=== PATIENT | female | born 1960 | race African-American/Black ===

== ENCOUNTER → 2017-12-20 11:59 | Outpatient (CLI) | payer OTHER, MEDICAID, SELFPAY ==
--- NOTE | 2017-12-20 | DI.MG.S_ITS ---
BILATERAL DIGITAL DIAGNOSTIC MAMMOGRAM 3D/2D: 12/20/2017 CLINICAL: Left breast mass. Family history of breast cancer. Comparison is made to exams dated: 11/29/2016 mammogram, 10/07/2015 mammogram - [facility], and 11/10/2010 mammogram - [facility]. The tissue of both breasts is predominantly fatty. There are stable prominent left axillary lymph nodes at the area of concern. No significant masses, calcifications, or other findings are seen in either breast. IMPRESSION: NEGATIVE There is no mammographic evidence of malignancy. The left axillary clinical area of concern may correspond to prominent lymph nodes. Recommend ultrasound. This exam was interpreted at Station ID: [id number]. NOTE: For mammograms, a report in lay terms will be sent to the patient. Approximately 15% of breast malignancies will not be visualized mammographically. In the management of a palpable breast mass, a negative mammogram must not discourage biopsy of a clinically suspicious lesion. Electronically Signed By: John Swann M.D. cj/:12/20/2017 14:43:51 copy to: Wilian Booth ACR BI-RADS Category 1: Negative [id number]
--- NOTE | 2017-12-20 | DI.US.S_ITS ---
ULTRASOUND OF LEFT BREAST: 12/20/2017 CLINICAL: Palpable left axilla lump. Comparison is made to exams dated: 12/20/2017 mammogram, 11/29/2016 mammogram, and 10/07/2015 mammogram - [facility]. Color flow ultrasound of the left breast was performed. Barajas scale images of the real-time examination were reviewed. There is a benign 4.7 cm lymph node in the left axillary tail. This correlates as palpated. IMPRESSION: BENIGN There is no sonographic evidence of malignancy. The 4.7 cm lymph node is benign. A 1 year screening mammogram is recommended. This exam was interpreted at Station ID: [id number]. Electronically Signed By: John hernandez/trent:12/20/2017 15:31:46 copy to: Wilian Booth letter sent: Normal Exam Ultrasound BI-RADS: 2 Benign
== END ==
PROVIDERS: Family Provider Family Medicine; PCP Family Medicine; Visit Provider Nurse Practitioner Family
DX: N63.20 Unspecified lump in the left breast, unspecified quadrant (principal); Z80.3 Family history of malignant neoplasm of breast
CPT/HCPCS: 76642; 77066; G0279

== ENCOUNTER → 2018-02-20 16:33 | Outpatient (CLI) | payer OTHER, MEDICAID, SELFPAY ==
[2018-02-20 17:04] LABS: Hemoglobin A1C% w Est Avg Glu 9.4 % (4.0-6.0)
== END ==
PROVIDERS: Family Provider Family Medicine; PCP Family Medicine; Visit Provider Family Medicine
DX: E11.9 Type 2 diabetes mellitus without complications (principal)
CPT/HCPCS: 36415; 83036

== ENCOUNTER → 2018-05-22 10:31 | Outpatient (CLI) | payer OTHER, MEDICAID, SELFPAY ==
[2018-05-22 12:31] LABS: Add Manual Diff / Slide Review NO; Basophils Percent Auto 0.5 % (0-2); Eosinophils Percent Auto 1.9 % (2-4); Hematocrit 38.3 % (36-46); Lymphocytes Percent Auto 25.4 % (25-40); Mean Corpuscular HGB Conc 31.3 % (30-36); Mean Corpuscular Hemoglobin 23.4 PG (26-34); Mean Corpuscular Volume 74.7 fL (80-100); Monocytes Percent Auto 5.5 % (3-14); Neutrophils Absolute Auto 7400 /uL (3000-5900); Neutrophils Percent Auto 66.7 % (50-75); Platelet Count 263 X10^3/uL (150-400); Red Blood Cell Count 5.12 X10^6/uL (4.0-5.2); Red Cell Distribution Width 16.6 % (11.6-14.8); White Blood Cell Count 11.2 X10^3/uL (4.5-11.0)
[2018-05-22 13:18] LABS: Alanine Aminotransferase 28 IU/L (9-52); Albumin 4.4 g/dL (3.5-5.0); Albumin Globulin Ratio 1.2 (1.0-2.8); Alkaline Phosphatase 112 U/L (38-126); Aspartate Aminotransferase 19 IU/L (14-36); BUN Creatinine Ratio 17.8 (6-22); Bilirubin Total 0.6 mg/dL (0.2-1.3); Blood Urea Nitrogen 16 mg/dL (7-17); Calcium 10.1 mg/dL (8.4-10.2); Carbon Dioxide 30 mmol/L (22-32); Chloride 101 mmol/L (98-107); Cholesterol 200 mg/dL (140-199); Estimated Glomerular Filt Rate > 60.0 mL/min (>60); Globulin 3.6 g/dL (1.7-4.1); Glucose 137 mg/dL (70-100); HDL Cholesterol 55 mg/dL (40-60); HEMOLYSIS < 15 (0-50); LDL Cholesterol Calculated 126 mg/dL (<100); Potassium 4.8 mmol/L (3.4-5.1); Sodium 144 mmol/L (137-145); Triglycerides 93 mg/dL (35-150)
[2018-05-22 16:07] LABS: TSH w/ Reflex to FT4 2.28 uIU/mL (0.47-4.68)
[2018-05-22 17:12] LABS: Hemoglobin A1C% w Est Avg Glu 9.6 % (4.0-6.0)
== END ==
PROVIDERS: PCP Family Medicine; Visit Provider Family Medicine
DX: E11.9 Type 2 diabetes mellitus without complications (principal); Z86.39 Personal history of other endocrine, nutritional and metabolic disease; E78.2 Mixed hyperlipidemia
CPT/HCPCS: 36415; 80053; 80061; 83036; 84443; 85025

== ENCOUNTER 2018-05-30 16:00 | Outpatient (RCR) | payer OTHER, MEDICAID, SELFPAY ==
--- NOTE | 2017-12-25 16:19 | PT.OIE ---
Current Diagnoses Unilateral primary osteoarthritis, left knee (12/24/17) Past Surgical History History of carpal tunnel repair Status post biopsy Status post biopsy Status post colonoscopy Status post hemorrhoidectomy Status post hysterectomy Provider Visit Care Team Role Provider Type Wilian Booth MD Family Provider Physician Primary Care Provider Specialty: Family Practice Address: [address] [place] [address], [id number] Email: [email or web address] Samantha Cruz PA-C Attending Provider Non-Staff Specialty: Medical Address: [address] [place] [address], [phone] Email: Physical Therapy Initial Evaluation PT-OP-A Visit Information Start: 12/24/17 17:35 Freq: Status: Active Protocol: Document 12/25/17 07:18 EA (Rec: 12/25/17 08:22 EA [id number]) Out-Patient Physical Therapy Visit Information Visit Information Visit Type Initial Evaluation Visit Start Time 16:00 Visit Stop Time 16:45 Total Visit Minutes 45 Visit Number 08/18 PT-OP-B Current Condition Start: 12/24/17 17:35 Freq: Status: Active Protocol: Document 12/25/17 07:18 EA (Rec: 12/25/17 08:22 EA [id number]) Current Condition History of Current Condition Onset Date 05/2017 Current Complaints Left localized knee pain History of Current Condition Pt reports fell down on May 2017a nd slammed anterio knee to concrete floor ; states swelling noted and applied ice and rest after the injury. Patient seen her doctor after a week or two and underwent x-ray with no result of fracture. Patient stated knee pain and swelling subsided and kept coming back with increased wlaking and stair climbing. On august 2017, patient [facility] and recommended knee use of knee brace and standard cane. Patient stated that she also received pain medication after that visit and that help her to managed pain. Patient reports had a vacation few weeks ago which she a lot of wlaking and feels knee agrravates again. Prior Treatments and Tests Pain medication and use of Knee prace. Treatment Goals Patient/Caregiver Goals Patient wants to eliminate pain and so she could walk normal. Prior Functional Status Baseline Function- ADL's Independent Baseline Function- Mobility Independent Current Functional Impairments (Reported) Functional Limitations- ADL's Indep Functional Limitations- Mobility/Gait Use of standard cane and knee brace with difficulty in stairs and long distance ambulation. Functional Limitations- Recreation/ Unable Hobbies PT-OP-C Subjective Start: 12/24/17 17:35 Freq: Status: Active Protocol: Document 12/25/17 07:18 EA (Rec: 12/25/17 08:22 EA [id number]) OP-PT Subjective Patient Comments Patient Comments Patient c/o localized left knee pain rated 5/10 with WB activities. Patient Reported Progress Same Patient Questionnaires Lower Extremity Functional Scale LEFS Impairment 60 to 79% Impaired (Score 17- 31) OP-PT Pain Assessment Pain Assessment Grid Paper Pain Assessment Grid Completed Yes Home Pain Medication Use Pain Medications Used Yes Pain Behaviors Pain Behaviors Guarding PT-OP-F Manual Assessment Start: 12/24/17 17:35 Freq: Status: Active Protocol: Document 12/25/17 07:18 EA (Rec: 12/25/17 08:22 EA [id number]) Manual Assessments Soft Tissue Assessment Soft Tissue Mobility Assessment Tight anterior thigh and calf muscles. Joint Mobility Assessment Joint Mobility Assessment unable to assess due to pain PT-OP-G Mobility & Gait Start: 12/24/17 17:35 Freq: Status: Active Protocol: Document 12/25/17 07:18 EA (Rec: 12/25/17 08:22 EA [id number]) OP Mobility Evaluation Bed Mobility Rolling indep Supine to and from Sit indep OP Gait Assessment Gait Gait Assistance Required: Independent Able to Maintain Weight Bearing Status Yes During Gait Assistive Devices Assistive Device Straight Cane Orthotic/Prosthetic Devices or Brace: Yes Gait Deviations General Gait Pattern Antalgic Factors Limiting Gait Function Factors Limiting Gait Function Decreased Strength Pain Stair Climbing Evaluation Evaluation Level of Assist On Stairs Independent Devices Stair Climbing Assistive Devices Straight Cane Technique/Endurance Stair Climbing Direction Ascend Stair Climbing Technique Step to Step Number of Steps Climbed 10 Query Text: Comments Stair Climbing Comments Requires rails due to weakness and pain to left knee PT-OP-J Posture/Palpation/Skin Start: 12/24/17 17:35 Freq: Status: Active Protocol: Document 12/25/17 08:22 EA (Rec: 12/25/17 08:56 EA [id number]) Posture Evaluation Position Standing Knee Posture (L) Genu Valgus (R) Genu Valgus Patellar Posture (L) Laterally Tilted (R) Laterally Tilted Ankle/Foot Posture (L) Pronated (R) Pronated Foot Arch (L) Low Arch (R) Low Arch Palpation Assessment Location One Palpation Location Quads, aand calf Palpation Findings Soft Tissue Tightness Muscle Guarding Tenderness PT-OP-K Range of Motion Start: 12/24/17 17:35 Freq: Status: Active Protocol: Document 12/25/17 08:22 EA (Rec: 12/25/17 08:56 EA [id number]) Knee Goniometric Range of Motion Knee Measured in Degrees Right Knee ROM WFL Yes Patient Position Supine Flexion Active (degrees) 125 Extension Passive (degrees) 0 Hyper-Extension Active 10 Left Knee ROM WFL Yes Patient Position Supine Flexion Active (degrees) 105 Extension Active (degrees) 0 Extension Passive (degrees) 0 Hyper-Extension Active 0 PT-OP-L Special Tests Start: 12/24/17 17:35 Freq: Status: Active Protocol: Document 12/25/17 08:22 EA (Rec: 12/25/17 08:56 EA [id number]) Special Tests Hip Special Tests Rosalba's Test Test Results both sides + Knee Special Tests Rosa Isela's Test Test Results + both sides Rosalba's Test Test Results positive Hughston Pica Test Test Results negative Varus- 0 Degrees Test Results negative Valgus- 25 Degrees Test Results negative Magdiel Test Test Results neg Patellar Grind Test Test Results positbe left side Freedom's Sign Test Results positive left knee Apley's Compression Test Results neg. on both sides PT-OP-M Strength Start: 12/24/17 17:35 Freq: Status: Active Protocol: Document 12/25/17 08:22 EA (Rec: 12/25/17 08:56 EA [id number]) Hip Strength Hip Manual Muscle Testing Right Flexion (L2) 5 Normal Extension (S1) 5 Normal Abduction 5 Normal Adduction 4 Good External Rotation 5 Normal Internal Rotation 4 Good Left Flexion (L2) 3+ Fair+ Extension (S1) 4 Good Abduction 5 Normal Adduction 4 Good External Rotation 5 Normal Internal Rotation 4 Good Knee Strength Knee Manual Muscle Testing Right Flexion (S2) 5 Normal Extension (L3) 5 Normal Left Flexion (S2) 5 Normal Extension (L3) 4 Good PT-OP-Q Treatments Start: 12/24/17 17:35 Freq: Status: Active Protocol: Document 12/25/17 08:22 EA (Rec: 12/25/17 08:56 EA [id number]) Self-Care/Home Management Treatment Education Patient Education Home Exercise Program Joint Protection Pain Management PT-OP-T Assessment and Plan Start: 12/24/17 17:35 Freq: Status: Active Protocol: Document 12/25/17 08:22 EA (Rec: 12/25/17 08:56 EA [id number]) Physical Therapy Assessment Rehab Potential Rehabilitation Potential Good Evaluation Complexity Number of Personal Factors/Comorbidities 3 or More Number of Body Systems Impaired 3 Clinical Presentation at Evaluation Evolving Impairments Impairments Activity Tolerance Gait Pain ROM Soft Tissue Mobility Strength Other Concerns Fall Risk no Age Related Concerns none Barriers to Rehabilitation Body weight and chronicity of the condition. Goals Five Impairment LEFS score of 26/80 Regulatory Intern Goal (LTG) LEFS score of 50/80 LTG Duration 4 wks Four Impairment Left quads and hip weakness Fpc Goal (LTG) Patient will exhibit one grade increase ms strength to left quads for improve stairs decsent and for functional weight bearing mobility. LTG Duration 4 wks Three Impairment Quads Mild tightness Regulatory Intern Goal (LTG) Patient will exhibit full excursion to left quds for effective gait. LTG Duration 4 wks Two Impairment Left knee HyperExt ROM Regulatory Intern Goal (LTG) Patient will exhibit 0-10 knee hyperextension for gait push off LTG Duration 3 wks One Impairment Pain scale of 5/10 with activity Fpc Goal (LTG) Patient with report 2/10 PS with activity LTG Duration 4 wks Assessment Summary Assessment Pleasant 57 y/o female patient w/ c/c of left knee pain and was diagnosed with left knee OA. Patient presented with gait difficulty due to pain and weakness to left knee. Test and assessment reveals tightness to both IT band and hip ext rotators, left quads and calves. Noted tender to touch to left anterior thigh with pain in hip extension. Patient also exhibits sensitive to Clarark's signs which indicative with PF OA. Weakness to left hip flexors and knee extensors is also evident. No indication of legamentous and meniscus dysfunction at the time of the test. In my professional opinion patient will benefit with skilled PT to address the aforementioned issues and reach established functional and treatment goals. Physical Therapy Plan Frequency and Duration Frequency of Treatment 2x/Week Plan of Care Start Date 12/24/17 Plan of Care End Date 02/18/18 Therapeutic Interventions Therapeutic Interventions Gait Training Home Exercise Program Joint Mobilizations Manual Therapy Self-Care/Home Management Soft Tissue Mobilization Taping Therapeutic Exercises Modalities Cold Pack/Ice Massage Electric Stimulation Hot Packs Ultrasound Next Visit Focus/Plan Next Visit Plan Begin Warm up and stretching to tight muscles. Patellar mobilization Please Sign and Return: I have reviewed this Plan of Care and certify that the skilled therapy services above are required to meet the patient???s needs. Physician Signature Date Printed Name and Credentials Clinical Instructor Signature Printed Name and Credentials
--- NOTE | 2018-01-07 16:47 | PT.OTN ---
Current Diagnoses Unilateral primary osteoarthritis, left knee (01/07/18) Physical Therapy Treatment Note PT-OP-A Visit Information Start: 12/24/17 17:35 Freq: Status: Active Protocol: Document 01/07/18 16:40 EA (Rec: 01/07/18 16:47 EA [id number]) Out-Patient Physical Therapy Visit Information Visit Information Visit Type Treatment Note Visit Start Time 16:00 Visit Stop Time 16:45 Total Visit Minutes 45 Visit Number 2/ PT-OP-B Current Condition Start: 12/24/17 17:35 Freq: Status: Active Protocol: Document 12/25/17 07:18 EA (Rec: 12/25/17 08:22 EA [id number]) Current Condition History of Current Condition Onset Date 05/2017 Current Complaints Left localized knee pain History of Current Condition Pt reports fell down on May 2017a nd slammed anterio knee to concrete floor ; states swelling noted and applied ice and rest after the injury. Patient seen her doctor after a week or two and underwent x-ray with no result of fracture. Patient stated knee pain and swelling subsided and kept coming back with increased wlaking and stair climbing. On august 2017, patient [facility] and recommended knee use of knee brace and standard cane. Patient stated that she also received pain medication after that visit and that help her to managed pain. Patient reports had a vacation few weeks ago which she a lot of wlaking and feels knee agrravates again. Prior Treatments and Tests Pain medication and use of Knee prace. Treatment Goals Patient/Caregiver Goals Patient wants to eliminate pain and so she could walk normal. Prior Functional Status Baseline Function- ADL's Independent Baseline Function- Mobility Independent Current Functional Impairments (Reported) Functional Limitations- ADL's Indep Functional Limitations- Mobility/Gait Use of standard cane and knee brace with difficulty in stairs and long distance ambulation. Functional Limitations- Recreation/ Unable Hobbies PT-OP-C Subjective Start: 12/24/17 17:35 Freq: Status: Active Protocol: Document 01/07/18 16:40 EA (Rec: 01/07/18 16:47 EA [id number]) OP-PT Subjective Patient Comments Patient Comments Pt reports left knee is a little better; states inner quads and hamstring is quite sore. PT-OP-F Manual Assessment Start: 12/24/17 17:35 Freq: Status: Active Protocol: Document 12/25/17 07:18 EA (Rec: 12/25/17 08:22 EA [id number]) Manual Assessments Soft Tissue Assessment Soft Tissue Mobility Assessment Tight anterior thigh and calf muscles. Joint Mobility Assessment Joint Mobility Assessment unable to assess due to pain PT-OP-G Mobility & Gait Start: 12/24/17 17:35 Freq: Status: Active Protocol: Document 12/25/17 07:18 EA (Rec: 12/25/17 08:22 EA [id number]) OP Mobility Evaluation Bed Mobility Rolling indep Supine to and from Sit indep OP Gait Assessment Gait Gait Assistance Required: Independent Able to Maintain Weight Bearing Status Yes During Gait Assistive Devices Assistive Device Straight Cane Orthotic/Prosthetic Devices or Brace: Yes Gait Deviations General Gait Pattern Antalgic Factors Limiting Gait Function Factors Limiting Gait Function Decreased Strength Pain Stair Climbing Evaluation Evaluation Level of Assist On Stairs Independent Devices Stair Climbing Assistive Devices Straight Cane Technique/Endurance Stair Climbing Direction Ascend Stair Climbing Technique Step to Step Number of Steps Climbed 10 Query Text: Comments Stair Climbing Comments Requires rails due to weakness and pain to left knee PT-OP-J Posture/Palpation/Skin Start: 12/24/17 17:35 Freq: Status: Active Protocol: Document 12/25/17 08:22 EA (Rec: 12/25/17 08:56 EA [id number]) Posture Evaluation Position Standing Knee Posture (L) Genu Valgus (R) Genu Valgus Patellar Posture (L) Laterally Tilted (R) Laterally Tilted Ankle/Foot Posture (L) Pronated (R) Pronated Foot Arch (L) Low Arch (R) Low Arch Palpation Assessment Location One Palpation Location Quads, aand calf Palpation Findings Soft Tissue Tightness Muscle Guarding Tenderness PT-OP-K Range of Motion Start: 12/24/17 17:35 Freq: Status: Active Protocol: Document 12/25/17 08:22 EA (Rec: 12/25/17 08:56 EA [id number]) Knee Goniometric Range of Motion Knee Measured in Degrees Right Knee ROM WFL Yes Patient Position Supine Flexion Active (degrees) 125 Extension Passive (degrees) 0 Hyper-Extension Active 10 Left Knee ROM WFL Yes Patient Position Supine Flexion Active (degrees) 105 Extension Active (degrees) 0 Extension Passive (degrees) 0 Hyper-Extension Active 0 PT-OP-L Special Tests Start: 12/24/17 17:35 Freq: Status: Active Protocol: Document 12/25/17 08:22 EA (Rec: 12/25/17 08:56 EA [id number]) Special Tests Hip Special Tests Rosalba's Test Test Results both sides + Knee Special Tests Rosa Isela's Test Test Results + both sides Rosalba's Test Test Results positive Hughston Pica Test Test Results negative Varus- 0 Degrees Test Results negative Valgus- 25 Degrees Test Results negative Magdiel Test Test Results neg Patellar Grind Test Test Results positbe left side Freedom's Sign Test Results positive left knee Apley's Compression Test Results neg. on both sides PT-OP-M Strength Start: 12/24/17 17:35 Freq: Status: Active Protocol: Document 12/25/17 08:22 EA (Rec: 12/25/17 08:56 EA [id number]) Hip Strength Hip Manual Muscle Testing Right Flexion (L2) 5 Normal Extension (S1) 5 Normal Abduction 5 Normal Adduction 4 Good External Rotation 5 Normal Internal Rotation 4 Good Left Flexion (L2) 3+ Fair+ Extension (S1) 4 Good Abduction 5 Normal Adduction 4 Good External Rotation 5 Normal Internal Rotation 4 Good Knee Strength Knee Manual Muscle Testing Right Flexion (S2) 5 Normal Extension (L3) 5 Normal Left Flexion (S2) 5 Normal Extension (L3) 4 Good PT-OP-Q Treatments Start: 12/24/17 17:35 Freq: Status: Active Protocol: Document 01/07/18 16:40 EA (Rec: 01/07/18 16:47 EA [id number]) Gym Equipment Shuttle Recovery Unilateral Squats Details pain free range Resistance 2 bands Reps/Time x 12 reps x 2 Therapeutic Exercises Supine Exercises 2 Supine Exercise Name Hamstring and hip rotators stretch Reps/Minutes x 15SH x 2 reps 1 Supine Exercise Name SAQ Side left Resistance 4# AW Reps/Minutes x 12 reps x 2 Prone Exercises 1 Prone Exercise Name Quads stretch Reps/Minutes x 15SH x 2 reps Manual Therapy Treatment Soft Tissue Mobilization 1 Body Location Distal quads, inner distal hamstring Mobilization Type Myofascial Release Sustained Pressure Intensity/Depth Moderate Body Position Sidelying/supine PT-OP-R Modalities Start: 12/24/17 17:35 Freq: Status: Active Protocol: Document 01/07/18 16:40 EA (Rec: 01/07/18 16:47 EA [id number]) Electric Stimulation Electric Stimulation Interferential Current (IFC) Body Location quads Duration (Minutes) 15 Combined With Heat/Cold Hot Pack PT-OP-T Assessment and Plan Start: 12/24/17 17:35 Freq: Status: Active Protocol: Document 01/07/18 16:40 EA (Rec: 01/07/18 16:47 EA [id number]) Physical Therapy Assessment Assessment Summary Assessment Tolerated treatment well Physical Therapy Plan Next Visit Focus/Plan Next Visit Plan Cont with current plan. Please Sign and Return: I have reviewed this Plan of Care and certify that the skilled therapy services above are required to meet the patient?s needs. Physician Signature Date Printed Name and Credentials Clinical Instructor Signature Printed Name and Credentials
--- NOTE | 2018-01-10 16:51 | PT.OTN ---
Current Diagnoses Unilateral primary osteoarthritis, left knee (01/10/18) Physical Therapy Treatment Note PT-OP-A Visit Information Start: 12/24/17 17:35 Freq: Status: Active Protocol: Document 01/10/18 16:36 EA (Rec: 01/10/18 16:44 EA [id number]) Out-Patient Physical Therapy Visit Information Visit Information Visit Type Treatment Note Visit Start Time 16:00 Visit Stop Time 16:45 Total Visit Minutes 53 Visit Number 3/ PT-OP-B Current Condition Start: 12/24/17 17:35 Freq: Status: Active Protocol: Document 12/25/17 07:18 EA (Rec: 12/25/17 08:22 EA [id number]) Current Condition History of Current Condition Onset Date 05/2017 Current Complaints Left localized knee pain History of Current Condition Pt reports fell down on May 2017a nd slammed anterio knee to concrete floor ; states swelling noted and applied ice and rest after the injury. Patient seen her doctor after a week or two and underwent x-ray with no result of fracture. Patient stated knee pain and swelling subsided and kept coming back with increased wlaking and stair climbing. On august 2017, patient went [facility] and recommended knee use of knee brace and standard cane. Patient stated that she also received pain medication after that visit and that help her to managed pain. Patient reports had a vacation few weeks ago which she a lot of wlaking and feels knee agrravates again. Prior Treatments and Tests Pain medication and use of Knee prace. Treatment Goals Patient/Caregiver Goals Patient wants to eliminate pain and so she could walk normal. Prior Functional Status Baseline Function- ADL's Independent Baseline Function- Mobility Independent Current Functional Impairments (Reported) Functional Limitations- ADL's Indep Functional Limitations- Mobility/Gait Use of standard cane and knee brace with difficulty in stairs and long distance ambulation. Functional Limitations- Recreation/ Unable Hobbies PT-OP-C Subjective Start: 12/24/17 17:35 Freq: Status: Active Protocol: Document 01/10/18 16:36 EA (Rec: 01/10/18 16:44 EA [id number]) OP-PT Subjective Patient Comments Patient Comments Patient received ambulating without knee brace and cane today; states knee feels much better but still hurts with increased weight bearing activities PT-OP-F Manual Assessment Start: 12/24/17 17:35 Freq: Status: Active Protocol: Document 12/25/17 07:18 EA (Rec: 12/25/17 08:22 EA [id number]) Manual Assessments Soft Tissue Assessment Soft Tissue Mobility Assessment Tight anterior thigh and calf muscles. Joint Mobility Assessment Joint Mobility Assessment unable to assess due to pain PT-OP-G Mobility & Gait Start: 12/24/17 17:35 Freq: Status: Active Protocol: Document 12/25/17 07:18 EA (Rec: 12/25/17 08:22 EA [id number]) OP Mobility Evaluation Bed Mobility Rolling indep Supine to and from Sit indep OP Gait Assessment Gait Gait Assistance Required: Independent Able to Maintain Weight Bearing Status Yes During Gait Assistive Devices Assistive Device Straight Cane Orthotic/Prosthetic Devices or Brace: Yes Gait Deviations General Gait Pattern Antalgic Factors Limiting Gait Function Factors Limiting Gait Function Decreased Strength Pain Stair Climbing Evaluation Evaluation Level of Assist On Stairs Independent Devices Stair Climbing Assistive Devices Straight Cane Technique/Endurance Stair Climbing Direction Ascend Stair Climbing Technique Step to Step Number of Steps Climbed 10 Query Text: Comments Stair Climbing Comments Requires rails due to weakness and pain to left knee PT-OP-J Posture/Palpation/Skin Start: 12/24/17 17:35 Freq: Status: Active Protocol: Document 12/25/17 08:22 EA (Rec: 12/25/17 08:56 EA [id number]) Posture Evaluation Position Standing Knee Posture (L) Genu Valgus (R) Genu Valgus Patellar Posture (L) Laterally Tilted (R) Laterally Tilted Ankle/Foot Posture (L) Pronated (R) Pronated Foot Arch (L) Low Arch (R) Low Arch Palpation Assessment Location One Palpation Location Quads, aand calf Palpation Findings Soft Tissue Tightness Muscle Guarding Tenderness PT-OP-K Range of Motion Start: 12/24/17 17:35 Freq: Status: Active Protocol: Document 12/25/17 08:22 EA (Rec: 12/25/17 08:56 EA [id number]) Knee Goniometric Range of Motion Knee Measured in Degrees Right Knee ROM WFL Yes Patient Position Supine Flexion Active (degrees) 125 Extension Passive (degrees) 0 Hyper-Extension Active 10 Left Knee ROM WFL Yes Patient Position Supine Flexion Active (degrees) 105 Extension Active (degrees) 0 Extension Passive (degrees) 0 Hyper-Extension Active 0 PT-OP-L Special Tests Start: 12/24/17 17:35 Freq: Status: Active Protocol: Document 12/25/17 08:22 EA (Rec: 12/25/17 08:56 EA [id number]) Special Tests Hip Special Tests Rosalba's Test Test Results both sides + Knee Special Tests Rosa Isela's Test Test Results + both sides Rosalba's Test Test Results positive Hughston Pica Test Test Results negative Varus- 0 Degrees Test Results negative Valgus- 25 Degrees Test Results negative Magdiel Test Test Results neg Patellar Grind Test Test Results positbe left side Freedom's Sign Test Results positive left knee Apley's Compression Test Results neg. on both sides PT-OP-M Strength Start: 12/24/17 17:35 Freq: Status: Active Protocol: Document 12/25/17 08:22 EA (Rec: 12/25/17 08:56 EA [id number]) Hip Strength Hip Manual Muscle Testing Right Flexion (L2) 5 Normal Extension (S1) 5 Normal Abduction 5 Normal Adduction 4 Good External Rotation 5 Normal Internal Rotation 4 Good Left Flexion (L2) 3+ Fair+ Extension (S1) 4 Good Abduction 5 Normal Adduction 4 Good External Rotation 5 Normal Internal Rotation 4 Good Knee Strength Knee Manual Muscle Testing Right Flexion (S2) 5 Normal Extension (L3) 5 Normal Left Flexion (S2) 5 Normal Extension (L3) 4 Good PT-OP-Q Treatments Start: 12/24/17 17:35 Freq: Status: Active Protocol: Document 01/10/18 16:36 EA (Rec: 01/10/18 16:44 EA [id number]) Cardio Equipment Recumbent Stepper (Sci-Fit) Duration (Minutes) 7 Resistance 2 Gym Equipment Cable Column (Body Solid) Leg Extension Resistance both LE Reps/Time x 12 reps x 2 Shuttle Recovery Bilateral Squats Details 0-90 deg Resistance 5 cords Reps/Time x 12reps x2 sets Unilateral Squats Details pain free range Resistance 2 bands Reps/Time x 12 reps x 2 Therapeutic Exercises Supine Exercises 2 Supine Exercise Name Hamstring and hip rotators stretch Reps/Minutes x 15SH x 2 reps 1 Supine Exercise Name SAQ Side left Resistance 4# AW Reps/Minutes x 12 reps x 2 Prone Exercises 1 Prone Exercise Name Quads stretch Reps/Minutes x 15SH x 2 reps Manual Therapy Treatment Soft Tissue Mobilization 1 Body Location Distal quads, inner distal hamstring Mobilization Type Myofascial Release Sustained Pressure Intensity/Depth Moderate Body Position Sidelying/supine Joint Mobilizations 1 Joint Left PF jnt Direction Medial Grade II Body Position Supine PT-OP-R Modalities Start: 12/24/17 17:35 Freq: Status: Active Protocol: Document 01/10/18 16:44 EA (Rec: 01/10/18 16:44 EA [id number]) Electric Stimulation Electric Stimulation Interferential Current (IFC) Body Location quads Duration (Minutes) 15 Combined With Heat/Cold Hot Pack PT-OP-T Assessment and Plan Start: 12/24/17 17:35 Freq: Status: Active Protocol: Document 01/10/18 16:36 EA (Rec: 01/10/18 16:44 EA [id number]) Physical Therapy Assessment Assessment Summary Assessment Tolerated treatment well. Physical Therapy Plan Next Visit Focus/Plan Next Visit Plan Progress as tolerated. Please Sign and Return: I have reviewed this Plan of Care and certify that the skilled therapy services above are required to meet the patient?s needs. Physician Signature Date Printed Name and Credentials Clinical Instructor Signature Printed Name and Credentials
--- NOTE | 2018-01-14 17:15 | PT.OTN ---
Current Diagnoses Unilateral primary osteoarthritis, left knee (01/14/18) Physical Therapy Treatment Note PT-OP-A Visit Information Start: 12/24/17 17:35 Freq: Status: Active Protocol: Document 01/14/18 17:08 EA (Rec: 01/14/18 17:13 EA [id number]) Out-Patient Physical Therapy Visit Information Visit Information Visit Type Treatment Note Visit Start Time 16:00 Visit Stop Time 16:45 Total Visit Minutes 40 Visit Number 4 PT-OP-B Current Condition Start: 12/24/17 17:35 Freq: Status: Active Protocol: Document 12/25/17 07:18 EA (Rec: 12/25/17 08:22 EA [id number]) Current Condition History of Current Condition Onset Date 05/2017 Current Complaints Left localized knee pain History of Current Condition Pt reports fell down on May 2017a nd slammed anterio knee to concrete floor ; states swelling noted and applied ice and rest after the injury. Patient seen her doctor after a week or two and underwent x-ray with no result of fracture. Patient stated knee pain and swelling subsided and kept coming back with increased wlaking and stair climbing. On august 2017, patient [facility] and recommended knee use of knee brace and standard cane. Patient stated that she also received pain medication after that visit and that help her to managed pain. Patient reports had a vacation few weeks ago which she a lot of wlaking and feels knee agrravates again. Prior Treatments and Tests Pain medication and use of Knee prace. Treatment Goals Patient/Caregiver Goals Patient wants to eliminate pain and so she could walk normal. Prior Functional Status Baseline Function- ADL's Independent Baseline Function- Mobility Independent Current Functional Impairments (Reported) Functional Limitations- ADL's Indep Functional Limitations- Mobility/Gait Use of standard cane and knee brace with difficulty in stairs and long distance ambulation. Functional Limitations- Recreation/ Unable Hobbies PT-OP-C Subjective Start: 12/24/17 17:35 Freq: Status: Active Protocol: Document 01/14/18 17:13 EA (Rec: 01/14/18 17:14 EA [id number]) OP-PT Subjective Patient Comments Patient Comments Patient reports she is lated due to heavy traffic encountered. Patient mentioned that she bought a soft ball to use for her HEP. Patient Reported Progress Improving PT-OP-F Manual Assessment Start: 12/24/17 17:35 Freq: Status: Active Protocol: Document 12/25/17 07:18 EA (Rec: 12/25/17 08:22 EA [id number]) Manual Assessments Soft Tissue Assessment Soft Tissue Mobility Assessment Tight anterior thigh and calf muscles. Joint Mobility Assessment Joint Mobility Assessment unable to assess due to pain PT-OP-G Mobility & Gait Start: 12/24/17 17:35 Freq: Status: Active Protocol: Document 12/25/17 07:18 EA (Rec: 12/25/17 08:22 EA [id number]) OP Mobility Evaluation Bed Mobility Rolling indep Supine to and from Sit indep OP Gait Assessment Gait Gait Assistance Required: Independent Able to Maintain Weight Bearing Status Yes During Gait Assistive Devices Assistive Device Straight Cane Orthotic/Prosthetic Devices or Brace: Yes Gait Deviations General Gait Pattern Antalgic Factors Limiting Gait Function Factors Limiting Gait Function Decreased Strength Pain Stair Climbing Evaluation Evaluation Level of Assist On Stairs Independent Devices Stair Climbing Assistive Devices Straight Cane Technique/Endurance Stair Climbing Direction Ascend Stair Climbing Technique Step to Step Number of Steps Climbed 10 Comments Stair Climbing Comments Requires rails due to weakness and pain to left knee PT-OP-J Posture/Palpation/Skin Start: 12/24/17 17:35 Freq: Status: Active Protocol: Document 12/25/17 08:22 EA (Rec: 12/25/17 08:56 EA [id number]) Posture Evaluation Position Standing Knee Posture (L) Genu Valgus (R) Genu Valgus Patellar Posture (L) Laterally Tilted (R) Laterally Tilted Ankle/Foot Posture (L) Pronated (R) Pronated Foot Arch (L) Low Arch (R) Low Arch Palpation Assessment Location One Palpation Location Quads, aand calf Palpation Findings Soft Tissue Tightness Muscle Guarding Tenderness PT-OP-K Range of Motion Start: 12/24/17 17:35 Freq: Status: Active Protocol: Document 12/25/17 08:22 EA (Rec: 12/25/17 08:56 EA [id number]) Knee Goniometric Range of Motion Knee Measured in Degrees Right Knee ROM WFL Yes Patient Position Supine Flexion Active (degrees) 125 Extension Passive (degrees) 0 Hyper-Extension Active 10 Left Knee ROM WFL Yes Patient Position Supine Flexion Active (degrees) 105 Extension Active (degrees) 0 Extension Passive (degrees) 0 Hyper-Extension Active 0 PT-OP-L Special Tests Start: 12/24/17 17:35 Freq: Status: Active Protocol: Document 12/25/17 08:22 EA (Rec: 12/25/17 08:56 EA [id number]) Special Tests Hip Special Tests Rosalba's Test Test Results both sides + Knee Special Tests Rosa Isela's Test Test Results + both sides Rosalba's Test Test Results positive Hughston Pica Test Test Results negative Varus- 0 Degrees Test Results negative Valgus- 25 Degrees Test Results negative Magdiel Test Test Results neg Patellar Grind Test Test Results positbe left side Freedom's Sign Test Results positive left knee Apley's Compression Test Results neg. on both sides PT-OP-M Strength Start: 12/24/17 17:35 Freq: Status: Active Protocol: Document 12/25/17 08:22 EA (Rec: 12/25/17 08:56 EA [id number]) Hip Strength Hip Manual Muscle Testing Right Flexion (L2) 5 Normal Extension (S1) 5 Normal Abduction 5 Normal Adduction 4 Good External Rotation 5 Normal Internal Rotation 4 Good Left Flexion (L2) 3+ Fair+ Extension (S1) 4 Good Abduction 5 Normal Adduction 4 Good External Rotation 5 Normal Internal Rotation 4 Good Knee Strength Knee Manual Muscle Testing Right Flexion (S2) 5 Normal Extension (L3) 5 Normal Left Flexion (S2) 5 Normal Extension (L3) 4 Good PT-OP-Q Treatments Start: 12/24/17 17:35 Freq: Status: Active Protocol: Document 01/14/18 17:08 EA (Rec: 01/14/18 17:13 EA [id number]) Gym Equipment Cable Column (Body Solid) Hip Adduction Resistance 3 plates Reps/Time 12 x 2 sets Leg Extension Resistance both LE Reps/Time x 12 reps x 2 Shuttle Recovery Bilateral Squats Details 0-90 deg Resistance 5 cords Reps/Time x 12reps x2 sets Unilateral Squats Details pain free range Resistance 3 bands Reps/Time x 12 reps x 2 Therapeutic Exercises Supine Exercises 2 Supine Exercise Name Hamstring and hip rotators stretch Reps/Minutes x 15SH x 2 reps Prone Exercises 1 Prone Exercise Name Quads stretch Reps/Minutes x 15SH x 2 reps Manual Therapy Treatment Soft Tissue Mobilization 1 Body Location Distal quads, inner distal hamstring Mobilization Type Myofascial Release Sustained Pressure Intensity/Depth Moderate Body Position Sidelying/supine Joint Mobilizations 1 Joint Left PF jnt Direction Medial Grade II Body Position Supine PT-OP-R Modalities Start: 12/24/17 17:35 Freq: Status: Active Protocol: Document 01/14/18 17:08 EA (Rec: 01/14/18 17:13 EA [id number]) Electric Stimulation Electric Stimulation Interferential Current (IFC) Body Location quads Duration (Minutes) 15 Combined With Heat/Cold Hot Pack PT-OP-T Assessment and Plan Start: 12/24/17 17:35 Freq: Status: Active Protocol: Document 01/14/18 17:08 EA (Rec: 01/14/18 17:13 EA [id number]) Physical Therapy Assessment Assessment Summary Assessment Patient tolerated treatment with no signs of discomfort during exercises. Patient is progressing well. Physical Therapy Plan Next Visit Focus/Plan Next Visit Plan Adavanced as tolerated Please Sign and Return: I have reviewed this Plan of Care and certify that the skilled therapy services above are required to meet the patient?s needs. Physician Signature Date Printed Name and Credentials Clinical Instructor Signature Printed Name and Credentials
--- NOTE | 2018-01-17 16:57 | PT.OTN ---
Current Diagnoses Unilateral primary osteoarthritis, left knee (01/17/18) Physical Therapy Treatment Note PT-OP-A Visit Information Start: 12/24/17 17:35 Freq: Status: Active Protocol: Document 01/17/18 16:49 EA (Rec: 01/17/18 16:56 EA [id number]) Out-Patient Physical Therapy Visit Information Visit Information Visit Type Treatment Note Visit Start Time 16:00 Visit Stop Time 16:53 Total Visit Minutes 53 Visit Number 5 PT-OP-B Current Condition Start: 12/24/17 17:35 Freq: Status: Active Protocol: Document 12/25/17 07:18 EA (Rec: 12/25/17 08:22 EA [id number]) Current Condition History of Current Condition Onset Date 05/2017 Current Complaints Left localized knee pain History of Current Condition Pt reports fell down on May 2017a nd slammed anterio knee to concrete floor ; states swelling noted and applied ice and rest after the injury. Patient seen her doctor after a week or two and underwent x-ray with no result of fracture. Patient stated knee pain and swelling subsided and kept coming back with increased wlaking and stair climbing. On august 2017, patient went [facility] and [facility] specialist and recommended knee use of knee brace and standard cane. Patient stated that she also received pain medication after that visit and that help her to managed pain. Patient reports had a vacation few weeks ago which she a lot of wlaking and feels knee agrravates again. Prior Treatments and Tests Pain medication and use of Knee prace. Treatment Goals Patient/Caregiver Goals Patient wants to eliminate pain and so she could walk normal. Prior Functional Status Baseline Function- ADL's Independent Baseline Function- Mobility Independent Current Functional Impairments (Reported) Functional Limitations- ADL's Indep Functional Limitations- Mobility/Gait Use of standard cane and knee brace with difficulty in stairs and long distance ambulation. Functional Limitations- Recreation/ Unable Hobbies PT-OP-C Subjective Start: 12/24/17 17:35 Freq: Status: Active Protocol: Document 01/17/18 16:49 EA (Rec: 01/17/18 16:56 EA [id number]) OP-PT Subjective Patient Comments Patient Comments Patient reports left knee is getting better; states inner thigh is quite sore. Patient Reported Progress Improving PT-OP-F Manual Assessment Start: 12/24/17 17:35 Freq: Status: Active Protocol: Document 12/25/17 07:18 EA (Rec: 12/25/17 08:22 EA [id number]) Manual Assessments Soft Tissue Assessment Soft Tissue Mobility Assessment Tight anterior thigh and calf muscles. Joint Mobility Assessment Joint Mobility Assessment unable to assess due to pain PT-OP-G Mobility & Gait Start: 12/24/17 17:35 Freq: Status: Active Protocol: Document 12/25/17 07:18 EA (Rec: 12/25/17 08:22 EA [id number]) OP Mobility Evaluation Bed Mobility Rolling indep Supine to and from Sit indep OP Gait Assessment Gait Gait Assistance Required: Independent Able to Maintain Weight Bearing Status Yes During Gait Assistive Devices Assistive Device Straight Cane Orthotic/Prosthetic Devices or Brace: Yes Gait Deviations General Gait Pattern Antalgic Factors Limiting Gait Function Factors Limiting Gait Function Decreased Strength Pain Stair Climbing Evaluation Evaluation Level of Assist On Stairs Independent Devices Stair Climbing Assistive Devices Straight Cane Technique/Endurance Stair Climbing Direction Ascend Stair Climbing Technique Step to Step Number of Steps Climbed 10 Comments Stair Climbing Comments Requires rails due to weakness and pain to left knee PT-OP-J Posture/Palpation/Skin Start: 12/24/17 17:35 Freq: Status: Active Protocol: Document 12/25/17 08:22 EA (Rec: 12/25/17 08:56 EA [id number]) Posture Evaluation Position Standing Knee Posture (L) Genu Valgus (R) Genu Valgus Patellar Posture (L) Laterally Tilted (R) Laterally Tilted Ankle/Foot Posture (L) Pronated (R) Pronated Foot Arch (L) Low Arch (R) Low Arch Palpation Assessment Location One Palpation Location Quads, aand calf Palpation Findings Soft Tissue Tightness Muscle Guarding Tenderness PT-OP-K Range of Motion Start: 12/24/17 17:35 Freq: Status: Active Protocol: Document 12/25/17 08:22 EA (Rec: 12/25/17 08:56 EA [id number]) Knee Goniometric Range of Motion Knee Measured in Degrees Right Knee ROM WFL Yes Patient Position Supine Flexion Active (degrees) 125 Extension Passive (degrees) 0 Hyper-Extension Active 10 Left Knee ROM WFL Yes Patient Position Supine Flexion Active (degrees) 105 Extension Active (degrees) 0 Extension Passive (degrees) 0 Hyper-Extension Active 0 PT-OP-L Special Tests Start: 12/24/17 17:35 Freq: Status: Active Protocol: Document 12/25/17 08:22 EA (Rec: 12/25/17 08:56 EA [id number]) Special Tests Hip Special Tests Rosalba's Test Test Results both sides + Knee Special Tests Rosa Isela's Test Test Results + both sides Rosalba's Test Test Results positive Hughston Pica Test Test Results negative Varus- 0 Degrees Test Results negative Valgus- 25 Degrees Test Results negative Magdiel Test Test Results neg Patellar Grind Test Test Results positbe left side Freedom's Sign Test Results positive left knee Apley's Compression Test Results neg. on both sides PT-OP-M Strength Start: 12/24/17 17:35 Freq: Status: Active Protocol: Document 12/25/17 08:22 EA (Rec: 12/25/17 08:56 EA [id number]) Hip Strength Hip Manual Muscle Testing Right Flexion (L2) 5 Normal Extension (S1) 5 Normal Abduction 5 Normal Adduction 4 Good External Rotation 5 Normal Internal Rotation 4 Good Left Flexion (L2) 3+ Fair+ Extension (S1) 4 Good Abduction 5 Normal Adduction 4 Good External Rotation 5 Normal Internal Rotation 4 Good Knee Strength Knee Manual Muscle Testing Right Flexion (S2) 5 Normal Extension (L3) 5 Normal Left Flexion (S2) 5 Normal Extension (L3) 4 Good PT-OP-Q Treatments Start: 12/24/17 17:35 Freq: Status: Active Protocol: Document 01/17/18 16:49 EA (Rec: 01/17/18 16:56 EA [id number]) Gym Equipment Cable Column (Body Solid) Hip Abduction Resistance 3-4 pltes Reps/Time x 12 reps x 2 sets Hip Adduction Resistance 3 plates Reps/Time 12 x 2 sets Leg Extension Resistance 3-4 Reps/Time x 12 reps x 2 Shuttle Recovery Bilateral Squats Details 0-90 deg Resistance 5 cords Reps/Time x 12reps x2 sets Unilateral Squats Details pain free range Resistance 3 bands Reps/Time x 12 reps x 2 Therapeutic Exercises Supine Exercises 2 Supine Exercise Name Hamstring and hip rotators stretch Reps/Minutes x 15SH x 2 reps Prone Exercises 1 Prone Exercise Name Quads stretch Reps/Minutes x 15SH x 2 reps Standing Exercises 1 Standing Exercise Name rails sit-stand exercises Reps/Minutes 10 reps x 2 sets Manual Therapy Treatment Soft Tissue Mobilization 1 Body Location Distal quads, inner distal hamstring Mobilization Type Myofascial Release Sustained Pressure Intensity/Depth Moderate Body Position Sidelying/supine Joint Mobilizations 1 Joint Left PF jnt Direction Medial Grade II Body Position Supine PT-OP-R Modalities Start: 12/24/17 17:35 Freq: Status: Active Protocol: Document 01/17/18 16:56 EA (Rec: 01/17/18 16:56 EA [id number]) Electric Stimulation Electric Stimulation Interferential Current (IFC) Body Location quads Duration (Minutes) 15 Combined With Heat/Cold Hot Pack PT-OP-T Assessment and Plan Start: 12/24/17 17:35 Freq: Status: Active Protocol: Document 01/17/18 16:49 EA (Rec: 01/17/18 16:56 EA [id number]) Physical Therapy Assessment Assessment Summary Assessment Noted improved strength and weight bearing exercises tolerance. Patient is progressing well. Cont. with current plan-progress as appropriate Physical Therapy Plan Next Visit Focus/Plan Next Note Type Treatment Note Next Visit Plan Advance as tolerated. Please Sign and Return: I have reviewed this Plan of Care and certify that the skilled therapy services above are required to meet the patient?s needs. Physician Signature Date Printed Name and Credentials Clinical Instructor Signature Printed Name and Credentials
--- NOTE | 2018-03-04 13:42 | PT.OTN ---
Current Diagnoses Unilateral primary osteoarthritis, left knee (02/28/18) Physical Therapy Treatment Note PT-OP-A Visit Information Start: 12/24/17 17:35 Freq: Status: Active Protocol: Document 02/28/18 16:37 EA (Rec: 02/28/18 16:50 EA [id number]) Out-Patient Physical Therapy Visit Information Visit Information Visit Type Treatment Note Visit Note re-eval performed to this date Visit Start Time 16:00 Visit Stop Time 16:40 Total Visit Minutes 40 Visit Number 01/16 PT-OP-B Current Condition Start: 12/24/17 17:35 Freq: Status: Active Protocol: Document 02/28/18 16:37 EA (Rec: 02/28/18 16:50 EA [id number]) Current Condition Treatment Goals Patient/Caregiver Goals Patient wants to eliminate knee pain Current Functional Impairments (Reported) Functional Limitations- ADL's Indep with min difficulty PT-OP-C Subjective Start: 12/24/17 17:35 Freq: Status: Active Protocol: Document 02/28/18 16:37 EA (Rec: 02/28/18 16:50 EA [id number]) OP-PT Subjective Patient Comments Patient Comments Patient reports her doctor is happy with the progress of her left knee; states doctor approved more session. Patient Reported Progress Improving PT-OP-F Manual Assessment Start: 12/24/17 17:35 Freq: Status: Active Protocol: Document 12/25/17 07:18 EA (Rec: 12/25/17 08:22 EA [id number]) Manual Assessments Soft Tissue Assessment Soft Tissue Mobility Assessment Tight anterior thigh and calf muscles. Joint Mobility Assessment Joint Mobility Assessment unable to assess due to pain PT-OP-G Mobility & Gait Start: 12/24/17 17:35 Freq: Status: Active Protocol: Document 02/28/18 16:37 EA (Rec: 02/28/18 16:50 EA [id number]) OP Gait Assessment Gait Gait Assistance Required: Independent Assistive Devices Assistive Device None Gait Deviations General Gait Pattern Antalgic Comments Gait Comments Minimal antalgic gait which much improved compare with initikal eval. PT-OP-J Posture/Palpation/Skin Start: 12/24/17 17:35 Freq: Status: Active Protocol: Document 12/25/17 08:22 EA (Rec: 12/25/17 08:56 EA [id number]) Posture Evaluation Position Standing Knee Posture (L) Genu Valgus (R) Genu Valgus Patellar Posture (L) Laterally Tilted (R) Laterally Tilted Ankle/Foot Posture (L) Pronated (R) Pronated Foot Arch (L) Low Arch (R) Low Arch Palpation Assessment Location One Palpation Location Quads, aand calf Palpation Findings Soft Tissue Tightness Muscle Guarding Tenderness PT-OP-K Range of Motion Start: 12/24/17 17:35 Freq: Status: Active Protocol: Document 02/28/18 16:37 EA (Rec: 02/28/18 16:50 EA [id number]) Knee Goniometric Range of Motion Knee Measured in Degrees Right Flexion Active (degrees) 125 Extension Active (degrees) 0 Left Flexion Active (degrees) 120 Extension Active (degrees) 0 Knee ROM Limitations Knee ROM Limitations Soft Tissue Tightness PT-OP-L Special Tests Start: 12/24/17 17:35 Freq: Status: Active Protocol: Document 12/25/17 08:22 EA (Rec: 12/25/17 08:56 EA [id number]) Special Tests Hip Special Tests Rosalba's Test Test Results both sides + Knee Special Tests Rosa Isela's Test Test Results + both sides Rosalba's Test Test Results positive Hughston Pica Test Test Results negative Varus- 0 Degrees Test Results negative Valgus- 25 Degrees Test Results negative Magdiel Test Test Results neg Patellar Grind Test Test Results positbe left side Freedom's Sign Test Results positive left knee Apley's Compression Test Results neg. on both sides PT-OP-M Strength Start: 12/24/17 17:35 Freq: Status: Active Protocol: Document 02/28/18 16:37 EA (Rec: 02/28/18 16:50 EA [id number]) Hip Strength Hip Manual Muscle Testing Right Flexion (L2) 5 Normal Extension (S1) 5 Normal Abduction 5 Normal Adduction 4+ Good+ External Rotation 5 Normal Internal Rotation 4+ Good+ Left Flexion (L2) 4 Good Extension (S1) 5 Normal Abduction 4+ Good+ Adduction 4+ Good+ External Rotation 4+ Good+ Internal Rotation 5 Normal Knee Strength Knee Manual Muscle Testing Right Flexion (S2) 5 Normal Extension (L3) 5 Normal Left Flexion (S2) 5 Normal Extension (L3) 4+ Good+ PT-OP-Q Treatments Start: 12/24/17 17:35 Freq: Status: Active Protocol: Document 02/28/18 16:40 EA (Rec: 03/04/18 13:41 EA [id number]) Manual Therapy Treatment Soft Tissue Mobilization 1 Body Location Distal quads, inner distal hamstring Mobilization Type Myofascial Release Sustained Pressure Intensity/Depth Moderate Body Position Sidelying/supine Joint Mobilizations 1 Joint Left PF jnt Direction Medial Grade II Body Position Supine PT-OP-R Modalities Start: 12/24/17 17:35 Freq: Status: Active Protocol: Document 02/28/18 16:40 EA (Rec: 03/04/18 13:41 EA [id number]) Electric Stimulation Electric Stimulation Interferential Current (IFC) Body Location quads Duration (Minutes) 15 Combined With Heat/Cold Hot Pack PT-OP-T Assessment and Plan Start: 12/24/17 17:35 Freq: Status: Active Protocol: Document 02/28/18 16:37 EA (Rec: 02/28/18 16:50 EA [id number]) Physical Therapy Assessment Goals Five Impairment LEFS score of 26/80 Assisted Goal (LTG) LEFS score of 50/80 LTG Duration 4 wks Four Impairment Left quads and hip weakness Assisted Goal (LTG) Patient will exhibit one grade increase ms strength to left quads for improve stairs descent and for functional weight bearing mobility. LTG Duration 4 wks Three Impairment Quads Mild tightness Grey Inspector Goal (LTG) Patient will exhibit full excursion to left quds for effective gait. LTG Duration 4 wks Two Impairment Left knee HyperExt ROM Assisted Goal (LTG) Patient will exhibit 0-10 knee hyperextension for gait push off LTG Duration 3 wks One Impairment Pain scale of 5/10 with activity Assisted Goal (LTG) Patient with report 2/10 PS with activity LTG Duration 4 wks Assessment Summary Assessment Patient is progressing well as to functional mobility. Advance as tolerated. Physical Therapy Plan Frequency and Duration Frequency of Treatment 2x/Week Plan of Care Start Date 02/28/18 Plan of Care End Date 04/25/18 Therapeutic Interventions Therapeutic Interventions Home Exercise Program Joint Mobilizations Manual Therapy Self-Care/Home Management Soft Tissue Mobilization Therapeutic Exercises Modalities Cold Pack/Ice Massage Electric Stimulation Hot Packs Ultrasound Next Visit Focus/Plan Next Note Type Treatment Note Next Visit Plan Provide HEP.
--- NOTE | 2018-03-04 13:42 | PT.OPPOC ---
Current Diagnoses Unilateral primary osteoarthritis, left knee (02/28/18) Provider Visit Care Team Role Provider Type Wilian Booth MD Family Provider Physician Primary Care Provider Specialty: Family Practice Address: [address] [place] [address], [id number] Email: [email or web address] Samantha Cruz PA-C Attending Provider Non-Staff Specialty: Medical Address: [address] [place] [address], [phone] Email: Plan Of Care PT-OP-T Assessment and Plan Start: 12/24/17 17:35 Freq: Status: Active Protocol: Document 02/28/18 16:37 EA (Rec: 02/28/18 16:50 EA [id number]) Physical Therapy Assessment Goals Five Impairment LEFS score of 26/80 Chaperon Goal (LTG) LEFS score of 50/80 LTG Duration 4 wks Four Impairment Left quads and hip weakness Chaperon Goal (LTG) Patient will exhibit one grade increase ms strength to left quads for improve stairs decsent and for functional weight bearing mobility. LTG Duration 4 wks Three Impairment Quads Mild tightness Chaperon Goal (LTG) Patient will exhibit full excursion to left quds for effective gait. LTG Duration 4 wks Two Impairment Left knee HyperExt ROM Chaperon Goal (LTG) Patient will exhibit 0-10 knee hyperextension for gait push off LTG Duration 3 wks One Impairment Pain scale of 5/10 with activity Chaperon Goal (LTG) Patient with report 2/10 PS with activity LTG Duration 4 wks Assessment Summary Assessment Patient is progressing well as to functional mobility. Advance as tolerated. Physical Therapy Plan Frequency and Duration Frequency of Treatment 2x/Week Plan of Care Start Date 02/28/18 Plan of Care End Date 04/25/18 Therapeutic Interventions Therapeutic Interventions Home Exercise Program Joint Mobilizations Manual Therapy Self-Care/Home Management Soft Tissue Mobilization Therapeutic Exercises Modalities Cold Pack/Ice Massage Electric Stimulation Hot Packs Ultrasound Next Visit Focus/Plan Next Note Type Treatment Note Next Visit Plan Provide HEP. Plan of Care Dates Plan of Care Start Date 02/28/18 Plan of Care End Date 04/25/18 Please Sign and Return: I have reviewed this Plan of Care and certify that the skilled therapy services above are required to meet the patient?s needs. Physician Signature Date Printed Name and Credentials Clinical Instructor Signature Printed Name and Credentials
--- NOTE | 2018-03-04 14:27 | PT.OPPN ---
Current Diagnoses Unilateral primary osteoarthritis, left knee (02/28/18) Physical Therapy Progress Note PT-OP-A Visit Information Start: 12/24/17 17:35 Freq: Status: Active Protocol: Document 02/28/18 16:37 EA (Rec: 02/28/18 16:50 EA [id number]) Out-Patient Physical Therapy Visit Information Visit Information Visit Type Treatment Note Visit Note re-eval performed to this date Visit Start Time 16:00 Visit Stop Time 16:40 Total Visit Minutes 40 Visit Number 01/16 PT-OP-B Current Condition Start: 12/24/17 17:35 Freq: Status: Active Protocol: Document 02/28/18 16:37 EA (Rec: 02/28/18 16:50 EA [id number]) Current Condition Treatment Goals Patient/Caregiver Goals Patient wants to eliminate knee pain Current Functional Impairments (Reported) Functional Limitations- ADL's Indep with min difficulty PT-OP-C Subjective Start: 12/24/17 17:35 Freq: Status: Active Protocol: Document 02/28/18 16:37 EA (Rec: 02/28/18 16:50 EA [id number]) OP-PT Subjective Patient Comments Patient Comments Patient reports her doctor is happy with the progress of her left knee; states doctor approved more session. Patient Reported Progress Improving PT-OP-F Manual Assessment Start: 12/24/17 17:35 Freq: Status: Active Protocol: Document 12/25/17 07:18 EA (Rec: 12/25/17 08:22 EA [id number]) Manual Assessments Soft Tissue Assessment Soft Tissue Mobility Assessment Tight anterior thigh and calf muscles. Joint Mobility Assessment Joint Mobility Assessment unable to assess due to pain PT-OP-G Mobility & Gait Start: 12/24/17 17:35 Freq: Status: Active Protocol: Document 02/28/18 16:37 EA (Rec: 02/28/18 16:50 EA [id number]) OP Gait Assessment Gait Gait Assistance Required: Independent Assistive Devices Assistive Device None Gait Deviations General Gait Pattern Antalgic Comments Gait Comments Minimal antalgic gait which much improved compare with initikal eval. PT-OP-J Posture/Palpation/Skin Start: 12/24/17 17:35 Freq: Status: Active Protocol: Document 12/25/17 08:22 EA (Rec: 12/25/17 08:56 EA [id number]) Posture Evaluation Position Standing Knee Posture (L) Genu Valgus (R) Genu Valgus Patellar Posture (L) Laterally Tilted (R) Laterally Tilted Ankle/Foot Posture (L) Pronated (R) Pronated Foot Arch (L) Low Arch (R) Low Arch Palpation Assessment Location One Palpation Location Quads, aand calf Palpation Findings Soft Tissue Tightness Muscle Guarding Tenderness PT-OP-K Range of Motion Start: 12/24/17 17:35 Freq: Status: Active Protocol: Document 02/28/18 16:37 EA (Rec: 02/28/18 16:50 EA [id number]) Knee Goniometric Range of Motion Knee Measured in Degrees Right Flexion Active (degrees) 125 Extension Active (degrees) 0 Left Flexion Active (degrees) 120 Extension Active (degrees) 0 Knee ROM Limitations Knee ROM Limitations Soft Tissue Tightness PT-OP-L Special Tests Start: 12/24/17 17:35 Freq: Status: Active Protocol: Document 12/25/17 08:22 EA (Rec: 12/25/17 08:56 EA [id number]) Special Tests Hip Special Tests Rosalba's Test Test Results both sides + Knee Special Tests Rosa Isela's Test Test Results + both sides Rosalba's Test Test Results positive Hughston Pica Test Test Results negative Varus- 0 Degrees Test Results negative Valgus- 25 Degrees Test Results negative Magdiel Test Test Results neg Patellar Grind Test Test Results positbe left side Freedom's Sign Test Results positive left knee Apley's Compression Test Results neg. on both sides PT-OP-M Strength Start: 12/24/17 17:35 Freq: Status: Active Protocol: Document 02/28/18 16:37 EA (Rec: 02/28/18 16:50 EA [id number]) Hip Strength Hip Manual Muscle Testing Right Flexion (L2) 5 Normal Extension (S1) 5 Normal Abduction 5 Normal Adduction 4+ Good+ External Rotation 5 Normal Internal Rotation 4+ Good+ Left Flexion (L2) 4 Good Extension (S1) 5 Normal Abduction 4+ Good+ Adduction 4+ Good+ External Rotation 4+ Good+ Internal Rotation 5 Normal Knee Strength Knee Manual Muscle Testing Right Flexion (S2) 5 Normal Extension (L3) 5 Normal Left Flexion (S2) 5 Normal Extension (L3) 4+ Good+ PT-OP-T Assessment and Plan Start: 12/24/17 17:35 Freq: Status: Active Protocol: Document 02/28/18 16:37 EA (Rec: 02/28/18 16:50 EA [id number]) Physical Therapy Assessment Goals Five Impairment LEFS score of 26/80 Residential Goal (LTG) LEFS score of 50/80 LTG Duration 4 wks Four Impairment Left quads and hip weakness Sizer Hand Goal (LTG) Patient will exhibit one grade increase ms strength to left quads for improve stairs decsent and for functional weight bearing mobility. LTG Duration 4 wks Three Impairment Quads Mild tightness Residential Goal (LTG) Patient will exhibit full excursion to left quds for effective gait. LTG Duration 4 wks Two Impairment Left knee HyperExt ROM Residential Goal (LTG) Patient will exhibit 0-10 knee hyperextension for gait push off LTG Duration 3 wks One Impairment Pain scale of 5/10 with activity Sizer Hand Goal (LTG) Patient with report 2/10 PS with activity LTG Duration 4 wks Assessment Summary Assessment Patient is progressing well as to functional mobility. Advance as tolerated. Physical Therapy Plan Frequency and Duration Frequency of Treatment 2x/Week Plan of Care Start Date 02/28/18 Plan of Care End Date 04/25/18 Therapeutic Interventions Therapeutic Interventions Home Exercise Program Joint Mobilizations Manual Therapy Self-Care/Home Management Soft Tissue Mobilization Therapeutic Exercises Modalities Cold Pack/Ice Massage Electric Stimulation Hot Packs Ultrasound Next Visit Focus/Plan Next Note Type Treatment Note Next Visit Plan Provide HEP.
--- NOTE | 2018-03-04 16:59 | PT.OTN ---
Current Diagnoses Unilateral primary osteoarthritis, left knee (03/04/18) Physical Therapy Treatment Note PT-OP-A Visit Information Start: 12/24/17 17:35 Freq: Status: Active Protocol: Document 03/04/18 16:51 EA (Rec: 03/04/18 16:58 EA [id number]) Out-Patient Physical Therapy Visit Information Visit Information Visit Type Treatment Note Visit Start Time 16:00 Visit Stop Time 16:53 Total Visit Minutes 53 Visit Number 01/17 PT-OP-B Current Condition Start: 12/24/17 17:35 Freq: Status: Active Protocol: Document 02/28/18 16:37 EA (Rec: 02/28/18 16:50 EA [id number]) Current Condition Treatment Goals Patient/Caregiver Goals Patient wants to eliminate knee pain Current Functional Impairments (Reported) Functional Limitations- ADL's Indep with min difficulty PT-OP-C Subjective Start: 12/24/17 17:35 Freq: Status: Active Protocol: Document 03/04/18 16:51 EA (Rec: 03/04/18 16:58 EA [id number]) OP-PT Subjective Patient Comments Patient Comments Patient reports that she is now able to perform fitness exercise and has been regular with swimming. Patient Reported Progress Improving PT-OP-F Manual Assessment Start: 12/24/17 17:35 Freq: Status: Active Protocol: Document 12/25/17 07:18 EA (Rec: 12/25/17 08:22 EA [id number]) Manual Assessments Soft Tissue Assessment Soft Tissue Mobility Assessment Tight anterior thigh and calf muscles. Joint Mobility Assessment Joint Mobility Assessment unable to assess due to pain PT-OP-G Mobility & Gait Start: 12/24/17 17:35 Freq: Status: Active Protocol: Document 02/28/18 16:37 EA (Rec: 02/28/18 16:50 EA [id number]) OP Gait Assessment Gait Gait Assistance Required: Independent Assistive Devices Assistive Device None Gait Deviations General Gait Pattern Antalgic Comments Gait Comments Minimal antalgic gait which much improved compare with initinilam garcia. PT-OP-J Posture/Palpation/Skin Start: 12/24/17 17:35 Freq: Status: Active Protocol: Document 12/25/17 08:22 EA (Rec: 12/25/17 08:56 EA [id number]) Posture Evaluation Position Standing Knee Posture (L) Genu Valgus (R) Genu Valgus Patellar Posture (L) Laterally Tilted (R) Laterally Tilted Ankle/Foot Posture (L) Pronated (R) Pronated Foot Arch (L) Low Arch (R) Low Arch Palpation Assessment Location One Palpation Location Quads, aand calf Palpation Findings Soft Tissue Tightness Muscle Guarding Tenderness PT-OP-K Range of Motion Start: 12/24/17 17:35 Freq: Status: Active Protocol: Document 02/28/18 16:37 EA (Rec: 02/28/18 16:50 EA [id number]) Knee Goniometric Range of Motion Knee Measured in Degrees Right Flexion Active (degrees) 125 Extension Active (degrees) 0 Left Flexion Active (degrees) 120 Extension Active (degrees) 0 Knee ROM Limitations Knee ROM Limitations Soft Tissue Tightness PT-OP-L Special Tests Start: 12/24/17 17:35 Freq: Status: Active Protocol: Document 12/25/17 08:22 EA (Rec: 12/25/17 08:56 EA [id number]) Special Tests Hip Special Tests Rosalba's Test Test Results both sides + Knee Special Tests Rosa Isela's Test Test Results + both sides Rosalba's Test Test Results positive Hughston Pica Test Test Results negative Varus- 0 Degrees Test Results negative Valgus- 25 Degrees Test Results negative Magdiel Test Test Results neg Patellar Grind Test Test Results positbe left side Freedom's Sign Test Results positive left knee Apley's Compression Test Results neg. on both sides PT-OP-M Strength Start: 12/24/17 17:35 Freq: Status: Active Protocol: Document 02/28/18 16:37 EA (Rec: 02/28/18 16:50 EA [id number]) Hip Strength Hip Manual Muscle Testing Right Flexion (L2) 5 Normal Extension (S1) 5 Normal Abduction 5 Normal Adduction 4+ Good+ External Rotation 5 Normal Internal Rotation 4+ Good+ Left Flexion (L2) 4 Good Extension (S1) 5 Normal Abduction 4+ Good+ Adduction 4+ Good+ External Rotation 4+ Good+ Internal Rotation 5 Normal Knee Strength Knee Manual Muscle Testing Right Flexion (S2) 5 Normal Extension (L3) 5 Normal Left Flexion (S2) 5 Normal Extension (L3) 4+ Good+ PT-OP-Q Treatments Start: 12/24/17 17:35 Freq: Status: Active Protocol: Document 03/04/18 16:51 EA (Rec: 03/04/18 16:58 EA [id number]) Cardio Equipment Recumbent Stepper (Sci-Fit) Duration (Minutes) 7 Resistance 2 Gym Equipment Cable Column (Body Solid) Hip Abduction Resistance 3-4 pltes Reps/Time x 12 reps x 2 sets Hip Adduction Resistance 3 plates Reps/Time 12 x 2 sets Leg Extension Resistance 3-4 Reps/Time x 12 reps x 2 Shuttle Recovery Bilateral Squats Details 0-90 deg Resistance 5 cords Reps/Time x 12reps x2 sets Unilateral Squats Details pain free range Resistance 3 bands Reps/Time x 12 reps x 2 Therapeutic Exercises Supine Exercises 2 Supine Exercise Name Hamstring and hip rotators stretch Reps/Minutes x 15SH x 2 reps Prone Exercises 1 Prone Exercise Name Quads stretch Reps/Minutes x 15SH x 2 reps Manual Therapy Treatment Soft Tissue Mobilization 1 Body Location Distal quads, inner distal hamstring Mobilization Type Myofascial Release Sustained Pressure Intensity/Depth Moderate Body Position Sidelying/supine PT-OP-R Modalities Start: 12/24/17 17:35 Freq: Status: Active Protocol: Document 03/04/18 16:51 EA (Rec: 03/04/18 16:58 EA [id number]) Electric Stimulation Electric Stimulation Interferential Current (IFC) Body Location quads Duration (Minutes) 15 Combined With Heat/Cold Hot Pack PT-OP-T Assessment and Plan Start: 12/24/17 17:35 Freq: Status: Active Protocol: Document 03/04/18 16:51 EA (Rec: 03/04/18 16:58 EA [id number]) Physical Therapy Assessment Assessment Summary Assessment Tolerated treatment well. Noted decreased tenderness over the qudas areas. Physical Therapy Plan Next Visit Focus/Plan Next Note Type Treatment Note Next Visit Plan Advance as tolerated
--- NOTE | 2018-03-27 16:50 | PT.OTN ---
Current Diagnoses Unilateral primary osteoarthritis, left knee (03/27/18) Physical Therapy Treatment Note PT-OP-A Visit Information Start: 12/24/17 17:35 Freq: Status: Active Protocol: Document 03/27/18 15:56 EA (Rec: 03/27/18 15:57 EA [id number]) Out-Patient Physical Therapy Visit Information Visit Information Visit Type Treatment Note Visit Start Time 15:15 Visit Stop Time 16:00 Total Visit Minutes 53 Visit Number 02/16 PT-OP-B Current Condition Start: 12/24/17 17:35 Freq: Status: Active Protocol: Document 02/28/18 16:37 EA (Rec: 02/28/18 16:50 EA [id number]) Current Condition Treatment Goals Patient/Caregiver Goals Patient wants to eliminate knee pain Current Functional Impairments (Reported) Functional Limitations- ADL's Indep with min difficulty PT-OP-C Subjective Start: 12/24/17 17:35 Freq: Status: Active Protocol: Document 03/27/18 15:21 EA (Rec: 03/27/18 15:56 EA [id number]) OP-PT Subjective Patient Comments Patient Comments Pt reports she has been on feet for a week and both feet is hurting; states left knee is bothering her as well. Patient Reported Progress Improving PT-OP-F Manual Assessment Start: 12/24/17 17:35 Freq: Status: Active Protocol: Document 12/25/17 07:18 EA (Rec: 12/25/17 08:22 EA [id number]) Manual Assessments Soft Tissue Assessment Soft Tissue Mobility Assessment Tight anterior thigh and calf muscles. Joint Mobility Assessment Joint Mobility Assessment unable to assess due to pain PT-OP-G Mobility & Gait Start: 12/24/17 17:35 Freq: Status: Active Protocol: Document 02/28/18 16:37 EA (Rec: 02/28/18 16:50 EA [id number]) OP Gait Assessment Gait Gait Assistance Required: Independent Assistive Devices Assistive Device None Gait Deviations General Gait Pattern Antalgic Comments Gait Comments Minimal antalgic gait which much improved compare with initinilam garcia. PT-OP-J Posture/Palpation/Skin Start: 12/24/17 17:35 Freq: Status: Active Protocol: Document 12/25/17 08:22 EA (Rec: 12/25/17 08:56 EA [id number]) Posture Evaluation Position Standing Knee Posture (L) Genu Valgus (R) Genu Valgus Patellar Posture (L) Laterally Tilted (R) Laterally Tilted Ankle/Foot Posture (L) Pronated (R) Pronated Foot Arch (L) Low Arch (R) Low Arch Palpation Assessment Location One Palpation Location Quads, aand calf Palpation Findings Soft Tissue Tightness Muscle Guarding Tenderness PT-OP-K Range of Motion Start: 12/24/17 17:35 Freq: Status: Active Protocol: Document 02/28/18 16:37 EA (Rec: 02/28/18 16:50 EA [id number]) Knee Goniometric Range of Motion Knee Measured in Degrees Right Flexion Active (degrees) 125 Extension Active (degrees) 0 Left Flexion Active (degrees) 120 Extension Active (degrees) 0 Knee ROM Limitations Knee ROM Limitations Soft Tissue Tightness PT-OP-L Special Tests Start: 12/24/17 17:35 Freq: Status: Active Protocol: Document 12/25/17 08:22 EA (Rec: 12/25/17 08:56 EA [id number]) Special Tests Hip Special Tests Rosalba's Test Test Results both sides + Knee Special Tests Rosa Isela's Test Test Results + both sides Rosalba's Test Test Results positive Hughston Pica Test Test Results negative Varus- 0 Degrees Test Results negative Valgus- 25 Degrees Test Results negative Magdiel Test Test Results neg Patellar Grind Test Test Results positbe left side Freedom's Sign Test Results positive left knee Apley's Compression Test Results neg. on both sides PT-OP-M Strength Start: 12/24/17 17:35 Freq: Status: Active Protocol: Document 02/28/18 16:37 EA (Rec: 02/28/18 16:50 EA [id number]) Hip Strength Hip Manual Muscle Testing Right Flexion (L2) 5 Normal Extension (S1) 5 Normal Abduction 5 Normal Adduction 4+ Good+ External Rotation 5 Normal Internal Rotation 4+ Good+ Left Flexion (L2) 4 Good Extension (S1) 5 Normal Abduction 4+ Good+ Adduction 4+ Good+ External Rotation 4+ Good+ Internal Rotation 5 Normal Knee Strength Knee Manual Muscle Testing Right Flexion (S2) 5 Normal Extension (L3) 5 Normal Left Flexion (S2) 5 Normal Extension (L3) 4+ Good+ PT-OP-Q Treatments Start: 12/24/17 17:35 Freq: Status: Active Protocol: Document 03/27/18 15:21 EA (Rec: 03/27/18 15:56 EA [id number]) Cardio Equipment Recumbent Stepper (Sci-Fit) Duration (Minutes) 8 Resistance 2.5 Gym Equipment Cable Column (Body Solid) Hip Abduction Resistance 3-4 pltes Reps/Time x 12 reps x 2 sets Hip Adduction Resistance 3 plates Reps/Time 12 x 2 sets Leg Extension Resistance 3-4 Reps/Time x 12 reps x 2 Shuttle Recovery Bilateral Squats Details 0-90 deg Resistance 5 cords Reps/Time x 12reps x2 sets Unilateral Squats Details pain free range Resistance 3 bands Reps/Time x 12 reps x 2 Therapeutic Exercises Supine Exercises 2 Supine Exercise Name Hamstring and hip rotators stretch Reps/Minutes x 15SH x 2 reps Prone Exercises 1 Prone Exercise Name Quads stretch Reps/Minutes x 15SH x 2 reps Standing Exercises 1 Standing Exercise Name rails sit-stand exercises Reps/Minutes 10 reps x 2 sets Manual Therapy Treatment Soft Tissue Mobilization 1 Body Location Distal quads, inner distal hamstring Mobilization Type Myofascial Release Sustained Pressure Intensity/Depth Moderate Body Position Sidelying/supine Joint Mobilizations 1 Joint Left PF jnt Direction Medial Grade II Body Position Supine PT-OP-R Modalities Start: 12/24/17 17:35 Freq: Status: Active Protocol: Document 03/27/18 15:21 EA (Rec: 03/27/18 15:56 EA [id number]) Electric Stimulation Electric Stimulation Interferential Current (IFC) Body Location quads Duration (Minutes) 15 Combined With Heat/Cold Hot Pack PT-OP-T Assessment and Plan Start: 12/24/17 17:35 Freq: Status: Active Protocol: Document 03/27/18 15:21 EA (Rec: 03/27/18 15:56 EA [id number]) Physical Therapy Assessment Assessment Summary Assessment Patient tolerated treatment well with no signs of difficulty. Patient is progressing well.
--- NOTE | 2018-04-03 16:52 | PT.OTN ---
Current Diagnoses Unilateral primary osteoarthritis, left knee (04/03/18) Physical Therapy Treatment Note PT-OP-A Visit Information Start: 12/24/17 17:35 Freq: Status: Active Protocol: Document 04/03/18 16:47 EA (Rec: 04/03/18 16:51 EA [id number]) Out-Patient Physical Therapy Visit Information Visit Information Visit Type Treatment Note Visit Start Time 15:15 Visit Stop Time 16:00 Total Visit Minutes 53 Visit Number 02/16 PT-OP-B Current Condition Start: 12/24/17 17:35 Freq: Status: Active Protocol: Document 02/28/18 16:37 EA (Rec: 02/28/18 16:50 EA [id number]) Current Condition Treatment Goals Patient/Caregiver Goals Patient wants to eliminate knee pain Current Functional Impairments (Reported) Functional Limitations- ADL's Indep with min difficulty PT-OP-C Subjective Start: 12/24/17 17:35 Freq: Status: Active Protocol: Document 04/03/18 16:47 EA (Rec: 04/03/18 16:51 EA [id number]) OP-PT Subjective Patient Comments Patient Comments Pt reports left knee is improving; states she has been doing fitness exercises with a weight loss goal. PT-OP-F Manual Assessment Start: 12/24/17 17:35 Freq: Status: Active Protocol: Document 12/25/17 07:18 EA (Rec: 12/25/17 08:22 EA [id number]) Manual Assessments Soft Tissue Assessment Soft Tissue Mobility Assessment Tight anterior thigh and calf muscles. Joint Mobility Assessment Joint Mobility Assessment unable to assess due to pain PT-OP-G Mobility & Gait Start: 12/24/17 17:35 Freq: Status: Active Protocol: Document 02/28/18 16:37 EA (Rec: 02/28/18 16:50 EA [id number]) OP Gait Assessment Gait Gait Assistance Required: Independent Assistive Devices Assistive Device None Gait Deviations General Gait Pattern Antalgic Comments Gait Comments Minimal antalgic gait which much improved compare with initinilam garcia. PT-OP-J Posture/Palpation/Skin Start: 12/24/17 17:35 Freq: Status: Active Protocol: Document 12/25/17 08:22 EA (Rec: 12/25/17 08:56 EA [id number]) Posture Evaluation Position Standing Knee Posture (L) Genu Valgus (R) Genu Valgus Patellar Posture (L) Laterally Tilted (R) Laterally Tilted Ankle/Foot Posture (L) Pronated (R) Pronated Foot Arch (L) Low Arch (R) Low Arch Palpation Assessment Location One Palpation Location Quads, aand calf Palpation Findings Soft Tissue Tightness Muscle Guarding Tenderness PT-OP-K Range of Motion Start: 12/24/17 17:35 Freq: Status: Active Protocol: Document 02/28/18 16:37 EA (Rec: 02/28/18 16:50 EA [id number]) Knee Goniometric Range of Motion Knee Measured in Degrees Right Flexion Active (degrees) 125 Extension Active (degrees) 0 Left Flexion Active (degrees) 120 Extension Active (degrees) 0 Knee ROM Limitations Knee ROM Limitations Soft Tissue Tightness PT-OP-L Special Tests Start: 12/24/17 17:35 Freq: Status: Active Protocol: Document 12/25/17 08:22 EA (Rec: 12/25/17 08:56 EA [id number]) Special Tests Hip Special Tests Rosalba's Test Test Results both sides + Knee Special Tests Rosa Isela's Test Test Results + both sides Rosalba's Test Test Results positive Hughston Pica Test Test Results negative Varus- 0 Degrees Test Results negative Valgus- 25 Degrees Test Results negative Magdiel Test Test Results neg Patellar Grind Test Test Results positbe left side Freedom's Sign Test Results positive left knee Apley's Compression Test Results neg. on both sides PT-OP-M Strength Start: 12/24/17 17:35 Freq: Status: Active Protocol: Document 02/28/18 16:37 EA (Rec: 02/28/18 16:50 EA [id number]) Hip Strength Hip Manual Muscle Testing Right Flexion (L2) 5 Normal Extension (S1) 5 Normal Abduction 5 Normal Adduction 4+ Good+ External Rotation 5 Normal Internal Rotation 4+ Good+ Left Flexion (L2) 4 Good Extension (S1) 5 Normal Abduction 4+ Good+ Adduction 4+ Good+ External Rotation 4+ Good+ Internal Rotation 5 Normal Knee Strength Knee Manual Muscle Testing Right Flexion (S2) 5 Normal Extension (L3) 5 Normal Left Flexion (S2) 5 Normal Extension (L3) 4+ Good+ PT-OP-Q Treatments Start: 12/24/17 17:35 Freq: Status: Active Protocol: Document 04/03/18 16:47 EA (Rec: 04/03/18 16:51 EA [id number]) Cardio Equipment Recumbent Stepper (Sci-Fit) Duration (Minutes) 7 Resistance 2.5 Gym Equipment Cable Column (Body Solid) Hip Abduction Resistance 3-5 pltes Reps/Time x 12 reps x 3 sets Hip Adduction Resistance 3 plates Reps/Time 12 x 2 sets Leg Extension Resistance 3-4 Reps/Time x 12 reps x 3 Shuttle Recovery Bilateral Squats Details 0-90 deg Resistance 5 cords Reps/Time x 12reps x2 sets Unilateral Squats Details pain free range Resistance 3 bands Reps/Time x 12 reps x 2 Therapeutic Exercises Supine Exercises 2 Supine Exercise Name Hamstring and hip rotators stretch Reps/Minutes x 15SH x 2 reps 1 Supine Exercise Name IT band stretch Reps/Minutes x 15SH x 2 reps Prone Exercises 1 Prone Exercise Name Quads stretch Reps/Minutes x 15SH x 2 reps Manual Therapy Treatment Soft Tissue Mobilization 1 Body Location Distal quads, inner distal hamstring Mobilization Type Myofascial Release Sustained Pressure Intensity/Depth Moderate Body Position Sidelying/supine Joint Mobilizations 1 Joint Left PF jnt Direction Medial Grade II Body Position Supine PT-OP-R Modalities Start: 12/24/17 17:35 Freq: Status: Active Protocol: Document 04/03/18 16:51 EA (Rec: 04/03/18 16:52 EA [id number]) Electric Stimulation Electric Stimulation Interferential Current (IFC) Body Location quads Duration (Minutes) 15 Combined With Heat/Cold Hot Pack PT-OP-T Assessment and Plan Start: 12/24/17 17:35 Freq: Status: Active Protocol: Document 04/03/18 16:47 EA (Rec: 04/03/18 16:51 EA [id number]) Physical Therapy Assessment Assessment Summary Assessment Patient had less pain after treatment. Cont with current plan. Physical Therapy Plan Next Visit Focus/Plan Next Note Type Treatment Note Next Visit Plan add functional standing exercises
--- NOTE | 2018-04-10 16:53 | PT.OTN ---
Current Diagnoses Unilateral primary osteoarthritis, left knee (04/10/18) Physical Therapy Treatment Note PT-OP-A Visit Information Start: 12/24/17 17:35 Freq: Status: Active Protocol: Document 04/10/18 15:31 EA (Rec: 04/10/18 15:55 EA [id number]) Out-Patient Physical Therapy Visit Information Visit Information Visit Start Time 15:30 Visit Stop Time 16:15 Total Visit Minutes 45 Visit Number 10 PT-OP-B Current Condition Start: 12/24/17 17:35 Freq: Status: Active Protocol: Document 02/28/18 16:37 EA (Rec: 02/28/18 16:50 EA [id number]) Current Condition Treatment Goals Patient/Caregiver Goals Patient wants to eliminate knee pain Current Functional Impairments (Reported) Functional Limitations- ADL's Indep with min difficulty PT-OP-C Subjective Start: 12/24/17 17:35 Freq: Status: Active Protocol: Document 04/10/18 15:31 EA (Rec: 04/10/18 15:55 EA [id number]) OP-PT Subjective Patient Comments Patient Comments Pt reports knee is feeling much better as she believed it is due to Pilates execises at home. PT-OP-F Manual Assessment Start: 12/24/17 17:35 Freq: Status: Active Protocol: Document 12/25/17 07:18 EA (Rec: 12/25/17 08:22 EA [id number]) Manual Assessments Soft Tissue Assessment Soft Tissue Mobility Assessment Tight anterior thigh and calf muscles. Joint Mobility Assessment Joint Mobility Assessment unable to assess due to pain PT-OP-G Mobility & Gait Start: 12/24/17 17:35 Freq: Status: Active Protocol: Document 02/28/18 16:37 EA (Rec: 02/28/18 16:50 EA [id number]) OP Gait Assessment Gait Gait Assistance Required: Independent Assistive Devices Assistive Device None Gait Deviations General Gait Pattern Antalgic Comments Gait Comments Minimal antalgic gait which much improved compare with initikal carmelaal. PT-OP-J Posture/Palpation/Skin Start: 12/24/17 17:35 Freq: Status: Active Protocol: Document 12/25/17 08:22 EA (Rec: 12/25/17 08:56 EA [id number]) Posture Evaluation Position Standing Knee Posture (L) Genu Valgus (R) Genu Valgus Patellar Posture (L) Laterally Tilted (R) Laterally Tilted Ankle/Foot Posture (L) Pronated (R) Pronated Foot Arch (L) Low Arch (R) Low Arch Palpation Assessment Location One Palpation Location Quads, aand calf Palpation Findings Soft Tissue Tightness Muscle Guarding Tenderness PT-OP-K Range of Motion Start: 12/24/17 17:35 Freq: Status: Active Protocol: Document 02/28/18 16:37 EA (Rec: 02/28/18 16:50 EA [id number]) Knee Goniometric Range of Motion Knee Measured in Degrees Right Flexion Active (degrees) 125 Extension Active (degrees) 0 Left Flexion Active (degrees) 120 Extension Active (degrees) 0 Knee ROM Limitations Knee ROM Limitations Soft Tissue Tightness PT-OP-L Special Tests Start: 12/24/17 17:35 Freq: Status: Active Protocol: Document 12/25/17 08:22 EA (Rec: 12/25/17 08:56 EA [id number]) Special Tests Hip Special Tests Rosalba's Test Test Results both sides + Knee Special Tests Rosa Isela's Test Test Results + both sides Rosalba's Test Test Results positive Hughston Pica Test Test Results negative Varus- 0 Degrees Test Results negative Valgus- 25 Degrees Test Results negative Magdiel Test Test Results neg Patellar Grind Test Test Results positbe left side Freedom's Sign Test Results positive left knee Apley's Compression Test Results neg. on both sides PT-OP-M Strength Start: 12/24/17 17:35 Freq: Status: Active Protocol: Document 02/28/18 16:37 EA (Rec: 02/28/18 16:50 EA [id number]) Hip Strength Hip Manual Muscle Testing Right Flexion (L2) 5 Normal Extension (S1) 5 Normal Abduction 5 Normal Adduction 4+ Good+ External Rotation 5 Normal Internal Rotation 4+ Good+ Left Flexion (L2) 4 Good Extension (S1) 5 Normal Abduction 4+ Good+ Adduction 4+ Good+ External Rotation 4+ Good+ Internal Rotation 5 Normal Knee Strength Knee Manual Muscle Testing Right Flexion (S2) 5 Normal Extension (L3) 5 Normal Left Flexion (S2) 5 Normal Extension (L3) 4+ Good+ PT-OP-Q Treatments Start: 12/24/17 17:35 Freq: Status: Active Protocol: Document 04/10/18 15:31 EA (Rec: 04/10/18 15:55 EA [id number]) Cardio Equipment Recumbent Stepper (Sci-Fit) Duration (Minutes) 7 Resistance 2.5 Gym Equipment Cable Column (Body Solid) Hip Adduction Resistance 3 plates Reps/Time 12 x 2 sets Leg Extension Resistance 3-4 Reps/Time x 12 reps x 3 Therapeutic Exercises Supine Exercises 2 Supine Exercise Name Hamstring and hip rotators stretch Reps/Minutes x 15SH x 2 reps 1 Supine Exercise Name IT band stretch Reps/Minutes x 15SH x 2 reps Prone Exercises 1 Prone Exercise Name Quads stretch Reps/Minutes x 15SH x 2 reps Manual Therapy Treatment Soft Tissue Mobilization 1 Body Location Distal quads, inner distal hamstring Mobilization Type Myofascial Release Sustained Pressure Intensity/Depth Moderate Body Position Sidelying/supine Joint Mobilizations 1 Joint Left PF jnt Direction Medial Grade II Body Position Supine PT-OP-R Modalities Start: 12/24/17 17:35 Freq: Status: Active Protocol: Document 04/10/18 15:31 EA (Rec: 04/10/18 15:55 EA [id number]) Electric Stimulation Electric Stimulation Interferential Current (IFC) Body Location quads Duration (Minutes) 15 Combined With Heat/Cold Hot Pack PT-OP-T Assessment and Plan Start: 12/24/17 17:35 Freq: Status: Active Protocol: Document 04/10/18 15:31 EA (Rec: 04/10/18 15:55 EA [id number]) Physical Therapy Assessment Assessment Summary Assessment Patient progressing well. Advance as tolerated. Physical Therapy Plan Next Visit Focus/Plan Next Note Type Treatment Note Next Visit Plan add functional standing exercises
--- NOTE | 2018-04-17 16:02 | PT.OTN ---
Current Diagnoses Unilateral primary osteoarthritis, left knee (04/17/18) Physical Therapy Treatment Note PT-OP-A Visit Information Start: 12/24/17 17:35 Freq: Status: Active Protocol: Document 04/17/18 15:26 EA (Rec: 04/17/18 16:01 EA [id number]) Out-Patient Physical Therapy Visit Information Visit Information Visit Start Time 15:15 Visit Stop Time 16:00 Total Visit Minutes 45 Visit Number 06/19 PT-OP-B Current Condition Start: 12/24/17 17:35 Freq: Status: Active Protocol: Document 02/28/18 16:37 EA (Rec: 02/28/18 16:50 EA [id number]) Current Condition Treatment Goals Patient/Caregiver Goals Patient wants to eliminate knee pain Current Functional Impairments (Reported) Functional Limitations- ADL's Indep with min difficulty PT-OP-C Subjective Start: 12/24/17 17:35 Freq: Status: Active Protocol: Document 04/17/18 16:01 EA (Rec: 04/17/18 16:01 EA [id number]) OP-PT Subjective Patient Comments Patient Comments Patient reports left knee is getting better; states she has been wlaking alot in the past few days. Patient Reported Progress Improving PT-OP-F Manual Assessment Start: 12/24/17 17:35 Freq: Status: Active Protocol: Document 12/25/17 07:18 EA (Rec: 12/25/17 08:22 EA [id number]) Manual Assessments Soft Tissue Assessment Soft Tissue Mobility Assessment Tight anterior thigh and calf muscles. Joint Mobility Assessment Joint Mobility Assessment unable to assess due to pain PT-OP-G Mobility & Gait Start: 12/24/17 17:35 Freq: Status: Active Protocol: Document 02/28/18 16:37 EA (Rec: 02/28/18 16:50 EA [id number]) OP Gait Assessment Gait Gait Assistance Required: Independent Assistive Devices Assistive Device None Gait Deviations General Gait Pattern Antalgic Comments Gait Comments Minimal antalgic gait which much improved compare with initinilam caseyal. PT-OP-J Posture/Palpation/Skin Start: 12/24/17 17:35 Freq: Status: Active Protocol: Document 12/25/17 08:22 EA (Rec: 12/25/17 08:56 EA [id number]) Posture Evaluation Position Standing Knee Posture (L) Genu Valgus (R) Genu Valgus Patellar Posture (L) Laterally Tilted (R) Laterally Tilted Ankle/Foot Posture (L) Pronated (R) Pronated Foot Arch (L) Low Arch (R) Low Arch Palpation Assessment Location One Palpation Location Quads, aand calf Palpation Findings Soft Tissue Tightness Muscle Guarding Tenderness PT-OP-K Range of Motion Start: 12/24/17 17:35 Freq: Status: Active Protocol: Document 02/28/18 16:37 EA (Rec: 02/28/18 16:50 EA [id number]) Knee Goniometric Range of Motion Knee Measured in Degrees Right Flexion Active (degrees) 125 Extension Active (degrees) 0 Left Flexion Active (degrees) 120 Extension Active (degrees) 0 Knee ROM Limitations Knee ROM Limitations Soft Tissue Tightness PT-OP-L Special Tests Start: 12/24/17 17:35 Freq: Status: Active Protocol: Document 12/25/17 08:22 EA (Rec: 12/25/17 08:56 EA [id number]) Special Tests Hip Special Tests Rosalba's Test Test Results both sides + Knee Special Tests Rosa Isela's Test Test Results + both sides Rosalba's Test Test Results positive Hughston Pica Test Test Results negative Varus- 0 Degrees Test Results negative Valgus- 25 Degrees Test Results negative Magdiel Test Test Results neg Patellar Grind Test Test Results positbe left side Freedom's Sign Test Results positive left knee Apley's Compression Test Results neg. on both sides PT-OP-M Strength Start: 12/24/17 17:35 Freq: Status: Active Protocol: Document 02/28/18 16:37 EA (Rec: 02/28/18 16:50 EA [id number]) Hip Strength Hip Manual Muscle Testing Right Flexion (L2) 5 Normal Extension (S1) 5 Normal Abduction 5 Normal Adduction 4+ Good+ External Rotation 5 Normal Internal Rotation 4+ Good+ Left Flexion (L2) 4 Good Extension (S1) 5 Normal Abduction 4+ Good+ Adduction 4+ Good+ External Rotation 4+ Good+ Internal Rotation 5 Normal Knee Strength Knee Manual Muscle Testing Right Flexion (S2) 5 Normal Extension (L3) 5 Normal Left Flexion (S2) 5 Normal Extension (L3) 4+ Good+ PT-OP-Q Treatments Start: 12/24/17 17:35 Freq: Status: Active Protocol: Document 04/17/18 15:26 EA (Rec: 04/17/18 16:01 EA [id number]) Cardio Equipment Recumbent Stepper (Sci-Fit) Duration (Minutes) 7 Resistance 3.0 Gym Equipment Cable Column (Body Solid) Hip Abduction Resistance 3-5 pltes Reps/Time x 12 reps x 3 sets Hip Adduction Resistance 3 plates Reps/Time 12 x 2 sets Leg Extension Resistance 3-4 Reps/Time x 12 reps x 3 Shuttle Recovery Bilateral Squats Details 0-90 deg Resistance 6 cords Reps/Time x 12reps x2 sets Unilateral Squats Details pain free range Resistance 4 bands Reps/Time x 12 reps x 2 Therapeutic Exercises Supine Exercises 2 Supine Exercise Name Hamstring and hip rotators stretch Reps/Minutes x 15SH x 2 reps 1 Supine Exercise Name IT band stretch Reps/Minutes x 15SH x 2 reps Prone Exercises 1 Prone Exercise Name Quads stretch Reps/Minutes x 15SH x 2 reps Standing Exercises 2 Standing Exercise Name // Bars steady lunges Reps/Minutes x 6 reps x 2 sets each Comments Partial 1 Standing Exercise Name 6 steps lunges Reps/Minutes x 10 reps x 2 sets PT-OP-R Modalities Start: 12/24/17 17:35 Freq: Status: Active Protocol: Document 04/17/18 15:26 EA (Rec: 04/17/18 16:01 EA [id number]) Electric Stimulation Electric Stimulation Interferential Current (IFC) Body Location quads Duration (Minutes) 15 Combined With Heat/Cold Hot Pack PT-OP-T Assessment and Plan Start: 12/24/17 17:35 Freq: Status: Active Protocol: Document 04/17/18 15:26 EA (Rec: 04/17/18 16:01 EA [id number]) Physical Therapy Assessment Assessment Summary Assessment Pt tolerated treatment with no signs of discomfort. Physical Therapy Plan Next Visit Focus/Plan Next Note Type Treatment Note Next Visit Plan add functional standing exercises
--- NOTE | 2018-04-22 16:45 | PT.OTN ---
Current Diagnoses Unilateral primary osteoarthritis, left knee (04/22/18) Physical Therapy Treatment Note PT-OP-A Visit Information Start: 12/24/17 17:35 Freq: Status: Active Protocol: Document 04/22/18 15:23 EA (Rec: 04/22/18 16:01 EA [id number]) Out-Patient Physical Therapy Visit Information Visit Information Visit Type Treatment Note Visit Start Time 15:15 Visit Stop Time 16:00 Total Visit Minutes 40 Visit Number 07/19 PT-OP-B Current Condition Start: 12/24/17 17:35 Freq: Status: Active Protocol: Document 02/28/18 16:37 EA (Rec: 02/28/18 16:50 EA [id number]) Current Condition Treatment Goals Patient/Caregiver Goals Patient wants to eliminate knee pain Current Functional Impairments (Reported) Functional Limitations- ADL's Indep with min difficulty PT-OP-C Subjective Start: 12/24/17 17:35 Freq: Status: Active Protocol: Document 04/22/18 15:23 EA (Rec: 04/22/18 16:01 EA [id number]) OP-PT Subjective Patient Comments Patient Comments Pt report left knee is doing much better; states she is concern most with both ankle swelling. Patient Reported Progress Improving PT-OP-F Manual Assessment Start: 12/24/17 17:35 Freq: Status: Active Protocol: Document 12/25/17 07:18 EA (Rec: 12/25/17 08:22 EA [id number]) Manual Assessments Soft Tissue Assessment Soft Tissue Mobility Assessment Tight anterior thigh and calf muscles. Joint Mobility Assessment Joint Mobility Assessment unable to assess due to pain PT-OP-G Mobility & Gait Start: 12/24/17 17:35 Freq: Status: Active Protocol: Document 02/28/18 16:37 EA (Rec: 02/28/18 16:50 EA [id number]) OP Gait Assessment Gait Gait Assistance Required: Independent Assistive Devices Assistive Device None Gait Deviations General Gait Pattern Antalgic Comments Gait Comments Minimal antalgic gait which much improved compare with initiheshaml carmelaal. PT-OP-J Posture/Palpation/Skin Start: 12/24/17 17:35 Freq: Status: Active Protocol: Document 12/25/17 08:22 EA (Rec: 12/25/17 08:56 EA [id number]) Posture Evaluation Position Standing Knee Posture (L) Genu Valgus (R) Genu Valgus Patellar Posture (L) Laterally Tilted (R) Laterally Tilted Ankle/Foot Posture (L) Pronated (R) Pronated Foot Arch (L) Low Arch (R) Low Arch Palpation Assessment Location One Palpation Location Quads, aand calf Palpation Findings Soft Tissue Tightness Muscle Guarding Tenderness PT-OP-K Range of Motion Start: 12/24/17 17:35 Freq: Status: Active Protocol: Document 02/28/18 16:37 EA (Rec: 02/28/18 16:50 EA [id number]) Knee Goniometric Range of Motion Knee Measured in Degrees Right Flexion Active (degrees) 125 Extension Active (degrees) 0 Left Flexion Active (degrees) 120 Extension Active (degrees) 0 Knee ROM Limitations Knee ROM Limitations Soft Tissue Tightness PT-OP-L Special Tests Start: 12/24/17 17:35 Freq: Status: Active Protocol: Document 12/25/17 08:22 EA (Rec: 12/25/17 08:56 EA [id number]) Special Tests Hip Special Tests Rosalba's Test Test Results both sides + Knee Special Tests Rosa Isela's Test Test Results + both sides Rosalba's Test Test Results positive Hughston Pica Test Test Results negative Varus- 0 Degrees Test Results negative Valgus- 25 Degrees Test Results negative Magdiel Test Test Results neg Patellar Grind Test Test Results positbe left side Freedom's Sign Test Results positive left knee Apley's Compression Test Results neg. on both sides PT-OP-M Strength Start: 12/24/17 17:35 Freq: Status: Active Protocol: Document 02/28/18 16:37 EA (Rec: 02/28/18 16:50 EA [id number]) Hip Strength Hip Manual Muscle Testing Right Flexion (L2) 5 Normal Extension (S1) 5 Normal Abduction 5 Normal Adduction 4+ Good+ External Rotation 5 Normal Internal Rotation 4+ Good+ Left Flexion (L2) 4 Good Extension (S1) 5 Normal Abduction 4+ Good+ Adduction 4+ Good+ External Rotation 4+ Good+ Internal Rotation 5 Normal Knee Strength Knee Manual Muscle Testing Right Flexion (S2) 5 Normal Extension (L3) 5 Normal Left Flexion (S2) 5 Normal Extension (L3) 4+ Good+ PT-OP-Q Treatments Start: 12/24/17 17:35 Freq: Status: Active Protocol: Document 04/22/18 15:23 EA (Rec: 04/22/18 16:01 EA [id number]) Cardio Equipment Recumbent Stepper (Sci-Fit) Duration (Minutes) 7 Resistance 3.0 Gym Equipment Cable Column (Body Solid) Hip Abduction Resistance 3-5 pltes Reps/Time x 12 reps x 3 sets Hip Adduction Resistance 3 plates Reps/Time 12 x 2 sets Leg Extension Resistance 3-4 Reps/Time x 12 reps x 3 Shuttle Recovery Bilateral Squats Details 0-90 deg Resistance 6 cords Reps/Time x 12reps x2 sets Unilateral Squats Details pain free range Resistance 4 bands Reps/Time x 12 reps x 2 Therapeutic Exercises Supine Exercises 2 Supine Exercise Name Hamstring and hip rotators stretch Reps/Minutes x 15SH x 2 reps 1 Supine Exercise Name IT band stretch Reps/Minutes x 15SH x 2 reps Prone Exercises 1 Prone Exercise Name Quads stretch Reps/Minutes x 15SH x 2 reps Standing Exercises 2 Standing Exercise Name // Bars steady lunges Reps/Minutes x 6 reps x 2 sets each Comments Partial 1 Standing Exercise Name 6 steps lunges Reps/Minutes x 10 reps x 2 sets Other Exercises 1 Other Exercise Name Wall squat Reps/Minutes x 10 reps x 2 sets Manual Therapy Treatment Joint Mobilizations 1 Joint Left PF jnt Direction Medial Grade II Body Position Supine PT-OP-R Modalities Start: 12/24/17 17:35 Freq: Status: Active Protocol: Document 04/22/18 16:01 EA (Rec: 04/22/18 16:01 EA [id number]) Electric Stimulation Electric Stimulation Interferential Current (IFC) Body Location quads Duration (Minutes) 15 Combined With Heat/Cold Hot Pack PT-OP-T Assessment and Plan Start: 12/24/17 17:35 Freq: Status: Active Protocol: Document 04/22/18 15:23 EA (Rec: 04/22/18 16:01 EA [id number]) Physical Therapy Assessment Assessment Summary Assessment Patient has improved strength and has less discomfort during exercises. Physical Therapy Plan Next Visit Focus/Plan Next Note Type Treatment Note Next Visit Plan add functional standing exercises
--- NOTE | 2018-04-24 16:27 | PT.OTRE ---
Current Diagnoses Unilateral primary osteoarthritis, left knee (04/24/18) Past Medical History (Last Reviewed 03/13/18 @ 12:14 by Sophie Forte LPN) Abnormal chest xray (Chronic ~2002) Acne (Chronic ~2004) Anemia (Chronic) Ankle pain (Chronic ~2012) Asthma (Chronic ~1997) Carpal tunnel syndrome (Chronic ~1996) Diabetes mellitus (Chronic) Eczema (Chronic ~1997) Edema (Chronic) Foot pain (Chronic ~2012) Fractures (Chronic ~1987) Gastric ulcer (Chronic) Headache (Chronic) Leg injury (Chronic ~2014) Sarcoidosis (Chronic ~2004) Shoulder pain (Chronic ~2001) Uterine cancer (Chronic) Vision disorder (Chronic) Surgical History (Last Reviewed 03/13/18 @ 12:14 by Sophie Frote LPN) Anesthesia (Resolved) History of carpal tunnel repair Status post biopsy Status post biopsy Status post colonoscopy Status post hemorrhoidectomy Status post hysterectomy Provider Visit Care Team Role Provider Type Wilian Booth MD Family Provider Physician Primary Care Provider Specialty: Family Practice Address: [address] [place] [address], [id number] Email: [email or web address] PA-C Attending Provider Non-Staff Specialty: Medical Address: [address] [place] [address], [phone] Email: Physical Therapy Re-Evaluation PT-OP-A Visit Information Start: 12/24/17 17:35 Freq: Status: Active Protocol: Document 04/24/18 15:24 EA (Rec: 04/24/18 16:00 EA [id number]) Out-Patient Physical Therapy Visit Information Visit Information Visit Type Treatment Note Visit Start Time 15:15 Visit Stop Time 16:00 Total Visit Minutes 40 Visit Number 13 PT-OP-B Current Condition Start: 12/24/17 17:35 Freq: Status: Active Protocol: Document 04/24/18 15:24 EA (Rec: 04/24/18 16:00 EA [id number]) Current Condition History of Current Condition Onset Date 05/2017 Current Complaints Left localized knee pain History of Current Condition Pt reports fell down on May 2017a nd slammed anterio knee to concrete floor ; states swelling noted and applied ice and rest after the injury. Patient seen her doctor after a week or two and underwent x-ray with no result of fracture. Patient stated knee pain and swelling subsided and kept coming back with increased wlaking and stair climbing. On august 2017, patient went to [facility] and seen specialist and recommended knee use of knee brace and standard cane. Patient stated that she also received pain medication after that visit and that help her to managed pain. Patient reports had a vacation few weeks ago which she a lot of wlaking and feels knee agrravates again. Prior Treatments and Tests Pain medication and use of Knee prace. Treatment Goals Patient/Caregiver Goals Patient wants to eliminate knee pain Prior Functional Status Baseline Function- ADL's Independent Baseline Function- Mobility Independent Current Functional Impairments (Reported) Functional Limitations- ADL's Indep with min difficulty PT-OP-C Subjective Start: 12/24/17 17:35 Freq: Status: Active Protocol: Document 04/24/18 15:24 EA (Rec: 04/24/18 16:00 EA [id number]) OP-PT Subjective Patient Comments Patient Comments Pt reports left knee is much better at this time; states right knee is bothering her in the past few days that she believes from doing plank exercises. Patient Reported Progress Improving Patient Questionnaires Lower Extremity Functional Scale LEFS Impairment 20 to 39% Impaired (Score 48- 62) OP-PT Pain Assessment Pain Assessment Grid Paper Pain Assessment Grid Completed Yes Home Pain Medication Use Pain Medications Used Yes Pain Behaviors Pain Behaviors Guarding Holding Area PT-OP-F Manual Assessment Start: 12/24/17 17:35 Freq: Status: Active Protocol: Document 04/24/18 15:24 EA (Rec: 04/24/18 16:00 EA [id number]) Manual Assessments Soft Tissue Assessment Soft Tissue Mobility Assessment Tight anterior thigh and calf muscles. Joint Mobility Assessment Joint Mobility Assessment Normal joint PT-OP-G Mobility & Gait Start: 12/24/17 17:35 Freq: Status: Active Protocol: Document 04/24/18 15:24 EA (Rec: 04/24/18 16:00 EA [id number]) OP Mobility Evaluation Bed Mobility Rolling indep Supine to and from Sit indep OP Gait Assessment Gait Able to Maintain Weight Bearing Status Yes During Gait Assistive Devices Assistive Device None Orthotic/Prosthetic Devices or Brace: No Gait Deviations General Gait Pattern Antalgic Factors Limiting Gait Function Factors Limiting Gait Function Decreased Strength Pain Comments Gait Comments slight antalgic gait due right knee pain. Stair Climbing Evaluation Evaluation Level of Assist On Stairs Independent Devices Stair Climbing Assistive Devices None Technique/Endurance Stair Climbing Direction Ascend and Descend Stair Climbing Technique Step Over Step Number of Steps Climbed 10 Comments Stair Climbing Comments Minimal difficulty at stair descent. PT-OP-J Posture/Palpation/Skin Start: 12/24/17 17:35 Freq: Status: Active Protocol: Document 04/24/18 15:24 EA (Rec: 04/24/18 16:00 EA [id number]) Posture Evaluation Position Standing Knee Posture (L) Genu Valgus (R) Genu Valgus Patellar Posture (L) Laterally Tilted (R) Laterally Tilted Ankle/Foot Posture (L) Pronated (R) Pronated Foot Arch (L) Low Arch (R) Low Arch Palpation Assessment Location One Palpation Location Quads, aand calf Palpation Findings Soft Tissue Tightness Tenderness Palpation Details Grade one tender along left quads and IT band PT-OP-K Range of Motion Start: 12/24/17 17:35 Freq: Status: Active Protocol: Document 04/24/18 15:24 EA (Rec: 04/24/18 16:00 EA [id number]) Knee Goniometric Range of Motion Knee Measured in Degrees Right Flexion Active (degrees) 125 Extension Active (degrees) 0 Left Flexion Active (degrees) 125 Extension Active (degrees) 0 PT-OP-L Special Tests Start: 12/24/17 17:35 Freq: Status: Active Protocol: Document 04/24/18 15:24 EA (Rec: 04/24/18 16:00 EA [id number]) Special Tests Hip Special Tests Rosalba's Test Test Results both sides + Knee Special Tests Rosa Isela's Test Test Results + both sides Rosalba's Test Test Results positive Hughston Pica Test Test Results negative Varus- 0 Degrees Test Results negative Valgus- 25 Degrees Test Results negative Magdiel Test Test Results neg Patellar Grind Test Test Results positbe left side Freedom's Sign Test Results positive left knee Apley's Compression Test Results neg. on both sides PT-OP-M Strength Start: 12/24/17 17:35 Freq: Status: Active Protocol: Document 04/24/18 15:24 EA (Rec: 04/24/18 16:00 EA [id number]) Hip Strength Hip Manual Muscle Testing Right Flexion (L2) 5 Normal Extension (S1) 5 Normal Abduction 5 Normal Adduction 4+ Good+ External Rotation 5 Normal Internal Rotation 4+ Good+ Left Flexion (L2) 4 Good Extension (S1) 5 Normal Abduction 4+ Good+ Adduction 4+ Good+ External Rotation 4+ Good+ Internal Rotation 5 Normal Knee Strength Knee Manual Muscle Testing Right Flexion (S2) 5 Normal Reason Not Measured Pain Comments Pain to right quads Left Flexion (S2) 5 Normal Extension (L3) 4+ Good+ PT-OP-Q Treatments Start: 12/24/17 17:35 Freq: Status: Active Protocol: Document 04/24/18 15:24 EA (Rec: 04/24/18 16:00 EA [id number]) Cardio Equipment Recumbent Stepper (Sci-Fit) Duration (Minutes) 7 Resistance 3.0 Gym Equipment Cable Column (Body Solid) Hip Abduction Resistance 3-5 pltes Reps/Time x 12 reps x 3 sets Hip Adduction Resistance 3 plates Reps/Time 12 x 2 sets Leg Extension Resistance 3-4 Reps/Time x 12 reps x 3 Shuttle Recovery Bilateral Squats Details 0-90 deg Resistance 6 cords Reps/Time x 12reps x2 sets Unilateral Squats Details pain free range. Left Resistance 4 bands Shuttle Recovery Platform Stable Reps/Time x 12 reps x 2 Therapeutic Exercises Supine Exercises 2 Supine Exercise Name Hamstring and hip rotators stretch Side bilateral Reps/Minutes x 15SH x 2 reps 1 Supine Exercise Name IT band stretch Side right Reps/Minutes x 15SH x 2 reps Prone Exercises 1 Prone Exercise Name Quads stretch Side bilateral Reps/Minutes x 15SH x 2 reps Standing Exercises 2 Standing Exercise Name // Bars steady lunges Side left Reps/Minutes x 6 reps x 2 sets each Comments Partial: right unable to tolerated due to distal quads pain 1 Standing Exercise Name 6 steps lunges Side left Reps/Minutes x 10 reps x 2 sets Other Exercises 1 Other Exercise Name Wall squat Reps/Minutes x 10 reps x 2 sets Manual Therapy Treatment Soft Tissue Mobilization 1 Body Location Distal quads, inner distal hamstring Mobilization Type Myofascial Release Sustained Pressure Intensity/Depth Moderate Body Position Sidelying/supine Joint Mobilizations 1 Joint Left PF jnt Direction Medial Grade II Body Position Supine PT-OP-R Modalities Start: 12/24/17 17:35 Freq: Status: Active Protocol: Document 04/24/18 15:24 EA (Rec: 04/24/18 16:00 EA [id number]) Electric Stimulation Electric Stimulation Interferential Current (IFC) Body Location quads Duration (Minutes) 15 Combined With Heat/Cold Hot Pack Ultrasound Therapy Treatment Right Distal Knee Treatment Duration (minutes) 5 Coupling Medium Ultrasound Gel Frequency Setting (mHz) 1 Mode Setting Continuous Intensity Setting (w/cm2) 1.0 PT-OP-T Assessment and Plan Start: 12/24/17 17:35 Freq: Status: Active Protocol: Document 04/24/18 15:24 EA (Rec: 04/24/18 16:00 EA [id number]) Physical Therapy Assessment Rehab Potential Rehabilitation Potential Good Evaluation Complexity Number of Personal Factors/Comorbidities 3 or More Number of Body Systems Impaired 3 Clinical Presentation at Evaluation Stable Impairments Impairments Activity Tolerance Pain ROM Soft Tissue Mobility Other Concerns Fall Risk no Age Related Concerns none Barriers to Rehabilitation Body weight and chronicity of the condition. Goals Five Impairment LEFS score of 26/80 Radar Signal Processing Engineer Goal (LTG) LEFS score of 60/80 LTG Duration 4 wks Four Impairment Left quads and hip weakness Mcfp Goal (LTG) Patient will exhibit 1/2 grade increase ms strength to left quads for improve stairs decsent and for functional weight bearing mobility. LTG Duration 4 wks improving Three Impairment Quads Mild tightness Radar Signal Processing Engineer Goal (LTG) Patient will exhibit full excursion to left quads for effective gait. LTG Duration 4 wks Improving Two Impairment Left knee HyperExt ROM Mcfp Goal (LTG) Patient will exhibit 0-10 knee hyperextension for gait push off LTG Duration Goal reached One Impairment Pain scale of 2/10 with activity Radar Signal Processing Engineer Goal (LTG) Patient with report 0/10 PS with activity LTG Duration 4 wks Progress Towards Goals Progress Towards Goals Progressing Toward Goals Assessment Summary Assessment Noted patient has improved functional strength and has less discomfort during exercises except with right lunges due to pain R distal quads. Patient will continue to progress and benefit with skilled PT to address left knee issue. Physical Therapy Plan Frequency and Duration Frequency of Treatment 1x/Week Plan of Care Start Date 04/24/18 Plan of Care End Date 06/12/18 Therapeutic Interventions Therapeutic Interventions Home Exercise Program Joint Mobilizations Manual Therapy Self-Care/Home Management Soft Tissue Mobilization Therapeutic Exercises Modalities Cold Pack/Ice Massage Electric Stimulation Hot Packs Ultrasound Other Referrals/Consults Referrals/Consults Recommended Right knee consult due to pain . Next Visit Focus/Plan Next Note Type Treatment Note Next Visit Plan add functional standing exercises
--- NOTE | 2018-04-24 16:27 | PT.OPPOC ---
Current Diagnoses Unilateral primary osteoarthritis, left knee (04/24/18) Provider Visit Care Team Role Provider Type Wilian Booth MD Family Provider Physician Primary Care Provider Specialty: Family Practice Address: [address] [place] [address], [id number] Email: [email or web address] Samantha Cruz PA-C Attending Provider Non-Staff Specialty: Medical Address: [address] [place] [address], [phone] Email: Plan Of Care PT-OP-T Assessment and Plan Start: 12/24/17 17:35 Freq: Status: Active Protocol: Document 04/24/18 15:24 EA (Rec: 04/24/18 16:00 EA [id number]) Physical Therapy Assessment Rehab Potential Rehabilitation Potential Good Evaluation Complexity Number of Personal Factors/Comorbidities 3 or More Number of Body Systems Impaired 3 Clinical Presentation at Evaluation Stable Impairments Impairments Activity Tolerance Pain ROM Soft Tissue Mobility Other Concerns Fall Risk no Age Related Concerns none Barriers to Rehabilitation Body weight and chronicity of the condition. Goals Five Impairment LEFS score of 26/80 Physical Therapy Manager Goal (LTG) LEFS score of 60/80 LTG Duration 4 wks Four Impairment Left quads and hip weakness Physical Therapy Manager Goal (LTG) Patient will exhibit 1/2 grade increase ms strength to left quads for improve stairs decsent and for functional weight bearing mobility. LTG Duration 4 wks improving Three Impairment Quads Mild tightness Physical Therapy Manager Goal (LTG) Patient will exhibit full excursion to left quads for effective gait. LTG Duration 4 wks Improving Two Impairment Left knee HyperExt ROM Physical Therapy Manager Goal (LTG) Patient will exhibit 0-10 knee hyperextension for gait push off LTG Duration Goal reached One Impairment Pain scale of 2/10 with activity Physical Therapy Manager Goal (LTG) Patient with report 0/10 PS with activity LTG Duration 4 wks Progress Towards Goals Progress Towards Goals Progressing Toward Goals Assessment Summary Assessment Noted patient has improved functional strength and has less discomfort during exercises except with right lunges due to pain R distal quads. Patient will continue to progress and benefit with skilled PT to address left knee issue. Physical Therapy Plan Frequency and Duration Frequency of Treatment 1x/Week Plan of Care Start Date 04/24/18 Plan of Care End Date 06/12/18 Therapeutic Interventions Therapeutic Interventions Home Exercise Program Joint Mobilizations Manual Therapy Self-Care/Home Management Soft Tissue Mobilization Therapeutic Exercises Modalities Cold Pack/Ice Massage Electric Stimulation Hot Packs Ultrasound Other Referrals/Consults Referrals/Consults Recommended Right knee consult due to pain . Next Visit Focus/Plan Next Note Type Treatment Note Next Visit Plan add functional standing exercises Plan of Care Dates Plan of Care Start Date 04/24/18 Plan of Care End Date 06/12/18 Please Sign and Return: I have reviewed this Plan of Care and certify that the skilled therapy services above are required to meet the patient?s needs. Physician Signature Date Printed Name and Credentials Clinical Instructor Signature Printed Name and Credentials
--- NOTE | 2018-05-01 16:28 | PT.OTN ---
Current Diagnoses Unilateral primary osteoarthritis, left knee (05/01/18) Pain in right knee (05/01/18) Physical Therapy Treatment Note PT-OP-A Visit Information Start: 12/24/17 17:35 Freq: Status: Active Protocol: Document 05/01/18 15:21 EA (Rec: 05/01/18 15:55 EA [id number]) Out-Patient Physical Therapy Visit Information Visit Information Visit Type Treatment Note Visit Start Time 15:15 Visit Stop Time 16:00 Total Visit Minutes 45 Visit Number 15 PT-OP-B Current Condition Start: 12/24/17 17:35 Freq: Status: Active Protocol: Document 04/24/18 15:24 EA (Rec: 04/24/18 16:00 EA [id number]) Current Condition History of Current Condition Onset Date 05/2017 Current Complaints Left localized knee pain History of Current Condition Pt reports fell down on May 2017a nd slammed anterio knee to concrete floor ; states swelling noted and applied ice and rest after the injury. Patient seen her doctor after a week or two and underwent x-ray with no result of fracture. Patient stated knee pain and swelling subsided and kept coming back with increased wlaking and stair climbing. On august 2017, patient [facility] and recommended knee use of knee brace and standard cane. Patient stated that she also received pain medication after that visit and that help her to managed pain. Patient reports had a vacation few weeks ago which she a lot of wlaking and feels knee agrravates again. Prior Treatments and Tests Pain medication and use of Knee prace. Treatment Goals Patient/Caregiver Goals Patient wants to eliminate knee pain Prior Functional Status Baseline Function- ADL's Independent Baseline Function- Mobility Independent Current Functional Impairments (Reported) Functional Limitations- ADL's Indep with min difficulty PT-OP-C Subjective Start: 12/24/17 17:35 Freq: Status: Active Protocol: Document 05/01/18 15:21 EA (Rec: 05/01/18 15:55 EA [id number]) OP-PT Subjective Patient Comments Patient Comments Pt reports both knees are getting improve at this time, however would like to get easy on exercises as her fibromyalgia is acting up. PT-OP-F Manual Assessment Start: 12/24/17 17:35 Freq: Status: Active Protocol: Document 04/24/18 15:24 EA (Rec: 04/24/18 16:00 EA [id number]) Manual Assessments Soft Tissue Assessment Soft Tissue Mobility Assessment Tight anterior thigh and calf muscles. Joint Mobility Assessment Joint Mobility Assessment Normal joint PT-OP-G Mobility & Gait Start: 12/24/17 17:35 Freq: Status: Active Protocol: Document 04/24/18 15:24 EA (Rec: 04/24/18 16:00 EA [id number]) OP Mobility Evaluation Bed Mobility Rolling indep Supine to and from Sit indep OP Gait Assessment Gait Able to Maintain Weight Bearing Status Yes During Gait Assistive Devices Assistive Device None Orthotic/Prosthetic Devices or Brace: No Gait Deviations General Gait Pattern Antalgic Factors Limiting Gait Function Factors Limiting Gait Function Decreased Strength Pain Comments Gait Comments slight antalgic gait due right knee pain. Stair Climbing Evaluation Evaluation Level of Assist On Stairs Independent Devices Stair Climbing Assistive Devices None Technique/Endurance Stair Climbing Direction Ascend and Descend Stair Climbing Technique Step Over Step Number of Steps Climbed 10 Comments Stair Climbing Comments Minimal difficulty at stair descent. PT-OP-J Posture/Palpation/Skin Start: 12/24/17 17:35 Freq: Status: Active Protocol: Document 04/24/18 15:24 EA (Rec: 04/24/18 16:00 EA [id number]) Posture Evaluation Position Standing Knee Posture (L) Genu Valgus (R) Genu Valgus Patellar Posture (L) Laterally Tilted (R) Laterally Tilted Ankle/Foot Posture (L) Pronated (R) Pronated Foot Arch (L) Low Arch (R) Low Arch Palpation Assessment Location One Palpation Location Quads, aand calf Palpation Findings Soft Tissue Tightness Tenderness Palpation Details Grade one tender along left quads and IT band PT-OP-K Range of Motion Start: 12/24/17 17:35 Freq: Status: Active Protocol: Document 04/24/18 15:24 EA (Rec: 04/24/18 16:00 EA [id number]) Knee Goniometric Range of Motion Knee Measured in Degrees Right Flexion Active (degrees) 125 Extension Active (degrees) 0 Left Flexion Active (degrees) 125 Extension Active (degrees) 0 PT-OP-L Special Tests Start: 12/24/17 17:35 Freq: Status: Active Protocol: Document 04/24/18 15:24 EA (Rec: 04/24/18 16:00 EA [id number]) Special Tests Hip Special Tests Rosalba's Test Test Results both sides + Knee Special Tests Rosa Isela's Test Test Results + both sides Rosalba's Test Test Results positive Hughston Pica Test Test Results negative Varus- 0 Degrees Test Results negative Valgus- 25 Degrees Test Results negative Magdiel Test Test Results neg Patellar Grind Test Test Results positbe left side Freedom's Sign Test Results positive left knee Apley's Compression Test Results neg. on both sides PT-OP-M Strength Start: 12/24/17 17:35 Freq: Status: Active Protocol: Document 04/24/18 15:24 EA (Rec: 04/24/18 16:00 EA [id number]) Hip Strength Hip Manual Muscle Testing Right Flexion (L2) 5 Normal Extension (S1) 5 Normal Abduction 5 Normal Adduction 4+ Good+ External Rotation 5 Normal Internal Rotation 4+ Good+ Left Flexion (L2) 4 Good Extension (S1) 5 Normal Abduction 4+ Good+ Adduction 4+ Good+ External Rotation 4+ Good+ Internal Rotation 5 Normal Knee Strength Knee Manual Muscle Testing Right Flexion (S2) 5 Normal Reason Not Measured Pain Comments Pain to right quads Left Flexion (S2) 5 Normal Extension (L3) 4+ Good+ PT-OP-Q Treatments Start: 12/24/17 17:35 Freq: Status: Active Protocol: Document 05/01/18 15:21 EA (Rec: 05/01/18 15:55 EA [id number]) Therapeutic Exercises Supine Exercises 2 Supine Exercise Name Hamstring and hip rotators stretch Side bilateral Reps/Minutes x 15SH x 2 reps 1 Supine Exercise Name IT band stretch Side right Reps/Minutes x 15SH x 2 reps Prone Exercises 1 Prone Exercise Name Quads stretch Side bilateral Reps/Minutes x 15SH x 2 reps Manual Therapy Treatment Soft Tissue Mobilization 1 Body Location Quads, ITband Mobilization Type Myofascial Release Sustained Pressure Intensity/Depth Moderate Body Position Sidelying/supine Comments rolling pin to IT band PT-OP-R Modalities Start: 12/24/17 17:35 Freq: Status: Active Protocol: Document 05/01/18 15:56 EA (Rec: 05/01/18 15:56 EA [id number]) Electric Stimulation Electric Stimulation Interferential Current (IFC) Body Location quads Duration (Minutes) 15 Combined With Heat/Cold Hot Pack PT-OP-T Assessment and Plan Start: 12/24/17 17:35 Freq: Status: Active Protocol: Document 05/01/18 15:21 EA (Rec: 05/01/18 15:55 EA [id number]) Physical Therapy Assessment Assessment Summary Assessment Pt tolerated treatment with mild discomfort during manual therapy to ITB. Physical Therapy Plan Next Visit Focus/Plan Next Note Type Treatment Note Next Visit Plan add standing functional exercises as able.
--- NOTE | 2018-05-13 17:18 | PT.OTN ---
Current Diagnoses Unilateral primary osteoarthritis, left knee (05/13/18) Pain in right knee (05/13/18) Physical Therapy Treatment Note PT-OP-A Visit Information Start: 12/24/17 17:35 Freq: Status: Active Protocol: Document 05/13/18 16:44 EA (Rec: 05/13/18 16:48 EA [id number]) Out-Patient Physical Therapy Visit Information Visit Information Visit Type Treatment Note Visit Start Time 15:15 Visit Stop Time 16:00 Total Visit Minutes 45 Visit Number 16 PT-OP-B Current Condition Start: 12/24/17 17:35 Freq: Status: Active Protocol: Document 04/24/18 15:24 EA (Rec: 04/24/18 16:00 EA [id number]) Current Condition History of Current Condition Onset Date 05/2017 Current Complaints Left localized knee pain History of Current Condition Pt reports fell down on May 2017a nd slammed anterio knee to concrete floor ; states swelling noted and applied ice and rest after the injury. Patient seen her doctor after a week or two and underwent x-ray with no result of fracture. Patient stated knee pain and swelling subsided and kept coming back with increased wlaking and stair climbing. On august 2017, patient went [facility] and [facility] specialist and recommended knee use of knee brace and standard cane. Patient stated that she also received pain medication after that visit and that help her to managed pain. Patient reports had a vacation few weeks ago which she a lot of wlaking and feels knee agrravates again. Prior Treatments and Tests Pain medication and use of Knee prace. Treatment Goals Patient/Caregiver Goals Patient wants to eliminate knee pain Prior Functional Status Baseline Function- ADL's Independent Baseline Function- Mobility Independent Current Functional Impairments (Reported) Functional Limitations- ADL's Indep with min difficulty PT-OP-C Subjective Start: 12/24/17 17:35 Freq: Status: Active Protocol: Document 05/13/18 16:44 EA (Rec: 05/13/18 16:48 EA [id number]) OP-PT Subjective Patient Comments Patient Comments Pt reports both knees are much improve at this time; states right elbow is bothering her in the past few weeks. Patient Reported Progress Improving PT-OP-F Manual Assessment Start: 12/24/17 17:35 Freq: Status: Active Protocol: Document 04/24/18 15:24 EA (Rec: 04/24/18 16:00 EA [id number]) Manual Assessments Soft Tissue Assessment Soft Tissue Mobility Assessment Tight anterior thigh and calf muscles. Joint Mobility Assessment Joint Mobility Assessment Normal joint PT-OP-G Mobility & Gait Start: 12/24/17 17:35 Freq: Status: Active Protocol: Document 04/24/18 15:24 EA (Rec: 04/24/18 16:00 EA [id number]) OP Mobility Evaluation Bed Mobility Rolling indep Supine to and from Sit indep OP Gait Assessment Gait Able to Maintain Weight Bearing Status Yes During Gait Assistive Devices Assistive Device None Orthotic/Prosthetic Devices or Brace: No Gait Deviations General Gait Pattern Antalgic Factors Limiting Gait Function Factors Limiting Gait Function Decreased Strength Pain Comments Gait Comments slight antalgic gait due right knee pain. Stair Climbing Evaluation Evaluation Level of Assist On Stairs Independent Devices Stair Climbing Assistive Devices None Technique/Endurance Stair Climbing Direction Ascend and Descend Stair Climbing Technique Step Over Step Number of Steps Climbed 10 Comments Stair Climbing Comments Minimal difficulty at stair descent. PT-OP-J Posture/Palpation/Skin Start: 12/24/17 17:35 Freq: Status: Active Protocol: Document 04/24/18 15:24 EA (Rec: 04/24/18 16:00 EA [id number]) Posture Evaluation Position Standing Knee Posture (L) Genu Valgus (R) Genu Valgus Patellar Posture (L) Laterally Tilted (R) Laterally Tilted Ankle/Foot Posture (L) Pronated (R) Pronated Foot Arch (L) Low Arch (R) Low Arch Palpation Assessment Location One Palpation Location Quads, aand calf Palpation Findings Soft Tissue Tightness Tenderness Palpation Details Grade one tender along left quads and IT band PT-OP-K Range of Motion Start: 12/24/17 17:35 Freq: Status: Active Protocol: Document 04/24/18 15:24 EA (Rec: 04/24/18 16:00 EA [id number]) Knee Goniometric Range of Motion Knee Measured in Degrees Right Flexion Active (degrees) 125 Extension Active (degrees) 0 Left Flexion Active (degrees) 125 Extension Active (degrees) 0 PT-OP-L Special Tests Start: 12/24/17 17:35 Freq: Status: Active Protocol: Document 04/24/18 15:24 EA (Rec: 04/24/18 16:00 EA [id number]) Special Tests Hip Special Tests Rosalba's Test Test Results both sides + Knee Special Tests Rosa Isela's Test Test Results + both sides Rosalba's Test Test Results positive Hughston Pica Test Test Results negative Varus- 0 Degrees Test Results negative Valgus- 25 Degrees Test Results negative Magdiel Test Test Results neg Patellar Grind Test Test Results positbe left side Freedom's Sign Test Results positive left knee Apley's Compression Test Results neg. on both sides PT-OP-M Strength Start: 12/24/17 17:35 Freq: Status: Active Protocol: Document 04/24/18 15:24 EA (Rec: 04/24/18 16:00 EA [id number]) Hip Strength Hip Manual Muscle Testing Right Flexion (L2) 5 Normal Extension (S1) 5 Normal Abduction 5 Normal Adduction 4+ Good+ External Rotation 5 Normal Internal Rotation 4+ Good+ Left Flexion (L2) 4 Good Extension (S1) 5 Normal Abduction 4+ Good+ Adduction 4+ Good+ External Rotation 4+ Good+ Internal Rotation 5 Normal Knee Strength Knee Manual Muscle Testing Right Flexion (S2) 5 Normal Reason Not Measured Pain Comments Pain to right quads Left Flexion (S2) 5 Normal Extension (L3) 4+ Good+ PT-OP-Q Treatments Start: 12/24/17 17:35 Freq: Status: Active Protocol: Document 05/13/18 16:44 EA (Rec: 05/13/18 16:48 EA [id number]) Cardio Equipment Recumbent Stepper (Sci-Fit) Duration (Minutes) 7 Resistance 3.0 Gym Equipment Cable Column (Body Solid) Leg Extension Resistance 3-5 Reps/Time x 12 reps x 3 Shuttle Recovery Bilateral Squats Details 0-90 deg Resistance 6 cords Reps/Time x 12reps x2 sets Unilateral Squats Details pain free range. Left Resistance 4 bands Shuttle Recovery Platform Stable Reps/Time x 12 reps x 2 Therapeutic Exercises Supine Exercises 2 Supine Exercise Name Hamstring and hip rotators stretch Side bilateral Reps/Minutes x 15SH x 2 reps 1 Supine Exercise Name IT band stretch Side right Reps/Minutes x 15SH x 2 reps Prone Exercises 1 Prone Exercise Name Quads stretch Side bilateral Reps/Minutes x 15SH x 2 reps Standing Exercises 2 Standing Exercise Name // Bars steady lunges Side left Reps/Minutes x 6 reps x 2 sets each Comments Partial: right unable to tolerated due to distal quads pain 1 Standing Exercise Name 6 steps lunges Side left Reps/Minutes x 10 reps x 2 sets Other Exercises 1 Other Exercise Name side step squat Reps/Minutes x 10 reps x 2 sets PT-OP-R Modalities Start: 12/24/17 17:35 Freq: Status: Active Protocol: Document 05/13/18 16:44 EA (Rec: 05/13/18 16:48 EA [id number]) Electric Stimulation Electric Stimulation Interferential Current (IFC) Body Location quads Duration (Minutes) 15 Combined With Heat/Cold Hot Pack PT-OP-T Assessment and Plan Start: 12/24/17 17:35 Freq: Status: Active Protocol: Document 05/13/18 16:44 EA (Rec: 05/13/18 16:48 EA [id number]) Physical Therapy Assessment Assessment Summary Assessment Patient had improved mobility with no signs of discomfort. Patient continue to progress. Advance as tolerated Physical Therapy Plan Next Visit Focus/Plan Next Note Type Treatment Note Next Visit Plan add standing functional exercises as able.
--- NOTE | 2018-05-16 17:23 | PT.OTN ---
Current Diagnoses Unilateral primary osteoarthritis, left knee (05/16/18) Pain in right knee (05/16/18) Physical Therapy Treatment Note PT-OP-A Visit Information Start: 12/24/17 17:35 Freq: Status: Active Protocol: Document 05/16/18 16:10 EA (Rec: 05/16/18 16:51 EA [id number]) Out-Patient Physical Therapy Visit Information Visit Information Visit Type Treatment Note Visit Start Time 15:15 Visit Stop Time 16:00 Total Visit Minutes 40 Visit Number 17 PT-OP-B Current Condition Start: 12/24/17 17:35 Freq: Status: Active Protocol: Document 04/24/18 15:24 EA (Rec: 04/24/18 16:00 EA [id number]) Current Condition History of Current Condition Onset Date 05/2017 Current Complaints Left localized knee pain History of Current Condition Pt reports fell down on May 2017a nd slammed anterio knee to concrete floor ; states swelling noted and applied ice and rest after the injury. Patient seen her doctor after a week or two and underwent x-ray with no result of fracture. Patient stated knee pain and swelling subsided and kept coming back with increased wlaking and stair climbing. On august 2017, patient went [facility] and [facility] specialist and recommended knee use of knee brace and standard cane. Patient stated that she also received pain medication after that visit and that help her to managed pain. Patient reports had a vacation few weeks ago which she a lot of wlaking and feels knee agrravates again. Prior Treatments and Tests Pain medication and use of Knee prace. Treatment Goals Patient/Caregiver Goals Patient wants to eliminate knee pain Prior Functional Status Baseline Function- ADL's Independent Baseline Function- Mobility Independent Current Functional Impairments (Reported) Functional Limitations- ADL's Indep with min difficulty PT-OP-C Subjective Start: 12/24/17 17:35 Freq: Status: Active Protocol: Document 05/16/18 16:10 EA (Rec: 05/16/18 16:51 EA [id number]) OP-PT Subjective Patient Comments Patient Comments Pt reports feeling much better at this time; states knees pain is now much less and rated 1/10. Patient Reported Progress Improving PT-OP-F Manual Assessment Start: 12/24/17 17:35 Freq: Status: Active Protocol: Document 04/24/18 15:24 EA (Rec: 04/24/18 16:00 EA [id number]) Manual Assessments Soft Tissue Assessment Soft Tissue Mobility Assessment Tight anterior thigh and calf muscles. Joint Mobility Assessment Joint Mobility Assessment Normal joint PT-OP-G Mobility & Gait Start: 12/24/17 17:35 Freq: Status: Active Protocol: Document 04/24/18 15:24 EA (Rec: 04/24/18 16:00 EA [id number]) OP Mobility Evaluation Bed Mobility Rolling indep Supine to and from Sit indep OP Gait Assessment Gait Able to Maintain Weight Bearing Status Yes During Gait Assistive Devices Assistive Device None Orthotic/Prosthetic Devices or Brace: No Gait Deviations General Gait Pattern Antalgic Factors Limiting Gait Function Factors Limiting Gait Function Decreased Strength Pain Comments Gait Comments slight antalgic gait due right knee pain. Stair Climbing Evaluation Evaluation Level of Assist On Stairs Independent Devices Stair Climbing Assistive Devices None Technique/Endurance Stair Climbing Direction Ascend and Descend Stair Climbing Technique Step Over Step Number of Steps Climbed 10 Comments Stair Climbing Comments Minimal difficulty at stair descent. PT-OP-J Posture/Palpation/Skin Start: 12/24/17 17:35 Freq: Status: Active Protocol: Document 04/24/18 15:24 EA (Rec: 04/24/18 16:00 EA [id number]) Posture Evaluation Position Standing Knee Posture (L) Genu Valgus (R) Genu Valgus Patellar Posture (L) Laterally Tilted (R) Laterally Tilted Ankle/Foot Posture (L) Pronated (R) Pronated Foot Arch (L) Low Arch (R) Low Arch Palpation Assessment Location One Palpation Location Quads, aand calf Palpation Findings Soft Tissue Tightness Tenderness Palpation Details Grade one tender along left quads and IT band PT-OP-K Range of Motion Start: 12/24/17 17:35 Freq: Status: Active Protocol: Document 04/24/18 15:24 EA (Rec: 04/24/18 16:00 EA [id number]) Knee Goniometric Range of Motion Knee Measured in Degrees Right Flexion Active (degrees) 125 Extension Active (degrees) 0 Left Flexion Active (degrees) 125 Extension Active (degrees) 0 PT-OP-L Special Tests Start: 12/24/17 17:35 Freq: Status: Active Protocol: Document 04/24/18 15:24 EA (Rec: 04/24/18 16:00 EA [id number]) Special Tests Hip Special Tests Rosalba's Test Test Results both sides + Knee Special Tests Rosa Isela's Test Test Results + both sides Rosalba's Test Test Results positive Hughston Pica Test Test Results negative Varus- 0 Degrees Test Results negative Valgus- 25 Degrees Test Results negative Magdiel Test Test Results neg Patellar Grind Test Test Results positbe left side Freedom's Sign Test Results positive left knee Apley's Compression Test Results neg. on both sides PT-OP-M Strength Start: 12/24/17 17:35 Freq: Status: Active Protocol: Document 04/24/18 15:24 EA (Rec: 04/24/18 16:00 EA [id number]) Hip Strength Hip Manual Muscle Testing Right Flexion (L2) 5 Normal Extension (S1) 5 Normal Abduction 5 Normal Adduction 4+ Good+ External Rotation 5 Normal Internal Rotation 4+ Good+ Left Flexion (L2) 4 Good Extension (S1) 5 Normal Abduction 4+ Good+ Adduction 4+ Good+ External Rotation 4+ Good+ Internal Rotation 5 Normal Knee Strength Knee Manual Muscle Testing Right Flexion (S2) 5 Normal Reason Not Measured Pain Comments Pain to right quads Left Flexion (S2) 5 Normal Extension (L3) 4+ Good+ PT-OP-Q Treatments Start: 12/24/17 17:35 Freq: Status: Active Protocol: Document 05/16/18 16:10 EA (Rec: 05/16/18 16:51 EA [id number]) Gym Equipment Cable Column (Body Solid) Leg Extension Resistance 3-5 Reps/Time x 12 reps x 3 Shuttle Recovery Bilateral Squats Details 0-90 deg Resistance 6 cords Reps/Time x 12reps x2 sets Unilateral Squats Details pain free range. Left Resistance 4 bands Shuttle Recovery Platform Stable Reps/Time x 12 reps x 2 Therapeutic Exercises Supine Exercises 2 Supine Exercise Name Hamstring and hip rotators stretch Side bilateral Reps/Minutes x 15SH x 2 reps 1 Supine Exercise Name IT band stretch Side right Reps/Minutes x 15SH x 2 reps Prone Exercises 1 Prone Exercise Name Quads stretch Side bilateral Reps/Minutes x 15SH x 2 reps Standing Exercises 1 Standing Exercise Name 6 steps lunges Side bilateral Reps/Minutes x 10 reps x 2 sets Other Exercises 1 Other Exercise Name side step squat Reps/Minutes x 10 reps x 2 sets PT-OP-R Modalities Start: 12/24/17 17:35 Freq: Status: Active Protocol: Document 05/16/18 16:10 EA (Rec: 05/16/18 16:51 EA [id number]) Hot Pack/Cold Pack Treatment Hot Pack Location both knees Patient Position Hooklying Treatment Duration (minutes) 15 Patient Tolerance Good PT-OP-T Assessment and Plan Start: 12/24/17 17:35 Freq: Status: Active Protocol: Document 05/16/18 16:10 EA (Rec: 05/16/18 16:51 EA [id number]) Physical Therapy Assessment Assessment Summary Assessment No discomfort noted. Patient is progressing well. discussed possible discharge next session. Physical Therapy Plan Next Visit Focus/Plan Next Note Type Treatment Note Next Visit Plan HEP: review and provide copy.
--- NOTE | 2018-05-23 17:44 | PT.OTN ---
Current Diagnoses Unilateral primary osteoarthritis, left knee (05/23/18) Pain in right knee (05/23/18) Physical Therapy Treatment Note PT-OP-A Visit Information Start: 12/24/17 17:35 Freq: Status: Active Protocol: Document 05/23/18 16:04 EA (Rec: 05/23/18 16:39 EA [id number]) Out-Patient Physical Therapy Visit Information Visit Information Visit Type Treatment Note Visit Start Time 15:15 Visit Stop Time 16:00 Total Visit Minutes 40 Visit Number 18 PT-OP-B Current Condition Start: 12/24/17 17:35 Freq: Status: Active Protocol: Document 04/24/18 15:24 EA (Rec: 04/24/18 16:00 EA [id number]) Current Condition History of Current Condition Onset Date 05/2017 Current Complaints Left localized knee pain History of Current Condition Pt reports fell down on May 2017a nd slammed anterio knee to concrete floor ; states swelling noted and applied ice and rest after the injury. Patient seen her doctor after a week or two and underwent x-ray with no result of fracture. Patient stated knee pain and swelling subsided and kept coming back with increased wlaking and stair climbing. On august 2017, patient [facility] and recommended knee use of knee brace and standard cane. Patient stated that she also received pain medication after that visit and that help her to managed pain. Patient reports had a vacation few weeks ago which she a lot of wlaking and feels knee agrravates again. Prior Treatments and Tests Pain medication and use of Knee prace. Treatment Goals Patient/Caregiver Goals Patient wants to eliminate knee pain Prior Functional Status Baseline Function- ADL's Independent Baseline Function- Mobility Independent Current Functional Impairments (Reported) Functional Limitations- ADL's Indep with min difficulty PT-OP-C Subjective Start: 12/24/17 17:35 Freq: Status: Active Protocol: Document 05/23/18 16:04 EA (Rec: 05/23/18 16:39 EA [id number]) OP-PT Subjective Patient Comments Patient Comments Pt reports that she has been walking a lot lately; states knee pain occurs mostly. PT-OP-F Manual Assessment Start: 12/24/17 17:35 Freq: Status: Active Protocol: Document 04/24/18 15:24 EA (Rec: 04/24/18 16:00 EA [id number]) Manual Assessments Soft Tissue Assessment Soft Tissue Mobility Assessment Tight anterior thigh and calf muscles. Joint Mobility Assessment Joint Mobility Assessment Normal joint PT-OP-G Mobility & Gait Start: 12/24/17 17:35 Freq: Status: Active Protocol: Document 04/24/18 15:24 EA (Rec: 04/24/18 16:00 EA [id number]) OP Mobility Evaluation Bed Mobility Rolling indep Supine to and from Sit indep OP Gait Assessment Gait Able to Maintain Weight Bearing Status Yes During Gait Assistive Devices Assistive Device None Orthotic/Prosthetic Devices or Brace: No Gait Deviations General Gait Pattern Antalgic Factors Limiting Gait Function Factors Limiting Gait Function Decreased Strength Pain Comments Gait Comments slight antalgic gait due right knee pain. Stair Climbing Evaluation Evaluation Level of Assist On Stairs Independent Devices Stair Climbing Assistive Devices None Technique/Endurance Stair Climbing Direction Ascend and Descend Stair Climbing Technique Step Over Step Number of Steps Climbed 10 Comments Stair Climbing Comments Minimal difficulty at stair descent. PT-OP-J Posture/Palpation/Skin Start: 12/24/17 17:35 Freq: Status: Active Protocol: Document 04/24/18 15:24 EA (Rec: 04/24/18 16:00 EA [id number]) Posture Evaluation Position Standing Knee Posture (L) Genu Valgus (R) Genu Valgus Patellar Posture (L) Laterally Tilted (R) Laterally Tilted Ankle/Foot Posture (L) Pronated (R) Pronated Foot Arch (L) Low Arch (R) Low Arch Palpation Assessment Location One Palpation Location Quads, aand calf Palpation Findings Soft Tissue Tightness Tenderness Palpation Details Grade one tender along left quads and IT band PT-OP-K Range of Motion Start: 12/24/17 17:35 Freq: Status: Active Protocol: Document 04/24/18 15:24 EA (Rec: 04/24/18 16:00 EA [id number]) Knee Goniometric Range of Motion Knee Measured in Degrees Right Flexion Active (degrees) 125 Extension Active (degrees) 0 Left Flexion Active (degrees) 125 Extension Active (degrees) 0 PT-OP-L Special Tests Start: 12/24/17 17:35 Freq: Status: Active Protocol: Document 04/24/18 15:24 EA (Rec: 04/24/18 16:00 EA [id number]) Special Tests Hip Special Tests Rosalba's Test Test Results both sides + Knee Special Tests Rosa Isela's Test Test Results + both sides Rosalba's Test Test Results positive Hughston Pica Test Test Results negative Varus- 0 Degrees Test Results negative Valgus- 25 Degrees Test Results negative Magdiel Test Test Results neg Patellar Grind Test Test Results positbe left side Freedom's Sign Test Results positive left knee Apley's Compression Test Results neg. on both sides PT-OP-M Strength Start: 12/24/17 17:35 Freq: Status: Active Protocol: Document 04/24/18 15:24 EA (Rec: 04/24/18 16:00 EA [id number]) Hip Strength Hip Manual Muscle Testing Right Flexion (L2) 5 Normal Extension (S1) 5 Normal Abduction 5 Normal Adduction 4+ Good+ External Rotation 5 Normal Internal Rotation 4+ Good+ Left Flexion (L2) 4 Good Extension (S1) 5 Normal Abduction 4+ Good+ Adduction 4+ Good+ External Rotation 4+ Good+ Internal Rotation 5 Normal Knee Strength Knee Manual Muscle Testing Right Flexion (S2) 5 Normal Reason Not Measured Pain Comments Pain to right quads Left Flexion (S2) 5 Normal Extension (L3) 4+ Good+ PT-OP-Q Treatments Start: 12/24/17 17:35 Freq: Status: Active Protocol: Document 05/23/18 16:04 EA (Rec: 05/23/18 16:39 EA [id number]) Cardio Equipment Recumbent Stepper (Sci-Fit) Duration (Minutes) 7 Resistance 3.0 Gym Equipment Shuttle Recovery Bilateral Squats Details 0-90 deg Resistance 6 cords Reps/Time x 12reps x2 sets Unilateral Squats Details pain free range. Left Resistance 4 bands Shuttle Recovery Platform Stable Reps/Time x 12 reps x 2 Therapeutic Exercises Supine Exercises 2 Supine Exercise Name Hamstring and hip rotators stretch Side bilateral Reps/Minutes x 15SH x 2 reps 1 Supine Exercise Name IT band stretch Side right Reps/Minutes x 15SH x 2 reps Prone Exercises 1 Prone Exercise Name Quads stretch Side bilateral Reps/Minutes x 15SH x 2 reps Standing Exercises 1 Standing Exercise Name 6 steps lunges Side bilateral Reps/Minutes x 10 reps x 2 sets Other Exercises 1 Other Exercise Name side step squat Resistance YTB Reps/Minutes x 2 10 ft lines PT-OP-R Modalities Start: 12/24/17 17:35 Freq: Status: Active Protocol: Document 05/23/18 16:04 EA (Rec: 05/23/18 16:39 EA [id number]) Hot Pack/Cold Pack Treatment Hot Pack Location both knees Patient Position Hooklying Treatment Duration (minutes) 15 Patient Tolerance Good PT-OP-T Assessment and Plan Start: 12/24/17 17:35 Freq: Status: Active Protocol: Document 05/23/18 16:04 EA (Rec: 05/23/18 16:39 EA [id number]) Physical Therapy Assessment Assessment Summary Assessment No discomfort noted during functional exercises except with leg extension. Patient recommends to see her physician if any other hip or foot pain exist that is beyond from original pain.
--- NOTE | 2018-05-30 17:30 | PT.OTN ---
Current Diagnoses Unilateral primary osteoarthritis, left knee (05/30/18) Pain in right knee (05/30/18) Physical Therapy Treatment Note PT-OP-A Visit Information Start: 12/24/17 17:35 Freq: Status: Active Protocol: Document 05/30/18 16:40 EA (Rec: 05/30/18 16:48 EA [id number]) Out-Patient Physical Therapy Visit Information Visit Information Visit Type Treatment Note Visit Start Time 15:15 Visit Stop Time 16:00 Total Visit Minutes 40 Visit Number 18 PT-OP-B Current Condition Start: 12/24/17 17:35 Freq: Status: Active Protocol: Document 04/24/18 15:24 EA (Rec: 04/24/18 16:00 EA [id number]) Current Condition History of Current Condition Onset Date 05/2017 Current Complaints Left localized knee pain History of Current Condition Pt reports fell down on May 2017a nd slammed anterio knee to concrete floor ; states swelling noted and applied ice and rest after the injury. Patient seen her doctor after a week or two and underwent x-ray with no result of fracture. Patient stated knee pain and swelling subsided and kept coming back with increased wlaking and stair climbing. On august 2017, patient went [facility] and seen specialist and recommended knee use of knee brace and standard cane. Patient stated that she also received pain medication after that visit and that help her to managed pain. Patient reports had a vacation few weeks ago which she a lot of wlaking and feels knee agrravates again. Prior Treatments and Tests Pain medication and use of Knee prace. Treatment Goals Patient/Caregiver Goals Patient wants to eliminate knee pain Prior Functional Status Baseline Function- ADL's Independent Baseline Function- Mobility Independent Current Functional Impairments (Reported) Functional Limitations- ADL's Indep with min difficulty PT-OP-C Subjective Start: 12/24/17 17:35 Freq: Status: Active Protocol: Document 05/30/18 16:40 EA (Rec: 05/30/18 16:48 EA [id number]) OP-PT Subjective Patient Comments Patient Comments Pt reports had physician consults yesterday and recommends to see culinary intern at [facility]; patient reports she would like to discharge after this visit as she feels full recovery won't happen due to possible RA diagnosis. Pt states both knees still hurts but not as much a month ago; states she will comply to all HEP. Patient Reported Progress Improving PT-OP-F Manual Assessment Start: 12/24/17 17:35 Freq: Status: Active Protocol: Document 04/24/18 15:24 EA (Rec: 04/24/18 16:00 EA [id number]) Manual Assessments Soft Tissue Assessment Soft Tissue Mobility Assessment Tight anterior thigh and calf muscles. Joint Mobility Assessment Joint Mobility Assessment Normal joint PT-OP-G Mobility & Gait Start: 12/24/17 17:35 Freq: Status: Active Protocol: Document 04/24/18 15:24 EA (Rec: 04/24/18 16:00 EA [id number]) OP Mobility Evaluation Bed Mobility Rolling indep Supine to and from Sit indep OP Gait Assessment Gait Able to Maintain Weight Bearing Status Yes During Gait Assistive Devices Assistive Device None Orthotic/Prosthetic Devices or Brace: No Gait Deviations General Gait Pattern Antalgic Factors Limiting Gait Function Factors Limiting Gait Function Decreased Strength Pain Comments Gait Comments slight antalgic gait due right knee pain. Stair Climbing Evaluation Evaluation Level of Assist On Stairs Independent Devices Stair Climbing Assistive Devices None Technique/Endurance Stair Climbing Direction Ascend and Descend Stair Climbing Technique Step Over Step Number of Steps Climbed 10 Comments Stair Climbing Comments Minimal difficulty at stair descent. PT-OP-J Posture/Palpation/Skin Start: 12/24/17 17:35 Freq: Status: Active Protocol: Document 04/24/18 15:24 EA (Rec: 04/24/18 16:00 EA [id number]) Posture Evaluation Position Standing Knee Posture (L) Genu Valgus (R) Genu Valgus Patellar Posture (L) Laterally Tilted (R) Laterally Tilted Ankle/Foot Posture (L) Pronated (R) Pronated Foot Arch (L) Low Arch (R) Low Arch Palpation Assessment Location One Palpation Location Quads, aand calf Palpation Findings Soft Tissue Tightness Tenderness Palpation Details Grade one tender along left quads and IT band PT-OP-K Range of Motion Start: 12/24/17 17:35 Freq: Status: Active Protocol: Document 04/24/18 15:24 EA (Rec: 04/24/18 16:00 EA [id number]) Knee Goniometric Range of Motion Knee Measured in Degrees Right Flexion Active (degrees) 125 Extension Active (degrees) 0 Left Flexion Active (degrees) 125 Extension Active (degrees) 0 PT-OP-L Special Tests Start: 12/24/17 17:35 Freq: Status: Active Protocol: Document 04/24/18 15:24 EA (Rec: 04/24/18 16:00 EA [id number]) Special Tests Hip Special Tests Rosalba's Test Test Results both sides + Knee Special Tests Rosa Isela's Test Test Results + both sides Rosalba's Test Test Results positive Hughston Pica Test Test Results negative Varus- 0 Degrees Test Results negative Valgus- 25 Degrees Test Results negative Magdiel Test Test Results neg Patellar Grind Test Test Results positbe left side Freedom's Sign Test Results positive left knee Apley's Compression Test Results neg. on both sides PT-OP-M Strength Start: 12/24/17 17:35 Freq: Status: Active Protocol: Document 04/24/18 15:24 EA (Rec: 04/24/18 16:00 EA [id number]) Hip Strength Hip Manual Muscle Testing Right Flexion (L2) 5 Normal Extension (S1) 5 Normal Abduction 5 Normal Adduction 4+ Good+ External Rotation 5 Normal Internal Rotation 4+ Good+ Left Flexion (L2) 4 Good Extension (S1) 5 Normal Abduction 4+ Good+ Adduction 4+ Good+ External Rotation 4+ Good+ Internal Rotation 5 Normal Knee Strength Knee Manual Muscle Testing Right Flexion (S2) 5 Normal Reason Not Measured Pain Comments Pain to right quads Left Flexion (S2) 5 Normal Extension (L3) 4+ Good+ PT-OP-Q Treatments Start: 12/24/17 17:35 Freq: Status: Active Protocol: Document 05/30/18 16:40 EA (Rec: 05/30/18 16:48 EA [id number]) Cardio Equipment Recumbent Stepper (Sci-Fit) Duration (Minutes) 7 Resistance 3.0 Gym Equipment Cable Column (Body Solid) Leg Extension Resistance 3-5 Reps/Time x 12 reps x 3 Shuttle Recovery Bilateral Squats Details 0-90 deg Resistance 6 cords Reps/Time x 12reps x2 sets Unilateral Squats Details pain free range. Left Resistance 5 bands Shuttle Recovery Platform Stable Reps/Time x 12 reps x 2 Therapeutic Exercises Supine Exercises 2 Supine Exercise Name Hamstring and hip rotators stretch Side bilateral Reps/Minutes x 15SH x 2 reps Comments HEP component 1 Supine Exercise Name IT band stretch Side right Reps/Minutes x 15SH x 2 reps Comments HEP component Prone Exercises 1 Prone Exercise Name Quads stretch Side bilateral Reps/Minutes x 15SH x 2 reps Comments home component Standing Exercises 1 Standing Exercise Name 6 steps lunges Side bilateral Reps/Minutes x 10 reps x 2 sets Other Exercises 1 Other Exercise Name side step squat Resistance YTB Reps/Minutes x 2 10 ft lines PT-OP-R Modalities Start: 12/24/17 17:35 Freq: Status: Active Protocol: Document 05/30/18 16:40 EA (Rec: 05/30/18 16:48 EA [id number]) Electric Stimulation Electric Stimulation Interferential Current (IFC) Body Location quads Duration (Minutes) 15 Combined With Heat/Cold Hot Pack PT-OP-T Assessment and Plan Start: 12/24/17 17:35 Freq: Status: Active Protocol: Document 05/30/18 16:40 EA (Rec: 05/30/18 16:48 EA [id number]) Physical Therapy Assessment Assessment Summary Assessment Pt tolerated therapeutic exercises with no discomfort noted. Patient executed exercises with good form. Patient is good to discharge to PT at this time. Physical Therapy Plan Discharge Physical Therapy Discharge Reasons Patient Request Discharge Comments Plateau progress. Other medical issues.
--- NOTE | 2018-05-30 17:40 | PT.OPDS ---
Current Diagnoses Unilateral primary osteoarthritis, left knee (05/30/18) Pain in right knee (05/30/18) Provider Visit Care Team Role Provider Type Wilian Booth MD Family Provider Physician Primary Care Provider Specialty: Family Practice Address: [address] [place] [address], [id number] Email: [email or web address] Samantha Cruz PA-C Attending Provider Non-Staff Specialty: Medical Address: [address] [place] [address], [phone] Email: Visit Number Visit Number 18 Discharge Summary PT-OP-B Current Condition Start: 12/24/17 17:35 Freq: Status: Active Protocol: Document 04/24/18 15:24 EA (Rec: 04/24/18 16:00 EA [id number]) Current Condition History of Current Condition Onset Date 05/2017 Current Complaints Left localized knee pain History of Current Condition Pt reports fell down on May 2017a nd slammed anterio knee to concrete floor ; states swelling noted and applied ice and rest after the injury. Patient seen her doctor after a week or two and underwent x-ray with no result of fracture. Patient stated knee pain and swelling subsided and kept coming back with increased wlaking and stair climbing. On august 2017, patient [facility] and [facility] specialist and recommended knee use of knee brace and standard cane. Patient stated that she also received pain medication after that visit and that help her to managed pain. Patient reports had a vacation few weeks ago which she a lot of wlaking and feels knee agrravates again. Prior Treatments and Tests Pain medication and use of Knee prace. 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 Pt states both knees still hurts but not as much a month ago; states she will comply to all HEP. Patient Reported Progress Improving PT-OP-F Manual Assessment Start: 12/24/17 17:35 Freq: Status: Active Protocol: Document 04/24/18 15:24 EA (Rec: 04/24/18 16:00 EA [id number]) Manual Assessments Soft Tissue Assessment Soft Tissue Mobility Assessment Tight anterior thigh and calf muscles. Joint Mobility Assessment Joint Mobility Assessment Normal joint PT-OP-G Mobility & Gait Start: 12/24/17 17:35 Freq: Status: Active Protocol: Document 04/24/18 15:24 EA (Rec: 04/24/18 16:00 EA [id number]) OP Mobility Evaluation Bed Mobility Rolling indep Supine to and from Sit indep OP Gait Assessment Gait Able to Maintain Weight Bearing Status Yes During Gait Assistive Devices Assistive Device None Orthotic/Prosthetic Devices or Brace: No Gait Deviations General Gait Pattern Antalgic Factors Limiting Gait Function Factors Limiting Gait Function Decreased Strength Pain Comments Gait Comments slight antalgic gait due right knee pain. Stair Climbing Evaluation Evaluation Level of Assist On Stairs Independent Devices Stair Climbing Assistive Devices None Technique/Endurance Stair Climbing Direction Ascend and Descend Stair Climbing Technique Step Over Step Number of Steps Climbed 10 Comments Stair Climbing Comments Minimal difficulty at stair descent. PT-OP-J Posture/Palpation/Skin Start: 12/24/17 17:35 Freq: Status: Active Protocol: Document 04/24/18 15:24 EA (Rec: 04/24/18 16:00 EA [id number]) Posture Evaluation Position Standing Knee Posture (L) Genu Valgus (R) Genu Valgus Patellar Posture (L) Laterally Tilted (R) Laterally Tilted Ankle/Foot Posture (L) Pronated (R) Pronated Foot Arch (L) Low Arch (R) Low Arch Palpation Assessment Location One Palpation Location Quads, aand calf Palpation Findings Soft Tissue Tightness Tenderness Palpation Details Grade one tender along left quads and IT band PT-OP-K Range of Motion Start: 12/24/17 17:35 Freq: Status: Active Protocol: Document 04/24/18 15:24 EA (Rec: 04/24/18 16:00 EA [id number]) Knee Goniometric Range of Motion Knee Measured in Degrees Right Flexion Active (degrees) 125 Extension Active (degrees) 0 Left Flexion Active (degrees) 125 Extension Active (degrees) 0 PT-OP-L Special Tests Start: 12/24/17 17:35 Freq: Status: Active Protocol: Document 04/24/18 15:24 EA (Rec: 04/24/18 16:00 EA [id number]) Special Tests Hip Special Tests Rosalba's Test Test Results both sides + Knee Special Tests Rosa Isela's Test Test Results + both sides Rosalba's Test Test Results positive Hughston Pica Test Test Results negative Varus- 0 Degrees Test Results negative Valgus- 25 Degrees Test Results negative Magdiel Test Test Results neg Patellar Grind Test Test Results positbe left side Freedom's Sign Test Results positive left knee Apley's Compression Test Results neg. on both sides PT-OP-M Strength Start: 12/24/17 17:35 Freq: Status: Active Protocol: Document 04/24/18 15:24 EA (Rec: 04/24/18 16:00 EA [id number]) Hip Strength Hip Manual Muscle Testing Right Flexion (L2) 5 Normal Extension (S1) 5 Normal Abduction 5 Normal Adduction 4+ Good+ External Rotation 5 Normal Internal Rotation 4+ Good+ Left Flexion (L2) 4 Good Extension (S1) 5 Normal Abduction 4+ Good+ Adduction 4+ Good+ External Rotation 4+ Good+ Internal Rotation 5 Normal Knee Strength Knee Manual Muscle Testing Right Flexion (S2) 5 Normal Reason Not Measured Pain Comments Pain to right quads Left Flexion (S2) 5 Normal Extension (L3) 4+ Good+ PT-OP-T Assessment and Plan Start: 12/24/17 17:35 Freq: Status: Active Protocol: Document 05/30/18 16:40 EA (Rec: 05/30/18 16:48 EA [id number]) Physical Therapy Assessment Assessment Summary Assessment Pt tolerated therapeutic exercises with no discomfort noted. Patient executed exercises with good form. Patient is good to discharge to PT at this time. Physical Therapy Plan Discharge Physical Therapy Discharge Reasons Patient Request Discharge Comments Plateau progress. Other medical issues.
== END 2018-07-02 11:40 ==
LOC: PHYS 16:00
PROVIDERS: Family Provider Family Medicine; PCP Family Medicine; Visit Provider Physician Assistant
DX: M17.12 Unilateral primary osteoarthritis, left knee (principal); M25.561 Pain in right knee
CPT/HCPCS: 97010; 97014; 97032; 97110; 97140; 97162; 97535; G0283

== ENCOUNTER 2018-07-23 12:30 | Outpatient (RCR) | payer OTHER, MEDICAID, SELFPAY | END 2018-07-25 10:05 | LOC: SP 12:30 | PROVIDERS: Family Provider Family Medicine; PCP Family Medicine; Visit Provider Otolaryngology | DX: R05 Cough (principal); J39.2 Other diseases of pharynx; R07.0 Pain in throat | CPT/HCPCS: 92507; 92520; 92524; 92526 ==

== ENCOUNTER 2018-08-04 14:08 | Emergency (ER) | payer BC, OTHER, MEDICAID, SELFPAY ==
[2018-08-04 14:16] VITALS: BP 120/71; PULSE 87; RESP 20; TEMP 37; O2SAT 86
--- NOTE | 2018-08-04 17:19 | ED.NEUROSD ---
HPI - Neuro Symptoms/Deficit <HEMA Dexter - Last Filed: 08/04/18 22:12> General Chief Complaint: Neuro Symptoms/Deficit Stated Complaint: NUMBNESS IN BREASTS AND ARM Time Seen by Provider: 08/04/18 17:16 Source: patient Mode of arrival: ambulatory Limitations: no limitations History of Present Illness HPI Narrative: 58-year-old female with history of diabetes and is a nonsmoker here with brought complaints of numbness and tingling to bilateral extremities shoulders and with some numbness and tingling with pain down her right flank area over the past few weeks. She states she has been seen for this by her primary care provider however has not resolved. She denies any urinary symptoms. She denies any shortness of breath. She denies any stressors relievers of her discomfort. She is able to move her extremities with no complications. She is ambulatory into the emergency room. She denies any trauma. She states she was concerned. Patient states that she was treated with a muscle relaxer for her symptoms by her primary care provider. Although she states she has not been using them much. On Anticoagulants: No Related Data Home Medications Medication Instructions Recorded Confirmed [KYANI] #0 02/21/17 07/23/18 omega 2-klv-nlp-fish oil [Fish Oil] 1,000 mg PO #0 03/05/17 07/23/18 [chlorhexadine gluc.] #0 06/21/17 07/23/18 [zinc] #0 06/21/17 07/23/18 methotrexate sodium 2.5 mg tablet 2.5 mg PO DAILY 07/23/18 07/23/18 Previous Rx's Medication Instructions Recorded polyethylene glycol 3350 [Miralax] 17 gm PO QDAY #14 gm 06/24/17 sodium phosphates [Fleet Enema] 1 ea MO QDAYP PRN #1 enema 06/27/17 Lancets units BID #100 09/07/17 gabapentin 300 mg PO BID #180 cap 10/02/17 folic acid 1 mg PO QDAY #90 tab 10/03/17 insulin human U-100 NPH-regulr 30 unit SUBCUT BID #3 vial 02/26/18 70-30 mix 100 unit/mL subcutaneous susp metformin 1,000 mg tablet 1,000 mg PO BID #180 tab 02/26/18 furosemide 40 mg tablet 40 mg PO DAILY #30 tab 03/13/18 cyclobenzaprine 10 mg tablet 10 mg PO TID #30 tab 05/01/18 blood sugar diagnostic strips #200 each 05/06/18 Syringes: Ultra Fine Insulin #1 ea 05/20/18 Syringe w/Needle insulin syringes (disposable) 1 mL #100 each 06/04/18 lisinopril 20 1 tab PO QDAY #90 tab 07/22/18 mg-hydrochlorothiazide 12.5 mg tablet Allergies Allergy/AdvReac Type Severity Reaction Status Date / Time hazelnut [HAZELNUT] Allergy Intermediate HIVES Verified 07/23/18 11:01 fluconazole [FLUCONAZOLE] Allergy Mild skin Verified 07/23/18 11:01 reaction hydrocodone [HYDROCODONE] Allergy Mild nausea Verified 07/23/18 11:01 Insulins [INSULINS] Allergy Mild abdominal Verified 07/23/18 11:01 yeast infection latex [LATEX] Allergy Mild unknown Verified 07/23/18 11:01 morphine [MORPHINE] Allergy Mild too Verified 07/23/18 11:01 tired, knocks me out naproxen [NAPROXEN] Allergy Mild altered Verified 07/23/18 11:01 white blood cell count nitroglycerin [NITROGLYCERIN] Allergy Mild unknown Verified 07/23/18 11:01 Penicillins [PENICILLINS] Allergy Mild hives Verified 07/23/18 11:01 prednisone [PREDNISONE] Allergy Mild swelling Verified 07/23/18 11:01 sulfamethoxazole Allergy Mild internal Verified 07/23/18 11:01 [From BACTRIM] hives trimethoprim [From BACTRIM] Allergy Mild internal Verified 07/23/18 11:01 hives iodine [IODINE] Allergy Unknown Verified 07/23/18 11:01 cashews Allergy Mild throat Uncoded 07/23/18 11:01 tightened, severe reflux Review of Systems <HEMA Dexter - Last Filed: 08/04/18 22:12> Constitutional Denies chills, Denies fever(s), Denies lethargy and Denies weakness Eyes Denies change in vision, Denies eye discharge, Denies irritation and Denies loss of vision ENT Ears, Nose, Mouth, and Throat: Denies change in voice, Denies neck pain and Denies sore throat Cardiovascular Denies chest pain, Denies irregular heart rhythm, Denies lightheadedness, Denies palpitations, Denies dyspnea, Denies dyspnea on exertion and Denies orthopnea Comments: Numbness tingling to the neck chest upper extremities with some numbness and tingling down the right side of her abdomen with some abdominal discomfort Respiratory Denies cough, Denies dyspnea, Denies dyspnea on exertion and Denies wheezing Gastrointestinal Comments: Right flank and abdominal discomfort Genitourinary Denies hematuria, Denies flank pain, Denies urinary incontinence and Denies urinary urgency Musculoskeletal Denies neck pain Integumentary/Breasts Denies pruritus, Denies erythema, Denies rash and Denies wounds Neurologic Denies confusion, Denies loss of vision and Denies weakness Psychiatric Denies anxiety, Denies confusion, Denies depression, Denies homicidal ideation and Denies suicidal ideation Endocrine Denies palpitations Hematologic/Lymphatic Denies easy bruising Allergic/Immunologic Denies wheezing Exam <HEMA Dexter - Last Filed: 08/04/18 22:12> Initial Vital Signs Initial Vital Signs: Vital Signs Temperature 98.6 F 08/04/18 14:16 Pulse Rate 87 08/04/18 14:16 Respiratory Rate 20 08/04/18 14:16 Blood Pressure 120/71 08/04/18 14:16 Pulse Oximetry 86 L 08/04/18 14:16 Const General: cooperative and well developed Nutritional Appearance: well nourished Orientation: alert, awake, oriented x3 and not confused [facility] Mouth: oral mucosae normal and moist mucous membranes Eyes General: appearance normal, both eyes and all related structures Conjunctivae: conjunctivae normal Sclera: sclerae normal Pupils: PERRL EOM: EOM intact bilaterally Neck Neck: normal visual inspection, trachea midline, No lymphadenopathy, No midline deformity and No JVD Lymphatic: No lymphedema Chest Chest: normal inspection of the chest Resp Effort & Inspection: normal respiratory effort, able to speak in complete sentences, no respiratory distress and no use of accessory muscles Auscultation: clear to auscultation bilaterally, no rales, no rhonchi and no wheezes Cardio Rate: regular rate Rhythm: regular rhythm Heart Sounds: no click, no gallops, no murmurs and no rubs Pulses: normal peripheral pulses GI Inspection: non-distended Palpation: soft, no hepatosplenomegaly, No guarding, No pulsatile mass and tender (Generalized tenderness) Auscultation: normal bowel sounds Other: Right flank pain Skin General: no rashes or lesions noted, No jaundice and No petechiae Neuro General: alert, oriented x3, gait normal and no focal motor deficits Speech: speech normal Extrem Other: Bilateral upper extremities with full range of motion. Distal sensation is intact bilaterally. Distal pulses are intact. <Yoni Dockery DO - Last Filed: 08/07/18 08:37> Initial Vital Signs Initial Vital Signs: Vital Signs Temperature 98.6 F 08/04/18 14:16 Pulse Rate 87 08/04/18 14:16 Respiratory Rate 20 08/04/18 14:16 Blood Pressure 120/71 08/04/18 14:16 Pulse Oximetry 86 L 08/04/18 14:16 Course <HEMA Dexter - Last Filed: 08/04/18 22:12> Orders Ordered: Discontinued Medications Diphenhydramine HCl (Benadryl) 50 mg IV NOW ONE Stop: 08/04/18 17:53 Last Admin: 08/04/18 18:23 Dose: 50 mg Sodium Chloride (Normal Saline 0.9%) 1,000 mls @ 150 mls/hr IV CONT ADRIANO Last Admin: 08/04/18 18:23 Dose: 150 mls/hr Ondansetron HCl (Zofran) 4 mg IV NOW ONE Stop: 08/04/18 17:53 Last Admin: 08/04/18 18:23 Dose: 4 mg Vital Signs - 8 hr 08/04/18 14:16 08/04/18 18:07 08/04/18 21:23 Temperature 98.6 F Pulse Rate 87 78 76 Respiratory Rate 20 18 18 Blood Pressure 120/71 105/61 Blood Pressure [Left Arm] 113/74 Pulse Oximetry 86 L 98 96 <Yoni Dockery DO - Last Filed: 08/07/18 08:37> Orders Ordered: Discontinued Medications Diphenhydramine HCl (Benadryl) 50 mg IV NOW ONE Stop: 08/04/18 17:53 Last Admin: 08/04/18 18:23 Dose: 50 mg Sodium Chloride (Normal Saline 0.9%) 1,000 mls @ 150 mls/hr IV CONT ADRIANO Last Admin: 08/04/18 18:23 Dose: 150 mls/hr Ondansetron HCl (Zofran) 4 mg IV NOW ONE Stop: 08/04/18 17:53 Last Admin: 08/04/18 18:23 Dose: 4 mg Vital Signs - 8 hr 08/04/18 14:16 08/04/18 18:07 08/04/18 21:23 Temperature 98.6 F Pulse Rate 87 78 76 Respiratory Rate 20 18 18 Blood Pressure 120/71 105/61 Blood Pressure [Left Arm] 113/74 Pulse Oximetry 86 L 98 96 MDM - Neuro Symptoms/Deficit <HEMA Dexter - Last Filed: 08/04/18 22:12> Lab Data Result diagrams: 08/04/18 18:00 08/04/18 18:00 Lab Results 08/04/18 08/04/18 Range/Units 18:00 18:00 WBC 12.6 H (4.5-11.0) X10^3/uL RBC 4.97 (4.0-5.2) X10^6/uL Hgb 11.9 L (12.0-16.0) g/dL Hct 37.9 (36-46) % MCV 76.4 L (80-100) fL MCH 24.0 L (26-34) PG MCHC 31.5 (30-36) % RDW 15.9 H (11.6-14.8) % Plt Count 271 (150-400) X10^3/uL Neut % (Auto) 64.1 (50-75) % Lymph % (Auto) 28.8 (25-40) % [place] % (Auto) 4.3 (3-14) % Eos % (Auto) 2.1 (2-4) % Baso % (Auto) 0.7 (0-2) % Neut # (Auto) 8100 H (5347-1415) /uL Sodium 138 (137-145) mmol/L Potassium 4.1 (3.4-5.1) mmol/L Chloride 99 (98-107) mmol/L Carbon Dioxide 32 (22-32) mmol/L BUN 12 (7-17) mg/dL Creatinine 0.80 (0.52-1.04) mg/dL Estimated GFR > 60.0 (>60) mL/min BUN/Creatinine Ratio 15.0 (6-22) Glucose 287 H (70-100) mg/dL Calcium 9.3 (8.4-10.2) mg/dL Total Bilirubin 0.3 (0.2-1.3) mg/dL AST 17 (14-36) IU/L ALT 16 (9-52) IU/L Alkaline Phosphatase 122 (38-126) U/L Total Creatine Kinase 61 (30-135) U/L CK-MB (CK-2) TNP CK-MB (CK-2) Rel Index TNP Troponin I < 0.012 (0.01-0.034) ng/mL Total Protein 8.0 (6.3-8.2) g/dL Albumin 4.1 (3.5-5.0) g/dL Globulin 3.9 (1.7-4.1) g/dL Albumin/Globulin Ratio 1.1 (1.0-2.8) Lipase 101 (23-300) U/L Urine Dip Bedside Urine Glucose 1000 mg/dl Bedside Urine Bilirubin - Negative Bedside Urine Ketone - Negative Urine Specific [place] 1.020 Bedside Urine Occult Blood - Negative Bedside Urine pH 6.0 Bedside Urine Protein - Negative Bedside Urine Urobilinogen - Negative Bedside Urine Nitrite - Negative Bedside Urine Leukocytes - Negative Esterase Imaging Data CT scan - abdomen: Radiologist's impression: [place] [address] CT Scan Report Signed Patient: Daniel Krishnamurthy MR#: [id number] : 1960 Acct:[id number] Age/Sex: 58 / F Date of Service: 08/04/18 Loc: ED Accession Number: [id number] Procedure: CT abdomen pelvis w con Ordering Provider: Jimenez Ayoub PROCEDURE: CT ABDOMEN PELVIS W CON INDICATIONS: Pain to bilateral flanks and generalized abdominal pain TECHNIQUE: After the administration of intravenous contrast, 5 mm thick sections acquired from the diaphragm to the symphysis. 5 mm coronal and sagittal reformats were acquired. For radiation dose reduction, the following was used: automated exposure control, adjustment of mA and/or kV according to patient size. COMPARISON: [facility], CT, PE STUDY (CTA CHEST), 08/19/2017, 15:16. [facility], CT, ABDOMEN/PELVIS WITHOUT CONTRAS, 01/24/2017, 11:06. [facility], CT, CT CHEST WO CON, 12/08/2015, 13:51. [facility], CT, HEAD WITHOUT CONTRAST, 11/19/2015, 0:32. FINDINGS: Image quality: Excellent. ABDOMEN: Lung bases: Small scattered peripheral pulmonary opacities at the lung bases are noted. Heart size is normal. Solid organs: Liver is normal in size and enhancement. Gallbladder is unremarkable. Biliary system is non dilated. Pancreas enhances normally. Spleen is normal in size and enhancement. No adrenal nodules. Kidneys demonstrate normal size and enhancement, without hydronephrosis. Peritoneum and bowel: Bowel loops demonstrate normal wall thickness and caliber. No free fluid or air. Appendix is not clearly identified on this exam, but are no right lower quadrant inflammatory findings to suggest acute appendicitis. Nodes and vessels: No retroperitoneal or mesenteric adenopathy by size criteria. Aorta and inferior vena cava are normal in size. Mild calcified plaque of the abdominal aorta and branch vessels. PELVIS: Genitourinary: Bladder wall thickness is normal. Bones: Mild multilevel degenerative changes of the spine. IMPRESSION: #1. Colonic diverticulosis without evidence of acute diverticulitis. #2. Small bibasilar peripheral pulmonary opacities are nonspecific and may represent atelectasis, scarring, or developing pulmonary infection/pneumonia. Dictated by: Guillermo Krause M.D. on 08/04/2018 at 19:33 Approved by: Guillermo Krause M.D. on 08/04/2018 at 19:41 Chest x-ray: Radiologist's impression: [place] [address] XRay Report Signed Patient: Daniel Krishnamurthy MR#: [id number] : 1960 Acct:[id number] Age/Sex: 58 / F Date of Service: 08/04/18 Loc: ED Accession Number: [id number] Procedure: XR chest 1V Ordering Provider: Jimenez Ayoub PROCEDURE: XR CHEST 1V INDICATIONS: Pain to anterior chest with numbness to breast and upper ext TECHNIQUE: One view of the chest was acquired. COMPARISON: [facility], CHEST 1 VIEW, 08/19/2017, 13:47. [facility], CHEST 1 VIEW, 07/23/2017, 20:02. [facility], CHEST 2 VIEW, 12/12/2016, 16:25. [facility], CHEST 1 VIEW, 11/19/2015, 0:14. FINDINGS: Surgical changes and devices: None. Lungs and pleura: No pleural effusions or pneumothorax. Bilateral perihilar reticular opacities are noted. Mediastinum: Mediastinal contours appear normal. Heart size is normal. Bones and chest wall: Multilevel degenerative changes of the thoracic spine are present. IMPRESSION: Bilateral perihilar opacities may represent findings of mild pulmonary edema versus perihilar atelectasis, with infection thought less likely. Dictated by: Guillermo Krause M.D. on 08/04/2018 at 20:48 Approved by: Guillermo Krause M.D. on 08/04/2018 at 20:51 ECG Data Interpretation: EKG shows normal sinus rhythm with no ST elevation or depression. No ectopy. Ventricular rate of 71. Pr interval 157. QRS duration while 6. QTC of 405. X-ray consistent with prior EKG MDM Narrative Medical decision making narrative: CBC shows elevated white count of 12.6. Which is consistent with her prior lab values. CBC otherwise unremarkable. Chem panel shows elevated glucose at 287 otherwise is unremarkable. Cardiac enzymes were obtained were negative. Lipase was normal. EKG shows sinus rhythm with no ST elevation or depression. No ectopy. Chest x-ray shows findings consistent with perihilar atelectasis otherwise is negative. CT of the abdomen was obtained was negative for any acute findings. No emergent findings of her symptoms are found. Suggest that her symptoms are secondary to fibromyalgia discomfort. Will have follow-up with primary care provider later this week for re-evaluation. If any worsening symptoms return emergency room. Use currently prescribed pain management regimen as needed for any discomfort. <Yoni Dockery DO - Last Filed: 08/07/18 08:37> Lab Data Lab Results 08/04/18 08/04/18 Range/Units 18:00 18:00 WBC 12.6 H (4.5-11.0) X10^3/uL RBC 4.97 (4.0-5.2) X10^6/uL Hgb 11.9 L (12.0-16.0) g/dL Hct 37.9 (36-46) % MCV 76.4 L (80-100) fL MCH 24.0 L (26-34) PG MCHC 31.5 (30-36) % RDW 15.9 H (11.6-14.8) % Plt Count 271 (150-400) X10^3/uL Neut % (Auto) 64.1 (50-75) % Lymph % (Auto) 28.8 (25-40) % [place] % (Auto) 4.3 (3-14) % Eos % (Auto) 2.1 (2-4) % Baso % (Auto) 0.7 (0-2) % Neut # (Auto) 8100 H (2010-6973) /uL Sodium 138 (137-145) mmol/L Potassium 4.1 (3.4-5.1) mmol/L Chloride 99 (98-107) mmol/L Carbon Dioxide 32 (22-32) mmol/L BUN 12 (7-17) mg/dL Creatinine 0.80 (0.52-1.04) mg/dL Estimated GFR > 60.0 (>60) mL/min BUN/Creatinine Ratio 15.0 (6-22) Glucose 287 H (70-100) mg/dL Calcium 9.3 (8.4-10.2) mg/dL Total Bilirubin 0.3 (0.2-1.3) mg/dL AST 17 (14-36) IU/L ALT 16 (9-52) IU/L Alkaline Phosphatase 122 (38-126) U/L Total Creatine Kinase 61 (30-135) U/L CK-MB (CK-2) TNP CK-MB (CK-2) Rel Index TNP Troponin I < 0.012 (0.01-0.034) ng/mL Total Protein 8.0 (6.3-8.2) g/dL Albumin 4.1 (3.5-5.0) g/dL Globulin 3.9 (1.7-4.1) g/dL Albumin/Globulin Ratio 1.1 (1.0-2.8) Lipase 101 (23-300) U/L Urine Dip Bedside Urine Glucose 1000 mg/dl Bedside Urine Bilirubin - Negative Bedside Urine Ketone - Negative Urine Specific [place] 1.020 Bedside Urine Occult Blood - Negative Bedside Urine pH 6.0 Bedside Urine Protein - Negative Bedside Urine Urobilinogen - Negative Bedside Urine Nitrite - Negative Bedside Urine Leukocytes - Negative Esterase Discharge Plan Departure Patient Disposition: Home Clinical Impression: Fibromyalgia, Numbness and tingling of both upper extremities Discharge Date/Time: 08/04/18 21:23 Interventions: ED Discharge Assessment Last Done: 08/04/18 21:23 Instructions: DI for Numbness/tingling Activity Restrictions/Additional Instructions: Laboratory results and imaging today were unremarkable. No emergent cause of her symptoms are seen today. Suspect there might be a fibromyalgia component to her discomfort follow up with her primary care provider this week for re-evaluation. Use currently prescribed pain management regimen as directed. For any worsening symptoms return to the emergency room. Prescriptions: No Action [KYANI] Qty: 0 RF: 0 omega 1-wzi-aim-fish oil [Fish Oil] 1,000 MG capsule 1,000 mg PO Qty: 0 RF: 0 [zinc] Qty: 0 RF: 0 [chlorhexadine gluc.] Qty: 0 RF: 0 polyethylene glycol 3350 [Miralax] 17 GM powder in packet 17 gm PO QDAY Qty: 14 RF: 0 sodium phosphates [Fleet Enema] 133 ML enema 1 ea MO QDAYP PRNQty: 1 RF: 0 Lancets BID Qty: 100 RF: 0 gabapentin 100 MG capsule 300 mg PO BID Qty: 180 RF: 0 folic acid 1 MG tablet 1 mg PO QDAY Qty: 90 RF: 1 insulin NPH and regular human [Humulin 70/30 U-100 Insulin] 100 unit/mL (70-30) suspension 30 unit SUBCUT BID Qty: 3 RF: 3 metformin 1,000 mg tablet 1,000 mg PO BID Qty: 180 RF: 1 blood sugar diagnostic [OneTouch Ultra Blue Test Strip] strip .ROUTE .MEDSUPPLY Qty: 200 RF: 3 Syringes: Ultra Fine Insulin Syringe w/Needle .Route .MEDSUPPLY Qty: 1 RF: 5 insulin syringes (disposable) 1 mL syringe .ROUTE .MEDSUPPLY Qty: 100 RF: 11 lisinopril-hydrochlorothiazide 20-12.5 mg tablet 1 tab PO QDAY Qty: 90 RF: 3 furosemide [Lasix] 40 mg tablet 40 mg PO DAILY Qty: 30 RF: 3 cyclobenzaprine 10 mg tablet 10 mg PO TID Qty: 30 RF: 0 methotrexate sodium 2.5 mg tablet 2.5 mg PO DAILY RF: 0 Referrals: Wilian Booth MD [Primary Care Provider] - <Yoni Dockery DO - Last Filed: 08/07/18 08:37> Cosign ED Attending Nell Attestation: I was available for consultation during this patient's emergency department encounter
--- NOTE | 2018-08-04 17:40 | DI.RAD.S_ITS ---
PROCEDURE: XR CHEST 1V INDICATIONS: Pain to anterior chest with numbness to breast and upper ext TECHNIQUE: One view of the chest was acquired. COMPARISON: [facility], CHEST 1 VIEW, 08/19/2017, 13:47. [facility], CHEST 1 VIEW, 07/23/2017, 20:02. [facility], CHEST 2 VIEW, 12/12/2016, 16:25. [facility], CHEST 1 VIEW, 11/19/2015, 0:14. FINDINGS: Surgical changes and devices: None. Lungs and pleura: No pleural effusions or pneumothorax. Bilateral perihilar reticular opacities are noted. Mediastinum: Mediastinal contours appear normal. Heart size is normal. Bones and chest wall: Multilevel degenerative changes of the thoracic spine are present. IMPRESSION: Bilateral perihilar opacities may represent findings of mild pulmonary edema versus perihilar atelectasis, with infection thought less likely. Dictated by: Guillermo Krause M.D. on 08/04/2018 at 20:48 Approved by: Guillermo Krause M.D. on 08/04/2018 at 20:51
--- NOTE | 2018-08-04 17:41 | DI.CT.S_ITS ---
PROCEDURE: CT ABDOMEN PELVIS W CON INDICATIONS: Pain to bilateral flanks and generalized abdominal pain TECHNIQUE: After the administration of intravenous contrast, 5 mm thick sections acquired from the diaphragm to the symphysis. 5 mm coronal and sagittal reformats were acquired. For radiation dose reduction, the following was used: automated exposure control, adjustment of mA and/or kV according to patient size. COMPARISON: [facility], CT, PE STUDY (CTA CHEST), 08/19/2017, 15:16. [facility], CT, ABDOMEN/PELVIS WITHOUT CONTRAS, 01/24/2017, 11:06. , CT, CT CHEST WO CON, 12/08/2015, 13:51. [facility], CT, HEAD WITHOUT CONTRAST, 11/19/2015, 0:32. FINDINGS: Image quality: Excellent. ABDOMEN: Lung bases: Small scattered peripheral pulmonary opacities at the lung bases are noted. Heart size is normal. Solid organs: Liver is normal in size and enhancement. Gallbladder is unremarkable. Biliary system is non dilated. Pancreas enhances normally. Spleen is normal in size and enhancement. No adrenal nodules. Kidneys demonstrate normal size and enhancement, without hydronephrosis. Peritoneum and bowel: Bowel loops demonstrate normal wall thickness and caliber. No free fluid or air. Appendix is not clearly identified on this exam, but are no right lower quadrant inflammatory findings to suggest acute appendicitis. Nodes and vessels: No retroperitoneal or mesenteric adenopathy by size criteria. Aorta and inferior vena cava are normal in size. Mild calcified plaque of the abdominal aorta and branch vessels. PELVIS: Genitourinary: Bladder wall thickness is normal. Bones: Mild multilevel degenerative changes of the spine. IMPRESSION: #1. Colonic diverticulosis without evidence of acute diverticulitis. #2. Small bibasilar peripheral pulmonary opacities are nonspecific and may represent atelectasis, scarring, or developing pulmonary infection/pneumonia. Dictated by: Guillermo Krause M.D. on 08/04/2018 at 19:33 Approved by: Guillermo Krause M.D. on 08/04/2018 at 19:41
[2018-08-04 18:06] LABS: Add Manual Diff / Slide Review NO; Basophils Percent Auto 0.7 % (0-2); Eosinophils Percent Auto 2.1 % (2-4); Hematocrit 37.9 % (36-46); Hemoglobin 11.9 g/dL (12.0-16.0); Lymphocytes Percent Auto 28.8 % (25-40); Mean Corpuscular HGB Conc 31.5 % (30-36); Mean Corpuscular Volume 76.4 fL (80-100); Monocytes Percent Auto 4.3 % (3-14); Neutrophils Absolute Auto 8100 /uL (1500-7000); Neutrophils Percent Auto 64.1 % (50-75); Platelet Count 271 X10^3/uL (150-400); Red Blood Cell Count 4.97 X10^6/uL (4.0-5.2); Red Cell Distribution Width 15.9 % (11.6-14.8); White Blood Cell Count 12.6 X10^3/uL (4.5-11.0)
[2018-08-04 18:07] VITALS: BP 113/74; PULSE 78; RESP 18; O2SAT 98
[2018-08-04 18:20] LABS: Alanine Aminotransferase 16 IU/L (9-52); Albumin 4.1 g/dL (3.5-5.0); Albumin Globulin Ratio 1.1 (1.0-2.8); Alkaline Phosphatase 122 U/L (38-126); Aspartate Aminotransferase 17 IU/L (14-36); Bilirubin Total 0.3 mg/dL (0.2-1.3); Blood Urea Nitrogen 12 mg/dL (7-17); Calcium 9.3 mg/dL (8.4-10.2); Carbon Dioxide 32 mmol/L (22-32); Chloride 99 mmol/L (98-107); Creatine Kinase 61 U/L (30-135); Estimated Glomerular Filt Rate > 60.0 mL/min (>60); Globulin 3.9 g/dL (1.7-4.1); Glucose 287 mg/dL (70-100); HEMOLYSIS < 15 (0-50); Lipase 101 U/L (23-300); Potassium 4.1 mmol/L (3.4-5.1); Sodium 138 mmol/L (137-145)
[2018-08-04] MEDS: diphenhydrAMINE 50 MG/ML VIAL IV (18:23)
[2018-08-04] MEDS: ONDANSETRON 4 MG/2 ML INJ IV (18:23)
[2018-08-04] MEDS: SODIUM CHLORIDE 0.9% 1,000 ML 150 ML IV (18:23)
[2018-08-04 18:32] LABS: Troponin I < 0.012 ng/mL (0.01-0.034)
--- NOTE | 2018-08-04 20:01 | ED_ITS ---
HPI - Neuro Symptoms/Deficit <HEMA Dexter - Last Filed: 08/04/18 22:12> General Chief Complaint: Neuro Symptoms/Deficit Stated Complaint: NUMBNESS IN BREASTS AND ARM Time Seen by Provider: 08/04/18 17:16 Source: patient Mode of arrival: ambulatory Limitations: no limitations History of Present Illness HPI Narrative: 58-year-old female with history of diabetes and is a nonsmoker here with brought complaints of numbness and tingling to bilateral extremities shoulders and with some numbness and tingling with pain down her right flank area over the past few weeks. She states she has been seen for this by her primary care provider however has not resolved. She denies any urinary symptoms. She denies any shortness of breath. She denies any stressors relievers of her discomfort. She is able to move her extremities with no complications. She is ambulatory into the emergency room. She denies any trauma. She states she was concerned. Patient states that she was treated with a muscle relaxer for her symptoms by her primary care provider. Although she states she has not been using them much. On Anticoagulants: No Related Data Home Medications Medication Instructions Recorded Confirmed [KYANI] #0 02/21/17 07/23/18 omega 0-fdl-mfw-fish oil [Fish Oil] 1,000 mg PO #0 03/05/17 07/23/18 [chlorhexadine gluc.] #0 06/21/17 07/23/18 [zinc] #0 06/21/17 07/23/18 methotrexate sodium 2.5 mg tablet 2.5 mg PO DAILY 07/23/18 07/23/18 Previous Rx's Medication Instructions Recorded polyethylene glycol 3350 [Miralax] 17 gm PO QDAY #14 gm 06/24/17 sodium phosphates [Fleet Enema] 1 ea PA QDAYP PRN #1 enema 06/27/17 Lancets units BID #100 09/07/17 gabapentin 300 mg PO BID #180 cap 10/02/17 folic acid 1 mg PO QDAY #90 tab 10/03/17 insulin human U-100 NPH-regulr 30 unit SUBCUT BID #3 vial 02/26/18 70-30 mix 100 unit/mL subcutaneous susp metformin 1,000 mg tablet 1,000 mg PO BID #180 tab 02/26/18 furosemide 40 mg tablet 40 mg PO DAILY #30 tab 03/13/18 cyclobenzaprine 10 mg tablet 10 mg PO TID #30 tab 05/01/18 blood sugar diagnostic strips #200 each 05/06/18 Syringes: Ultra Fine Insulin #1 ea 05/20/18 Syringe w/Needle insulin syringes (disposable) 1 mL #100 each 06/04/18 lisinopril 20 1 tab PO QDAY #90 tab 07/22/18 mg-hydrochlorothiazide 12.5 mg tablet Allergies Allergy/AdvReac Type Severity Reaction Status Date / Time hazelnut [HAZELNUT] Allergy Intermediate HIVES Verified 07/23/18 11:01 fluconazole [FLUCONAZOLE] Allergy Mild skin Verified 07/23/18 11:01 reaction hydrocodone [HYDROCODONE] Allergy Mild nausea Verified 07/23/18 11:01 Insulins [INSULINS] Allergy Mild abdominal Verified 07/23/18 11:01 yeast infection latex [LATEX] Allergy Mild unknown Verified 07/23/18 11:01 morphine [MORPHINE] Allergy Mild too Verified 07/23/18 11:01 tired, knocks me out naproxen [NAPROXEN] Allergy Mild altered Verified 07/23/18 11:01 white blood cell count nitroglycerin [NITROGLYCERIN] Allergy Mild unknown Verified 07/23/18 11:01 Penicillins [PENICILLINS] Allergy Mild hives Verified 07/23/18 11:01 prednisone [PREDNISONE] Allergy Mild swelling Verified 07/23/18 11:01 sulfamethoxazole Allergy Mild internal Verified 07/23/18 11:01 [From BACTRIM] hives trimethoprim [From BACTRIM] Allergy Mild internal Verified 07/23/18 11:01 hives iodine [IODINE] Allergy Unknown Verified 07/23/18 11:01 cashews Allergy Mild throat Uncoded 07/23/18 11:01 tightened, severe reflux Review of Systems <HEMA Dexter - Last Filed: 08/04/18 22:12> Constitutional Denies chills, Denies fever(s), Denies lethargy and Denies weakness Eyes Denies change in vision, Denies eye discharge, Denies irritation and Denies loss of vision ENT Ears, Nose, Mouth, and Throat: Denies change in voice, Denies neck pain and Denies sore throat Cardiovascular Denies chest pain, Denies irregular heart rhythm, Denies lightheadedness, Denies palpitations, Denies dyspnea, Denies dyspnea on exertion and Denies orthopnea Comments: Numbness tingling to the neck chest upper extremities with some numbness and tingling down the right side of her abdomen with some abdominal discomfort Respiratory Denies cough, Denies dyspnea, Denies dyspnea on exertion and Denies wheezing Gastrointestinal Comments: Right flank and abdominal discomfort Genitourinary Denies hematuria, Denies flank pain, Denies urinary incontinence and Denies urinary urgency Musculoskeletal Denies neck pain Integumentary/Breasts Denies pruritus, Denies erythema, Denies rash and Denies wounds Neurologic Denies confusion, Denies loss of vision and Denies weakness Psychiatric Denies anxiety, Denies confusion, Denies depression, Denies homicidal ideation and Denies suicidal ideation Endocrine Denies palpitations Hematologic/Lymphatic Denies easy bruising Allergic/Immunologic Denies wheezing Exam <HEMA Dexter - Last Filed: 08/04/18 22:12> Initial Vital Signs Initial Vital Signs: Vital Signs Temperature 98.6 F 08/04/18 14:16 Pulse Rate 87 08/04/18 14:16 Respiratory Rate 20 08/04/18 14:16 Blood Pressure 120/71 08/04/18 14:16 Pulse Oximetry 86 L 08/04/18 14:16 Const General: cooperative and well developed Nutritional Appearance: well nourished Orientation: alert, awake, oriented x3 and not confused [facility] Mouth: oral mucosae normal and moist mucous membranes Eyes General: appearance normal, both eyes and all related structures Conjunctivae: conjunctivae normal Sclera: sclerae normal Pupils: PERRL EOM: EOM intact bilaterally Neck Neck: normal visual inspection, trachea midline, No lymphadenopathy, No midline deformity and No JVD Lymphatic: No lymphedema Chest Chest: normal inspection of the chest Resp Effort & Inspection: normal respiratory effort, able to speak in complete sentences, no respiratory distress and no use of accessory muscles Auscultation: clear to auscultation bilaterally, no rales, no rhonchi and no wheezes Cardio Rate: regular rate Rhythm: regular rhythm Heart Sounds: no click, no gallops, no murmurs and no rubs Pulses: normal peripheral pulses GI Inspection: non-distended Palpation: soft, no hepatosplenomegaly, No guarding, No pulsatile mass and tender (Generalized tenderness) Auscultation: normal bowel sounds Other: Right flank pain Skin General: no rashes or lesions noted, No jaundice and No petechiae Neuro General: alert, oriented x3, gait normal and no focal motor deficits Speech: speech normal Extrem Other: Bilateral upper extremities with full range of motion. Distal sensation is intact bilaterally. Distal pulses are intact. <Yoni Dockery DO - Last Filed: 08/07/18 08:37> Initial Vital Signs Initial Vital Signs: Vital Signs Temperature 98.6 F 08/04/18 14:16 Pulse Rate 87 08/04/18 14:16 Respiratory Rate 20 08/04/18 14:16 Blood Pressure 120/71 08/04/18 14:16 Pulse Oximetry 86 L 08/04/18 14:16 Course <HEMA Dexter - Last Filed: 08/04/18 22:12> Orders Ordered: Discontinued Medications Diphenhydramine HCl (Benadryl) 50 mg IV NOW ONE Stop: 08/04/18 17:53 Last Admin: 08/04/18 18:23 Dose: 50 mg Sodium Chloride (Normal Saline 0.9%) 1,000 mls @ 150 mls/hr IV CONT ADRIANO Last Admin: 08/04/18 18:23 Dose: 150 mls/hr Ondansetron HCl (Zofran) 4 mg IV NOW ONE Stop: 08/04/18 17:53 Last Admin: 08/04/18 18:23 Dose: 4 mg Vital Signs - 8 hr 08/04/18 14:16 08/04/18 18:07 08/04/18 21:23 Temperature 98.6 F Pulse Rate 87 78 76 Respiratory Rate 20 18 18 Blood Pressure 120/71 105/61 Blood Pressure [Left Arm] 113/74 Pulse Oximetry 86 L 98 96 <Yoni Dockery DO - Last Filed: 08/07/18 08:37> Orders Ordered: Discontinued Medications Diphenhydramine HCl (Benadryl) 50 mg IV NOW ONE Stop: 08/04/18 17:53 Last Admin: 08/04/18 18:23 Dose: 50 mg Sodium Chloride (Normal Saline 0.9%) 1,000 mls @ 150 mls/hr IV CONT ADRIANO Last Admin: 08/04/18 18:23 Dose: 150 mls/hr Ondansetron HCl (Zofran) 4 mg IV NOW ONE Stop: 08/04/18 17:53 Last Admin: 08/04/18 18:23 Dose: 4 mg Vital Signs - 8 hr 08/04/18 14:16 08/04/18 18:07 08/04/18 21:23 Temperature 98.6 F Pulse Rate 87 78 76 Respiratory Rate 20 18 18 Blood Pressure 120/71 105/61 Blood Pressure [Left Arm] 113/74 Pulse Oximetry 86 L 98 96 MDM - Neuro Symptoms/Deficit <HEMA Dexter - Last Filed: 08/04/18 22:12> Lab Data Result diagrams: 08/04/18 18:00 08/04/18 18:00 Lab Results 08/04/18 08/04/18 Range/Units 18:00 18:00 WBC 12.6 H (4.5-11.0) X10^3/uL RBC 4.97 (4.0-5.2) X10^6/uL Hgb 11.9 L (12.0-16.0) g/dL Hct 37.9 (36-46) % MCV 76.4 L (80-100) fL MCH 24.0 L (26-34) PG MCHC 31.5 (30-36) % RDW 15.9 H (11.6-14.8) % Plt Count 271 (150-400) X10^3/uL Neut % (Auto) 64.1 (50-75) % Lymph % (Auto) 28.8 (25-40) % [place] % (Auto) 4.3 (3-14) % Eos % (Auto) 2.1 (2-4) % Baso % (Auto) 0.7 (0-2) % Neut # (Auto) 8100 H (7612-8150) /uL Sodium 138 (137-145) mmol/L Potassium 4.1 (3.4-5.1) mmol/L Chloride 99 (98-107) mmol/L Carbon Dioxide 32 (22-32) mmol/L BUN 12 (7-17) mg/dL Creatinine 0.80 (0.52-1.04) mg/dL Estimated GFR > 60.0 (>60) mL/min BUN/Creatinine Ratio 15.0 (6-22) Glucose 287 H (70-100) mg/dL Calcium 9.3 (8.4-10.2) mg/dL Total Bilirubin 0.3 (0.2-1.3) mg/dL AST 17 (14-36) IU/L ALT 16 (9-52) IU/L Alkaline Phosphatase 122 (38-126) U/L Total Creatine Kinase 61 (30-135) U/L CK-MB (CK-2) TNP CK-MB (CK-2) Rel Index TNP Troponin I < 0.012 (0.01-0.034) ng/mL Total Protein 8.0 (6.3-8.2) g/dL Albumin 4.1 (3.5-5.0) g/dL Globulin 3.9 (1.7-4.1) g/dL Albumin/Globulin Ratio 1.1 (1.0-2.8) Lipase 101 (23-300) U/L Urine Dip Bedside Urine Glucose 1000 mg/dl Bedside Urine Bilirubin - Negative Bedside Urine Ketone - Negative Urine Specific [place] 1.020 Bedside Urine Occult Blood - Negative Bedside Urine pH 6.0 Bedside Urine Protein - Negative Bedside Urine Urobilinogen - Negative Bedside Urine Nitrite - Negative Bedside Urine Leukocytes - Negative Esterase Imaging Data CT scan - abdomen: Radiologist's impression: [place] [address] CT Scan Report Signed Patient: Daniel Kirshnamurthy MR#: [id number] : 1960 Acct:[id number] Age/Sex: 58 / F Date of Service: 08/04/18 Loc: ED Accession Number: [id number] Procedure: CT abdomen pelvis w con Ordering Provider: Jimenez Ayoub PROCEDURE: CT ABDOMEN PELVIS W CON INDICATIONS: Pain to bilateral flanks and generalized abdominal pain TECHNIQUE: After the administration of intravenous contrast, 5 mm thick sections acquired from the diaphragm to the symphysis. 5 mm coronal and sagittal reformats were acquired. For radiation dose reduction, the following was used: automated exposure control, adjustment of mA and/or kV according to patient size. COMPARISON: [facility], CT, PE STUDY (CTA CHEST), 08/19/2017, 15:16. [facility], CT, ABDOMEN/PELVIS WITHOUT CONTRAS, 01/24/2017, 11:06. [facility], CT, CT CHEST WO CON, 12/08/2015, 13:51. [facility], CT, HEAD WITHOUT CONTRAST, 11/19/2015, 0:32. FINDINGS: Image quality: Excellent. ABDOMEN: Lung bases: Small scattered peripheral pulmonary opacities at the lung bases are noted. Heart size is normal. Solid organs: Liver is normal in size and enhancement. Gallbladder is unremarkable. Biliary system is non dilated. Pancreas enhances normally. Spleen is normal in size and enhancement. No adrenal nodules. Kidneys demonstrate normal size and enhancement, without hydronephrosis. Peritoneum and bowel: Bowel loops demonstrate normal wall thickness and caliber. No free fluid or air. Appendix is not clearly identified on this exam, but are no right lower quadrant inflammatory findings to suggest acute appendicitis. Nodes and vessels: No retroperitoneal or mesenteric adenopathy by size criteria. Aorta and inferior vena cava are normal in size. Mild calcified plaque of the abdominal aorta and branch vessels. PELVIS: Genitourinary: Bladder wall thickness is normal. Bones: Mild multilevel degenerative changes of the spine. IMPRESSION: #1. Colonic diverticulosis without evidence of acute diverticulitis. #2. Small bibasilar peripheral pulmonary opacities are nonspecific and may represent atelectasis, scarring, or developing pulmonary infection/pneumonia. Dictated by: Guillermo Krause M.D. on 08/04/2018 at 19:33 Approved by: Guillermo Krause M.D. on 08/04/2018 at 19:41 Chest x-ray: Radiologist's impression: [place] [address] XRay Report Signed Patient: Daniel Krishnamurthy MR#: [id number] : 1960 Acct:[id number] Age/Sex: 58 / F Date of Service: 08/04/18 Loc: ED Accession Number: [id number] Procedure: XR chest 1V Ordering Provider: Jimenez Ayoub PROCEDURE: XR CHEST 1V INDICATIONS: Pain to anterior chest with numbness to breast and upper ext TECHNIQUE: One view of the chest was acquired. COMPARISON: [facility], CHEST 1 VIEW, 08/19/2017, 13:47. [facility], CHEST 1 VIEW, 07/23/2017, 20:02. [facility], CHEST 2 VIEW, 12/12/2016, 16:25. [facility], CHEST 1 VIEW, 11/19/2015, 0:14. FINDINGS: Surgical changes and devices: None. Lungs and pleura: No pleural effusions or pneumothorax. Bilateral perihilar reticular opacities are noted. Mediastinum: Mediastinal contours appear normal. Heart size is normal. Bones and chest wall: Multilevel degenerative changes of the thoracic spine are present. IMPRESSION: Bilateral perihilar opacities may represent findings of mild pulmonary edema versus perihilar atelectasis, with infection thought less likely. Dictated by: Guillermo Krause M.D. on 08/04/2018 at 20:48 Approved by: Guillermo Krause M.D. on 08/04/2018 at 20:51 ECG Data Interpretation: EKG shows normal sinus rhythm with no ST elevation or depression. No ectopy. Ventricular rate of 71. Pr interval 157. QRS duration while 6. QTC of 405. X-ray consistent with prior EKG MDM Narrative Medical decision making narrative: CBC shows elevated white count of 12.6. Which is consistent with her prior lab values. CBC otherwise unremarkable. Chem panel shows elevated glucose at 287 otherwise is unremarkable. Cardiac enzymes were obtained were negative. Lipase was normal. EKG shows sinus rhythm with no ST elevation or depression. No ectopy. Chest x-ray shows findings consistent with perihilar atelectasis otherwise is negative. CT of the abdomen was obtained was negative for any acute findings. No emergent findings of her symptoms are found. Suggest that her symptoms are secondary to fibromyalgia discomfort. Will have follow-up with primary care provider later this week for re-evaluation. If any worsening symptoms return emergency room. Use currently prescribed pain management regimen as needed for any discomfort. <Yoni Dockery DO - Last Filed: 08/07/18 08:37> Lab Data Lab Results 08/04/18 08/04/18 Range/Units 18:00 18:00 WBC 12.6 H (4.5-11.0) X10^3/uL RBC 4.97 (4.0-5.2) X10^6/uL Hgb 11.9 L (12.0-16.0) g/dL Hct 37.9 (36-46) % MCV 76.4 L (80-100) fL MCH 24.0 L (26-34) PG MCHC 31.5 (30-36) % RDW 15.9 H (11.6-14.8) % Plt Count 271 (150-400) X10^3/uL Neut % (Auto) 64.1 (50-75) % Lymph % (Auto) 28.8 (25-40) % [place] % (Auto) 4.3 (3-14) % Eos % (Auto) 2.1 (2-4) % Baso % (Auto) 0.7 (0-2) % Neut # (Auto) 8100 H (2280-5908) /uL Sodium 138 (137-145) mmol/L Potassium 4.1 (3.4-5.1) mmol/L Chloride 99 (98-107) mmol/L Carbon Dioxide 32 (22-32) mmol/L BUN 12 (7-17) mg/dL Creatinine 0.80 (0.52-1.04) mg/dL Estimated GFR > 60.0 (>60) mL/min BUN/Creatinine Ratio 15.0 (6-22) Glucose 287 H (70-100) mg/dL Calcium 9.3 (8.4-10.2) mg/dL Total Bilirubin 0.3 (0.2-1.3) mg/dL AST 17 (14-36) IU/L ALT 16 (9-52) IU/L Alkaline Phosphatase 122 (38-126) U/L Total Creatine Kinase 61 (30-135) U/L CK-MB (CK-2) TNP CK-MB (CK-2) Rel Index TNP Troponin I < 0.012 (0.01-0.034) ng/mL Total Protein 8.0 (6.3-8.2) g/dL Albumin 4.1 (3.5-5.0) g/dL Globulin 3.9 (1.7-4.1) g/dL Albumin/Globulin Ratio 1.1 (1.0-2.8) Lipase 101 (23-300) U/L Urine Dip Bedside Urine Glucose 1000 mg/dl Bedside Urine Bilirubin - Negative Bedside Urine Ketone - Negative Urine Specific [place] 1.020 Bedside Urine Occult Blood - Negative Bedside Urine pH 6.0 Bedside Urine Protein - Negative Bedside Urine Urobilinogen - Negative Bedside Urine Nitrite - Negative Bedside Urine Leukocytes - Negative Esterase Discharge Plan Departure Patient Disposition: Home Clinical Impression: Fibromyalgia, Numbness and tingling of both upper extremities Discharge Date/Time: 08/04/18 21:23 Interventions: ED Discharge Assessment Last Done: 08/04/18 21:23 Instructions: DI for Numbness/tingling Activity Restrictions/Additional Instructions: Laboratory results and imaging today were unremarkable. No emergent cause of her symptoms are seen today. Suspect there might be a fibromyalgia component to her discomfort follow up with her primary care provider this week for re- evaluation. Use currently prescribed pain management regimen as directed. For any worsening symptoms return to the emergency room. Prescriptions: No Action [KYANI] Qty: 0 RF: 0 omega 3-erx-xdr-fish oil [Fish Oil] 1,000 MG capsule 1,000 mg PO Qty: 0 RF: 0 [zinc] Qty: 0 RF: 0 [chlorhexadine gluc.] Qty: 0 RF: 0 polyethylene glycol 3350 [Miralax] 17 GM powder in packet 17 gm PO QDAY Qty: 14 RF: 0 sodium phosphates [Fleet Enema] 133 ML enema 1 ea PA QDAYP PRNQty: 1 RF: 0 Lancets BID Qty: 100 RF: 0 gabapentin 100 MG capsule 300 mg PO BID Qty: 180 RF: 0 folic acid 1 MG tablet 1 mg PO QDAY Qty: 90 RF: 1 insulin NPH and regular human [Humulin 70/30 U-100 Insulin] 100 unit/mL (70-30 ) suspension 30 unit SUBCUT BID Qty: 3 RF: 3 metformin 1,000 mg tablet 1,000 mg PO BID Qty: 180 RF: 1 blood sugar diagnostic [OneTouch Ultra Blue Test Strip] strip .ROUTE .MEDSUPPLY Qty: 200 RF: 3 Syringes: Ultra Fine Insulin Syringe w/Needle .Route .MEDSUPPLY Qty: 1 RF: 5 insulin syringes (disposable) 1 mL syringe .ROUTE .MEDSUPPLY Qty: 100 RF: 11 lisinopril-hydrochlorothiazide 20-12.5 mg tablet 1 tab PO QDAY Qty: 90 RF: 3 furosemide [Lasix] 40 mg tablet 40 mg PO DAILY Qty: 30 RF: 3 cyclobenzaprine 10 mg tablet 10 mg PO TID Qty: 30 RF: 0 methotrexate sodium 2.5 mg tablet 2.5 mg PO DAILY RF: 0 Referrals: Wilian Booth MD [Primary Care Provider] - <Yoni Dockery DO - Last Filed: 08/07/18 08:37> Cosign ED Attending Nell Attestation: I was available for consultation during this patient's emergency department encounter
[2018-08-04 21:23] VITALS: BP 105/61; PULSE 76; RESP 18; O2SAT 96
--- NOTE | 2018-09-03 16:50 | PC.NURSE ---
Per Ria MULTANI, Pt received 1000ml of NS IV and it was completed at 1957 on 08/04/2018
== END 2018-08-04 21:23 | disposition home or self-care (01) ==
PROVIDERS: Emergency Provider Nurse Practitioner Family; Family Provider Family Medicine; PCP Family Medicine
DX: M79.7 Fibromyalgia (principal); R20.0 Anesthesia of skin; R20.2 Paresthesia of skin
CPT/HCPCS: 36591; 71045; 74177; 80053; 81003; 82550; 83690; 84484; 85025; 93005; 96361; 96374; 96375; 99282; 99285; J1200; J2405; Q9967

== ENCOUNTER → 2018-08-05 13:17 | Outpatient (CLI) | payer OTHER, MEDICAID, SELFPAY ==
[2018-08-05 15:25] LABS: Appearance Urine UA CLEAR; Bilirubin Urine UA NEGATIVE (NEGATIVE); Color Urine UA YELLOW; Glucose Urine UA 2+ g/dL (Negative); Ketones Urine UA NEGATIVE (NEGATIVE); Leukocyte Esterase Urine UA NEGATIVE (NEGATIVE); Nitrite Urine UA NEGATIVE (Negative); Occult Blood Urine UA NEGATIVE (Negative); Protein Urine UA NEGATIVE (Negative); Specific Gravity Urine UA 1.025 (1.000-1.035); Urobilinogen Urine UA 0.2 E.U./dL (0.2); pH Urine UA 5.5 (4.5-8.0)
== END ==
PROVIDERS: Family Provider Family Medicine; PCP Family Medicine; Visit Provider Family Medicine
DX: R30.0 Dysuria (principal)
CPT/HCPCS: 81003

== ENCOUNTER → 2018-11-07 08:14 | Outpatient (CLI) | payer OTHER, MEDICAID, SELFPAY ==
--- NOTE | 2018-11-07 08:15 | DI.US.S_ITS ---
LIMITED ULTRASOUND OF LEFT BREAST AND AXILLA: 11/07/2018 CLINICAL: Palpable left breast lump, pain, nipple discharge. Comparison is made to exams dated: 11/07/2018 mammogram, 12/20/2017 ultrasound, 12/20/2017 mammogram, and 11/29/2016 mammogram - [facility]. Real-time ultrasound of the left breast retroareolar and axilla regions was performed on the areas of interest. IMPRESSION: NEGATIVE There is no sonographic evidence of malignancy. There is no abnormality seen in the left breast to correspond with the discharge from the nipple in the sub-areolar depth, however, clinical followup is recommended. There is no abnormality seen in the left axilla to correspond with the pain in the left axilla, however, clinical followup is recommended. A 1 year screening mammogram is recommended. This exam was interpreted at Station ID: [id number]. Electronically Signed By: Woody gibbs/trent:11/07/2018 12:42:12 copy to: Wilian Booth letter sent: Clinical Evaluation Ultrasound BI-RADS: 1 Negative
--- NOTE | 2018-11-07 08:15 | DI.US.S_ITS ---
ULTRASOUND OF RIGHT AXILLA: 11/07/2018 CLINICAL: Focal right breast pain. lump. Comparison is made to exams dated: 11/07/2018 mammogram, 12/20/2017 mammogram, 11/29/2016 mammogram, 10/07/2015 mammogram - [facility], and 11/10/2010 mammogram - [facility]. Real-time ultrasound of the right axilla was performed on the area of interest. IMPRESSION: NEGATIVE There is no sonographic evidence of malignancy. There is no abnormality seen in the right axilla to correspond with the pain in the right axilla, however, clinical followup is recommended. A 1 year screening mammogram is recommended. This exam was interpreted at Station ID: [id number]. Electronically Signed By: Woody gibbs/trent:11/07/2018 12:43:13 copy to: Wilian Booth letter sent: Clinical Evaluation Ultrasound BI-RADS: 1 Negative
--- NOTE | 2018-11-07 08:15 | DI.MG.S_ITS ---
BILATERAL DIGITAL DIAGNOSTIC MAMMOGRAM 3D/2D: 11/07/2018 CLINICAL: Bilateral breast and breast axilla pain. Comparison is made to exams dated: 12/20/2017 mammogram, 11/29/2016 mammogram, and 10/07/2015 mammogram - [facility]. There are scattered fibroglandular elements in both breasts. No significant masses, calcifications, or other findings are seen in either breast. IMPRESSION: INCOMPLETE: NEEDS ADDITIONAL IMAGING EVALUATION There is no abnormality seen in the left axilla to correspond with the pain in the left axilla, however, ultrasound is recommended. There is no abnormality seen in the right axilla to correspond with the pain in the right axilla, however, ultrasound is recommended. There is no abnormality seen in the left breast to correspond with the discharge from the nipple in the sub-areolar depth, however, ultrasound is recommended. This exam was interpreted at Station ID: [id number]. NOTE: For mammograms, a report in lay terms will be sent to the patient. Approximately 15% of breast malignancies will not be visualized mammographically. In the management of a palpable breast mass, a negative mammogram must not discourage biopsy of a clinically suspicious lesion. Electronically Signed By: Woody gibbs/trent:11/07/2018 14:08:52 copy to: Wilian Booth ACR BI-RADS Category 0: Incomplete [id number]
== END ==
PROVIDERS: Family Provider Family Medicine; PCP Family Medicine
DX: R92.1 Mammographic calcification found on diagnostic imaging of breast (principal); N64.4 Mastodynia; M79.629 Pain in unspecified upper arm; N64.52 Nipple discharge; N63.20 Unspecified lump in the left breast, unspecified quadrant; N63.10 Unspecified lump in the right breast, unspecified quadrant
CPT/HCPCS: 76642; 77066; G0279

== ENCOUNTER 2019-01-29 15:52 | Outpatient (RCR) | payer OTHER, MEDICAID, SELFPAY ==
--- NOTE | 2019-01-29 17:10 | PT.OIE ---
Current Diagnoses Dizziness and giddiness (01/29/19) Past Medical History (Last Reviewed 10/07/18 @ 15:49 by Naeem Patricia MD) Abnormal chest xray (Chronic ~2002) Acne (Chronic ~2004) Anemia (Chronic) Ankle pain (Chronic ~2012) Asthma (Chronic ~1997) Carpal tunnel syndrome (Chronic ~1996) Diabetes mellitus (Chronic) Eczema (Chronic ~1997) Edema (Chronic) Foot pain (Chronic ~2012) Fractures (Chronic ~1987) Gastric ulcer (Chronic) Headache (Chronic) Leg injury (Chronic ~2014) Sarcoidosis (Chronic ~2004) Shoulder pain (Chronic ~2001) Uterine cancer (Chronic) Vision disorder (Chronic) Past Surgical History (Last Reviewed 08/04/18 @ 21:12 by HEMA Dexter) Anesthesia (Resolved) History of carpal tunnel repair Status post biopsy Status post biopsy Status post colonoscopy Status post hemorrhoidectomy Status post hysterectomy Provider Visit Care Team Role Provider Type Wilian Booth MD Primary Care Provider Physician Specialty: [facility] Address: [address] [place] [address] Email: [email or web address] Eugenio Stewart MD Attending Provider Physician Specialty: Ear, Nose, Throat Address: [address] [place] [address] Email: Physical Therapy Initial Evaluation PT-OP-A Visit Information Start: 01/31/19 08:34 Freq: Status: Active Protocol: Document 01/29/19 16:20 DCW (Rec: 01/31/19 08:58 DC [id number]) Out-Patient Physical Therapy Visit Information Visit Information Visit Type Initial Evaluation Visit Start Time 16:20 Visit Stop Time 17:10 Total Visit Minutes 50 Visit Number 1 Number of CART PUSHER Visits 0 Evaluation Information Evaluation Date 01/29/19 PT-OP-B Current Condition Start: 01/31/19 08:34 Freq: Status: Active Protocol: Document 01/29/19 16:20 DCW (Rec: 01/31/19 08:58 DC [id number]) Current Condition History of Current Condition Onset Date 2003 Current Complaints Episodes of imbalance, particularly with increased visual input History of Current Condition Pt is a 58 year old female complaining of a 15 year history of spontaneous vertigo and imbalance. Pt reports episodes last minutes to hours . Pt notes symptoms originally began in 2003 when she was receiving cancer treatment, but then worsened when she moved to this area in 2007. Pt has noticed that the symptoms come and go, and she believes there seems to be an association with seasonal changes and her sinus pressure . Symptoms are provoked by driving long distances, or watching a lot of things moving around, even when sitting. Pt does note that in 1998, she had a beam dropped on her head at work, suffered a concussion, and afterward started experiencing double vision and had to do eye exercises to strengthen her occulomotor muscles. Pt denies recent hearing changes. Pt reports a history of HTN, diabetes, head trauma, migraines, and back/neck problems. Treatment Goals Patient/Caregiver Goals Pt's goal is to limit her ongoing dizziness Prior Functional Status Baseline Function- ADL's Independent Baseline Function- Mobility Independent Current Functional Impairments (Reported) Functional Limitations- Other Trouble with driving longer than 30 minutes, difficulty focusing on moving patterns PT-OP-C Subjective Start: 01/31/19 08:34 Freq: Status: Active Protocol: Document 01/29/19 16:20 DCW (Rec: 01/31/19 08:58 DCW [id number]) Patient Questionnaires Dizziness Handicap Inventory DHI Score 52% DHI Functional Impairment 40 to 59% Impaired (Score 40- 59) PT-OP-D Balance Start: 01/31/19 08:34 Freq: Status: Active Protocol: Document 01/29/19 16:20 DCW (Rec: 01/31/19 08:58 DCW [id number]) Balance Tests CTSIB CTSIB Position 1 Slight Sway CTSIB Position 2 Slight Sway CTSIB Position 3 Fall Reaction CTSIB Position 4 Mild Sway CTSIB Position 5 Fall Reaction CTSIB Position 6 Fall Reaction PT-OP-O Vestibular Start: 01/31/19 08:34 Freq: Status: Active Protocol: Document 01/29/19 16:20 DCW (Rec: 01/31/19 08:58 DCW [id number]) Vestibular Assessment Screening Tests Vestibular Artery Screen Negative Auditory Tests Rivas Test Negative Rinne Test Negative Visual Testing Smooth Pursuits Horizontal WNL Smooth Pursuits Vertical WNL Saccades Horizontal WNL Gaze Evoked Nystagmus With Fixation Negative Gaze Evoked Nystagmus Without Fixation Negative Heave Test Negative Thrust Head Negative [place]ordo String Test WNL Convergence Test WNL DVA (Line Degradation) 2 Head Shake Negative Spontaneous Nystagmus Negative Vestibulo-Ocular Reflex Cancellation Negative Vestibular Function Tests CTSIB Position 1 Slight Sway CTSIB Position 2 Slight Sway CTSIB Position 3 Fall Reaction CTSIB Position 4 Mild Sway CTSIB Position 5 Fall Reaction CTSIB Position 6 Fall Reaction Comments Vestibular Comments Increased sway and discomfort watching wall with disco ball PT-OP-Q Treatments Start: 01/31/19 08:34 Freq: Status: Active Protocol: Document 01/29/19 16:20 DCW (Rec: 01/31/19 08:58 DCW [id number]) Neuro Re-Education Treatment Vestibular Rehabilitation Corrective Saccades Details Eyes, then head Distance From Target arm length Speed as tolerated X2 Viewing Details target and head move inopposite directions Distance From Target arm length Speed as tolerated X1 Viewing Details target still, head moves Distance From Target arm length Speed as tolerated VOR Retraining Details Head, eyes, and target move together Distance From Target arm length Speed as tolerated PT-OP-T Assessment and Plan Start: 01/31/19 08:34 Freq: Status: Active Protocol: Document 01/29/19 16:20 DCW (Rec: 01/31/19 08:58 DCW [id number]) Physical Therapy Assessment Rehab Potential Rehabilitation Potential Good Evaluation Complexity Number of Personal Factors/Comorbidities 1-2 Number of Body Systems Impaired 1-2 Clinical Presentation at Evaluation Stable Impairments Impairments Balance Vestibular Goals Three Impairment Pt unable to drive longer than 30 minutes without increased symptoms Hearing Officer Goal (LTG) Pt to be able to drive 1.5 hours from her home to [place] with no increase in symptoms LTG Duration 03/31/19 Two Impairment Pt has fall reaction on positions III, V, and during CTSIB Hearing Officer Goal (LTG) Pt to display at worst Moderate sway in all CTSIB positions LTG Duration 03/31/19 One Impairment Pt does not have an appropriate vestibular home exercise program Short Term Goal (STG) Pt to be independent and compliant with an appropriate vestibular home exercise program STG Duration 02/28/19 Assessment Summary Assessment Pt presents with optokinetic nystagmus/visual motion sensitivity. Her vestibular examination is largely negative, and symptoms are mainly subjective in nature. Pt does display poor balance/ fall reactions whenever with any visual conflict (CTSIB positions III and ), or with absent visual input when on a compliant surface (CTSIB position V). Pt will likely benefit from vestibular rehabilitation focused on increasing visual motion stimuli and working on her X1/ X2 viewing, which she had difficulty with when practicing in the clinic today . Pt feels that with her HEP, she should be able to practice independently without returning to vestibular therapy. Therapist informed her that her chart would not be discharged immediately, and is she had any questions, concerns, change in symptoms, or problems with her exercises , she could make a follow-up appointment. Physical Therapy Plan Frequency and Duration Frequency of Treatment 1x/Week Duration of Treatment 6 weeks Plan of Care Start Date 01/29/19 Plan of Care End Date 03/12/19 Therapeutic Interventions Therapeutic Interventions Balance Training Canalithic Repositioning Vestibular Rehabilitation Next Visit Focus/Plan Next Note Type Treatment Note Next Visit Plan Vestibular rehabilitation focusiong on visual motion stimuli, VOR training, X1/X2 viewing
--- NOTE | 2019-01-29 17:10 | PT.OPPOC ---
Current Diagnoses Dizziness and giddiness (01/29/19) Provider Visit Care Team Role Provider Type Wilian Booth MD Primary Care Provider Physician Specialty: Family Practice Address: [address] [place], [address] Email: [email or web address] Eugenio Stewart MD Attending Provider Physician Specialty: Ear, Nose, Throat Address: [address] [place] [address], [id number] Email: Plan Of Care PT-OP-T Assessment and Plan Start: 01/31/19 08:34 Freq: Status: Active Protocol: Document 01/29/19 16:20 DCW (Rec: 01/31/19 08:58 DCW [id number]) Physical Therapy Assessment Rehab Potential Rehabilitation Potential Good Evaluation Complexity Number of Personal Factors/Comorbidities 1-2 Number of Body Systems Impaired 1-2 Clinical Presentation at Evaluation Stable Impairments Impairments Balance Vestibular Goals Three Impairment Pt unable to drive longer than 30 minutes without increased symptoms Halfway Goal (LTG) Pt to be able to drive 1.5 hours from her home to [place] with no increase in symptoms LTG Duration 03/31/19 Two Impairment Pt has fall reaction on positions III, V, and during CTSIB Halfway Goal (LTG) Pt to display at worst Moderate sway in all CTSIB positions LTG Duration 03/31/19 One Impairment Pt does not have an appropriate vestibular home exercise program Short Term Goal (STG) Pt to be independent and compliant with an appropriate vestibular home exercise program STG Duration 02/28/19 Assessment Summary Assessment Pt presents with optokinetic nystagmus/visual motion sensitivity. Her vestibular examination is largely negative, and symptoms are mainly subjective in nature. Pt does display poor balance/ fall reactions whenever with any visual conflict (CTSIB positions III and ), or with absent visual input when on a compliant surface (CTSIB position V). Pt will likely benefit from vestibular rehabilitation focused on increasing visual motion stimuli and working on her X1/ X2 viewing, which she had difficulty with when practicing in the clinic today . Pt feels that with her HEP, she should be able to practice independently without returning to vestibular therapy. Therapist informed her that her chart would not be discharged immediately, and is she had any questions, concerns, change in symptoms, or problems with her exercises , she could make a follow-up appointment. Physical Therapy Plan Frequency and Duration Frequency of Treatment 1x/Week Duration of Treatment 6 weeks Plan of Care Start Date 01/29/19 Plan of Care End Date 03/12/19 Therapeutic Interventions Therapeutic Interventions Balance Training Canalithic Repositioning Vestibular Rehabilitation Next Visit Focus/Plan Next Note Type Treatment Note Next Visit Plan Vestibular rehabilitation focusiong on visual motion stimuli, VOR training, X1/X2 viewing Plan of Care Dates Plan of Care Start Date 01/29/19 Plan of Care End Date 03/12/19 Please Sign and Return: I have reviewed this Plan of Care and certify that the skilled therapy services above are required to meet the patient?s needs. Physician Signature Date Printed Name and Credentials Clinical Instructor Signature Printed Name and Credentials
--- NOTE | 2019-03-10 12:32 | PT.OPDS ---
Current Diagnoses Dizziness and giddiness (01/29/19) Provider Visit Care Team Role Provider Type Wilian Booth MD Primary Care Provider Physician Specialty: Family Practice Address: [address] [place], [address] Email: [email or web address] Eugenio Stewart MD Attending Provider Physician Specialty: Ear, Nose, Throat Address: [address] [place] [address], [phone] Email: Visit Number Visit Number 1 Discharge Summary PT-OP-B Current Condition Start: 01/31/19 08:34 Freq: Status: Active Protocol: Document 01/29/19 16:20 DCW (Rec: 01/31/19 08:58 DCW [id number]) Current Condition History of Current Condition Onset Date 2003 Current Complaints Episodes of imbalance, particularly with increased visual input History of Current Condition Pt is a 58 year old female complaining of a 15 year history of spontaneous vertigo and imbalance. Pt reports episodes last minutes to hours . Pt notes symptoms originally began in 2003 when she was receiving cancer treatment, but then worsened when she moved to this area in 2007. Pt has noticed that the symptoms come and go, and she believes there seems to be an association with seasonal changes and her sinus pressure . Symptoms are provoked by driving long distances, or watching a lot of things moving around, even when sitting. Pt does note that in 1998, she had a beam dropped on her head at work, suffered a concussion, and afterward started experiencing double vision and had to do eye exercises to strengthen her occulomotor muscles. Pt denies recent hearing changes. Pt reports a history of HTN, diabetes, head trauma, migraines, and back/neck problems. Treatment Goals Patient/Caregiver Goals Pt's goal is to limit her ongoing dizziness Prior Functional Status Baseline Function- ADL's Independent Baseline Function- Mobility Independent Current Functional Impairments (Reported) Functional Limitations- Other Trouble with driving longer than 30 minutes, difficulty focusing on moving patterns PT-OP-C Subjective Start: 01/31/19 08:34 Freq: Status: Active Protocol: Document 01/29/19 16:20 DCW (Rec: 01/31/19 08:58 DCW [id number]) Patient Questionnaires Dizziness Handicap Inventory DHI Score 52% DHI Functional Impairment 40 to 59% Impaired (Score 40- 59) PT-OP-D Balance Start: 01/31/19 08:34 Freq: Status: Active Protocol: Document 01/29/19 16:20 DCW (Rec: 01/31/19 08:58 DEW [id number]) Balance Tests CTSIB CTSIB Position 1 Slight Sway CTSIB Position 2 Slight Sway CTSIB Position 3 Fall Reaction CTSIB Position 4 Mild Sway CTSIB Position 5 Fall Reaction CTSIB Position 6 Fall Reaction PT-OP-O Vestibular Start: 01/31/19 08:34 Freq: Status: Active Protocol: Document 01/29/19 16:20 DCW (Rec: 01/31/19 08:58 [facility] [id number]) Vestibular Assessment Screening Tests Vestibular Artery Screen Negative Auditory Tests Rivas Test Negative Rinne Test Negative Visual Testing Smooth Pursuits Horizontal WNL Smooth Pursuits Vertical WNL Saccades Horizontal WNL Gaze Evoked Nystagmus With Fixation Negative Gaze Evoked Nystagmus Without Fixation Negative Heave Test Negative Thrust Head Negative [place] String Test WNL Convergence Test WNL DVA (Line Degradation) 2 Head Shake Negative Spontaneous Nystagmus Negative Vestibulo-Ocular Reflex Cancellation Negative Vestibular Function Tests CTSIB Position 1 Slight Sway CTSIB Position 2 Slight Sway CTSIB Position 3 Fall Reaction CTSIB Position 4 Mild Sway CTSIB Position 5 Fall Reaction CTSIB Position 6 Fall Reaction Comments Vestibular Comments Increased sway and discomfort watching wall with disco ball PT-OP-T Assessment and Plan Start: 01/31/19 08:34 Freq: Status: Active Protocol: Document 03/10/19 12:30 DCW (Rec: 03/10/19 12:32 [facility] [id number]) Physical Therapy Assessment Goals Three Impairment Pt unable to drive longer than 30 minutes without increased symptoms Range Master Goal (LTG) Pt to be able to drive 1.5 hours from her home to [place] with no increase in symptoms LTG Duration 03/31/19 Two Impairment Pt has fall reaction on positions III, V, and during CTSIB Mcc Goal (LTG) Pt to display at worst Moderate sway in all CTSIB positions LTG Duration 03/31/19 One Impairment Pt does not have an appropriate vestibular home exercise program Short Term Goal (STG) Pt to be independent and compliant with an appropriate vestibular home exercise program STG Duration 02/28/19 Assessment Summary Assessment At the time of her evaluation. pt felt that she should be able to improve independently with no regular vestibular therapy required. Pt was instructed to call and schedule a follow-up visit within one month if she changed her mind. Pt has now not bee seen in 40 days, and will be discharged from skilled PT at this time. Physical Therapy Plan Frequency and Duration Frequency of Treatment 1x/Week Duration of Treatment 6 weeks Plan of Care Start Date 01/29/19 Plan of Care End Date 03/12/19 Therapeutic Interventions Therapeutic Interventions Balance Training Canalithic Repositioning Vestibular Rehabilitation Discharge Physical Therapy Discharge Reasons No Longer Attending PT Next Visit Focus/Plan Next Note Type Discharge Summary
== END 2019-03-12 11:40 | disposition home or self-care (01) ==
LOC: PHYS 15:52
PROVIDERS: PCP Family Medicine; Visit Provider Otolaryngology
DX: R42 Dizziness and giddiness (principal)
CPT/HCPCS: 97112; 97161

== ENCOUNTER → 2019-02-04 10:49 | Outpatient (CLI) | payer OTHER, MEDICAID, SELFPAY | PROVIDERS: PCP Family Medicine; Visit Provider Family Medicine ==

== ENCOUNTER → 2019-02-07 17:05 | Outpatient (CLI) | payer OTHER, MEDICAID, SELFPAY | PROVIDERS: PCP Family Medicine; Visit Provider Family Medicine | DX: R19.7 Diarrhea, unspecified (principal) | CPT/HCPCS: 87045; 87899 ==

== ENCOUNTER → 2019-03-05 10:27 | Outpatient (CLI) | payer OTHER, MEDICAID, SELFPAY ==
--- NOTE | 2019-03-05 10:30 | DI.US.S_ITS ---
PROCEDURE: US ABDOMEN COMPLETE INDICATIONS: ABD PAIN, N/V TECHNIQUE: Real-time scanning was performed of the abdominal and retroperitoneal organs, with image documentation. COMPARISON: [facility], [place], ABDOMEN COMPLETE, 02/22/2013, 21:34. FINDINGS: Liver: Liver is normal in size. Increased in echogenicity. Liver surface appears smooth. Gallbladder: Nondistended. No gallbladder wall thickening or pericholecystic fluid. No cholelithiasis. Biliary ducts: Intrahepatic bile ducts are non-dilated. Extrahepatic bile duct caliber measures 4 mm. Normal is 6-7 mm or less in diameter, or 10 mm or less post-cholecystectomy. Pancreas: Visualized portions of the pancreas are sonographically normal. Spleen: Spleen is normal in size and homogeneous in echotexture. Kidneys: Kidneys are normal in size and echotexture. Right kidney measures 10.9 cm long; left kidney measures 10.8 cm long. No hydronephrosis or nephrolithiasis. No solid masses. Aorta: Visualized aorta is normal in caliber at less than 3 cm. Iliacs: Not well-seen IVC: Intrahepatic inferior vena cava is patent. Miscellaneous: No free abdominal fluid. IMPRESSION: 1. No acute abnormality identified to explain the patient's symptoms. No acute cholecystitis. No gallstones. 2. Increased hepatic parenchymal echogenicity. This finding is commonly seen and hepatic steatosis but can also be seen in other forms of hepatocellular disease. Dictated by: Jordan Vallejo M.D. on 03/05/2019 at 12:33 Approved by: Jordan Vallejo M.D. on 03/05/2019 at 12:37
[2019-03-05 12:18] LABS: Hematocrit 37.9 % (36-46); Hemoglobin 11.8 g/dL (12.0-16.0); Mean Corpuscular HGB Conc 31.3 % (30-36); Mean Corpuscular Hemoglobin 24.7 PG (26-34); Mean Corpuscular Volume 79.2 fL (80-100); Platelet Count 288 X10^3/uL (150-400); Red Blood Cell Count 4.78 X10^6/uL (4.0-5.2); Red Cell Distribution Width 16.7 % (11.6-14.8); White Blood Cell Count 13.1 X10^3/uL (4.5-11.0)
[2019-03-05 13:08] LABS: TSH w/ Reflex to FT4 1.83 uIU/mL (0.47-4.68)
[2019-03-05 14:52] LABS: Neutrophils Absolute Manual 9825 /uL (3000-5900); RBC Morphology Normal Morphology; Total Cells Counted 100
== END ==
PROVIDERS: PCP Family Medicine; Visit Provider Nurse Practitioner
DX: R10.9 Unspecified abdominal pain (principal); R11.2 Nausea with vomiting, unspecified; R19.7 Diarrhea, unspecified; E04.1 Nontoxic single thyroid nodule
CPT/HCPCS: 36415; 76700; 84443; 85025

== ENCOUNTER → 2019-03-07 16:11 | Outpatient (CLI) | payer OTHER, MEDICAID, SELFPAY ==
[2019-03-07 16:25] LABS: RBC Urine None Seen (0-5/HPF)
[2019-03-07 16:38] LABS: Appearance Urine UA CLEAR; Bilirubin Urine UA NEGATIVE (NEGATIVE); Color Urine UA YELLOW; Glucose Urine UA NEGATIVE (Negative); Ketones Urine UA NEGATIVE (NEGATIVE); Leukocyte Esterase Urine UA NEGATIVE (NEGATIVE); Nitrite Urine UA NEGATIVE (Negative); Occult Blood Urine UA NEGATIVE (Negative); Protein Urine UA NEGATIVE (Negative); Specific Gravity Urine UA 1.025 (1.000-1.035); Urobilinogen Urine UA 0.2 E.U./dL (0.2)
[2019-03-07 16:49] LABS: Add Manual Diff / Slide Review NO; Basophils Absolute Auto 100 /uL (0-100); Basophils Percent Auto 0.5 % (0-2); Eosinophils Absolute Auto 300 /uL (0-450); Eosinophils Percent Auto 2.5 % (2-4); Hematocrit 38.3 % (36-46); Lymphocytes Absolute Auto 3100 /uL (1100-4500); Mean Corpuscular HGB Conc 31.2 % (30-36); Mean Corpuscular Hemoglobin 24.9 PG (26-34); Mean Corpuscular Volume 79.6 fL (80-100); Monocytes Absolute Auto 600 /uL (0-900); Monocytes Percent Auto 4.6 % (3-14); Neutrophils Absolute Auto 9700 /uL (1500-7000); Neutrophils Percent Auto 70.4 % (50-75); Platelet Count 286 X10^3/uL (150-400); Red Blood Cell Count 4.81 X10^6/uL (4.0-5.2); Red Cell Distribution Width 16.8 % (11.6-14.8); White Blood Cell Count 13.8 X10^3/uL (4.5-11.0)
[2019-03-07 17:00] LABS: Amorphous Sediment Urine 1+; Bacteria Urine Moderate (10-30); Culture Indicated Urine Cult Not Indicated; Mucus Urine 1+ (Negative); Squamous Epithelial Cell Urine 5-10 /HPF (0-5/HPF); WBC Urine 1-5/HPF (0-5/HPF)
== END ==
PROVIDERS: PCP Family Medicine; Visit Provider Nurse Practitioner
DX: D72.829 Elevated white blood cell count, unspecified (principal); R10.9 Unspecified abdominal pain; R11.2 Nausea with vomiting, unspecified; R19.7 Diarrhea, unspecified
CPT/HCPCS: 36415; 81001; 85025

== ENCOUNTER → 2019-03-07 16:32 | Outpatient (CLI) | payer OTHER, MEDICAID, SELFPAY ==
--- NOTE | 2019-03-07 16:35 | DI.RAD.S_ITS ---
PROCEDURE: XR CHEST 2V INDICATIONS: elevated WBCs TECHNIQUE: 2 views of the chest were acquired. COMPARISON: [facility], , XR CHEST 1V, 08/04/2018, 20:00. FINDINGS: Surgical changes and devices: None. Lungs and pleura: Lungs are clear. No pleural effusions or pneumothorax. Mediastinum: Mediastinal contours are normal. Heart size is normal. Bones and chest wall: No suspicious bony abnormalities. Soft tissues appear unremarkable. IMPRESSION: No acute disease Dictated by: Travis Capellan M.D. on 03/07/2019 at 17:14 Approved by: Travis Capellan M.D. on 03/07/2019 at 17:15
== END ==
PROVIDERS: PCP Family Medicine; Visit Provider Nurse Practitioner
DX: D72.829 Elevated white blood cell count, unspecified (principal); R11.2 Nausea with vomiting, unspecified; G47.33 Obstructive sleep apnea (adult) (pediatric)
CPT/HCPCS: 71046

== ENCOUNTER → 2019-04-21 07:54 | Outpatient (CLI) | payer OTHER, MEDICAID, SELFPAY ==
--- NOTE | 2019-04-21 07:55 | DI.NM.S_ITS ---
PROCEDURE: NM GASTRIC EMPTYING STUDY RADIOPHARMACEUTICAL: 1 mCi Tc-99m sulfur colloid in an egg sandwich. INDICATIONS: Nausea and vomiting with eating, abd pain and diarrhea TECHNIQUE: A Tc-99m labeled sulfur colloid labeled egg sandwich or oatmeal was served to the patient. Anterior and posterior planar images of the abdomen were obtained at 0 minutes and 30 minutes, then at hourly intervals up to 4 hours. The patient was upright and ambulating during the interval. COMPARISON: None. FINDINGS: The stomach has normal size, morphology, and position. There is normal emptying of solid gastric contents from the stomach by visual inspection. No gastroesophageal reflux is visualized. The percentage of tracer retained at specific time points are as follows: Time point Percent gastric retention Normal range 30 minutes 59% 70% or more 1 hour 43% 30% to 90% 2 hours 3% 60% or less 3 hours - 30% or less 4 hours - 10% or less IMPRESSION: More rapid gastric emptying than normal. Potential causes include early diabetes, cyclic vomiting syndrome, functional dyspepsia and postoperative states. Dictated by: Dino Stevens M.D. on 04/21/2019 at 11:51 Approved by: Dino Stevens M.D. on 04/21/2019 at 11:54
== END ==
PROVIDERS: PCP Family Medicine; Visit Provider Nurse Practitioner
DX: R11.2 Nausea with vomiting, unspecified (principal); R10.9 Unspecified abdominal pain; R19.7 Diarrhea, unspecified; E11.40 Type 2 diabetes mellitus with diabetic neuropathy, unspecified; E11.65 Type 2 diabetes mellitus with hyperglycemia
CPT/HCPCS: 78264; A9541

== ENCOUNTER → 2019-05-08 14:11 | Outpatient (CLI) | payer OTHER, MEDICAID, SELFPAY ==
[2019-05-08 14:37] LABS: Add Manual Diff / Slide Review NO; Basophils Absolute Auto 100 /uL (0-100); Basophils Percent Auto 0.8 % (0-2); Eosinophils Absolute Auto 300 /uL (0-450); Eosinophils Percent Auto 3.4 % (2-4); Hematocrit 33.9 % (36-46); Hemoglobin 10.8 g/dL (12.0-16.0); Lymphocytes Absolute Auto 2100 /uL (1100-4500); Lymphocytes Percent Auto 21.9 % (25-40); Mean Corpuscular Hemoglobin 25.1 PG (26-34); Mean Corpuscular Volume 78.5 fL (80-100); Monocytes Absolute Auto 500 /uL (0-900); Monocytes Percent Auto 5.1 % (3-14); Neutrophils Absolute Auto 6500 /uL (1500-7000); Neutrophils Percent Auto 68.8 % (50-75); Platelet Count 272 X10^3/uL (150-400); Red Blood Cell Count 4.32 X10^6/uL (4.0-5.2); Red Cell Distribution Width 15.7 % (11.6-14.8); White Blood Cell Count 9.5 X10^3/uL (4.5-11.0)
[2019-05-08 14:50] LABS: Hemoglobin A1C% w Est Avg Glu 8.2 % (4.0-6.0)
[2019-05-08 15:13] LABS: Erythrocyte Sedimentation Rate 69 MM/HR (0-20)
[2019-05-08 15:17] LABS: Alanine Aminotransferase 27 IU/L (9-52); Albumin Globulin Ratio 1.1 (1.0-2.8); Alkaline Phosphatase 115 U/L (38-126); Aspartate Aminotransferase 28 IU/L (14-36); BUN Creatinine Ratio 13.3 (6-22); Bilirubin Total 0.6 mg/dL (0.2-1.3); Blood Urea Nitrogen 12 mg/dL (7-17); C-Reactive Protein Quant 2.7 mg/dL (<1.0); Calcium 9.5 mg/dL (8.4-10.2); Carbon Dioxide 30 mmol/L (22-32); Chloride 102 mmol/L (98-107); Cholesterol 195 mg/dL (140-199); Estimated Glomerular Filt Rate > 60.0 mL/min (>60); Globulin 3.5 g/dL (1.7-4.1); Glucose 91 mg/dL (70-100); HDL Cholesterol 47 mg/dL (40-60); HEMOLYSIS < 15 (0-50); LDL Cholesterol Calculated 124 mg/dL (<100); Potassium 4.2 mmol/L (3.4-5.1); Sodium 140 mmol/L (137-145); Total Protein 7.5 g/dL (6.3-8.2); Triglycerides 121 mg/dL (35-150)
[2019-05-08 15:19] LABS: Rheumatoid Factor < 8.6 IU/mL (<12.0)
[2019-05-08 15:32] LABS: Free T3, Triiodothyronine Free 2.91 pg/mL (2.77-5.27); Free T4, Direct Thyroxine 1.17 ng/dL (0.78-2.19)
[2019-05-08 15:46] LABS: Thyroid Stimulating Hormone 2.27 uIU/mL (0.47-4.68)
[2019-05-10 14:42] LABS: Anti Thyroglobulin Antibody < 1 IU/mL (< 2); Thyroid Peroxidase Antibodies > 900 IU/mL (< 9)
== END ==
PROVIDERS: PCP Family Medicine; Visit Provider Nurse Practitioner
DX: E11.40 Type 2 diabetes mellitus with diabetic neuropathy, unspecified (principal); E11.65 Type 2 diabetes mellitus with hyperglycemia; E66.01 Morbid (severe) obesity due to excess calories; G47.33 Obstructive sleep apnea (adult) (pediatric); K58.9 Irritable bowel syndrome, unspecified; E10.10 Type 1 diabetes mellitus with ketoacidosis without coma; R63.5 Abnormal weight gain; R10.9 Unspecified abdominal pain; R19.7 Diarrhea, unspecified
CPT/HCPCS: 36415; 80053; 80061; 83036; 84439; 84443; 84481; 85025; 85651; 86140; 86376; 86430; 86800

== ENCOUNTER → 2019-05-19 07:31 | Outpatient (CLI) | payer OTHER, MEDICAID, SELFPAY ==
--- NOTE | 2019-05-19 07:33 | DI.NM.S_ITS ---
PROCEDURE: NM UPTAKE AND SCAN RADIOPHARMACEUTICAL: 397 ?Ci I-123 sodium iodide by mouth. INDICATIONS: elevated thyroid peroxidase antibody test TECHNIQUE: I-123 sodium iodide was administered orally. Anterior neck images were obtained, and iodine uptake by the thyroid gland calculated using dry cell and battery assembler's software. COMPARISON: None. FINDINGS: Morphology: The thyroid gland has normal morphology and uniform activity. No 'cold' or 'hot' thyroid nodules are identified. Uptake: 6 hour thyroid uptake is 15.9%; normal ranges are from 6-18%. 24 hour thyroid uptake is 31.5%; normal ranges are from 10-30%. IMPRESSION: Normal thyroid scan bilaterally. Thyroid uptake values are normal at the 6 hour time period, and minimally elevated above the upper limits of normal at the 24-hour time. (Upper limits of normal is 30%, 24 hour uptake in this patient is 31.5%). Dictated by: Bairon Villasenor M.D. on 05/20/2019 at 13:08 Approved by: Bairon Villasenor M.D. on 05/20/2019 at 13:12
== END ==
PROVIDERS: PCP Family Medicine; Visit Provider Nurse Practitioner
DX: R79.89 Other specified abnormal findings of blood chemistry (principal)
CPT/HCPCS: 78014; A9516

== ENCOUNTER → 2019-05-26 16:06 | Outpatient (CLI) | payer OTHER, MEDICAID, SELFPAY ==
[2019-05-26 17:27] LABS: Erythrocyte Sedimentation Rate 65 MM/HR (0-20)
[2019-05-26 17:34] LABS: C-Reactive Protein Quant 3.9 mg/dL (<1.0)
[2019-05-26 18:20] LABS: Bacteria Urine None Seen
[2019-05-26 19:09] LABS: Appearance Urine UA CLEAR; Bilirubin Urine UA NEGATIVE (NEGATIVE); Color Urine UA YELLOW; Glucose Urine UA NEGATIVE (Negative); Ketones Urine UA NEGATIVE (NEGATIVE); Leukocyte Esterase Urine UA NEGATIVE (NEGATIVE); Nitrite Urine UA NEGATIVE (Negative); Occult Blood Urine UA NEGATIVE (Negative); Protein Urine UA NEGATIVE (Negative); Urobilinogen Urine UA 0.2 E.U./dL (0.2)
[2019-05-26 19:12] LABS: pH Urine UA 5.5 (4.5-8.0)
[2019-05-26 19:35] LABS: Culture Indicated Urine Cult Not Indicated; RBC Urine 0-1/HPF (0-5/HPF); Squamous Epithelial Cell Urine 1-5 /HPF (0-5/HPF); WBC Urine 0-1/HPF (0-5/HPF)
[2019-05-30 13:36] LABS: Thyroid Peroxidase Antibodies 635 IU/mL (< 9)
== END ==
PROVIDERS: PCP Family Medicine; Visit Provider Nurse Practitioner
DX: E10.10 Type 1 diabetes mellitus with ketoacidosis without coma (principal); E11.42 Type 2 diabetes mellitus with diabetic polyneuropathy; E66.01 Morbid (severe) obesity due to excess calories; G47.33 Obstructive sleep apnea (adult) (pediatric); R10.9 Unspecified abdominal pain; R19.7 Diarrhea, unspecified; R63.5 Abnormal weight gain; N39.0 Urinary tract infection, site not specified
CPT/HCPCS: 36415; 81001; 85651; 86140; 86376

== ENCOUNTER → 2019-06-04 12:15 | Outpatient (CLI) | payer OTHER, MEDICAID, SELFPAY ==
--- NOTE | 2019-06-04 12:19 | DI.RAD.S_ITS ---
PROCEDURE: XR HIP W PEL IF DONE RT 2V INDICATIONS: right hip pain TECHNIQUE: AP view of the pelvis with lateral view of the right hip was obtained. COMPARISON: [facility], , HIP 2V LEFT, 04/15/2009, 12:25. FINDINGS: Bones: Moderate multilevel degenerative changes of the imaged lower lumbar spine. Mild right greater than left bilateral hip joint degenerative changes as evidenced by periarticular sclerosis and osteophyte formation. No acute fracture dislocation. Soft tissues: Surgical clips project over the pelvis and sacroiliac joints bilaterally. Imaged bowel gas pattern appears nonobstructive. IMPRESSION: Mild right greater than left bilateral hip joint degenerative changes. No acute fracture or dislocation of the right hip. Dictated by: Guillermo Krause M.D. on 06/04/2019 at 17:22 Approved by: Guillermo Krause M.D. on 06/04/2019 at 17:24
== END ==
PROVIDERS: PCP Family Medicine; Visit Provider Family Medicine
DX: M25.551 Pain in right hip (principal); M25.752 Osteophyte, left hip; M25.751 Osteophyte, right hip
CPT/HCPCS: 73502

== ENCOUNTER → 2019-09-01 15:20 | Outpatient (CLI) | payer OTHER, MEDICAID, SELFPAY ==
[2019-09-01 16:25] LABS: Hemoglobin A1C% w Est Avg Glu 9.2 % (4.0-6.0)
[2019-09-01 16:58] LABS: BUN Creatinine Ratio 12.7 (6-22); Blood Urea Nitrogen 14 mg/dL (7-17); Calcium 9.6 mg/dL (8.4-10.2); Carbon Dioxide 28 mmol/L (22-32); Chloride 100 mmol/L (98-107); Glucose 102 mg/dL (70-100); HEMOLYSIS < 15 (0-50); Potassium 3.6 mmol/L (3.4-5.1); Sodium 140 mmol/L (137-145)
[2019-09-01 18:40] LABS: Creatinine Urine Random 138.5 mg/dL
[2019-09-01 18:44] LABS: Microalbumin Urine Random 0.7 mg/dL (0-1.6)
== END ==
PROVIDERS: PCP Family Medicine; Visit Provider Family Medicine
DX: E11.40 Type 2 diabetes mellitus with diabetic neuropathy, unspecified (principal); E11.65 Type 2 diabetes mellitus with hyperglycemia
CPT/HCPCS: 36415; 80048; 82043; 82570; 83036

== ENCOUNTER → 2020-01-22 13:55 | Outpatient (CLI) | payer OTHER, MEDICAID, SELFPAY ==
--- NOTE | 2020-01-22 13:57 | DI.US.S_ITS ---
PROCEDURE: US EXTREMITY NONVASC UPPER LT INDICATIONS: LEFT SHOULDER SWELLING TECHNIQUE: Real-time scanning was performed of the left posterior shoulder, with image documentation. COMPARISON: None. FINDINGS: No fluid collection or mass seen involving the left posterior shoulder in the area of interest. IMPRESSION: No sonographic abnormality visualized. Dictated by: Maverick MCINTYRE Interpreted: Tawana Dyer MD on 01/22/2020 at 15:32 Approved by: Tawana Dyer MD, PhD on 01/22/2020 at 16:47
== END ==
PROVIDERS: PCP Family Medicine; Referring Provider Family Medicine; Visit Provider Family Medicine
DX: M25.512 Pain in left shoulder (principal); M25.412 Effusion, left shoulder
CPT/HCPCS: 76882

== ENCOUNTER → 2020-02-09 12:53 | Outpatient (CLI) | payer OTHER, MEDICAID, SELFPAY ==
[2020-02-09 13:48] LABS: Add Manual Diff / Slide Review NO; Basophils Absolute Auto 0 /uL (0-100); Basophils Percent Auto 0.5 % (0-2); Eosinophils Absolute Auto 200 /uL (0-450); Eosinophils Percent Auto 2.2 % (2-4); Hematocrit 35.1 % (36-46); Hemoglobin 10.9 g/dL (12.0-16.0); Lymphocytes Absolute Auto 2400 /uL (1100-4500); Lymphocytes Percent Auto 26.9 % (25-40); Mean Corpuscular Hemoglobin 23.7 PG (26-34); Mean Corpuscular Volume 76.5 fL (80-100); Monocytes Absolute Auto 500 /uL (0-900); Monocytes Percent Auto 5.1 % (3-14); Neutrophils Absolute Auto 5900 /uL (1500-7000); Neutrophils Percent Auto 65.3 % (50-75); Platelet Count 255 X10^3/uL (150-400); Red Blood Cell Count 4.59 X10^6/uL (4.0-5.2); Red Cell Distribution Width 15.8 % (11.6-14.8)
[2020-02-09 14:14] LABS: Hemoglobin A1C% w Est Avg Glu 7.8 % (4.0-6.0)
[2020-02-09 14:41] LABS: Alanine Aminotransferase 16 IU/L (<35); Albumin 3.9 g/dL (3.5-5.0); Albumin Globulin Ratio 1.2 (1.0-2.8); Alkaline Phosphatase 93 U/L (38-126); Aspartate Aminotransferase 24 IU/L (14-36); BUN Creatinine Ratio 14.6 (6-22); Bilirubin Total 0.6 mg/dL (0.2-1.3); Blood Urea Nitrogen 12 mg/dL (7-17); Calcium 9.9 mg/dL (8.4-10.2); Carbon Dioxide 29 mmol/L (22-32); Chloride 104 mmol/L (98-107); Cholesterol 188 mg/dL (140-199); Estimated Glomerular Filt Rate > 60.0 mL/min (>60); Globulin 3.3 g/dL (1.7-4.1); Glucose 134 mg/dL (70-100); HDL Cholesterol 35 mg/dL (40-60); HEMOLYSIS < 15 (0-50); LDL Cholesterol Calculated 133 mg/dL (<100); Potassium 4.4 mmol/L (3.4-5.1); Sodium 140 mmol/L (137-145); Total Protein 7.2 g/dL (6.3-8.2); Triglycerides 100 mg/dL (35-150)
== END ==
PROVIDERS: PCP Family Medicine; Referring Provider Family Medicine; Visit Provider Family Medicine
DX: E11.9 Type 2 diabetes mellitus without complications (principal)
CPT/HCPCS: 36415; 80053; 80061; 83036; 85025

== ENCOUNTER → 2020-02-16 14:19 | Outpatient (CLI) | payer OTHER, MEDICAID, SELFPAY ==
[2020-02-16 16:01] LABS: HEMOLYSIS < 15 (0-50); Iron 63 ug/dL (37-170)
[2020-02-16 16:12] LABS: Percent Iron Saturation 19 % (15-50); Total Iron Binding Capacity 333 ug/dL (265-497); Transferrin 267 mg/dL (206-381)
[2020-02-16 16:37] LABS: Ferritin 47 ng/mL (11-264)
[2020-02-17 14:26] LABS: Vitamin B12 834 pg/mL (239-931)
== END ==
PROVIDERS: PCP Family Medicine; Referring Provider Family Medicine; Visit Provider Family Medicine
DX: D64.9 Anemia, unspecified (principal)
CPT/HCPCS: 36415; 82607; 82728; 83540; 83550

== ENCOUNTER → 2020-06-16 15:07 | Outpatient (CLI) | payer OTHER, MEDICAID, SELFPAY ==
[2020-06-16 15:37] LABS: Hemoglobin A1C% w Est Avg Glu 9.4 % (4.0-6.0)
== END ==
PROVIDERS: PCP Family Medicine; Referring Provider Family Medicine; Visit Provider Family Medicine
DX: E11.40 Type 2 diabetes mellitus with diabetic neuropathy, unspecified (principal); E11.65 Type 2 diabetes mellitus with hyperglycemia
CPT/HCPCS: 36415; 83036

== ENCOUNTER → 2020-07-07 14:02 | Outpatient (CLI) | payer OTHER, MEDICAID, SELFPAY | PROVIDERS: PCP Family Medicine; Referring Provider Family Medicine; Visit Provider Family Medicine | DX: Z12.39 Encounter for other screening for malignant neoplasm of breast (principal); N63.20 Unspecified lump in the left breast, unspecified quadrant; Z53.9 Procedure and treatment not carried out, unspecified reason ==

== ENCOUNTER 2020-07-09 11:15 | Outpatient (RCR) | payer OTHER, MEDICAID, SELFPAY ==
--- NOTE | 2019-09-04 17:30 | PT.OPPOC ---
Physical, Occupational & Speech Therapy At [facility] Current Diagnoses Pain in right hip (09/04/19) Stiffness of right hip, not elsewhere classified (09/04/19) Weakness (09/04/19) Visit Care Team Role Provider Type Wilian Booth MD Attending Provider Physician Primary Care Provider Specialty: Family Practice Address: [address] [place] [address], [facility] Email: [email or web address] Plan Of Care PT-OP-T Assessment and Plan Start: 09/05/19 13:49 Freq: Status: Active Protocol: Document 09/04/19 16:45 DCW (Rec: 09/05/19 14:26 DCW [id number]) Physical Therapy Assessment Rehab Potential Rehabilitation Potential Good Evaluation Complexity Number of Personal Factors/Comorbidities 3 or More Number of Body Systems Impaired 1-2 Clinical Presentation at Evaluation Stable Impairments Impairments Functional Mobility,Pain,Soft Tissue Mobility,Strength,Tone Goals Five Impairment LEFS score of 27/80 Volunteer Manager Goal (LTG) LEFS score of 35/80 LTG Duration 11/03/19 Four Impairment Right hip weakness Volunteer Manager Goal (LTG) Patient will exhibit 1/2 grade increase in MMT to right adductors for improvement of functional weight bearing mobility. LTG Duration 11/03/19 Three Impairment Pt unable to stand longer than 10 minutes without increased symptoms Assisted Goal (LTG) Pt to be able to stand 25 minutes with no increase in symptoms LTG Duration 11/03/19 Two Impairment Pt has difficulty donning and doffing footwear Volunteer Manager Goal (LTG) Pt to exhibit moderateadductor tone to allow her to don and doff footwear without assistance LTG Duration 11/03/19 One Impairment Pt does not have an appropriate home exercise program Short Term Goal (STG) Pt to be independent and compliant with an appropriate home exercise program STG Duration 10/05/19 Assessment Summary Assessment Pt presents with signs and symptoms consistent with an Adductor strain. Pt has severe tone and tenderness along the entire length of her right adductors, and her description of pain location is consistent with the location of the origin of many of the muscles that make up this muscle group. Pt should benefit from skilled therapy focusing on STM and flexibility training to decrease tone, hip strengthening, and pain- control modalities. Physical Therapy Plan Frequency and Duration Frequency of Treatment 2x/Week Duration of Treatment 2 months Plan of Care Start Date 09/04/19 Plan of Care End Date 11/03/19 Therapeutic Interventions Therapeutic Interventions Home Exercise Program,Joint Mobilizations,Manual Therapy, Patient/Caregiver Education, Self-Care/Home Management,Soft Tissue Mobilization, Therapeutic Exercises Modalities Cold Pack/Ice Massage,Electric Stimulation,Hot Packs Next Visit Focus/Plan Next Note Type Treatment Note Next Visit Plan STM, Flexibility/soft tissue stretching, hip strengthening Plan of Care Dates Plan of Care Start Date 09/04/19 Plan of Care End Date 11/03/19 Electronically Signed by: Dion Riggins, PT 09/05/19 [id number] Please Sign and Return: I have reviewed this Plan of Care and certify that the skilled therapy services above are required to meet the patient?s needs. Physician Signature Date Printed Name and Credentials Clinical Instructor Signature Printed Name and Credentials
--- NOTE | 2019-09-04 17:30 | PT.OIE ---
Current Diagnoses Pain in right hip (09/04/19) Stiffness of right hip, not elsewhere classified (09/04/19) Weakness (09/04/19) Past Medical History (Last Reviewed 02/02/19 @ 20:14 by HEMA Rodriguez) Abnormal chest xray (Chronic ~2002) Acne (Chronic ~2004) Anemia (Chronic) Ankle pain (Chronic ~2012) Asthma (Chronic ~1997) Carpal tunnel syndrome (Chronic ~1996) Diabetes mellitus (Chronic) Eczema (Chronic ~1997) Edema (Chronic) Foot pain (Chronic ~2012) Fractures (Chronic ~1987) Gastric ulcer (Chronic) Headache (Chronic) Leg injury (Chronic ~2014) Morbid obesity with body mass index of 40.0-49.9 (Chronic) Obstructive sleep apnea of adult (Chronic) Sarcoidosis (Chronic ~2004) Shoulder pain (Chronic ~2001) Uterine cancer (Chronic) Vision disorder (Chronic) Past Surgical History (Last Reviewed 08/04/18 @ 21:12 by HEMA Dexter) Anesthesia (Resolved) History of carpal tunnel repair Status post biopsy Status post biopsy Status post colonoscopy Status post hemorrhoidectomy Status post hysterectomy Visit Care Team Role Provider Type Wilian Booth MD Attending Provider Physician Primary Care Provider Specialty: [facility] Practice Address: [address] [place] [address], [facility] Email: [email or web address] Physical Therapy Initial Evaluation PT-OP-A Visit Information Start: 09/05/19 13:49 Freq: Status: Active Protocol: Document 09/04/19 16:45 DCW (Rec: 09/05/19 14:26 DCW [id number]) Out-Patient Physical Therapy Visit Information Visit Information Visit Type Initial Evaluation Visit Start Time 16:45 Visit Stop Time 17:25 Total Visit Minutes 40 Visit Number 1 Number of ATOMIC PROCESS ENGINEER Visits 0 Evaluation Information Evaluation Date 09/04/19 PT-OP-B Current Condition Start: 09/05/19 13:49 Freq: Status: Active Protocol: Document 09/04/19 16:45 DCW (Rec: 09/05/19 14:26 DCW [id number]) Current Condition History of Current Condition Onset Date One month Current Complaints proximal, medial hip/groin pain History of Current Condition Pt is a 59 year old female presenting with a one month history of pain at her proximal medial right hip/ groin. Pt reports she was having slight discomfort in the area for a few weeks, and then slept with a heating pad on the area one night, and woke up in much more pain. Pt reports sh has been diagnosed with severe arthritis and sarcoidosis, which she has recently started medication for. Pt reports she is unable to sit with her legs crossed, and needs help occasionally to don or doff her socks and shoes. Pt also notes that she is unable to stand longer than 10 minutes, but that is not a big priority for me. PT-OP-C Subjective Start: 09/05/19 13:49 Freq: Status: Active Protocol: Document 09/04/19 16:45 DCW (Rec: 09/05/19 14:26 DCW [id number]) OP-PT Subjective Patient Comments Patient Comments I've been doing some exercises I learned in therapy before, they seem to be helping a little bit. Especially the one wherre I squeeze a ball between my knees. Patient Reported Progress Same Patient Questionnaires Lower Extremity Functional Scale LEFS Score 27/80 = 33.75% LEFS Impairment 60 to 79% Impaired (Score 17- 31) OP-PT Pain Assessment Pain Assessment Grid Paper Pain Assessment Grid Completed Yes Location Right Medial Proximal Groin Intensity 4 Scale Used Numeric (1 - 10) Description Tender,Tightness PT-OP-F Manual Assessment Start: 09/05/19 13:49 Freq: Status: Active Protocol: Document 09/04/19 16:45 DCW (Rec: 09/05/19 14:26 DCW [id number]) Manual Assessments Soft Tissue Assessment Soft Tissue Mobility Assessment Severe tone and Tenderness to Palpation 4/4: Palpation not allowed along right adductors, worsening from insertion to origin. Severe tone and Tenderness to Palpation 3/4: Wincing and withdraw along bilateral psoas , R>L Mild complaints of pain and tenderness along B ITB, L Adductors, B Piriformis Joint Mobility Assessment Joint Mobility Assessment Passive hip mobility largely WNL bilaterally PT-OP-L Special Tests Start: 09/05/19 13:49 Freq: Status: Active Protocol: Document 09/04/19 16:45 DCW (Rec: 09/05/19 14:26 DCW [id number]) Special Tests Lumbar Spine Special Tests Manual Traction Comments R long-axis traction provided substantial relief for pt Hip Special Tests Straight Leg Raise Test Results Negative Piriformis Test Results Negative SANDRA Test Results Pain in R proximal medial hip Scour Test Test Results Negative PT-OP-M Strength Start: 09/05/19 13:49 Freq: Status: Active Protocol: Document 09/04/19 16:45 DCW (Rec: 09/05/19 14:26 DCW [id number]) Hip Strength Hip Manual Muscle Testing Right Flexion (L2) 4- Good- Abduction 4- Good- Adduction 3+ Fair+ Left Flexion (L2) 4+ Good+ Abduction 4+ Good+ Adduction 4+ Good+ Knee Strength Knee Manual Muscle Testing Left Flexion (S2) 4+ Good+ Extension (L3) 4+ Good+ Right Flexion (S2) 4 Good Extension (L3) 4 Good Ankle/Foot Strength Ankle and Foot Manual Muscle Testing Right Dorsiflexion (L4) 4+ Good+ Left Dorsiflexion (L4) 4+ Good+ PT-OP-Q Treatments Start: 09/05/19 13:49 Freq: Status: Active Protocol: Document 09/04/19 16:45 DCW (Rec: 09/05/19 14:26 DCW [id number]) Therapeutic Exercises Supine Exercises 1 Supine Exercise Name Adductor stretch /c strap Side right Standing Exercises 1 Standing Exercise Name Standing adductor stretch - lateral lunge Side right PT-OP-T Assessment and Plan Start: 09/05/19 13:49 Freq: Status: Active Protocol: Document 09/04/19 16:45 DCW (Rec: 09/05/19 14:26 DC [id number]) Physical Therapy Assessment Rehab Potential Rehabilitation Potential Good Evaluation Complexity Number of Personal Factors/Comorbidities 3 or More Number of Body Systems Impaired 1-2 Clinical Presentation at Evaluation Stable Impairments Impairments Functional Mobility,Pain,Soft Tissue Mobility,Strength,Tone Goals Five Impairment LEFS score of 27/80 Long-Term Goal (LTG) LEFS score of 35/80 LTG Duration 11/03/19 Four Impairment Right hip weakness Supervisor Fishing Goal (LTG) Patient will exhibit 1/2 grade increase in MMT to right adductors for improvement of functional weight bearing mobility. LTG Duration 11/03/19 Three Impairment Pt unable to stand longer than 10 minutes without increased symptoms Supervisor Fishing Goal (LTG) Pt to be able to stand 25 minutes with no increase in symptoms LTG Duration 11/03/19 Two Impairment Pt has difficulty donning and doffing footwear Supervisor Fishing Goal (LTG) Pt to exhibit moderate adductor tone to allow her to don and doff footwear without assistance LTG Duration 11/03/19 One Impairment Pt does not have an appropriate home exercise program Short Term Goal (STG) Pt to be independent and compliant with an appropriate home exercise program STG Duration 10/05/19 Assessment Summary Assessment Pt presents with signs and symptoms consistent with an Adductor strain. Pt has severe tone and tenderness along the entire length of her right adductors, and her description of pain location is consistent with the location of the origin of many of the muscles that make up this muscle group. Pt should benefit from skilled therapy focusing on STM and flexibility training to decrease tone, hip strengthening, and pain- control modalities. Physical Therapy Plan Frequency and Duration Frequency of Treatment 2x/Week Duration of Treatment 2 months Plan of Care Start Date 09/04/19 Plan of Care End Date 11/03/19 Therapeutic Interventions Therapeutic Interventions Home Exercise Program,Joint Mobilizations,Manual Therapy, Patient/Caregiver Education, Self-Care/Home Management,Soft Tissue Mobilization, Therapeutic Exercises Modalities Cold Pack/Ice Massage,Electric Stimulation,Hot Packs Next Visit Focus/Plan Next Note Type Treatment Note Next Visit Plan STM, Flexibility/soft tissue stretching, hip strengthening
--- NOTE | 2019-09-11 16:18 | PT-OP ANOTE ---
Pt no-showed to her appointment on 09/11/19
--- NOTE | 2019-09-15 13:43 | PT.OTN ---
Current Diagnoses Pain in right hip (09/15/19) Stiffness of right hip, not elsewhere classified (09/15/19) Weakness (09/15/19) Physical Therapy Treatment Note PT-OP-A Visit Information Start: 09/05/19 13:49 Freq: Status: Active Protocol: Document 09/15/19 12:05 DCW (Rec: 09/15/19 13:43 DCW [id number]) Out-Patient Physical Therapy Visit Information Visit Information Visit Type Treatment Note Visit Note 5 min late Visit Start Time 12:05 Visit Stop Time 12:45 Total Visit Minutes 40 Visit Number 2 Number of HYDRAULIC ROCKBREAKER OPERATOR Visits 0 Evaluation Information Evaluation Date 09/04/19 PT-OP-B Current Condition Start: 09/05/19 13:49 Freq: Status: Active Protocol: Document 09/04/19 16:45 DCW (Rec: 09/05/19 14:26 DCW [id number]) Current Condition History of Current Condition Onset Date One month Current Complaints proximal, medial hip/groin pain History of Current Condition Pt is a 59 year old female presenting with a one month history of pain at her proximal medial right hip/ groin. Pt reports she was having slight discomfort in the area for a few weeks, and then slept with a heating pad on the area one night, and woke up in much more pain. Pt reports sh has been diagnosed with severe arthritis and sarcoidosis, which she has recently started medication for. Pt reports she is unable to sit with her legs crossed, and needs help occasionally to don or doff her socks and shoes. Pt also notes that she is unable to stand longer than 10 minutes, but that is not a big priority for me. PT-OP-C Subjective Start: 09/05/19 13:49 Freq: Status: Active Protocol: Document 09/15/19 12:05 DCW (Rec: 09/15/19 13:43 DCW [id number]) OP-PT Subjective Patient Comments Patient Comments It's been getting better. I can bend my leg further than I have been able to in over the past few weeks. It's still somewhat painful, but it's getting better. PT-OP-F Manual Assessment Start: 09/05/19 13:49 Freq: Status: Active Protocol: Document 09/04/19 16:45 DCW (Rec: 09/05/19 14:26 DCW [id number]) Manual Assessments Soft Tissue Assessment Soft Tissue Mobility Assessment Severe tone and Tenderness to Palpation 4/4: Palpation not allowed along right adductors, worsening from insertion to origin. Severe tone and Tenderness to Palpation 3/4: Wincing and withdraw along bilateral psoas , R>L Mild complaints of pain and tenderness along B ITB, L Adductors, B Piriformis Joint Mobility Assessment Joint Mobility Assessment Passive hip mobility largely WNL bilaterally PT-OP-L Special Tests Start: 09/05/19 13:49 Freq: Status: Active Protocol: Document 09/04/19 16:45 DCW (Rec: 09/05/19 14:26 DCW [id number]) Special Tests Lumbar Spine Special Tests Manual Traction Comments R long-axis traction provided substantial relief for pt Hip Special Tests Straight Leg Raise Test Results Negative Piriformis Test Results Negative SANDRA Test Results Pain in R proximal medial hip Scour Test Test Results Negative PT-OP-M Strength Start: 09/05/19 13:49 Freq: Status: Active Protocol: Document 09/04/19 16:45 DCW (Rec: 09/05/19 14:26 DC [id number]) Hip Strength Hip Manual Muscle Testing Right Flexion (L2) 4- Good- Abduction 4- Good- Adduction 3+ Fair+ Left Flexion (L2) 4+ Good+ Abduction 4+ Good+ Adduction 4+ Good+ Knee Strength Knee Manual Muscle Testing Left Flexion (S2) 4+ Good+ Extension (L3) 4+ Good+ Right Flexion (S2) 4 Good Extension (L3) 4 Good Ankle/Foot Strength Ankle and Foot Manual Muscle Testing Right Dorsiflexion (L4) 4+ Good+ Left Dorsiflexion (L4) 4+ Good+ PT-OP-Q Treatments Start: 09/05/19 13:49 Freq: Status: Active Protocol: Document 09/15/19 12:05 DCW (Rec: 09/15/19 13:43 DCW [id number]) Therapeutic Exercises Supine Exercises 4 Supine Exercise Name Low trunk rotations Side bilateral 3 Supine Exercise Name SLR /c ER Side bilateral Resistance 4# Reps/Minutes 2x10 2 Supine Exercise Name Hamstring Stretch Side bilateral 1 Supine Exercise Name Adductor stretch Side bilateral Sidelying Exercises 3 Sidelying Exercise Name Reverse Clam Shell Side bilateral Resistance 4# 2 Sidelying Exercise Name Clam Shell Side bilateral 1 Sidelying Exercise Name Abduction Side bilateral Resistance 4# Reps/Minutes 2x6 Manual Therapy Treatment Soft Tissue Mobilization 1 Body Location R Adductor Mobilization Type Strumming,Sustained Pressure, Trigger Point Release Intensity/Depth Superficial Body Position Hooklying PT-OP-T Assessment and Plan Start: 09/05/19 13:49 Freq: Status: Active Protocol: Document 09/15/19 12:05 DCW (Rec: 09/15/19 13:43 DCW [id number]) Physical Therapy Assessment Impairments Impairments Functional Mobility,Pain,Soft Tissue Mobility,Strength,Tone Goals Five Impairment LEFS score of 27/80 Penitentiary Goal (LTG) LEFS score of 35/80 LTG Duration 11/03/19 Four Impairment Right hip weakness Rf Test Technician Goal (LTG) Patient will exhibit 1/2 grade increase in MMT to right adductors for improvement of functional weight bearing mobility. LTG Duration 11/03/19 Three Impairment Pt unable to stand longer than 10 minutes without increased symptoms Penitentiary Goal (LTG) Pt to be able to stand 25 minutes with no increase in symptoms LTG Duration 11/03/19 Two Impairment Pt has difficulty donning and doffing footwear Rf Test Technician Goal (LTG) Pt to exhibit moderateadductor tone to allow her to don and doff footwear without assistance LTG Duration 11/03/19 One Impairment Pt does not have an appropriate home exercise program Short Term Goal (STG) Pt to be independent and compliant with an appropriate home exercise program STG Duration 10/05/19 Assessment Summary Assessment Pt has substantial verbal and physical reaction to fairly mild STM, but acknowledges that she knows it will help, so keep it up. Physical Therapy Plan Frequency and Duration Frequency of Treatment 2x/Week Duration of Treatment 2 months Plan of Care Start Date 09/04/19 Plan of Care End Date 11/03/19 Therapeutic Interventions Therapeutic Interventions Home Exercise Program,Joint Mobilizations,Manual Therapy, Patient/Caregiver Education, Self-Care/Home Management,Soft Tissue Mobilization, Therapeutic Exercises Modalities Cold Pack/Ice Massage,Electric Stimulation,Hot Packs Next Visit Focus/Plan Next Note Type Treatment Note Next Visit Plan STM, Flexibility/soft tissue stretching, hip strengthening
--- NOTE | 2019-09-18 17:38 | PT-OP ANOTE ---
Pt no-showed to her 09/18/19 appointment
--- NOTE | 2019-09-22 10:29 | PT.OTN ---
Current Diagnoses Pain in right hip (09/22/19) Stiffness of right hip, not elsewhere classified (09/22/19) Weakness (09/22/19) Physical Therapy Treatment Note PT-OP-A Visit Information Start: 09/05/19 13:49 Freq: Status: Active Protocol: Document 09/22/19 09:45 DCW (Rec: 09/22/19 10:28 DCW [id number]) Out-Patient Physical Therapy Visit Information Visit Information Visit Type Treatment Note Visit Start Time 09:45 Visit Stop Time 10:30 Total Visit Minutes 45 Visit Number 3 Number of DIRECTOR PARK Visits 0 Evaluation Information Evaluation Date 09/04/19 PT-OP-B Current Condition Start: 09/05/19 13:49 Freq: Status: Active Protocol: Document 09/04/19 16:45 DCW (Rec: 09/05/19 14:26 DCW [id number]) Current Condition History of Current Condition Onset Date One month Current Complaints proximal, medial hip/groin pain History of Current Condition Pt is a 59 year old female presenting with a one month history of pain at her proximal medial right hip/ groin. Pt reports she was having slight discomfort in the area for a few weeks, and then slept with a heating pad on the area one night, and woke up in much more pain. Pt reports sh has been diagnosed with severe arthritis and sarcoidosis, which she has recently started medication for. Pt reports she is unable to sit with her legs crossed, and needs help occasionally to don or doff her socks and shoes. Pt also notes that she is unable to stand longer than 10 minutes, but that is not a big priority for me. PT-OP-C Subjective Start: 09/05/19 13:49 Freq: Status: Active Protocol: Document 09/22/19 09:45 DCW (Rec: 09/22/19 10:28 DCW [id number]) OP-PT Subjective Patient Comments Patient Comments Pt reports her hip is starting to feel a lot better, felt she had more movement, she was able to put her shoe on standing up, and is now able to cross her legs, something she was previously unable to do. Patient Reported Progress Improving PT-OP-F Manual Assessment Start: 09/05/19 13:49 Freq: Status: Active Protocol: Document 09/04/19 16:45 DCW (Rec: 09/05/19 14:26 DCW [id number]) Manual Assessments Soft Tissue Assessment Soft Tissue Mobility Assessment Severe tone and Tenderness to Palpation 4/4: Palpation not allowed along right adductors, worsening from insertion to origin. Severe tone and Tenderness to Palpation 3/4: Wincing and withdraw along bilateral psoas , R>L Mild complaints of pain and tenderness along B ITB, L Adductors, B Piriformis Joint Mobility Assessment Joint Mobility Assessment Passive hip mobility largely WNL bilaterally PT-OP-L Special Tests Start: 09/05/19 13:49 Freq: Status: Active Protocol: Document 09/04/19 16:45 DCW (Rec: 09/05/19 14:26 DCW [id number]) Special Tests Lumbar Spine Special Tests Manual Traction Comments R long-axis traction provided substantial relief for pt Hip Special Tests Straight Leg Raise Test Results Negative Piriformis Test Results Negative SANDRA Test Results Pain in R proximal medial hip Scour Test Test Results Negative PT-OP-M Strength Start: 09/05/19 13:49 Freq: Status: Active Protocol: Document 09/04/19 16:45 DCW (Rec: 09/05/19 14:26 DCW [id number]) Hip Strength Hip Manual Muscle Testing Right Flexion (L2) 4- Good- Abduction 4- Good- Adduction 3+ Fair+ Left Flexion (L2) 4+ Good+ Abduction 4+ Good+ Adduction 4+ Good+ Knee Strength Knee Manual Muscle Testing Left Flexion (S2) 4+ Good+ Extension (L3) 4+ Good+ Right Flexion (S2) 4 Good Extension (L3) 4 Good Ankle/Foot Strength Ankle and Foot Manual Muscle Testing Right Dorsiflexion (L4) 4+ Good+ Left Dorsiflexion (L4) 4+ Good+ PT-OP-Q Treatments Start: 09/05/19 13:49 Freq: Status: Active Protocol: Document 09/22/19 09:45 DCW (Rec: 09/22/19 10:28 DCW [id number]) Therapeutic Exercises Supine Exercises 4 Supine Exercise Name Low trunk rotations Side bilateral Equipment Used Blue 45 cm T-ball 3 Supine Exercise Name SLR /c ER Side bilateral Resistance 5# Reps/Minutes 2x10 2 Supine Exercise Name Hamstring Stretch /c strap Side bilateral Comments lateral pull on foot into pronation 1 Supine Exercise Name Adductor stretch Side bilateral Sidelying Exercises 3 Sidelying Exercise Name Reverse Clam Shell Side bilateral Resistance 5# 2 Sidelying Exercise Name Clam Shell Side bilateral 1 Sidelying Exercise Name Abduction Side bilateral Resistance 5# Reps/Minutes 2x10 Manual Therapy Treatment Soft Tissue Mobilization 2 Body Location R Psoas Mobilization Type Strumming,Sustained Pressure Body Position Hooklying 1 Body Location R Adductor Mobilization Type Strumming,Sustained Pressure, Trigger Point Release Intensity/Depth Superficial Body Position Hooklying Manual Traction 1 Details Long-axis LE traction /c strap Body Position Supine Comments Bilateral individually PT-OP-T Assessment and Plan Start: 09/05/19 13:49 Freq: Status: Active Protocol: Document 09/22/19 09:45 DCW (Rec: 09/22/19 10:28 DCW [id number]) Physical Therapy Assessment Impairments Impairments Functional Mobility,Pain,Soft Tissue Mobility,Strength,Tone Goals Five Impairment LEFS score of 27/80 Long-Term Goal (LTG) LEFS score of 35/80 LTG Duration 11/03/19 Four Impairment Right hip weakness Sports Internship Goal (LTG) Patient will exhibit 1/2 grade increase in MMT to right adductors for improvement of functional weight bearing mobility. LTG Duration 11/03/19 Three Impairment Pt unable to stand longer than 10 minutes without increased symptoms Long-Term Goal (LTG) Pt to be able to stand 25 minutes with no increase in symptoms LTG Duration 11/03/19 Two Impairment Pt has difficulty donning and doffing footwear Sports Internship Goal (LTG) Pt to exhibit moderateadductor tone to allow her to don and doff footwear without assistance LTG Duration 11/03/19 One Impairment Pt does not have an appropriate home exercise program Short Term Goal (STG) Pt to be independent and compliant with an appropriate home exercise program STG Duration 10/05/19 Assessment Summary Assessment Pt tolerated STM better today, appears to be improving in pain level and mobility. Pt does display a worsening supination of her left foot due to increased tone in medial muscular in the calf. Physical Therapy Plan Frequency and Duration Frequency of Treatment 2x/Week Duration of Treatment 2 months Plan of Care Start Date 09/04/19 Plan of Care End Date 11/03/19 Therapeutic Interventions Therapeutic Interventions Home Exercise Program,Joint Mobilizations,Manual Therapy, Patient/Caregiver Education, Self-Care/Home Management,Soft Tissue Mobilization, Therapeutic Exercises Modalities Cold Pack/Ice Massage,Electric Stimulation,Hot Packs Next Visit Focus/Plan Next Note Type Treatment Note Next Visit Plan STM, Flexibility/soft tissue stretching, hip strengthening
--- NOTE | 2019-09-29 10:30 | PT.OTN ---
Current Diagnoses Pain in right hip (09/29/19) Stiffness of right hip, not elsewhere classified (09/29/19) Weakness (09/29/19) Physical Therapy Treatment Note PT-OP-A Visit Information Start: 09/05/19 13:49 Freq: Status: Active Protocol: Document 09/29/19 09:45 DCW (Rec: 09/29/19 10:30 DCW [id number]) Out-Patient Physical Therapy Visit Information Visit Information Visit Type Treatment Note Visit Start Time 09:45 Visit Stop Time 10:30 Total Visit Minutes 45 Visit Number 4 Number of PLANER OFFBEARER Visits 0 Evaluation Information Evaluation Date 09/04/19 PT-OP-B Current Condition Start: 09/05/19 13:49 Freq: Status: Active Protocol: Document 09/04/19 16:45 DCW (Rec: 09/05/19 14:26 DCW [id number]) Current Condition History of Current Condition Onset Date One month Current Complaints proximal, medial hip/groin pain History of Current Condition Pt is a 59 year old female presenting with a one month history of pain at her proximal medial right hip/ groin. Pt reports she was having slight discomfort in the area for a few weeks, and then slept with a heating pad on the area one night, and woke up in much more pain. Pt reports sh has been diagnosed with severe arthritis and sarcoidosis, which she has recently started medication for. Pt reports she is unable to sit with her legs crossed, and needs help occasionally to don or doff her socks and shoes. Pt also notes that she is unable to stand longer than 10 minutes, but that is not a big priority for me. PT-OP-C Subjective Start: 09/05/19 13:49 Freq: Status: Active Protocol: Document 09/29/19 09:45 DCW (Rec: 09/29/19 10:30 DCW [id number]) OP-PT Subjective Patient Comments Patient Comments I've had much improvement, but it is still very painful deep in my hip joint. I was able to get my pants on without sitting down, and can cross my legs to get my socks on. PT-OP-F Manual Assessment Start: 09/05/19 13:49 Freq: Status: Active Protocol: Document 09/04/19 16:45 DCW (Rec: 09/05/19 14:26 DCW [id number]) Manual Assessments Soft Tissue Assessment Soft Tissue Mobility Assessment Severe tone and Tenderness to Palpation 4/4: Palpation not allowed along right adductors, worsening from insertion to origin. Severe tone and Tenderness to Palpation 3/4: Wincing and withdraw along bilateral psoas , R>L Mild complaints of pain and tenderness along B ITB, L Adductors, B Piriformis Joint Mobility Assessment Joint Mobility Assessment Passive hip mobility largely WNL bilaterally PT-OP-L Special Tests Start: 09/05/19 13:49 Freq: Status: Active Protocol: Document 09/04/19 16:45 DCW (Rec: 09/05/19 14:26 DCW [id number]) Special Tests Lumbar Spine Special Tests Manual Traction Comments R long-axis traction provided substantial relief for pt Hip Special Tests Straight Leg Raise Test Results Negative Piriformis Test Results Negative SANDRA Test Results Pain in R proximal medial hip Scour Test Test Results Negative PT-OP-M Strength Start: 09/05/19 13:49 Freq: Status: Active Protocol: Document 09/04/19 16:45 DCW (Rec: 09/05/19 14:26 DCW [id number]) Hip Strength Hip Manual Muscle Testing Right Flexion (L2) 4- Good- Abduction 4- Good- Adduction 3+ Fair+ Left Flexion (L2) 4+ Good+ Abduction 4+ Good+ Adduction 4+ Good+ Knee Strength Knee Manual Muscle Testing Left Flexion (S2) 4+ Good+ Extension (L3) 4+ Good+ Right Flexion (S2) 4 Good Extension (L3) 4 Good Ankle/Foot Strength Ankle and Foot Manual Muscle Testing Right Dorsiflexion (L4) 4+ Good+ Left Dorsiflexion (L4) 4+ Good+ PT-OP-Q Treatments Start: 09/05/19 13:49 Freq: Status: Active Protocol: Document 09/29/19 09:45 DCW (Rec: 09/29/19 10:30 DCW [id number]) Manual Therapy Treatment Soft Tissue Mobilization 4 Body Location R Piriformis Mobilization Type Strumming,Sustained Pressure, Trigger Point Release Intensity/Depth Deep Body Position Sidelying 3 Body Location R ITB Mobilization Type Strumming,Sustained Pressure, Trigger Point Release Intensity/Depth Superficial Body Position Hooklying 2 Body Location R Psoas Mobilization Type Strumming,Sustained Pressure Body Position Hooklying 1 Body Location R Adductor Mobilization Type Strumming,Sustained Pressure, Trigger Point Release Intensity/Depth Superficial Body Position Hooklying PT-OP-T Assessment and Plan Start: 09/05/19 13:49 Freq: Status: Active Protocol: Document 09/29/19 09:45 DCW (Rec: 09/29/19 10:30 DCW [id number]) Physical Therapy Assessment Impairments Impairments Functional Mobility,Pain,Soft Tissue Mobility,Strength,Tone Goals Five Impairment LEFS score of 27/80 Alf Goal (LTG) LEFS score of 35/80 LTG Duration 11/03/19 Four Impairment Right hip weakness Composition Siding Worker Goal (LTG) Patient will exhibit 1/2 grade increase in MMT to right adductors for improvement of functional weight bearing mobility. LTG Duration 11/03/19 Three Impairment Pt unable to stand longer than 10 minutes without increased symptoms Alf Goal (LTG) Pt to be able to stand 25 minutes with no increase in symptoms LTG Duration 11/03/19 Two Impairment Pt has difficulty donning and doffing footwear Alf Goal (LTG) Pt to exhibit moderateadductor tone to allow her to don and doff footwear without assistance LTG Duration 11/03/19 One Impairment Pt does not have an appropriate home exercise program Short Term Goal (STG) Pt to be independent and compliant with an appropriate home exercise program STG Duration 10/05/19 Assessment Summary Assessment Focused today mainly on manual therapy, worked to decrease tone in right hip musculature. Pt responded very well, noticeable improvement in tone post-appointment. Pt does continue to complain of sharp anterior hip/groin pain, worse in the AM, which may be indicative of acetabular osteoarthritis. Physical Therapy Plan Frequency and Duration Frequency of Treatment 2x/Week Duration of Treatment 2 months Plan of Care Start Date 09/04/19 Plan of Care End Date 11/03/19 Therapeutic Interventions Therapeutic Interventions Home Exercise Program,Joint Mobilizations,Manual Therapy, Patient/Caregiver Education, Self-Care/Home Management,Soft Tissue Mobilization, Therapeutic Exercises Modalities Cold Pack/Ice Massage,Electric Stimulation,Hot Packs Next Visit Focus/Plan Next Note Type Treatment Note Next Visit Plan STM, Flexibility/soft tissue stretching, hip strengthening
--- NOTE | 2019-10-23 10:35 | PT.OTN ---
Current Diagnoses Pain in right hip (10/23/19) Stiffness of right hip, not elsewhere classified (10/23/19) Weakness (10/23/19) Physical Therapy Treatment Note PT-OP-A Visit Information Start: 09/05/19 13:49 Freq: Status: Active Protocol: Document 10/23/19 09:45 DCW (Rec: 10/23/19 10:34 DCW [id number]) Out-Patient Physical Therapy Visit Information Visit Information Visit Type Treatment Note Visit Start Time 09:45 Visit Stop Time 10:30 Total Visit Minutes 45 Visit Number 5 Number of HVAC SALES REPRESENTATIVE Visits 0 Evaluation Information Evaluation Date 09/04/19 PT-OP-B Current Condition Start: 09/05/19 13:49 Freq: Status: Active Protocol: Document 09/04/19 16:45 DCW (Rec: 09/05/19 14:26 DCW [id number]) Current Condition History of Current Condition Onset Date One month Current Complaints proximal, medial hip/groin pain History of Current Condition Pt is a 59 year old female presenting with a one month history of pain at her proximal medial right hip/ groin. Pt reports she was having slight discomfort in the area for a few weeks, and then slept with a heating pad on the area one night, and woke up in much more pain. Pt reports sh has been diagnosed with severe arthritis and sarcoidosis, which she has recently started medication for. Pt reports she is unable to sit with her legs crossed, and needs help occasionally to don or doff her socks and shoes. Pt also notes that she is unable to stand longer than 10 minutes, but that is not a big priority for me. PT-OP-C Subjective Start: 09/05/19 13:49 Freq: Status: Active Protocol: Document 10/23/19 09:45 DCW (Rec: 10/23/19 10:34 DCW [id number]) OP-PT Subjective Patient Comments Patient Comments Pt reports she had a Fibromyalgia flare-up last week, but is doing better today. PT-OP-F Manual Assessment Start: 09/05/19 13:49 Freq: Status: Active Protocol: Document 09/04/19 16:45 DCW (Rec: 09/05/19 14:26 DCW [id number]) Manual Assessments Soft Tissue Assessment Soft Tissue Mobility Assessment Severe tone and Tenderness to Palpation 4/4: Palpation not allowed along right adductors, worsening from insertion to origin. Severe tone and Tenderness to Palpation 3/4: Wincing and withdraw along bilateral psoas , R>L Mild complaints of pain and tenderness along B ITB, L Adductors, B Piriformis Joint Mobility Assessment Joint Mobility Assessment Passive hip mobility largely WNL bilaterally PT-OP-L Special Tests Start: 09/05/19 13:49 Freq: Status: Active Protocol: Document 09/04/19 16:45 DCW (Rec: 09/05/19 14:26 DCW [id number]) Special Tests Lumbar Spine Special Tests Manual Traction Comments R long-axis traction provided substantial relief for pt Hip Special Tests Straight Leg Raise Test Results Negative Piriformis Test Results Negative SANDRA Test Results Pain in R proximal medial hip Scour Test Test Results Negative PT-OP-M Strength Start: 09/05/19 13:49 Freq: Status: Active Protocol: Document 09/04/19 16:45 DCW (Rec: 09/05/19 14:26 DCW [id number]) Hip Strength Hip Manual Muscle Testing Right Flexion (L2) 4- Good- Abduction 4- Good- Adduction 3+ Fair+ Left Flexion (L2) 4+ Good+ Abduction 4+ Good+ Adduction 4+ Good+ Knee Strength Knee Manual Muscle Testing Left Flexion (S2) 4+ Good+ Extension (L3) 4+ Good+ Right Flexion (S2) 4 Good Extension (L3) 4 Good Ankle/Foot Strength Ankle and Foot Manual Muscle Testing Right Dorsiflexion (L4) 4+ Good+ Left Dorsiflexion (L4) 4+ Good+ PT-OP-Q Treatments Start: 09/05/19 13:49 Freq: Status: Active Protocol: Document 10/23/19 09:45 DCW (Rec: 10/23/19 10:34 DCW [id number]) Therapeutic Exercises Supine Exercises 4 Supine Exercise Name Low trunk rotations Side bilateral Equipment Used Blue 45 cm T-ball 3 Supine Exercise Name SLR /c ER Side bilateral Resistance 5# Reps/Minutes 2x10 2 Supine Exercise Name Hamstring Stretch /c strap Side bilateral Comments lateral pull on foot into pronation 1 Supine Exercise Name Adductor stretch Side bilateral Manual Therapy Treatment Soft Tissue Mobilization 4 Body Location R Piriformis Mobilization Type Strumming,Sustained Pressure, Trigger Point Release Intensity/Depth Deep Body Position Sidelying 3 Body Location R ITB Mobilization Type Strumming,Sustained Pressure, Trigger Point Release Intensity/Depth Superficial Body Position Hooklying 2 Body Location R Psoas Mobilization Type Strumming,Sustained Pressure Body Position Hooklying 1 Body Location R Adductor Mobilization Type Strumming,Sustained Pressure, Trigger Point Release Intensity/Depth Superficial Body Position Hooklying Manual Traction 1 Details Long-axis LE traction /c strap Body Position Supine Comments Bilateral individually PT-OP-T Assessment and Plan Start: 09/05/19 13:49 Freq: Status: Active Protocol: Document 10/23/19 09:45 DCW (Rec: 10/23/19 10:34 DCW [id number]) Physical Therapy Assessment Impairments Impairments Functional Mobility,Pain,Soft Tissue Mobility,Strength,Tone Goals Five Impairment LEFS score of 27/80 Fdc Goal (LTG) LEFS score of 35/80 LTG Duration 11/03/19 Four Impairment Right hip weakness Fdc Goal (LTG) Patient will exhibit 1/2 grade increase in MMT to right adductors for improvement of functional weight bearing mobility. LTG Duration 11/03/19 Three Impairment Pt unable to stand longer than 10 minutes without increased symptoms Fdc Goal (LTG) Pt to be able to stand 25 minutes with no increase in symptoms LTG Duration 11/03/19 Two Impairment Pt has difficulty donning and doffing footwear Disability Specialist Goal (LTG) Pt to exhibit moderateadductor tone to allow her to don and doff footwear without assistance LTG Duration 11/03/19 One Impairment Pt does not have an appropriate home exercise program Short Term Goal (STG) Pt to be independent and compliant with an appropriate home exercise program STG Duration 10/05/19 Assessment Summary Assessment Pt showing improvement overall , much less pain, and she is demonstrating improvement with functional movement. Physical Therapy Plan Frequency and Duration Frequency of Treatment 2x/Week Duration of Treatment 2 months Plan of Care Start Date 09/04/19 Plan of Care End Date 11/03/19 Therapeutic Interventions Therapeutic Interventions Home Exercise Program,Joint Mobilizations,Manual Therapy, Patient/Caregiver Education, Self-Care/Home Management,Soft Tissue Mobilization, Therapeutic Exercises Modalities Cold Pack/Ice Massage,Electric Stimulation,Hot Packs Next Visit Focus/Plan Next Note Type Treatment Note Next Visit Plan STM, Flexibility/soft tissue stretching, hip strengthening
--- NOTE | 2019-12-02 12:57 | PT-OP ANOTE ---
Left message on patient's voicemail about return to therapy as the clinic slowly opens back up following CDC recommendations. Pt will call back if interested about scheduling further appointments.
--- NOTE | 2020-02-10 14:35 | PT.OTN ---
Current Diagnoses Pain in right hip (02/10/20) Stiffness of right hip, not elsewhere classified (02/10/20) Weakness (02/10/20) Physical Therapy Treatment Note PT-OP-A Visit Information Start: 09/05/19 13:49 Freq: Status: Active Protocol: Document 02/10/20 10:43 DCW (Rec: 02/10/20 11:19 DCW [id number]) Out-Patient Physical Therapy Visit Information Visit Information Visit Type Treatment Note Visit Start Time 10:43 Visit Stop Time 11:15 Total Visit Minutes 32 Visit Number 6 Number of WOOL GRADER Visits 0 Evaluation Information Evaluation Date 09/04/19 PT-OP-B Current Condition Start: 09/05/19 13:49 Freq: Status: Active Protocol: Document 09/04/19 16:45 DCW (Rec: 09/05/19 14:26 DCW [id number]) Current Condition History of Current Condition Onset Date One month Current Complaints proximal, medial hip/groin pain History of Current Condition Pt is a 59 year old female presenting with a one month history of pain at her proximal medial right hip/ groin. Pt reports she was having slight discomfort in the area for a few weeks, and then slept with a heating pad on the area one night, and woke up in much more pain. Pt reports sh has been diagnosed with severe arthritis and sarcoidosis, which she has recently started medication for. Pt reports she is unable to sit with her legs crossed, and needs help occasionally to don or doff her socks and shoes. Pt also notes that she is unable to stand longer than 10 minutes, but that is not a big priority for me. PT-OP-C Subjective Start: 09/05/19 13:49 Freq: Status: Active Protocol: Document 02/10/20 10:43 DCW (Rec: 02/10/20 11:19 DCW [id number]) OP-PT Subjective Patient Comments Patient Comments Pt reports that she has been walking a lot more, up to 4-5 miles a day, and has lost 20 pounds recently. PT-OP-F Manual Assessment Start: 09/05/19 13:49 Freq: Status: Active Protocol: Document 02/10/20 10:43 DCW (Rec: 02/10/20 11:09 DCW [id number]) Manual Assessments Soft Tissue Assessment Soft Tissue Mobility Assessment Severe tone and Tenderness to Palpation 4/4: Palpation not allowed along right adductors, worsening from insertion to origin. Severe tone and Tenderness to Palpation 3/4: Wincing and withdraw along bilateral psoas , R>L Mild complaints of pain and tenderness along B ITB, L Adductors, B Piriformis Joint Mobility Assessment Joint Mobility Assessment Passive hip mobility largely WNL bilaterally PT-OP-L Special Tests Start: 09/05/19 13:49 Freq: Status: Active Protocol: Document 02/10/20 10:43 DCW (Rec: 02/10/20 11:09 DCW [id number]) Special Tests Lumbar Spine Special Tests Manual Traction Comments R long-axis traction provided substantial relief for pt Hip Special Tests Straight Leg Raise Test Results Negative Piriformis Test Results Negative SANDRA Test Results Ispilateral pain bilaterally Scour Test Test Results Negative PT-OP-M Strength Start: 09/05/19 13:49 Freq: Status: Active Protocol: Document 02/10/20 10:43 DCW (Rec: 02/10/20 11:09 DCW [id number]) Hip Strength Hip Manual Muscle Testing Right Flexion (L2) 4- Good- Abduction 4- Good- Adduction 3+ Fair+ Left Flexion (L2) 4+ Good+ Abduction 4+ Good+ Adduction 4+ Good+ Knee Strength Knee Manual Muscle Testing Left Flexion (S2) 4+ Good+ Extension (L3) 4+ Good+ Right Flexion (S2) 4 Good Extension (L3) 4 Good Ankle/Foot Strength Ankle and Foot Manual Muscle Testing Right Dorsiflexion (L4) 4+ Good+ Left Dorsiflexion (L4) 4+ Good+ PT-OP-Q Treatments Start: 09/05/19 13:49 Freq: Status: Active Protocol: Document 02/10/20 10:43 DCW (Rec: 02/10/20 11:19 DCW [id number]) Manual Therapy Treatment Soft Tissue Mobilization 4 Body Location R Piriformis Mobilization Type Strumming,Sustained Pressure, Trigger Point Release Intensity/Depth Deep Body Position Sidelying 3 Body Location R ITB Mobilization Type Strumming,Sustained Pressure, Trigger Point Release Intensity/Depth Superficial Body Position Hooklying 2 Body Location R Psoas Mobilization Type Strumming,Sustained Pressure Body Position Hooklying 1 Body Location R Adductor Mobilization Type Strumming,Sustained Pressure, Trigger Point Release Intensity/Depth Superficial Body Position Hooklying Manual Traction 1 Details Long-axis LE traction /c strap Body Position Supine Comments Bilateral individually PT-OP-T Assessment and Plan Start: 09/05/19 13:49 Freq: Status: Active Protocol: Document 02/10/20 10:43 DCW (Rec: 02/10/20 11:19 DCW [id number]) Physical Therapy Assessment Impairments Impairments Functional Mobility,Pain,Soft Tissue Mobility,Strength,Tone Goals Five Impairment LEFS score of 27/80 Care Home Goal (LTG) LEFS score of 35/80 LTG Duration 04/12/20 Four Impairment Right hip weakness Android Programmer Goal (LTG) Patient will exhibit 1/2 grade increase in MMT to right adductors for improvement of functional weight bearing mobility. LTG Duration 04/12/20 Three Impairment Pt unable to stand longer than 10 minutes without increased symptoms Android Programmer Goal (LTG) Pt to be able to stand 25 minutes with no increase in symptoms LTG Duration 04/12/20 Two Impairment Pt has difficulty donning and doffing footwear Care Home Goal (LTG) Pt to exhibit moderate adductor tone to allow her to don and doff footwear without assistance LTG Duration 04/12/20 One Impairment Pt does not have an appropriate home exercise program Short Term Goal (STG) Pt to be independent and compliant with an appropriate home exercise program STG Duration 03/12/20 Assessment Summary Assessment Pt fairly similar to how she was functioning last visit after a long layoff secondary to COVID-19. Pt should benefit from skilled therapy focusing on decreasing hypertonia and improving functional mobility. Physical Therapy Plan Frequency and Duration Frequency of Treatment 2x/Week Duration of Treatment 2 months Plan of Care Start Date 02/10/20 Plan of Care End Date 04/10/20 Therapeutic Interventions Therapeutic Interventions Home Exercise Program,Joint Mobilizations,Manual Therapy, Patient/Caregiver Education, Self-Care/Home Management,Soft Tissue Mobilization, Therapeutic Exercises Modalities Cold Pack/Ice Massage,Electric Stimulation,Hot Packs Next Visit Focus/Plan Next Note Type Treatment Note Next Visit Plan STM, Flexibility/soft tissue stretching, hip strengthening
--- NOTE | 2020-02-10 14:35 | PT.OPPOC ---
Physical, Occupational & Speech Therapy At [facility] Current Diagnoses Pain in right hip (02/10/20) Stiffness of right hip, not elsewhere classified (02/10/20) Weakness (02/10/20) Visit Care Team Role Provider Type Wilian Booth MD Attending Provider Physician Primary Care Provider Specialty: Family Practice Address: [address] [place] [address], [facility] Email: [email or web address] Plan Of Care PT-OP-T Assessment and Plan Start: 09/05/19 13:49 Freq: Status: Active Protocol: Document 02/10/20 10:43 DCW (Rec: 02/10/20 11:19 DCW [id number]) Physical Therapy Assessment Impairments Impairments Functional Mobility,Pain,Soft Tissue Mobility,Strength,Tone Goals Five Impairment LEFS score of 27/80 Detention Goal (LTG) LEFS score of 35/80 LTG Duration 04/12/20 Four Impairment Right hip weakness Door To Door Lead Generation Goal (LTG) Patient will exhibit 1/2 grade increase in MMT to right adductors for improvement of functional weight bearing mobility. LTG Duration 04/12/20 Three Impairment Pt unable to stand longer than 10 minutes without increased symptoms Detention Goal (LTG) Pt to be able to stand 25 minutes with no increase in symptoms LTG Duration 04/12/20 Two Impairment Pt has difficulty donning and doffing footwear Detention Goal (LTG) Pt to exhibit moderate adductor tone to allow her to don and doff footwear without assistance LTG Duration 04/12/20 One Impairment Pt does not have an appropriate home exercise program Short Term Goal (STG) Pt to be independent and compliant with an appropriate home exercise program STG Duration 03/12/20 Assessment Summary Assessment Pt fairly similar to how she was functioning last visit after a long layoff secondary to COVID-19. Pt should benefit from skilled therapy focusing on decreasing hypertonia and improving functional mobility. Physical Therapy Plan Frequency and Duration Frequency of Treatment 2x/Week Duration of Treatment 2 months Plan of Care Start Date 02/10/20 Plan of Care End Date 04/10/20 Therapeutic Interventions Therapeutic Interventions Home Exercise Program,Joint Mobilizations,Manual Therapy, Patient/Caregiver Education, Self-Care/Home Management,Soft Tissue Mobilization, Therapeutic Exercises Modalities Cold Pack/Ice Massage,Electric Stimulation,Hot Packs Next Visit Focus/Plan Next Note Type Treatment Note Next Visit Plan STM, Flexibility/soft tissue stretching, hip strengthening Plan of Care Dates Plan of Care Start Date 02/10/20 Plan of Care End Date 04/10/20 Electronically Signed by: Dion Riggins, PT 02/10/20 [id number] Please Sign and Return: I have reviewed this Plan of Care and certify that the skilled therapy services above are required to meet the patient?s needs. Physician Signature Date Printed Name and Credentials Clinical Instructor Signature Printed Name and Credentials
--- NOTE | 2020-02-18 12:06 | PT.OTN ---
Current Diagnoses Pain in right hip (02/18/20) Stiffness of right hip, not elsewhere classified (02/18/20) Weakness (02/18/20) Physical Therapy Treatment Note PT-OP-A Visit Information Start: 09/05/19 13:49 Freq: Status: Active Protocol: Document 02/18/20 11:15 DCW (Rec: 02/18/20 12:04 DCW [id number]) Out-Patient Physical Therapy Visit Information Visit Information Visit Type Treatment Note Visit Start Time 11:15 Visit Stop Time 12:00 Total Visit Minutes 45 Visit Number 7 Number of PRINCIPAL NETWORK ARCHITECT Visits 0 Evaluation Information Evaluation Date 09/04/19 PT-OP-B Current Condition Start: 09/05/19 13:49 Freq: Status: Active Protocol: Document 09/04/19 16:45 DCW (Rec: 09/05/19 14:26 DCW [id number]) Current Condition History of Current Condition Onset Date One month Current Complaints proximal, medial hip/groin pain History of Current Condition Pt is a 59 year old female presenting with a one month history of pain at her proximal medial right hip/ groin. Pt reports she was having slight discomfort in the area for a few weeks, and then slept with a heating pad on the area one night, and woke up in much more pain. Pt reports sh has been diagnosed with severe arthritis and sarcoidosis, which she has recently started medication for. Pt reports she is unable to sit with her legs crossed, and needs help occasionally to don or doff her socks and shoes. Pt also notes that she is unable to stand longer than 10 minutes, but that is not a big priority for me. PT-OP-C Subjective Start: 09/05/19 13:49 Freq: Status: Active Protocol: Document 02/18/20 11:15 DCW (Rec: 02/18/20 12:04 DCW [id number]) OP-PT Subjective Patient Comments Patient Comments Pt has been feeliong pretty good today. PT-OP-F Manual Assessment Start: 09/05/19 13:49 Freq: Status: Active Protocol: Document 02/10/20 10:43 DCW (Rec: 02/10/20 11:09 DCW [id number]) Manual Assessments Soft Tissue Assessment Soft Tissue Mobility Assessment Severe tone and Tenderness to Palpation 4/4: Palpation not allowed along right adductors, worsening from insertion to origin. Severe tone and Tenderness to Palpation 3/4: Wincing and withdraw along bilateral psoas , R>L Mild complaints of pain and tenderness along B ITB, L Adductors, B Piriformis Joint Mobility Assessment Joint Mobility Assessment Passive hip mobility largely WNL bilaterally PT-OP-L Special Tests Start: 09/05/19 13:49 Freq: Status: Active Protocol: Document 02/10/20 10:43 DCW (Rec: 02/10/20 11:09 DCW [id number]) Special Tests Lumbar Spine Special Tests Manual Traction Comments R long-axis traction provided substantial relief for pt Hip Special Tests Straight Leg Raise Test Results Negative Piriformis Test Results Negative SANDRA Test Results Ispilateral pain bilaterally Scour Test Test Results Negative PT-OP-M Strength Start: 09/05/19 13:49 Freq: Status: Active Protocol: Document 02/10/20 10:43 DCW (Rec: 02/10/20 11:09 DCW [id number]) Hip Strength Hip Manual Muscle Testing Right Flexion (L2) 4- Good- Abduction 4- Good- Adduction 3+ Fair+ Left Flexion (L2) 4+ Good+ Abduction 4+ Good+ Adduction 4+ Good+ Knee Strength Knee Manual Muscle Testing Left Flexion (S2) 4+ Good+ Extension (L3) 4+ Good+ Right Flexion (S2) 4 Good Extension (L3) 4 Good Ankle/Foot Strength Ankle and Foot Manual Muscle Testing Right Dorsiflexion (L4) 4+ Good+ Left Dorsiflexion (L4) 4+ Good+ PT-OP-Q Treatments Start: 09/05/19 13:49 Freq: Status: Active Protocol: Document 02/18/20 11:15 DCW (Rec: 02/18/20 12:04 DCW [id number]) Therapeutic Exercises Supine Exercises 4 Supine Exercise Name Low trunk rotations Side bilateral Equipment Used Blue 45 cm T-ball 2 Supine Exercise Name Hamstring Stretch /c strap Side bilateral Comments lateral pull on foot into pronation 1 Supine Exercise Name Adductor stretch Side bilateral Manual Therapy Treatment Soft Tissue Mobilization 4 Body Location R Piriformis Mobilization Type Strumming,Sustained Pressure, Trigger Point Release Intensity/Depth Deep Body Position Sidelying 3 Body Location R ITB Mobilization Type Strumming,Sustained Pressure, Trigger Point Release Intensity/Depth Superficial Body Position Hooklying 2 Body Location R Psoas Mobilization Type Strumming,Sustained Pressure Body Position Hooklying 1 Body Location R Adductor Mobilization Type Strumming,Sustained Pressure, Trigger Point Release Intensity/Depth Superficial Body Position Hooklying Manual Traction 1 Details Long-axis LE traction /c strap Body Position Supine Comments Bilateral individually PT-OP-T Assessment and Plan Start: 09/05/19 13:49 Freq: Status: Active Protocol: Document 02/18/20 11:15 DCW (Rec: 02/18/20 12:04 DCW [id number]) Physical Therapy Assessment Impairments Impairments Functional Mobility,Pain,Soft Tissue Mobility,Strength,Tone Goals Five Impairment LEFS score of 27/80 Half-Way Goal (LTG) LEFS score of 35/80 LTG Duration 04/12/20 Four Impairment Right hip weakness Jig Hand Goal (LTG) Patient will exhibit 1/2 grade increase in MMT to right adductors for improvement of functional weight bearing mobility. LTG Duration 04/12/20 Three Impairment Pt unable to stand longer than 10 minutes without increased symptoms Jig Hand Goal (LTG) Pt to be able to stand 25 minutes with no increase in symptoms LTG Duration 04/12/20 Two Impairment Pt has difficulty donning and doffing footwear Half-Way Goal (LTG) Pt to exhibit moderate adductor tone to allow her to don and doff footwear without assistance LTG Duration 04/12/20 One Impairment Pt does not have an appropriate home exercise program Short Term Goal (STG) Pt to be independent and compliant with an appropriate home exercise program STG Duration 03/12/20 Assessment Summary Assessment Pt tolerated today's treatment with minimal complaints, noted that prior to her visit she felt crooked, but could tell a difference after today' s session. Physical Therapy Plan Frequency and Duration Frequency of Treatment 2x/Week Duration of Treatment 2 months Plan of Care Start Date 02/10/20 Plan of Care End Date 04/10/20 Therapeutic Interventions Therapeutic Interventions Home Exercise Program,Joint Mobilizations,Manual Therapy, Patient/Caregiver Education, Self-Care/Home Management,Soft Tissue Mobilization, Therapeutic Exercises Modalities Cold Pack/Ice Massage,Electric Stimulation,Hot Packs Next Visit Focus/Plan Next Note Type Treatment Note Next Visit Plan STM, Flexibility/soft tissue stretching, hip strengthening
--- NOTE | 2020-03-03 17:40 | PT.OTN ---
Current Diagnoses Pain in right hip (02/18/20) Stiffness of right hip, not elsewhere classified (02/18/20) Weakness (02/18/20) Physical Therapy Treatment Note PT-OP-A Visit Information Start: 09/05/19 13:49 Freq: Status: Active Protocol: Document 03/03/20 16:45 DCW (Rec: 03/03/20 17:39 DCW [id number]) Out-Patient Physical Therapy Visit Information Visit Information Visit Type Treatment Note Visit Start Time 16:45 Visit Stop Time 17:30 Total Visit Minutes 45 Visit Number 8 Number of FRONT DESK ADMIN Visits 0 Evaluation Information Evaluation Date 09/04/19 PT-OP-B Current Condition Start: 09/05/19 13:49 Freq: Status: Active Protocol: Document 09/04/19 16:45 DCW (Rec: 09/05/19 14:26 DCW [id number]) Current Condition History of Current Condition Onset Date One month Current Complaints proximal, medial hip/groin pain History of Current Condition Pt is a 59 year old female presenting with a one month history of pain at her proximal medial right hip/ groin. Pt reports she was having slight discomfort in the area for a few weeks, and then slept with a heating pad on the area one night, and woke up in much more pain. Pt reports sh has been diagnosed with severe arthritis and sarcoidosis, which she has recently started medication for. Pt reports she is unable to sit with her legs crossed, and needs help occasionally to don or doff her socks and shoes. Pt also notes that she is unable to stand longer than 10 minutes, but that is not a big priority for me. PT-OP-C Subjective Start: 09/05/19 13:49 Freq: Status: Active Protocol: Document 03/03/20 16:45 DCW (Rec: 03/03/20 17:39 DCW [id number]) OP-PT Subjective Patient Comments Patient Comments Pt reports she is very sore up through her right mid-back. I'm not feeling the greatest. Not because I'm sick, just because of the pain. PT-OP-F Manual Assessment Start: 09/05/19 13:49 Freq: Status: Active Protocol: Document 02/10/20 10:43 DCW (Rec: 02/10/20 11:09 DCW [id number]) Manual Assessments Soft Tissue Assessment Soft Tissue Mobility Assessment Severe tone and Tenderness to Palpation 4/4: Palpation not allowed along right adductors, worsening from insertion to origin. Severe tone and Tenderness to Palpation 3/4: Wincing and withdraw along bilateral psoas , R>L Mild complaints of pain and tenderness along B ITB, L Adductors, B Piriformis Joint Mobility Assessment Joint Mobility Assessment Passive hip mobility largely WNL bilaterally PT-OP-L Special Tests Start: 09/05/19 13:49 Freq: Status: Active Protocol: Document 02/10/20 10:43 DCW (Rec: 02/10/20 11:09 DCW [id number]) Special Tests Lumbar Spine Special Tests Manual Traction Comments R long-axis traction provided substantial relief for pt Hip Special Tests Straight Leg Raise Test Results Negative Piriformis Test Results Negative SANDRA Test Results Ispilateral pain bilaterally Scour Test Test Results Negative PT-OP-M Strength Start: 09/05/19 13:49 Freq: Status: Active Protocol: Document 02/10/20 10:43 DCW (Rec: 02/10/20 11:09 DCW [id number]) Hip Strength Hip Manual Muscle Testing Right Flexion (L2) 4- Good- Abduction 4- Good- Adduction 3+ Fair+ Left Flexion (L2) 4+ Good+ Abduction 4+ Good+ Adduction 4+ Good+ Knee Strength Knee Manual Muscle Testing Left Flexion (S2) 4+ Good+ Extension (L3) 4+ Good+ Right Flexion (S2) 4 Good Extension (L3) 4 Good Ankle/Foot Strength Ankle and Foot Manual Muscle Testing Right Dorsiflexion (L4) 4+ Good+ Left Dorsiflexion (L4) 4+ Good+ PT-OP-Q Treatments Start: 09/05/19 13:49 Freq: Status: Active Protocol: Document 03/03/20 16:45 DCW (Rec: 03/03/20 17:39 DCW [id number]) Therapeutic Exercises Supine Exercises 4 Supine Exercise Name Low trunk rotations Side bilateral Equipment Used Blue 45 cm T-ball 3 Supine Exercise Name SLR /c ER Side bilateral Resistance 5# Reps/Minutes 2x10 2 Supine Exercise Name Hamstring Stretch /c strap Side bilateral Comments lateral pull on foot into pronation 1 Supine Exercise Name Adductor stretch Side bilateral Manual Therapy Treatment Soft Tissue Mobilization 5 Body Location R T-spine Paraspinals Mobilization Type Strumming,Sustained Pressure Body Position Sidelying 4 Body Location R Piriformis Mobilization Type Strumming,Sustained Pressure, Trigger Point Release Intensity/Depth Deep Body Position Sidelying 3 Body Location R ITB Mobilization Type Strumming,Sustained Pressure, Trigger Point Release Intensity/Depth Superficial Body Position Hooklying 2 Body Location R Psoas Mobilization Type Strumming,Sustained Pressure Body Position Hooklying 1 Body Location R Adductor Mobilization Type Strumming,Sustained Pressure, Trigger Point Release Intensity/Depth Superficial Body Position Hooklying Manual Traction 1 Details Long-axis LE traction /c strap Body Position Supine Comments Bilateral individually PT-OP-T Assessment and Plan Start: 09/05/19 13:49 Freq: Status: Active Protocol: Document 03/03/20 16:45 DCW (Rec: 03/03/20 17:39 DCW [id number]) Physical Therapy Assessment Impairments Impairments Functional Mobility,Pain,Soft Tissue Mobility,Strength,Tone Goals Five Impairment LEFS score of 27/80 Halfway Goal (LTG) LEFS score of 35/80 LTG Duration 04/12/20 Four Impairment Right hip weakness Halfway Goal (LTG) Patient will exhibit 1/2 grade increase in MMT to right adductors for improvement of functional weight bearing mobility. LTG Duration 04/12/20 Three Impairment Pt unable to stand longer than 10 minutes without increased symptoms Production [place] Goal (LTG) Pt to be able to stand 25 minutes with no increase in symptoms LTG Duration 04/12/20 Two Impairment Pt has difficulty donning and doffing footwear Halfway Goal (LTG) Pt to exhibit moderate adductor tone to allow her to don and doff footwear without assistance LTG Duration 04/12/20 One Impairment Pt does not have an appropriate home exercise program Short Term Goal (STG) Pt to be independent and compliant with an appropriate home exercise program STG Duration 03/12/20 Assessment Summary Assessment Pt had a lot of soreness coming in to therapy today, overall tone fairly similar to her normal level. Tolerated treatment as well as she usually does. Physical Therapy Plan Frequency and Duration Frequency of Treatment 2x/Week Duration of Treatment 2 months Plan of Care Start Date 02/10/20 Plan of Care End Date 04/10/20 Therapeutic Interventions Therapeutic Interventions Home Exercise Program,Joint Mobilizations,Manual Therapy, Patient/Caregiver Education, Self-Care/Home Management,Soft Tissue Mobilization, Therapeutic Exercises Modalities Cold Pack/Ice Massage,Electric Stimulation,Hot Packs Next Visit Focus/Plan Next Note Type Treatment Note Next Visit Plan STM, Flexibility/soft tissue stretching, hip strengthening
--- NOTE | 2020-03-09 12:42 | PT.OTN ---
Current Diagnoses Pain in right hip (03/09/20) Stiffness of right hip, not elsewhere classified (03/09/20) Weakness (03/09/20) Physical Therapy Treatment Note PT-OP-A Visit Information Start: 09/05/19 13:49 Freq: Status: Active Protocol: Document 03/09/20 12:00 DCW (Rec: 03/09/20 12:41 DCW [id number]) Out-Patient Physical Therapy Visit Information Visit Information Visit Type Treatment Note Visit Start Time 12:00 Visit Stop Time 12:45 Total Visit Minutes 45 Visit Number 9 Number of TECHNOLOGY INTERN Visits 0 Evaluation Information Evaluation Date 09/04/19 PT-OP-B Current Condition Start: 09/05/19 13:49 Freq: Status: Active Protocol: Document 09/04/19 16:45 DCW (Rec: 09/05/19 14:26 DCW [id number]) Current Condition History of Current Condition Onset Date One month Current Complaints proximal, medial hip/groin pain History of Current Condition Pt is a 59 year old female presenting with a one month history of pain at her proximal medial right hip/ groin. Pt reports she was having slight discomfort in the area for a few weeks, and then slept with a heating pad on the area one night, and woke up in much more pain. Pt reports sh has been diagnosed with severe arthritis and sarcoidosis, which she has recently started medication for. Pt reports she is unable to sit with her legs crossed, and needs help occasionally to don or doff her socks and shoes. Pt also notes that she is unable to stand longer than 10 minutes, but that is not a big priority for me. PT-OP-C Subjective Start: 09/05/19 13:49 Freq: Status: Active Protocol: Document 03/09/20 12:00 DCW (Rec: 03/09/20 12:41 DCW [id number]) OP-PT Subjective Patient Comments Patient Comments Pt reports her pain has worsened along her right side and into the buttock. Also notes that she has been constipated since yesterday, and is very uncomfortable. PT-OP-F Manual Assessment Start: 09/05/19 13:49 Freq: Status: Active Protocol: Document 02/10/20 10:43 DCW (Rec: 02/10/20 11:09 DCW [id number]) Manual Assessments Soft Tissue Assessment Soft Tissue Mobility Assessment Severe tone and Tenderness to Palpation 4/4: Palpation not allowed along right adductors, worsening from insertion to origin. Severe tone and Tenderness to Palpation 3/4: Wincing and withdraw along bilateral psoas , R>L Mild complaints of pain and tenderness along B ITB, L Adductors, B Piriformis Joint Mobility Assessment Joint Mobility Assessment Passive hip mobility largely WNL bilaterally PT-OP-L Special Tests Start: 09/05/19 13:49 Freq: Status: Active Protocol: Document 02/10/20 10:43 DCW (Rec: 02/10/20 11:09 DCW [id number]) Special Tests Lumbar Spine Special Tests Manual Traction Comments R long-axis traction provided substantial relief for pt Hip Special Tests Straight Leg Raise Test Results Negative Piriformis Test Results Negative SANDRA Test Results Ispilateral pain bilaterally Scour Test Test Results Negative PT-OP-M Strength Start: 09/05/19 13:49 Freq: Status: Active Protocol: Document 02/10/20 10:43 DCW (Rec: 02/10/20 11:09 DCW [id number]) Hip Strength Hip Manual Muscle Testing Right Flexion (L2) 4- Good- Abduction 4- Good- Adduction 3+ Fair+ Left Flexion (L2) 4+ Good+ Abduction 4+ Good+ Adduction 4+ Good+ Knee Strength Knee Manual Muscle Testing Left Flexion (S2) 4+ Good+ Extension (L3) 4+ Good+ Right Flexion (S2) 4 Good Extension (L3) 4 Good Ankle/Foot Strength Ankle and Foot Manual Muscle Testing Right Dorsiflexion (L4) 4+ Good+ Left Dorsiflexion (L4) 4+ Good+ PT-OP-Q Treatments Start: 09/05/19 13:49 Freq: Status: Active Protocol: Document 03/09/20 12:00 DCW (Rec: 03/09/20 12:41 DCW [id number]) Therapeutic Exercises Supine Exercises 5 Supine Exercise Name Piriformis stretch - knee to opposite shoulder, figure-4 Manual Therapy Treatment Soft Tissue Mobilization 5 Body Location R T-spine Paraspinals Mobilization Type Strumming,Sustained Pressure Body Position Sidelying 4 Body Location R Piriformis Mobilization Type Strumming,Sustained Pressure, Trigger Point Release Intensity/Depth Deep Body Position Sidelying 3 Body Location R ITB Mobilization Type Strumming,Sustained Pressure, Trigger Point Release Intensity/Depth Superficial Body Position Hooklying 2 Body Location R Psoas Mobilization Type Strumming,Sustained Pressure Body Position Hooklying 1 Body Location R Adductor Mobilization Type Strumming,Sustained Pressure, Trigger Point Release Intensity/Depth Superficial Body Position Hooklying PT-OP-R Modalities Start: 09/05/19 13:49 Freq: Status: Active Protocol: Document 03/09/20 12:00 DCW (Rec: 03/09/20 12:42 DCW [id number]) Electric Stimulation Electric Stimulation Interferential Current (IFC) Body Location R hip/low back Cycle Continuous Patient Position Sidelying Combined With Heat/Cold Hot Pack PT-OP-T Assessment and Plan Start: 09/05/19 13:49 Freq: Status: Active Protocol: Document 03/09/20 12:00 DCW (Rec: 03/09/20 12:41 DCW [id number]) Physical Therapy Assessment Impairments Impairments Functional Mobility,Pain,Soft Tissue Mobility,Strength,Tone Goals Five Impairment LEFS score of 27/80 Corporate Tax Preparer Goal (LTG) LEFS score of 35/80 LTG Duration 04/12/20 Four Impairment Right hip weakness Halfway Goal (LTG) Patient will exhibit 1/2 grade increase in MMT to right adductors for improvement of functional weight bearing mobility. LTG Duration 04/12/20 Three Impairment Pt unable to stand longer than 10 minutes without increased symptoms Halfway Goal (LTG) Pt to be able to stand 25 minutes with no increase in symptoms LTG Duration 04/12/20 Two Impairment Pt has difficulty donning and doffing footwear Corporate Tax Preparer Goal (LTG) Pt to exhibit moderate adductor tone to allow her to don and doff footwear without assistance LTG Duration 04/12/20 One Impairment Pt does not have an appropriate home exercise program Short Term Goal (STG) Pt to be independent and compliant with an appropriate home exercise program STG Duration 03/12/20 Assessment Summary Assessment Focued today mainly on manual therapy and palliative measures . Unable to find any palpable changes which would cause this sudden increase in pain. Physical Therapy Plan Frequency and Duration Frequency of Treatment 2x/Week Duration of Treatment 2 months Plan of Care Start Date 02/10/20 Plan of Care End Date 04/10/20 Therapeutic Interventions Therapeutic Interventions Home Exercise Program,Joint Mobilizations,Manual Therapy, Patient/Caregiver Education, Self-Care/Home Management,Soft Tissue Mobilization, Therapeutic Exercises Modalities Cold Pack/Ice Massage,Electric Stimulation,Hot Packs Next Visit Focus/Plan Next Note Type Treatment Note Next Visit Plan STM, Flexibility/soft tissue stretching, hip strengthening
--- NOTE | 2020-03-11 12:37 | PT.OTN ---
Current Diagnoses Pain in right hip (03/11/20) Stiffness of right hip, not elsewhere classified (03/11/20) Weakness (03/11/20) Physical Therapy Treatment Note PT-OP-A Visit Information Start: 09/05/19 13:49 Freq: Status: Active Protocol: Document 03/11/20 12:00 DCW (Rec: 03/11/20 12:37 DCW [id number]) Out-Patient Physical Therapy Visit Information Visit Information Visit Type Treatment Note Visit Start Time 12:00 Visit Stop Time 12:45 Total Visit Minutes 45 Visit Number 10 Number of ELECTRIC RELAY TESTER Visits 0 Evaluation Information Evaluation Date 09/04/19 PT-OP-B Current Condition Start: 09/05/19 13:49 Freq: Status: Active Protocol: Document 09/04/19 16:45 DCW (Rec: 09/05/19 14:26 DCW [id number]) Current Condition History of Current Condition Onset Date One month Current Complaints proximal, medial hip/groin pain History of Current Condition Pt is a 59 year old female presenting with a one month history of pain at her proximal medial right hip/ groin. Pt reports she was having slight discomfort in the area for a few weeks, and then slept with a heating pad on the area one night, and woke up in much more pain. Pt reports sh has been diagnosed with severe arthritis and sarcoidosis, which she has recently started medication for. Pt reports she is unable to sit with her legs crossed, and needs help occasionally to don or doff her socks and shoes. Pt also notes that she is unable to stand longer than 10 minutes, but that is not a big priority for me. PT-OP-C Subjective Start: 09/05/19 13:49 Freq: Status: Active Protocol: Document 03/11/20 12:00 DCW (Rec: 03/11/20 12:37 DCW [id number]) OP-PT Subjective Patient Comments Patient Comments I'm not good today. Things aren't going well. I feel like I have an inflammed mass on the right side of my back. PT-OP-F Manual Assessment Start: 09/05/19 13:49 Freq: Status: Active Protocol: Document 02/10/20 10:43 DCW (Rec: 02/10/20 11:09 DCW [id number]) Manual Assessments Soft Tissue Assessment Soft Tissue Mobility Assessment Severe tone and Tenderness to Palpation 4/4: Palpation not allowed along right adductors, worsening from insertion to origin. Severe tone and Tenderness to Palpation 3/4: Wincing and withdraw along bilateral psoas , R>L Mild complaints of pain and tenderness along B ITB, L Adductors, B Piriformis Joint Mobility Assessment Joint Mobility Assessment Passive hip mobility largely WNL bilaterally PT-OP-L Special Tests Start: 09/05/19 13:49 Freq: Status: Active Protocol: Document 02/10/20 10:43 DCW (Rec: 02/10/20 11:09 DCW [id number]) Special Tests Lumbar Spine Special Tests Manual Traction Comments R long-axis traction provided substantial relief for pt Hip Special Tests Straight Leg Raise Test Results Negative Piriformis Test Results Negative SANDRA Test Results Ispilateral pain bilaterally Scour Test Test Results Negative PT-OP-M Strength Start: 09/05/19 13:49 Freq: Status: Active Protocol: Document 02/10/20 10:43 DCW (Rec: 02/10/20 11:09 DCW [id number]) Hip Strength Hip Manual Muscle Testing Right Flexion (L2) 4- Good- Abduction 4- Good- Adduction 3+ Fair+ Left Flexion (L2) 4+ Good+ Abduction 4+ Good+ Adduction 4+ Good+ Knee Strength Knee Manual Muscle Testing Left Flexion (S2) 4+ Good+ Extension (L3) 4+ Good+ Right Flexion (S2) 4 Good Extension (L3) 4 Good Ankle/Foot Strength Ankle and Foot Manual Muscle Testing Right Dorsiflexion (L4) 4+ Good+ Left Dorsiflexion (L4) 4+ Good+ PT-OP-Q Treatments Start: 09/05/19 13:49 Freq: Status: Active Protocol: Document 03/11/20 12:00 DCW (Rec: 03/11/20 12:37 DCW [id number]) Manual Therapy Treatment Soft Tissue Mobilization 5 Body Location R T-spine Paraspinals Mobilization Type Strumming,Sustained Pressure Body Position Sidelying 4 Body Location R Piriformis Mobilization Type Strumming,Sustained Pressure, Trigger Point Release Intensity/Depth Deep Body Position Sidelying 3 Body Location R ITB Mobilization Type Strumming,Sustained Pressure, Trigger Point Release Intensity/Depth Superficial Body Position Hooklying 2 Body Location R Psoas Mobilization Type Strumming,Sustained Pressure Body Position Hooklying 1 Body Location R Adductor Mobilization Type Strumming,Sustained Pressure, Trigger Point Release Intensity/Depth Superficial Body Position Hooklying PT-OP-R Modalities Start: 09/05/19 13:49 Freq: Status: Active Protocol: Document 03/11/20 12:00 DCW (Rec: 03/11/20 12:37 DCW [id number]) Electric Stimulation Electric Stimulation Interferential Current (IFC) Body Location R hip/low back Cycle Continuous Patient Position Sidelying Combined With Heat/Cold Hot Pack PT-OP-T Assessment and Plan Start: 09/05/19 13:49 Freq: Status: Active Protocol: Document 03/11/20 12:00 DCW (Rec: 03/11/20 12:37 DCW [id number]) Physical Therapy Assessment Impairments Impairments Functional Mobility,Pain,Soft Tissue Mobility,Strength,Tone Goals Five Impairment LEFS score of 27/80 Firewall Security Engineer Goal (LTG) LEFS score of 35/80 LTG Duration 04/12/20 Four Impairment Right hip weakness Assisted Goal (LTG) Patient will exhibit 1/2 grade increase in MMT to right adductors for improvement of functional weight bearing mobility. LTG Duration 04/12/20 Three Impairment Pt unable to stand longer than 10 minutes without increased symptoms Assisted Goal (LTG) Pt to be able to stand 25 minutes with no increase in symptoms LTG Duration 04/12/20 Two Impairment Pt has difficulty donning and doffing footwear Assisted Goal (LTG) Pt to exhibit moderate adductor tone to allow her to don and doff footwear without assistance LTG Duration 04/12/20 One Impairment Pt does not have an appropriate home exercise program Short Term Goal (STG) Pt to be independent and compliant with an appropriate home exercise program STG Duration 03/12/20 Assessment Summary Assessment Pt once again very tender to palpation, unable to tolerate much activity, needed a cane brought to her so she could get from the waiting room to a treatment room. Physical Therapy Plan Frequency and Duration Frequency of Treatment 2x/Week Duration of Treatment 2 months Plan of Care Start Date 02/10/20 Plan of Care End Date 04/10/20 Therapeutic Interventions Therapeutic Interventions Home Exercise Program,Joint Mobilizations,Manual Therapy, Patient/Caregiver Education, Self-Care/Home Management,Soft Tissue Mobilization, Therapeutic Exercises Modalities Cold Pack/Ice Massage,Electric Stimulation,Hot Packs Next Visit Focus/Plan Next Note Type Treatment Note Next Visit Plan STM, Flexibility/soft tissue stretching, hip strengthening
--- NOTE | 2020-03-16 11:10 | PT.OTN ---
Current Diagnoses Pain in right hip (03/16/20) Stiffness of right hip, not elsewhere classified (03/16/20) Weakness (03/16/20) Physical Therapy Treatment Note PT-OP-A Visit Information Start: 09/05/19 13:49 Freq: Status: Active Protocol: Document 03/16/20 10:40 DCW (Rec: 03/16/20 11:10 DCW [id number]) Out-Patient Physical Therapy Visit Information Visit Information Visit Type Treatment Note Visit Note 12 min late Visit Start Time 10:42 Visit Stop Time 11:20 Total Visit Minutes 38 Visit Number 11 Number of HOSPITAL LIAISON Visits 0 Evaluation Information Evaluation Date 09/04/19 PT-OP-B Current Condition Start: 09/05/19 13:49 Freq: Status: Active Protocol: Document 09/04/19 16:45 DCW (Rec: 09/05/19 14:26 DCW [id number]) Current Condition History of Current Condition Onset Date One month Current Complaints proximal, medial hip/groin pain History of Current Condition Pt is a 59 year old female presenting with a one month history of pain at her proximal medial right hip/ groin. Pt reports she was having slight discomfort in the area for a few weeks, and then slept with a heating pad on the area one night, and woke up in much more pain. Pt reports sh has been diagnosed with severe arthritis and sarcoidosis, which she has recently started medication for. Pt reports she is unable to sit with her legs crossed, and needs help occasionally to don or doff her socks and shoes. Pt also notes that she is unable to stand longer than 10 minutes, but that is not a big priority for me. PT-OP-C Subjective Start: 09/05/19 13:49 Freq: Status: Active Protocol: Document 03/16/20 10:40 DCW (Rec: 03/16/20 11:10 DCW [id number]) OP-PT Subjective Patient Comments Patient Comments Things are feeling a bit better. PT-OP-F Manual Assessment Start: 09/05/19 13:49 Freq: Status: Active Protocol: Document 02/10/20 10:43 DCW (Rec: 02/10/20 11:09 DCW [id number]) Manual Assessments Soft Tissue Assessment Soft Tissue Mobility Assessment Severe tone and Tenderness to Palpation 4/4: Palpation not allowed along right adductors, worsening from insertion to origin. Severe tone and Tenderness to Palpation 3/4: Wincing and withdraw along bilateral psoas , R>L Mild complaints of pain and tenderness along B ITB, L Adductors, B Piriformis Joint Mobility Assessment Joint Mobility Assessment Passive hip mobility largely WNL bilaterally PT-OP-L Special Tests Start: 09/05/19 13:49 Freq: Status: Active Protocol: Document 02/10/20 10:43 DCW (Rec: 02/10/20 11:09 DCW [id number]) Special Tests Lumbar Spine Special Tests Manual Traction Comments R long-axis traction provided substantial relief for pt Hip Special Tests Straight Leg Raise Test Results Negative Piriformis Test Results Negative SANDRA Test Results Ispilateral pain bilaterally Scour Test Test Results Negative PT-OP-M Strength Start: 09/05/19 13:49 Freq: Status: Active Protocol: Document 02/10/20 10:43 DCW (Rec: 02/10/20 11:09 DCW [id number]) Hip Strength Hip Manual Muscle Testing Right Flexion (L2) 4- Good- Abduction 4- Good- Adduction 3+ Fair+ Left Flexion (L2) 4+ Good+ Abduction 4+ Good+ Adduction 4+ Good+ Knee Strength Knee Manual Muscle Testing Left Flexion (S2) 4+ Good+ Extension (L3) 4+ Good+ Right Flexion (S2) 4 Good Extension (L3) 4 Good Ankle/Foot Strength Ankle and Foot Manual Muscle Testing Right Dorsiflexion (L4) 4+ Good+ Left Dorsiflexion (L4) 4+ Good+ PT-OP-Q Treatments Start: 09/05/19 13:49 Freq: Status: Active Protocol: Document 03/16/20 10:40 DCW (Rec: 03/16/20 11:10 DCW [id number]) Therapeutic Exercises Sidelying Exercises 3 Sidelying Exercise Name Reverse Clam Shell Side bilateral Reps/Minutes x15 2 Sidelying Exercise Name Clam Shell Side bilateral Reps/Minutes x15 1 Sidelying Exercise Name Abduction Side bilateral Reps/Minutes x15 Manual Therapy Treatment Soft Tissue Mobilization 5 Body Location R T-spine Paraspinals Mobilization Type Strumming,Sustained Pressure Body Position Sidelying 4 Body Location R Piriformis Mobilization Type Strumming,Sustained Pressure, Trigger Point Release Intensity/Depth Deep Body Position Sidelying 3 Body Location R ITB Mobilization Type Strumming,Sustained Pressure, Trigger Point Release Intensity/Depth Superficial Body Position Hooklying 2 Body Location B Psoas Mobilization Type Strumming,Sustained Pressure Body Position Hooklying 1 Body Location R Adductor Mobilization Type Strumming,Sustained Pressure, Trigger Point Release Intensity/Depth Superficial Body Position Hooklying PT-OP-R Modalities Start: 09/05/19 13:49 Freq: Status: Active Protocol: Document 03/16/20 10:40 DCW (Rec: 03/16/20 11:10 DCW [id number]) Electric Stimulation Electric Stimulation Interferential Current (IFC) Body Location R hip/low back Cycle Continuous Patient Position Sidelying Combined With Heat/Cold Hot Pack PT-OP-T Assessment and Plan Start: 09/05/19 13:49 Freq: Status: Active Protocol: Document 03/16/20 10:40 DCW (Rec: 03/16/20 11:10 DCW [id number]) Physical Therapy Assessment Impairments Impairments Functional Mobility,Pain,Soft Tissue Mobility,Strength,Tone Goals Five Impairment LEFS score of 27/80 [facility] Goal (LTG) LEFS score of 35/80 LTG Duration 04/12/20 Four Impairment Right hip weakness [facility] Goal (LTG) Patient will exhibit 1/2 grade increase in MMT to right adductors for improvement of functional weight bearing mobility. LTG Duration 04/12/20 Three Impairment Pt unable to stand longer than 10 minutes without increased symptoms [facility] Goal (LTG) Pt to be able to stand 25 minutes with no increase in symptoms LTG Duration 04/12/20 Two Impairment Pt has difficulty donning and doffing footwear [facility] Goal (LTG) Pt to exhibit moderate adductor tone to allow her to don and doff footwear without assistance LTG Duration 04/12/20 One Impairment Pt does not have an appropriate home exercise program Short Term Goal (STG) Pt to be independent and compliant with an appropriate home exercise program STG Duration 03/12/20 Assessment Summary Assessment Pt tolerated more STM and TherEx today, less tenderness all over. Still walking with cane for support, but only using it occasionally. Physical Therapy Plan Frequency and Duration Frequency of Treatment 2x/Week Duration of Treatment 2 months Plan of Care Start Date 02/10/20 Plan of Care End Date 04/10/20 Therapeutic Interventions Therapeutic Interventions Home Exercise Program,Joint Mobilizations,Manual Therapy, Patient/Caregiver Education, Self-Care/Home Management,Soft Tissue Mobilization, Therapeutic Exercises Modalities Cold Pack/Ice Massage,Electric Stimulation,Hot Packs Next Visit Focus/Plan Next Note Type Treatment Note Next Visit Plan STM, Flexibility/soft tissue stretching, hip strengthening
--- NOTE | 2020-03-18 11:15 | PT.OTN ---
Current Diagnoses Pain in right hip (03/18/20) Stiffness of right hip, not elsewhere classified (03/18/20) Weakness (03/18/20) Physical Therapy Treatment Note PT-OP-A Visit Information Start: 09/05/19 13:49 Freq: Status: Active Protocol: Document 03/18/20 10:30 DCW (Rec: 03/18/20 11:15 DCW [id number]) Out-Patient Physical Therapy Visit Information Visit Information Visit Type Treatment Note Visit Start Time 10:30 Visit Stop Time 11:20 Total Visit Minutes 50 Visit Number 12 Number of EQUAL OPPORTUNITY ASSISTANT Visits 0 Evaluation Information Evaluation Date 09/04/19 PT-OP-B Current Condition Start: 09/05/19 13:49 Freq: Status: Active Protocol: Document 09/04/19 16:45 DCW (Rec: 09/05/19 14:26 DCW [id number]) Current Condition History of Current Condition Onset Date One month Current Complaints proximal, medial hip/groin pain History of Current Condition Pt is a 59 year old female presenting with a one month history of pain at her proximal medial right hip/ groin. Pt reports she was having slight discomfort in the area for a few weeks, and then slept with a heating pad on the area one night, and woke up in much more pain. Pt reports sh has been diagnosed with severe arthritis and sarcoidosis, which she has recently started medication for. Pt reports she is unable to sit with her legs crossed, and needs help occasionally to don or doff her socks and shoes. Pt also notes that she is unable to stand longer than 10 minutes, but that is not a big priority for me. PT-OP-C Subjective Start: 09/05/19 13:49 Freq: Status: Active Protocol: Document 03/18/20 10:30 DCW (Rec: 03/18/20 11:15 DCW [id number]) OP-PT Subjective Patient Comments Patient Comments Pt reports she is moving in ways I haven't moved in years. PT-OP-F Manual Assessment Start: 09/05/19 13:49 Freq: Status: Active Protocol: Document 02/10/20 10:43 DCW (Rec: 02/10/20 11:09 DCW [id number]) Manual Assessments Soft Tissue Assessment Soft Tissue Mobility Assessment Severe tone and Tenderness to Palpation 4/4: Palpation not allowed along right adductors, worsening from insertion to origin. Severe tone and Tenderness to Palpation 3/4: Wincing and withdraw along bilateral psoas , R>L Mild complaints of pain and tenderness along B ITB, L Adductors, B Piriformis Joint Mobility Assessment Joint Mobility Assessment Passive hip mobility largely WNL bilaterally PT-OP-L Special Tests Start: 09/05/19 13:49 Freq: Status: Active Protocol: Document 02/10/20 10:43 DCW (Rec: 02/10/20 11:09 DCW [id number]) Special Tests Lumbar Spine Special Tests Manual Traction Comments R long-axis traction provided substantial relief for pt Hip Special Tests Straight Leg Raise Test Results Negative Piriformis Test Results Negative SANDRA Test Results Ispilateral pain bilaterally Scour Test Test Results Negative PT-OP-M Strength Start: 09/05/19 13:49 Freq: Status: Active Protocol: Document 02/10/20 10:43 DCW (Rec: 02/10/20 11:09 DCW [id number]) Hip Strength Hip Manual Muscle Testing Right Flexion (L2) 4- Good- Abduction 4- Good- Adduction 3+ Fair+ Left Flexion (L2) 4+ Good+ Abduction 4+ Good+ Adduction 4+ Good+ Knee Strength Knee Manual Muscle Testing Left Flexion (S2) 4+ Good+ Extension (L3) 4+ Good+ Right Flexion (S2) 4 Good Extension (L3) 4 Good Ankle/Foot Strength Ankle and Foot Manual Muscle Testing Right Dorsiflexion (L4) 4+ Good+ Left Dorsiflexion (L4) 4+ Good+ PT-OP-Q Treatments Start: 09/05/19 13:49 Freq: Status: Active Protocol: Document 03/18/20 10:30 DCW (Rec: 03/18/20 11:15 DCW [id number]) Manual Therapy Treatment Soft Tissue Mobilization 5 Body Location R T-spine Paraspinals Mobilization Type Strumming,Sustained Pressure Body Position Sidelying 4 Body Location R Piriformis Mobilization Type Strumming,Sustained Pressure, Trigger Point Release Intensity/Depth Deep Body Position Sidelying 3 Body Location B ITB Mobilization Type Strumming,Sustained Pressure, Trigger Point Release Intensity/Depth Superficial Body Position Hooklying 2 Body Location B Psoas Mobilization Type Strumming,Sustained Pressure Body Position Hooklying 1 Body Location B Adductor Mobilization Type Strumming,Sustained Pressure, Trigger Point Release Intensity/Depth Superficial Body Position Hooklying PT-OP-R Modalities Start: 09/05/19 13:49 Freq: Status: Active Protocol: Document 03/18/20 10:30 DCW (Rec: 03/18/20 11:15 DCW [id number]) Electric Stimulation Electric Stimulation Interferential Current (IFC) Body Location R hip/low back Cycle Continuous Patient Position Sidelying Combined With Heat/Cold Hot Pack PT-OP-T Assessment and Plan Start: 09/05/19 13:49 Freq: Status: Active Protocol: Document 03/18/20 10:30 DCW (Rec: 03/18/20 11:15 DCW [id number]) Physical Therapy Assessment Impairments Impairments Functional Mobility,Pain,Soft Tissue Mobility,Strength,Tone Goals Five Impairment LEFS score of 27/80 Professor Of Journalism Goal (LTG) LEFS score of 35/80 LTG Duration 04/12/20 Four Impairment Right hip weakness Professor Of Journalism Goal (LTG) Patient will exhibit 1/2 grade increase in MMT to right adductors for improvement of functional weight bearing mobility. LTG Duration 04/12/20 Three Impairment Pt unable to stand longer than 10 minutes without increased symptoms Professor Of Journalism Goal (LTG) Pt to be able to stand 25 minutes with no increase in symptoms LTG Duration 04/12/20 Two Impairment Pt has difficulty donning and doffing footwear Professor Of Journalism Goal (LTG) Pt to exhibit moderate adductor tone to allow her to don and doff footwear without assistance LTG Duration 04/12/20 One Impairment Pt does not have an appropriate home exercise program Short Term Goal (STG) Pt to be independent and compliant with an appropriate home exercise program STG Duration 03/12/20 Assessment Summary Assessment Pt still very sensitive to STM , but since she has noticed improvement, is willing to tolerate it. Physical Therapy Plan Frequency and Duration Frequency of Treatment 2x/Week Duration of Treatment 2 months Plan of Care Start Date 02/10/20 Plan of Care End Date 04/10/20 Therapeutic Interventions Therapeutic Interventions Home Exercise Program,Joint Mobilizations,Manual Therapy, Patient/Caregiver Education, Self-Care/Home Management,Soft Tissue Mobilization, Therapeutic Exercises Modalities Cold Pack/Ice Massage,Electric Stimulation,Hot Packs Next Visit Focus/Plan Next Note Type Treatment Note Next Visit Plan STM, Flexibility/soft tissue stretching, hip strengthening
--- NOTE | 2020-03-19 12:49 | PT-OP ANOTE ---
Recently received a new referral to add additional body parts to current plan of care. Her next visit will be a reassessment in order to address her most recent complaints, specifically bilateral foot and ankle pain.
--- NOTE | 2020-03-23 12:45 | PT.OTN ---
Current Diagnoses Pain in right hip (03/23/20) Stiffness of right hip, not elsewhere classified (03/23/20) Pain in right foot (03/23/20) Pain in left foot (03/23/20) Weakness (03/23/20) Physical Therapy Treatment Note PT-OP-A Visit Information Start: 09/05/19 13:49 Freq: Status: Active Protocol: Document 03/23/20 12:05 DCW (Rec: 03/23/20 13:42 DCW [id number]) Out-Patient Physical Therapy Visit Information Visit Information Visit Type Re-Evaluation Visit Start Time 12:05 Visit Stop Time 12:55 Total Visit Minutes 50 Visit Number 13 Number of TRACK LAYING EQUIPMENT OPERATOR Visits 0 Evaluation Information Evaluation Date 09/04/19 PT-OP-B Current Condition Start: 09/05/19 13:49 Freq: Status: Active Protocol: Document 03/23/20 12:05 DCW (Rec: 03/23/20 13:38 DCW [id number]) Current Condition History of Current Condition History of Current Condition Pt is a 59 year old female presenting with a one month history of pain at her proximal medial right hip/ groin. Pt reports she was having slight discomfort in the area for a few weeks, and then slept with a heating pad on the area one night, and woke up in much more pain. Pt reports sh has been diagnosed with severe arthritis and sarcoidosis, which she has recently started medication for. Pt reports she is unable to sit with her legs crossed, and needs help occasionally to don or doff her socks and shoes. Pt also notes that she is unable to stand longer than 10 minutes, but that is not a big priority for me. ADDENDUM 03/23/20: Pt has a new referral for bilateral foot pain, would like this addressed today. Pt reports she has a multi-year history of pain, feels like her left foot is twisted inside my shoe, and feels that her right ankle is constantly swollen. PT-OP-C Subjective Start: 09/05/19 13:49 Freq: Status: Active Protocol: Document 03/23/20 12:05 DCW (Rec: 03/23/20 13:42 DCW [id number]) OP-PT Subjective Patient Comments Patient Comments My left ankle always just feels like it is twisted in my shoe PT-OP-F Manual Assessment Start: 09/05/19 13:49 Freq: Status: Active Protocol: Document 03/23/20 12:05 DCW (Rec: 03/23/20 13:38 DCW [id number]) Manual Assessments Other Manual Assessments Other Manual Assessments Collapsed arch on L Ground to navicular bone; L:3. 2 cm, R:4.6 cm PT-OP-J Posture/Palpation/Skin Start: 03/23/20 13:31 Freq: Status: Active Protocol: Document 03/23/20 12:05 DCW (Rec: 03/23/20 13:38 DCW [id number]) Skin Assessment Circumference Measurement 2 Location Right Figure-8 Measurement (Centimeters) 57.6 Comments Left Figure-8: 53.2 1 Location Right transmalleolar Measurement (Centimeters) 28.9 Comments Left transmalleolar: 26.1 PT-OP-K Range of Motion Start: 09/05/19 13:49 Freq: Status: Active Protocol: Document 03/23/20 12:05 DCW (Rec: 03/23/20 13:38 DCW [id number]) Ankle and Foot Goniometric Range of Motion Ankle and Foot Right Active Testing Position Sitting Dorsiflexion with Knee Flexed 8 Plantarflexion 50 Inversion 38 Eversion 20 Left Active Ankle/Foot ROM WFL No Testing Position Sitting Dorsiflexion with Knee Flexed 0 Plantarflexion 43 Inversion 20 Eversion 18 PT-OP-L Special Tests Start: 09/05/19 13:49 Freq: Status: Active Protocol: Document 02/10/20 10:43 DCW (Rec: 02/10/20 11:09 DCW [id number]) Special Tests Lumbar Spine Special Tests Manual Traction Comments R long-axis traction provided substantial relief for pt Hip Special Tests Straight Leg Raise Test Results Negative Piriformis Test Results Negative SANDRA Test Results Ispilateral pain bilaterally Scour Test Test Results Negative PT-OP-M Strength Start: 09/05/19 13:49 Freq: Status: Active Protocol: Document 03/23/20 12:05 DCW (Rec: 03/23/20 13:38 DCW [id number]) Ankle/Foot Strength Ankle and Foot Manual Muscle Testing Right Dorsiflexion (L4) 5 Normal Plantarflexion (S1) 4- Good- Inversion 4 Good Eversion (S1) 4+ Good+ Left Dorsiflexion (L4) 4+ Good+ Plantarflexion (S1) 3+ Fair+ Inversion 4 Good Eversion (S1) 4 Good PT-OP-Q Treatments Start: 09/05/19 13:49 Freq: Status: Active Protocol: Document 03/23/20 12:05 DCW (Rec: 03/23/20 13:42 DCW [id number]) Therapeutic Exercises Sitting Exercises 3 Sitting Exercise Name Ankle PF/DF Side left Resistance Lv 2 Equipment Used T-band 2 Sitting Exercise Name Towel grab Side left Comments Intrinsic toe flexors 1 Sitting Exercise Name [place] pick-up Side left Comments Intrinsic toe flexors PT-OP-R Modalities Start: 09/05/19 13:49 Freq: Status: Active Protocol: Document 03/23/20 12:05 DCW (Rec: 03/23/20 13:42 DCW [id number]) Electric Stimulation Electric Stimulation Interferential Current (IFC) Body Location R hip/low back Cycle Continuous Patient Position Sidelying Combined With Heat/Cold Hot Pack PT-OP-T Assessment and Plan Start: 09/05/19 13:49 Freq: Status: Active Protocol: Document 03/23/20 12:00 DCW (Rec: 03/23/20 17:09 DCW [id number]) Physical Therapy Assessment Impairments Impairments Functional Mobility,Pain,ROM, Soft Tissue Mobility,Strength, Tone Goals Seven Impairment Restricted left ankle ROM Skilled Nursing Goal (LTG) Pt's ROM to improve from 0?->8 ? Dorsiflexion and 20?->35? Inversion LTG Duration 05/23/20 Six Impairment Pt exhibits collapsed L arch, navicular 1.4 cm closer to ground in standing Skilled Nursing Goal (LTG) L navicular measured at 4 cm from ground in standing LTG Duration 05/23/20 Five Impairment LEFS score of 27/80 Skilled Nursing Goal (LTG) LEFS score of 35/80 LTG Duration 04/12/20 Four Impairment Right hip weakness Telegraphic Typewriter Operator Goal (LTG) Patient will exhibit 1/2 grade increase in MMT to right adductors for improvement of functional weight bearing mobility. LTG Duration 04/12/20 Three Impairment Pt unable to stand longer than 10 minutes without increased symptoms Telegraphic Typewriter Operator Goal (LTG) Pt to be able to stand 25 minutes with no increase in symptoms LTG Duration 04/12/20 Two Impairment Pt has difficulty donning and doffing footwear Telegraphic Typewriter Operator Goal (LTG) Pt to exhibit moderate adductor tone to allow her to don and doff footwear without assistance LTG Duration 04/12/20 One Impairment Pt does not have an appropriate home exercise program Short Term Goal (STG) Pt to be independent and compliant with an appropriate home exercise program STG Duration 03/12/20 Assessment Summary Assessment Pt presents with mild R ankle edema and weakness, decreased ROM, and a collapsed arch on her left foot. Pt should benefit from skilled therapy focused on improving strength and mobility of her ankle, as well as continuing to address her ongoing pain and immobility in her hips and back. Physical Therapy Plan Frequency and Duration Frequency of Treatment 2x/Week Duration of Treatment 3 months Plan of Care Start Date 03/23/20 Plan of Care End Date 06/21/20 Therapeutic Interventions Therapeutic Interventions Home Exercise Program,Joint Mobilizations,Manual Therapy, Patient/Caregiver Education, Self-Care/Home Management,Soft Tissue Mobilization, Therapeutic Exercises Modalities Cold Pack/Ice Massage,Electric Stimulation,Hot Packs Next Visit Focus/Plan Next Note Type Treatment Note Next Visit Plan STM, Flexibility/soft tissue stretching, hip strengthening, ankle ROM, ankle/foot strengthening
--- NOTE | 2020-03-23 17:10 | PT.OTRE ---
Current Diagnoses Pain in right hip (03/23/20) Stiffness of right hip, not elsewhere classified (03/23/20) Pain in right foot (03/23/20) Pain in left foot (03/23/20) Weakness (03/23/20) Past Medical History (Last Updated 02/09/20 @ 12:46 by Wilian Booth MD) Abnormal chest xray (Chronic ~2002) Abscess of right groin (Inactive) Acne (Chronic ~2004) Anemia (Chronic) Ankle pain (Chronic ~2012) Asthma (Inactive) Asthma (Chronic ~1997) Carpal tunnel syndrome (Chronic ~1996) Chest pain (Inactive) Controlled type 2 diabetes mellitus (08/02/15) Diabetes mellitus (Chronic) DKA, type 1 (Inactive) Eczema (Chronic ~1997) Edema (Chronic) Encounter for routine gynecological examination with Papanicolaou smear of cervix (Inactive) Foot pain (Chronic ~2012) Fractures (Chronic ~1987) Gastric ulcer (Chronic) Headache (Chronic) Left arm pain (Inactive) Left knee sprain (Inactive) Leg injury (Chronic ~2014) Lipoma (Inactive) Lower back pain (Inactive) Mastodynia (Inactive) Morbid obesity with body mass index of 40.0-49.9 (Chronic) Obstructive sleep apnea of adult (Chronic) Right hip pain (Inactive) Sarcoidosis (Chronic ~2004) Shoulder pain (Chronic ~2001) Sore throat (10/07/15) Upper respiratory infection (Inactive) Uterine cancer (Chronic) Vision disorder (Chronic) Surgical History (Last Reviewed 01/15/20 @ 11:50 by Naeem Fishman MD) Anesthesia (Resolved) History of carpal tunnel repair Status post biopsy Status post biopsy Status post colonoscopy Status post hemorrhoidectomy Status post hysterectomy Visit Care Team Role Provider Type Marcello Salgado DPM Referring Provider Non-Staff Specialty: Podiatry Address: [address] [place], [address] Email: Wilian Booth MD Attending Provider Physician Primary Care Provider Specialty: Family Practice Address: [facility] [place], [address] Email: [email or web address] Physical Therapy Re-Evaluation PT-OP-A Visit Information Start: 09/05/19 13:49 Freq: Status: Active Protocol: Document 03/23/20 12:05 DCW (Rec: 03/23/20 13:42 [facility] [id number]) Out-Patient Physical Therapy Visit Information Visit Information Visit Type Re-Evaluation Visit Start Time 12:05 Visit Stop Time 12:55 Total Visit Minutes 50 Visit Number 13 Number of SPEECH PATHOLOGIST Visits 0 Evaluation Information Evaluation Date 09/04/19 PT-OP-B Current Condition Start: 09/05/19 13:49 Freq: Status: Active Protocol: Document 03/23/20 12:05 DCW (Rec: 03/23/20 13:38 DC [id number]) Current Condition History of Current Condition History of Current Condition Pt is a 59 year old female presenting with a one month history of pain at her proximal medial right hip/ groin. Pt reports she was having slight discomfort in the area for a few weeks, and then slept with a heating pad on the area one night, and woke up in much more pain. Pt reports sh has been diagnosed with severe arthritis and sarcoidosis, which she has recently started medication for. Pt reports she is unable to sit with her legs crossed, and needs help occasionally to don or doff her socks and shoes. Pt also notes that she is unable to stand longer than 10 minutes, but that is not a big priority for me. ADDENDUM 03/23/20: Pt has a new referral for bilateral foot pain, would like this addressed today. Pt reports she has a multi-year history of pain, feels like her left foot is twisted inside my shoe, and feels that her right ankle is constantly swollen. PT-OP-C Subjective Start: 09/05/19 13:49 Freq: Status: Active Protocol: Document 03/23/20 12:05 DCW (Rec: 03/23/20 13:42 DC [id number]) OP-PT Subjective Patient Comments Patient Comments My left ankle always just feels like it is twisted in my shoe PT-OP-F Manual Assessment Start: 09/05/19 13:49 Freq: Status: Active Protocol: Document 03/23/20 12:05 DCW (Rec: 03/23/20 13:38 DCW [id number]) Manual Assessments Other Manual Assessments Other Manual Assessments Collapsed arch on L Ground to navicular bone; L:3. 2 cm, R:4.6 cm PT-OP-J Posture/Palpation/Skin Start: 03/23/20 13:31 Freq: Status: Active Protocol: Document 03/23/20 12:05 DCW (Rec: 03/23/20 13:38 DCW [id number]) Skin Assessment Circumference Measurement 2 Location Right Figure-8 Measurement (Centimeters) 57.6 Comments Left Figure-8: 53.2 1 Location Right transmalleolar Measurement (Centimeters) 28.9 Comments Left transmalleolar: 26.1 PT-OP-K Range of Motion Start: 09/05/19 13:49 Freq: Status: Active Protocol: Document 03/23/20 12:05 DCW (Rec: 03/23/20 13:38 DCW [id number]) Ankle and Foot Goniometric Range of Motion Ankle and Foot Measured in Degrees Right Active Testing Position Sitting Dorsiflexion with Knee Flexed 8 Plantarflexion 50 Inversion 38 Eversion 20 Left Active Ankle/Foot ROM WFL No Testing Position Sitting Dorsiflexion with Knee Flexed 0 Plantarflexion 43 Inversion 20 Eversion 18 PT-OP-L Special Tests Start: 09/05/19 13:49 Freq: Status: Active Protocol: Document 02/10/20 10:43 DCW (Rec: 02/10/20 11:09 DCW [id number]) Special Tests Lumbar Spine Special Tests Manual Traction Comments R long-axis traction provided substantial relief for pt Hip Special Tests Straight Leg Raise Test Results Negative Piriformis Test Results Negative SANDRA Test Results Ispilateral pain bilaterally Scour Test Test Results Negative PT-OP-M Strength Start: 09/05/19 13:49 Freq: Status: Active Protocol: Document 03/23/20 12:05 DCW (Rec: 03/23/20 13:38 DCW [id number]) Ankle/Foot Strength Ankle and Foot Manual Muscle Testing Right Dorsiflexion (L4) 5 Normal Plantarflexion (S1) 4- Good- Inversion 4 Good Eversion (S1) 4+ Good+ Left Dorsiflexion (L4) 4+ Good+ Plantarflexion (S1) 3+ Fair+ Inversion 4 Good Eversion (S1) 4 Good PT-OP-Q Treatments Start: 09/05/19 13:49 Freq: Status: Active Protocol: Document 03/23/20 12:05 DCW (Rec: 03/23/20 13:42 DCW [id number]) Therapeutic Exercises Sitting Exercises 3 Sitting Exercise Name Ankle PF/DF Side left Resistance Lv 2 Equipment Used T-band 2 Sitting Exercise Name Towel grab Side left Comments Intrinsic toe flexors 1 Sitting Exercise Name [place] pick-up Side left Comments Intrinsic toe flexors PT-OP-R Modalities Start: 09/05/19 13:49 Freq: Status: Active Protocol: Document 03/23/20 12:05 DCW (Rec: 03/23/20 13:42 DCW [id number]) Electric Stimulation Electric Stimulation Interferential Current (IFC) Body Location R hip/low back Cycle Continuous Patient Position Sidelying Combined With Heat/Cold Hot Pack PT-OP-T Assessment and Plan Start: 09/05/19 13:49 Freq: Status: Active Protocol: Document 03/23/20 12:00 DCW (Rec: 03/23/20 17:09 DCW [id number]) Physical Therapy Assessment Impairments Impairments Functional Mobility,Pain,ROM, Soft Tissue Mobility,Strength, Tone Goals Seven Impairment Restricted left ankle ROM Nursing Home Goal (LTG) Pt's ROM to improve from 0?->8 ? Dorsiflexion and 20?->35? Inversion LTG Duration 05/23/20 Six Impairment Pt exhibits collapsed L arch, navicular 1.4 cm closer to ground in standing Plasma Specialist Goal (LTG) L navicular measured at 4 cm from ground in standing LTG Duration 05/23/20 Five Impairment LEFS score of 27/80 Plasma Specialist Goal (LTG) LEFS score of 35/80 LTG Duration 04/12/20 Four Impairment Right hip weakness Plasma Specialist Goal (LTG) Patient will exhibit 1/2 grade increase in MMT to right adductors for improvement of functional weight bearing mobility. LTG Duration 04/12/20 Three Impairment Pt unable to stand longer than 10 minutes without increased symptoms Nursing Home Goal (LTG) Pt to be able to stand 25 minutes with no increase in symptoms LTG Duration 04/12/20 Two Impairment Pt has difficulty donning and doffing footwear Plasma Specialist Goal (LTG) Pt to exhibit moderate adductor tone to allow her to don and doff footwear without assistance LTG Duration 04/12/20 One Impairment Pt does not have an appropriate home exercise program Short Term Goal (STG) Pt to be independent and compliant with an appropriate home exercise program STG Duration 03/12/20 Assessment Summary Assessment Pt presents with mild R ankle edema and weakness, decreased ROM, and a collapsed arch on her left foot. Pt should benefit from skilled therapy focused on improving strength and mobility of her ankle, as well as continuing to address her ongoing pain and immobility in her hips and back. Physical Therapy Plan Frequency and Duration Frequency of Treatment 2x/Week Duration of Treatment 3 months Plan of Care Start Date 03/23/20 Plan of Care End Date 06/21/20 Therapeutic Interventions Therapeutic Interventions Home Exercise Program,Joint Mobilizations,Manual Therapy, Patient/Caregiver Education, Self-Care/Home Management,Soft Tissue Mobilization, Therapeutic Exercises Modalities Cold Pack/Ice Massage,Electric Stimulation,Hot Packs Next Visit Focus/Plan Next Note Type Treatment Note Next Visit Plan STM, Flexibility/soft tissue stretching, hip strengthening, ankle ROM, ankle/foot strengthening
--- NOTE | 2020-03-23 17:10 | PT.OPPOC ---
Physical, Occupational & Speech Therapy At [facility] Current Diagnoses Pain in right hip (03/23/20) Stiffness of right hip, not elsewhere classified (03/23/20) Pain in right foot (03/23/20) Pain in left foot (03/23/20) Weakness (03/23/20) Visit Care Team Role Provider Type Marcello Salgado DPM Referring Provider Non-Staff Specialty: Podiatry Address: [address] [place], [address] Email: Wilian Booth MD Attending Provider Physician Primary Care Provider Specialty: Family Practice Address: [address] [place], [address] Email: [email or web address] Plan Of Care PT-OP-T Assessment and Plan Start: 09/05/19 13:49 Freq: Status: Active Protocol: Document 03/23/20 12:00 DCW (Rec: 03/23/20 17:09 DCW [id number]) Physical Therapy Assessment Impairments Impairments Functional Mobility,Pain,ROM, Soft Tissue Mobility,Strength, Tone Goals Seven Impairment Restricted left ankle ROM Pool Player Goal (LTG) Pt's ROM to improve from 0?->8 ? Dorsiflexion and 20?->35? Inversion LTG Duration 05/23/20 Six Impairment Pt exhibits collapsed L arch, navicular 1.4 cm closer to ground in standing Pool Player Goal (LTG) L navicular measured at 4 cm from ground in standing LTG Duration 05/23/20 Five Impairment LEFS score of 27/80 Pool Player Goal (LTG) LEFS score of 35/80 LTG Duration 04/12/20 Four Impairment Right hip weakness Mcfp Goal (LTG) Patient will exhibit 1/2 grade increase in MMT to right adductors for improvement of functional weight bearing mobility. LTG Duration 04/12/20 Three Impairment Pt unable to stand longer than 10 minutes without increased symptoms Pool Player Goal (LTG) Pt to be able to stand 25 minutes with no increase in symptoms LTG Duration 04/12/20 Two Impairment Pt has difficulty donning and doffing footwear Mcfp Goal (LTG) Pt to exhibit moderate adductor tone to allow her to don and doff footwear without assistance LTG Duration 04/12/20 One Impairment Pt does not have an appropriate home exercise program Short Term Goal (STG) Pt to be independent and compliant with an appropriate home exercise program STG Duration 03/12/20 Assessment Summary Assessment Pt presents with mild R ankle edema and weakness, decreased ROM, and a collapsed arch on her left foot. Pt should benefit from skilled therapy focused on improving strength and mobility of her ankle, as well as continuing to address her ongoing pain and immobility in her hips and back. Physical Therapy Plan Frequency and Duration Frequency of Treatment 2x/Week Duration of Treatment 3 months Plan of Care Start Date 03/23/20 Plan of Care End Date 06/21/20 Therapeutic Interventions Therapeutic Interventions Home Exercise Program,Joint Mobilizations,Manual Therapy, Patient/Caregiver Education, Self-Care/Home Management,Soft Tissue Mobilization, Therapeutic Exercises Modalities Cold Pack/Ice Massage,Electric Stimulation,Hot Packs Next Visit Focus/Plan Next Note Type Treatment Note Next Visit Plan STM, Flexibility/soft tissue stretching, hip strengthening, ankle ROM, ankle/foot strengthening Plan of Care Dates Plan of Care Start Date 03/23/20 Plan of Care End Date 06/21/20 Electronically Signed by: Dion Riggins, PT 03/23/20 [id number] Please Sign and Return: I have reviewed this Plan of Care and certify that the skilled therapy services above are required to meet the patient?s needs. Physician Signature Date Printed Name and Credentials Clinical Instructor Signature Printed Name and Credentials
--- NOTE | 2020-03-26 15:17 | PT.OTN ---
Current Diagnoses Pain in right hip (03/26/20) Stiffness of right hip, not elsewhere classified (03/26/20) Pain in right foot (03/26/20) Pain in left foot (03/26/20) Weakness (03/26/20) Physical Therapy Treatment Note PT-OP-A Visit Information Start: 09/05/19 13:49 Freq: Status: Active Protocol: Document 03/26/20 14:30 DCW (Rec: 03/26/20 15:17 DCW [id number]) Out-Patient Physical Therapy Visit Information Visit Information Visit Type Treatment Note Visit Start Time 14:30 Visit Stop Time 15:20 Total Visit Minutes 50 Visit Number 14 Number of TECHNICAL MARKETING ENGINEER Visits 0 Evaluation Information Evaluation Date 09/04/19 PT-OP-B Current Condition Start: 09/05/19 13:49 Freq: Status: Active Protocol: Document 03/23/20 12:05 DCW (Rec: 03/23/20 13:38 DCW [id number]) Current Condition History of Current Condition History of Current Condition Pt is a 59 year old female presenting with a one month history of pain at her proximal medial right hip/ groin. Pt reports she was having slight discomfort in the area for a few weeks, and then slept with a heating pad on the area one night, and woke up in much more pain. Pt reports sh has been diagnosed with severe arthritis and sarcoidosis, which she has recently started medication for. Pt reports she is unable to sit with her legs crossed, and needs help occasionally to don or doff her socks and shoes. Pt also notes that she is unable to stand longer than 10 minutes, but that is not a big priority for me. ADDENDUM 03/23/20: Pt has a new referral for bilateral foot pain, would like this addressed today. Pt reports she has a multi-year history of pain, feels like her left foot is twisted inside my shoe, and feels that her right ankle is constantly swollen. PT-OP-C Subjective Start: 09/05/19 13:49 Freq: Status: Active Protocol: Document 03/26/20 14:30 DCW (Rec: 03/26/20 15:17 DCW [id number]) OP-PT Subjective Patient Comments Patient Comments Can you please check my blood pressure? I've had a splitting headache the last few days, and that's the only thing I haven't checked. PT-OP-F Manual Assessment Start: 09/05/19 13:49 Freq: Status: Active Protocol: Document 03/23/20 12:05 DCW (Rec: 03/23/20 13:38 DCW [id number]) Manual Assessments Other Manual Assessments Other Manual Assessments Collapsed arch on L Ground to navicular bone; L:3. 2 cm, R:4.6 cm PT-OP-J Posture/Palpation/Skin Start: 03/23/20 13:31 Freq: Status: Active Protocol: Document 03/23/20 12:05 DCW (Rec: 03/23/20 13:38 DCW [id number]) Skin Assessment Circumference Measurement 2 Location Right Figure-8 Measurement (Centimeters) 57.6 Comments Left Figure-8: 53.2 1 Location Right transmalleolar Measurement (Centimeters) 28.9 Comments Left transmalleolar: 26.1 PT-OP-K Range of Motion Start: 09/05/19 13:49 Freq: Status: Active Protocol: Document 03/23/20 12:05 DCW (Rec: 03/23/20 13:38 DCW [id number]) Ankle and Foot Goniometric Range of Motion Ankle and Foot Right Active Testing Position Sitting Dorsiflexion with Knee Flexed 8 Plantarflexion 50 Inversion 38 Eversion 20 Left Active Ankle/Foot ROM WFL No Testing Position Sitting Dorsiflexion with Knee Flexed 0 Plantarflexion 43 Inversion 20 Eversion 18 PT-OP-L Special Tests Start: 09/05/19 13:49 Freq: Status: Active Protocol: Document 02/10/20 10:43 DCW (Rec: 02/10/20 11:09 DCW [id number]) Special Tests Lumbar Spine Special Tests Manual Traction Comments R long-axis traction provided substantial relief for pt Hip Special Tests Straight Leg Raise Test Results Negative Piriformis Test Results Negative SANDRA Test Results Ispilateral pain bilaterally Scour Test Test Results Negative PT-OP-M Strength Start: 09/05/19 13:49 Freq: Status: Active Protocol: Document 03/23/20 12:05 DCW (Rec: 03/23/20 13:38 DCW [id number]) Ankle/Foot Strength Ankle and Foot Manual Muscle Testing Right Dorsiflexion (L4) 5 Normal Plantarflexion (S1) 4- Good- Inversion 4 Good Eversion (S1) 4+ Good+ Left Dorsiflexion (L4) 4+ Good+ Plantarflexion (S1) 3+ Fair+ Inversion 4 Good Eversion (S1) 4 Good PT-OP-Q Treatments Start: 09/05/19 13:49 Freq: Status: Active Protocol: Document 03/26/20 14:30 DCW (Rec: 03/26/20 15:17 DCW [id number]) Manual Therapy Treatment Soft Tissue Mobilization 4 Body Location R Piriformis Mobilization Type Strumming,Sustained Pressure, Trigger Point Release Intensity/Depth Deep Body Position Sidelying 3 Body Location B ITB Mobilization Type Strumming,Sustained Pressure, Trigger Point Release Intensity/Depth Superficial Body Position Hooklying 2 Body Location B Psoas Mobilization Type Strumming,Sustained Pressure Body Position Hooklying 1 Body Location B Adductor Mobilization Type Strumming,Sustained Pressure, Trigger Point Release Intensity/Depth Superficial Body Position Hooklying Joint Mobilizations 1 Joint Talofibular joint Direction Inferior Grade III Body Position Sitting PT-OP-R Modalities Start: 09/05/19 13:49 Freq: Status: Active Protocol: Document 03/26/20 14:30 DCW (Rec: 03/26/20 15:17 DCW [id number]) Electric Stimulation Electric Stimulation Interferential Current (IFC) Body Location R hip/low back Cycle Continuous Patient Position Sidelying Combined With Heat/Cold Hot Pack PT-OP-T Assessment and Plan Start: 09/05/19 13:49 Freq: Status: Active Protocol: Document 03/26/20 14:30 DCW (Rec: 03/26/20 15:17 DCW [id number]) Physical Therapy Assessment Impairments Impairments Functional Mobility,Pain,ROM, Soft Tissue Mobility,Strength, Tone Goals Seven Impairment Restricted left ankle ROM Technical Instructor Goal (LTG) Pt's ROM to improve from 0?->8 ? Dorsiflexion and 20?->35? Inversion LTG Duration 05/23/20 Six Impairment Pt exhibits collapsed L arch, navicular 1.4 cm closer to ground in standing Senior Care Goal (LTG) L navicular measured at 4 cm from ground in standing LTG Duration 05/23/20 Five Impairment LEFS score of 27/80 Technical Instructor Goal (LTG) LEFS score of 35/80 LTG Duration 04/12/20 Four Impairment Right hip weakness Technical Instructor Goal (LTG) Patient will exhibit 1/2 grade increase in MMT to right adductors for improvement of functional weight bearing mobility. LTG Duration 04/12/20 Three Impairment Pt unable to stand longer than 10 minutes without increased symptoms Technical Instructor Goal (LTG) Pt to be able to stand 25 minutes with no increase in symptoms LTG Duration 04/12/20 Two Impairment Pt has difficulty donning and doffing footwear Technical Instructor Goal (LTG) Pt to exhibit moderate adductor tone to allow her to don and doff footwear without assistance LTG Duration 04/12/20 One Impairment Pt does not have an appropriate home exercise program Short Term Goal (STG) Pt to be independent and compliant with an appropriate home exercise program STG Duration 03/12/20 Assessment Summary Assessment BP checked per pt request; 140 /82. Pt tolerated STM better today, less complaints of pain and discomfort. Physical Therapy Plan Frequency and Duration Frequency of Treatment 2x/Week Duration of Treatment 3 months Plan of Care Start Date 03/23/20 Plan of Care End Date 06/21/20 Therapeutic Interventions Therapeutic Interventions Home Exercise Program,Joint Mobilizations,Manual Therapy, Patient/Caregiver Education, Self-Care/Home Management,Soft Tissue Mobilization, Therapeutic Exercises Modalities Cold Pack/Ice Massage,Electric Stimulation,Hot Packs Next Visit Focus/Plan Next Note Type Treatment Note Next Visit Plan STM, Flexibility/soft tissue stretching, hip strengthening, ankle ROM, ankle/foot strengthening
--- NOTE | 2020-03-30 11:16 | PT.OTN ---
Current Diagnoses Pain in right hip (03/30/20) Stiffness of right hip, not elsewhere classified (03/30/20) Pain in right foot (03/30/20) Pain in left foot (03/30/20) Weakness (03/30/20) Physical Therapy Treatment Note PT-OP-A Visit Information Start: 09/05/19 13:49 Freq: Status: Active Protocol: Document 03/30/20 10:35 DCW (Rec: 03/30/20 11:14 DCW [id number]) Out-Patient Physical Therapy Visit Information Visit Information Visit Type Treatment Note Visit Note 5 min late Visit Start Time 10:35 Visit Stop Time 11:30 Total Visit Minutes 55 Visit Number 15 Number of PHYSICALLY IMPAIRED TEACHER Visits 0 Evaluation Information Evaluation Date 09/04/19 PT-OP-B Current Condition Start: 09/05/19 13:49 Freq: Status: Active Protocol: Document 03/23/20 12:05 DCW (Rec: 03/23/20 13:38 DCW [id number]) Current Condition History of Current Condition History of Current Condition Pt is a 59 year old female presenting with a one month history of pain at her proximal medial right hip/ groin. Pt reports she was having slight discomfort in the area for a few weeks, and then slept with a heating pad on the area one night, and woke up in much more pain. Pt reports sh has been diagnosed with severe arthritis and sarcoidosis, which she has recently started medication for. Pt reports she is unable to sit with her legs crossed, and needs help occasionally to don or doff her socks and shoes. Pt also notes that she is unable to stand longer than 10 minutes, but that is not a big priority for me. ADDENDUM 03/23/20: Pt has a new referral for bilateral foot pain, would like this addressed today. Pt reports she has a multi-year history of pain, feels like her left foot is twisted inside my shoe, and feels that her right ankle is constantly swollen. PT-OP-C Subjective Start: 09/05/19 13:49 Freq: Status: Active Protocol: Document 03/30/20 10:35 DCW (Rec: 03/30/20 11:14 DCW [id number]) OP-PT Subjective Patient Comments Patient Comments Pt reports she is doing okay today, feels that her foot exercises have really been helping. PT-OP-F Manual Assessment Start: 09/05/19 13:49 Freq: Status: Active Protocol: Document 03/23/20 12:05 DCW (Rec: 03/23/20 13:38 DCW [id number]) Manual Assessments Other Manual Assessments Other Manual Assessments Collapsed arch on L Ground to navicular bone; L:3. 2 cm, R:4.6 cm PT-OP-J Posture/Palpation/Skin Start: 03/23/20 13:31 Freq: Status: Active Protocol: Document 03/23/20 12:05 DCW (Rec: 03/23/20 13:38 DCW [id number]) Skin Assessment Circumference Measurement 2 Location Right Figure-8 Measurement (Centimeters) 57.6 Comments Left Figure-8: 53.2 1 Location Right transmalleolar Measurement (Centimeters) 28.9 Comments Left transmalleolar: 26.1 PT-OP-K Range of Motion Start: 09/05/19 13:49 Freq: Status: Active Protocol: Document 03/23/20 12:05 DCW (Rec: 03/23/20 13:38 DCW [id number]) Ankle and Foot Goniometric Range of Motion Ankle and Foot Right Active Testing Position Sitting Dorsiflexion with Knee Flexed 8 Plantarflexion 50 Inversion 38 Eversion 20 Left Active Ankle/Foot ROM WFL No Testing Position Sitting Dorsiflexion with Knee Flexed 0 Plantarflexion 43 Inversion 20 Eversion 18 PT-OP-L Special Tests Start: 09/05/19 13:49 Freq: Status: Active Protocol: Document 02/10/20 10:43 DCW (Rec: 02/10/20 11:09 DCW [id number]) Special Tests Lumbar Spine Special Tests Manual Traction Comments R long-axis traction provided substantial relief for pt Hip Special Tests Straight Leg Raise Test Results Negative Piriformis Test Results Negative SANDRA Test Results Ispilateral pain bilaterally Scour Test Test Results Negative PT-OP-M Strength Start: 09/05/19 13:49 Freq: Status: Active Protocol: Document 03/23/20 12:05 DCW (Rec: 03/23/20 13:38 DCW [id number]) Ankle/Foot Strength Ankle and Foot Manual Muscle Testing Right Dorsiflexion (L4) 5 Normal Plantarflexion (S1) 4- Good- Inversion 4 Good Eversion (S1) 4+ Good+ Left Dorsiflexion (L4) 4+ Good+ Plantarflexion (S1) 3+ Fair+ Inversion 4 Good Eversion (S1) 4 Good PT-OP-Q Treatments Start: 09/05/19 13:49 Freq: Status: Active Protocol: Document 03/30/20 10:35 DCW (Rec: 03/30/20 11:14 DCW [id number]) Manual Therapy Treatment Soft Tissue Mobilization 4 Body Location R Piriformis Mobilization Type Strumming,Sustained Pressure, Trigger Point Release Intensity/Depth Deep Body Position Sidelying 3 Body Location B ITB Mobilization Type Strumming,Sustained Pressure, Trigger Point Release Intensity/Depth Superficial Body Position Hooklying 2 Body Location B Psoas Mobilization Type Strumming,Sustained Pressure Body Position Hooklying 1 Body Location B Adductor Mobilization Type Strumming,Sustained Pressure, Trigger Point Release Intensity/Depth Superficial Body Position Hooklying Joint Mobilizations 1 Joint Talofibular joint Direction Inferior Grade III Body Position Sitting PT-OP-R Modalities Start: 09/05/19 13:49 Freq: Status: Active Protocol: Document 03/30/20 10:35 DCW (Rec: 03/30/20 11:14 DCW [id number]) Electric Stimulation Electric Stimulation Interferential Current (IFC) Body Location R hip/low back Cycle Continuous Patient Position Sidelying Combined With Heat/Cold Hot Pack PT-OP-T Assessment and Plan Start: 09/05/19 13:49 Freq: Status: Active Protocol: Document 03/30/20 10:35 DCW (Rec: 03/30/20 11:14 DCW [id number]) Physical Therapy Assessment Impairments Impairments Functional Mobility,Pain,ROM, Soft Tissue Mobility,Strength, Tone Goals Seven Impairment Restricted left ankle ROM Risk Intern Goal (LTG) Pt's ROM to improve from 0?->8 ? Dorsiflexion and 20?->35? Inversion LTG Duration 05/23/20 Six Impairment Pt exhibits collapsed L arch, navicular 1.4 cm closer to ground in standing Risk Intern Goal (LTG) L navicular measured at 4 cm from ground in standing LTG Duration 05/23/20 Five Impairment LEFS score of 27/80 Jail Goal (LTG) LEFS score of 35/80 LTG Duration 04/12/20 Four Impairment Right hip weakness Jail Goal (LTG) Patient will exhibit 1/2 grade increase in MMT to right adductors for improvement of functional weight bearing mobility. LTG Duration 04/12/20 Three Impairment Pt unable to stand longer than 10 minutes without increased symptoms Jail Goal (LTG) Pt to be able to stand 25 minutes with no increase in symptoms LTG Duration 04/12/20 Two Impairment Pt has difficulty donning and doffing footwear Jail Goal (LTG) Pt to exhibit moderate adductor tone to allow her to don and doff footwear without assistance LTG Duration 04/12/20 One Impairment Pt does not have an appropriate home exercise program Short Term Goal (STG) Pt to be independent and compliant with an appropriate home exercise program STG Duration 03/12/20 Assessment Summary Assessment Pt improving mobility of ankle , reporting less low back pain . Pt tolerating STM much better. Physical Therapy Plan Frequency and Duration Frequency of Treatment 2x/Week Duration of Treatment 3 months Plan of Care Start Date 03/23/20 Plan of Care End Date 06/21/20 Therapeutic Interventions Therapeutic Interventions Home Exercise Program,Joint Mobilizations,Manual Therapy, Patient/Caregiver Education, Self-Care/Home Management,Soft Tissue Mobilization, Therapeutic Exercises Modalities Cold Pack/Ice Massage,Electric Stimulation,Hot Packs Next Visit Focus/Plan Next Note Type Treatment Note Next Visit Plan STM, Flexibility/soft tissue stretching, hip strengthening, ankle ROM, ankle/foot strengthening
--- NOTE | 2020-04-01 11:12 | PT.OTN ---
Current Diagnoses Pain in right hip (04/01/20) Stiffness of right hip, not elsewhere classified (04/01/20) Pain in right foot (04/01/20) Pain in left foot (04/01/20) Weakness (04/01/20) Physical Therapy Treatment Note PT-OP-A Visit Information Start: 09/05/19 13:49 Freq: Status: Active Protocol: Document 04/01/20 10:30 DCW (Rec: 04/01/20 11:12 DCW [id number]) Out-Patient Physical Therapy Visit Information Visit Information Visit Type Treatment Note Visit Start Time 10:30 Visit Stop Time 11:25 Total Visit Minutes 55 Visit Number 16 Number of ROCK ROOM WORKER Visits 0 Evaluation Information Evaluation Date 09/04/19 PT-OP-B Current Condition Start: 09/05/19 13:49 Freq: Status: Active Protocol: Document 03/23/20 12:05 DCW (Rec: 03/23/20 13:38 DCW [id number]) Current Condition History of Current Condition History of Current Condition Pt is a 59 year old female presenting with a one month history of pain at her proximal medial right hip/ groin. Pt reports she was having slight discomfort in the area for a few weeks, and then slept with a heating pad on the area one night, and woke up in much more pain. Pt reports sh has been diagnosed with severe arthritis and sarcoidosis, which she has recently started medication for. Pt reports she is unable to sit with her legs crossed, and needs help occasionally to don or doff her socks and shoes. Pt also notes that she is unable to stand longer than 10 minutes, but that is not a big priority for me. ADDENDUM 03/23/20: Pt has a new referral for bilateral foot pain, would like this addressed today. Pt reports she has a multi-year history of pain, feels like her left foot is twisted inside my shoe, and feels that her right ankle is constantly swollen. PT-OP-C Subjective Start: 09/05/19 13:49 Freq: Status: Active Protocol: Document 04/01/20 10:30 DCW (Rec: 04/01/20 11:12 DCW [id number]) OP-PT Subjective Patient Comments Patient Comments Pt reports that she feels her sciatica has been much better recently since therapy began on her foot. PT-OP-F Manual Assessment Start: 09/05/19 13:49 Freq: Status: Active Protocol: Document 03/23/20 12:05 DCW (Rec: 03/23/20 13:38 DCW [id number]) Manual Assessments Other Manual Assessments Other Manual Assessments Collapsed arch on L Ground to navicular bone; L:3. 2 cm, R:4.6 cm PT-OP-J Posture/Palpation/Skin Start: 03/23/20 13:31 Freq: Status: Active Protocol: Document 03/23/20 12:05 DCW (Rec: 03/23/20 13:38 DCW [id number]) Skin Assessment Circumference Measurement 2 Location Right Figure-8 Measurement (Centimeters) 57.6 Comments Left Figure-8: 53.2 1 Location Right transmalleolar Measurement (Centimeters) 28.9 Comments Left transmalleolar: 26.1 PT-OP-K Range of Motion Start: 09/05/19 13:49 Freq: Status: Active Protocol: Document 03/23/20 12:05 DCW (Rec: 03/23/20 13:38 DCW [id number]) Ankle and Foot Goniometric Range of Motion Ankle and Foot Right Active Testing Position Sitting Dorsiflexion with Knee Flexed 8 Plantarflexion 50 Inversion 38 Eversion 20 Left Active Ankle/Foot ROM WFL No Testing Position Sitting Dorsiflexion with Knee Flexed 0 Plantarflexion 43 Inversion 20 Eversion 18 PT-OP-L Special Tests Start: 09/05/19 13:49 Freq: Status: Active Protocol: Document 02/10/20 10:43 DCW (Rec: 02/10/20 11:09 DCW [id number]) Special Tests Lumbar Spine Special Tests Manual Traction Comments R long-axis traction provided substantial relief for pt Hip Special Tests Straight Leg Raise Test Results Negative Piriformis Test Results Negative SANDRA Test Results Ispilateral pain bilaterally Scour Test Test Results Negative PT-OP-M Strength Start: 09/05/19 13:49 Freq: Status: Active Protocol: Document 03/23/20 12:05 DCW (Rec: 03/23/20 13:38 DCW [id number]) Ankle/Foot Strength Ankle and Foot Manual Muscle Testing Right Dorsiflexion (L4) 5 Normal Plantarflexion (S1) 4- Good- Inversion 4 Good Eversion (S1) 4+ Good+ Left Dorsiflexion (L4) 4+ Good+ Plantarflexion (S1) 3+ Fair+ Inversion 4 Good Eversion (S1) 4 Good PT-OP-Q Treatments Start: 09/05/19 13:49 Freq: Status: Active Protocol: Document 04/01/20 10:30 DCW (Rec: 04/01/20 11:12 DCW [id number]) Manual Therapy Treatment Soft Tissue Mobilization 4 Body Location R Piriformis Mobilization Type Strumming,Sustained Pressure, Trigger Point Release Intensity/Depth Deep Body Position Sidelying 3 Body Location B ITB Mobilization Type Strumming,Sustained Pressure, Trigger Point Release Intensity/Depth Superficial Body Position Hooklying 2 Body Location B Psoas Mobilization Type Strumming,Sustained Pressure Body Position Hooklying 1 Body Location B Adductor Mobilization Type Strumming,Sustained Pressure, Trigger Point Release Intensity/Depth Superficial Body Position Hooklying Joint Mobilizations 1 Joint Talofibular joint Direction Inferior Grade III Body Position Sitting PT-OP-R Modalities Start: 09/05/19 13:49 Freq: Status: Active Protocol: Document 04/01/20 10:30 DCW (Rec: 04/01/20 11:12 DCW [id number]) Electric Stimulation Electric Stimulation Interferential Current (IFC) Body Location R hip/low back Cycle Continuous Patient Position Sidelying Combined With Heat/Cold Hot Pack PT-OP-T Assessment and Plan Start: 09/05/19 13:49 Freq: Status: Active Protocol: Document 04/01/20 10:30 DCW (Rec: 04/01/20 11:12 DCW [id number]) Physical Therapy Assessment Impairments Impairments Functional Mobility,Pain,ROM, Soft Tissue Mobility,Strength, Tone Goals Seven Impairment Restricted left ankle ROM Silo Worker Goal (LTG) Pt's ROM to improve from 0?->8 ? Dorsiflexion and 20?->35? Inversion LTG Duration 05/23/20 Six Impairment Pt exhibits collapsed L arch, navicular 1.4 cm closer to ground in standing Mcfp Goal (LTG) L navicular measured at 4 cm from ground in standing LTG Duration 05/23/20 Five Impairment LEFS score of 27/80 Mcfp Goal (LTG) LEFS score of 35/80 LTG Duration 04/12/20 Four Impairment Right hip weakness Silo Worker Goal (LTG) Patient will exhibit 1/2 grade increase in MMT to right adductors for improvement of functional weight bearing mobility. LTG Duration 04/12/20 Three Impairment Pt unable to stand longer than 10 minutes without increased symptoms Silo Worker Goal (LTG) Pt to be able to stand 25 minutes with no increase in symptoms LTG Duration 04/12/20 Two Impairment Pt has difficulty donning and doffing footwear Silo Worker Goal (LTG) Pt to exhibit moderate adductor tone to allow her to don and doff footwear without assistance LTG Duration 04/12/20 One Impairment Pt does not have an appropriate home exercise program Short Term Goal (STG) Pt to be independent and compliant with an appropriate home exercise program STG Duration 03/12/20 Assessment Summary Assessment Pt overall displaying reduction in tone and tenderness in hips and back, showing improved ankle mobility. Physical Therapy Plan Frequency and Duration Frequency of Treatment 2x/Week Duration of Treatment 3 months Plan of Care Start Date 03/23/20 Plan of Care End Date 06/21/20 Therapeutic Interventions Therapeutic Interventions Home Exercise Program,Joint Mobilizations,Manual Therapy, Patient/Caregiver Education, Self-Care/Home Management,Soft Tissue Mobilization, Therapeutic Exercises Modalities Cold Pack/Ice Massage,Electric Stimulation,Hot Packs Next Visit Focus/Plan Next Note Type Treatment Note Next Visit Plan STM, Flexibility/soft tissue stretching, hip strengthening, ankle ROM, ankle/foot strengthening
--- NOTE | 2020-04-14 11:59 | PT.OTN ---
Current Diagnoses Pain in right hip (04/14/20) Stiffness of right hip, not elsewhere classified (04/14/20) Pain in right foot (04/14/20) Pain in left foot (04/14/20) Weakness (04/14/20) Physical Therapy Treatment Note PT-OP-A Visit Information Start: 09/05/19 13:49 Freq: Status: Active Protocol: Document 04/14/20 11:15 DCW (Rec: 04/14/20 11:58 DCW [id number]) Out-Patient Physical Therapy Visit Information Visit Information Visit Type Treatment Note Visit Start Time 11:15 Visit Stop Time 12:10 Total Visit Minutes 55 Visit Number 17 Number of IRON MINER Visits 0 Evaluation Information Evaluation Date 09/04/19 PT-OP-B Current Condition Start: 09/05/19 13:49 Freq: Status: Active Protocol: Document 03/23/20 12:05 DCW (Rec: 03/23/20 13:38 DCW [id number]) Current Condition History of Current Condition History of Current Condition Pt is a 59 year old female presenting with a one month history of pain at her proximal medial right hip/ groin. Pt reports she was having slight discomfort in the area for a few weeks, and then slept with a heating pad on the area one night, and woke up in much more pain. Pt reports sh has been diagnosed with severe arthritis and sarcoidosis, which she has recently started medication for. Pt reports she is unable to sit with her legs crossed, and needs help occasionally to don or doff her socks and shoes. Pt also notes that she is unable to stand longer than 10 minutes, but that is not a big priority for me. ADDENDUM 03/23/20: Pt has a new referral for bilateral foot pain, would like this addressed today. Pt reports she has a multi-year history of pain, feels like her left foot is twisted inside my shoe, and feels that her right ankle is constantly swollen. PT-OP-C Subjective Start: 09/05/19 13:49 Freq: Status: Active Protocol: Document 04/14/20 11:15 DCW (Rec: 04/14/20 11:58 DCW [id number]) OP-PT Subjective Patient Comments Patient Comments Pt reports she has been working on her foot a lot more , and feels like she is seeing progress. PT-OP-F Manual Assessment Start: 09/05/19 13:49 Freq: Status: Active Protocol: Document 03/23/20 12:05 DCW (Rec: 03/23/20 13:38 DCW [id number]) Manual Assessments Other Manual Assessments Other Manual Assessments Collapsed arch on L Ground to navicular bone; L:3. 2 cm, R:4.6 cm PT-OP-J Posture/Palpation/Skin Start: 03/23/20 13:31 Freq: Status: Active Protocol: Document 03/23/20 12:05 DCW (Rec: 03/23/20 13:38 DCW [id number]) Skin Assessment Circumference Measurement 2 Location Right Figure-8 Measurement (Centimeters) 57.6 Comments Left Figure-8: 53.2 1 Location Right transmalleolar Measurement (Centimeters) 28.9 Comments Left transmalleolar: 26.1 PT-OP-K Range of Motion Start: 09/05/19 13:49 Freq: Status: Active Protocol: Document 03/23/20 12:05 DCW (Rec: 03/23/20 13:38 DCW [id number]) Ankle and Foot Goniometric Range of Motion Ankle and Foot Right Active Testing Position Sitting Dorsiflexion with Knee Flexed 8 Plantarflexion 50 Inversion 38 Eversion 20 Left Active Ankle/Foot ROM WFL No Testing Position Sitting Dorsiflexion with Knee Flexed 0 Plantarflexion 43 Inversion 20 Eversion 18 PT-OP-L Special Tests Start: 09/05/19 13:49 Freq: Status: Active Protocol: Document 02/10/20 10:43 DCW (Rec: 02/10/20 11:09 DCW [id number]) Special Tests Lumbar Spine Special Tests Manual Traction Comments R long-axis traction provided substantial relief for pt Hip Special Tests Straight Leg Raise Test Results Negative Piriformis Test Results Negative SANDRA Test Results Ispilateral pain bilaterally Scour Test Test Results Negative PT-OP-M Strength Start: 09/05/19 13:49 Freq: Status: Active Protocol: Document 03/23/20 12:05 DCW (Rec: 03/23/20 13:38 DCW [id number]) Ankle/Foot Strength Ankle and Foot Manual Muscle Testing Right Dorsiflexion (L4) 5 Normal Plantarflexion (S1) 4- Good- Inversion 4 Good Eversion (S1) 4+ Good+ Left Dorsiflexion (L4) 4+ Good+ Plantarflexion (S1) 3+ Fair+ Inversion 4 Good Eversion (S1) 4 Good PT-OP-Q Treatments Start: 09/05/19 13:49 Freq: Status: Active Protocol: Document 04/14/20 11:15 DCW (Rec: 04/14/20 11:58 DCW [id number]) Manual Therapy Treatment Soft Tissue Mobilization 5 Body Location R T-spine Paraspinals Mobilization Type Strumming,Sustained Pressure Body Position Sidelying 4 Body Location R Piriformis Mobilization Type Strumming,Sustained Pressure, Trigger Point Release Intensity/Depth Deep Body Position Sidelying 3 Body Location B ITB Mobilization Type Strumming,Sustained Pressure, Trigger Point Release Intensity/Depth Superficial Body Position Hooklying 2 Body Location B Psoas Mobilization Type Strumming,Sustained Pressure Body Position Hooklying 1 Body Location B Adductor Mobilization Type Strumming,Sustained Pressure, Trigger Point Release Intensity/Depth Superficial Body Position Hooklying Comments rolling pin to IT band Joint Mobilizations 1 Joint B Talofibular joint Direction Inferior Grade III Body Position Sitting PT-OP-R Modalities Start: 09/05/19 13:49 Freq: Status: Active Protocol: Document 04/14/20 11:15 DCW (Rec: 04/14/20 11:58 DCW [id number]) Electric Stimulation Electric Stimulation Interferential Current (IFC) Body Location R hip/low back Cycle Continuous Patient Position Sidelying Combined With Heat/Cold Hot Pack PT-OP-T Assessment and Plan Start: 09/05/19 13:49 Freq: Status: Active Protocol: Document 04/14/20 11:15 DCW (Rec: 04/14/20 11:58 DCW [id number]) Physical Therapy Assessment Impairments Impairments Functional Mobility,Pain,ROM, Soft Tissue Mobility,Strength, Tone Goals Seven Impairment Restricted left ankle ROM Instructional Services Librarian Goal (LTG) Pt's ROM to improve from 0?->8 ? Dorsiflexion and 20?->35? Inversion LTG Duration 05/23/20 Six Impairment Pt exhibits collapsed L arch, navicular 1.4 cm closer to ground in standing Shelter Goal (LTG) L navicular measured at 4 cm from ground in standing LTG Duration 05/23/20 Five Impairment LEFS score of 27/80 Instructional Services Librarian Goal (LTG) LEFS score of 35/80 LTG Duration 04/12/20 Four Impairment Right hip weakness Instructional Services Librarian Goal (LTG) Patient will exhibit 1/2 grade increase in MMT to right adductors for improvement of functional weight bearing mobility. LTG Duration 04/12/20 Three Impairment Pt unable to stand longer than 10 minutes without increased symptoms Instructional Services Librarian Goal (LTG) Pt to be able to stand 25 minutes with no increase in symptoms LTG Duration 04/12/20 Two Impairment Pt has difficulty donning and doffing footwear Shelter Goal (LTG) Pt to exhibit moderate adductor tone to allow her to don and doff footwear without assistance LTG Duration 04/12/20 One Impairment Pt does not have an appropriate home exercise program Short Term Goal (STG) Pt to be independent and compliant with an appropriate home exercise program STG Duration 03/12/20 Assessment Summary Assessment Pt tolerated treatment fairly well today, showing improved arch on left foot in standing, significantly less pronation. Physical Therapy Plan Frequency and Duration Frequency of Treatment 2x/Week Duration of Treatment 3 months Plan of Care Start Date 03/23/20 Plan of Care End Date 06/21/20 Therapeutic Interventions Therapeutic Interventions Home Exercise Program,Joint Mobilizations,Manual Therapy, Patient/Caregiver Education, Self-Care/Home Management,Soft Tissue Mobilization, Therapeutic Exercises Modalities Cold Pack/Ice Massage,Electric Stimulation,Hot Packs Next Visit Focus/Plan Next Note Type Treatment Note Next Visit Plan STM, Flexibility/soft tissue stretching, hip strengthening, ankle ROM, ankle/foot strengthening
--- NOTE | 2020-04-29 15:13 | PT.OTN ---
Current Diagnoses Pain in right hip (04/29/20) Stiffness of right hip, not elsewhere classified (04/29/20) Pain in right foot (04/29/20) Pain in left foot (04/29/20) Weakness (04/29/20) Physical Therapy Treatment Note PT-OP-A Visit Information Start: 09/05/19 13:49 Freq: Status: Active Protocol: Document 04/29/20 14:42 DCW (Rec: 04/29/20 15:13 DCW [id number]) Out-Patient Physical Therapy Visit Information Visit Information Visit Type Treatment Note Visit Note 12 min late Visit Start Time 14:42 Visit Stop Time 15:15 Total Visit Minutes 33 Visit Number 18 Number of ENAMEL DRIER Visits 0 Evaluation Information Evaluation Date 09/04/19 PT-OP-B Current Condition Start: 09/05/19 13:49 Freq: Status: Active Protocol: Document 03/23/20 12:05 DCW (Rec: 03/23/20 13:38 DCW [id number]) Current Condition History of Current Condition History of Current Condition Pt is a 59 year old female presenting with a one month history of pain at her proximal medial right hip/ groin. Pt reports she was having slight discomfort in the area for a few weeks, and then slept with a heating pad on the area one night, and woke up in much more pain. Pt reports sh has been diagnosed with severe arthritis and sarcoidosis, which she has recently started medication for. Pt reports she is unable to sit with her legs crossed, and needs help occasionally to don or doff her socks and shoes. Pt also notes that she is unable to stand longer than 10 minutes, but that is not a big priority for me. ADDENDUM 03/23/20: Pt has a new referral for bilateral foot pain, would like this addressed today. Pt reports she has a multi-year history of pain, feels like her left foot is twisted inside my shoe, and feels that her right ankle is constantly swollen. PT-OP-C Subjective Start: 09/05/19 13:49 Freq: Status: Active Protocol: Document 04/29/20 14:42 DCW (Rec: 04/29/20 15:13 DCW [id number]) OP-PT Subjective Patient Comments Patient Comments Pt reports she woke up with a splitting headache, and has not been able to get rid of it all day. PT-OP-F Manual Assessment Start: 09/05/19 13:49 Freq: Status: Active Protocol: Document 03/23/20 12:05 DCW (Rec: 03/23/20 13:38 DCW [id number]) Manual Assessments Other Manual Assessments Other Manual Assessments Collapsed arch on L Ground to navicular bone; L:3. 2 cm, R:4.6 cm PT-OP-J Posture/Palpation/Skin Start: 03/23/20 13:31 Freq: Status: Active Protocol: Document 03/23/20 12:05 DCW (Rec: 03/23/20 13:38 DCW [id number]) Skin Assessment Circumference Measurement 2 Location Right Figure-8 Measurement (Centimeters) 57.6 Comments Left Figure-8: 53.2 1 Location Right transmalleolar Measurement (Centimeters) 28.9 Comments Left transmalleolar: 26.1 PT-OP-K Range of Motion Start: 09/05/19 13:49 Freq: Status: Active Protocol: Document 03/23/20 12:05 DCW (Rec: 03/23/20 13:38 DCW [id number]) Ankle and Foot Goniometric Range of Motion Ankle and Foot Right Active Testing Position Sitting Dorsiflexion with Knee Flexed 8 Plantarflexion 50 Inversion 38 Eversion 20 Left Active Ankle/Foot ROM WFL No Testing Position Sitting Dorsiflexion with Knee Flexed 0 Plantarflexion 43 Inversion 20 Eversion 18 PT-OP-L Special Tests Start: 09/05/19 13:49 Freq: Status: Active Protocol: Document 02/10/20 10:43 DCW (Rec: 02/10/20 11:09 DCW [id number]) Special Tests Lumbar Spine Special Tests Manual Traction Comments R long-axis traction provided substantial relief for pt Hip Special Tests Straight Leg Raise Test Results Negative Piriformis Test Results Negative SANDRA Test Results Ispilateral pain bilaterally Scour Test Test Results Negative PT-OP-M Strength Start: 09/05/19 13:49 Freq: Status: Active Protocol: Document 03/23/20 12:05 DCW (Rec: 03/23/20 13:38 DCW [id number]) Ankle/Foot Strength Ankle and Foot Manual Muscle Testing Right Dorsiflexion (L4) 5 Normal Plantarflexion (S1) 4- Good- Inversion 4 Good Eversion (S1) 4+ Good+ Left Dorsiflexion (L4) 4+ Good+ Plantarflexion (S1) 3+ Fair+ Inversion 4 Good Eversion (S1) 4 Good PT-OP-Q Treatments Start: 09/05/19 13:49 Freq: Status: Active Protocol: Document 04/29/20 14:42 DCW (Rec: 04/29/20 15:13 DCW [id number]) Manual Therapy Treatment Joint Mobilizations 2 Joint B MTP joint mobs Grade III Body Position Sitting 1 Joint B Talofibular joint Direction Inferior Grade III Body Position Sitting PT-OP-R Modalities Start: 09/05/19 13:49 Freq: Status: Active Protocol: Document 04/29/20 14:42 DCW (Rec: 04/29/20 15:13 DCW [id number]) Electric Stimulation Electric Stimulation Interferential Current (IFC) Body Location R hip/low back Cycle Continuous Patient Position Sidelying Combined With Heat/Cold Hot Pack PT-OP-T Assessment and Plan Start: 09/05/19 13:49 Freq: Status: Active Protocol: Document 04/29/20 14:42 DCW (Rec: 04/29/20 15:13 DCW [id number]) Physical Therapy Assessment Impairments Impairments Functional Mobility,Pain,ROM, Soft Tissue Mobility,Strength, Tone Goals Seven Impairment Restricted left ankle ROM Alarm Installer Goal (LTG) Pt's ROM to improve from 0?->8 ? Dorsiflexion and 20?->35? Inversion LTG Duration 05/23/20 Six Impairment Pt exhibits collapsed L arch, navicular 1.4 cm closer to ground in standing Alarm Installer Goal (LTG) L navicular measured at 4 cm from ground in standing LTG Duration 05/23/20 Five Impairment LEFS score of 27/80 Half-Way Goal (LTG) LEFS score of 35/80 LTG Duration 04/12/20 Four Impairment Right hip weakness Alarm Installer Goal (LTG) Patient will exhibit 1/2 grade increase in MMT to right adductors for improvement of functional weight bearing mobility. LTG Duration 04/12/20 Three Impairment Pt unable to stand longer than 10 minutes without increased symptoms Half-Way Goal (LTG) Pt to be able to stand 25 minutes with no increase in symptoms LTG Duration 04/12/20 Two Impairment Pt has difficulty donning and doffing footwear Half-Way Goal (LTG) Pt to exhibit moderate adductor tone to allow her to don and doff footwear without assistance LTG Duration 04/12/20 One Impairment Pt does not have an appropriate home exercise program Short Term Goal (STG) Pt to be independent and compliant with an appropriate home exercise program STG Duration 03/12/20 Assessment Summary Assessment Pt requested BP reading due to her not feeling well (136/90) . Pt requested a light treatment today. Pt foot overall has been showing improvement. Physical Therapy Plan Frequency and Duration Frequency of Treatment 2x/Week Duration of Treatment 3 months Plan of Care Start Date 03/23/20 Plan of Care End Date 06/21/20 Therapeutic Interventions Therapeutic Interventions Home Exercise Program,Joint Mobilizations,Manual Therapy, Patient/Caregiver Education, Self-Care/Home Management,Soft Tissue Mobilization, Therapeutic Exercises Modalities Cold Pack/Ice Massage,Electric Stimulation,Hot Packs Next Visit Focus/Plan Next Note Type Treatment Note Next Visit Plan STM, Flexibility/soft tissue stretching, hip strengthening, ankle ROM, ankle/foot strengthening
--- NOTE | 2020-04-30 09:46 | PT.OTN ---
Current Diagnoses Pain in right hip (04/30/20) Stiffness of right hip, not elsewhere classified (04/30/20) Pain in right foot (04/30/20) Pain in left foot (04/30/20) Weakness (04/30/20) Physical Therapy Treatment Note PT-OP-A Visit Information Start: 09/05/19 13:49 Freq: Status: Active Protocol: Document 04/30/20 09:00 DCW (Rec: 04/30/20 09:45 DCW [id number]) Out-Patient Physical Therapy Visit Information Visit Information Visit Type Treatment Note Visit Start Time 09:00 Visit Stop Time 09:55 Total Visit Minutes 55 Visit Number 19 Number of FLOOR FINISHER HELPER Visits 0 Evaluation Information Evaluation Date 09/04/19 PT-OP-B Current Condition Start: 09/05/19 13:49 Freq: Status: Active Protocol: Document 03/23/20 12:05 DCW (Rec: 03/23/20 13:38 DCW [id number]) Current Condition History of Current Condition History of Current Condition Pt is a 59 year old female presenting with a one month history of pain at her proximal medial right hip/ groin. Pt reports she was having slight discomfort in the area for a few weeks, and then slept with a heating pad on the area one night, and woke up in much more pain. Pt reports sh has been diagnosed with severe arthritis and sarcoidosis, which she has recently started medication for. Pt reports she is unable to sit with her legs crossed, and needs help occasionally to don or doff her socks and shoes. Pt also notes that she is unable to stand longer than 10 minutes, but that is not a big priority for me. ADDENDUM 03/23/20: Pt has a new referral for bilateral foot pain, would like this addressed today. Pt reports she has a multi-year history of pain, feels like her left foot is twisted inside my shoe, and feels that her right ankle is constantly swollen. PT-OP-C Subjective Start: 09/05/19 13:49 Freq: Status: Active Protocol: Document 04/30/20 09:00 DCW (Rec: 04/30/20 09:45 DCW [id number]) OP-PT Subjective Patient Comments Patient Comments Pt reports she ended up in the ER last night due to her headache, she reports they offered to hospitalize her, but she did not want to go through all the tests. PT-OP-F Manual Assessment Start: 09/05/19 13:49 Freq: Status: Active Protocol: Document 03/23/20 12:05 DCW (Rec: 03/23/20 13:38 DCW [id number]) Manual Assessments Other Manual Assessments Other Manual Assessments Collapsed arch on L Ground to navicular bone; L:3. 2 cm, R:4.6 cm PT-OP-J Posture/Palpation/Skin Start: 03/23/20 13:31 Freq: Status: Active Protocol: Document 03/23/20 12:05 DCW (Rec: 03/23/20 13:38 DCW [id number]) Skin Assessment Circumference Measurement 2 Location Right Figure-8 Measurement (Centimeters) 57.6 Comments Left Figure-8: 53.2 1 Location Right transmalleolar Measurement (Centimeters) 28.9 Comments Left transmalleolar: 26.1 PT-OP-K Range of Motion Start: 09/05/19 13:49 Freq: Status: Active Protocol: Document 03/23/20 12:05 DCW (Rec: 03/23/20 13:38 DCW [id number]) Ankle and Foot Goniometric Range of Motion Ankle and Foot Right Active Testing Position Sitting Dorsiflexion with Knee Flexed 8 Plantarflexion 50 Inversion 38 Eversion 20 Left Active Ankle/Foot ROM WFL No Testing Position Sitting Dorsiflexion with Knee Flexed 0 Plantarflexion 43 Inversion 20 Eversion 18 PT-OP-L Special Tests Start: 09/05/19 13:49 Freq: Status: Active Protocol: Document 02/10/20 10:43 DCW (Rec: 02/10/20 11:09 DCW [id number]) Special Tests Lumbar Spine Special Tests Manual Traction Comments R long-axis traction provided substantial relief for pt Hip Special Tests Straight Leg Raise Test Results Negative Piriformis Test Results Negative SANDRA Test Results Ispilateral pain bilaterally Scour Test Test Results Negative PT-OP-M Strength Start: 09/05/19 13:49 Freq: Status: Active Protocol: Document 03/23/20 12:05 DCW (Rec: 03/23/20 13:38 DCW [id number]) Ankle/Foot Strength Ankle and Foot Manual Muscle Testing Right Dorsiflexion (L4) 5 Normal Plantarflexion (S1) 4- Good- Inversion 4 Good Eversion (S1) 4+ Good+ Left Dorsiflexion (L4) 4+ Good+ Plantarflexion (S1) 3+ Fair+ Inversion 4 Good Eversion (S1) 4 Good PT-OP-Q Treatments Start: 09/05/19 13:49 Freq: Status: Active Protocol: Document 04/30/20 09:00 DCW (Rec: 04/30/20 09:45 DCW [id number]) Manual Therapy Treatment Soft Tissue Mobilization 5 Body Location R T-spine Paraspinals Mobilization Type Strumming,Sustained Pressure Body Position Sidelying 4 Body Location R Piriformis Mobilization Type Strumming,Sustained Pressure, Trigger Point Release Intensity/Depth Deep Body Position Sidelying 3 Body Location B ITB Mobilization Type Strumming,Sustained Pressure, Trigger Point Release Intensity/Depth Superficial Body Position Hooklying 2 Body Location B Psoas Mobilization Type Strumming,Sustained Pressure Body Position Hooklying 1 Body Location B Adductor Mobilization Type Strumming,Sustained Pressure, Trigger Point Release Intensity/Depth Superficial Body Position Hooklying Joint Mobilizations 2 Joint B MTP joint mobs Grade III Body Position Sitting 1 Joint B Talofibular joint Direction Inferior Grade III Body Position Sitting PT-OP-R Modalities Start: 09/05/19 13:49 Freq: Status: Active Protocol: Document 04/30/20 09:00 DCW (Rec: 04/30/20 09:45 DCW [id number]) Electric Stimulation Electric Stimulation Interferential Current (IFC) Body Location R hip/low back Cycle Continuous Patient Position Sidelying Combined With Heat/Cold Hot Pack PT-OP-T Assessment and Plan Start: 09/05/19 13:49 Freq: Status: Active Protocol: Document 04/30/20 09:00 DCW (Rec: 04/30/20 09:45 DCW [id number]) Physical Therapy Assessment Impairments Impairments Functional Mobility,Pain,ROM, Soft Tissue Mobility,Strength, Tone Goals Seven Impairment Restricted left ankle ROM Mcfp Goal (LTG) Pt's ROM to improve from 0?->8 ? Dorsiflexion and 20?->35? Inversion LTG Duration 05/23/20 Six Impairment Pt exhibits collapsed L arch, navicular 1.4 cm closer to ground in standing Property Field Adjuster Goal (LTG) L navicular measured at 4 cm from ground in standing LTG Duration 05/23/20 Five Impairment LEFS score of 27/80 Property Field Adjuster Goal (LTG) LEFS score of 35/80 LTG Duration 04/12/20 Four Impairment Right hip weakness Mcfp Goal (LTG) Patient will exhibit 1/2 grade increase in MMT to right adductors for improvement of functional weight bearing mobility. LTG Duration 04/12/20 Three Impairment Pt unable to stand longer than 10 minutes without increased symptoms Property Field Adjuster Goal (LTG) Pt to be able to stand 25 minutes with no increase in symptoms LTG Duration 04/12/20 Two Impairment Pt has difficulty donning and doffing footwear Mcfp Goal (LTG) Pt to exhibit moderate adductor tone to allow her to don and doff footwear without assistance LTG Duration 04/12/20 One Impairment Pt does not have an appropriate home exercise program Short Term Goal (STG) Pt to be independent and compliant with an appropriate home exercise program STG Duration 03/12/20 Assessment Summary Assessment Despite continued complaints about her headache, pt tolerated treatment much better today than usual, noticeable decrease in tone during course of session. Physical Therapy Plan Frequency and Duration Frequency of Treatment 2x/Week Duration of Treatment 3 months Plan of Care Start Date 03/23/20 Plan of Care End Date 06/21/20 Therapeutic Interventions Therapeutic Interventions Home Exercise Program,Joint Mobilizations,Manual Therapy, Patient/Caregiver Education, Self-Care/Home Management,Soft Tissue Mobilization, Therapeutic Exercises Modalities Cold Pack/Ice Massage,Electric Stimulation,Hot Packs Next Visit Focus/Plan Next Note Type Treatment Note Next Visit Plan STM, Flexibility/soft tissue stretching, hip strengthening, ankle ROM, ankle/foot strengthening
--- NOTE | 2020-05-04 15:14 | PT.OTN ---
Current Diagnoses Pain in right hip (05/04/20) Stiffness of right hip, not elsewhere classified (05/04/20) Pain in right foot (05/04/20) Pain in left foot (05/04/20) Weakness (05/04/20) Physical Therapy Treatment Note PT-OP-A Visit Information Start: 09/05/19 13:49 Freq: Status: Active Protocol: Document 05/04/20 14:30 DCW (Rec: 05/04/20 15:13 DCW [id number]) Out-Patient Physical Therapy Visit Information Visit Information Visit Type Treatment Note Visit Start Time 14:30 Visit Stop Time 15:15 Total Visit Minutes 45 Visit Number 20 Number of HARDWARE SUPPLIES SALES REPRESENTATIVE Visits 0 Evaluation Information Evaluation Date 09/04/19 PT-OP-B Current Condition Start: 09/05/19 13:49 Freq: Status: Active Protocol: Document 03/23/20 12:05 DCW (Rec: 03/23/20 13:38 DCW [id number]) Current Condition History of Current Condition History of Current Condition Pt is a 59 year old female presenting with a one month history of pain at her proximal medial right hip/ groin. Pt reports she was having slight discomfort in the area for a few weeks, and then slept with a heating pad on the area one night, and woke up in much more pain. Pt reports sh has been diagnosed with severe arthritis and sarcoidosis, which she has recently started medication for. Pt reports she is unable to sit with her legs crossed, and needs help occasionally to don or doff her socks and shoes. Pt also notes that she is unable to stand longer than 10 minutes, but that is not a big priority for me. ADDENDUM 03/23/20: Pt has a new referral for bilateral foot pain, would like this addressed today. Pt reports she has a multi-year history of pain, feels like her left foot is twisted inside my shoe, and feels that her right ankle is constantly swollen. PT-OP-C Subjective Start: 09/05/19 13:49 Freq: Status: Active Protocol: Document 05/04/20 14:30 DCW (Rec: 05/04/20 15:13 DCW [id number]) OP-PT Subjective Patient Comments Patient Comments Pt reports her side is inflamed. I didn't sleep well last night because it is so sore. PT-OP-F Manual Assessment Start: 09/05/19 13:49 Freq: Status: Active Protocol: Document 03/23/20 12:05 DCW (Rec: 03/23/20 13:38 DCW [id number]) Manual Assessments Other Manual Assessments Other Manual Assessments Collapsed arch on L Ground to navicular bone; L:3. 2 cm, R:4.6 cm PT-OP-J Posture/Palpation/Skin Start: 03/23/20 13:31 Freq: Status: Active Protocol: Document 03/23/20 12:05 DCW (Rec: 03/23/20 13:38 DCW [id number]) Skin Assessment Circumference Measurement 2 Location Right Figure-8 Measurement (Centimeters) 57.6 Comments Left Figure-8: 53.2 1 Location Right transmalleolar Measurement (Centimeters) 28.9 Comments Left transmalleolar: 26.1 PT-OP-K Range of Motion Start: 09/05/19 13:49 Freq: Status: Active Protocol: Document 03/23/20 12:05 DCW (Rec: 03/23/20 13:38 DCW [id number]) Ankle and Foot Goniometric Range of Motion Ankle and Foot Right Active Testing Position Sitting Dorsiflexion with Knee Flexed 8 Plantarflexion 50 Inversion 38 Eversion 20 Left Active Ankle/Foot ROM WFL No Testing Position Sitting Dorsiflexion with Knee Flexed 0 Plantarflexion 43 Inversion 20 Eversion 18 PT-OP-L Special Tests Start: 09/05/19 13:49 Freq: Status: Active Protocol: Document 02/10/20 10:43 DCW (Rec: 02/10/20 11:09 DCW [id number]) Special Tests Lumbar Spine Special Tests Manual Traction Comments R long-axis traction provided substantial relief for pt Hip Special Tests Straight Leg Raise Test Results Negative Piriformis Test Results Negative SANDRA Test Results Ispilateral pain bilaterally Scour Test Test Results Negative PT-OP-M Strength Start: 09/05/19 13:49 Freq: Status: Active Protocol: Document 03/23/20 12:05 DCW (Rec: 03/23/20 13:38 DCW [id number]) Ankle/Foot Strength Ankle and Foot Manual Muscle Testing Right Dorsiflexion (L4) 5 Normal Plantarflexion (S1) 4- Good- Inversion 4 Good Eversion (S1) 4+ Good+ Left Dorsiflexion (L4) 4+ Good+ Plantarflexion (S1) 3+ Fair+ Inversion 4 Good Eversion (S1) 4 Good PT-OP-Q Treatments Start: 09/05/19 13:49 Freq: Status: Active Protocol: Document 05/04/20 14:30 DCW (Rec: 05/04/20 15:13 DCW [id number]) Manual Therapy Treatment Soft Tissue Mobilization 3 Body Location B ITB Mobilization Type Strumming,Sustained Pressure, Trigger Point Release Intensity/Depth Superficial Body Position Hooklying 2 Body Location B Psoas Mobilization Type Strumming,Sustained Pressure Body Position Hooklying Joint Mobilizations 2 Joint B MTP joint mobs Grade III Body Position Sitting 1 Joint B Talofibular joint Direction Inferior Grade III Body Position Sitting PT-OP-R Modalities Start: 09/05/19 13:49 Freq: Status: Active Protocol: Document 05/04/20 14:30 DCW (Rec: 05/04/20 15:14 DCW [id number]) Electric Stimulation Electric Stimulation Interferential Current (IFC) Body Location R hip/low back Cycle Continuous Patient Position Sidelying Combined With Heat/Cold Hot Pack PT-OP-T Assessment and Plan Start: 09/05/19 13:49 Freq: Status: Active Protocol: Document 05/04/20 14:30 DCW (Rec: 05/04/20 15:13 DCW [id number]) Physical Therapy Assessment Impairments Impairments Functional Mobility,Pain,ROM, Soft Tissue Mobility,Strength, Tone Goals Seven Impairment Restricted left ankle ROM Retirement Goal (LTG) Pt's ROM to improve from 0?->8 ? Dorsiflexion and 20?->35? Inversion LTG Duration 05/23/20 Six Impairment Pt exhibits collapsed L arch, navicular 1.4 cm closer to ground in standing Retirement Goal (LTG) L navicular measured at 4 cm from ground in standing LTG Duration 05/23/20 Five Impairment LEFS score of 27/80 Retirement Goal (LTG) LEFS score of 35/80 LTG Duration 04/12/20 Four Impairment Right hip weakness Retirement Goal (LTG) Patient will exhibit 1/2 grade increase in MMT to right adductors for improvement of functional weight bearing mobility. LTG Duration 04/12/20 Three Impairment Pt unable to stand longer than 10 minutes without increased symptoms Supervisor Cigar Making Hand Goal (LTG) Pt to be able to stand 25 minutes with no increase in symptoms LTG Duration 04/12/20 Two Impairment Pt has difficulty donning and doffing footwear Supervisor Cigar Making Hand Goal (LTG) Pt to exhibit moderate adductor tone to allow her to don and doff footwear without assistance LTG Duration 04/12/20 One Impairment Pt does not have an appropriate home exercise program Short Term Goal (STG) Pt to be independent and compliant with an appropriate home exercise program STG Duration 03/12/20 Assessment Summary Assessment Pt inflamed/sore today, she was not thrilled with idea of deeper STM, took it easy today , finished with E-stim and MHP . Physical Therapy Plan Frequency and Duration Frequency of Treatment 2x/Week Duration of Treatment 3 months Plan of Care Start Date 03/23/20 Plan of Care End Date 06/21/20 Therapeutic Interventions Therapeutic Interventions Home Exercise Program,Joint Mobilizations,Manual Therapy, Patient/Caregiver Education, Self-Care/Home Management,Soft Tissue Mobilization, Therapeutic Exercises Modalities Cold Pack/Ice Massage,Electric Stimulation,Hot Packs Next Visit Focus/Plan Next Note Type Treatment Note Next Visit Plan STM, Flexibility/soft tissue stretching, hip strengthening, ankle ROM, ankle/foot strengthening
--- NOTE | 2020-05-11 15:13 | PT.OTN ---
Current Diagnoses Pain in right hip (05/11/20) Stiffness of right hip, not elsewhere classified (05/11/20) Pain in right foot (05/11/20) Pain in left foot (05/11/20) Weakness (05/11/20) Physical Therapy Treatment Note PT-OP-A Visit Information Start: 09/05/19 13:49 Freq: Status: Active Protocol: Document 05/11/20 14:32 DCW (Rec: 05/11/20 15:13 DCW [id number]) Out-Patient Physical Therapy Visit Information Visit Information Visit Type Treatment Note Visit Start Time 14:32 Visit Stop Time 15:22 Total Visit Minutes 50 Visit Number 21 Number of DATA MANAGEMENT ASSOCIATE Visits 0 Evaluation Information Evaluation Date 09/04/19 PT-OP-B Current Condition Start: 09/05/19 13:49 Freq: Status: Active Protocol: Document 03/23/20 12:05 DCW (Rec: 03/23/20 13:38 DCW [id number]) Current Condition History of Current Condition History of Current Condition Pt is a 59 year old female presenting with a one month history of pain at her proximal medial right hip/ groin. Pt reports she was having slight discomfort in the area for a few weeks, and then slept with a heating pad on the area one night, and woke up in much more pain. Pt reports sh has been diagnosed with severe arthritis and sarcoidosis, which she has recently started medication for. Pt reports she is unable to sit with her legs crossed, and needs help occasionally to don or doff her socks and shoes. Pt also notes that she is unable to stand longer than 10 minutes, but that is not a big priority for me. ADDENDUM 03/23/20: Pt has a new referral for bilateral foot pain, would like this addressed today. Pt reports she has a multi-year history of pain, feels like her left foot is twisted inside my shoe, and feels that her right ankle is constantly swollen. PT-OP-C Subjective Start: 09/05/19 13:49 Freq: Status: Active Protocol: Document 05/11/20 14:32 DCW (Rec: 05/11/20 15:13 DCW [id number]) OP-PT Subjective Patient Comments Patient Comments Pt reports she got a referral to see a program rep at [facility], because her right side is still bothering her a lot. PT-OP-F Manual Assessment Start: 09/05/19 13:49 Freq: Status: Active Protocol: Document 03/23/20 12:05 DCW (Rec: 03/23/20 13:38 DCW [id number]) Manual Assessments Other Manual Assessments Other Manual Assessments Collapsed arch on L Ground to navicular bone; L:3. 2 cm, R:4.6 cm PT-OP-J Posture/Palpation/Skin Start: 03/23/20 13:31 Freq: Status: Active Protocol: Document 03/23/20 12:05 DCW (Rec: 03/23/20 13:38 DCW [id number]) Skin Assessment Circumference Measurement 2 Location Right Figure-8 Measurement (Centimeters) 57.6 Comments Left Figure-8: 53.2 1 Location Right transmalleolar Measurement (Centimeters) 28.9 Comments Left transmalleolar: 26.1 PT-OP-K Range of Motion Start: 09/05/19 13:49 Freq: Status: Active Protocol: Document 03/23/20 12:05 DCW (Rec: 03/23/20 13:38 DCW [id number]) Ankle and Foot Goniometric Range of Motion Ankle and Foot Right Active Testing Position Sitting Dorsiflexion with Knee Flexed 8 Plantarflexion 50 Inversion 38 Eversion 20 Left Active Ankle/Foot ROM WFL No Testing Position Sitting Dorsiflexion with Knee Flexed 0 Plantarflexion 43 Inversion 20 Eversion 18 PT-OP-L Special Tests Start: 09/05/19 13:49 Freq: Status: Active Protocol: Document 02/10/20 10:43 DCW (Rec: 02/10/20 11:09 DCW [id number]) Special Tests Lumbar Spine Special Tests Manual Traction Comments R long-axis traction provided substantial relief for pt Hip Special Tests Straight Leg Raise Test Results Negative Piriformis Test Results Negative SANDRA Test Results Ispilateral pain bilaterally Scour Test Test Results Negative PT-OP-M Strength Start: 09/05/19 13:49 Freq: Status: Active Protocol: Document 03/23/20 12:05 DCW (Rec: 03/23/20 13:38 DCW [id number]) Ankle/Foot Strength Ankle and Foot Manual Muscle Testing Right Dorsiflexion (L4) 5 Normal Plantarflexion (S1) 4- Good- Inversion 4 Good Eversion (S1) 4+ Good+ Left Dorsiflexion (L4) 4+ Good+ Plantarflexion (S1) 3+ Fair+ Inversion 4 Good Eversion (S1) 4 Good PT-OP-Q Treatments Start: 09/05/19 13:49 Freq: Status: Active Protocol: Document 05/11/20 14:32 DCW (Rec: 05/11/20 15:13 DCW [id number]) Manual Therapy Treatment Soft Tissue Mobilization 5 Body Location R T-spine Paraspinals Mobilization Type Strumming,Sustained Pressure Body Position Sidelying 4 Body Location R Piriformis Mobilization Type Strumming,Sustained Pressure, Trigger Point Release Intensity/Depth Deep Body Position Sidelying 3 Body Location B ITB Mobilization Type Strumming,Sustained Pressure, Trigger Point Release Intensity/Depth Superficial Body Position Hooklying 2 Body Location B Psoas Mobilization Type Strumming,Sustained Pressure Body Position Hooklying 1 Body Location B Adductor Mobilization Type Strumming,Sustained Pressure, Trigger Point Release Intensity/Depth Superficial Body Position Hooklying Joint Mobilizations 2 Joint B MTP joint mobs Grade III Body Position Sitting 1 Joint B Talofibular joint Direction Inferior Grade III Body Position Sitting PT-OP-R Modalities Start: 09/05/19 13:49 Freq: Status: Active Protocol: Document 05/11/20 14:32 DCW (Rec: 05/11/20 15:13 DCW [id number]) Electric Stimulation Electric Stimulation Interferential Current (IFC) Body Location R hip/low back Cycle Continuous Patient Position Sidelying Combined With Heat/Cold Hot Pack PT-OP-T Assessment and Plan Start: 09/05/19 13:49 Freq: Status: Active Protocol: Document 05/11/20 14:32 DCW (Rec: 05/11/20 15:13 DCW [id number]) Physical Therapy Assessment Impairments Impairments Functional Mobility,Pain,ROM, Soft Tissue Mobility,Strength, Tone Goals Seven Impairment Restricted left ankle ROM Clinical Nursing Assistant Goal (LTG) Pt's ROM to improve from 0?->8 ? Dorsiflexion and 20?->35? Inversion LTG Duration 05/23/20 Six Impairment Pt exhibits collapsed L arch, navicular 1.4 cm closer to ground in standing Usp Goal (LTG) L navicular measured at 4 cm from ground in standing LTG Duration 05/23/20 Five Impairment LEFS score of 27/80 Clinical Nursing Assistant Goal (LTG) LEFS score of 35/80 LTG Duration 04/12/20 Four Impairment Right hip weakness Clinical Nursing Assistant Goal (LTG) Patient will exhibit 1/2 grade increase in MMT to right adductors for improvement of functional weight bearing mobility. LTG Duration 04/12/20 Three Impairment Pt unable to stand longer than 10 minutes without increased symptoms Usp Goal (LTG) Pt to be able to stand 25 minutes with no increase in symptoms LTG Duration 04/12/20 Two Impairment Pt has difficulty donning and doffing footwear Clinical Nursing Assistant Goal (LTG) Pt to exhibit moderate adductor tone to allow her to don and doff footwear without assistance LTG Duration 04/12/20 One Impairment Pt does not have an appropriate home exercise program Short Term Goal (STG) Pt to be independent and compliant with an appropriate home exercise program STG Duration 03/12/20 Assessment Summary Assessment Pt feeling much better today, less tenderness, no complaints of headache, able to tolerate full STM session. Physical Therapy Plan Frequency and Duration Frequency of Treatment 2x/Week Duration of Treatment 3 months Plan of Care Start Date 03/23/20 Plan of Care End Date 06/21/20 Therapeutic Interventions Therapeutic Interventions Home Exercise Program,Joint Mobilizations,Manual Therapy, Patient/Caregiver Education, Self-Care/Home Management,Soft Tissue Mobilization, Therapeutic Exercises Modalities Cold Pack/Ice Massage,Electric Stimulation,Hot Packs Next Visit Focus/Plan Next Note Type Treatment Note Next Visit Plan STM, Flexibility/soft tissue stretching, hip strengthening, ankle ROM, ankle/foot strengthening
--- NOTE | 2020-05-13 15:19 | PT.OTN ---
Current Diagnoses Pain in right hip (05/13/20) Stiffness of right hip, not elsewhere classified (05/13/20) Pain in right foot (05/13/20) Pain in left foot (05/13/20) Weakness (05/13/20) Physical Therapy Treatment Note PT-OP-A Visit Information Start: 09/05/19 13:49 Freq: Status: Active Protocol: Document 05/13/20 14:40 DCW (Rec: 05/13/20 15:19 DCW [id number]) Out-Patient Physical Therapy Visit Information Visit Information Visit Type Treatment Note Visit Note 10 min late Visit Start Time 14:40 Visit Stop Time 15:20 Total Visit Minutes 40 Visit Number 22 Number of CLIENT REPRESENTATIVE Visits 0 Evaluation Information Evaluation Date 09/04/19 PT-OP-B Current Condition Start: 09/05/19 13:49 Freq: Status: Active Protocol: Document 03/23/20 12:05 DCW (Rec: 03/23/20 13:38 DCW [id number]) Current Condition History of Current Condition History of Current Condition Pt is a 59 year old female presenting with a one month history of pain at her proximal medial right hip/ groin. Pt reports she was having slight discomfort in the area for a few weeks, and then slept with a heating pad on the area one night, and woke up in much more pain. Pt reports sh has been diagnosed with severe arthritis and sarcoidosis, which she has recently started medication for. Pt reports she is unable to sit with her legs crossed, and needs help occasionally to don or doff her socks and shoes. Pt also notes that she is unable to stand longer than 10 minutes, but that is not a big priority for me. ADDENDUM 03/23/20: Pt has a new referral for bilateral foot pain, would like this addressed today. Pt reports she has a multi-year history of pain, feels like her left foot is twisted inside my shoe, and feels that her right ankle is constantly swollen. PT-OP-C Subjective Start: 09/05/19 13:49 Freq: Status: Active Protocol: Document 05/13/20 14:40 DCW (Rec: 05/13/20 15:19 DCW [id number]) OP-PT Subjective Patient Comments Patient Comments Pt reports she is feeling alright today. PT-OP-F Manual Assessment Start: 09/05/19 13:49 Freq: Status: Active Protocol: Document 03/23/20 12:05 DCW (Rec: 03/23/20 13:38 DCW [id number]) Manual Assessments Other Manual Assessments Other Manual Assessments Collapsed arch on L Ground to navicular bone; L:3. 2 cm, R:4.6 cm PT-OP-J Posture/Palpation/Skin Start: 03/23/20 13:31 Freq: Status: Active Protocol: Document 03/23/20 12:05 DCW (Rec: 03/23/20 13:38 DCW [id number]) Skin Assessment Circumference Measurement 2 Location Right Figure-8 Measurement (Centimeters) 57.6 Comments Left Figure-8: 53.2 1 Location Right transmalleolar Measurement (Centimeters) 28.9 Comments Left transmalleolar: 26.1 PT-OP-K Range of Motion Start: 09/05/19 13:49 Freq: Status: Active Protocol: Document 03/23/20 12:05 DCW (Rec: 03/23/20 13:38 DCW [id number]) Ankle and Foot Goniometric Range of Motion Ankle and Foot Right Active Testing Position Sitting Dorsiflexion with Knee Flexed 8 Plantarflexion 50 Inversion 38 Eversion 20 Left Active Ankle/Foot ROM WFL No Testing Position Sitting Dorsiflexion with Knee Flexed 0 Plantarflexion 43 Inversion 20 Eversion 18 PT-OP-L Special Tests Start: 09/05/19 13:49 Freq: Status: Active Protocol: Document 02/10/20 10:43 DCW (Rec: 02/10/20 11:09 DCW [id number]) Special Tests Lumbar Spine Special Tests Manual Traction Comments R long-axis traction provided substantial relief for pt Hip Special Tests Straight Leg Raise Test Results Negative Piriformis Test Results Negative SANDRA Test Results Ispilateral pain bilaterally Scour Test Test Results Negative PT-OP-M Strength Start: 09/05/19 13:49 Freq: Status: Active Protocol: Document 03/23/20 12:05 DCW (Rec: 03/23/20 13:38 DCW [id number]) Ankle/Foot Strength Ankle and Foot Manual Muscle Testing Right Dorsiflexion (L4) 5 Normal Plantarflexion (S1) 4- Good- Inversion 4 Good Eversion (S1) 4+ Good+ Left Dorsiflexion (L4) 4+ Good+ Plantarflexion (S1) 3+ Fair+ Inversion 4 Good Eversion (S1) 4 Good PT-OP-Q Treatments Start: 09/05/19 13:49 Freq: Status: Active Protocol: Document 05/13/20 14:40 DCW (Rec: 05/13/20 15:19 DCW [id number]) Manual Therapy Treatment Soft Tissue Mobilization 5 Body Location R T-spine Paraspinals Mobilization Type Strumming,Sustained Pressure Body Position Sidelying 4 Body Location R Piriformis Mobilization Type Strumming,Sustained Pressure, Trigger Point Release Intensity/Depth Deep Body Position Sidelying 3 Body Location B ITB Mobilization Type Strumming,Sustained Pressure, Trigger Point Release Intensity/Depth Superficial Body Position Hooklying 2 Body Location B Psoas Mobilization Type Strumming,Sustained Pressure Body Position Hooklying 1 Body Location B Adductor Mobilization Type Strumming,Sustained Pressure, Trigger Point Release Intensity/Depth Superficial Body Position Hooklying Joint Mobilizations 2 Joint B MTP joint mobs Grade III Body Position Sitting 1 Joint B Talofibular joint Direction Inferior Grade III Body Position Sitting PT-OP-R Modalities Start: 09/05/19 13:49 Freq: Status: Active Protocol: Document 05/13/20 14:40 DCW (Rec: 05/13/20 15:19 DCW [id number]) Electric Stimulation Electric Stimulation Interferential Current (IFC) Body Location R hip/low back Cycle Continuous Patient Position Sidelying Combined With Heat/Cold Hot Pack PT-OP-T Assessment and Plan Start: 09/05/19 13:49 Freq: Status: Active Protocol: Document 05/13/20 14:40 DCW (Rec: 05/13/20 15:19 DCW [id number]) Physical Therapy Assessment Impairments Impairments Functional Mobility,Pain,ROM, Soft Tissue Mobility,Strength, Tone Goals Seven Impairment Restricted left ankle ROM Brickmason Contractor Goal (LTG) Pt's ROM to improve from 0?->8 ? Dorsiflexion and 20?->35? Inversion LTG Duration 05/23/20 Six Impairment Pt exhibits collapsed L arch, navicular 1.4 cm closer to ground in standing Custodial Goal (LTG) L navicular measured at 4 cm from ground in standing LTG Duration 05/23/20 Five Impairment LEFS score of 27/80 Brickmason Contractor Goal (LTG) LEFS score of 35/80 LTG Duration 04/12/20 Four Impairment Right hip weakness Brickmason Contractor Goal (LTG) Patient will exhibit 1/2 grade increase in MMT to right adductors for improvement of functional weight bearing mobility. LTG Duration 04/12/20 Three Impairment Pt unable to stand longer than 10 minutes without increased symptoms Custodial Goal (LTG) Pt to be able to stand 25 minutes with no increase in symptoms LTG Duration 04/12/20 Two Impairment Pt has difficulty donning and doffing footwear Custodial Goal (LTG) Pt to exhibit moderate adductor tone to allow her to don and doff footwear without assistance LTG Duration 04/12/20 One Impairment Pt does not have an appropriate home exercise program Short Term Goal (STG) Pt to be independent and compliant with an appropriate home exercise program STG Duration 03/12/20 Assessment Summary Assessment Pt doing fairly well today, less tenderness to palpation that usual. Should look to add strengthening exercises soon. Physical Therapy Plan Frequency and Duration Frequency of Treatment 2x/Week Duration of Treatment 3 months Plan of Care Start Date 03/23/20 Plan of Care End Date 06/21/20 Therapeutic Interventions Therapeutic Interventions Home Exercise Program,Joint Mobilizations,Manual Therapy, Patient/Caregiver Education, Self-Care/Home Management,Soft Tissue Mobilization, Therapeutic Exercises Modalities Cold Pack/Ice Massage,Electric Stimulation,Hot Packs Next Visit Focus/Plan Next Note Type Treatment Note Next Visit Plan STM, Flexibility/soft tissue stretching, hip strengthening, ankle ROM, ankle/foot strengthening
--- NOTE | 2020-05-18 15:13 | PT.OTN ---
Current Diagnoses Pain in right hip (05/18/20) Stiffness of right hip, not elsewhere classified (05/18/20) Pain in right foot (05/18/20) Pain in left foot (05/18/20) Weakness (05/18/20) Physical Therapy Treatment Note PT-OP-A Visit Information Start: 09/05/19 13:49 Freq: Status: Active Protocol: Document 05/18/20 14:30 DCW (Rec: 05/18/20 15:13 DCW [id number]) Out-Patient Physical Therapy Visit Information Visit Information Visit Type Treatment Note Visit Start Time 14:30 Visit Stop Time 15:20 Total Visit Minutes 50 Visit Number 23 Number of FISH NET STRINGER Visits 0 Evaluation Information Evaluation Date 09/04/19 PT-OP-B Current Condition Start: 09/05/19 13:49 Freq: Status: Active Protocol: Document 03/23/20 12:05 DCW (Rec: 03/23/20 13:38 DCW [id number]) Current Condition History of Current Condition History of Current Condition Pt is a 59 year old female presenting with a one month history of pain at her proximal medial right hip/ groin. Pt reports she was having slight discomfort in the area for a few weeks, and then slept with a heating pad on the area one night, and woke up in much more pain. Pt reports sh has been diagnosed with severe arthritis and sarcoidosis, which she has recently started medication for. Pt reports she is unable to sit with her legs crossed, and needs help occasionally to don or doff her socks and shoes. Pt also notes that she is unable to stand longer than 10 minutes, but that is not a big priority for me. ADDENDUM 03/23/20: Pt has a new referral for bilateral foot pain, would like this addressed today. Pt reports she has a multi-year history of pain, feels like her left foot is twisted inside my shoe, and feels that her right ankle is constantly swollen. PT-OP-C Subjective Start: 09/05/19 13:49 Freq: Status: Active Protocol: Document 05/18/20 14:30 DCW (Rec: 05/18/20 15:13 DCW [id number]) OP-PT Subjective Patient Comments Patient Comments Pt reports she is pretty tender today. PT-OP-F Manual Assessment Start: 09/05/19 13:49 Freq: Status: Active Protocol: Document 03/23/20 12:05 DCW (Rec: 03/23/20 13:38 DCW [id number]) Manual Assessments Other Manual Assessments Other Manual Assessments Collapsed arch on L Ground to navicular bone; L:3. 2 cm, R:4.6 cm PT-OP-J Posture/Palpation/Skin Start: 03/23/20 13:31 Freq: Status: Active Protocol: Document 03/23/20 12:05 DCW (Rec: 03/23/20 13:38 DCW [id number]) Skin Assessment Circumference Measurement 2 Location Right Figure-8 Measurement (Centimeters) 57.6 Comments Left Figure-8: 53.2 1 Location Right transmalleolar Measurement (Centimeters) 28.9 Comments Left transmalleolar: 26.1 PT-OP-K Range of Motion Start: 09/05/19 13:49 Freq: Status: Active Protocol: Document 03/23/20 12:05 DCW (Rec: 03/23/20 13:38 DCW [id number]) Ankle and Foot Goniometric Range of Motion Ankle and Foot Right Active Testing Position Sitting Dorsiflexion with Knee Flexed 8 Plantarflexion 50 Inversion 38 Eversion 20 Left Active Ankle/Foot ROM WFL No Testing Position Sitting Dorsiflexion with Knee Flexed 0 Plantarflexion 43 Inversion 20 Eversion 18 PT-OP-L Special Tests Start: 09/05/19 13:49 Freq: Status: Active Protocol: Document 02/10/20 10:43 DCW (Rec: 02/10/20 11:09 DCW [id number]) Special Tests Lumbar Spine Special Tests Manual Traction Comments R long-axis traction provided substantial relief for pt Hip Special Tests Straight Leg Raise Test Results Negative Piriformis Test Results Negative SANDRA Test Results Ispilateral pain bilaterally Scour Test Test Results Negative PT-OP-M Strength Start: 09/05/19 13:49 Freq: Status: Active Protocol: Document 03/23/20 12:05 DCW (Rec: 03/23/20 13:38 DCW [id number]) Ankle/Foot Strength Ankle and Foot Manual Muscle Testing Right Dorsiflexion (L4) 5 Normal Plantarflexion (S1) 4- Good- Inversion 4 Good Eversion (S1) 4+ Good+ Left Dorsiflexion (L4) 4+ Good+ Plantarflexion (S1) 3+ Fair+ Inversion 4 Good Eversion (S1) 4 Good PT-OP-Q Treatments Start: 09/05/19 13:49 Freq: Status: Active Protocol: Document 05/18/20 14:30 DCW (Rec: 05/18/20 15:13 DCW [id number]) Manual Therapy Treatment Soft Tissue Mobilization 5 Body Location R T-spine Paraspinals Mobilization Type Strumming,Sustained Pressure Body Position Sidelying 4 Body Location R Piriformis Mobilization Type Strumming,Sustained Pressure, Trigger Point Release Intensity/Depth Deep Body Position Sidelying 3 Body Location B ITB Mobilization Type Strumming,Sustained Pressure, Trigger Point Release Intensity/Depth Superficial Body Position Hooklying 2 Body Location B Psoas Mobilization Type Strumming,Sustained Pressure Body Position Hooklying 1 Body Location B Adductor Mobilization Type Strumming,Sustained Pressure, Trigger Point Release Intensity/Depth Superficial Body Position Hooklying Joint Mobilizations 2 Joint B MTP joint mobs Grade III Body Position Sitting 1 Joint B Talofibular joint Direction Inferior Grade III Body Position Sitting PT-OP-R Modalities Start: 09/05/19 13:49 Freq: Status: Active Protocol: Document 05/18/20 14:30 DCW (Rec: 05/18/20 15:13 DCW [id number]) Electric Stimulation Electric Stimulation Interferential Current (IFC) Body Location R hip/low back Cycle Continuous Patient Position Sidelying Combined With Heat/Cold Hot Pack PT-OP-T Assessment and Plan Start: 09/05/19 13:49 Freq: Status: Active Protocol: Document 05/18/20 14:30 DCW (Rec: 05/18/20 15:13 DCW [id number]) Physical Therapy Assessment Impairments Impairments Functional Mobility,Pain,ROM, Soft Tissue Mobility,Strength, Tone Goals Seven Impairment Restricted left ankle ROM Residential Goal (LTG) Pt's ROM to improve from 0?->8 ? Dorsiflexion and 20?->35? Inversion LTG Duration 05/23/20 Six Impairment Pt exhibits collapsed L arch, navicular 1.4 cm closer to ground in standing Residential Goal (LTG) L navicular measured at 4 cm from ground in standing LTG Duration 05/23/20 Five Impairment LEFS score of 27/80 Didactic Instructor Goal (LTG) LEFS score of 35/80 LTG Duration 04/12/20 Four Impairment Right hip weakness Residential Goal (LTG) Patient will exhibit 1/2 grade increase in MMT to right adductors for improvement of functional weight bearing mobility. LTG Duration 04/12/20 Three Impairment Pt unable to stand longer than 10 minutes without increased symptoms Residential Goal (LTG) Pt to be able to stand 25 minutes with no increase in symptoms LTG Duration 04/12/20 Two Impairment Pt has difficulty donning and doffing footwear Residential Goal (LTG) Pt to exhibit moderate adductor tone to allow her to don and doff footwear without assistance LTG Duration 04/12/20 One Impairment Pt does not have an appropriate home exercise program Short Term Goal (STG) Pt to be independent and compliant with an appropriate home exercise program STG Duration 03/12/20 Assessment Summary Assessment Pt very tender today, therapist wanted to attempt gym machines today, however pt too sore. Physical Therapy Plan Frequency and Duration Frequency of Treatment 2x/Week Duration of Treatment 3 months Plan of Care Start Date 03/23/20 Plan of Care End Date 06/21/20 Therapeutic Interventions Therapeutic Interventions Home Exercise Program,Joint Mobilizations,Manual Therapy, Patient/Caregiver Education, Self-Care/Home Management,Soft Tissue Mobilization, Therapeutic Exercises Modalities Cold Pack/Ice Massage,Electric Stimulation,Hot Packs Next Visit Focus/Plan Next Note Type Treatment Note Next Visit Plan STM, Flexibility/soft tissue stretching, hip strengthening, ankle ROM, ankle/foot strengthening
--- NOTE | 2020-05-20 15:17 | PT.OTN ---
Current Diagnoses Pain in right hip (05/20/20) Stiffness of right hip, not elsewhere classified (05/20/20) Pain in right foot (05/20/20) Pain in left foot (05/20/20) Weakness (05/20/20) Physical Therapy Treatment Note PT-OP-A Visit Information Start: 09/05/19 13:49 Freq: Status: Active Protocol: Document 05/20/20 14:30 DCW (Rec: 05/20/20 15:15 DCW [id number]) Out-Patient Physical Therapy Visit Information Visit Information Visit Type Treatment Note Visit Start Time 14:30 Visit Stop Time 15:20 Total Visit Minutes 50 Visit Number 24 Number of BUILDING CONSULTANT Visits 0 Evaluation Information Evaluation Date 09/04/19 PT-OP-B Current Condition Start: 09/05/19 13:49 Freq: Status: Active Protocol: Document 03/23/20 12:05 DCW (Rec: 03/23/20 13:38 DCW [id number]) Current Condition History of Current Condition History of Current Condition Pt is a 59 year old female presenting with a one month history of pain at her proximal medial right hip/ groin. Pt reports she was having slight discomfort in the area for a few weeks, and then slept with a heating pad on the area one night, and woke up in much more pain. Pt reports sh has been diagnosed with severe arthritis and sarcoidosis, which she has recently started medication for. Pt reports she is unable to sit with her legs crossed, and needs help occasionally to don or doff her socks and shoes. Pt also notes that she is unable to stand longer than 10 minutes, but that is not a big priority for me. ADDENDUM 03/23/20: Pt has a new referral for bilateral foot pain, would like this addressed today. Pt reports she has a multi-year history of pain, feels like her left foot is twisted inside my shoe, and feels that her right ankle is constantly swollen. PT-OP-C Subjective Start: 09/05/19 13:49 Freq: Status: Active Protocol: Document 05/20/20 14:30 DCW (Rec: 05/20/20 15:15 DCW [id number]) OP-PT Subjective Patient Comments Patient Comments I'm feeling very good today. I had a two mile walk yesterday, and I got up today and did my stretching and am moving pretty good today. PT-OP-F Manual Assessment Start: 09/05/19 13:49 Freq: Status: Active Protocol: Document 03/23/20 12:05 DCW (Rec: 03/23/20 13:38 DCW [id number]) Manual Assessments Other Manual Assessments Other Manual Assessments Collapsed arch on L Ground to navicular bone; L:3. 2 cm, R:4.6 cm PT-OP-J Posture/Palpation/Skin Start: 03/23/20 13:31 Freq: Status: Active Protocol: Document 03/23/20 12:05 DCW (Rec: 03/23/20 13:38 DCW [id number]) Skin Assessment Circumference Measurement 2 Location Right Figure-8 Measurement (Centimeters) 57.6 Comments Left Figure-8: 53.2 1 Location Right transmalleolar Measurement (Centimeters) 28.9 Comments Left transmalleolar: 26.1 PT-OP-K Range of Motion Start: 09/05/19 13:49 Freq: Status: Active Protocol: Document 03/23/20 12:05 DCW (Rec: 03/23/20 13:38 DCW [id number]) Ankle and Foot Goniometric Range of Motion Ankle and Foot Right Active Testing Position Sitting Dorsiflexion with Knee Flexed 8 Plantarflexion 50 Inversion 38 Eversion 20 Left Active Ankle/Foot ROM WFL No Testing Position Sitting Dorsiflexion with Knee Flexed 0 Plantarflexion 43 Inversion 20 Eversion 18 PT-OP-L Special Tests Start: 09/05/19 13:49 Freq: Status: Active Protocol: Document 02/10/20 10:43 DCW (Rec: 02/10/20 11:09 DCW [id number]) Special Tests Lumbar Spine Special Tests Manual Traction Comments R long-axis traction provided substantial relief for pt Hip Special Tests Straight Leg Raise Test Results Negative Piriformis Test Results Negative SANDRA Test Results Ispilateral pain bilaterally Scour Test Test Results Negative PT-OP-M Strength Start: 09/05/19 13:49 Freq: Status: Active Protocol: Document 03/23/20 12:05 DCW (Rec: 03/23/20 13:38 DCW [id number]) Ankle/Foot Strength Ankle and Foot Manual Muscle Testing Right Dorsiflexion (L4) 5 Normal Plantarflexion (S1) 4- Good- Inversion 4 Good Eversion (S1) 4+ Good+ Left Dorsiflexion (L4) 4+ Good+ Plantarflexion (S1) 3+ Fair+ Inversion 4 Good Eversion (S1) 4 Good PT-OP-Q Treatments Start: 09/05/19 13:49 Freq: Status: Active Protocol: Document 05/20/20 14:30 DCW (Rec: 05/20/20 15:15 DCW [id number]) Manual Therapy Treatment Soft Tissue Mobilization 4 Body Location R Piriformis Mobilization Type Strumming,Sustained Pressure, Trigger Point Release Intensity/Depth Deep Body Position Sidelying 3 Body Location B ITB Mobilization Type Strumming,Sustained Pressure, Trigger Point Release Intensity/Depth Superficial Body Position Hooklying 2 Body Location B Psoas Mobilization Type Strumming,Sustained Pressure Body Position Hooklying 1 Body Location B Adductor Mobilization Type Strumming,Sustained Pressure, Trigger Point Release Intensity/Depth Superficial Body Position Hooklying Joint Mobilizations 2 Joint B MTP joint mobs Grade III Body Position Sitting 1 Joint B Talofibular joint Direction Inferior Grade III Body Position Sitting PT-OP-R Modalities Start: 09/05/19 13:49 Freq: Status: Active Protocol: Document 05/20/20 14:30 DCW (Rec: 05/20/20 15:15 DCW [id number]) Electric Stimulation Electric Stimulation Interferential Current (IFC) Body Location R hip/low back Cycle Continuous Patient Position Sidelying Combined With Heat/Cold Hot Pack PT-OP-T Assessment and Plan Start: 09/05/19 13:49 Freq: Status: Active Protocol: Document 05/20/20 14:30 DCW (Rec: 05/20/20 15:15 DCW [id number]) Physical Therapy Assessment Impairments Impairments Functional Mobility,Pain,ROM, Soft Tissue Mobility,Strength, Tone Goals Seven Impairment Restricted left ankle ROM Casting Supervisor Goal (LTG) Pt's ROM to improve from 0?->8 ? Dorsiflexion and 20?->35? Inversion LTG Duration 05/23/20 Six Impairment Pt exhibits collapsed L arch, navicular 1.4 cm closer to ground in standing Mcfp Goal (LTG) L navicular measured at 4 cm from ground in standing LTG Duration 05/23/20 Five Impairment LEFS score of 27/80 Casting Supervisor Goal (LTG) LEFS score of 35/80 LTG Duration 04/12/20 Four Impairment Right hip weakness Mcfp Goal (LTG) Patient will exhibit 1/2 grade increase in MMT to right adductors for improvement of functional weight bearing mobility. LTG Duration 04/12/20 Three Impairment Pt unable to stand longer than 10 minutes without increased symptoms Casting Supervisor Goal (LTG) Pt to be able to stand 25 minutes with no increase in symptoms LTG Duration 04/12/20 Two Impairment Pt has difficulty donning and doffing footwear Casting Supervisor Goal (LTG) Pt to exhibit moderate adductor tone to allow her to don and doff footwear without assistance LTG Duration 04/12/20 One Impairment Pt does not have an appropriate home exercise program Short Term Goal (STG) Pt to be independent and compliant with an appropriate home exercise program STG Duration 03/12/20 Assessment Summary Assessment Pt doing much better today, may be appropriate to work toward strengthening next visit. Physical Therapy Plan Frequency and Duration Frequency of Treatment 2x/Week Duration of Treatment 3 months Plan of Care Start Date 03/23/20 Plan of Care End Date 06/21/20 Therapeutic Interventions Therapeutic Interventions Home Exercise Program,Joint Mobilizations,Manual Therapy, Patient/Caregiver Education, Self-Care/Home Management,Soft Tissue Mobilization, Therapeutic Exercises Modalities Cold Pack/Ice Massage,Electric Stimulation,Hot Packs Next Visit Focus/Plan Next Note Type Treatment Note Next Visit Plan STM, Flexibility/soft tissue stretching, hip strengthening, ankle ROM, ankle/foot strengthening
--- NOTE | 2020-06-01 15:18 | PT.OTN ---
Current Diagnoses Pain in right hip (06/01/20) Stiffness of right hip, not elsewhere classified (06/01/20) Pain in right foot (06/01/20) Pain in left foot (06/01/20) Weakness (06/01/20) Physical Therapy Treatment Note PT-OP-A Visit Information Start: 09/05/19 13:49 Freq: Status: Active Protocol: Document 06/01/20 14:30 DCW (Rec: 06/01/20 15:17 DCW [id number]) Out-Patient Physical Therapy Visit Information Visit Information Visit Type Treatment Note Visit Start Time 14:30 Visit Stop Time 15:25 Total Visit Minutes 55 Visit Number 25 Number of HOLLOCK MAKER Visits 0 Evaluation Information Evaluation Date 09/04/19 PT-OP-B Current Condition Start: 09/05/19 13:49 Freq: Status: Active Protocol: Document 03/23/20 12:05 DCW (Rec: 03/23/20 13:38 DCW [id number]) Current Condition History of Current Condition History of Current Condition Pt is a 59 year old female presenting with a one month history of pain at her proximal medial right hip/ groin. Pt reports she was having slight discomfort in the area for a few weeks, and then slept with a heating pad on the area one night, and woke up in much more pain. Pt reports sh has been diagnosed with severe arthritis and sarcoidosis, which she has recently started medication for. Pt reports she is unable to sit with her legs crossed, and needs help occasionally to don or doff her socks and shoes. Pt also notes that she is unable to stand longer than 10 minutes, but that is not a big priority for me. ADDENDUM 03/23/20: Pt has a new referral for bilateral foot pain, would like this addressed today. Pt reports she has a multi-year history of pain, feels like her left foot is twisted inside my shoe, and feels that her right ankle is constantly swollen. PT-OP-C Subjective Start: 09/05/19 13:49 Freq: Status: Active Protocol: Document 06/01/20 14:30 DCW (Rec: 06/01/20 15:17 DCW [id number]) OP-PT Subjective Patient Comments Patient Comments Pt notes she is doing pretty well today. Does admit she was having a lot of back pain last week. PT-OP-F Manual Assessment Start: 09/05/19 13:49 Freq: Status: Active Protocol: Document 03/23/20 12:05 DCW (Rec: 03/23/20 13:38 DCW [id number]) Manual Assessments Other Manual Assessments Other Manual Assessments Collapsed arch on L Ground to navicular bone; L:3. 2 cm, R:4.6 cm PT-OP-J Posture/Palpation/Skin Start: 03/23/20 13:31 Freq: Status: Active Protocol: Document 03/23/20 12:05 DCW (Rec: 03/23/20 13:38 DCW [id number]) Skin Assessment Circumference Measurement 2 Location Right Figure-8 Measurement (Centimeters) 57.6 Comments Left Figure-8: 53.2 1 Location Right transmalleolar Measurement (Centimeters) 28.9 Comments Left transmalleolar: 26.1 PT-OP-K Range of Motion Start: 09/05/19 13:49 Freq: Status: Active Protocol: Document 03/23/20 12:05 DCW (Rec: 03/23/20 13:38 DCW [id number]) Ankle and Foot Goniometric Range of Motion Ankle and Foot Right Active Testing Position Sitting Dorsiflexion with Knee Flexed 8 Plantarflexion 50 Inversion 38 Eversion 20 Left Active Ankle/Foot ROM WFL No Testing Position Sitting Dorsiflexion with Knee Flexed 0 Plantarflexion 43 Inversion 20 Eversion 18 PT-OP-L Special Tests Start: 09/05/19 13:49 Freq: Status: Active Protocol: Document 02/10/20 10:43 DCW (Rec: 02/10/20 11:09 DCW [id number]) Special Tests Lumbar Spine Special Tests Manual Traction Comments R long-axis traction provided substantial relief for pt Hip Special Tests Straight Leg Raise Test Results Negative Piriformis Test Results Negative SANDRA Test Results Ispilateral pain bilaterally Scour Test Test Results Negative PT-OP-M Strength Start: 09/05/19 13:49 Freq: Status: Active Protocol: Document 03/23/20 12:05 DCW (Rec: 03/23/20 13:38 DCW [id number]) Ankle/Foot Strength Ankle and Foot Manual Muscle Testing Right Dorsiflexion (L4) 5 Normal Plantarflexion (S1) 4- Good- Inversion 4 Good Eversion (S1) 4+ Good+ Left Dorsiflexion (L4) 4+ Good+ Plantarflexion (S1) 3+ Fair+ Inversion 4 Good Eversion (S1) 4 Good PT-OP-Q Treatments Start: 09/05/19 13:49 Freq: Status: Active Protocol: Document 06/01/20 14:30 DCW (Rec: 06/01/20 15:17 DCW [id number]) Manual Therapy Treatment Soft Tissue Mobilization 4 Body Location R Piriformis Mobilization Type Strumming,Sustained Pressure, Trigger Point Release Intensity/Depth Deep Body Position Sidelying 3 Body Location B ITB Mobilization Type Strumming,Sustained Pressure, Trigger Point Release Intensity/Depth Superficial Body Position Hooklying 2 Body Location B Psoas Mobilization Type Strumming,Sustained Pressure Body Position Hooklying 1 Body Location B Adductor Mobilization Type Strumming,Sustained Pressure, Trigger Point Release Intensity/Depth Superficial Body Position Hooklying Joint Mobilizations 2 Joint B MTP joint mobs Grade III Body Position Sitting 1 Joint B Talofibular joint Direction Inferior Grade III Body Position Sitting PT-OP-R Modalities Start: 09/05/19 13:49 Freq: Status: Active Protocol: Document 06/01/20 14:30 DCW (Rec: 06/01/20 15:17 DCW [id number]) Electric Stimulation Electric Stimulation Interferential Current (IFC) Body Location R hip/low back Cycle Continuous Patient Position Sidelying Combined With Heat/Cold Hot Pack PT-OP-T Assessment and Plan Start: 09/05/19 13:49 Freq: Status: Active Protocol: Document 06/01/20 14:30 DCW (Rec: 06/01/20 15:17 DCW [id number]) Physical Therapy Assessment Impairments Impairments Functional Mobility,Pain,ROM, Soft Tissue Mobility,Strength, Tone Goals Seven Impairment Restricted left ankle ROM Jewel Inspector Goal (LTG) Pt's ROM to improve from 0?->8 ? Dorsiflexion and 20?->35? Inversion LTG Duration 06/21/20 Six Impairment Pt exhibits collapsed L arch, navicular 1.4 cm closer to ground in standing Jewel Inspector Goal (LTG) L navicular measured at 4 cm from ground in standing LTG Duration 06/21/20 Five Impairment LEFS score of 27/80 Jewel Inspector Goal (LTG) LEFS score of 35/80 LTG Duration 06/21/20 Four Impairment Right hip weakness Jewel Inspector Goal (LTG) Patient will exhibit 1/2 grade increase in MMT to right adductors for improvement of functional weight bearing mobility. LTG Duration 06/21/20 Three Impairment Pt unable to stand longer than 10 minutes without increased symptoms Intermediate Goal (LTG) Pt to be able to stand 25 minutes with no increase in symptoms LTG Duration 06/21/20 Two Impairment Pt has difficulty donning and doffing footwear Intermediate Goal (LTG) Pt to exhibit moderate adductor tone to allow her to don and doff footwear without assistance LTG Duration 06/21/20 One Impairment Pt does not have an appropriate home exercise program Short Term Goal (STG) Pt to be independent and compliant with an appropriate home exercise program STG Duration 06/12/20 Assessment Summary Assessment Continue to plan on switching to more strengthening. Today pt was fairly tender after a two week absence from PT Physical Therapy Plan Frequency and Duration Frequency of Treatment 2x/Week Duration of Treatment 3 months Plan of Care Start Date 03/23/20 Plan of Care End Date 06/21/20 Therapeutic Interventions Therapeutic Interventions Home Exercise Program,Joint Mobilizations,Manual Therapy, Patient/Caregiver Education, Self-Care/Home Management,Soft Tissue Mobilization, Therapeutic Exercises Modalities Cold Pack/Ice Massage,Electric Stimulation,Hot Packs Next Visit Focus/Plan Next Note Type Treatment Note Next Visit Plan STM, Flexibility/soft tissue stretching, hip strengthening, ankle ROM, ankle/foot strengthening
--- NOTE | 2020-06-03 15:14 | PT.OTN ---
Current Diagnoses Pain in right hip (06/03/20) Stiffness of right hip, not elsewhere classified (06/03/20) Pain in right foot (06/03/20) Pain in left foot (06/03/20) Weakness (06/03/20) Physical Therapy Treatment Note PT-OP-A Visit Information Start: 09/05/19 13:49 Freq: Status: Active Protocol: Document 06/03/20 14:30 DCW (Rec: 06/03/20 15:14 DCW [id number]) Out-Patient Physical Therapy Visit Information Visit Information Visit Type Treatment Note Visit Start Time 14:30 Visit Stop Time 15:20 Total Visit Minutes 50 Visit Number 26 Number of CONE PICKER Visits 0 Evaluation Information Evaluation Date 09/04/19 PT-OP-B Current Condition Start: 09/05/19 13:49 Freq: Status: Active Protocol: Document 03/23/20 12:05 DCW (Rec: 03/23/20 13:38 DCW [id number]) Current Condition History of Current Condition History of Current Condition Pt is a 59 year old female presenting with a one month history of pain at her proximal medial right hip/ groin. Pt reports she was having slight discomfort in the area for a few weeks, and then slept with a heating pad on the area one night, and woke up in much more pain. Pt reports sh has been diagnosed with severe arthritis and sarcoidosis, which she has recently started medication for. Pt reports she is unable to sit with her legs crossed, and needs help occasionally to don or doff her socks and shoes. Pt also notes that she is unable to stand longer than 10 minutes, but that is not a big priority for me. ADDENDUM 03/23/20: Pt has a new referral for bilateral foot pain, would like this addressed today. Pt reports she has a multi-year history of pain, feels like her left foot is twisted inside my shoe, and feels that her right ankle is constantly swollen. PT-OP-C Subjective Start: 09/05/19 13:49 Freq: Status: Active Protocol: Document 06/03/20 14:30 DCW (Rec: 06/03/20 15:14 DCW [id number]) OP-PT Subjective Patient Comments Patient Comments Pt notes she is doing alright today. PT-OP-F Manual Assessment Start: 09/05/19 13:49 Freq: Status: Active Protocol: Document 03/23/20 12:05 DCW (Rec: 03/23/20 13:38 DCW [id number]) Manual Assessments Other Manual Assessments Other Manual Assessments Collapsed arch on L Ground to navicular bone; L:3. 2 cm, R:4.6 cm PT-OP-J Posture/Palpation/Skin Start: 03/23/20 13:31 Freq: Status: Active Protocol: Document 03/23/20 12:05 DCW (Rec: 03/23/20 13:38 DCW [id number]) Skin Assessment Circumference Measurement 2 Location Right Figure-8 Measurement (Centimeters) 57.6 Comments Left Figure-8: 53.2 1 Location Right transmalleolar Measurement (Centimeters) 28.9 Comments Left transmalleolar: 26.1 PT-OP-K Range of Motion Start: 09/05/19 13:49 Freq: Status: Active Protocol: Document 03/23/20 12:05 DCW (Rec: 03/23/20 13:38 DCW [id number]) Ankle and Foot Goniometric Range of Motion Ankle and Foot Right Active Testing Position Sitting Dorsiflexion with Knee Flexed 8 Plantarflexion 50 Inversion 38 Eversion 20 Left Active Ankle/Foot ROM WFL No Testing Position Sitting Dorsiflexion with Knee Flexed 0 Plantarflexion 43 Inversion 20 Eversion 18 PT-OP-L Special Tests Start: 09/05/19 13:49 Freq: Status: Active Protocol: Document 02/10/20 10:43 DCW (Rec: 02/10/20 11:09 DCW [id number]) Special Tests Lumbar Spine Special Tests Manual Traction Comments R long-axis traction provided substantial relief for pt Hip Special Tests Straight Leg Raise Test Results Negative Piriformis Test Results Negative SANDRA Test Results Ispilateral pain bilaterally Scour Test Test Results Negative PT-OP-M Strength Start: 09/05/19 13:49 Freq: Status: Active Protocol: Document 03/23/20 12:05 DCW (Rec: 03/23/20 13:38 DCW [id number]) Ankle/Foot Strength Ankle and Foot Manual Muscle Testing Right Dorsiflexion (L4) 5 Normal Plantarflexion (S1) 4- Good- Inversion 4 Good Eversion (S1) 4+ Good+ Left Dorsiflexion (L4) 4+ Good+ Plantarflexion (S1) 3+ Fair+ Inversion 4 Good Eversion (S1) 4 Good PT-OP-Q Treatments Start: 09/05/19 13:49 Freq: Status: Active Protocol: Document 06/03/20 14:30 DCW (Rec: 06/03/20 15:14 DCW [id number]) Gym Equipment Shuttle Recovery Bilateral Squats Resistance 75# Shuttle Recovery Platform Stable Reps/Time x20 Unilateral Squats Resistance 50# Shuttle Recovery Platform Stable Reps/Time x15 Manual Therapy Treatment Soft Tissue Mobilization 4 Body Location R Piriformis Mobilization Type Strumming,Sustained Pressure, Trigger Point Release Intensity/Depth Deep Body Position Sidelying 3 Body Location B ITB Mobilization Type Strumming,Sustained Pressure, Trigger Point Release Intensity/Depth Superficial Body Position Hooklying 2 Body Location B Psoas Mobilization Type Strumming,Sustained Pressure Body Position Hooklying 1 Body Location B Adductor Mobilization Type Strumming,Sustained Pressure, Trigger Point Release Intensity/Depth Superficial Body Position Hooklying Joint Mobilizations 2 Joint B MTP joint mobs Grade III Body Position Sitting 1 Joint B Talofibular joint Direction Inferior Grade III Body Position Sitting PT-OP-R Modalities Start: 09/05/19 13:49 Freq: Status: Active Protocol: Document 06/03/20 14:30 DCW (Rec: 06/03/20 15:14 DCW [id number]) Electric Stimulation Electric Stimulation Interferential Current (IFC) Body Location low back Cycle Continuous Patient Position Prone Combined With Heat/Cold Hot Pack PT-OP-T Assessment and Plan Start: 09/05/19 13:49 Freq: Status: Active Protocol: Document 06/03/20 14:30 DCW (Rec: 06/03/20 15:14 DCW [id number]) Physical Therapy Assessment Impairments Impairments Functional Mobility,Pain,ROM, Soft Tissue Mobility,Strength, Tone Goals Seven Impairment Restricted left ankle ROM [facility] Chief Executive Officer Goal (LTG) Pt's ROM to improve from 0?->8 ? Dorsiflexion and 20?->35? Inversion LTG Duration 06/21/20 Six Impairment Pt exhibits collapsed L arch, navicular 1.4 cm closer to ground in standing [facility] Chief Executive Officer Goal (LTG) L navicular measured at 4 cm from ground in standing LTG Duration 06/21/20 Five Impairment LEFS score of 27/80 [facility] Chief Executive Officer Goal (LTG) LEFS score of 35/80 LTG Duration 06/21/20 Four Impairment Right hip weakness [facility] Goal (LTG) Patient will exhibit 1/2 grade increase in MMT to right adductors for improvement of functional weight bearing mobility. LTG Duration 06/21/20 Three Impairment Pt unable to stand longer than 10 minutes without increased symptoms [facility] Goal (LTG) Pt to be able to stand 25 minutes with no increase in symptoms LTG Duration 06/21/20 Two Impairment Pt has difficulty donning and doffing footwear [facility] Goal (LTG) Pt to exhibit moderate adductor tone to allow her to don and doff footwear without assistance LTG Duration 06/21/20 One Impairment Pt does not have an appropriate home exercise program Short Term Goal (STG) Pt to be independent and compliant with an appropriate home exercise program STG Duration 06/12/20 Assessment Summary Assessment Pt did much better today, able to start with some gentle strengthening on the leg press . Pt had no complaints during TherEx. Physical Therapy Plan Frequency and Duration Frequency of Treatment 2x/Week Duration of Treatment 3 months Plan of Care Start Date 03/23/20 Plan of Care End Date 06/21/20 Therapeutic Interventions Therapeutic Interventions Home Exercise Program,Joint Mobilizations,Manual Therapy, Patient/Caregiver Education, Self-Care/Home Management,Soft Tissue Mobilization, Therapeutic Exercises Modalities Cold Pack/Ice Massage,Electric Stimulation,Hot Packs Next Visit Focus/Plan Next Note Type Treatment Note Next Visit Plan STM, Flexibility/soft tissue stretching, hip strengthening, ankle ROM, ankle/foot strengthening
--- NOTE | 2020-06-08 15:16 | PT.OTN ---
Current Diagnoses Pain in right hip (06/08/20) Stiffness of right hip, not elsewhere classified (06/08/20) Pain in right foot (06/08/20) Pain in left foot (06/08/20) Weakness (06/08/20) Physical Therapy Treatment Note PT-OP-A Visit Information Start: 09/05/19 13:49 Freq: Status: Active Protocol: Document 06/08/20 14:30 DCW (Rec: 06/08/20 15:16 DCW [id number]) Out-Patient Physical Therapy Visit Information Visit Information Visit Type Treatment Note Visit Start Time 14:30 Visit Stop Time 15:25 Total Visit Minutes 55 Visit Number 27 Number of SENIOR CONTROLS TECHNICIAN Visits 0 Evaluation Information Evaluation Date 09/04/19 PT-OP-B Current Condition Start: 09/05/19 13:49 Freq: Status: Active Protocol: Document 03/23/20 12:05 DCW (Rec: 03/23/20 13:38 DCW [id number]) Current Condition History of Current Condition History of Current Condition Pt is a 59 year old female presenting with a one month history of pain at her proximal medial right hip/ groin. Pt reports she was having slight discomfort in the area for a few weeks, and then slept with a heating pad on the area one night, and woke up in much more pain. Pt reports sh has been diagnosed with severe arthritis and sarcoidosis, which she has recently started medication for. Pt reports she is unable to sit with her legs crossed, and needs help occasionally to don or doff her socks and shoes. Pt also notes that she is unable to stand longer than 10 minutes, but that is not a big priority for me. ADDENDUM 03/23/20: Pt has a new referral for bilateral foot pain, would like this addressed today. Pt reports she has a multi-year history of pain, feels like her left foot is twisted inside my shoe, and feels that her right ankle is constantly swollen. PT-OP-C Subjective Start: 09/05/19 13:49 Freq: Status: Active Protocol: Document 06/08/20 14:30 DCW (Rec: 06/08/20 15:16 DCW [id number]) OP-PT Subjective Patient Comments Patient Comments I'm feeling okay today. I seem to have a lot of neuropathy in my right foot, but I'm going pretty good. PT-OP-F Manual Assessment Start: 09/05/19 13:49 Freq: Status: Active Protocol: Document 03/23/20 12:05 DCW (Rec: 03/23/20 13:38 DCW [id number]) Manual Assessments Other Manual Assessments Other Manual Assessments Collapsed arch on L Ground to navicular bone; L:3. 2 cm, R:4.6 cm PT-OP-J Posture/Palpation/Skin Start: 03/23/20 13:31 Freq: Status: Active Protocol: Document 03/23/20 12:05 DCW (Rec: 03/23/20 13:38 DCW [id number]) Skin Assessment Circumference Measurement 2 Location Right Figure-8 Measurement (Centimeters) 57.6 Comments Left Figure-8: 53.2 1 Location Right transmalleolar Measurement (Centimeters) 28.9 Comments Left transmalleolar: 26.1 PT-OP-K Range of Motion Start: 09/05/19 13:49 Freq: Status: Active Protocol: Document 03/23/20 12:05 DCW (Rec: 03/23/20 13:38 DCW [id number]) Ankle and Foot Goniometric Range of Motion Ankle and Foot Right Active Testing Position Sitting Dorsiflexion with Knee Flexed 8 Plantarflexion 50 Inversion 38 Eversion 20 Left Active Ankle/Foot ROM WFL No Testing Position Sitting Dorsiflexion with Knee Flexed 0 Plantarflexion 43 Inversion 20 Eversion 18 PT-OP-L Special Tests Start: 09/05/19 13:49 Freq: Status: Active Protocol: Document 02/10/20 10:43 DCW (Rec: 02/10/20 11:09 DCW [id number]) Special Tests Lumbar Spine Special Tests Manual Traction Comments R long-axis traction provided substantial relief for pt Hip Special Tests Straight Leg Raise Test Results Negative Piriformis Test Results Negative SANDRA Test Results Ispilateral pain bilaterally Scour Test Test Results Negative PT-OP-M Strength Start: 09/05/19 13:49 Freq: Status: Active Protocol: Document 03/23/20 12:05 DCW (Rec: 03/23/20 13:38 DCW [id number]) Ankle/Foot Strength Ankle and Foot Manual Muscle Testing Right Dorsiflexion (L4) 5 Normal Plantarflexion (S1) 4- Good- Inversion 4 Good Eversion (S1) 4+ Good+ Left Dorsiflexion (L4) 4+ Good+ Plantarflexion (S1) 3+ Fair+ Inversion 4 Good Eversion (S1) 4 Good PT-OP-Q Treatments Start: 09/05/19 13:49 Freq: Status: Active Protocol: Document 06/08/20 14:30 DCW (Rec: 06/08/20 15:16 DCW [id number]) Gym Equipment Shuttle Recovery Bilateral Squats Resistance 100# Shuttle Recovery Platform Stable Reps/Time x15 Unilateral Squats Resistance 50# Shuttle Recovery Platform Stable Reps/Time x15 Manual Therapy Treatment Soft Tissue Mobilization 3 Body Location B ITB Mobilization Type Strumming,Sustained Pressure, Trigger Point Release Intensity/Depth Superficial Body Position Hooklying Joint Mobilizations 2 Joint B MTP joint mobs Grade III Body Position Sitting 1 Joint B Talofibular joint Direction Inferior Grade III Body Position Sitting PT-OP-R Modalities Start: 09/05/19 13:49 Freq: Status: Active Protocol: Document 06/08/20 14:30 DCW (Rec: 06/08/20 15:16 DCW [id number]) Electric Stimulation Electric Stimulation Interferential Current (IFC) Body Location low back Cycle Continuous Patient Position Prone Combined With Heat/Cold Hot Pack PT-OP-T Assessment and Plan Start: 09/05/19 13:49 Freq: Status: Active Protocol: Document 06/08/20 14:30 DCW (Rec: 06/08/20 15:16 DCW [id number]) Physical Therapy Assessment Impairments Impairments Functional Mobility,Pain,ROM, Soft Tissue Mobility,Strength, Tone Goals Seven Impairment Restricted left ankle ROM [facility] Goal (LTG) Pt's ROM to improve from 0?->8 ? Dorsiflexion and 20?->35? Inversion LTG Duration 06/21/20 Six Impairment Pt exhibits collapsed L arch, navicular 1.4 cm closer to ground in standing Line Staker Goal (LTG) L navicular measured at 4 cm from ground in standing LTG Duration 06/21/20 Five Impairment LEFS score of 27/80 [facility] Goal (LTG) LEFS score of 35/80 LTG Duration 06/21/20 Four Impairment Right hip weakness Line Staker Goal (LTG) Patient will exhibit 1/2 grade increase in MMT to right adductors for improvement of functional weight bearing mobility. LTG Duration 06/21/20 Three Impairment Pt unable to stand longer than 10 minutes without increased symptoms Line Staker Goal (LTG) Pt to be able to stand 25 minutes with no increase in symptoms LTG Duration 06/21/20 Two Impairment Pt has difficulty donning and doffing footwear Line Staker Goal (LTG) Pt to exhibit moderate adductor tone to allow her to don and doff footwear without assistance LTG Duration 06/21/20 One Impairment Pt does not have an appropriate home exercise program Short Term Goal (STG) Pt to be independent and compliant with an appropriate home exercise program STG Duration 06/12/20 Assessment Summary Assessment Manual therapy focused today more on pt's feet due to her complaints of increased numbness and tingling in her right foot. Pt noted feeling improved circulation and sensation following treatment. Physical Therapy Plan Frequency and Duration Frequency of Treatment 2x/Week Duration of Treatment 3 months Plan of Care Start Date 03/23/20 Plan of Care End Date 06/21/20 Therapeutic Interventions Therapeutic Interventions Home Exercise Program,Joint Mobilizations,Manual Therapy, Patient/Caregiver Education, Self-Care/Home Management,Soft Tissue Mobilization, Therapeutic Exercises Modalities Cold Pack/Ice Massage,Electric Stimulation,Hot Packs Next Visit Focus/Plan Next Note Type Treatment Note Next Visit Plan STM, Flexibility/soft tissue stretching, hip strengthening, ankle ROM, ankle/foot strengthening
--- NOTE | 2020-06-10 15:23 | PT.OTN ---
Current Diagnoses Pain in right hip (06/10/20) Stiffness of right hip, not elsewhere classified (06/10/20) Pain in right foot (06/10/20) Pain in left foot (06/10/20) Weakness (06/10/20) Physical Therapy Treatment Note PT-OP-A Visit Information Start: 09/05/19 13:49 Freq: Status: Active Protocol: Document 06/10/20 14:30 DCW (Rec: 06/10/20 15:23 DCW [id number]) Out-Patient Physical Therapy Visit Information Visit Information Visit Type Treatment Note Visit Start Time 14:30 Visit Stop Time 15:25 Total Visit Minutes 55 Visit Number 28 Number of AUTOMOBILE [employer]ICE STATION MANAGER Visits 0 Evaluation Information Evaluation Date 09/04/19 PT-OP-B Current Condition Start: 09/05/19 13:49 Freq: Status: Active Protocol: Document 03/23/20 12:05 DCW (Rec: 03/23/20 13:38 DCW [id number]) Current Condition History of Current Condition History of Current Condition Pt is a 59 year old female presenting with a one month history of pain at her proximal medial right hip/ groin. Pt reports she was having slight discomfort in the area for a few weeks, and then slept with a heating pad on the area one night, and woke up in much more pain. Pt reports sh has been diagnosed with severe arthritis and sarcoidosis, which she has recently started medication for. Pt reports she is unable to sit with her legs crossed, and needs help occasionally to don or doff her socks and shoes. Pt also notes that she is unable to stand longer than 10 minutes, but that is not a big priority for me. ADDENDUM 03/23/20: Pt has a new referral for bilateral foot pain, would like this addressed today. Pt reports she has a multi-year history of pain, feels like her left foot is twisted inside my shoe, and feels that her right ankle is constantly swollen. PT-OP-C Subjective Start: 09/05/19 13:49 Freq: Status: Active Protocol: Document 06/10/20 14:30 DCW (Rec: 06/10/20 15:23 DCW [id number]) OP-PT Subjective Patient Comments Patient Comments Pt not up for using the leg press today. PT-OP-F Manual Assessment Start: 09/05/19 13:49 Freq: Status: Active Protocol: Document 03/23/20 12:05 DCW (Rec: 03/23/20 13:38 DCW [id number]) Manual Assessments Other Manual Assessments Other Manual Assessments Collapsed arch on L Ground to navicular bone; L:3. 2 cm, R:4.6 cm PT-OP-J Posture/Palpation/Skin Start: 03/23/20 13:31 Freq: Status: Active Protocol: Document 03/23/20 12:05 DCW (Rec: 03/23/20 13:38 DCW [id number]) Skin Assessment Circumference Measurement 2 Location Right Figure-8 Measurement (Centimeters) 57.6 Comments Left Figure-8: 53.2 1 Location Right transmalleolar Measurement (Centimeters) 28.9 Comments Left transmalleolar: 26.1 PT-OP-K Range of Motion Start: 09/05/19 13:49 Freq: Status: Active Protocol: Document 03/23/20 12:05 DCW (Rec: 03/23/20 13:38 DCW [id number]) Ankle and Foot Goniometric Range of Motion Ankle and Foot Right Active Testing Position Sitting Dorsiflexion with Knee Flexed 8 Plantarflexion 50 Inversion 38 Eversion 20 Left Active Ankle/Foot ROM WFL No Testing Position Sitting Dorsiflexion with Knee Flexed 0 Plantarflexion 43 Inversion 20 Eversion 18 PT-OP-L Special Tests Start: 09/05/19 13:49 Freq: Status: Active Protocol: Document 02/10/20 10:43 DCW (Rec: 02/10/20 11:09 DCW [id number]) Special Tests Lumbar Spine Special Tests Manual Traction Comments R long-axis traction provided substantial relief for pt Hip Special Tests Straight Leg Raise Test Results Negative Piriformis Test Results Negative SANDRA Test Results Ispilateral pain bilaterally Scour Test Test Results Negative PT-OP-M Strength Start: 09/05/19 13:49 Freq: Status: Active Protocol: Document 03/23/20 12:05 DCW (Rec: 03/23/20 13:38 DCW [id number]) Ankle/Foot Strength Ankle and Foot Manual Muscle Testing Right Dorsiflexion (L4) 5 Normal Plantarflexion (S1) 4- Good- Inversion 4 Good Eversion (S1) 4+ Good+ Left Dorsiflexion (L4) 4+ Good+ Plantarflexion (S1) 3+ Fair+ Inversion 4 Good Eversion (S1) 4 Good PT-OP-Q Treatments Start: 09/05/19 13:49 Freq: Status: Active Protocol: Document 06/10/20 14:30 DCW (Rec: 06/10/20 15:23 DCW [id number]) Manual Therapy Treatment Soft Tissue Mobilization 4 Body Location R Piriformis Mobilization Type Strumming,Sustained Pressure, Trigger Point Release Intensity/Depth Deep Body Position Sidelying 3 Body Location B ITB Mobilization Type Strumming,Sustained Pressure, Trigger Point Release Intensity/Depth Superficial Body Position Hooklying 2 Body Location B Psoas Mobilization Type Strumming,Sustained Pressure Body Position Hooklying 1 Body Location B Adductor Mobilization Type Strumming,Sustained Pressure, Trigger Point Release Intensity/Depth Superficial Body Position Hooklying Joint Mobilizations 2 Joint B MTP joint mobs Grade III Body Position Sitting 1 Joint B Talofibular joint Direction Inferior Grade III Body Position Sitting PT-OP-R Modalities Start: 09/05/19 13:49 Freq: Status: Active Protocol: Document 06/10/20 14:30 DCW (Rec: 06/10/20 15:23 DCW [id number]) Electric Stimulation Electric Stimulation Interferential Current (IFC) Body Location low back Cycle Continuous Patient Position Prone Combined With Heat/Cold Hot Pack PT-OP-T Assessment and Plan Start: 09/05/19 13:49 Freq: Status: Active Protocol: Document 06/10/20 14:30 DCW (Rec: 06/10/20 15:23 DCW [id number]) Physical Therapy Assessment Impairments Impairments Functional Mobility,Pain,ROM, Soft Tissue Mobility,Strength, Tone Goals Seven Impairment Restricted left ankle ROM Integration Developer Goal (LTG) Pt's ROM to improve from 0?->8 ? Dorsiflexion and 20?->35? Inversion LTG Duration 06/21/20 Six Impairment Pt exhibits collapsed L arch, navicular 1.4 cm closer to ground in standing Longterm Goal (LTG) L navicular measured at 4 cm from ground in standing LTG Duration 06/21/20 Five Impairment LEFS score of 27/80 Longterm Goal (LTG) LEFS score of 35/80 LTG Duration 06/21/20 Four Impairment Right hip weakness Integration Developer Goal (LTG) Patient will exhibit 1/2 grade increase in MMT to right adductors for improvement of functional weight bearing mobility. LTG Duration 06/21/20 Three Impairment Pt unable to stand longer than 10 minutes without increased symptoms Integration Developer Goal (LTG) Pt to be able to stand 25 minutes with no increase in symptoms LTG Duration 06/21/20 Two Impairment Pt has difficulty donning and doffing footwear Integration Developer Goal (LTG) Pt to exhibit moderate adductor tone to allow her to don and doff footwear without assistance LTG Duration 06/21/20 One Impairment Pt does not have an appropriate home exercise program Short Term Goal (STG) Pt to be independent and compliant with an appropriate home exercise program STG Duration 06/12/20 Assessment Summary Assessment Pt overall tolerated more STM today than she normally does, admitted nothing was too sore with manual therapy. Pt concerned about her new footwear, noting she feels like she needs to get a half size bigger because her left foot just feels like it is kind of twisted in there. Physical Therapy Plan Frequency and Duration Frequency of Treatment 2x/Week Duration of Treatment 3 months Plan of Care Start Date 03/23/20 Plan of Care End Date 06/21/20 Therapeutic Interventions Therapeutic Interventions Home Exercise Program,Joint Mobilizations,Manual Therapy, Patient/Caregiver Education, Self-Care/Home Management,Soft Tissue Mobilization, Therapeutic Exercises Modalities Cold Pack/Ice Massage,Electric Stimulation,Hot Packs Next Visit Focus/Plan Next Note Type Treatment Note Next Visit Plan STM, Flexibility/soft tissue stretching, hip strengthening, ankle ROM, ankle/foot strengthening
--- NOTE | 2020-06-15 15:23 | PT.OTN ---
Current Diagnoses Pain in right hip (06/15/20) Stiffness of right hip, not elsewhere classified (06/15/20) Pain in right foot (06/15/20) Pain in left foot (06/15/20) Weakness (06/15/20) Physical Therapy Treatment Note PT-OP-A Visit Information Start: 09/05/19 13:49 Freq: Status: Active Protocol: Document 06/15/20 14:35 DCW (Rec: 06/15/20 15:23 DCW [id number]) Out-Patient Physical Therapy Visit Information Visit Information Visit Type Treatment Note Visit Start Time 14:35 Visit Stop Time 15:25 Total Visit Minutes 50 Visit Number 29 Number of MANAGER IT TRAINING Visits 0 Evaluation Information Evaluation Date 09/04/19 PT-OP-B Current Condition Start: 09/05/19 13:49 Freq: Status: Active Protocol: Document 03/23/20 12:05 DCW (Rec: 03/23/20 13:38 DCW [id number]) Current Condition History of Current Condition History of Current Condition Pt is a 59 year old female presenting with a one month history of pain at her proximal medial right hip/ groin. Pt reports she was having slight discomfort in the area for a few weeks, and then slept with a heating pad on the area one night, and woke up in much more pain. Pt reports sh has been diagnosed with severe arthritis and sarcoidosis, which she has recently started medication for. Pt reports she is unable to sit with her legs crossed, and needs help occasionally to don or doff her socks and shoes. Pt also notes that she is unable to stand longer than 10 minutes, but that is not a big priority for me. ADDENDUM 03/23/20: Pt has a new referral for bilateral foot pain, would like this addressed today. Pt reports she has a multi-year history of pain, feels like her left foot is twisted inside my shoe, and feels that her right ankle is constantly swollen. PT-OP-C Subjective Start: 09/05/19 13:49 Freq: Status: Active Protocol: Document 06/15/20 14:35 DCW (Rec: 06/15/20 15:23 DCW [id number]) OP-PT Subjective Patient Comments Patient Comments I try to keep moving, but I tend to move most in my bed. I feel like that just gives me the most overall support. PT-OP-F Manual Assessment Start: 09/05/19 13:49 Freq: Status: Active Protocol: Document 03/23/20 12:05 DCW (Rec: 03/23/20 13:38 DCW [id number]) Manual Assessments Other Manual Assessments Other Manual Assessments Collapsed arch on L Ground to navicular bone; L:3. 2 cm, R:4.6 cm PT-OP-J Posture/Palpation/Skin Start: 03/23/20 13:31 Freq: Status: Active Protocol: Document 03/23/20 12:05 DCW (Rec: 03/23/20 13:38 DCW [id number]) Skin Assessment Circumference Measurement 2 Location Right Figure-8 Measurement (Centimeters) 57.6 Comments Left Figure-8: 53.2 1 Location Right transmalleolar Measurement (Centimeters) 28.9 Comments Left transmalleolar: 26.1 PT-OP-K Range of Motion Start: 09/05/19 13:49 Freq: Status: Active Protocol: Document 03/23/20 12:05 DCW (Rec: 03/23/20 13:38 DCW [id number]) Ankle and Foot Goniometric Range of Motion Ankle and Foot Right Active Testing Position Sitting Dorsiflexion with Knee Flexed 8 Plantarflexion 50 Inversion 38 Eversion 20 Left Active Ankle/Foot ROM WFL No Testing Position Sitting Dorsiflexion with Knee Flexed 0 Plantarflexion 43 Inversion 20 Eversion 18 PT-OP-L Special Tests Start: 09/05/19 13:49 Freq: Status: Active Protocol: Document 02/10/20 10:43 DCW (Rec: 02/10/20 11:09 DCW [id number]) Special Tests Lumbar Spine Special Tests Manual Traction Comments R long-axis traction provided substantial relief for pt Hip Special Tests Straight Leg Raise Test Results Negative Piriformis Test Results Negative SANDRA Test Results Ispilateral pain bilaterally Scour Test Test Results Negative PT-OP-M Strength Start: 09/05/19 13:49 Freq: Status: Active Protocol: Document 03/23/20 12:05 DCW (Rec: 03/23/20 13:38 DCW [id number]) Ankle/Foot Strength Ankle and Foot Manual Muscle Testing Right Dorsiflexion (L4) 5 Normal Plantarflexion (S1) 4- Good- Inversion 4 Good Eversion (S1) 4+ Good+ Left Dorsiflexion (L4) 4+ Good+ Plantarflexion (S1) 3+ Fair+ Inversion 4 Good Eversion (S1) 4 Good PT-OP-Q Treatments Start: 09/05/19 13:49 Freq: Status: Active Protocol: Document 06/15/20 14:35 DCW (Rec: 06/15/20 15:23 DCW [id number]) Manual Therapy Treatment Soft Tissue Mobilization 4 Body Location R Piriformis Mobilization Type Strumming,Sustained Pressure, Trigger Point Release Intensity/Depth Deep Body Position Sidelying 3 Body Location B ITB Mobilization Type Strumming,Sustained Pressure, Trigger Point Release Intensity/Depth Superficial Body Position Hooklying 2 Body Location B Psoas Mobilization Type Strumming,Sustained Pressure Body Position Hooklying 1 Body Location B Adductor Mobilization Type Strumming,Sustained Pressure, Trigger Point Release Intensity/Depth Superficial Body Position Hooklying Joint Mobilizations 2 Joint B MTP joint mobs Grade III Body Position Sitting 1 Joint B Talofibular joint Direction Inferior Grade III Body Position Sitting PT-OP-R Modalities Start: 09/05/19 13:49 Freq: Status: Active Protocol: Document 06/15/20 14:35 DCW (Rec: 06/15/20 15:23 DCW [id number]) Electric Stimulation Electric Stimulation Interferential Current (IFC) Body Location low back Cycle Continuous Patient Position Prone Combined With Heat/Cold Hot Pack PT-OP-T Assessment and Plan Start: 09/05/19 13:49 Freq: Status: Active Protocol: Document 06/15/20 14:35 DCW (Rec: 06/15/20 15:23 DCW [id number]) Physical Therapy Assessment Impairments Impairments Functional Mobility,Pain,ROM, Soft Tissue Mobility,Strength, Tone Goals Seven Impairment Restricted left ankle ROM Residential Goal (LTG) Pt's ROM to improve from 0?->8 ? Dorsiflexion and 20?->35? Inversion LTG Duration 06/21/20 Six Impairment Pt exhibits collapsed L arch, navicular 1.4 cm closer to ground in standing Residential Goal (LTG) L navicular measured at 4 cm from ground in standing LTG Duration 06/21/20 Five Impairment LEFS score of 27/80 Residential Goal (LTG) LEFS score of 35/80 LTG Duration 06/21/20 Four Impairment Right hip weakness Residential Goal (LTG) Patient will exhibit 1/2 grade increase in MMT to right adductors for improvement of functional weight bearing mobility. LTG Duration 06/21/20 Three Impairment Pt unable to stand longer than 10 minutes without increased symptoms Residential Goal (LTG) Pt to be able to stand 25 minutes with no increase in symptoms LTG Duration 06/21/20 Two Impairment Pt has difficulty donning and doffing footwear Residential Goal (LTG) Pt to exhibit moderate adductor tone to allow her to don and doff footwear without assistance LTG Duration 06/21/20 One Impairment Pt does not have an appropriate home exercise program Short Term Goal (STG) Pt to be independent and compliant with an appropriate home exercise program STG Duration 06/12/20 Assessment Summary Assessment Pt focus today mainly on her worry about her toe curling onto flexion, worked some on stretching out toe, MCP joint mobilizations, pt felt it was improved afterward. Physical Therapy Plan Frequency and Duration Frequency of Treatment 2x/Week Duration of Treatment 3 months Plan of Care Start Date 03/23/20 Plan of Care End Date 06/21/20 Therapeutic Interventions Therapeutic Interventions Home Exercise Program,Joint Mobilizations,Manual Therapy, Patient/Caregiver Education, Self-Care/Home Management,Soft Tissue Mobilization, Therapeutic Exercises Modalities Cold Pack/Ice Massage,Electric Stimulation,Hot Packs Next Visit Focus/Plan Next Note Type Treatment Note Next Visit Plan STM, Flexibility/soft tissue stretching, hip strengthening, ankle ROM, ankle/foot strengthening
--- NOTE | 2020-07-07 12:36 | PT.OTN ---
Current Diagnoses Pain in right hip (07/07/20) Stiffness of right hip, not elsewhere classified (07/07/20) Pain in right foot (07/07/20) Pain in left foot (07/07/20) Weakness (07/07/20) Physical Therapy Treatment Note PT-OP-A Visit Information Start: 09/05/19 13:49 Freq: Status: Active Protocol: Document 07/07/20 11:15 DCW (Rec: 07/07/20 12:01 DCW [id number]) Out-Patient Physical Therapy Visit Information Visit Information Visit Type Progress Note Visit Start Time 11:15 Visit Stop Time 12:10 Total Visit Minutes 55 Visit Number 30 Number of [employer] MEDICAL SERGEANT Visits 0 Evaluation Information Evaluation Date 09/04/19 PT-OP-B Current Condition Start: 09/05/19 13:49 Freq: Status: Active Protocol: Document 03/23/20 12:05 DCW (Rec: 03/23/20 13:38 DCW [id number]) Current Condition History of Current Condition History of Current Condition Pt is a 59 year old female presenting with a one month history of pain at her proximal medial right hip/ groin. Pt reports she was having slight discomfort in the area for a few weeks, and then slept with a heating pad on the area one night, and woke up in much more pain. Pt reports sh has been diagnosed with severe arthritis and sarcoidosis, which she has recently started medication for. Pt reports she is unable to sit with her legs crossed, and needs help occasionally to don or doff her socks and shoes. Pt also notes that she is unable to stand longer than 10 minutes, but that is not a big priority for me. ADDENDUM 03/23/20: Pt has a new referral for bilateral foot pain, would like this addressed today. Pt reports she has a multi-year history of pain, feels like her left foot is twisted inside my shoe, and feels that her right ankle is constantly swollen. PT-OP-C Subjective Start: 09/05/19 13:49 Freq: Status: Active Protocol: Document 07/07/20 11:15 DCW (Rec: 07/07/20 12:01 DCW [id number]) OP-PT Subjective Patient Comments Patient Comments I still feel like my problem is edema, I just feel like I'm swollen everywhere. PT-OP-F Manual Assessment Start: 09/05/19 13:49 Freq: Status: Active Protocol: Document 07/07/20 11:15 DCW (Rec: 07/07/20 11:44 DCW [id number]) Manual Assessments Soft Tissue Assessment Soft Tissue Mobility Assessment Severe tone and Tenderness to Palpation 4/4: Palpation not allowed along right adductors, worsening from insertion to origin. Moderate tone and Tenderness to Palpation 2/4: Wincing and withdraw along bilateral psoas . Mild complaints of pain and tenderness along B ITB, L Adductors, B Piriformis Other Manual Assessments Other Manual Assessments Collapsed arch on L Ground to navicular bone; L:4. 2 cm, R:4.6 cm PT-OP-J Posture/Palpation/Skin Start: 03/23/20 13:31 Freq: Status: Active Protocol: Document 07/07/20 11:15 DCW (Rec: 07/07/20 11:44 DCW [id number]) Skin Assessment Circumference Measurement 2 Location Right Figure-8 Measurement (Centimeters) 53.1 Comments Left Figure-8: 53.4 1 Location Right transmalleolar Measurement (Centimeters) 26.9 Comments Left transmalleolar: 26.4 PT-OP-K Range of Motion Start: 09/05/19 13:49 Freq: Status: Active Protocol: Document 07/07/20 11:15 DCW (Rec: 07/07/20 11:44 DCW [id number]) Ankle and Foot Goniometric Range of Motion Ankle and Foot Right Active Testing Position Sitting Dorsiflexion with Knee Flexed 8 Plantarflexion 50 Inversion 42 Eversion 20 Left Active Ankle/Foot ROM WFL No Testing Position Sitting Dorsiflexion with Knee Flexed 2 Plantarflexion 50 Inversion 39 Eversion 20 PT-OP-L Special Tests Start: 09/05/19 13:49 Freq: Status: Active Protocol: Document 07/07/20 11:15 DCW (Rec: 07/07/20 11:44 DCW [id number]) Special Tests Lumbar Spine Special Tests Manual Traction Comments R long-axis traction provided substantial relief for pt Hip Special Tests Straight Leg Raise Test Results Negative Piriformis Test Results Negative SANDRA Test Results Negative Scour Test Test Results Negative PT-OP-M Strength Start: 09/05/19 13:49 Freq: Status: Active Protocol: Document 07/07/20 11:15 DCW (Rec: 07/07/20 11:44 DCW [id number]) Hip Strength Hip Manual Muscle Testing Right Flexion (L2) 4- Good- Abduction 4+ Good+ Adduction 4 Good Left Flexion (L2) 4+ Good+ Abduction 4+ Good+ Adduction 4+ Good+ Knee Strength Knee Manual Muscle Testing Left Flexion (S2) 4+ Good+ Extension (L3) 4+ Good+ Right Flexion (S2) 4+ Good+ Extension (L3) 4 Good Ankle/Foot Strength Ankle and Foot Manual Muscle Testing Right Dorsiflexion (L4) 5 Normal Plantarflexion (S1) 4+ Good+ Inversion 4+ Good+ Eversion (S1) 4+ Good+ Left Dorsiflexion (L4) 4+ Good+ Plantarflexion (S1) 4+ Good+ Inversion 4+ Good+ Eversion (S1) 4+ Good+ PT-OP-Q Treatments Start: 09/05/19 13:49 Freq: Status: Active Protocol: Document 07/07/20 11:15 DCW (Rec: 07/07/20 12:01 DCW [id number]) Manual Therapy Treatment Soft Tissue Mobilization 4 Body Location R Piriformis Mobilization Type Strumming,Sustained Pressure, Trigger Point Release Intensity/Depth Deep Body Position Sidelying 3 Body Location B ITB Mobilization Type Strumming,Sustained Pressure, Trigger Point Release Intensity/Depth Superficial Body Position Hooklying 2 Body Location B Psoas Mobilization Type Strumming,Sustained Pressure Body Position Hooklying 1 Body Location B Adductor Mobilization Type Strumming,Sustained Pressure, Trigger Point Release Intensity/Depth Superficial Body Position Hooklying PT-OP-R Modalities Start: 09/05/19 13:49 Freq: Status: Active Protocol: Document 07/07/20 11:15 DCW (Rec: 07/07/20 12:02 DCW [id number]) Electric Stimulation Electric Stimulation Interferential Current (IFC) Body Location low back Cycle Continuous Patient Position Prone Combined With Heat/Cold Hot Pack PT-OP-T Assessment and Plan Start: 09/05/19 13:49 Freq: Status: Active Protocol: Document 07/07/20 11:15 DCW (Rec: 07/07/20 12:36 DCW [id number]) Physical Therapy Assessment Impairments Impairments Functional Mobility,Pain,ROM, Soft Tissue Mobility,Strength, Tone Goals Seven Impairment Restricted left ankle ROM Counselor Camp Goal (LTG) Pt's ROM to improve from 0?->8 ? Dorsiflexion and 20?->35? Inversion LTG Duration 08/06/20 - Improving Six Impairment Pt exhibits collapsed L arch, navicular 1.4 cm closer to ground in standing Counselor Camp Goal (LTG) L navicular measured at 4 cm from ground in standing LTG Duration Met Five Impairment LEFS score of 27/80 Mcc Goal (LTG) LEFS score of 35/80 LTG Duration 08/06/20 Four Impairment Right hip weakness Counselor Camp Goal (LTG) Patient will exhibit 1/2 grade increase in MMT to right adductors for improvement of functional weight bearing mobility. LTG Duration Met Three Impairment Pt unable to stand longer than 10 minutes without increased symptoms Mcc Goal (LTG) Pt to be able to stand 25 minutes with no increase in symptoms LTG Duration 08/06/20 Two Impairment Pt has difficulty donning and doffing footwear Mcc Goal (LTG) Pt to exhibit moderate adductor tone to allow her to don and doff footwear without assistance LTG Duration Met One Impairment Pt does not have an appropriate home exercise program Short Term Goal (STG) Pt to be independent and compliant with an appropriate home exercise program STG Duration Met Assessment Summary Assessment Pt nearing goals in most areas, likely approaching discharge. Will spend remaining two appointments implementing more comprehensive home exercise program. Physical Therapy Plan Frequency and Duration Frequency of Treatment 1-2x/Week Duration of Treatment 3 weeks Plan of Care Start Date 07/07/20 Plan of Care End Date 07/28/20 Therapeutic Interventions Therapeutic Interventions Home Exercise Program,Joint Mobilizations,Manual Therapy, Patient/Caregiver Education, Self-Care/Home Management,Soft Tissue Mobilization, Therapeutic Exercises Modalities Cold Pack/Ice Massage,Electric Stimulation,Hot Packs Next Visit Focus/Plan Next Note Type Treatment Note Next Visit Plan STM, Flexibility/soft tissue stretching, hip strengthening, ankle ROM, ankle/foot strengthening
--- NOTE | 2020-07-07 12:37 | PT.OPPOC ---
Physical, Occupational & Speech Therapy At [facility] Current Diagnoses Pain in right hip (07/07/20) Stiffness of right hip, not elsewhere classified (07/07/20) Pain in right foot (07/07/20) Pain in left foot (07/07/20) Weakness (07/07/20) Visit Care Team Role Provider Type Marcello Salgado DPM Referring Provider Non-Staff Specialty: Podiatry Address: [address] [place], [address] Email: Wilian Booth MD Attending Provider Physician Primary Care Provider Specialty: Family Practice Address: [address] [place], [address] Email: [email or web address] Plan Of Care PT-OP-T Assessment and Plan Start: 09/05/19 13:49 Freq: Status: Active Protocol: Document 07/07/20 11:15 DCW (Rec: 07/07/20 12:36 DCW [id number]) Physical Therapy Assessment Impairments Impairments Functional Mobility,Pain,ROM, Soft Tissue Mobility,Strength, Tone Goals Seven Impairment Restricted left ankle ROM Fdc Goal (LTG) Pt's ROM to improve from 0?->8 ? Dorsiflexion and 20?->35? Inversion LTG Duration 08/06/20 - Improving Six Impairment Pt exhibits collapsed L arch, navicular 1.4 cm closer to ground in standing Patient Registration Representative Goal (LTG) L navicular measured at 4 cm from ground in standing LTG Duration Met Five Impairment LEFS score of 27/80 Fdc Goal (LTG) LEFS score of 35/80 LTG Duration 08/06/20 Four Impairment Right hip weakness Patient Registration Representative Goal (LTG) Patient will exhibit 1/2 grade increase in MMT to right adductors for improvement of functional weight bearing mobility. LTG Duration Met Three Impairment Pt unable to stand longer than 10 minutes without increased symptoms Patient Registration Representative Goal (LTG) Pt to be able to stand 25 minutes with no increase in symptoms LTG Duration 08/06/20 Two Impairment Pt has difficulty donning and doffing footwear Fdc Goal (LTG) Pt to exhibit moderate adductor tone to allow her to don and doff footwear without assistance LTG Duration Met One Impairment Pt does not have an appropriate home exercise program Short Term Goal (STG) Pt to be independent and compliant with an appropriate home exercise program STG Duration Met Assessment Summary Assessment Pt nearing goals in most areas , likely approaching discharge . Will spend remaining two appointments implementing more comprehensive home exercise program. Physical Therapy Plan Frequency and Duration Frequency of Treatment 1-2x/Week Duration of Treatment 3 weeks Plan of Care Start Date 07/07/20 Plan of Care End Date 07/28/20 Therapeutic Interventions Therapeutic Interventions Home Exercise Program,Joint Mobilizations,Manual Therapy, Patient/Caregiver Education, Self-Care/Home Management,Soft Tissue Mobilization, Therapeutic Exercises Modalities Cold Pack/Ice Massage,Electric Stimulation,Hot Packs Next Visit Focus/Plan Next Note Type Treatment Note Next Visit Plan STM, Flexibility/soft tissue stretching, hip strengthening, ankle ROM, ankle/foot strengthening Plan of Care Dates Plan of Care Start Date 07/07/20 Plan of Care End Date 07/28/20 Electronically Signed by: Dion Riggins, PT 07/07/20 0271 Please Sign and Return: I have reviewed this Plan of Care and certify that the skilled therapy services above are required to meet the patient?s needs. Physician Signature Date Printed Name and Credentials Clinical Instructor Signature Printed Name and Credentials
--- NOTE | 2020-07-09 12:00 | PT.OTN ---
Current Diagnoses Pain in right hip (07/09/20) Stiffness of right hip, not elsewhere classified (07/09/20) Pain in right foot (07/09/20) Pain in left foot (07/09/20) Weakness (07/09/20) Physical Therapy Treatment Note PT-OP-A Visit Information Start: 09/05/19 13:49 Freq: Status: Active Protocol: Document 07/09/20 11:15 DCW (Rec: 07/09/20 12:00 DCW [id number]) Out-Patient Physical Therapy Visit Information Visit Information Visit Type Treatment Note Visit Start Time 11:15 Visit Stop Time 12:10 Total Visit Minutes 55 Visit Number 30 Number of CAMPAIGN MANAGEMENT SENIOR MANAGER Visits 0 Evaluation Information Evaluation Date 09/04/19 PT-OP-B Current Condition Start: 09/05/19 13:49 Freq: Status: Active Protocol: Document 03/23/20 12:05 DCW (Rec: 03/23/20 13:38 DCW [id number]) Current Condition History of Current Condition History of Current Condition Pt is a 59 year old female presenting with a one month history of pain at her proximal medial right hip/ groin. Pt reports she was having slight discomfort in the area for a few weeks, and then slept with a heating pad on the area one night, and woke up in much more pain. Pt reports sh has been diagnosed with severe arthritis and sarcoidosis, which she has recently started medication for. Pt reports she is unable to sit with her legs crossed, and needs help occasionally to don or doff her socks and shoes. Pt also notes that she is unable to stand longer than 10 minutes, but that is not a big priority for me. ADDENDUM 03/23/20: Pt has a new referral for bilateral foot pain, would like this addressed today. Pt reports she has a multi-year history of pain, feels like her left foot is twisted inside my shoe, and feels that her right ankle is constantly swollen. PT-OP-C Subjective Start: 09/05/19 13:49 Freq: Status: Active Protocol: Document 07/09/20 11:15 DCW (Rec: 07/09/20 12:00 DCW [id number]) OP-PT Subjective Patient Comments Patient Comments We're just going to work on the feet today. I got a lot on my mind, and I'm just not up for having my back worked on. PT-OP-F Manual Assessment Start: 09/05/19 13:49 Freq: Status: Active Protocol: Document 07/07/20 11:15 DCW (Rec: 07/07/20 11:44 DCW [id number]) Manual Assessments Soft Tissue Assessment Soft Tissue Mobility Assessment Severe tone and Tenderness to Palpation 4/4: Palpation not allowed along right adductors, worsening from insertion to origin. Moderate tone and Tenderness to Palpation 2/4: Wincing and withdraw along bilateral psoas . Mild complaints of pain and tenderness along B ITB, L Adductors, B Piriformis Other Manual Assessments Other Manual Assessments Collapsed arch on L Ground to navicular bone; L:4. 2 cm, R:4.6 cm PT-OP-J Posture/Palpation/Skin Start: 03/23/20 13:31 Freq: Status: Active Protocol: Document 07/07/20 11:15 DCW (Rec: 07/07/20 11:44 DCW [id number]) Skin Assessment Circumference Measurement 2 Location Right Figure-8 Measurement (Centimeters) 53.1 Comments Left Figure-8: 53.4 1 Location Right transmalleolar Measurement (Centimeters) 26.9 Comments Left transmalleolar: 26.4 PT-OP-K Range of Motion Start: 09/05/19 13:49 Freq: Status: Active Protocol: Document 07/07/20 11:15 DCW (Rec: 07/07/20 11:44 DCW [id number]) Ankle and Foot Goniometric Range of Motion Ankle and Foot Right Active Testing Position Sitting Dorsiflexion with Knee Flexed 8 Plantarflexion 50 Inversion 42 Eversion 20 Left Active Ankle/Foot ROM WFL No Testing Position Sitting Dorsiflexion with Knee Flexed 2 Plantarflexion 50 Inversion 39 Eversion 20 PT-OP-L Special Tests Start: 09/05/19 13:49 Freq: Status: Active Protocol: Document 07/07/20 11:15 DCW (Rec: 07/07/20 11:44 DCW [id number]) Special Tests Lumbar Spine Special Tests Manual Traction Comments R long-axis traction provided substantial relief for pt Hip Special Tests Straight Leg Raise Test Results Negative Piriformis Test Results Negative SANDRA Test Results Negative Scour Test Test Results Negative PT-OP-M Strength Start: 09/05/19 13:49 Freq: Status: Active Protocol: Document 07/07/20 11:15 DCW (Rec: 07/07/20 11:44 DCW [id number]) Hip Strength Hip Manual Muscle Testing Right Flexion (L2) 4- Good- Abduction 4+ Good+ Adduction 4 Good Left Flexion (L2) 4+ Good+ Abduction 4+ Good+ Adduction 4+ Good+ Knee Strength Knee Manual Muscle Testing Left Flexion (S2) 4+ Good+ Extension (L3) 4+ Good+ Right Flexion (S2) 4+ Good+ Extension (L3) 4 Good Ankle/Foot Strength Ankle and Foot Manual Muscle Testing Right Dorsiflexion (L4) 5 Normal Plantarflexion (S1) 4+ Good+ Inversion 4+ Good+ Eversion (S1) 4+ Good+ Left Dorsiflexion (L4) 4+ Good+ Plantarflexion (S1) 4+ Good+ Inversion 4+ Good+ Eversion (S1) 4+ Good+ PT-OP-Q Treatments Start: 09/05/19 13:49 Freq: Status: Active Protocol: Document 07/09/20 11:15 DCW (Rec: 07/09/20 12:00 DCW [id number]) Manual Therapy Treatment Joint Mobilizations 2 Joint B MTP joint mobs Grade III Body Position Sitting 1 Joint B Talofibular joint Direction Inferior Grade III Body Position Sitting PT-OP-R Modalities Start: 09/05/19 13:49 Freq: Status: Active Protocol: Document 07/07/20 11:15 DCW (Rec: 07/07/20 12:02 DCW [id number]) Electric Stimulation Electric Stimulation Interferential Current (IFC) Body Location low back Cycle Continuous Patient Position Prone Combined With Heat/Cold Hot Pack PT-OP-T Assessment and Plan Start: 09/05/19 13:49 Freq: Status: Active Protocol: Document 07/09/20 11:15 DCW (Rec: 07/09/20 12:00 DCW [id number]) Physical Therapy Assessment Impairments Impairments Functional Mobility,Pain,ROM, Soft Tissue Mobility,Strength, Tone Goals Seven Impairment Restricted left ankle ROM Alf Goal (LTG) Pt's ROM to improve from 0?->8 ? Dorsiflexion and 20?->35? Inversion LTG Duration 08/06/20 - Improving Six Impairment Pt exhibits collapsed L arch, navicular 1.4 cm closer to ground in standing Rubber Compounder Supervisor Goal (LTG) L navicular measured at 4 cm from ground in standing LTG Duration Met Five Impairment LEFS score of 27/80 Rubber Compounder Supervisor Goal (LTG) LEFS score of 35/80 LTG Duration 08/06/20 Four Impairment Right hip weakness Alf Goal (LTG) Patient will exhibit 1/2 grade increase in MMT to right adductors for improvement of functional weight bearing mobility. LTG Duration Met Three Impairment Pt unable to stand longer than 10 minutes without increased symptoms Alf Goal (LTG) Pt to be able to stand 25 minutes with no increase in symptoms LTG Duration 08/06/20 Two Impairment Pt has difficulty donning and doffing footwear Rubber Compounder Supervisor Goal (LTG) Pt to exhibit moderate adductor tone to allow her to don and doff footwear without assistance LTG Duration Met One Impairment Pt does not have an appropriate home exercise program Short Term Goal (STG) Pt to be independent and compliant with an appropriate home exercise program STG Duration Met Assessment Summary Assessment Pt requested early release from therapy today, does not seem to be as motivated to have STM performed since she only has one visit left. Overall still doing very well. Physical Therapy Plan Frequency and Duration Frequency of Treatment 1-2x/Week Duration of Treatment 3 weeks Plan of Care Start Date 07/07/20 Plan of Care End Date 07/28/20 Therapeutic Interventions Therapeutic Interventions Home Exercise Program,Joint Mobilizations,Manual Therapy, Patient/Caregiver Education, Self-Care/Home Management,Soft Tissue Mobilization, Therapeutic Exercises Modalities Cold Pack/Ice Massage,Electric Stimulation,Hot Packs Next Visit Focus/Plan Next Note Type Treatment Note Next Visit Plan STM, Flexibility/soft tissue stretching, hip strengthening, ankle ROM, ankle/foot strengthening
--- NOTE | 2020-08-03 09:36 | PT.OPDS ---
Current Diagnoses Pain in right hip (07/09/20) Stiffness of right hip, not elsewhere classified (07/09/20) Pain in right foot (07/09/20) Pain in left foot (07/09/20) Weakness (07/09/20) Visit Care Team Role Provider Type Marcello Salgado DPM Referring Provider Non-Staff Specialty: Podiatry Address: [address] [place], [address] Email: Wilian Booth MD Attending Provider Physician Primary Care Provider Specialty: Family Practice Address: [facility] [place], [address] Email: [email or web address] Visit Number Visit Number 30 Discharge Summary PT-OP-B Current Condition Start: 09/05/19 13:49 Freq: Status: Active Protocol: Document 03/23/20 12:05 DCW (Rec: 03/23/20 13:38 DCW [id number]) Current Condition History of Current Condition History of Current Condition Pt is a 59 year old female presenting with a one month history of pain at her proximal medial right hip/ groin. Pt reports she was having slight discomfort in the area for a few weeks, and then slept with a heating pad on the area one night, and woke up in much more pain. Pt reports sh has been diagnosed with severe arthritis and sarcoidosis, which she has recently started medication for. Pt reports she is unable to sit with her legs crossed, and needs help occasionally to don or doff her socks and shoes. Pt also notes that she is unable to stand longer than 10 minutes, but that is not a big priority for me. ADDENDUM 03/23/20: Pt has a new referral for bilateral foot pain, would like this addressed today. Pt reports she has a multi-year history of pain, feels like her left foot is twisted inside my shoe, and feels that her right ankle is constantly swollen. PT-OP-C Subjective Start: 09/05/19 13:49 Freq: Status: Active Protocol: Document 07/09/20 11:15 DCW (Rec: 07/09/20 12:00 DCW [id number]) OP-PT Subjective Patient Comments Patient Comments We're just going to work on the feet today. I got a lot on my mind, and I'm just not up for having my back worked on. PT-OP-F Manual Assessment Start: 09/05/19 13:49 Freq: Status: Active Protocol: Document 07/07/20 11:15 DCW (Rec: 07/07/20 11:44 DCW [id number]) Manual Assessments Soft Tissue Assessment Soft Tissue Mobility Assessment Severe tone and Tenderness to Palpation 4/4: Palpation not allowed along right adductors, worsening from insertion to origin. Moderate tone and Tenderness to Palpation 2/4: Wincing and withdraw along bilateral psoas . Mild complaints of pain and tenderness along B ITB, L Adductors, B Piriformis Other Manual Assessments Other Manual Assessments Collapsed arch on L Ground to navicular bone; L:4. 2 cm, R:4.6 cm PT-OP-J Posture/Palpation/Skin Start: 03/23/20 13:31 Freq: Status: Active Protocol: Document 07/07/20 11:15 DCW (Rec: 07/07/20 11:44 DCW [id number]) Skin Assessment Circumference Measurement 2 Location Right Figure-8 Measurement (Centimeters) 53.1 Comments Left Figure-8: 53.4 1 Location Right transmalleolar Measurement (Centimeters) 26.9 Comments Left transmalleolar: 26.4 PT-OP-K Range of Motion Start: 09/05/19 13:49 Freq: Status: Active Protocol: Document 07/07/20 11:15 DCW (Rec: 07/07/20 11:44 DCW [id number]) Ankle and Foot Goniometric Range of Motion Ankle and Foot Right Active Testing Position Sitting Dorsiflexion with Knee Flexed 8 Plantarflexion 50 Inversion 42 Eversion 20 Left Active Ankle/Foot ROM WFL No Testing Position Sitting Dorsiflexion with Knee Flexed 2 Plantarflexion 50 Inversion 39 Eversion 20 PT-OP-L Special Tests Start: 09/05/19 13:49 Freq: Status: Active Protocol: Document 07/07/20 11:15 DCW (Rec: 07/07/20 11:44 DCW [id number]) Special Tests Lumbar Spine Special Tests Manual Traction Comments R long-axis traction provided substantial relief for pt Hip Special Tests Straight Leg Raise Test Results Negative Piriformis Test Results Negative SANDRA Test Results Negative Scour Test Test Results Negative PT-OP-M Strength Start: 09/05/19 13:49 Freq: Status: Active Protocol: Document 07/07/20 11:15 DCW (Rec: 07/07/20 11:44 DCW [id number]) Hip Strength Hip Manual Muscle Testing Right Flexion (L2) 4- Good- Abduction 4+ Good+ Adduction 4 Good Left Flexion (L2) 4+ Good+ Abduction 4+ Good+ Adduction 4+ Good+ Knee Strength Knee Manual Muscle Testing Left Flexion (S2) 4+ Good+ Extension (L3) 4+ Good+ Right Flexion (S2) 4+ Good+ Extension (L3) 4 Good Ankle/Foot Strength Ankle and Foot Manual Muscle Testing Right Dorsiflexion (L4) 5 Normal Plantarflexion (S1) 4+ Good+ Inversion 4+ Good+ Eversion (S1) 4+ Good+ Left Dorsiflexion (L4) 4+ Good+ Plantarflexion (S1) 4+ Good+ Inversion 4+ Good+ Eversion (S1) 4+ Good+ PT-OP-T Assessment and Plan Start: 09/05/19 13:49 Freq: Status: Active Protocol: Document 08/03/20 09:35 DCW (Rec: 08/03/20 09:36 DCW [id number]) Physical Therapy Assessment Assessment Summary Assessment Plan was to discharged pt after last scheduled visit. Pt has reached a progress plateau. Pt 's last visit was canceled by the hospital due to absence of therapist. Patient was phoned and agreeable to discharge at this time. Physical Therapy Plan Discharge Physical Therapy Discharge Reasons Plateau in Progress Next Visit Focus/Plan Next Note Type Discharge Summary
== END 2020-08-04 14:10 ==
LOC: PHYS 11:15
PROVIDERS: PCP Family Medicine; Referring Provider Podiatrist; Visit Provider Family Medicine
DX: M25.551 Pain in right hip (principal); M25.651 Stiffness of right hip, not elsewhere classified; R53.1 Weakness; M79.671 Pain in right foot; M79.672 Pain in left foot
CPT/HCPCS: 97014; 97110; 97140; 97161; 97164; G0283

== ENCOUNTER → 2020-07-28 09:41 | Outpatient (CLI) | payer OTHER, MEDICAID, SELFPAY ==
--- NOTE | 2020-07-28 | DI.US.S_ITS ---
PROCEDURE: US AXILLARY ONLY LT COMPARISON: None. INDICATIONS: LEFT AXILLARY LUMP FINDINGS: There is an elongated axillary lymph node in this setting of reported palpable abnormality. The cortical thickness however is 4.5 mm, with overall dimensions 4.1 x 1.2 x 3.2 cm. IMPRESSION: The cortical thickness of the enlarged lymph node is only slightly above the upper limits of normal. Continued clinical follow-up is recommended. If clinical concerns persist or increase biopsy of the cortex of the lymph node could be performed. Dictated by: Bairon Villasenor M.D. on 07/28/2020 at 11:33 Approved by: Bairon Villasenor M.D. on 07/28/2020 at 11:49
--- NOTE | 2020-07-28 09:43 | DI.MG.S_ITS ---
BILATERAL DIGITAL DIAGNOSTIC MAMMOGRAM 3D/2D: 07/28/2020 CLINICAL: Left breast lump. Comparison is made to exams dated: 07/07/2020 mammogram, 11/07/2018 mammogram, and 12/20/2017 mammogram - [facility]. The tissue of both breasts is predominantly fatty. There are several oval lymph nodes with circumscribed margins in the right breast posterior depth superior region seen on the mediolateral oblique view only. These are more prominent and increased in number. There is a stable oval lymph node with uniform cortical thickening in the left breast posterior depth superior region seen on the mediolateral oblique view only. It maintains a fatty hilum. No other significant masses or calcifications are seen in either breast. IMPRESSION: INCOMPLETE: NEEDS ADDITIONAL IMAGING EVALUATION The lymph nodes in the right breast posterior depth superior region seen on the mediolateral oblique view are more numerous than prior studies but appear benign. An ultrasound is recommended for confirmation. Due to lack of order and appointment, this will be scheduled for the patient in the near future. The stable oval lymph node with uniform cortical thickening in the left breast posterior depth superior region seen on the mediolateral oblique view only is probably benign. An ultrasound is recommended for confirmation and was performed following this exam. This exam was interpreted at Station ID: [id number]. NOTE: For mammograms, a report in lay terms will be sent to the patient. Approximately 15% of breast malignancies will not be visualized mammographically. In the management of a palpable breast mass, a negative mammogram must not discourage biopsy of a clinically suspicious lesion. Electronically Signed By: Freda singer/:07/28/2020 11:54:14 copy to: Wilian Booth ACR BI-RADS Category 0: Incomplete [id number]
--- NOTE | 2020-07-28 10:48 | DI.US.S_ITS ---
Patient Name: KRUNAL PIERCE date: 1960 Sex: F Attending Physician: Emmy Indications: Date: 07/28/2020 10:57 At the request of: WILIAN BOOTH Procedure: US axillary only lt ULTRASOUND OF LEFT BREAST: 07/28/2020 CLINICAL: Palpable left axilla lump. This is an addendum to the previously released report. Comparison is made to exams dated: 07/28/2020 mammogram, 07/07/2020 mammogram, 11/07/2018 ultrasound, 11/07/2018 mammogram, 12/20/2017 ultrasound, and 12/20/2017 mammogram - [facility]. Color flow, real-time, and continuous wave Doppler ultrasound of the left breast were performed. There is a benign 4.1 cm x 1.2 cm x 3.2 cm lymph node with uniform cortical thickening in the left axillary tail. This correlates as palpated and with mammography findings. Color flow imaging demonstrates that there is no vascularity present. IMPRESSION: BENIGN There is no sonographic evidence of malignancy. The 4.1 cm x 1.2 cm x 3.2 cm lymph node with uniform cortical thickening is consistent with a benign lymph node and has been stable over multiple prior exams. The patient should return in August 2020 for ultrasound of her right axilla for the palpable lesion there. This has been scheduled for the patient. Return to annual mammogram screening schedule is recommended. Findings and recommendations were conveyed to the patient at time of exam. This exam was interpreted at Station ID: [id number]. Electronically Signed By: Freda singer/:07/28/2020 12:07:42 copy to: Wilian Booth letter sent: Normal Exam Continued Report - Page 2 of 2 Patient Name: KRUNAL PIERCE date: 1960 Sex: F Attending Physician: Emmy Indications: Date: 07/28/2020 10:57 At the request of: WILIAN BOOTH Procedure: US axillary only lt Ultrasound BI-RADS: 2 Benign
== END ==
PROVIDERS: PCP Family Medicine; Referring Provider Family Medicine; Visit Provider Family Medicine
DX: R92.8 Other abnormal and inconclusive findings on diagnostic imaging of breast (principal); N63.32 Unspecified lump in axillary tail of the left breast; N63.31 Unspecified lump in axillary tail of the right breast; R59.0 Localized enlarged lymph nodes
CPT/HCPCS: 76882; 77066; G0279

== ENCOUNTER 2020-08-02 11:24 | Emergency (ER) | payer BC, OTHER, MEDICAID, SELFPAY ==
[2020-08-02 11:40] VITALS: PULSE 85; RESP 18; TEMP 36.7; O2SAT 100; BMI 43.8
--- NOTE | 2020-08-02 12:03 | ED_ITS ---
HPI - Chest Pain General Chief Complaint: Back Pain/Injury Stated Complaint: severe flank pain Time Seen by Provider: 08/02/20 11:25 Source: patient and family Mode of arrival: Ambulatory Limitations: no limitations History of Present Illness HPI narrative: 60-year-old female nonsmoker with extensive medical history including diabetes and fibromyalgia presents with her significant other and a chief complaint of severe, sharp and stabbing superficial pain on her right flank that wraps around her side which has been present for many weeks if not months. She denies any known injury or trauma. She denies any fever or chills. She has had no rash or blisters. She denies any cough, chest pain or shortness of breath. She denies any nausea, vomiting or diarrhea. She has been seen on multiple occasions by multiple specialists and thus far has not achieved much improvement in her symptoms. She is very hesitant to try any medications anion becomes nauseated with mild doses of tramadol. She denies any exposure to persons known to have COVID MD complaint: other Onset (ago): month(s) Duration: constant Pain location: right chest Severity: severe Quality: sharp Pain radiation: back Relieving factors: remaining still Exacerbating factors: palpation and movement Related Data On Oral Contraceptives: No Home Medications Medication Instructions Recorded Confirmed Respironics Dreamstation CPAP #1 ea 01/21/19 04/20/20 mycophenolate mofetil 500 mg tablet 1,000 mg PO BID tab 01/08/20 04/20/20 Previous Rx's Medication Instructions Recorded Lancets units BID #100 09/07/17 folic acid 1 mg PO QDAY #90 tab 10/03/17 Syringes: Ultra Fine Insulin #1 ea 05/20/18 Syringe w/Needle promethazine 12.5 mg tablet 12.5 mg PO TID #30 tab 03/05/19 insulin human U-100 NPH-regulr See Rx Instructions SUBCUT BID #4 06/20/19 70-30 mix 100 unit/mL subcutaneous vial susp fluoxetine 20 mg tablet 20 mg PO DAILY #30 tab 07/24/19 insulin syringe-needle U-100 1 mL See Rx Instructions .ROUTE 08/29/19 31 gauge x 15/64 .COMPLEX #100 each naproxen 500 mg tablet 500 mg PO BID PRN #60 tab 09/12/19 blood sugar diagnostic #200 each 03/22/20 metformin 500 mg 24 hr 2,000 mg PO QPM #360 tab 04/23/20 tablet,extended release lisinopril 20 1 tab PO QDAY #90 tab 07/14/20 mg-hydrochlorothiazide 12.5 mg tablet lidocaine [Lidoderm] 1 patch TOP DAILY #15 each 08/02/20 prednisone 20 mg PO DAILY #5 tab 08/02/20 Allergies Allergy/AdvReac Type Severity Reaction Status Date / Time hazelnut [HAZELNUT] Allergy Intermediate HIVES Verified 04/20/20 15:24 fluconazole [FLUCONAZOLE] Allergy Mild skin Verified 04/20/20 15:24 reaction hydrocodone [HYDROCODONE] Allergy Mild nausea Verified 04/20/20 15:24 latex [LATEX] Allergy Mild unknown Verified 04/20/20 15:24 morphine [MORPHINE] Allergy Mild too Verified 04/20/20 15:24 tired, knocks me out nitroglycerin [NITROGLYCERIN] Allergy Mild unknown Verified 04/20/20 15:24 Penicillins [PENICILLINS] Allergy Mild hives Verified 04/20/20 15:24 prednisone [PREDNISONE] Allergy Mild swelling Verified 04/20/20 15:24 sulfamethoxazole Allergy Mild internal Verified 04/20/20 15:24 [From BACTRIM] hives trimethoprim [From BACTRIM] Allergy Mild internal Verified 04/20/20 15:24 hives iodine [IODINE] Allergy Unknown Verified 04/20/20 15:24 wheat AdvReac Intermediate Gluten Verified 04/20/20 15:24 sensitive cashews Allergy Mild throat Uncoded 04/20/20 15:24 tightened, severe reflux Review of Systems Constitutional Constitutional: Denies chills, Denies fatigue, Denies fever(s), Denies frequent falls, Denies lethargy and Denies weakness Eyes Eyes: Denies change in vision, Denies eye discharge, Denies irritation and Denies loss of vision ENT Ears, Nose, Mouth, and Throat: Denies change in voice, Denies dizziness, Denies neck pain, Denies sore throat and Denies throat swelling Cardiovascular Cardiovascular: Denies chest pain, Denies irregular heart rhythm, Denies lightheadedness, Denies palpitations, Denies dyspnea, Denies dyspnea on exertion and Denies orthopnea Respiratory Respiratory: Denies cough, Denies dyspnea, Denies dyspnea on exertion and Denies wheezing Gastrointestinal Gastrointestinal: Denies abdominal pain, Denies change in bowel habits, Denies diarrhea, Denies nausea and Denies vomiting Genitourinary Genitourinary: Reports flank pain Genitourinary: Reports flank pain Musculoskeletal Musculoskeletal: Denies neck pain and Denies numbness Integumentary/Breasts Skin/Breast: Denies pruritus, Denies erythema, Denies rash and Denies wounds Neurologic Neurologic: Denies behavioral changes, Denies confusion, Denies dizziness, Denies frequent falls, Denies loss of vision, Denies numbness and Denies weakness Psychiatric Psychiatric: Denies anxiety, Denies behavioral changes, Denies confusion, Denies depression, Denies homicidal ideation and Denies suicidal ideation Endocrine Endocrine: Denies fatigue, Denies flushing and Denies palpitations Hematologic/Lymphatic Hematologic/Lymphatic: Denies easy bruising Allergic/Immunologic Allergic/Immunologic: Denies urticaria, Denies throat swelling and Denies wheezing Patient History Medical History Abnormal chest xray (~2002) Abscess of right groin Acne (~2004) Anemia Ankle pain (~2012) Asthma Asthma (~1997) Carpal tunnel syndrome (~1996) Chest pain Controlled type 2 diabetes mellitus (08/02/15) Diabetes mellitus DKA, type 1 Eczema (~1997) Edema Encounter for routine gynecological examination with Papanicolaou smear of cervix Foot pain (~2012) Fractures (~1987) Gastric ulcer Headache Left arm pain Left knee sprain Leg injury (~2014) Lipoma Lower back pain Mastodynia Morbid obesity with body mass index of 40.0-49.9 Obstructive sleep apnea of adult Right hip pain Sarcoidosis (~2004) Shoulder pain (~2001) Sore throat (10/07/15) Upper respiratory infection Uterine cancer Vision disorder Surgical History Anesthesia History of carpal tunnel repair Status post biopsy Status post biopsy Status post colonoscopy Status post hemorrhoidectomy Status post hysterectomy Family History Grandfather Heart disease Hypertension High cholesterol Grandmother Heart disease Hypertension Mother Age: 77 Diabetes mellitus Grandfather Dementia Grandmother Dementia Father No problems noted. Social History marital status: Smoking Status: Former smoker alcohol intake: current (1-3 A WEEK ) substance use type: does not use Smoking Status: Former smoker Exam Narrative Exam Narrative: GENERAL: [60] year old patient appears stated age. Walking with a cane, slowly, in pain with movement HEAD: Atraumatic. Normocephalic. EYES: Pupils equal round and reactive. Extraocular motions intact. No scleral icterus. No injection or drainage. ENT: Nose without bleeding, purulent drainage. Throat without erythema, tonsillar hypertrophy or exudate. Airway patent. NECK: Trachea midline. Non tender CARDIOVASCULAR: Regular rate and rhythm without murmurs, gallops, or rubs. Right chest and flank pain with the slightest touch. No external evidence of i njury. No rash, blisters or erythema. RESPIRATORY: Clear to auscultation. Breath sounds equal bilaterally. No wheezes, rales, or rhonchi. GASTROINTESTINAL: Abdomen soft, non-tender, nondistended. EXTREMITIES: No edema or joint tenderness. BACK: Nontender without deformity or crepitance. No flank tenderness. NEURO: AOx3. SKIN: No rash or erythema of visible areas Initial Vital Signs Initial Vital Signs: Vital Signs Temperature 98.1 F 08/02/20 11:40 Pulse Rate 85 08/02/20 11:40 Respiratory Rate 18 08/02/20 11:40 Pulse Oximetry 100 08/02/20 11:40 Course Orders Ordered: Discontinued Medications Lidocaine (Lidocaine Patch 1 Each Adh..Patch) 1 each TOP NOW ONE Stop: 08/02/20 12:05 Last Admin: 08/02/20 12:24 Dose: 1 each Documented by: BTONER Consultations Consultation #1: Discussion with PCP regarding potential treatment options. We sure the opinion that based on her history, physical that a significant evaluation is likely not going to demonstrate any significant findings. Vital Signs Vital signs: Vital Signs - 8 hr 08/02/20 11:40 08/02/20 12:28 Temperature 98.1 F Pulse Rate 85 Respiratory Rate 18 Blood Pressure 115/63 Pulse Oximetry 100 MDM - Chest Pain Lab Data Labs: Urine Dip Bedside Urine Glucose Negative Bedside Urine Bilirubin - Negative Bedside Urine Ketone - Negative Urine Specific [place] 1.025 Bedside Urine Occult Blood - Negative Bedside Urine pH 5.5 Bedside Urine Protein - Negative Bedside Urine Urobilinogen - Negative Bedside Urine Nitrite - Negative Bedside Urine Leukocytes - Negative Esterase Imaging Data Chest x-ray: Radiologist's Impression: 38 Bautista Ramírez, DO Find Patient Imaging - Daniel Krishnamurthy E 60 F 1960 ACTIVITY DATE EXAM STATUS AUTHOR 08/02/20 12:04 Signed Bairon Villasenor [facility] [place] [id number] ReportSigned Patient: Daniel Krishnamurthy EMR#: [id number]: 1960cct:[id number]/Sex: 60 / FDate of Service: 08/02/20Loc: ED Accession Number: [id number] Procedure: XR chest 1V Ordering Provider: Bautista Ramírez D.O. PROCEDURE: XR CHEST 1V INDICATIONS: severe R sided chest pain TECHNIQUE: One view of the chest was acquired. COMPARISON: [facility], CR, XR CHEST 2V, 03/07/2019, 16:34. [facility], CR, XR CHEST 1V, 08/04/2018, 20:00. FINDINGS: Surgical changes and devices: None. Lungs and pleura: Lungs are mildly edematous. No pleural effusions or pneumothorax. Mediastinum: Mediastinal contours appear normal. Heart size is at the upper limits of normal. Bones and chest wall: No suspicious bony lesions. Overlying soft tissues appear unremarkable. IMPRESSION: Mild pulmonary edema pattern. Heart size at upper limits of normal. Mild acute CHF may be present. No pneumothorax or definite pneumonia found. Dictated by: Bairon Villasenor M.D. on 08/02/2020 at 12:46 Approved by: Bairon Villasenor M.D. on 08/02/2020 at 13:00 [facility] Narrative Medical decision making narrative: Multiple causes of chest pain considered including MT, PE, pneumothorax, pneumonia, aortic dissection, and pleurisy. Patient reports no radiation, no diaphoresis, no provocation with exertion, and no vomiting. Also consider urinary symptoms as the cause such as UTI, pyelonephritis, kidney stone, renal colic or other. This is thought to be unlikely given the very superficial reproducible pain to touch Patient's symptoms improved over duration of stay with above-stated therapies. Findings and discharge diagnosis discussed with patient/family followed by verbalization of understanding Return precautions discussed with patient/family whom verbalize understanding. Discharge Plan Departure Patient Disposition: Home Clinical Impression: Chronic flank pain Instructions: DI for Flank Pain Activity Restrictions/Additional Instructions: *You have been diagnosed with [acute right flank pain] *What to do: *Take medications as directed *Follow up with your primary care provider in 2-3 days, call for an appointment. Let them know you were seen in the Emergency Department and that we ask that you be seen in follow up *Return to ER if you should have any new, worsening or concerning symptoms Prescriptions: New prednisone 20 mg tablet 20 mg PO DAILY Qty: 5 RF: 0 lidocaine [Lidoderm] 5 % adhesive patch,medicated 1 patch TOP DAILY Qty: 15 RF: 0 No Action mycophenolate mofetil [CellCept] 500 mg tablet 1,000 mg PO BID RF: 0 Lancets BID Qty: 100 RF: 0 folic acid 1 MG tablet 1 mg PO QDAY Qty: 90 RF: 1 (DME) Syringes: Ultra Fine Insulin Syringe w/Needle 0 .Route .MEDSUPPLY Qty: 1 RF: 5 Humulin 70/30 U-100 Insulin 100 unit/mL (70-30) suspension See Rx Instructions SUBCUT BID Qty: 4 RF: 3 fluoxetine 20 mg tablet 20 mg PO DAILY Qty: 30 RF: 3 insulin syringe-needle U-100 [BD Veo Insulin Syringe UF] 1 mL 31 gauge x 15/64 syringe See Rx Instructions .ROUTE .COMPLEX Qty: 100 RF: 12 naproxen 500 mg tablet 500 mg PO BID PRN (Reason: pain) Qty: 60 RF: 1 (DME) blood sugar diagnostic [OneTouch Ultra Blue Test Strip] Strip See Dose Instructions .ROUTE .MEDSUPPLY Qty: 200 RF: 3 metformin 500 mg tablet,ER maci.retention 24 hr 2,000 mg PO QPM Qty: 360 RF: 3 lisinopril-hydrochlorothiazide 20-12.5 mg tablet 1 tab PO QDAY Qty: 90 RF: 3 promethazine 12.5 mg tablet 12.5 mg PO TID Qty: 30 RF: 1 (DME) Respironics Dreamstation CPAP Qty: 1 RF: 0 Referrals: Wilian Booth MD [Primary Care Provider] -
[2020-08-02] MEDS: LIDOCAINE PATCH 1 EACH ADH..PATCH TOP (12:24)
[2020-08-02 12:28] VITALS: BP 115/63
[2020-08-02 13:19] VITALS: BP 128/71; PULSE 87; RESP 16; O2SAT 99
== END 2020-08-02 13:19 | disposition home or self-care (01) ==
PROVIDERS: Emergency Provider Emergency Medicine; PCP Family Medicine
DX: R10.9 Unspecified abdominal pain (principal); R07.9 Chest pain, unspecified; E11.9 Type 2 diabetes mellitus without complications; M79.7 Fibromyalgia
CPT/HCPCS: 71045; 81003; 99283

== ENCOUNTER 2020-08-05 16:11 | Emergency (ER) | payer BC, OTHER, SELFPAY ==
[2020-08-05 17:04] VITALS: BP 152/74; PULSE 110; RESP 18; TEMP 37.1; O2SAT 99
[2020-08-05 18:05] LABS: Add Manual Diff / Slide Review NO; Basophils Absolute Auto 100 /uL (0-100); Eosinophils Absolute Auto 300 /uL (0-450); Eosinophils Percent Auto 2.3 % (2-4); Hematocrit 37.1 % (36-46); Hemoglobin 11.5 g/dL (12.0-16.0); Lymphocytes Absolute Auto 2500 /uL (1100-4500); Lymphocytes Percent Auto 20.4 % (25-40); Mean Corpuscular Hemoglobin 24.2 PG (26-34); Mean Corpuscular Volume 78.1 fL (80-100); Monocytes Absolute Auto 700 /uL (0-900); Monocytes Percent Auto 5.6 % (3-14); Neutrophils Absolute Auto 8700 /uL (1500-7000); Neutrophils Percent Auto 70.7 % (50-75); Platelet Count 222 X10^3/uL (150-400); Red Blood Cell Count 4.75 X10^6/uL (4.0-5.2); Red Cell Distribution Width 16.4 % (11.6-14.8); White Blood Cell Count 12.2 X10^3/uL (4.5-11.0)
[2020-08-05 18:17] LABS: Alanine Aminotransferase 29 IU/L (<35); Albumin 4.1 g/dL (3.5-5.0); Alkaline Phosphatase 120 U/L (38-126); Aspartate Aminotransferase 29 IU/L (14-36); BUN Creatinine Ratio 17.4 (6-22); Bilirubin Total 0.2 mg/dL (0.2-1.3); Blood Urea Nitrogen 16 mg/dL (7-17); Calcium 9.5 mg/dL (8.4-10.2); Carbon Dioxide 29 mmol/L (22-32); Chloride 101 mmol/L (98-107); Estimated Glomerular Filt Rate > 60.0 mL/min (>60); Globulin 4.2 g/dL (1.7-4.1); Glucose 293 mg/dL (70-100); HEMOLYSIS < 15 (0-50); Lipase 145 U/L (23-300); Potassium 4.1 mmol/L (3.4-5.1); Sodium 137 mmol/L (137-145); Total Protein 8.3 g/dL (6.3-8.2)
[2020-08-05 18:33] LABS: INR 0.9 (0.9-1.3); Prothrombin Time 10.4 SECONDS (10.1-12.7)
[2020-08-05 18:35] LABS: PTT Partial Thromboplastin Tim 30 SECONDS (26.4-36.2)
--- NOTE | 2020-08-05 19:02 | ED.ABDPAIN ---
HPI - Abdominal Pain General Chief Complaint: Abdominal Pain Stated Complaint: right side flank pain Time Seen by Provider: 08/05/20 19:00 Source: patient Mode of arrival: Wheelchair Limitations: no limitations History of Present Illness HPI narrative: This is a 60-year-old female comes to the emergency department with acute on chronic right flank pain radiating to her right abdomen. Patient states that it has been intermittent. It is worsened recently. She states it feels like something is full and then bursts. She states that she had fevers in the past but nothing recently. No nausea, no vomiting. She has been given a lidocaine patch which was somewhat helpful. She has also been taking Tylenol intermittently. She has noted that her stools have been softer and looser. No black or bloody stools. No urinary, frequency, hematuria or dysuria recently but she has had hematuria in the past. Patient is found that movement and activity have been exacerbating her symptoms. She does have a history of sciatica as well and states that that had flared significantly until recently. Patient is currently treated with Humira by her powder core tester, she states that there has been discussion about whether she truly has sarcoidosis and she is concerned about lupus. She does have a history of diabetes. Related Data Home Medications Medication Instructions Recorded Confirmed Respironics Dreamstation CPAP #1 ea 01/21/19 04/20/20 mycophenolate mofetil 500 mg tablet 1,000 mg PO BID tab 01/08/20 04/20/20 Previous Rx's Medication Instructions Recorded Lancets units BID #100 09/07/17 folic acid 1 mg PO QDAY #90 tab 10/03/17 Syringes: Ultra Fine Insulin #1 ea 05/20/18 Syringe w/Needle promethazine 12.5 mg tablet 12.5 mg PO TID #30 tab 03/05/19 insulin human U-100 NPH-regulr See Rx Instructions SUBCUT BID #4 06/20/19 70-30 mix 100 unit/mL subcutaneous vial susp fluoxetine 20 mg tablet 20 mg PO DAILY #30 tab 07/24/19 insulin syringe-needle U-100 1 mL See Rx Instructions .ROUTE 08/29/19 31 gauge x 15/64 .COMPLEX #100 each naproxen 500 mg tablet 500 mg PO BID PRN #60 tab 09/12/19 blood sugar diagnostic #200 each 03/22/20 metformin 500 mg 24 hr 2,000 mg PO QPM #360 tab 04/23/20 tablet,extended release lisinopril 20 1 tab PO QDAY #90 tab 07/14/20 mg-hydrochlorothiazide 12.5 mg tablet lidocaine [Lidoderm] 1 patch TOP DAILY #15 each 08/02/20 prednisone 20 mg PO DAILY #5 tab 08/02/20 diclofenac sodium [Voltaren] 2 g TOPICAL QID PRN #100 g 08/05/20 Allergies Allergy/AdvReac Type Severity Reaction Status Date / Time hazelnut [HAZELNUT] Allergy Intermediate HIVES Verified 08/05/20 16:54 fluconazole [FLUCONAZOLE] Allergy Mild skin Verified 08/05/20 16:54 reaction hydrocodone [HYDROCODONE] Allergy Mild nausea Verified 08/05/20 16:54 latex [LATEX] Allergy Mild unknown Verified 08/05/20 16:54 morphine [MORPHINE] Allergy Mild too Verified 08/05/20 16:54 tired, knocks me out nitroglycerin [NITROGLYCERIN] Allergy Mild unknown Verified 08/05/20 16:54 Penicillins [PENICILLINS] Allergy Mild hives Verified 08/05/20 16:54 prednisone [PREDNISONE] Allergy Mild swelling Verified 08/05/20 16:54 sulfamethoxazole Allergy Mild internal Verified 08/05/20 16:54 [From BACTRIM] hives trimethoprim [From BACTRIM] Allergy Mild internal Verified 08/05/20 16:54 hives iodine [IODINE] Allergy Unknown Verified 08/05/20 16:54 wheat AdvReac Intermediate Gluten Verified 08/05/20 16:54 sensitive cashews Allergy Mild throat Uncoded 08/05/20 16:54 tightened, severe reflux Review of Systems Review of Systems ROS Unobtainable: All systems reviewed & are unremarkable except as noted in HPI and below Patient History Medical History Abnormal chest xray (~2002) Abscess of right groin Acne (~2004) Anemia Ankle pain (~2012) Asthma Asthma (~1997) Carpal tunnel syndrome (~1996) Chest pain Controlled type 2 diabetes mellitus (08/02/15) Diabetes mellitus DKA, type 1 Eczema (~1997) Edema Encounter for routine gynecological examination with Papanicolaou smear of cervix Foot pain (~2012) Fractures (~1987) Gastric ulcer Headache Left arm pain Left knee sprain Leg injury (~2014) Lipoma Lower back pain Mastodynia Morbid obesity with body mass index of 40.0-49.9 Obstructive sleep apnea of adult Right hip pain Sarcoidosis (~2004) Shoulder pain (~2001) Sore throat (10/07/15) Upper respiratory infection Uterine cancer Vision disorder Surgical History Anesthesia History of carpal tunnel repair Status post biopsy Status post biopsy Status post colonoscopy Status post hemorrhoidectomy Status post hysterectomy Family History Grandfather Heart disease Hypertension High cholesterol Grandmother Heart disease Hypertension Mother Age: 77 Diabetes mellitus Grandfather Dementia Grandmother Dementia Father No problems noted. Social History marital status: Smoking Status: Never smoker alcohol intake: current (1-3 A WEEK ) substance use type: does not use Smoking Status: Never smoker alcohol intake frequency: a few times a month Substance Use Type: does not use Exam Narrative Exam Narrative: GENERAL: Alert and oriented x three, well-nourished, well-appearing female in moderate distress. HEENT: Head normocephalic, atraumatic, EOMI, pupils reactive, face symmetric, moist mucous membranes NECK: Supple, full range of motion CARDIOVASCULAR: Regular rate and rhythm without murmurs, rubs or gallops. RESPIRATORY: Breath sounds equal bilaterally, no wheezes rales or rhonchi. ABDOMEN: Soft, positive for right lower quadrant tenderness. Normoactive bowel sounds all 4 quadrants. No guarding or rebound, rigidity, no mass appreciated. No pulsatile bruit. : Left CVA tenderness BACK: No cervical, thoracic or lumbar vertebral point tenderness. Patient has decreased range of motion and appears uncomfortable with rotation/sidebending. EXTREMITIES: Normal range of motion, no clubbing or edema. Neurovascularly intact NEUROLOGICAL: Cranial nerves II through XII grossly intact. Moving all extremities SKIN: Warm, dry, no petechiae, no rashes or lesions. Initial Vital Signs Initial Vital Signs: Vital Signs Temperature 98.8 F 08/05/20 17:04 Pulse Rate 110 H 08/05/20 17:04 Respiratory Rate 18 08/05/20 17:04 Blood Pressure 152/74 H 08/05/20 17:04 Pulse Oximetry 99 08/05/20 17:04 Course Orders Ordered: Discontinued Medications Acetaminophen (Acetaminophen 325 Mg Tablet) 975 mg PO NOW ONE Stop: 08/05/20 19:25 Last Admin: 08/05/20 19:43 Dose: 975 mg Documented by: DEEPIKA Diphenhydramine HCl (Diphenhydramine 50 Mg/Ml Vial) 50 mg IV NOW ONE Stop: 08/05/20 19:37 Last Admin: 08/05/20 19:43 Dose: 50 mg Documented by: DEEPIKA Sodium Chloride (Normal Saline 0.9%) 1,000 mls @ 150 mls/hr IV CONT ADRIANO Reevaluation(s) Reevaluation #1: Patient was re-evaluated she is feeling much more comfortable currently. She is resting in the bed we discussed today's findings. She does find the Lidoderm patches and Tylenol and plan to continue these. We did discuss trying Voltaren topically to see if this might be helpful as well. We did review patients labs, her CT findings today and discussed this may be more related to back or autoimmune issues. She has found Humira helpful with her arthiritis in her hands but has not appreciated any changes with the pain in her side. She does have hepatic steatosis but this seems a less likely cause of her pain. She is tender on exam but no visual changes or skin changes appreciated. Time: 20:57 Vital Signs Vital signs: Vital Signs - 8 hr 08/05/20 17:04 08/05/20 19:43 Temperature 98.8 F Pulse Rate 110 H 94 H Respiratory Rate 18 20 Blood Pressure 152/74 H 140/83 Pulse Oximetry 99 99 MDM - Abdominal Pain Lab Data Attestation: I reviewed the patient's lab results. Result diagrams: 08/05/20 17:55 08/05/20 17:55 Labs: Lab Results 08/05/20 08/05/20 08/05/20 Range/Units 17:55 17:55 17:55 WBC 12.2 H (4.5-11.0) X10^3/uL RBC 4.75 (4.0-5.2) X10^6/uL Hgb 11.5 L (12.0-16.0) g/dL Hct 37.1 (36-46) % MCV 78.1 L (80-100) fL MCH 24.2 L (26-34) PG MCHC 31.0 (30-36) % RDW 16.4 H (11.6-14.8) % Plt Count 222 (150-400) X10^3/uL Neut % (Auto) 70.7 (50-75) % Lymph % (Auto) 20.4 L (25-40) % [place] % (Auto) 5.6 (3-14) % Eos % (Auto) 2.3 (2-4) % Baso % (Auto) 1.0 (0-2) % Neut # (Auto) 8700 H (4699-5979) /uL Lymph # (Auto) 2500 (4580-0593) /uL [place] # (Auto) 700 (0-900) /uL Eos # (Auto) 300 (0-450) /uL Baso # (Auto) 100 (0-100) /uL PT 10.4 (10.1-12.7) SECONDS INR 0.9 (0.9-1.3) APTT 30 (26.4-36.2) SECONDS Sodium 137 (137-145) mmol/L Potassium 4.1 (3.4-5.1) mmol/L Chloride 101 (98-107) mmol/L Carbon Dioxide 29 (22-32) mmol/L BUN 16 (7-17) mg/dL Creatinine 0.92 (0.52-1.04) mg/dL Estimated GFR > 60.0 (>60) mL/min BUN/Creatinine Ratio 17.4 (6-22) Glucose 293 H (70-100) mg/dL Calcium 9.5 (8.4-10.2) mg/dL Total Bilirubin 0.2 (0.2-1.3) mg/dL AST 29 (14-36) IU/L ALT 29 (<35) IU/L Alkaline Phosphatase 120 (38-126) U/L Total Protein 8.3 H (6.3-8.2) g/dL Albumin 4.1 (3.5-5.0) g/dL Globulin 4.2 H (1.7-4.1) g/dL Albumin/Globulin Ratio 1.0 (1.0-2.8) Lipase 145 (23-300) U/L Point of care testing: Urine Dip Bedside Urine Glucose 100 mg/dl Bedside Urine Bilirubin - Negative Bedside Urine Ketone - Negative Urine Specific [place] 1.025 Bedside Urine Occult Blood - Negative Bedside Urine pH 6.0 Bedside Urine Protein - Negative Bedside Urine Urobilinogen - Negative Bedside Urine Nitrite - Negative Bedside Urine Leukocytes - Negative Esterase Imaging Data CT scan - abdomen/pelvis: Radiologist's Impression: [address] [id number] Scan ReportSigned Patient: Daniel Krishnamurthy EMR#: [id number]: 1960cct:[id number]/Sex: 60 / FDate of Service: 08/05/20Loc: EDAccession Number: [id number] Procedure: CT abdomen pelvis w con Ordering Provider: Teresa Pantoja D.O. PROCEDURE: CT ABDOMEN PELVIS W CON INDICATIONS: right flank and lower abdominal pain TECHNIQUE: After the administration of intravenous contrast, 5 mm thick sections acquired from the diaphragm to the symphysis. 5 mm coronal and sagittal reformats were acquired. For radiation dose reduction, the following was used: automated exposure control, adjustment of mA and/or kV according to patient size. COMPARISON: [facility], CT, CT KUB, 03/05/2020, 19:29. [facility], CT, CT ABDOMEN PELVIS W CON, 08/04/2018, 18:15. FINDINGS: Image quality: Excellent. ABDOMEN: Lung bases: Bibasilar scattered atelectasis is seen. Heart size is normal. Solid organs: Liver is normal in size and enhancement. Hepatic steatosis is noted. Gallbladder is within normal limits. Biliary system is non dilated. Pancreas enhances normally. Spleen is normal in size and enhancement. No adrenal nodules. Kidneys demonstrate normal size and enhancement, without hydronephrosis. Peritoneum and bowel: Bowel loops demonstrate normal wall thickness and caliber. No free fluid or air. Appendix is not definitively identified. No secondary inflammatory changes are seen in right lower quadrant abdomen. Sigmoid diverticulosis is again seen, no CT evidence of acute diverticulitis. Nodes and vessels: No retroperitoneal or mesenteric adenopathy by size criteria. Aorta and inferior vena cava are normal in size. Miscellaneous: No ventral hernias. PELVIS: Genitourinary: Bladder wall thickness is normal. Miscellaneous: No inguinal hernias or adenopathy. Patient is status post hysterectomy. Bones: No suspicious bony lesions. No vertebral body compression fractures. IMPRESSION: 1. No renal stone or hydronephrosis. 2. Appendix is not definitively seen. No secondary CT signs of acute appendicitis. No bowel obstruction. No free fluid or free air. Sigmoid diverticulosis without evidence of acute diverticulitis. 3. Hepatic steatosis. 4. Bibasilar scattered scarring/atelectasis not significantly changed from prior studies. Dictated by: Irvin Roberts M.D. on 08/05/2020 at 20:09 Approved by: Irvin Roberts M.D. on 08/05/2020 at 20:12 Discharge Plan Departure Patient Disposition: Home Clinical Impression: Flank pain, Hepatic steatosis Activity Restrictions/Additional Instructions: Follow up with your physician at your scheduled appointment. Your imaging does continue to show hepatic steatosis. You may continue your home medications as prescribed. You may continue lidoderm patches if they are helpful. You may continue tylenol up to 1000 mg every 8 hours as needed for pain. If these options are not helpful you can try Voltaren or an NSAID cream applied to the directed area. Prescription to [facility]. Return to the ER for fevers, lightheadedness or passing out, severe rapidly worsening pain, persistent vomiting, black or bloody stools difficulty with urination or other new or concerning symptoms. Prescriptions: New diclofenac sodium [Voltaren] 1 % gel 2 g topical QID PRN (Reason: pain) Qty: 100 RF: 0 No Action mycophenolate mofetil [CellCept] 500 mg tablet 1,000 mg PO BID RF: 0 Lancets BID Qty: 100 RF: 0 folic acid 1 MG tablet 1 mg PO QDAY Qty: 90 RF: 1 (DME) Syringes: Ultra Fine Insulin Syringe w/Needle 0 .Route .MEDSUPPLY Qty: 1 RF: 5 Humulin 70/30 U-100 Insulin 100 unit/mL (70-30) suspension See Rx Instructions SUBCUT BID Qty: 4 RF: 3 fluoxetine 20 mg tablet 20 mg PO DAILY Qty: 30 RF: 3 insulin syringe-needle U-100 [BD Veo Insulin Syringe UF] 1 mL 31 gauge x 15/64 syringe See Rx Instructions .ROUTE .COMPLEX Qty: 100 RF: 12 naproxen 500 mg tablet 500 mg PO BID PRN (Reason: pain) Qty: 60 RF: 1 (DME) blood sugar diagnostic [OneTouch Ultra Blue Test Strip] Strip See Dose Instructions .ROUTE .MEDSUPPLY Qty: 200 RF: 3 metformin 500 mg tablet,ER maci.retention 24 hr 2,000 mg PO QPM Qty: 360 RF: 3 lisinopril-hydrochlorothiazide 20-12.5 mg tablet 1 tab PO QDAY Qty: 90 RF: 3 promethazine 12.5 mg tablet 12.5 mg PO TID Qty: 30 RF: 1 prednisone 20 mg tablet 20 mg PO DAILY Qty: 5 RF: 0 lidocaine [Lidoderm] 5 % adhesive patch,medicated 1 patch TOP DAILY Qty: 15 RF: 0 (DME) Respironics Dreamstation CPAP Qty: 1 RF: 0 Referrals: Wilian Booth MD [Primary Care Provider] -
--- NOTE | 2020-08-05 19:24 | DI.CT.S_ITS ---
PROCEDURE: CT ABDOMEN PELVIS W CON INDICATIONS: right flank and lower abdominal pain TECHNIQUE: After the administration of intravenous contrast, 5 mm thick sections acquired from the diaphragm to the symphysis. 5 mm coronal and sagittal reformats were acquired. For radiation dose reduction, the following was used: automated exposure control, adjustment of mA and/or kV according to patient size. COMPARISON: [facility], CT, CT KUB, 03/05/2020, 19:29. [facility], CT, CT ABDOMEN PELVIS W CON, 08/04/2018, 18:15. FINDINGS: Image quality: Excellent. ABDOMEN: Lung bases: Bibasilar scattered atelectasis is seen. Heart size is normal. Solid organs: Liver is normal in size and enhancement. Hepatic steatosis is noted. Gallbladder is within normal limits. Biliary system is non dilated. Pancreas enhances normally. Spleen is normal in size and enhancement. No adrenal nodules. Kidneys demonstrate normal size and enhancement, without hydronephrosis. Peritoneum and bowel: Bowel loops demonstrate normal wall thickness and caliber. No free fluid or air. Appendix is not definitively identified. No secondary inflammatory changes are seen in right lower quadrant abdomen. Sigmoid diverticulosis is again seen, no CT evidence of acute diverticulitis. Nodes and vessels: No retroperitoneal or mesenteric adenopathy by size criteria. Aorta and inferior vena cava are normal in size. Miscellaneous: No ventral hernias. PELVIS: Genitourinary: Bladder wall thickness is normal. Miscellaneous: No inguinal hernias or adenopathy. Patient is status post hysterectomy. Bones: No suspicious bony lesions. No vertebral body compression fractures. IMPRESSION: 1. No renal stone or hydronephrosis. 2. Appendix is not definitively seen. No secondary CT signs of acute appendicitis. No bowel obstruction. No free fluid or free air. Sigmoid diverticulosis without evidence of acute diverticulitis. 3. Hepatic steatosis. 4. Bibasilar scattered scarring/atelectasis not significantly changed from prior studies. Dictated by: Irvin Roberts M.D. on 08/05/2020 at 20:09 Approved by: Irvin Roberts M.D. on 08/05/2020 at 20:12
[2020-08-05 19:43] VITALS: BP 140/83; PULSE 94; RESP 20; O2SAT 99
[2020-08-05] MEDS: diphenhydrAMINE 50 MG/ML VIAL IV (19:43)
[2020-08-05] MEDS: ACETAMINOPHEN 325 MG TABLET 975 MG PO (19:43)
[2020-08-05 21:25] VITALS: BP 130/68; PULSE 82; RESP 16; O2SAT 99
== END 2020-08-05 22:09 | disposition home or self-care (01) ==
PROVIDERS: Emergency Medicine; Emergency Provider Emergency Medicine; PCP Family Medicine
DX: R10.9 Unspecified abdominal pain (principal); K76.0 Fatty (change of) liver, not elsewhere classified; R50.9 Fever, unspecified; R31.9 Hematuria, unspecified; E66.01 Morbid (severe) obesity due to excess calories
CPT/HCPCS: 36415; 74177; 80053; 81003; 83690; 85025; 85610; 85730; 96374; 99281; 99284; J1200

== ENCOUNTER → 2020-08-09 09:27 | Outpatient (CLI) | payer OTHER, MEDICAID, SELFPAY ==
--- NOTE | 2020-08-09 09:28 | DI.US.S_ITS ---
ULTRASOUND OF RIGHT BREAST AND AXILLA: 08/09/2020 CLINICAL: Patient returns today to evaluate focal asymmetries in the right breast. Comparison is made to exams dated: 07/28/2020 mammogram, 11/07/2018 ultrasound, and 11/07/2018 mammogram - [facility]. Color flow and real-time ultrasound of the right breast axilla were performed. [place] scale images of the real-time examination were reviewed. No significant abnormalities were seen sonographically in the right axilla. Normal lymph nodes are present. IMPRESSION: NEGATIVE Lymph nodes in the axilla appear benign. There is no sonographic evidence of malignancy. Return to annual mammogram screening schedule is recommended. Future imaging is recommended as follows: 07/29/2021 screening mammogram. Findings and recommendations were conveyed to the patient at time of exam. This exam was interpreted at Station ID: [id number]. Electronically Signed By: Freda singer/:08/09/2020 09:55:00 copy to: Wilian Booth letter sent: Normal Exam Ultrasound BI-RADS: 1 Negative
== END ==
PROVIDERS: PCP Family Medicine; Referring Provider Family Medicine; Visit Provider Family Medicine
DX: R92.8 Other abnormal and inconclusive findings on diagnostic imaging of breast (principal)
CPT/HCPCS: 76642

== ENCOUNTER → 2020-12-22 12:16 | Outpatient (CLI) | payer OTHER, MEDICAID, SELFPAY ==
[2020-12-22 14:07] LABS: Hemoglobin A1C% w Est Avg Glu 9.4 % (4.0-6.0)
[2020-12-23 19:36] LABS: Albumin 3.5 g/dL (2.9-4.4); Alpha-1-Globulin 0.3 g/dL (0.0-0.4); Gamma Globulin 2.1 g/dL (0.4-1.8); Globulin Total 4.5 g/dL (2.2-3.9)
[2020-12-24 12:03] LABS: Alpha-1 Globulin, Ur 2.6 % (.); Beta Globulin, Ur 17.3 % (.); Gamma Globulin, Ur 30.4 % (.); M-Spike % Not Observed % (Not Observed); Urine Total Protein 30.7 mg/dL (Not Estab.)
== END ==
PROVIDERS: PCP Family Medicine; Referring Provider Family Medicine; Visit Provider Family Medicine
DX: E85.9 Amyloidosis, unspecified (principal); E11.40 Type 2 diabetes mellitus with diabetic neuropathy, unspecified; E11.42 Type 2 diabetes mellitus with diabetic polyneuropathy; E11.65 Type 2 diabetes mellitus with hyperglycemia
CPT/HCPCS: 36415; 83036; 84155; 84156; 84165; 84166

== ENCOUNTER 2021-02-19 12:53 | Emergency (ER) | payer BC, OTHER, MEDICAID, SELFPAY ==
[2021-02-19 12:59] VITALS: BP 151/84; PULSE 99; RESP 18; TEMP 37.2; O2SAT 99; BMI 41.3
--- NOTE | 2021-02-19 13:45 | ED.EXTPRO ---
HPI - Extremity Problem General Chief complaint: Extremity Problem,Nontraumatic Stated complaint: possible blood clot. post ER visit in [place] Time Seen by Provider: 02/19/21 13:45 Source: patient Mode of arrival: Ambulatory Limitations: no limitations History of Present Illness HPI Narrative: 60-year-old female who several weeks ago flew to [place] in afterwards developed pain in her left leg. Per her report she was evaluated and was told that she did not have a blood clot and that was a muscle strain. Her symptoms have continued so she returns the emergency department today seeking a re-evaluation. No specific trauma. She states the pain goes from the inside of her upper leg down across her knee to the outside of her leg to her foot. She has no back pain. She states that it does hurt for her to stand on her left leg. Has to use a cane. She states that it feels like her knee is swollen. Related Data Home Medications Medication Instructions Recorded Confirmed Respironics Dreamstation CPAP #1 ea 01/21/19 12/21/20 mycophenolate mofetil 500 mg 1,000 mg PO BID tab 01/08/20 12/21/20 tablet (CellCept) Previous Rx's Medication Instructions Recorded Lancets units BID #100 09/07/17 folic acid 1 mg tablet 1 mg PO QDAY #90 tab 10/03/17 Syringes: Ultra Fine Insulin #1 ea 05/20/18 Syringe w/Needle naproxen 500 mg tablet 500 mg PO BID PRN #60 tab 09/12/19 metformin 500 mg 24 hr 2,000 mg PO QPM #360 tab 04/23/20 tablet,extended release lisinopril 20 1 tab PO QDAY #90 tab 07/14/20 mg-hydrochlorothiazide 12.5 mg tablet insulin human U-100 NPH-regulr See Rx Instructions SUBCUT BID #4 08/10/20 70-30 mix 100 unit/mL subcutaneous vial susp (Humulin 70/30 U-100 Insulin) insulin syringe-needle U-100 1 mL See Rx Instructions .ROUTE 10/29/20 31 gauge x 15/64 (BD Veo Insulin .COMPLEX #100 each Syringe Ultra-Fine) clobetasol 0.05 % topical ointment 1 applic TOPICAL QAM AND QPM #15 g 11/15/20 blood sugar diagnostic (OneTouch #200 each 12/07/20 Ultra Blue Test Strip) Allergies Allergy/AdvReac Type Severity Reaction Status Date / Time hazelnut [HAZELNUT] Allergy Intermediate HIVES Verified 12/21/20 10:41 fluconazole [FLUCONAZOLE] Allergy Mild skin Verified 12/21/20 10:41 reaction hydrocodone [HYDROCODONE] Allergy Mild nausea Verified 12/21/20 10:41 latex [LATEX] Allergy Mild unknown Verified 12/21/20 10:41 morphine [MORPHINE] Allergy Mild too Verified 12/21/20 10:41 tired, knocks me out nitroglycerin [NITROGLYCERIN] Allergy Mild unknown Verified 12/21/20 10:41 Penicillins [PENICILLINS] Allergy Mild hives Verified 12/21/20 10:41 prednisone [PREDNISONE] Allergy Mild swelling Verified 12/21/20 10:41 sulfamethoxazole Allergy Mild internal Verified 12/21/20 10:41 [From BACTRIM] hives trimethoprim [From BACTRIM] Allergy Mild internal Verified 12/21/20 10:41 hives iodine [IODINE] Allergy Unknown Verified 12/21/20 10:41 wheat AdvReac Intermediate Gluten Verified 12/21/20 10:41 sensitive cashews Allergy Mild throat Uncoded 12/21/20 10:41 tightened, severe reflux Review of Systems Constitutional Constitutional: Denies fever(s) Gastrointestinal Gastrointestinal: Denies abdominal pain Musculoskeletal Musculoskeletal: Reports as per HPI Integumentary/Breasts Skin/Breast: Denies rash Neurologic Neurologic: Reports as per HPI Hematologic/Lymphatic On Anticoagulants: No Patient History Medical History Abnormal chest xray (~2002) Abscess of right groin Acne (~2004) Anemia Ankle pain (~2012) Asthma Asthma (~1997) Behaviorally induced insufficient sleep syndrome Carpal tunnel syndrome (~1996) Chest pain Controlled type 2 diabetes mellitus (08/02/15) Diabetes mellitus DKA, type 1 Eczema (~1997) Edema Encounter for routine gynecological examination with Papanicolaou smear of cervix Encounter for well woman exam with abnormal findings Foot pain (~2012) Fractures (~1987) Gastric ulcer Headache Left arm pain Left knee sprain Leg injury (~2014) Lipoma Lower back pain Mastodynia Morbid obesity with body mass index of 40.0-49.9 Obstructive sleep apnea of adult Right hip pain Sarcoidosis (~2004) Shoulder pain (~2001) Sore throat (10/07/15) Upper respiratory infection Uterine cancer Vision disorder Surgical History Anesthesia History of carpal tunnel repair Status post biopsy Status post biopsy Status post colonoscopy Status post hemorrhoidectomy Status post hysterectomy Family History Grandfather Heart disease Hypertension High cholesterol Grandmother Heart disease Hypertension Mother Age: 77 Diabetes mellitus Grandfather Dementia Grandmother Dementia Father No problems noted. Social History marital status: Smoking Status: Never smoker alcohol intake: current substance use type: does not use Smoking Status: Never smoker alcohol intake frequency: a few times a month Substance Use Type: does not use Exam Initial Vital Signs Initial Vital Signs: Vital Signs Temperature 99.0 F 02/19/21 12:59 Pulse Rate 99 H 02/19/21 12:59 Respiratory Rate 18 02/19/21 12:59 Blood Pressure 151/84 H 02/19/21 12:59 Pulse Oximetry 99 02/19/21 12:59 Const General: cooperative and healthy appearing HENNM Head: normal to inspection Resp Auscultation: clear to auscultation bilaterally Cardio Rate: regular rate Skin General: no rashes or lesions noted Neuro Sensory Exam: no sensory deficits noted Extrem Other: Patient does have tenderness to palpation of the inside of her upper leg. Tenderness to palpation over the front of her left knee and over the outside of her left lower leg. She does appear to have a small prepatellar swelling. No redness. Course Orders Ordered: ED Orders 02/19/21 13:46 US periph venous low extrem lt Stat Vital Signs Vital signs: Vital Signs - 8 hr 02/19/21 12:59 02/19/21 14:20 02/19/21 16:00 Temperature 99.0 F 99.8 F H Pulse Rate 99 H 96 H 68 Respiratory Rate 18 16 Blood Pressure 151/84 H 114/56 L 131/70 Pulse Oximetry 99 99 98 MDM - Extremity (Nontraumatic) Imaging Data US - DVT: Radiologist's Impression: [address] [id number] ReportSigned Patient: Daniel Krishnamurthy EMR#: [id number]: [id number]:[id number]/Sex: 60 / FDate of Service: 02/19/21Loc: EDAccession Number: [id number] Procedure: US periph venous low extrem lt Ordering Provider: Yoni Dockery D.O. PROCEDURE: US PERIPH VENOUS LOW EXTREM LT INDICATIONS: PAIN TECHNIQUE: Real-time imaging, as well as color and pulse Doppler interrogation, were performed of the lower extremity deep veins from the inguinal ligament to the popliteal fossa. COMPARISON: None. FINDINGS: The common femoral, femoral and popliteal veins are normally compressible, and free of intraluminal thrombus. Color and pulse Doppler demonstrate normal phasic intraluminal flow. There is normal augmentation response to distal compression maneuver. IMPRESSION: No evidence of deep venous thrombosis, left lower extremity Dictated by: Rex Doss M.D. on 02/19/2021 at 14:29 Approved by: Rex Doss M.D. on 02/19/2021 at 14:30 [facility] Narrative Medical decision making narrative: Neurovascularly intact. No DVT noted on ultrasound. Low suspicion for fracture. Low suspicion for septic joint. Low suspicion for cellulitis. All this is based on her exam. She potentially could have bursitis. Potentially even a meniscal injury. Informed her that she could continue with the cane. We offered her crutches however she declined. We did discuss conservative treatment to include elevation in ice. Informed her that she should contact her primary doctor to discuss further evaluation and treatment. She expressed understanding. Discharge Plan Departure Patient Disposition: Home Clinical Impression: Knee pain, left, Leg pain, left, Amyloidosis Instructions: How To Perform RICE (Rest, Ice, Compress, Elevate), How to Apply an Elastic Wrap on Knee Activity Restrictions/Additional Instructions: The ultrasound today did not show any signs of a blood clot. There is also not any indication of a infection. I recommend that you keep your leg elevated as much as possible. Use your crutches as needed. You can also try an elastic bandage or a knee brace as this may help her symptoms as well. Also recommend using ice multiple times a day. If her symptoms are not improving contact your primary doctor on Sunday to discuss further evaluation and treatment. Prescriptions: No Action mycophenolate mofetil [CellCept] 500 mg tablet 1,000 mg PO BID RF: 0 Humulin 70/30 U-100 Insulin 100 unit/mL (70-30) suspension See Rx Instructions SUBCUT BID Qty: 4 RF: 3 Lancets BID Qty: 100 RF: 0 folic acid 1 MG tablet 1 mg PO QDAY Qty: 90 RF: 1 (DME) Syringes: Ultra Fine Insulin Syringe w/Needle 0 .Route .MEDSUPPLY Qty: 1 RF: 5 naproxen 500 mg tablet 500 mg PO BID PRN (Reason: pain) Qty: 60 RF: 1 metformin 500 mg tablet,ER maci.retention 24 hr 2,000 mg PO QPM Qty: 360 RF: 3 lisinopril-hydrochlorothiazide 20-12.5 mg tablet 1 tab PO QDAY Qty: 90 RF: 3 insulin syringe-needle U-100 [BD Veo Insulin Syringe UF] 1 mL 31 gauge x 15/64 syringe See Rx Instructions .ROUTE .COMPLEX Qty: 100 RF: 12 (DME) OneTouch Ultra Blue Test Strip Strip See Dose Instructions .ROUTE .MEDSUPPLY Qty: 200 RF: 3 clobetasol 0.05 % ointment 1 applic topical QAM AND QPM Qty: 15 RF: 1 (DME) Respironics Dreamstation CPAP Qty: 1 RF: 0 Referrals: Wilian Booth MD [Primary Care Provider] -
[2021-02-19 14:20] VITALS: BP 114/56; PULSE 96; TEMP 37.7; O2SAT 99
[2021-02-19 16:00] VITALS: BP 131/70; PULSE 68; RESP 16; O2SAT 98
== END 2021-02-19 16:01 | disposition home or self-care (01) ==
PROVIDERS: Emergency Provider Emergency Medicine; PCP Family Medicine
DX: M79.605 Pain in left leg (principal); M25.562 Pain in left knee; E85.9 Amyloidosis, unspecified
CPT/HCPCS: 93971; 99283

== ENCOUNTER → 2021-02-22 17:39 | Outpatient (CLI) | payer OTHER, MEDICAID, SELFPAY ==
--- NOTE | 2021-02-22 17:44 | DI.RAD.S_ITS ---
PROCEDURE: XR KNEE LT 3V INDICATIONS: left knee pain TECHNIQUE: 3 views of the knee were acquired. COMPARISON: [facility], , KNEE 3V LEFT, 06/24/2017, 18:35. FINDINGS: Bones: No fractures or dislocations. Moderate tricompartmental osteoarthritis is seen No suspicious bony lesions. Soft tissues: . There is small to moderate suprapatellar joint effusion. No suspicious soft tissue calcifications. IMPRESSION: Moderate tricompartmental osteoarthritis. No fracture or dislocation. Small to moderate joint effusion. Dictated by: Irvin Roberts M.D. on 02/23/2021 at 8:49 Approved by: Irvin Roberts M.D. on 02/23/2021 at 8:49
== END ==
PROVIDERS: PCP Family Medicine; Referring Provider Family Medicine; Visit Provider Family Medicine
DX: M25.562 Pain in left knee (principal); M79.605 Pain in left leg; M17.12 Unilateral primary osteoarthritis, left knee; M25.462 Effusion, left knee
CPT/HCPCS: 73562

== ENCOUNTER 2021-03-01 15:15 | Outpatient (RCR) | payer OTHER, MEDICAID, SELFPAY ==
--- NOTE | 2021-01-05 11:59 | PT.OIE ---
Current Diagnoses Female genital prolapse, unspecified (01/04/21) Full incontinence of feces (01/04/21) Retention of urine, unspecified (01/04/21) Past Medical History (Last Updated 11/17/20 @ 08:00 by HEMA Geronimo) Abnormal chest xray (~2002) Abscess of right groin Acne (~2004) Anemia Ankle pain (~2012) Asthma Asthma (~1997) Behaviorally induced insufficient sleep syndrome Carpal tunnel syndrome (~1996) Chest pain Controlled type 2 diabetes mellitus (08/02/15) Diabetes mellitus DKA, type 1 Eczema (~1997) Edema Encounter for routine gynecological examination with Papanicolaou smear of cervix Encounter for well woman exam with abnormal findings Foot pain (~2012) Fractures (~1987) Gastric ulcer Headache Left arm pain Left knee sprain Leg injury (~2014) Lipoma Lower back pain Mastodynia Morbid obesity with body mass index of 40.0-49.9 Obstructive sleep apnea of adult Right hip pain Sarcoidosis (~2004) Shoulder pain (~2001) Sore throat (10/07/15) Upper respiratory infection Uterine cancer Vision disorder Past Surgical History (Last Reviewed 11/16/20 @ 09:02 by HEMA Geronimo) Anesthesia History of carpal tunnel repair Status post biopsy Status post biopsy Status post colonoscopy Status post hemorrhoidectomy Status post hysterectomy Visit Care Team Role Provider Type Wilian Booth MD Primary Care Provider Physician Specialty: [facility] Address: [address] [place] [address] Email: [email or web address] HEMA Geronimo Attending Provider Advanced Instrument Tech Referring Provider Specialty: [facility] Address: [address] [place] [address] Email: [email or web address] Physical Therapy Initial Evaluation PT-OP-A Visit Information Start: 01/04/21 12:28 Freq: Status: Active Protocol: Document 01/04/21 16:00 [facility] (Rec: 01/04/21 17:10 [facility] [email or web address]) Out-Patient Physical Therapy Visit Information Visit Information Visit Type Initial Evaluation Visit Start Time 16:00 Visit Stop Time 16:45 Total Visit Minutes 45 Visit Number 1 Evaluation Information Evaluation Date 01/04/21 PT-OP-B Current Condition Start: 01/04/21 12:28 Freq: Status: Active Protocol: Document 01/04/21 16:00 [facility] (Rec: 01/04/21 16:30 [facility] [id number]) Current Condition History of Current Condition Onset Date 5 years ago worse in the last year Current Complaints constipation, pelvic pressure heaviness, urinary urgency and frequency. History of Current Condition pt reports she has been having alot of pain in her pelvic area and in her bladder area. She complains of pelvic pressure and heaviness. She will have a great deal of urgency with minimal voiding. Trying to get to the bathroom she is leaking all the time. It feels like a lump in her bladder. She reports having a explosion of fecal mater while walking on the track when she couldn't hold it. She recently [facility] Bowel movements are very difficult and very strenous to pass stool. She has gone over two weeks prior to a bowel movement. 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 Prior Treatments and Tests Hysterectomy 2003 colonoscopy notes that the anal rectal angle has changed Treatment Goals Patient/Caregiver Goals patients goals include decreasing urgency, frequency, pain and pressure. Improving bowel movements PT-OP-C Subjective Start: 01/04/21 12:28 Freq: Status: Active Protocol: Document 01/04/21 16:00 [facility] (Rec: 01/05/21 11:08 [facility] [email or web address]) Patient Questionnaires Pelvic Pain and Urgency/Frequency Patient Symptom Scale Pelvic Pain Score 14 OP-PT Pain Assessment Location bladder pain Pain Location Details bladder pain Intensity 8 Scale Used Numeric (0 - 10) PT-OP-I Pelvic Floor Start: 01/04/21 12:28 Freq: Status: Active Protocol: Document 01/04/21 16:00 [facility] (Rec: 01/04/21 17:09 [facility] [email or web address]) Pelvic Floor Assessment Urine Pelvic Floor Surgery Yes: hysterectomy Urinary Symptoms Urge Sensation,Prolapse, Hesitancy,Incomplete Emptying, Pain Leakage Size Large Leakage Cause Urge Leaks Per Day constant leakage Nocturia 2 times Urine Pad Type Maxi Pad Bowel Bowel Symptoms Constipation,Fecal Leakage Other Bowel Symptoms hx of anal fissure Bowel Movement Frequency 1 xm per week or longer Prolapse Cystocele Grade 2 Rectocele Grade 1 Contraction Ability Voluntary Contraction Moderate Voluntary Relaxation Moderate Manual Muscle Testing Left 3 Manual Muscle Testing Right 3 Manual Muscle Testing Anterior 3 Manual Muscle Testing Posterior 3 PT-OP-J Posture/Palpation/Skin Start: 01/04/21 12:28 Freq: Status: Active Protocol: Document 01/04/21 16:00 [facility] (Rec: 01/05/21 11:06 [facility] [email or web address]) Palpation Assessment Location abdominal wall Palpation Details abdomen is distended, palpation reveals stool in the colon from transverse colon down the descending colon, visceral tightness over the bladder One Palpation Findings Tenderness PT-OP-Q Treatments Start: 01/04/21 12:28 Freq: Status: Active Protocol: Document 01/04/21 16:00 [facility] (Rec: 01/04/21 17:08 [facility] [email or web address]) Self-Care/Home Management Treatment Education Patient Education Home Exercise Program Other Education pt is educated on ILU self massage PT-OP-T Assessment and Plan Start: 01/04/21 12:28 Freq: Status: Active Protocol: Document 01/04/21 16:00 [facility] (Rec: 01/05/21 11:36 [facility] [email or web address]) Physical Therapy Assessment Rehab Potential Rehabilitation Potential Good Evaluation Complexity Number of Personal Factors/Comorbidities 0 Number of Body Systems Impaired 1-2 Clinical Presentation at Evaluation Stable Impairments Impairments Activity Tolerance,Functional Activities,Functional Mobility ,Pain,Soft Tissue Mobility, Strength,Tone Other Impairments urinary incontinence, urgency and frequency, fecal incontinence, pelvic organ prolapse Goals Decreased endurance of the pelvic floor muscles Jail Goal (LTG) Daniel is able to sustain a pelvic floor contraction in supine x 10 seconds and standing x 5 seconds for improved support of the bladder LTG Duration 8 weeks patient lacks awareness and a home program for bowel care Short Term Goal (STG) Daniel is educated in bowel care including diet, abdominal massage, positioning while toileting, and improved pelvic floor tone to help improve frequency of bowel movements. STG Duration 5 weeks Pelvic pressure and bladder pain Jail Goal (LTG) Daniel reports a overall reduction in pelvic pressure and bladder pain. She is able to return to walking 20-30 minutes a day without increased pelvic pressure LTG Duration 8 weeks urinary incontinence that is constant throughout the day Short Term Goal (STG) Daniel is educated on the importance of regular bowel movements to decrease pressure on the bladder STG Duration 1-2 weeks Jail Goal (LTG) Daniel has been educated on the urge deference technique and bladder retraining to help decrease urgency and encourage full bladder emptying. LTG Duration 8 weeks Assessment Summary Assessment Daniel is a 60 year old female referred to PT for c/o urinary urgency and frequency bladder pain, pelvic heaviness and pressure, urinary incontinence and a episode of fecal incontinence. Daniel reports her symptoms have worsened over the past 5 years but they are definitely worse this past year. She lost her dog and is no longer taking her walks and since then she reports her constipation issues have increased greatly. She reports frequent constipation and that she can go at times up to 2 weeks before having a bowel movement . Daniel describes a strong urge to void but has minimal emptying of her bladder. With examination today there is a 2-3 degree cystocele and 1st degree rectal prolapse. With palpation over the abdomen she has palpable tightness in her transverse and descending colon. She presents with a full and distended colon. With the pressure from her colon pressing onto her bladder this is a major cause for her urgency symptoms. She describes her stool as at times watery and at times small pellets but not stool that is easily able to pass. She is able to contract all parts of the levator ani but is weak and lacks endurance of contraction. Treatment will focus on pelvic decompression , constipation management, Abdominal and colon massage to help improve the patients ability to fully empty her bowels, bladder retraining and urge deference technique, EMG biofeeback. Physical Therapy Plan Frequency and Duration Frequency of Treatment 1x/Week Duration of Treatment 8 Plan of Care Start Date 01/04/21 Plan of Care End Date 03/01/21 Therapeutic Interventions Therapeutic Interventions Home Exercise Program,Manual Therapy,Neuromuscular Re- education,Patient/Caregiver Education,Self-Care/Home Management,Soft Tissue Mobilization,Therapeutic Exercises Modalities Biofeedback Next Visit Focus/Plan Next Note Type Treatment Note Next Visit Plan Abdominal massage, visceral manual work over the colon, pelvic floor muscle endurance training, EMG biofeedback for pelvic floor awareness and strengthening.
--- NOTE | 2021-01-05 11:59 | PT.OPPOC ---
Physical, Occupational & Speech Therapy At [facility] Current Diagnoses Female genital prolapse, unspecified (01/04/21) Full incontinence of feces (01/04/21) Retention of urine, unspecified (01/04/21) Visit Care Team Role Provider Type Wilian Booth MD Primary Care Provider Physician Specialty: [facility] Address: [address] [place] [address], [id number] Email: [email or web address] Geronimo Attending Provider Advanced Filer Finish Referring Provider Specialty: [facility] Address: [address] [place] [address], [id number] Email: [email or web address] Plan Of Care PT-OP-T Assessment and Plan Start: 01/04/21 12:28 Freq: Status: Active Protocol: Document 01/04/21 16:00 [facility] (Rec: 01/05/21 11:36 [facility] [email or web address]) Physical Therapy Assessment Rehab Potential Rehabilitation Potential Good Evaluation Complexity Number of Personal Factors/Comorbidities 0 Number of Body Systems Impaired 1-2 Clinical Presentation at Evaluation Stable Impairments Impairments Activity Tolerance,Functional Activities,Functional Mobility ,Pain,Soft Tissue Mobility, Strength,Tone Other Impairments urinary incontinence, urgency and frequency, fecal incontinence, pelvic organ prolapse Goals Decreased endurance of the pelvic floor muscles Piano Mechanic Goal (LTG) Daniel is able to sustain a pelvic floor contraction in supine x 10 seconds and standing x 5 seconds for improved support of the bladder LTG Duration 8 weeks patient lacks awareness and a home program for bowel care Short Term Goal (STG) Daniel is educated in bowel care including diet, abdominal massage, positioning while toileting, and improved pelvic floor tone to help improve frequency of bowel movements. STG Duration 5 weeks Pelvic pressure and bladder pain Piano Mechanic Goal (LTG) Daniel reports a overall reduction in pelvic pressure and bladder pain. She is able to return to walking 20-30 minutes a day without increased pelvic pressure LTG Duration 8 weeks urinary incontinence that is constant throughout the day Short Term Goal (STG) Daniel is educated on the importance of regular bowel movements to decrease pressure on the bladder STG Duration 1-2 weeks Senior Living Goal (LTG) Daniel has been educated on the urge deference technique and bladder retraining to help decrease urgency and encourage full bladder emptying. LTG Duration 8 weeks Assessment Summary Assessment Daniel is a 60 year old female referred to PT for c/o urinary urgency and frequency bladder pain, pelvic heaviness and pressure, urinary incontinence and a episode of fecal incontinence. Daniel reports her symptoms have worsened over the past 5 years but they are definitely worse this past year. She lost her dog and is no longer taking her walks and since then she reports her constipation issues have increased greatly. She reports frequent constipation and that she can go at times up to 2 weeks before having a bowel movement . Daniel describes a strong urge to void but has minimal emptying of her bladder. With examination today there is a 2-3 degree cystocele and 1st degree rectal prolapse. With palpation over the abdomen she has palpable tightness in her transverse and descending colon. She presents with a full and distended colon. With the pressure from her colon pressing onto her bladder this is a major cause for her urgency symptoms. She describes her stool as at times watery and at times small pellets but not stool that is easily able to pass. She is able to contract all parts of the levator ani but is weak and lacks endurance of contraction. Treatment will focus on pelvic decompression , constipation management, Abdominal and colon massage to help improve the patients ability to fully empty her bowels, bladder retraining and urge deference technique, EMG biofeeback. Physical Therapy Plan Frequency and Duration Frequency of Treatment 1x/Week Duration of Treatment 8 Plan of Care Start Date 01/04/21 Plan of Care End Date 03/01/21 Therapeutic Interventions Therapeutic Interventions Home Exercise Program,Manual Therapy,Neuromuscular Re- education,Patient/Caregiver Education,Self-Care/Home Management,Soft Tissue Mobilization,Therapeutic Exercises Modalities Biofeedback Next Visit Focus/Plan Next Note Type Treatment Note Next Visit Plan Abdominal massage, visceral manual work over the colon, pelvic floor muscle endurance training, EMG biofeedback for pelvic floor awareness and strengthening. Plan of Care Dates Plan of Care Start Date 01/04/21 Plan of Care End Date 03/01/21 Electronically Signed by: Shantal Friend, PT 01/05/21 [id number] Please Sign and Return: I have reviewed this Plan of Care and certify that the skilled therapy services above are required to meet the patient?s needs. Physician Signature Date Printed Name and Credentials Clinical Instructor Signature Printed Name and Credentials
--- NOTE | 2021-01-11 17:53 | PT.OTN ---
Current Diagnoses Female genital prolapse, unspecified (01/11/21) Full incontinence of feces (01/11/21) Retention of urine, unspecified (01/11/21) Physical Therapy Treatment Note PT-OP-A Visit Information Start: 01/04/21 12:28 Freq: Status: Active Protocol: Document 01/11/21 16:10 [facility] (Rec: 01/11/21 16:31 [facility] [id number]) Out-Patient Physical Therapy Visit Information Visit Information Visit Type Treatment Note Visit Start Time 16:05 Visit Stop Time 16:50 Total Visit Minutes 45 Visit Number 2 PT-OP-B Current Condition Start: 01/04/21 12:28 Freq: Status: Active Protocol: Document 01/04/21 16:00 [facility] (Rec: 01/04/21 16:30 [facility] [id number]) Current Condition History of Current Condition Onset Date 5 years ago worse in the last year Current Complaints constipation, pelvic pressure heaviness, urinary urgency and frequency. History of Current Condition pt reports she has been having alot of pain in her pelvic area and in her bladder area. She complains of pelvic pressure and heaviness. She will have a great deal of urgency with minimal voiding. Trying to get to the bathroom she is leaking all the time. It feels like a lump in her bladder. She reports having a explosion of fecal mater while walking on the track when she couldn't hold it. She recently saw Dr[facility] Jaya N[facility]. Bowel movements are very difficult and very strenous to pass stool. She has gone over two weeks prior to a bowel movement. 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 Prior Treatments and Tests Hysterectomy 2004 colonoscopy notes that the anal rectal angle has changed Treatment Goals Patient/Caregiver Goals patients goals include decreasing urgency, frequency, pain and pressure. Improving bowel movements PT-OP-C Subjective Start: 01/04/21 12:28 Freq: Status: Active Protocol: Document 01/11/21 16:10 [facility] (Rec: 01/11/21 16:31 [facility] [id number]) OP-PT Subjective Patient Comments Patient Comments pt reports she bought the squatty potty, she has been doing the massage and notes some soreness. pt also notes has a history of uterine cancer. PT-OP-I Pelvic Floor Start: 01/04/21 12:28 Freq: Status: Active Protocol: Document 01/04/21 16:00 [facility] (Rec: 01/04/21 17:09 [facility] [email or web address]) Pelvic Floor Assessment Urine Pelvic Floor Surgery Yes: hysterectomy Urinary Symptoms Urge Sensation,Prolapse, Hesitancy,Incomplete Emptying, Pain Leakage Size Large Leakage Cause Urge Leaks Per Day constant leakage Nocturia 2 times Urine Pad Type Maxi Pad Bowel Bowel Symptoms Constipation,Fecal Leakage Other Bowel Symptoms hx of anal fissure Bowel Movement Frequency 1 xm per week or longer Prolapse Cystocele Grade 2 Rectocele Grade 1 Contraction Ability Voluntary Contraction Moderate Voluntary Relaxation Moderate Manual Muscle Testing Left 3 Manual Muscle Testing Right 3 Manual Muscle Testing Anterior 3 Manual Muscle Testing Posterior 3 PT-OP-J Posture/Palpation/Skin Start: 01/04/21 12:28 Freq: Status: Active Protocol: Document 01/04/21 16:00 [facility] (Rec: 01/05/21 11:06 [facility] [email or web address]) Palpation Assessment Location abdominal wall Palpation Details abdomen is distended, palpation reveals stool in the colon from transverse colon down the descending colon, visceral tightness over the bladder One Palpation Findings Tenderness PT-OP-Q Treatments Start: 01/04/21 12:28 Freq: Status: Active Protocol: Document 01/11/21 17:44 [facility] (Rec: 01/11/21 17:53 [facility] [email or web address]) Therapeutic Exercises Other Exercises cat cow and quadruped sidebends Reps/Minutes x 10 each Manual Therapy Treatment Manual Techniques bowel massage Comments pain noted in the right side of the transverse colon PT-OP-T Assessment and Plan Start: 01/04/21 12:28 Freq: Status: Active Protocol: Document 01/11/21 17:44 [facility] (Rec: 01/11/21 17:53 [facility] [email or web address]) Physical Therapy Assessment Assessment Summary Assessment Time was spent with Relda today on education of the pelvic floor muscles and taking with her about sex therapy. She is very upset that her and her do not have a active sex life. She may benefit from a sex therapy consult. We worked on bowel massage today as Relda c/o not being able to fully defecate. I also added in quadruped sidebends and cat cow to help stimulate colon movement Physical Therapy Plan Frequency and Duration Frequency of Treatment 1x/Week Duration of Treatment 8 Plan of Care Start Date 01/04/21 Plan of Care End Date 03/01/21 Therapeutic Interventions Therapeutic Interventions Home Exercise Program,Manual Therapy,Neuromuscular Re- education,Patient/Caregiver Education,Self-Care/Home Management,Soft Tissue Mobilization,Therapeutic Exercises Modalities Biofeedback Next Visit Focus/Plan Next Note Type Treatment Note Next Visit Plan Abdominal massage, visceral manual work over the colon, pelvic floor muscle endurance training, EMG biofeedback for pelvic floor awareness and strengthening.
--- NOTE | 2021-01-18 17:04 | PT.OTN ---
Current Diagnoses Female genital prolapse, unspecified (01/18/21) Full incontinence of feces (01/18/21) Retention of urine, unspecified (01/18/21) Physical Therapy Treatment Note PT-OP-A Visit Information Start: 01/04/21 12:28 Freq: Status: Active Protocol: Document 01/18/21 16:57 [facility] (Rec: 01/18/21 17:03 [facility] [id number]) Out-Patient Physical Therapy Visit Information Visit Information Visit Type Treatment Note Visit Start Time 16:00 Visit Stop Time 16:45 Total Visit Minutes 45 Visit Number 3 PT-OP-B Current Condition Start: 01/04/21 12:28 Freq: Status: Active Protocol: Document 01/04/21 16:00 [facility] (Rec: 01/04/21 16:30 [facility] [id number]) Current Condition History of Current Condition Onset Date 5 years ago worse in the last year Current Complaints constipation, pelvic pressure heaviness, urinary urgency and frequency. History of Current Condition pt reports she has been having alot of pain in her pelvic area and in her bladder area. She complains of pelvic pressure and heaviness. She will have a great deal of urgency with minimal voiding. Trying to get to the bathroom she is leaking all the time. It feels like a lump in her bladder. She reports having a explosion of fecal mater while walking on the track when she couldn't hold it. She recently [facility]. Bowel movements are very difficult and very strenous to pass stool. She has gone over two weeks prior to a bowel movement. 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 Prior Treatments and Tests Hysterectomy 2003 colonoscopy notes that the anal rectal angle has changed Treatment Goals Patient/Caregiver Goals patients goals include decreasing urgency, frequency, pain and pressure. Improving bowel movements PT-OP-C Subjective Start: 01/04/21 12:28 Freq: Status: Active Protocol: Document 01/18/21 16:57 [facility] (Rec: 01/18/21 17:03 [facility] [id number]) OP-PT Subjective Patient Comments Patient Comments pt reports the squatty potty hasnt helped that much but she feels the exercises have helped her back. She did have a really good bowel movement after last visit. She is still c/o pain on the right lower quadrant. Will see oncology soon. PT-OP-I Pelvic Floor Start: 01/04/21 12:28 Freq: Status: Active Protocol: Document 01/04/21 16:00 [facility] (Rec: 01/04/21 17:09 [facility] [id number]) Pelvic Floor Assessment Urine Pelvic Floor Surgery Yes: hysterectomy Urinary Symptoms Urge Sensation,Prolapse, Hesitancy,Incomplete Emptying, Pain Leakage Size Large Leakage Cause Urge Leaks Per Day constant leakage Nocturia 2 times Urine Pad Type Maxi Pad Bowel Bowel Symptoms Constipation,Fecal Leakage Other Bowel Symptoms hx of anal fissure Bowel Movement Frequency 1 xm per week or longer Prolapse Cystocele Grade 2 Rectocele Grade 1 Contraction Ability Voluntary Contraction Moderate Voluntary Relaxation Moderate Manual Muscle Testing Left 3 Manual Muscle Testing Right 3 Manual Muscle Testing Anterior 3 Manual Muscle Testing Posterior 3 PT-OP-J Posture/Palpation/Skin Start: 01/04/21 12:28 Freq: Status: Active Protocol: Document 01/04/21 16:00 [facility] (Rec: 01/05/21 11:06 [facility] [id number]) Palpation Assessment Location abdominal wall Palpation Details abdomen is distended, palpation reveals stool in the colon from transverse colon down the descending colon, visceral tightness over the bladder One Palpation Findings Tenderness PT-OP-Q Treatments Start: 01/04/21 12:28 Freq: Status: Active Protocol: Document 01/18/21 16:57 [facility] (Rec: 01/18/21 17:03 [facility] [id number]) Therapeutic Exercises Supine Exercises supine ball squeeze Reps/Minutes 10 reps holding x 5 seconds each pelvic floor long holds Reps/Minutes x 10 reps x 10 second hold, 10 second release Other Exercises cat cow and quadruped sidebends Reps/Minutes x 10 each Manual Therapy Treatment Manual Techniques bowel massage Comments pain noted in the right side of the transverse colon PT-OP-T Assessment and Plan Start: 01/04/21 12:28 Freq: Status: Active Protocol: Document 01/18/21 16:57 [facility] (Rec: 01/18/21 17:03 [facility] [id number]) Physical Therapy Assessment Assessment Summary Assessment pt lacks endurance of the pelvic floor. She is able to contract initially but then the contraction goes away quickly. I tried endurance holds with EMG biofeedback. She is not able to keep the electrode in an has difficulty holding more than 1-2 seconds . I did add in adductor assist today. She tolerated this well. Physical Therapy Plan Frequency and Duration Frequency of Treatment 1x/Week Duration of Treatment 8 Plan of Care Start Date 01/04/21 Plan of Care End Date 03/01/21 Therapeutic Interventions Therapeutic Interventions Home Exercise Program,Manual Therapy,Neuromuscular Re- education,Patient/Caregiver Education,Self-Care/Home Management,Soft Tissue Mobilization,Therapeutic Exercises Modalities Biofeedback Next Visit Focus/Plan Next Note Type Treatment Note Next Visit Plan Abdominal massage, visceral manual work over the colon, pelvic floor muscle endurance training, Ebiofeedback for pelvic floor awareness and strengthening.
--- NOTE | 2021-02-16 13:51 | PT.OTN ---
Current Diagnoses Female genital prolapse, unspecified (02/16/21) Full incontinence of feces (02/16/21) Retention of urine, unspecified (02/16/21) Physical Therapy Treatment Note PT-OP-A Visit Information Start: 01/04/21 12:28 Freq: Status: Active Protocol: Document 02/16/21 12:17 [facility] (Rec: 02/16/21 12:23 [facility] [id number]) Out-Patient Physical Therapy Visit Information Visit Information Visit Type Treatment Note Visit Start Time 12:15 Visit Stop Time 12:45 Total Visit Minutes 30 Visit Number 4 PT-OP-B Current Condition Start: 01/04/21 12:28 Freq: Status: Active Protocol: Document 01/04/21 16:00 [facility] (Rec: 01/04/21 16:30 [facility] [id number]) Current Condition History of Current Condition Onset Date 5 years ago worse in the last year Current Complaints constipation, pelvic pressure heaviness, urinary urgency and frequency. History of Current Condition pt reports she has been having alot of pain in her pelvic area and in her bladder area. She complains of pelvic pressure and heaviness. She will have a great deal of urgency with minimal voiding. Trying to get to the bathroom she is leaking all the time. It feels like a lump in her bladder. She reports having a explosion of fecal mater while walking on the track when she couldn't hold it. She recently saw Dr. Jaya Nance at [facility]. Bowel movements are very difficult and very strenous to pass stool. She has gone over two weeks prior to a bowel movement. 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 Prior Treatments and Tests Hysterectomy 2003 colonoscopy notes that the anal rectal angle has changed Treatment Goals Patient/Caregiver Goals patients goals include decreasing urgency, frequency, pain and pressure. Improving bowel movements PT-OP-C Subjective Start: 01/04/21 12:28 Freq: Status: Active Protocol: Document 02/16/21 12:17 [facility] (Rec: 02/16/21 12:23 [facility] [id number]) OP-PT Subjective Patient Comments Patient Comments pt is 15 min late and just got back yesterday from [place] Has been really working on her pelvic floor exercises and feels like she has a better manager mining, she isn't leaking as much. She has a colonoscopy on the 28 of February Patient Reported Progress Improving PT-OP-I Pelvic Floor Start: 01/04/21 12:28 Freq: Status: Active Protocol: Document 01/04/21 16:00 [facility] (Rec: 01/04/21 17:09 [facility] [id number]) Pelvic Floor Assessment Urine Pelvic Floor Surgery Yes: hysterectomy Urinary Symptoms Urge Sensation,Prolapse, Hesitancy,Incomplete Emptying, Pain Leakage Size Large Leakage Cause Urge Leaks Per Day constant leakage Nocturia 2 times Urine Pad Type Maxi Pad Bowel Bowel Symptoms Constipation,Fecal Leakage Other Bowel Symptoms hx of anal fissure Bowel Movement Frequency 1 xm per week or longer Prolapse Cystocele Grade 2 Rectocele Grade 1 Contraction Ability Voluntary Contraction Moderate Voluntary Relaxation Moderate Manual Muscle Testing Left 3 Manual Muscle Testing Right 3 Manual Muscle Testing Anterior 3 Manual Muscle Testing Posterior 3 PT-OP-J Posture/Palpation/Skin Start: 01/04/21 12:28 Freq: Status: Active Protocol: Document 01/04/21 16:00 [facility] (Rec: 01/05/21 11:06 [facility] [id number]) Palpation Assessment Location abdominal wall Palpation Details abdomen is distended, palpation reveals stool in the colon from transverse colon down the descending colon, visceral tightness over the bladder One Palpation Findings Tenderness PT-OP-Q Treatments Start: 01/04/21 12:28 Freq: Status: Active Protocol: Document 02/16/21 12:15 [facility] (Rec: 02/16/21 13:50 [facility] [id number]) Therapeutic Exercises Supine Exercises TA with marching Reps/Minutes x 20 pelvic floor quick contractions Reps/Minutes x 10 reps 2 second hold 2 second relax supine ball squeeze Reps/Minutes 10 reps holding x 5 seconds each pelvic floor long holds Reps/Minutes x 10 reps x 10 second hold, 10 second release Self-Care/Home Management Treatment Education Patient Education Home Exercise Program PT-OP-T Assessment and Plan Start: 01/04/21 12:28 Freq: Status: Active Protocol: Document 02/16/21 12:17 [facility] (Rec: 02/16/21 12:23 [facility] [id number]) Physical Therapy Assessment Goals urinary incontinence that is constant throughout the day Short Term Goal (STG) Relda is educated on the importance of regular bowel movements to decrease pressure on the bladder STG Duration 1-2 weeks Snf Goal (LTG) Relda has been educated on the urge deference technique and bladder retraining to help decrease urgency and encourage full bladder emptying. pt reports her urgency is improving and her bladder control is a little better LTG Duration 8 weeks Assessment Summary Assessment pt will have her colonoscopy February 28, she is still feeling blocked up in her colon. Her bladder symptoms are improving. Pt presented to PT in a wheel chair today as she hurt her right leg. She was limited with her exercises today but was able to tolerate lower abdominal strenthening and her pelvic floor exercises. Physical Therapy Plan Frequency and Duration Frequency of Treatment 1x/Week Duration of Treatment 8 Plan of Care Start Date 01/04/21 Plan of Care End Date 03/01/21 Therapeutic Interventions Therapeutic Interventions Home Exercise Program,Manual Therapy,Neuromuscular Re- education,Patient/Caregiver Education,Self-Care/Home Management,Soft Tissue Mobilization,Therapeutic Exercises Modalities Biofeedback
--- NOTE | 2021-03-01 17:45 | PT.OTN ---
Current Diagnoses Female genital prolapse, unspecified (03/01/21) Full incontinence of feces (03/01/21) Retention of urine, unspecified (03/01/21) Physical Therapy Treatment Note PT-OP-A Visit Information Start: 01/04/21 12:28 Freq: Status: Active Protocol: Document 03/01/21 15:20 [facility] (Rec: 03/01/21 17:33 [facility] [id number]) Out-Patient Physical Therapy Visit Information Visit Information Visit Type Treatment Note Visit Start Time 15:20 Visit Stop Time 16:00 Total Visit Minutes 40 Visit Number 5 PT-OP-B Current Condition Start: 01/04/21 12:28 Freq: Status: Active Protocol: Document 01/04/21 16:00 [facility] (Rec: 01/04/21 16:30 [facility] [id number]) Current Condition History of Current Condition Onset Date 5 years ago worse in the last year Current Complaints constipation, pelvic pressure heaviness, urinary urgency and frequency. History of Current Condition pt reports she has been having alot of pain in her pelvic area and in her bladder area. She complains of pelvic pressure and heaviness. She will have a great deal of urgency with minimal voiding. Trying to get to the bathroom she is leaking all the time. It feels like a lump in her bladder. She reports having a explosion of fecal mater while walking on the track when she couldn't hold it. She recently [facility] Bowel movements are very difficult and very strenous to pass stool. She has gone over two weeks prior to a bowel movement. 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 Prior Treatments and Tests Hysterectomy 2003 colonoscopy notes that the anal rectal angle has changed Treatment Goals Patient/Caregiver Goals patients goals include decreasing urgency, frequency, pain and pressure. Improving bowel movements PT-OP-C Subjective Start: 01/04/21 12:28 Freq: Status: Active Protocol: Document 03/01/21 15:22 [facility] (Rec: 03/01/21 15:48 [facility] [id number]) OP-PT Subjective Patient Comments Patient Comments pt had her colonoscopy yesterday and Relda reports she felt much better after her colon clense. She reports that she has noticed coffee causes more urgency, especially mochas. She did have one episode with strong urge to void but was able to control the urge until she go to the bathroom. She reports her plan is to cut back on coffee and continue with her exercises. She would like today to be her last PT visit as she needs to seek PT for her knee Patient Reported Progress Improving PT-OP-I Pelvic Floor Start: 01/04/21 12:28 Freq: Status: Active Protocol: Document 01/04/21 16:00 [facility] (Rec: 01/04/21 17:09 [facility] [id number]) Pelvic Floor Assessment Urine Pelvic Floor Surgery Yes: hysterectomy Urinary Symptoms Urge Sensation,Prolapse, Hesitancy,Incomplete Emptying, Pain Leakage Size Large Leakage Cause Urge Leaks Per Day constant leakage Nocturia 2 times Urine Pad Type Maxi Pad Bowel Bowel Symptoms Constipation,Fecal Leakage Other Bowel Symptoms hx of anal fissure Bowel Movement Frequency 1 xm per week or longer Prolapse Cystocele Grade 2 Rectocele Grade 1 Contraction Ability Voluntary Contraction Moderate Voluntary Relaxation Moderate Manual Muscle Testing Left 3 Manual Muscle Testing Right 3 Manual Muscle Testing Anterior 3 Manual Muscle Testing Posterior 3 PT-OP-J Posture/Palpation/Skin Start: 01/04/21 12:28 Freq: Status: Active Protocol: Document 01/04/21 16:00 [facility] (Rec: 01/05/21 11:06 [facility] [id number]) Palpation Assessment Location abdominal wall Palpation Details abdomen is distended, palpation reveals stool in the colon from transverse colon down the descending colon, visceral tightness over the bladder One Palpation Findings Tenderness PT-OP-Q Treatments Start: 01/04/21 12:28 Freq: Status: Active Protocol: Document 03/01/21 15:22 [facility] (Rec: 03/01/21 15:48 [facility] [id number]) Therapeutic Exercises Supine Exercises bridges with ball squeeze Reps/Minutes x 10 reps TA with marching Reps/Minutes x 20 pelvic floor quick contractions Reps/Minutes x 10 reps 2 second hold 2 second relax supine ball squeeze Reps/Minutes 10 reps holding x 5 seconds each pelvic floor long holds Reps/Minutes 5 second hold time Comments pt reports 10 seconds is too hard to do at home but agreeded to continue 5 Self-Care/Home Management Treatment Education Patient Education Home Exercise Program PT-OP-T Assessment and Plan Start: 01/04/21 12:28 Freq: Status: Active Protocol: Document 03/01/21 15:22 [facility] (Rec: 03/01/21 15:48 [facility] [id number]) Physical Therapy Assessment Goals Decreased endurance of the pelvic floor muscles Detention Goal (LTG) Daniel is able to sustain a pelvic floor contraction in supine x 10 seconds and standing x 5 seconds for improved support of the bladder Reltatiana is able to sustain a contraction for 5 seconds now LTG Duration 8 weeks patient lacks awareness and a home program for bowel care Short Term Goal (STG) Daniel is educated in bowel care including diet, abdominal massage, positioning while toileting, and improved pelvic floor tone to help improve frequency of bowel movements. GOAL MET STG Duration 5 weeks Pelvic pressure and bladder pain Tick Sewer Goal (LTG) Daniel reports a overall reduction in pelvic pressure and bladder pain. She is able to return to walking 20-30 minutes a day without increased pelvic pressure She is able to void better now and sits to fully empty her bladder, the bladder pressure has decreased LTG Duration 8 weeks urinary incontinence that is constant throughout the day Short Term Goal (STG) Daniel is educated on the importance of regular bowel movements to decrease pressure on the bladder GOAL MET STG Duration 1-2 weeks Detention Goal (LTG) Daniel has been educated on the urge deference technique and bladder retraining to help decrease urgency and encourage full bladder emptying. pt reports her urgency is improving and her bladder control is a little better LTG Duration 8 weeks Seven Impairment Restricted left ankle ROM LTG Duration 08/06/20 - Improving Six Impairment Pt exhibits collapsed L arch, navicular 1.4 cm closer to ground in standing LTG Duration Met Five Impairment LEFS score of 27/80 LTG Duration 08/06/20 Four Impairment Right hip weakness LTG Duration Met Three Impairment Pt unable to stand longer than 10 minutes without increased symptoms LTG Duration 08/06/20 Two Impairment Pt has difficulty donning and doffing footwear LTG Duration Met One Impairment Pt does not have an appropriate home exercise program STG Duration Met Assessment Summary Assessment Daniel has made some progress with PT. She reports decreased urgency and has been able to make it to the bathroom when she has a strong urge. She reports decreased pelvic pressure and bladder pain. She wishes to hold on PT at this time so that she can work on her left knee that is bothering her. All of Daniel's home exercises were reviewed today and she will be discharged to a [facility] Physical Therapy Plan Discharge Physical Therapy Discharge Reasons Patient Request
== END 2021-06-03 10:51 ==
LOC: PHYS 15:15
PROVIDERS: PCP Family Medicine; Referring Provider Nurse Practitioner; Visit Provider Nurse Practitioner
DX: R15.9 Full incontinence of feces (principal); R33.9 Retention of urine, unspecified; N81.9 Female genital prolapse, unspecified
CPT/HCPCS: 97110; 97140; 97161; 97535

== ENCOUNTER → 2021-04-20 11:31 | Outpatient (CLI) | payer MEDICARE, OTHER, MEDICAID, SELFPAY ==
[2021-04-20 12:45] LABS: COVID19 -Nasal RAPID Negative (Negative)
== END ==
PROVIDERS: PCP Family Medicine; Visit Provider Nurse Practitioner Family
DX: Z20.822 Contact with and (suspected) exposure to COVID-19 (principal); R05 Cough; R50.9 Fever, unspecified; R10.9 Unspecified abdominal pain
CPT/HCPCS: 87635

== ENCOUNTER → 2021-05-07 17:31 | Outpatient (CLI) | payer MEDICARE, OTHER, MEDICAID, SELFPAY ==
--- NOTE | 2021-05-07 17:38 | DI.RAD.S_ITS ---
PROCEDURE: XR CHEST 2V INDICATIONS: Cough, Amylodosis, Exposed to Covid 19 TECHNIQUE: 2 views of the chest were acquired. COMPARISON: [facility], CR, XR CHEST 1V, 08/02/2020, 12:09. FINDINGS: Surgical changes and devices: None. Lungs and pleura: Diffuse chronic interstitial changes noted in the lungs, similar prior exam. No focal infiltrate. Mediastinum: Mediastinal contours are normal. Heart size is normal. Bones and chest wall: No suspicious bony abnormalities. Soft tissues appear unremarkable. IMPRESSION: Diffuse chronic interstitial changes, similar prior exam Approved by: Rex Doss M.D. on 05/07/2021 at 18:11
== END ==
PROVIDERS: PCP Family Medicine; Referring Provider Family Medicine; Visit Provider Family Medicine
DX: E85.9 Amyloidosis, unspecified (principal); Z20.822 Contact with and (suspected) exposure to COVID-19; R05.9 Cough, unspecified
CPT/HCPCS: 71046

== ENCOUNTER → 2021-05-16 11:07 | Outpatient (CLI) | payer MEDICARE, OTHER, MEDICAID, SELFPAY | PROVIDERS: PCP Family Medicine; Visit Provider Nurse Practitioner | DX: N89.8 Other specified noninflammatory disorders of vagina (principal) | CPT/HCPCS: 87070; 87077; 87186; 87205 ==

== ENCOUNTER → 2021-06-01 12:08 | Outpatient (CLI) | payer MEDICARE, OTHER, MEDICAID, SELFPAY ==
--- NOTE | 2021-06-01 12:12 | DI.US.S_ITS ---
PROCEDURE: US ABDOMEN LIMITED INDICATIONS: LLQ PAIN; POSSIBLE HERNIA TECHNIQUE: Real-time focused scanning was performed of the inguinal region, with image documentation. COMPARISON: [facility], , US ABDOMEN COMPLETE, 03/05/2019, 11:00. FINDINGS: No appreciable hernia or mass. IMPRESSION: No significant abnormality. Dictated by: Samir Brown M.D. on 06/01/2021 at 13:06 Approved by: Samir Brown M.D. on 06/01/2021 at 13:07
== END ==
PROVIDERS: PCP Family Medicine; Referring Provider Nurse Practitioner; Visit Provider Nurse Practitioner
DX: R10.814 Left lower quadrant abdominal tenderness (principal)
CPT/HCPCS: 76705

== ENCOUNTER → 2021-07-13 16:23 | Outpatient (CLI) | payer MEDICARE, OTHER, MEDICAID, SELFPAY ==
[2021-07-13 16:56] LABS: Hemoglobin A1C% w Est Avg Glu 9.6 % (4.0-6.0)
== END ==
PROVIDERS: PCP Family Medicine; Referring Provider Family Medicine; Visit Provider Family Medicine
DX: E11.40 Type 2 diabetes mellitus with diabetic neuropathy, unspecified (principal); E11.65 Type 2 diabetes mellitus with hyperglycemia
CPT/HCPCS: 36415; 83036

== ENCOUNTER → 2021-07-24 16:36 | Outpatient (CLI) | payer MEDICARE, OTHER, MEDICAID, SELFPAY | PROVIDERS: PCP Family Medicine; Visit Provider Physician Assistant | DX: R30.0 Dysuria (principal); N98.9 Complication associated with artificial fertilization, unspecified | CPT/HCPCS: 87086; 87210 ==

== ENCOUNTER 2021-07-25 14:30 | Outpatient (RCR) | payer MEDICARE, OTHER, MEDICAID, SELFPAY ==
--- NOTE | 2021-03-21 17:30 | PT.OPPOC ---
Physical, Occupational & Speech Therapy At [facility] Current Diagnoses Chondromalacia patellae, left knee (03/21/21) Other disorders of patella, left knee (03/21/21) Pain in left knee (03/21/21) Pain in left leg (03/21/21) Visit Care Team Role Provider Type Wilian Booth MD Attending Provider Physician Primary Care Provider Referring Provider Specialty: Family Practice Address: [address] [place] [address], [facility] Email: [email or web address] Plan Of Care PT-OP-T Assessment and Plan Start: 03/21/21 17:32 Freq: Status: Active Protocol: Document 03/21/21 16:45 [facility] (Rec: 03/21/21 17:54 [facility] [id number]) Physical Therapy Assessment Rehab Potential Rehabilitation Potential Good Evaluation Complexity Number of Personal Factors/Comorbidities 3 or More Number of Body Systems Impaired 4 or More Clinical Presentation at Evaluation Stable Impairments Impairments Activity Tolerance,Functional Activities,Functional Mobility ,Pain,ROM,Strength Goals Two Impairment Pt ambulates with antalgic gait using cane Group Home Goal (LTG) Pt to demonstrate ability to ambulate 1000' during a 6 MWT without an assistive device with no increased pain LTG Duration 05/16/21 One Impairment Pt does not have an appropriate home exercise program Short Term Goal (STG) Pt to be independent and compliant with an appropriate HEP STG Duration 04/21/21 Assessment Summary Assessment Pt presents with signs and symptoms consistent with referring diagnosis of left knee osteoarthritis, as well as potential patellar tracking dysfunction. Pt shows fairly good strength overall, positive patella grind test, decreased medial movement of patella during knee extension. Pt should benefit from skilled therapy focusing on quad/VMO strengthening, patellar mobility, joint mobilization, knee ROM, and pain-control. Physical Therapy Plan Frequency and Duration Frequency of Treatment 2x/Week Duration of Treatment 8 weeks Plan of Care Start Date 03/21/21 Plan of Care End Date 05/16/21 Therapeutic Interventions Therapeutic Interventions Home Exercise Program,Joint Mobilizations,Manual Therapy, Neuromuscular Re-education, Patient/Caregiver Education, Self-Care/Home Management,Soft Tissue Mobilization, Therapeutic Activities, Therapeutic Exercises Modalities Cold Pack/Ice Massage,Electric Stimulation,Hot Packs, Ultrasound Next Visit Focus/Plan Next Note Type Treatment Note Next Visit Plan Knee ROM, Joint mobility, Quad /VMO strengthening Plan of Care Dates Plan of Care Start Date 03/21/21 Plan of Care End Date 05/16/21 Electronically Signed by: Dion Riggins, PT 03/22/21 0944 Please Sign and Return: I have reviewed this Plan of Care and certify that the skilled therapy services above are required to meet the patient?s needs. Physician Signature Date Printed Name and Credentials Clinical Instructor Signature Printed Name and Credentials
--- NOTE | 2021-03-21 17:30 | PT.OIE ---
Current Diagnoses Chondromalacia patellae, left knee (03/21/21) Other disorders of patella, left knee (03/21/21) Pain in left knee (03/21/21) Pain in left leg (03/21/21) Past Medical History (Last Reviewed 02/19/21 @ 19:18 by Yoni Dockery DO) Abnormal chest xray (~2002) Abscess of right groin Acne (~2004) Anemia Ankle pain (~2012) Asthma Asthma (~1997) Behaviorally induced insufficient sleep syndrome Carpal tunnel syndrome (~1996) Chest pain Controlled type 2 diabetes mellitus (08/02/15) Diabetes mellitus DKA, type 1 Eczema (~1997) Edema Encounter for routine gynecological examination with Papanicolaou smear of cervix Encounter for well woman exam with abnormal findings Foot pain (~2012) Fractures (~1987) Gastric ulcer Headache Left arm pain Left knee sprain Leg injury (~2014) Lipoma Lower back pain Mastodynia Morbid obesity with body mass index of 40.0-49.9 Obstructive sleep apnea of adult Right hip pain Sarcoidosis (~2004) Shoulder pain (~2001) Sore throat (10/07/15) Upper respiratory infection Uterine cancer Vision disorder Past Surgical History (Last Reviewed 11/16/20 @ 09:02 by HEMA Geronimo) Anesthesia History of carpal tunnel repair Status post biopsy Status post biopsy Status post colonoscopy Status post hemorrhoidectomy Status post hysterectomy Visit Care Team Role Provider Type Wilian Booth MD Attending Provider Physician Primary Care Provider Referring Provider Specialty: Family Practice Address: [address] [place] [address], [facility] Email: [email or web address] Physical Therapy Initial Evaluation PT-OP-A Visit Information Start: 03/21/21 17:32 Freq: Status: Active Protocol: Document 03/21/21 16:45 [facility] (Rec: 03/21/21 17:44 [facility] [id number]) Out-Patient Physical Therapy Visit Information Visit Information Visit Type Initial Evaluation Visit Start Time 16:45 Visit Stop Time 17:20 Total Visit Minutes 35 Visit Number 1 Number of WORKERS COMPENSATION SPECIALIST Visits 0 Evaluation Information Evaluation Date 03/21/21 PT-OP-B Current Condition Start: 03/21/21 17:32 Freq: Status: Active Protocol: Document 03/21/21 16:45 [facility] (Rec: 03/21/21 17:44 [facility] [id number]) Current Condition History of Current Condition Onset Date 02/06/21 Current Complaints Left knee pain, difficulty walking History of Current Condition Pt is a 60 year old female presenting with a 1.5 month history of left knee pain. Pt reports she was rushing to get to her flight to [facility] on , had to take her insulin, injected herself in her left thigh, and then drove to the airport. During her flight, she noticed worsening leg pain , and by the time she landed, couldn't put any weight on it, and had to have a wheelchair take her through the airport. Pt tried to walk it off, however was eventually taken to an urgent care clinic, who then sent her to the ER for CVT testing. Testing was negative, as was retesting when she returned to [place] . Pt notes she then saw her PCP, got an x-ray, and saw an Ortho, who gave her an injection, which has started it feeling a bit better, but she still requires a cane to get around. 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 Prior Treatments and Tests Left knee X-ray:IMPRESSION: Moderate tricompartmental osteoarthritis. No fracture or dislocation. Small to moderate joint effusion. Per: Irvin Roberts M.D. on 02/23/2021 Treatment Goals Patient/Caregiver Goals Improve left knee pain and mobility PT-OP-C Subjective Start: 03/21/21 17:32 Freq: Status: Active Protocol: Document 03/21/21 16:45 [facility] (Rec: 03/22/21 09:43 [facility] [id number]) OP-PT Subjective Patient Comments Patient Comments I think my knee needs a workout on the bike, get it stretched out. Patient Reported Progress Same Patient Questionnaires Lower Extremity Functional Scale LEFS Score 20/80 LEFS Impairment 60 to 79% Impaired (Score 17- 31) OP-PT Pain Assessment Pain Assessment Grid Paper Pain Assessment Grid Completed Yes Location Left Knee Intensity 9 Scale Used Numeric (0 - 10) PT-OP-F Manual Assessment Start: 03/21/21 17:32 Freq: Status: Active Protocol: Document 03/21/21 16:45 [facility] (Rec: 03/22/21 09:43 [facility] [id number]) Manual Assessments Joint Mobility Assessment Joint Mobility Assessment Moderate patella grinding with left knee movement PT-OP-K Range of Motion Start: 03/21/21 17:32 Freq: Status: Active Protocol: Document 03/21/21 16:45 [facility] (Rec: 03/22/21 09:43 [facility] [id number]) Knee Goniometric Range of Motion Knee Right Patient Position Sitting Flexion Active (degrees) 121 Extension Active (degrees) 4 Left Patient Position Sitting Flexion Active (degrees) 114 Extension Active (degrees) 12 PT-OP-L Special Tests Start: 03/21/21 17:32 Freq: Status: Active Protocol: Document 03/21/21 16:45 [facility] (Rec: 03/22/21 09:43 [facility] [id number]) Special Tests Knee Special Tests Patella Tap Test Results Negative Bounce Home Test Results Negative Varus- 0 Degrees Test Results Negative Valgus- 25 Degrees Test Results Negative Magdiel Test Test Results Negative Patellar Grind Test Test Results Positive Left Apley's Compression Test Results It feels better. PT-OP-M Strength Start: 03/21/21 17:32 Freq: Status: Active Protocol: Document 03/21/21 16:45 [facility] (Rec: 03/22/21 09:43 [facility] [id number]) Knee Strength Knee Manual Muscle Testing Left Flexion (S2) 4 Good Extension (L3) 4 Good Right Flexion (S2) 4+ Good+ Extension (L3) 4+ Good+ PT-OP-Q Treatments Start: 03/21/21 17:32 Freq: Status: Active Protocol: Document 03/21/21 16:45 [facility] (Rec: 03/21/21 17:44 [facility] [id number]) Therapeutic Exercises Supine Exercises 1 Supine Exercise Name SLR /c ER Side left PT-OP-T Assessment and Plan Start: 03/21/21 17:32 Freq: Status: Active Protocol: Document 03/21/21 16:45 [facility] (Rec: 03/21/21 17:54 [facility] [id number]) Physical Therapy Assessment Rehab Potential Rehabilitation Potential Good Evaluation Complexity Number of Personal Factors/Comorbidities 3 or More Number of Body Systems Impaired 4 or More Clinical Presentation at Evaluation Stable Impairments Impairments Activity Tolerance,Functional Activities,Functional Mobility ,Pain,ROM,Strength Goals Two Impairment Pt ambulates with antalgic gait using cane Correction Goal (LTG) Pt to demonstrate ability to ambulate 1000' during a 6 MWT without an assistive device with no increased pain LTG Duration 05/16/21 One Impairment Pt does not have an appropriate home exercise program Short Term Goal (STG) Pt to be independent and compliant with an appropriate HEP STG Duration 04/21/21 Assessment Summary Assessment Pt presents with signs and symptoms consistent with referring diagnosis of left knee osteoarthritis, as well as potential patellar tracking dysfunction. Pt shows fairly good strength overall, positive patella grind test, decreased medial movement of patella during knee extension. Pt should benefit from skilled therapy focusing on quad/VMO strengthening, patellar mobility, joint mobilization, knee ROM, and pain-control. Physical Therapy Plan Frequency and Duration Frequency of Treatment 2x/Week Duration of Treatment 8 weeks Plan of Care Start Date 03/21/21 Plan of Care End Date 05/16/21 Therapeutic Interventions Therapeutic Interventions Home Exercise Program,Joint Mobilizations,Manual Therapy, Neuromuscular Re-education, Patient/Caregiver Education, Self-Care/Home Management,Soft Tissue Mobilization, Therapeutic Activities, Therapeutic Exercises Modalities Cold Pack/Ice Massage,Electric Stimulation,Hot Packs, Ultrasound Next Visit Focus/Plan Next Note Type Treatment Note Next Visit Plan Knee ROM, Joint mobility, Quad /VMO strengthening
--- NOTE | 2021-03-21 17:30 | PT.OPPOC ---
Physical, Occupational & Speech Therapy At [facility] Current Diagnoses Chondromalacia patellae, left knee (03/21/21) Other disorders of patella, left knee (03/21/21) Pain in left knee (03/21/21) Pain in left leg (03/21/21) Visit Care Team Role Provider Type Wilian Booth MD Attending Provider Physician Primary Care Provider Referring Provider Specialty: Family Practice Address: [address] [place] [address], [facility] Email: [email or web address] Plan Of Care PT-OP-T Assessment and Plan Start: 03/21/21 17:32 Freq: Status: Active Protocol: Document 03/21/21 16:45 [facility] (Rec: 03/21/21 17:54 [facility] [id number]) Physical Therapy Assessment Rehab Potential Rehabilitation Potential Good Evaluation Complexity Number of Personal Factors/Comorbidities 3 or More Number of Body Systems Impaired 4 or More Clinical Presentation at Evaluation Stable Impairments Impairments Activity Tolerance,Functional Activities,Functional Mobility ,Pain,ROM,Strength Goals Two Impairment Pt ambulates with antalgic gait using cane Fpc Goal (LTG) Pt to demonstrate ability to ambulate 1000' during a 6 MWT without an assistive device with no increased pain LTG Duration 05/16/21 One Impairment Pt does not have an appropriate home exercise program Short Term Goal (STG) Pt to be independent and compliant with an appropriate HEP STG Duration 04/21/21 Assessment Summary Assessment Pt presents with signs and symptoms consistent with referring diagnosis of left knee osteoarthritis, as well as potential patellar tracking dysfunction. Pt shows fairly good strength overall, positive patella grind test, decreased medial movement of patella during knee extension. Pt should benefit from skilled therapy focusing on quad/VMO strengthening, patellar mobility, joint mobilization, knee ROM, and pain-control. Physical Therapy Plan Frequency and Duration Frequency of Treatment 2x/Week Duration of Treatment 8 weeks Plan of Care Start Date 03/21/21 Plan of Care End Date 05/16/21 Therapeutic Interventions Therapeutic Interventions Home Exercise Program,Joint Mobilizations,Manual Therapy, Neuromuscular Re-education, Patient/Caregiver Education, Self-Care/Home Management,Soft Tissue Mobilization, Therapeutic Activities, Therapeutic Exercises Modalities Cold Pack/Ice Massage,Electric Stimulation,Hot Packs, Ultrasound Next Visit Focus/Plan Next Note Type Treatment Note Next Visit Plan Knee ROM, Joint mobility, Quad /VMO strengthening Plan of Care Dates Plan of Care Start Date 03/21/21 Plan of Care End Date 05/16/21 Electronically Signed by: Dion Riggins, PT 03/22/21 0945 Please Sign and Return: I have reviewed this Plan of Care and certify that the skilled therapy services above are required to meet the patient?s needs. Physician Signature Date Printed Name and Credentials Clinical Instructor Signature Printed Name and Credentials
--- NOTE | 2021-03-28 15:14 | PT.OTN ---
Current Diagnoses Chondromalacia patellae, left knee (03/28/21) Other disorders of patella, left knee (03/28/21) Pain in left knee (03/28/21) Pain in left leg (03/28/21) Physical Therapy Treatment Note PT-OP-A Visit Information Start: 03/21/21 17:32 Freq: Status: Active Protocol: Document 03/28/21 14:30 DCW (Rec: 03/28/21 15:14 DCW [id number]) Out-Patient Physical Therapy Visit Information Visit Information Visit Type Treatment Note Visit Start Time 14:30 Visit Stop Time 15:20 Total Visit Minutes 50 Visit Number 2 Number of HOUSEKEEPER HEAD Visits 0 Evaluation Information Evaluation Date 03/21/21 PT-OP-B Current Condition Start: 03/21/21 17:32 Freq: Status: Active Protocol: Document 03/21/21 16:45 DCW (Rec: 03/21/21 17:44 DCW [id number]) Current Condition History of Current Condition Onset Date 02/06/21 Current Complaints Left knee pain, difficulty walking History of Current Condition Pt is a 60 year old female presenting with a 1.5 month history of left knee pain. Pt reports she was rushing to get to her flight to [facility] on , had to take her insulin, injected herself in her left thigh, and then drove to the airport. During her flight, she noticed worsening leg pain , and by the time she landed, couldn't put any weight on it, and had to have a wheelchair take her through the airport. Pt tried to walk it off, however was eventually taken to an urgent care clinic, who then sent her to the ER for CVT testing. Testing was negative, as was retesting when she returned to [place] . Pt notes she then saw her PCP, got an x-ray, and saw an Ortho, who gave her an injection, which has started it feeling a bit better, but she still requires a cane to get around. 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 Prior Treatments and Tests Left knee X-ray:IMPRESSION: Moderate tricompartmental osteoarthritis. No fracture or dislocation. Small to moderate joint effusion. Per: Irvin Roberts M.D. on 02/23/2021 Treatment Goals Patient/Caregiver Goals Improve left knee pain and mobility PT-OP-C Subjective Start: 03/21/21 17:32 Freq: Status: Active Protocol: Document 03/28/21 14:30 DCW (Rec: 03/28/21 15:14 DCW [id number]) OP-PT Subjective Patient Comments Patient Comments Pt notes knee is okay today. PT-OP-F Manual Assessment Start: 03/21/21 17:32 Freq: Status: Active Protocol: Document 03/21/21 16:45 DCW (Rec: 03/22/21 09:43 DCW [id number]) Manual Assessments Joint Mobility Assessment Joint Mobility Assessment Moderate patella grinding with left knee movement PT-OP-K Range of Motion Start: 03/21/21 17:32 Freq: Status: Active Protocol: Document 03/21/21 16:45 DCW (Rec: 03/22/21 09:43 DCW [id number]) Knee Goniometric Range of Motion Knee Right Patient Position Sitting Flexion Active (degrees) 121 Extension Active (degrees) 4 Left Patient Position Sitting Flexion Active (degrees) 114 Extension Active (degrees) 12 PT-OP-L Special Tests Start: 03/21/21 17:32 Freq: Status: Active Protocol: Document 03/21/21 16:45 DCW (Rec: 03/22/21 09:43 DCW [id number]) Special Tests Knee Special Tests Patella Tap Test Results Negative Bounce Home Test Results Negative Varus- 0 Degrees Test Results Negative Valgus- 25 Degrees Test Results Negative Magdiel Test Test Results Negative Patellar Grind Test Test Results Positive Left Apley's Compression Test Results It feels better. PT-OP-M Strength Start: 03/21/21 17:32 Freq: Status: Active Protocol: Document 03/21/21 16:45 DCW (Rec: 03/22/21 09:43 DCW [id number]) Knee Strength Knee Manual Muscle Testing Left Flexion (S2) 4 Good Extension (L3) 4 Good Right Flexion (S2) 4+ Good+ Extension (L3) 4+ Good+ PT-OP-Q Treatments Start: 03/21/21 17:32 Freq: Status: Active Protocol: Document 03/28/21 14:30 DCW (Rec: 08/23/21 15:14 DCW [id number]) Cardio Equipment Recumbent Bicycle Duration (Minutes) 5 Resistance 1 Seat Position 10 Gym Equipment Shuttle Recovery Bilateral Squats Details /c Adductor ball squeeze Resistance 100# Shuttle Recovery Platform Stable Reps/Time x15 Unilateral Squats Resistance 50# Shuttle Recovery Platform Stable Reps/Time x10 Therapeutic Exercises Supine Exercises 3 Supine Exercise Name SAQ Side bilateral Resistance 5# 2 Supine Exercise Name Bridging Comments Add ball squeeze 1 Supine Exercise Name SLR /c ER Side left PT-OP-R Modalities Start: 03/21/21 17:32 Freq: Status: Active Protocol: Document 03/28/21 14:30 DCW (Rec: 03/28/21 15:14 DCW [id number]) Electric Stimulation Electric Stimulation Interferential Current (IFC) Body Location L knee Duration (Minutes) 15 Intensity 23 Cycle Continuous Patient Position Prone Combined With Heat/Cold Hot Pack PT-OP-T Assessment and Plan Start: 03/21/21 17:32 Freq: Status: Active Protocol: Document 03/28/21 14:30 DCW (Rec: 03/28/21 15:14 DCW [id number]) Physical Therapy Assessment Impairments Impairments Activity Tolerance,Functional Activities,Functional Mobility ,Pain,ROM,Strength Goals Two Impairment Pt ambulates with antalgic gait using cane Automation Test Engineer Goal (LTG) Pt to demonstrate ability to ambulate 1000' during a 6 MWT without an assistive device with no increased pain LTG Duration 05/16/21 One Impairment Pt does not have an appropriate home exercise program Short Term Goal (STG) Pt to be independent and compliant with an appropriate HEP STG Duration 04/21/21 Assessment Summary Assessment Pt tolerated treatment very well today, noted significant improvement in pain levels and mobility pre- vs post- PT session Physical Therapy Plan Frequency and Duration Frequency of Treatment 2x/Week Duration of Treatment 8 weeks Plan of Care Start Date 03/21/21 Plan of Care End Date 05/16/21 Therapeutic Interventions Therapeutic Interventions Home Exercise Program,Joint Mobilizations,Manual Therapy, Neuromuscular Re-education, Patient/Caregiver Education, Self-Care/Home Management,Soft Tissue Mobilization, Therapeutic Activities, Therapeutic Exercises Modalities Cold Pack/Ice Massage,Electric Stimulation,Hot Packs, Ultrasound Next Visit Focus/Plan Next Note Type Treatment Note Next Visit Plan Knee ROM, Joint mobility, Quad /VMO strengthening
--- NOTE | 2021-04-04 16:04 | PT.OTN ---
Current Diagnoses Chondromalacia patellae, left knee (04/04/21) Other disorders of patella, left knee (04/04/21) Pain in left knee (04/04/21) Pain in left leg (04/04/21) Physical Therapy Treatment Note PT-OP-A Visit Information Start: 03/21/21 17:32 Freq: Status: Active Protocol: Document 04/04/21 15:15 DCW (Rec: 04/04/21 15:53 DCW [id number]) Out-Patient Physical Therapy Visit Information Visit Information Visit Type Treatment Note Visit Start Time 15:15 Visit Stop Time 16:00 Total Visit Minutes 45 Visit Number 3 Number of RISK MANAGEMENT PROFESSIONAL Visits 0 Evaluation Information Evaluation Date 03/21/21 PT-OP-B Current Condition Start: 03/21/21 17:32 Freq: Status: Active Protocol: Document 03/21/21 16:45 DCW (Rec: 03/21/21 17:44 DCW [id number]) Current Condition History of Current Condition Onset Date 02/06/21 Current Complaints Left knee pain, difficulty walking History of Current Condition Pt is a 60 year old female presenting with a 1.5 month history of left knee pain. Pt reports she was rushing to get to her flight to [facility] on , had to take her insulin, injected herself in her left thigh, and then drove to the airport. During her flight, she noticed worsening leg pain , and by the time she landed, couldn't put any weight on it, and had to have a wheelchair take her through the airport. Pt tried to walk it off, however was eventually taken to an urgent care clinic, who then sent her to the ER for CVT testing. Testing was negative, as was retesting when she returned to [place] . Pt notes she then saw her PCP, got an x-ray, and saw an Ortho, who gave her an injection, which has started it feeling a bit better, but she still requires a cane to get around. 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 Prior Treatments and Tests Left knee X-ray:IMPRESSION: Moderate tricompartmental osteoarthritis. No fracture or dislocation. Small to moderate joint effusion. Per: Irvin Roberts M.D. on 02/23/2021 Treatment Goals Patient/Caregiver Goals Improve left knee pain and mobility PT-OP-C Subjective Start: 03/21/21 17:32 Freq: Status: Active Protocol: Document 04/04/21 15:15 DCW (Rec: 04/04/21 15:53 DCW [id number]) OP-PT Subjective Patient Comments Patient Comments Pt reports her knee has felt much better since her last visit, but is worried that she just can't build much muscle in her leg. PT-OP-F Manual Assessment Start: 03/21/21 17:32 Freq: Status: Active Protocol: Document 03/21/21 16:45 DCW (Rec: 03/22/21 09:43 DCW [id number]) Manual Assessments Joint Mobility Assessment Joint Mobility Assessment Moderate patella grinding with left knee movement PT-OP-K Range of Motion Start: 03/21/21 17:32 Freq: Status: Active Protocol: Document 03/21/21 16:45 DCW (Rec: 03/22/21 09:43 DCW [id number]) Knee Goniometric Range of Motion Knee Right Patient Position Sitting Flexion Active (degrees) 121 Extension Active (degrees) 4 Left Patient Position Sitting Flexion Active (degrees) 114 Extension Active (degrees) 12 PT-OP-L Special Tests Start: 03/21/21 17:32 Freq: Status: Active Protocol: Document 03/21/21 16:45 DCW (Rec: 03/22/21 09:43 DCW [id number]) Special Tests Knee Special Tests Patella Tap Test Results Negative Bounce Home Test Results Negative Varus- 0 Degrees Test Results Negative Valgus- 25 Degrees Test Results Negative Magdiel Test Test Results Negative Patellar Grind Test Test Results Positive Left Apley's Compression Test Results It feels better. PT-OP-M Strength Start: 03/21/21 17:32 Freq: Status: Active Protocol: Document 03/21/21 16:45 DCW (Rec: 03/22/21 09:43 DCW [id number]) Knee Strength Knee Manual Muscle Testing Left Flexion (S2) 4 Good Extension (L3) 4 Good Right Flexion (S2) 4+ Good+ Extension (L3) 4+ Good+ PT-OP-Q Treatments Start: 03/21/21 17:32 Freq: Status: Active Protocol: Document 04/04/21 15:15 DCW (Rec: 04/04/21 15:53 DCW [id number]) Cardio Equipment Recumbent Bicycle Duration (Minutes) 5 Resistance 3 Seat Position 10 Gym Equipment Shuttle Recovery Bilateral Squats Details /c Adductor ball squeeze Resistance 100# Shuttle Recovery Platform Stable Reps/Time x20 Unilateral Squats Resistance 50# Shuttle Recovery Platform Stable Reps/Time x10 Therapeutic Exercises Supine Exercises 3 Supine Exercise Name SAQ Side bilateral Resistance 5# 2 Supine Exercise Name Bridging Comments Add ball squeeze 1 Supine Exercise Name SLR /c ER Side left PT-OP-R Modalities Start: 03/21/21 17:32 Freq: Status: Active Protocol: Document 04/04/21 15:15 DCW (Rec: 04/04/21 15:53 DCW [id number]) Electric Stimulation Electric Stimulation Interferential Current (IFC) Body Location L knee Duration (Minutes) 15 Intensity 23 Cycle Continuous Patient Position Prone Combined With Heat/Cold Hot Pack PT-OP-T Assessment and Plan Start: 03/21/21 17:32 Freq: Status: Active Protocol: Document 04/04/21 15:15 DCW (Rec: 04/04/21 15:53 DCW [id number]) Physical Therapy Assessment Impairments Impairments Activity Tolerance,Functional Activities,Functional Mobility ,Pain,ROM,Strength Goals Two Impairment Pt ambulates with antalgic gait using cane Correction Goal (LTG) Pt to demonstrate ability to ambulate 1000' during a 6 MWT without an assistive device with no increased pain LTG Duration 05/16/21 One Impairment Pt does not have an appropriate home exercise program Short Term Goal (STG) Pt to be independent and compliant with an appropriate HEP STG Duration 04/21/21 Assessment Summary Assessment Pt feeling good overall following treatment, feels the e-stim is very helpful with pain control. Physical Therapy Plan Frequency and Duration Frequency of Treatment 2x/Week Duration of Treatment 8 weeks Plan of Care Start Date 03/21/21 Plan of Care End Date 05/16/21 Therapeutic Interventions Therapeutic Interventions Home Exercise Program,Joint Mobilizations,Manual Therapy, Neuromuscular Re-education, Patient/Caregiver Education, Self-Care/Home Management,Soft Tissue Mobilization, Therapeutic Activities, Therapeutic Exercises Modalities Cold Pack/Ice Massage,Electric Stimulation,Hot Packs, Ultrasound Next Visit Focus/Plan Next Note Type Treatment Note Next Visit Plan Knee ROM, Joint mobility, Quad /VMO strengthening
--- NOTE | 2021-04-29 16:41 | PT.OTN ---
Current Diagnoses Chondromalacia patellae, left knee (04/29/21) Other disorders of patella, left knee (04/29/21) Pain in left knee (04/29/21) Pain in left leg (04/29/21) Physical Therapy Treatment Note PT-OP-A Visit Information Start: 03/21/21 17:32 Freq: Status: Active Protocol: Document 04/29/21 16:00 DCW (Rec: 04/29/21 16:41 DCW [id number]) Out-Patient Physical Therapy Visit Information Visit Information Visit Type Treatment Note Visit Start Time 16:00 Visit Stop Time 16:45 Total Visit Minutes 45 Visit Number 4 Number of INDUSTRIAL ENGINEERING MANAGER Visits 0 Evaluation Information Evaluation Date 03/21/21 PT-OP-B Current Condition Start: 03/21/21 17:32 Freq: Status: Active Protocol: Document 03/21/21 16:45 DCW (Rec: 03/21/21 17:44 DCW [id number]) Current Condition History of Current Condition Onset Date 02/06/21 Current Complaints Left knee pain, difficulty walking History of Current Condition Pt is a 60 year old female presenting with a 1.5 month history of left knee pain. Pt reports she was rushing to get to her flight to [facility] on , had to take her insulin, injected herself in her left thigh, and then drove to the airport. During her flight, she noticed worsening leg pain , and by the time she landed, couldn't put any weight on it, and had to have a wheelchair take her through the airport. Pt tried to walk it off, however was eventually taken to an urgent care clinic, who then sent her to the ER for CVT testing. Testing was negative, as was retesting when she returned to [place] . Pt notes she then saw her PCP, got an x-ray, and saw an Ortho, who gave her an injection, which has started it feeling a bit better, but she still requires a cane to get around. 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 Prior Treatments and Tests Left knee X-ray:IMPRESSION: Moderate tricompartmental osteoarthritis. No fracture or dislocation. Small to moderate joint effusion. Per: Irvin Roberts M.D. on 02/23/2021 Treatment Goals Patient/Caregiver Goals Improve left knee pain and mobility PT-OP-C Subjective Start: 03/21/21 17:32 Freq: Status: Active Protocol: Document 04/29/21 16:00 DCW (Rec: 04/29/21 16:41 DCW [id number]) OP-PT Subjective Patient Comments Patient Comments Pt returns after quarantining following her 's diagnosis of Covid. Pt admits she did pretty much nothing since I was here last. PT-OP-F Manual Assessment Start: 03/21/21 17:32 Freq: Status: Active Protocol: Document 03/21/21 16:45 DCW (Rec: 03/22/21 09:43 DCW [id number]) Manual Assessments Joint Mobility Assessment Joint Mobility Assessment Moderate patella grinding with left knee movement PT-OP-K Range of Motion Start: 03/21/21 17:32 Freq: Status: Active Protocol: Document 03/21/21 16:45 DCW (Rec: 03/22/21 09:43 DCW [id number]) Knee Goniometric Range of Motion Knee Right Patient Position Sitting Flexion Active (degrees) 121 Extension Active (degrees) 4 Left Patient Position Sitting Flexion Active (degrees) 114 Extension Active (degrees) 12 PT-OP-L Special Tests Start: 03/21/21 17:32 Freq: Status: Active Protocol: Document 03/21/21 16:45 DCW (Rec: 03/22/21 09:43 DCW [id number]) Special Tests Knee Special Tests Patella Tap Test Results Negative Bounce Home Test Results Negative Varus- 0 Degrees Test Results Negative Valgus- 25 Degrees Test Results Negative Magdiel Test Test Results Negative Patellar Grind Test Test Results Positive Left Apley's Compression Test Results It feels better. PT-OP-M Strength Start: 03/21/21 17:32 Freq: Status: Active Protocol: Document 03/21/21 16:45 DCW (Rec: 03/22/21 09:43 DCW [id number]) Knee Strength Knee Manual Muscle Testing Left Flexion (S2) 4 Good Extension (L3) 4 Good Right Flexion (S2) 4+ Good+ Extension (L3) 4+ Good+ PT-OP-Q Treatments Start: 03/21/21 17:32 Freq: Status: Active Protocol: Document 04/29/21 16:00 DCW (Rec: 04/29/21 16:41 DCW [id number]) Cardio Equipment Recumbent Bicycle Duration (Minutes) 5 Resistance 3 Seat Position 10 Gym Equipment Shuttle Recovery Bilateral Squats Details /c Adductor ball squeeze Resistance 100# Shuttle Recovery Platform Stable Reps/Time x20 Unilateral Squats Resistance 62# Shuttle Recovery Platform Stable Reps/Time x10 Therapeutic Exercises Supine Exercises 4 Supine Exercise Name Lower trunk rotations 3 Supine Exercise Name SAQ Side bilateral Resistance 5# 2 Supine Exercise Name Bridging Comments Add ball squeeze 1 Supine Exercise Name SLR /c ER Side left PT-OP-R Modalities Start: 03/21/21 17:32 Freq: Status: Active Protocol: Document 04/29/21 16:00 DCW (Rec: 04/29/21 16:41 DCW [id number]) Electric Stimulation Electric Stimulation Interferential Current (IFC) Body Location L knee Duration (Minutes) 15 Intensity 41 Cycle Continuous Patient Position Prone Combined With Heat/Cold Hot Pack PT-OP-T Assessment and Plan Start: 03/21/21 17:32 Freq: Status: Active Protocol: Document 04/29/21 16:00 DCW (Rec: 04/29/21 16:41 DCW [id number]) Physical Therapy Assessment Impairments Impairments Activity Tolerance,Functional Activities,Functional Mobility ,Pain,ROM,Strength Goals Two Impairment Pt ambulates with antalgic gait using cane Mcfp Goal (LTG) Pt to demonstrate ability to ambulate 1000' during a 6 MWT without an assistive device with no increased pain LTG Duration 05/16/21 One Impairment Pt does not have an appropriate home exercise program Short Term Goal (STG) Pt to be independent and compliant with an appropriate HEP STG Duration 04/21/21 Assessment Summary Assessment Pt doing fairly well, has declined somewhat since her last PT session 25 days ago after a long quarantine due to her 's Covid diagnosis . Physical Therapy Plan Frequency and Duration Frequency of Treatment 2x/Week Duration of Treatment 8 weeks Plan of Care Start Date 03/21/21 Plan of Care End Date 05/16/21 Therapeutic Interventions Therapeutic Interventions Home Exercise Program,Joint Mobilizations,Manual Therapy, Neuromuscular Re-education, Patient/Caregiver Education, Self-Care/Home Management,Soft Tissue Mobilization, Therapeutic Activities, Therapeutic Exercises Modalities Cold Pack/Ice Massage,Electric Stimulation,Hot Packs, Ultrasound Next Visit Focus/Plan Next Note Type Treatment Note Next Visit Plan Knee ROM, Joint mobility, Quad /VMO strengthening
--- NOTE | 2021-05-03 16:41 | PT.OTN ---
Current Diagnoses Chondromalacia patellae, left knee (05/03/21) Other disorders of patella, left knee (05/03/21) Pain in left knee (05/03/21) Pain in left leg (05/03/21) Physical Therapy Treatment Note PT-OP-A Visit Information Start: 03/21/21 17:32 Freq: Status: Active Protocol: Document 05/03/21 16:00 DCW (Rec: 05/03/21 16:39 DCW [id number]) Out-Patient Physical Therapy Visit Information Visit Information Visit Type Treatment Note Visit Start Time 16:00 Visit Stop Time 16:45 Total Visit Minutes 45 Visit Number 5 Number of IMAGE ASSEMBLER Visits 0 Evaluation Information Evaluation Date 03/21/21 PT-OP-B Current Condition Start: 03/21/21 17:32 Freq: Status: Active Protocol: Document 03/21/21 16:45 DCW (Rec: 03/21/21 17:44 DCW [id number]) Current Condition History of Current Condition Onset Date 02/06/21 Current Complaints Left knee pain, difficulty walking History of Current Condition Pt is a 60 year old female presenting with a 1.5 month history of left knee pain. Pt reports she was rushing to get to her flight to [facility] on , had to take her insulin, injected herself in her left thigh, and then drove to the airport. During her flight, she noticed worsening leg pain , and by the time she landed, couldn't put any weight on it, and had to have a wheelchair take her through the airport. Pt tried to walk it off, however was eventually taken to an urgent care clinic, who then sent her to the ER for CVT testing. Testing was negative, as was retesting when she returned to [place] . Pt notes she then saw her PCP, got an x-ray, and saw an Ortho, who gave her an injection, which has started it feeling a bit better, but she still requires a cane to get around. 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 Prior Treatments and Tests Left knee X-ray:IMPRESSION: Moderate tricompartmental osteoarthritis. No fracture or dislocation. Small to moderate joint effusion. Per: Irvin Roberts M.D. on 02/23/2021 Treatment Goals Patient/Caregiver Goals Improve left knee pain and mobility PT-OP-C Subjective Start: 03/21/21 17:32 Freq: Status: Active Protocol: Document 05/03/21 16:00 DCW (Rec: 05/03/21 16:39 DCW [id number]) OP-PT Subjective Patient Comments Patient Comments Pt notes that with drugs, the knee feels pretty good. PT-OP-F Manual Assessment Start: 03/21/21 17:32 Freq: Status: Active Protocol: Document 03/21/21 16:45 DCW (Rec: 03/22/21 09:43 DCW [id number]) Manual Assessments Joint Mobility Assessment Joint Mobility Assessment Moderate patella grinding with left knee movement PT-OP-K Range of Motion Start: 03/21/21 17:32 Freq: Status: Active Protocol: Document 03/21/21 16:45 DCW (Rec: 03/22/21 09:43 DCW [id number]) Knee Goniometric Range of Motion Knee Right Patient Position Sitting Flexion Active (degrees) 121 Extension Active (degrees) 4 Left Patient Position Sitting Flexion Active (degrees) 114 Extension Active (degrees) 12 PT-OP-L Special Tests Start: 03/21/21 17:32 Freq: Status: Active Protocol: Document 03/21/21 16:45 DCW (Rec: 03/22/21 09:43 DCW [id number]) Special Tests Knee Special Tests Patella Tap Test Results Negative Bounce Home Test Results Negative Varus- 0 Degrees Test Results Negative Valgus- 25 Degrees Test Results Negative Magdiel Test Test Results Negative Patellar Grind Test Test Results Positive Left Apley's Compression Test Results It feels better. PT-OP-M Strength Start: 03/21/21 17:32 Freq: Status: Active Protocol: Document 03/21/21 16:45 DCW (Rec: 03/22/21 09:43 DCW [id number]) Knee Strength Knee Manual Muscle Testing Left Flexion (S2) 4 Good Extension (L3) 4 Good Right Flexion (S2) 4+ Good+ Extension (L3) 4+ Good+ PT-OP-Q Treatments Start: 03/21/21 17:32 Freq: Status: Active Protocol: Document 05/03/21 16:00 DCW (Rec: 05/03/21 16:39 DCW [id number]) Cardio Equipment Recumbent Bicycle Duration (Minutes) 5 Resistance 4 Seat Position 10 Gym Equipment Shuttle Recovery Bilateral Squats Details /c Adductor ball squeeze Resistance 100# Shuttle Recovery Platform Stable Reps/Time x20 Unilateral Squats Resistance 62# Shuttle Recovery Platform Stable Reps/Time x10 Therapeutic Exercises Supine Exercises 4 Supine Exercise Name Lower trunk rotations Equipment Used 55 cm ball 3 Supine Exercise Name SAQ Side bilateral Resistance 5# 2 Supine Exercise Name Bridging 1 Supine Exercise Name SLR /c ER Side left Resistance 5# PT-OP-R Modalities Start: 03/21/21 17:32 Freq: Status: Active Protocol: Document 05/03/21 16:00 DCW (Rec: 05/03/21 16:39 DCW [id number]) Electric Stimulation Electric Stimulation Interferential Current (IFC) Body Location L knee Duration (Minutes) 15 Intensity 48 Cycle Continuous Patient Position Prone Combined With Heat/Cold Hot Pack PT-OP-T Assessment and Plan Start: 03/21/21 17:32 Freq: Status: Active Protocol: Document 05/03/21 16:00 DCW (Rec: 05/03/21 16:39 DCW [id number]) Physical Therapy Assessment Goals Two Impairment Pt ambulates with antalgic gait using cane Penitentiary Goal (LTG) Pt to demonstrate ability to ambulate 1000' during a 6 MWT without an assistive device with no increased pain LTG Duration 05/16/21 One Impairment Pt does not have an appropriate home exercise program Short Term Goal (STG) Pt to be independent and compliant with an appropriate HEP STG Duration 04/21/21 Assessment Summary Assessment Pt doing better today than last week, feels like her knee is getting stronger. Physical Therapy Plan Frequency and Duration Frequency of Treatment 2x/Week Duration of Treatment 8 weeks Plan of Care Start Date 03/21/21 Plan of Care End Date 05/16/21 Therapeutic Interventions Therapeutic Interventions Home Exercise Program,Joint Mobilizations,Manual Therapy, Neuromuscular Re-education, Patient/Caregiver Education, Self-Care/Home Management,Soft Tissue Mobilization, Therapeutic Activities, Therapeutic Exercises Modalities Cold Pack/Ice Massage,Electric Stimulation,Hot Packs, Ultrasound Next Visit Focus/Plan Next Note Type Treatment Note Next Visit Plan Knee ROM, Joint mobility, Quad /VMO strengthening
--- NOTE | 2021-06-02 13:06 | PT-OP ANOTE ---
No show on 06/02/21
--- NOTE | 2021-06-06 16:48 | PT.OTN ---
Current Diagnoses Chondromalacia patellae, left knee (06/06/21) Other disorders of patella, left knee (06/06/21) Pain in left knee (06/06/21) Pain in left leg (06/06/21) Physical Therapy Treatment Note PT-OP-A Visit Information Start: 03/21/21 17:32 Freq: Status: Active Protocol: Document 06/06/21 16:05 DCW (Rec: 06/06/21 16:48 DCW [id number]) Out-Patient Physical Therapy Visit Information Visit Information Visit Type Progress Note Visit Start Time 16:05 Visit Stop Time 17:00 Total Visit Minutes 55 Visit Number 6 Number of JOINTER OPERATOR Visits 0 Evaluation Information Evaluation Date 03/21/21 PT-OP-B Current Condition Start: 03/21/21 17:32 Freq: Status: Active Protocol: Document 03/21/21 16:45 DCW (Rec: 03/21/21 17:44 DCW [id number]) Current Condition History of Current Condition Onset Date 02/06/21 Current Complaints Left knee pain, difficulty walking History of Current Condition Pt is a 60 year old female presenting with a 1.5 month history of left knee pain. Pt reports she was rushing to get to her flight to [facility] on , had to take her insulin, injected herself in her left thigh, and then drove to the airport. During her flight, she noticed worsening leg pain , and by the time she landed, couldn't put any weight on it, and had to have a wheelchair take her through the airport. Pt tried to walk it off, however was eventually taken to an urgent care clinic, who then sent her to the ER for CVT testing. Testing was negative, as was retesting when she returned to [place] . Pt notes she then saw her PCP, got an x-ray, and saw an Ortho, who gave her an injection, which has started it feeling a bit better, but she still requires a cane to get around. 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 Prior Treatments and Tests Left knee X-ray:IMPRESSION: Moderate tricompartmental osteoarthritis. No fracture or dislocation. Small to moderate joint effusion. Per: Irvin Roberts M.D. on 02/23/2021 Treatment Goals Patient/Caregiver Goals Improve left knee pain and mobility PT-OP-C Subjective Start: 03/21/21 17:32 Freq: Status: Active Protocol: Document 06/06/21 16:05 DCW (Rec: 06/06/21 16:48 DCW [id number]) OP-PT Subjective Patient Comments Patient Comments Pt notes her knee has been very stiff, and she has had increased soreness along lateral knee and thigh. PT-OP-F Manual Assessment Start: 03/21/21 17:32 Freq: Status: Active Protocol: Document 06/06/21 16:05 DCW (Rec: 06/06/21 16:27 DCW [id number]) Manual Assessments Soft Tissue Assessment Soft Tissue Mobility Assessment Moderate-severe tightness with Tenderness to palpation 3/4: Wincing and withdraw along left ITB and insertion. Joint Mobility Assessment Joint Mobility Assessment Moderate patella grinding with left knee movement. Poor patellar tracking. PT-OP-K Range of Motion Start: 03/21/21 17:32 Freq: Status: Active Protocol: Document 06/06/21 16:05 DCW (Rec: 06/06/21 16:27 DCW [id number]) Knee Goniometric Range of Motion Knee Right Patient Position Sitting Flexion Active (degrees) 118 Extension Active (degrees) 5 Left Patient Position Sitting Flexion Active (degrees) 113 Extension Active (degrees) 6 PT-OP-L Special Tests Start: 03/21/21 17:32 Freq: Status: Active Protocol: Document 06/06/21 16:05 DCW (Rec: 06/06/21 16:27 DCW [id number]) Special Tests Knee Special Tests Patellar Grind Test Test Results Positive Left PT-OP-M Strength Start: 03/21/21 17:32 Freq: Status: Active Protocol: Document 06/06/21 16:05 DCW (Rec: 06/06/21 16:27 DCW [id number]) Knee Strength Knee Manual Muscle Testing Left Flexion (S2) 4+ Good+ Extension (L3) 4- Good- Comments Sudden empty end feel Right Flexion (S2) 4+ Good+ Extension (L3) 4+ Good+ PT-OP-Q Treatments Start: 03/21/21 17:32 Freq: Status: Active Protocol: Document 06/06/21 16:05 DCW (Rec: 06/06/21 16:48 DCW [id number]) Cardio Equipment Recumbent Bicycle Duration (Minutes) 5 Resistance 4 Seat Position 10 Therapeutic Exercises Supine Exercises 5 Supine Exercise Name ITB stretch /c strap Side bilateral Manual Therapy Treatment Soft Tissue Mobilization 1 Body Location ITB STM Mobilization Type Strumming,Trigger Point Release PT-OP-R Modalities Start: 03/21/21 17:32 Freq: Status: Active Protocol: Document 06/06/21 16:05 DCW (Rec: 06/06/21 16:48 DCW [id number]) Electric Stimulation Electric Stimulation Interferential Current (IFC) Body Location L knee Duration (Minutes) 15 Intensity 48 Cycle Continuous Patient Position Prone Combined With Heat/Cold Hot Pack PT-OP-T Assessment and Plan Start: 03/21/21 17:32 Freq: Status: Active Protocol: Document 06/06/21 16:05 DCW (Rec: 06/06/21 16:48 DCW [id number]) Physical Therapy Assessment Impairments Impairments Activity Tolerance,Functional Activities,Functional Mobility ,Pain,ROM,Strength Goals Two Impairment Pt ambulates with antalgic gait using cane Casino Surveillance Officer Goal (LTG) Pt to demonstrate ability to ambulate 1000' during a 6 MWT without an assistive device with no increased pain LTG Duration 08/01/21 One Impairment Pt does not have an appropriate home exercise program Short Term Goal (STG) Pt to be independent and compliant with an appropriate HEP STG Duration 07/06/21 Assessment Summary Assessment Pt appearing to have increased tone along ITB, creating lateral pull along patella. Physical Therapy Plan Frequency and Duration Frequency of Treatment 2x/Week Duration of Treatment 8 weeks Plan of Care Start Date 06/06/21 Plan of Care End Date 08/01/21 Therapeutic Interventions Therapeutic Interventions Home Exercise Program,Joint Mobilizations,Manual Therapy, Neuromuscular Re-education, Patient/Caregiver Education, Self-Care/Home Management,Soft Tissue Mobilization, Therapeutic Activities, Therapeutic Exercises Modalities Cold Pack/Ice Massage,Electric Stimulation,Hot Packs, Ultrasound Next Visit Focus/Plan Next Note Type Treatment Note Next Visit Plan Knee ROM, Joint mobility, Quad /VMO strengthening
--- NOTE | 2021-06-06 17:34 | PT.OPPN ---
Current Diagnoses Chondromalacia patellae, left knee (06/06/21) Other disorders of patella, left knee (06/06/21) Pain in left knee (06/06/21) Pain in left leg (06/06/21) Physical Therapy Progress Note PT-OP-A Visit Information Start: 03/21/21 17:32 Freq: Status: Active Protocol: Document 06/06/21 16:05 DCW (Rec: 06/06/21 16:48 DCW [id number]) Out-Patient Physical Therapy Visit Information Visit Information Visit Type Progress Note Visit Start Time 16:05 Visit Stop Time 17:00 Total Visit Minutes 55 Visit Number 6 Number of KNIFE SHARPENER Visits 0 Evaluation Information Evaluation Date 03/21/21 PT-OP-B Current Condition Start: 03/21/21 17:32 Freq: Status: Active Protocol: Document 03/21/21 16:45 DCW (Rec: 03/21/21 17:44 DCW [id number]) Current Condition History of Current Condition Onset Date 02/06/21 Current Complaints Left knee pain, difficulty walking History of Current Condition Pt is a 60 year old female presenting with a 1.5 month history of left knee pain. Pt reports she was rushing to get to her flight to [facility] on , had to take her insulin, injected herself in her left thigh, and then drove to the airport. During her flight, she noticed worsening leg pain , and by the time she landed, couldn't put any weight on it, and had to have a wheelchair take her through the airport. Pt tried to walk it off, however was eventually taken to an urgent care clinic, who then sent her to the ER for CVT testing. Testing was negative, as was retesting when she returned to [place] . Pt notes she then saw her PCP, got an x-ray, and saw an Ortho, who gave her an injection, which has started it feeling a bit better, but she still requires a cane to get around. 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 Prior Treatments and Tests Left knee X-ray:IMPRESSION: Moderate tricompartmental osteoarthritis. No fracture or dislocation. Small to moderate joint effusion. Per: Irvin Roberts M.D. on 02/23/2021 Treatment Goals Patient/Caregiver Goals Improve left knee pain and mobility PT-OP-C Subjective Start: 03/21/21 17:32 Freq: Status: Active Protocol: Document 06/06/21 16:05 DCW (Rec: 06/06/21 16:48 DCW [id number]) OP-PT Subjective Patient Comments Patient Comments Pt notes her knee has been very stiff, and she has had increased soreness along lateral knee and thigh. PT-OP-F Manual Assessment Start: 03/21/21 17:32 Freq: Status: Active Protocol: Document 06/06/21 16:05 DCW (Rec: 06/06/21 16:27 DCW [id number]) Manual Assessments Soft Tissue Assessment Soft Tissue Mobility Assessment Moderate-severe tightness with Tenderness to palpation 3/4: Wincing and withdraw along left ITB and insertion. Joint Mobility Assessment Joint Mobility Assessment Moderate patella grinding with left knee movement. Poor patellar tracking. PT-OP-K Range of Motion Start: 03/21/21 17:32 Freq: Status: Active Protocol: Document 06/06/21 16:05 DCW (Rec: 06/06/21 16:27 DCW [id number]) Knee Goniometric Range of Motion Knee Measured in Degrees Right Patient Position Sitting Flexion Active (degrees) 118 Extension Active (degrees) 5 Left Patient Position Sitting Flexion Active (degrees) 113 Extension Active (degrees) 6 PT-OP-L Special Tests Start: 03/21/21 17:32 Freq: Status: Active Protocol: Document 06/06/21 16:05 DCW (Rec: 06/06/21 16:27 DCW [id number]) Special Tests Knee Special Tests Patellar Grind Test Test Results Positive Left PT-OP-M Strength Start: 03/21/21 17:32 Freq: Status: Active Protocol: Document 06/06/21 16:05 DCW (Rec: 06/06/21 16:27 DCW [id number]) Knee Strength Knee Manual Muscle Testing Left Flexion (S2) 4+ Good+ Extension (L3) 4- Good- Comments Sudden empty end feel Right Flexion (S2) 4+ Good+ Extension (L3) 4+ Good+ PT-OP-T Assessment and Plan Start: 03/21/21 17:32 Freq: Status: Active Protocol: Document 06/06/21 16:05 DCW (Rec: 06/06/21 16:48 DCW [id number]) Physical Therapy Assessment Impairments Impairments Activity Tolerance,Functional Activities,Functional Mobility ,Pain,ROM,Strength Goals Two Impairment Pt ambulates with antalgic gait using cane Salvage Mechanic Goal (LTG) Pt to demonstrate ability to ambulate 1000' during a 6 MWT without an assistive device with no increased pain LTG Duration 08/01/21 One Impairment Pt does not have an appropriate home exercise program Short Term Goal (STG) Pt to be independent and compliant with an appropriate HEP STG Duration 07/06/21 Assessment Summary Assessment Pt appearing to have increased tone along ITB, creating lateral pull along patella. Pt should benefit from continued skilled therapy to focus on improving Patella tracking and decreasing knee pain and stiffness. Physical Therapy Plan Frequency and Duration Frequency of Treatment 2x/Week Duration of Treatment 8 weeks Plan of Care Start Date 06/06/21 Plan of Care End Date 08/01/21 Therapeutic Interventions Therapeutic Interventions Home Exercise Program,Joint Mobilizations,Manual Therapy, Neuromuscular Re-education, Patient/Caregiver Education, Self-Care/Home Management,Soft Tissue Mobilization, Therapeutic Activities, Therapeutic Exercises Modalities Cold Pack/Ice Massage,Electric Stimulation,Hot Packs, Ultrasound Next Visit Focus/Plan Next Note Type Treatment Note Next Visit Plan Knee ROM, Joint mobility, Quad /VMO strengthening
--- NOTE | 2021-06-06 17:34 | PT.OPPOC ---
Physical, Occupational & Speech Therapy At [facility] Current Diagnoses Chondromalacia patellae, left knee (06/06/21) Other disorders of patella, left knee (06/06/21) Pain in left knee (06/06/21) Pain in left leg (06/06/21) Visit Care Team Role Provider Type Wilian Booth MD Attending Provider Physician Primary Care Provider Referring Provider Specialty: Family Practice Address: [address] [place] [address], [id number] Email: [email or web address] Plan Of Care PT-OP-T Assessment and Plan Start: 03/21/21 17:32 Freq: Status: Active Protocol: Document 06/06/21 16:05 DCW (Rec: 06/06/21 16:48 DCW [id number]) Physical Therapy Assessment Impairments Impairments Activity Tolerance,Functional Activities,Functional Mobility ,Pain,ROM,Strength Goals Two Impairment Pt ambulates with antalgic gait using cane Industrial Workers Goal (LTG) Pt to demonstrate ability to ambulate 1000' during a 6 MWT without an assistive device with no increased pain LTG Duration 08/01/21 One Impairment Pt does not have an appropriate home exercise program Short Term Goal (STG) Pt to be independent and compliant with an appropriate HEP STG Duration 07/06/21 Assessment Summary Assessment Pt appearing to have increased tone along ITB, creating lateral pull along patella. Pt should benefit from continued skilled therapy to focus on improving Patella tracking and decreasing knee pain and stiffness. Physical Therapy Plan Frequency and Duration Frequency of Treatment 2x/Week Duration of Treatment 8 weeks Plan of Care Start Date 06/06/21 Plan of Care End Date 08/01/21 Therapeutic Interventions Therapeutic Interventions Home Exercise Program,Joint Mobilizations,Manual Therapy, Neuromuscular Re-education, Patient/Caregiver Education, Self-Care/Home Management,Soft Tissue Mobilization, Therapeutic Activities, Therapeutic Exercises Modalities Cold Pack/Ice Massage,Electric Stimulation,Hot Packs, Ultrasound Next Visit Focus/Plan Next Note Type Treatment Note Next Visit Plan Knee ROM, Joint mobility, Quad /VMO strengthening Plan of Care Dates Plan of Care Start Date 06/06/21 Plan of Care End Date 08/01/21 Electronically Signed by: Dion Riggins, PT 06/06/21 1734 Please Sign and Return: I have reviewed this Plan of Care and certify that the skilled therapy services above are required to meet the patient?s needs. Physician Signature Date Printed Name and Credentials Clinical Instructor Signature Printed Name and Credentials
--- NOTE | 2021-06-06 17:35 | PT.OPPOC ---
Physical, Occupational & Speech Therapy At [facility] Current Diagnoses Chondromalacia patellae, left knee (06/06/21) Other disorders of patella, left knee (06/06/21) Pain in left knee (06/06/21) Pain in left leg (06/06/21) Visit Care Team Role Provider Type Wilian Booth MD Attending Provider Physician Primary Care Provider Referring Provider Specialty: Family Practice Address: [address] [place] [address], [id number] Email: [email or web address] Plan Of Care PT-OP-T Assessment and Plan Start: 03/21/21 17:32 Freq: Status: Active Protocol: Document 06/06/21 16:05 DCW (Rec: 06/06/21 16:48 DCW [id number]) Physical Therapy Assessment Impairments Impairments Activity Tolerance,Functional Activities,Functional Mobility ,Pain,ROM,Strength Goals Two Impairment Pt ambulates with antalgic gait using cane Cafeteria Operator Goal (LTG) Pt to demonstrate ability to ambulate 1000' during a 6 MWT without an assistive device with no increased pain LTG Duration 08/01/21 One Impairment Pt does not have an appropriate home exercise program Short Term Goal (STG) Pt to be independent and compliant with an appropriate HEP STG Duration 07/06/21 Assessment Summary Assessment Pt appearing to have increased tone along ITB, creating lateral pull along patella. Pt should benefit from continued skilled therapy to focus on improving Patella tracking and decreasing knee pain and stiffness. Physical Therapy Plan Frequency and Duration Frequency of Treatment 2x/Week Duration of Treatment 8 weeks Plan of Care Start Date 06/06/21 Plan of Care End Date 08/01/21 Therapeutic Interventions Therapeutic Interventions Home Exercise Program,Joint Mobilizations,Manual Therapy, Neuromuscular Re-education, Patient/Caregiver Education, Self-Care/Home Management,Soft Tissue Mobilization, Therapeutic Activities, Therapeutic Exercises Modalities Cold Pack/Ice Massage,Electric Stimulation,Hot Packs, Ultrasound Next Visit Focus/Plan Next Note Type Treatment Note Next Visit Plan Knee ROM, Joint mobility, Quad /VMO strengthening Plan of Care Dates Plan of Care Start Date 06/06/21 Plan of Care End Date 08/01/21 Electronically Signed by: Dion Riggins, PT 06/06/21 1735 Please Sign and Return: I have reviewed this Plan of Care and certify that the skilled therapy services above are required to meet the patient?s needs. Physician Signature Date Printed Name and Credentials Clinical Instructor Signature Printed Name and Credentials
--- NOTE | 2021-06-09 11:57 | PT.OTN ---
Current Diagnoses Chondromalacia patellae, left knee (06/09/21) Other disorders of patella, left knee (06/09/21) Pain in left knee (06/09/21) Pain in left leg (06/09/21) Physical Therapy Treatment Note PT-OP-A Visit Information Start: 03/21/21 17:32 Freq: Status: Active Protocol: Document 06/09/21 11:15 DCW (Rec: 06/09/21 11:57 DCW [id number]) Out-Patient Physical Therapy Visit Information Visit Information Visit Type Treatment Note Visit Start Time 11:15 Visit Stop Time 12:10 Total Visit Minutes 55 Visit Number 7 Number of TRAIN ELECTRONIC TECHNICIAN Visits 0 Evaluation Information Evaluation Date 03/21/21 PT-OP-B Current Condition Start: 03/21/21 17:32 Freq: Status: Active Protocol: Document 03/21/21 16:45 DCW (Rec: 03/21/21 17:44 DCW [id number]) Current Condition History of Current Condition Onset Date 02/06/21 Current Complaints Left knee pain, difficulty walking History of Current Condition Pt is a 60 year old female presenting with a 1.5 month history of left knee pain. Pt reports she was rushing to get to her flight to [facility] on , had to take her insulin, injected herself in her left thigh, and then drove to the airport. During her flight, she noticed worsening leg pain , and by the time she landed, couldn't put any weight on it, and had to have a wheelchair take her through the airport. Pt tried to walk it off, however was eventually taken to an urgent care clinic, who then sent her to the ER for CVT testing. Testing was negative, as was retesting when she returned to [place] . Pt notes she then saw her PCP, got an x-ray, and saw an Ortho, who gave her an injection, which has started it feeling a bit better, but she still requires a cane to get around. 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 Prior Treatments and Tests Left knee X-ray:IMPRESSION: Moderate tricompartmental osteoarthritis. No fracture or dislocation. Small to moderate joint effusion. Per: Irvin Roberts M.D. on 02/23/2021 Treatment Goals Patient/Caregiver Goals Improve left knee pain and mobility PT-OP-C Subjective Start: 03/21/21 17:32 Freq: Status: Active Protocol: Document 06/09/21 11:15 DCW (Rec: 06/09/21 11:57 DCW [id number]) OP-PT Subjective Patient Comments Patient Comments Pt reports she is having some mild increased knee pain after needing to walk from long-term around the hospital due to lack of parking. PT-OP-F Manual Assessment Start: 03/21/21 17:32 Freq: Status: Active Protocol: Document 06/06/21 16:05 DCW (Rec: 06/06/21 16:27 DCW [id number]) Manual Assessments Soft Tissue Assessment Soft Tissue Mobility Assessment Moderate-severe tightness with Tenderness to palpation 3/4: Wincing and withdraw along left ITB and insertion. Joint Mobility Assessment Joint Mobility Assessment Moderate patella grinding with left knee movement. Poor patellar tracking. PT-OP-K Range of Motion Start: 03/21/21 17:32 Freq: Status: Active Protocol: Document 06/06/21 16:05 DCW (Rec: 06/06/21 16:27 DCW [id number]) Knee Goniometric Range of Motion Knee Right Patient Position Sitting Flexion Active (degrees) 118 Extension Active (degrees) 5 Left Patient Position Sitting Flexion Active (degrees) 113 Extension Active (degrees) 6 PT-OP-L Special Tests Start: 03/21/21 17:32 Freq: Status: Active Protocol: Document 06/06/21 16:05 DCW (Rec: 06/06/21 16:27 DCW [id number]) Special Tests Knee Special Tests Patellar Grind Test Test Results Positive Left PT-OP-M Strength Start: 03/21/21 17:32 Freq: Status: Active Protocol: Document 06/06/21 16:05 DCW (Rec: 06/06/21 16:27 DCW [id number]) Knee Strength Knee Manual Muscle Testing Left Flexion (S2) 4+ Good+ Extension (L3) 4- Good- Comments Sudden empty end feel Right Flexion (S2) 4+ Good+ Extension (L3) 4+ Good+ PT-OP-Q Treatments Start: 03/21/21 17:32 Freq: Status: Active Protocol: Document 06/09/21 11:15 DCW (Rec: 06/09/21 11:57 DCW [id number]) Cardio Equipment Recumbent Bicycle Duration (Minutes) 5 Resistance 4 Seat Position 10 Gym Equipment Shuttle Recovery Bilateral Squats Details /c Adductor ball squeeze Resistance 100# Shuttle Recovery Platform Stable Reps/Time x20 Unilateral Squats Resistance 62# Shuttle Recovery Platform Stable Reps/Time x10 Therapeutic Exercises Supine Exercises 5 Supine Exercise Name ITB stretch /c strap Side bilateral 4 Supine Exercise Name Lower trunk rotations Equipment Used 55 cm ball Manual Therapy Treatment Soft Tissue Mobilization 1 Body Location ITB STM Mobilization Type Strumming,Trigger Point Release PT-OP-R Modalities Start: 03/21/21 17:32 Freq: Status: Active Protocol: Document 06/09/21 11:15 DCW (Rec: 06/09/21 11:57 DCW [id number]) Electric Stimulation Electric Stimulation Interferential Current (IFC) Body Location L knee Duration (Minutes) 15 Intensity 40 Cycle Continuous Patient Position Prone Combined With Heat/Cold Hot Pack PT-OP-T Assessment and Plan Start: 03/21/21 17:32 Freq: Status: Active Protocol: Document 06/09/21 11:15 DCW (Rec: 06/09/21 11:57 DCW [id number]) Physical Therapy Assessment Impairments Impairments Activity Tolerance,Functional Activities,Functional Mobility ,Pain,ROM,Strength Goals Two Impairment Pt ambulates with antalgic gait using cane Tanning Solution Maker Goal (LTG) Pt to demonstrate ability to ambulate 1000' during a 6 MWT without an assistive device with no increased pain LTG Duration 08/01/21 One Impairment Pt does not have an appropriate home exercise program Short Term Goal (STG) Pt to be independent and compliant with an appropriate HEP STG Duration 07/06/21 Assessment Summary Assessment Pt doing well today, has been working on stretching at home, noticeable improvement with tightness and soreness along ITB. Physical Therapy Plan Frequency and Duration Frequency of Treatment 2x/Week Duration of Treatment 8 weeks Plan of Care Start Date 06/06/21 Plan of Care End Date 08/01/21 Therapeutic Interventions Therapeutic Interventions Home Exercise Program,Joint Mobilizations,Manual Therapy, Neuromuscular Re-education, Patient/Caregiver Education, Self-Care/Home Management,Soft Tissue Mobilization, Therapeutic Activities, Therapeutic Exercises Modalities Cold Pack/Ice Massage,Electric Stimulation,Hot Packs, Ultrasound Next Visit Focus/Plan Next Note Type Treatment Note Next Visit Plan Knee ROM, Joint mobility, Quad /VMO strengthening
--- NOTE | 2021-06-13 12:00 | PT.OTN ---
Current Diagnoses Chondromalacia patellae, left knee (06/13/21) Other disorders of patella, left knee (06/13/21) Pain in left knee (06/13/21) Pain in left leg (06/13/21) Physical Therapy Treatment Note PT-OP-A Visit Information Start: 03/21/21 17:32 Freq: Status: Active Protocol: Document 06/13/21 11:22 DCW (Rec: 06/13/21 12:00 DCW [id number]) Out-Patient Physical Therapy Visit Information Visit Information Visit Type Treatment Note Visit Start Time : Visit Stop Time 12:10 Total Visit Minutes 48 Visit Number 8 Number of SPLITTING MACHINE OPERATOR HELPER Visits 0 Evaluation Information Evaluation Date 03/21/21 PT-OP-B Current Condition Start: 03/21/21 17:32 Freq: Status: Active Protocol: Document 03/21/21 16:45 DCW (Rec: 03/21/21 17:44 DCW [id number]) Current Condition History of Current Condition Onset Date 02/06/21 Current Complaints Left knee pain, difficulty walking History of Current Condition Pt is a 60 year old female presenting with a 1.5 month history of left knee pain. Pt reports she was rushing to get to her flight to [facility] on , had to take her insulin, injected herself in her left thigh, and then drove to the airport. During her flight, she noticed worsening leg pain , and by the time she landed, couldn't put any weight on it, and had to have a wheelchair take her through the airport. Pt tried to walk it off, however was eventually taken to an urgent care clinic, who then sent her to the ER for CVT testing. Testing was negative, as was retesting when she returned to [place] . Pt notes she then saw her PCP, got an x-ray, and saw an Ortho, who gave her an injection, which has started it feeling a bit better, but she still requires a cane to get around. 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 Prior Treatments and Tests Left knee X-ray:IMPRESSION: Moderate tricompartmental osteoarthritis. No fracture or dislocation. Small to moderate joint effusion. Per: Irvin Roberts M.D. on 02/23/2021 Treatment Goals Patient/Caregiver Goals Improve left knee pain and mobility PT-OP-C Subjective Start: 03/21/21 17:32 Freq: Status: Active Protocol: Document 06/13/21 11:22 DCW (Rec: 06/13/21 12:00 DCW [id number]) OP-PT Subjective Patient Comments Patient Comments The knee is grouchy. I seem to have a lot of inflammation in my legs and back. I think the exercises are helping. PT-OP-F Manual Assessment Start: 03/21/21 17:32 Freq: Status: Active Protocol: Document 06/06/21 16:05 DCW (Rec: 06/06/21 16:27 DCW [id number]) Manual Assessments Soft Tissue Assessment Soft Tissue Mobility Assessment Moderate-severe tightness with Tenderness to palpation 3/4: Wincing and withdraw along left ITB and insertion. Joint Mobility Assessment Joint Mobility Assessment Moderate patella grinding with left knee movement. Poor patellar tracking. PT-OP-K Range of Motion Start: 03/21/21 17:32 Freq: Status: Active Protocol: Document 06/06/21 16:05 DCW (Rec: 06/06/21 16:27 DCW [id number]) Knee Goniometric Range of Motion Knee Right Patient Position Sitting Flexion Active (degrees) 118 Extension Active (degrees) 5 Left Patient Position Sitting Flexion Active (degrees) 113 Extension Active (degrees) 6 PT-OP-L Special Tests Start: 03/21/21 17:32 Freq: Status: Active Protocol: Document 06/06/21 16:05 DCW (Rec: 06/06/21 16:27 DCW [id number]) Special Tests Knee Special Tests Patellar Grind Test Test Results Positive Left PT-OP-M Strength Start: 03/21/21 17:32 Freq: Status: Active Protocol: Document 06/06/21 16:05 DCW (Rec: 06/06/21 16:27 DCW [id number]) Knee Strength Knee Manual Muscle Testing Left Flexion (S2) 4+ Good+ Extension (L3) 4- Good- Comments Sudden empty end feel Right Flexion (S2) 4+ Good+ Extension (L3) 4+ Good+ PT-OP-Q Treatments Start: 03/21/21 17:32 Freq: Status: Active Protocol: Document 06/13/21 11:22 DCW (Rec: 06/13/21 12:00 DCW [id number]) Cardio Equipment Recumbent Bicycle Duration (Minutes) 4 Resistance 4 Seat Position 10 Other stopped d/t thigh pain Gym Equipment Shuttle Recovery Bilateral Squats Details /c Adductor ball squeeze Resistance 100# Shuttle Recovery Platform Stable Reps/Time x20 Unilateral Squats Resistance 62# Shuttle Recovery Platform Stable Reps/Time x10 Therapeutic Exercises Supine Exercises 5 Supine Exercise Name ITB stretch /c strap Side bilateral 4 Supine Exercise Name Lower trunk rotations Equipment Used 55 cm ball 3 Supine Exercise Name Hamstring stretch Side bilateral Manual Therapy Treatment Soft Tissue Mobilization 1 Body Location ITB STM Mobilization Type Strumming,Trigger Point Release PT-OP-R Modalities Start: 03/21/21 17:32 Freq: Status: Active Protocol: Document 06/13/21 11:22 DCW (Rec: 06/13/21 12:00 DCW [id number]) Electric Stimulation Electric Stimulation Interferential Current (IFC) Body Location L knee Duration (Minutes) 15 Intensity 40 Cycle Continuous Patient Position Supine Combined With Heat/Cold Hot Pack PT-OP-T Assessment and Plan Start: 03/21/21 17:32 Freq: Status: Active Protocol: Document 06/13/21 11:22 DCW (Rec: 06/13/21 12:00 DCW [id number]) Physical Therapy Assessment Impairments Impairments Activity Tolerance,Functional Activities,Functional Mobility ,Pain,ROM,Strength Goals Two Impairment Pt ambulates with antalgic gait using cane Care Home Goal (LTG) Pt to demonstrate ability to ambulate 1000' during a 6 MWT without an assistive device with no increased pain LTG Duration 08/01/21 One Impairment Pt does not have an appropriate home exercise program Short Term Goal (STG) Pt to be independent and compliant with an appropriate HEP STG Duration 07/06/21 Assessment Summary Assessment Pt showing some improvement with patella tracking, still complaining of sensation that her leg is just going to snap . Physical Therapy Plan Frequency and Duration Frequency of Treatment 2x/Week Duration of Treatment 8 weeks Plan of Care Start Date 06/06/21 Plan of Care End Date 08/01/21 Therapeutic Interventions Therapeutic Interventions Home Exercise Program,Joint Mobilizations,Manual Therapy, Neuromuscular Re-education, Patient/Caregiver Education, Self-Care/Home Management,Soft Tissue Mobilization, Therapeutic Activities, Therapeutic Exercises Modalities Cold Pack/Ice Massage,Electric Stimulation,Hot Packs, Ultrasound Next Visit Focus/Plan Next Note Type Treatment Note Next Visit Plan Knee ROM, Joint mobility, Quad /VMO strengthening
--- NOTE | 2021-06-16 12:00 | PT.OTN ---
Current Diagnoses Chondromalacia patellae, left knee (06/16/21) Other disorders of patella, left knee (06/16/21) Pain in left knee (06/16/21) Pain in left leg (06/16/21) Physical Therapy Treatment Note PT-OP-A Visit Information Start: 03/21/21 17:32 Freq: Status: Active Protocol: Document 06/16/21 11:15 DCW (Rec: 06/16/21 12:00 DCW [id number]) Out-Patient Physical Therapy Visit Information Visit Information Visit Type Treatment Note Visit Start Time 11:15 Visit Stop Time 12:10 Total Visit Minutes 55 Visit Number 9 Number of RELOCATION COORDINATOR Visits 0 Evaluation Information Evaluation Date 03/21/21 PT-OP-B Current Condition Start: 03/21/21 17:32 Freq: Status: Active Protocol: Document 03/21/21 16:45 DCW (Rec: 03/21/21 17:44 DCW [id number]) Current Condition History of Current Condition Onset Date 02/06/21 Current Complaints Left knee pain, difficulty walking History of Current Condition Pt is a 60 year old female presenting with a 1.5 month history of left knee pain. Pt reports she was rushing to get to her flight to [facility] on , had to take her insulin, injected herself in her left thigh, and then drove to the airport. During her flight, she noticed worsening leg pain , and by the time she landed, couldn't put any weight on it, and had to have a wheelchair take her through the airport. Pt tried to walk it off, however was eventually taken to an urgent care clinic, who then sent her to the ER for CVT testing. Testing was negative, as was retesting when she returned to [place] . Pt notes she then saw her PCP, got an x-ray, and saw an Ortho, who gave her an injection, which has started it feeling a bit better, but she still requires a cane to get around. 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 Prior Treatments and Tests Left knee X-ray:IMPRESSION: Moderate tricompartmental osteoarthritis. No fracture or dislocation. Small to moderate joint effusion. Per: Irvin Roberts M.D. on 02/23/2021 Treatment Goals Patient/Caregiver Goals Improve left knee pain and mobility PT-OP-C Subjective Start: 03/21/21 17:32 Freq: Status: Active Protocol: Document 06/16/21 11:15 DCW (Rec: 06/16/21 12:00 DCW [id number]) OP-PT Subjective Patient Comments Patient Comments Pt notes her knee is not as sensitive, but still sensitive . It's gone from a 10+ to about an 8. PT-OP-F Manual Assessment Start: 03/21/21 17:32 Freq: Status: Active Protocol: Document 06/06/21 16:05 DCW (Rec: 06/06/21 16:27 DCW [id number]) Manual Assessments Soft Tissue Assessment Soft Tissue Mobility Assessment Moderate-severe tightness with Tenderness to palpation 3/4: Wincing and withdraw along left ITB and insertion. Joint Mobility Assessment Joint Mobility Assessment Moderate patella grinding with left knee movement. Poor patellar tracking. PT-OP-K Range of Motion Start: 03/21/21 17:32 Freq: Status: Active Protocol: Document 06/06/21 16:05 DCW (Rec: 06/06/21 16:27 DCW [id number]) Knee Goniometric Range of Motion Knee Right Patient Position Sitting Flexion Active (degrees) 118 Extension Active (degrees) 5 Left Patient Position Sitting Flexion Active (degrees) 113 Extension Active (degrees) 6 PT-OP-L Special Tests Start: 03/21/21 17:32 Freq: Status: Active Protocol: Document 06/06/21 16:05 DCW (Rec: 06/06/21 16:27 DCW [id number]) Special Tests Knee Special Tests Patellar Grind Test Test Results Positive Left PT-OP-M Strength Start: 03/21/21 17:32 Freq: Status: Active Protocol: Document 06/06/21 16:05 DCW (Rec: 06/06/21 16:27 DCW [id number]) Knee Strength Knee Manual Muscle Testing Left Flexion (S2) 4+ Good+ Extension (L3) 4- Good- Comments Sudden empty end feel Right Flexion (S2) 4+ Good+ Extension (L3) 4+ Good+ PT-OP-Q Treatments Start: 03/21/21 17:32 Freq: Status: Active Protocol: Document 06/16/21 11:15 DCW (Rec: 06/16/21 12:00 DCW [id number]) Cardio Equipment Recumbent Bicycle Duration (Minutes) 5 Resistance 4 Seat Position 10 Therapeutic Exercises Supine Exercises 5 Supine Exercise Name ITB stretch /c strap Side bilateral 4 Supine Exercise Name Lower trunk rotations Equipment Used 55 cm ball 3 Supine Exercise Name Hamstring stretch Side bilateral Other Exercises 1 Other Exercise Name Resisted side-stepping Resistance Green Equipment Used T-band Manual Therapy Treatment Soft Tissue Mobilization 1 Body Location ITB STM Mobilization Type Strumming,Trigger Point Release Joint Mobilizations 1 Joint L Patellofemoral Direction Sup/Inf Grade III Body Position Supine PT-OP-R Modalities Start: 03/21/21 17:32 Freq: Status: Active Protocol: Document 06/16/21 11:15 DCW (Rec: 06/16/21 12:00 DCW [id number]) Electric Stimulation Electric Stimulation Interferential Current (IFC) Body Location L knee Duration (Minutes) 15 Intensity 37 Cycle Continuous Patient Position Supine Combined With Heat/Cold Hot Pack PT-OP-T Assessment and Plan Start: 03/21/21 17:32 Freq: Status: Active Protocol: Document 06/16/21 11:15 DCW (Rec: 06/16/21 12:00 DCW [id number]) Physical Therapy Assessment Impairments Impairments Activity Tolerance,Functional Activities,Functional Mobility ,Pain,ROM,Strength Goals Two Impairment Pt ambulates with antalgic gait using cane Quill Machine Tender Goal (LTG) Pt to demonstrate ability to ambulate 1000' during a 6 MWT without an assistive device with no increased pain LTG Duration 08/01/21 One Impairment Pt does not have an appropriate home exercise program Short Term Goal (STG) Pt to be independent and compliant with an appropriate HEP STG Duration 07/06/21 Assessment Summary Assessment Pt reported improvement during patellar mobilizations, overall much less tenderness than the last few sessions. Physical Therapy Plan Frequency and Duration Frequency of Treatment 2x/Week Duration of Treatment 8 weeks Plan of Care Start Date 06/06/21 Plan of Care End Date 08/01/21 Therapeutic Interventions Therapeutic Interventions Home Exercise Program,Joint Mobilizations,Manual Therapy, Neuromuscular Re-education, Patient/Caregiver Education, Self-Care/Home Management,Soft Tissue Mobilization, Therapeutic Activities, Therapeutic Exercises Modalities Cold Pack/Ice Massage,Electric Stimulation,Hot Packs, Ultrasound Next Visit Focus/Plan Next Note Type Treatment Note Next Visit Plan Knee ROM, Joint mobility, Quad /VMO strengthening
--- NOTE | 2021-06-24 16:42 | PT.OTN ---
Current Diagnoses Chondromalacia patellae, left knee (06/24/21) Other disorders of patella, left knee (06/24/21) Pain in left knee (06/24/21) Pain in left leg (06/24/21) Physical Therapy Treatment Note PT-OP-A Visit Information Start: 03/21/21 17:32 Freq: Status: Active Protocol: Document 06/24/21 16:04 DCW (Rec: 06/24/21 16:41 DCW [id number]) Out-Patient Physical Therapy Visit Information Visit Information Visit Type Treatment Note Visit Start Time 16:04 Visit Stop Time 16:49 Total Visit Minutes 45 Visit Number 10 Number of MAIN LINE ASSEMBLER Visits 0 Evaluation Information Evaluation Date 03/21/21 PT-OP-B Current Condition Start: 03/21/21 17:32 Freq: Status: Active Protocol: Document 03/21/21 16:45 DCW (Rec: 03/21/21 17:44 DCW [id number]) Current Condition History of Current Condition Onset Date 02/06/21 Current Complaints Left knee pain, difficulty walking History of Current Condition Pt is a 60 year old female presenting with a 1.5 month history of left knee pain. Pt reports she was rushing to get to her flight to [facility] on , had to take her insulin, injected herself in her left thigh, and then drove to the airport. During her flight, she noticed worsening leg pain , and by the time she landed, couldn't put any weight on it, and had to have a wheelchair take her through the airport. Pt tried to walk it off, however was eventually taken to an urgent care clinic, who then sent her to the ER for CVT testing. Testing was negative, as was retesting when she returned to [place] . Pt notes she then saw her PCP, got an x-ray, and saw an Ortho, who gave her an injection, which has started it feeling a bit better, but she still requires a cane to get around. 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 Prior Treatments and Tests Left knee X-ray:IMPRESSION: Moderate tricompartmental osteoarthritis. No fracture or dislocation. Small to moderate joint effusion. Per: Irvin Roberts M.D. on 02/23/2021 Treatment Goals Patient/Caregiver Goals Improve left knee pain and mobility PT-OP-C Subjective Start: 03/21/21 17:32 Freq: Status: Active Protocol: Document 06/24/21 16:04 DCW (Rec: 06/24/21 16:41 DCW [id number]) OP-PT Subjective Patient Comments Patient Comments I hurt really bad, I cleaned my house this morning. PT-OP-F Manual Assessment Start: 03/21/21 17:32 Freq: Status: Active Protocol: Document 06/06/21 16:05 DCW (Rec: 06/06/21 16:27 DCW [id number]) Manual Assessments Soft Tissue Assessment Soft Tissue Mobility Assessment Moderate-severe tightness with Tenderness to palpation 3/4: Wincing and withdraw along left ITB and insertion. Joint Mobility Assessment Joint Mobility Assessment Moderate patella grinding with left knee movement. Poor patellar tracking. PT-OP-K Range of Motion Start: 03/21/21 17:32 Freq: Status: Active Protocol: Document 06/06/21 16:05 DCW (Rec: 06/06/21 16:27 DCW [id number]) Knee Goniometric Range of Motion Knee Right Patient Position Sitting Flexion Active (degrees) 118 Extension Active (degrees) 5 Left Patient Position Sitting Flexion Active (degrees) 113 Extension Active (degrees) 6 PT-OP-L Special Tests Start: 03/21/21 17:32 Freq: Status: Active Protocol: Document 06/06/21 16:05 DCW (Rec: 06/06/21 16:27 DCW [id number]) Special Tests Knee Special Tests Patellar Grind Test Test Results Positive Left PT-OP-M Strength Start: 03/21/21 17:32 Freq: Status: Active Protocol: Document 06/06/21 16:05 DCW (Rec: 06/06/21 16:27 DCW [id number]) Knee Strength Knee Manual Muscle Testing Left Flexion (S2) 4+ Good+ Extension (L3) 4- Good- Comments Sudden empty end feel Right Flexion (S2) 4+ Good+ Extension (L3) 4+ Good+ PT-OP-Q Treatments Start: 03/21/21 17:32 Freq: Status: Active Protocol: Document 06/24/21 16:04 DCW (Rec: 06/24/21 16:41 DCW [id number]) Cardio Equipment Recumbent Bicycle Duration (Minutes) 5 Resistance 4 Seat Position 10 Gym Equipment Shuttle Recovery Bilateral Squats Details /c Adductor ball squeeze Resistance 100# Shuttle Recovery Platform Stable Reps/Time x20 Unilateral Squats Resistance 62# Shuttle Recovery Platform Stable Reps/Time x10 Therapeutic Exercises Supine Exercises 5 Supine Exercise Name ITB stretch /c strap Side bilateral 4 Supine Exercise Name Lower trunk rotations Equipment Used 55 cm ball 3 Supine Exercise Name Hamstring stretch Side bilateral Manual Therapy Treatment Soft Tissue Mobilization 1 Body Location ITB STM Mobilization Type Strumming,Trigger Point Release PT-OP-R Modalities Start: 03/21/21 17:32 Freq: Status: Active Protocol: Document 06/24/21 16:04 DCW (Rec: 06/24/21 16:41 DCW [id number]) Electric Stimulation Electric Stimulation Interferential Current (IFC) Body Location L knee Duration (Minutes) 15 Cycle Continuous Patient Position Supine Combined With Heat/Cold Hot Pack PT-OP-T Assessment and Plan Start: 03/21/21 17:32 Freq: Status: Active Protocol: Document 06/24/21 16:04 DCW (Rec: 06/24/21 16:41 DCW [id number]) Physical Therapy Assessment Impairments Impairments Activity Tolerance,Functional Activities,Functional Mobility ,Pain,ROM,Strength Goals Two Impairment Pt ambulates with antalgic gait using cane Despatching And Receiving Clerk Goal (LTG) Pt to demonstrate ability to ambulate 1000' during a 6 MWT without an assistive device with no increased pain LTG Duration 08/01/21 One Impairment Pt does not have an appropriate home exercise program Short Term Goal (STG) Pt to be independent and compliant with an appropriate HEP STG Duration 07/06/21 Assessment Summary Assessment Pt feeling better after starting out sore today, able to loosen up during exercise. Physical Therapy Plan Frequency and Duration Frequency of Treatment 2x/Week Duration of Treatment 8 weeks Plan of Care Start Date 06/06/21 Plan of Care End Date 08/01/21 Therapeutic Interventions Therapeutic Interventions Home Exercise Program,Joint Mobilizations,Manual Therapy, Neuromuscular Re-education, Patient/Caregiver Education, Self-Care/Home Management,Soft Tissue Mobilization, Therapeutic Activities, Therapeutic Exercises Modalities Cold Pack/Ice Massage,Electric Stimulation,Hot Packs, Ultrasound Next Visit Focus/Plan Next Note Type Treatment Note Next Visit Plan Knee ROM, Joint mobility, Quad /VMO strengthening
--- NOTE | 2021-07-19 12:43 | PT.OTN ---
Current Diagnoses Chondromalacia patellae, left knee (07/19/21) Other disorders of patella, left knee (07/19/21) Pain in left knee (07/19/21) Pain in left leg (07/19/21) Physical Therapy Treatment Note PT-OP-A Visit Information Start: 03/21/21 17:32 Freq: Status: Active Protocol: Document 07/19/21 12:01 DCW (Rec: 07/19/21 12:42 DCW [id number]) Out-Patient Physical Therapy Visit Information Visit Information Visit Type Treatment Note Visit Start Time 12:01 Visit Stop Time 12:50 Total Visit Minutes 49 Visit Number 11 Number of PHARMACIST INTERN Visits 0 Evaluation Information Evaluation Date 03/21/21 PT-OP-B Current Condition Start: 03/21/21 17:32 Freq: Status: Active Protocol: Document 03/21/21 16:45 DCW (Rec: 03/21/21 17:44 DCW [id number]) Current Condition History of Current Condition Onset Date 02/06/21 Current Complaints Left knee pain, difficulty walking History of Current Condition Pt is a 60 year old female presenting with a 1.5 month history of left knee pain. Pt reports she was rushing to get to her flight to [facility] on , had to take her insulin, injected herself in her left thigh, and then drove to the airport. During her flight, she noticed worsening leg pain , and by the time she landed, couldn't put any weight on it, and had to have a wheelchair take her through the airport. Pt tried to walk it off, however was eventually taken to an urgent care clinic, who then sent her to the ER for CVT testing. Testing was negative, as was retesting when she returned to [place] . Pt notes she then saw her PCP, got an x-ray, and saw an Ortho, who gave her an injection, which has started it feeling a bit better, but she still requires a cane to get around. 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 Prior Treatments and Tests Left knee X-ray:IMPRESSION: Moderate tricompartmental osteoarthritis. No fracture or dislocation. Small to moderate joint effusion. Per: Irvin Roberts M.D. on 02/23/2021 Treatment Goals Patient/Caregiver Goals Improve left knee pain and mobility PT-OP-C Subjective Start: 03/21/21 17:32 Freq: Status: Active Protocol: Document 07/19/21 12:01 DCW (Rec: 07/19/21 12:42 DCW [id number]) OP-PT Subjective Patient Comments Patient Comments I'm hanging in there. I've had some issue with some kind of allergic reaction. PT-OP-F Manual Assessment Start: 03/21/21 17:32 Freq: Status: Active Protocol: Document 06/06/21 16:05 DCW (Rec: 06/06/21 16:27 DCW [id number]) Manual Assessments Soft Tissue Assessment Soft Tissue Mobility Assessment Moderate-severe tightness with Tenderness to palpation 3/4: Wincing and withdraw along left ITB and insertion. Joint Mobility Assessment Joint Mobility Assessment Moderate patella grinding with left knee movement. Poor patellar tracking. PT-OP-K Range of Motion Start: 03/21/21 17:32 Freq: Status: Active Protocol: Document 06/06/21 16:05 DCW (Rec: 06/06/21 16:27 DCW [id number]) Knee Goniometric Range of Motion Knee Right Patient Position Sitting Flexion Active (degrees) 118 Extension Active (degrees) 5 Left Patient Position Sitting Flexion Active (degrees) 113 Extension Active (degrees) 6 PT-OP-L Special Tests Start: 03/21/21 17:32 Freq: Status: Active Protocol: Document 06/06/21 16:05 DCW (Rec: 06/06/21 16:27 DCW [id number]) Special Tests Knee Special Tests Patellar Grind Test Test Results Positive Left PT-OP-M Strength Start: 03/21/21 17:32 Freq: Status: Active Protocol: Document 06/06/21 16:05 DCW (Rec: 06/06/21 16:27 DCW [id number]) Knee Strength Knee Manual Muscle Testing Left Flexion (S2) 4+ Good+ Extension (L3) 4- Good- Comments Sudden empty end feel Right Flexion (S2) 4+ Good+ Extension (L3) 4+ Good+ PT-OP-Q Treatments Start: 03/21/21 17:32 Freq: Status: Active Protocol: Document 07/19/21 12:01 DCW (Rec: 07/19/21 12:42 DCW [id number]) Cardio Equipment Recumbent Bicycle Duration (Minutes) 5 Resistance 4 Seat Position 10 Gym Equipment Shuttle Recovery Bilateral Squats Details /c Adductor ball squeeze Resistance 100# Shuttle Recovery Platform Stable Reps/Time x20 Unilateral Squats Resistance 62# Shuttle Recovery Platform Stable Reps/Time x10 Therapeutic Exercises Supine Exercises 5 Supine Exercise Name ITB stretch /c strap Side bilateral 4 Supine Exercise Name Lower trunk rotations Equipment Used 55 cm ball 3 Supine Exercise Name Hamstring stretch Side bilateral Manual Therapy Treatment Soft Tissue Mobilization 1 Body Location ITB STM Mobilization Type Strumming,Trigger Point Release Joint Mobilizations 1 Joint L Patellofemoral Direction Sup/Inf Grade III Body Position Supine PT-OP-R Modalities Start: 03/21/21 17:32 Freq: Status: Active Protocol: Document 07/19/21 12:01 DCW (Rec: 07/19/21 12:42 DCW [id number]) Electric Stimulation Electric Stimulation Interferential Current (IFC) Body Location L knee Duration (Minutes) 15 Cycle Continuous Patient Position Supine Combined With Heat/Cold Hot Pack PT-OP-T Assessment and Plan Start: 03/21/21 17:32 Freq: Status: Active Protocol: Document 07/19/21 12:01 DCW (Rec: 07/19/21 12:42 DCW [id number]) Physical Therapy Assessment Impairments Impairments Activity Tolerance,Functional Activities,Functional Mobility ,Pain,ROM,Strength Goals Two Impairment Pt ambulates with antalgic gait using cane Prison Goal (LTG) Pt to demonstrate ability to ambulate 1000' during a 6 MWT without an assistive device with no increased pain LTG Duration 08/01/21 One Impairment Pt does not have an appropriate home exercise program Short Term Goal (STG) Pt to be independent and compliant with an appropriate HEP STG Duration 07/06/21 Assessment Summary Assessment Pt happy overall with her current progress, agreeable to discharge following her next appointment, will be trying to join a local gym. Physical Therapy Plan Frequency and Duration Frequency of Treatment 2x/Week Duration of Treatment 8 weeks Plan of Care Start Date 06/06/21 Plan of Care End Date 08/01/21 Therapeutic Interventions Therapeutic Interventions Home Exercise Program,Joint Mobilizations,Manual Therapy, Neuromuscular Re-education, Patient/Caregiver Education, Self-Care/Home Management,Soft Tissue Mobilization, Therapeutic Activities, Therapeutic Exercises Modalities Cold Pack/Ice Massage,Electric Stimulation,Hot Packs, Ultrasound Next Visit Focus/Plan Next Note Type Treatment Note Next Visit Plan Knee ROM, Joint mobility, Quad /VMO strengthening
--- NOTE | 2021-07-25 15:14 | PT.OTN ---
Current Diagnoses Chondromalacia patellae, left knee (07/25/21) Other disorders of patella, left knee (07/25/21) Pain in left knee (07/25/21) Pain in left leg (07/25/21) Physical Therapy Treatment Note PT-OP-A Visit Information Start: 03/21/21 17:32 Freq: Status: Active Protocol: Document 07/25/21 14:35 DCW (Rec: 07/25/21 15:14 DCW [id number]) Out-Patient Physical Therapy Visit Information Visit Information Visit Type Discharge Summary Visit Start Time 14:35 Visit Stop Time 15:25 Total Visit Minutes 50 Visit Number 12 Number of PSYCHIC READER Visits 0 Evaluation Information Evaluation Date 03/21/21 PT-OP-B Current Condition Start: 03/21/21 17:32 Freq: Status: Active Protocol: Document 03/21/21 16:45 DCW (Rec: 03/21/21 17:44 DCW [id number]) Current Condition History of Current Condition Onset Date 02/06/21 Current Complaints Left knee pain, difficulty walking History of Current Condition Pt is a 60 year old female presenting with a 1.5 month history of left knee pain. Pt reports she was rushing to get to her flight [facility] , had to take her insulin, injected herself in her left thigh, and then drove to the airport. During her flight, she noticed worsening leg pain , and by the time she landed, couldn't put any weight on it, and had to have a wheelchair take her through the airport. Pt tried to walk it off, however was eventually taken to an urgent care clinic, who then sent her to the ER for CVT testing. Testing was negative, as was retesting when she returned to [place] . Pt notes she then saw her PCP, got an x-ray, and saw an Ortho, who gave her an injection, which has started it feeling a bit better, but she still requires a cane to get around. 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 Prior Treatments and Tests Left knee X-ray:IMPRESSION: Moderate tricompartmental osteoarthritis. No fracture or dislocation. Small to moderate joint effusion. Per: Irvin Roberts M.D. on 02/23/2021 Treatment Goals Patient/Caregiver Goals Improve left knee pain and mobility PT-OP-C Subjective Start: 03/21/21 17:32 Freq: Status: Active Protocol: Document 07/25/21 14:35 DCW (Rec: 07/25/21 15:14 DCW [id number]) OP-PT Subjective Patient Comments Patient Comments I was having a really hard time, but I've been dosing myself with asprin, and I'm doing better now. PT-OP-F Manual Assessment Start: 03/21/21 17:32 Freq: Status: Active Protocol: Document 06/06/21 16:05 DCW (Rec: 06/06/21 16:27 DCW [id number]) Manual Assessments Soft Tissue Assessment Soft Tissue Mobility Assessment Moderate-severe tightness with Tenderness to palpation 3/4: Wincing and withdraw along left ITB and insertion. Joint Mobility Assessment Joint Mobility Assessment Moderate patella grinding with left knee movement. Poor patellar tracking. PT-OP-K Range of Motion Start: 03/21/21 17:32 Freq: Status: Active Protocol: Document 06/06/21 16:05 DCW (Rec: 06/06/21 16:27 DCW [id number]) Knee Goniometric Range of Motion Knee Right Patient Position Sitting Flexion Active (degrees) 118 Extension Active (degrees) 5 Left Patient Position Sitting Flexion Active (degrees) 113 Extension Active (degrees) 6 PT-OP-L Special Tests Start: 03/21/21 17:32 Freq: Status: Active Protocol: Document 06/06/21 16:05 DCW (Rec: 06/06/21 16:27 DCW [id number]) Special Tests Knee Special Tests Patellar Grind Test Test Results Positive Left PT-OP-M Strength Start: 03/21/21 17:32 Freq: Status: Active Protocol: Document 06/06/21 16:05 DCW (Rec: 06/06/21 16:27 DCW [id number]) Knee Strength Knee Manual Muscle Testing Left Flexion (S2) 4+ Good+ Extension (L3) 4- Good- Comments Sudden empty end feel Right Flexion (S2) 4+ Good+ Extension (L3) 4+ Good+ PT-OP-Q Treatments Start: 03/21/21 17:32 Freq: Status: Active Protocol: Document 07/25/21 14:35 DCW (Rec: 07/25/21 15:14 DCW [id number]) Cardio Equipment Recumbent Bicycle Duration (Minutes) 6 Resistance 4 Seat Position 9 Gym Equipment Shuttle Recovery Bilateral Squats Details /c Adductor ball squeeze Resistance 100# Shuttle Recovery Platform Stable Reps/Time x20 Unilateral Squats Resistance 62# Shuttle Recovery Platform Stable Reps/Time x10 Therapeutic Exercises Supine Exercises 5 Supine Exercise Name ITB stretch /c strap Side bilateral 4 Supine Exercise Name Lower trunk rotations Equipment Used 55 cm ball 3 Supine Exercise Name Hamstring stretch Side bilateral Manual Therapy Treatment Soft Tissue Mobilization 1 Body Location ITB STM Mobilization Type Strumming,Trigger Point Release Joint Mobilizations 1 Joint L Patellofemoral Direction Sup/Inf Grade III Body Position Supine PT-OP-R Modalities Start: 03/21/21 17:32 Freq: Status: Active Protocol: Document 07/25/21 14:35 DCW (Rec: 07/25/21 15:14 DCW [id number]) Electric Stimulation Electric Stimulation Interferential Current (IFC) Body Location L knee Duration (Minutes) 15 Cycle Continuous Patient Position Supine Combined With Heat/Cold Hot Pack PT-OP-T Assessment and Plan Start: 03/21/21 17:32 Freq: Status: Active Protocol: Document 07/25/21 14:35 DCW (Rec: 07/25/21 15:14 DCW [id number]) Physical Therapy Assessment Impairments Impairments Activity Tolerance,Functional Activities,Functional Mobility ,Pain,ROM,Strength Goals Two Impairment Pt ambulates with antalgic gait using cane Fdc Goal (LTG) Pt to demonstrate ability to ambulate 1000' during a 6 MWT without an assistive device with no increased pain LTG Duration 08/01/21 One Impairment Pt does not have an appropriate home exercise program Short Term Goal (STG) Pt to be independent and compliant with an appropriate HEP STG Duration 07/06/21 Assessment Summary Assessment Pt still has not joined a gym, but reports she will go after her appointment today. Pt has reached progress plateau, discharged at this time to independent HEP. Physical Therapy Plan Frequency and Duration Frequency of Treatment 2x/Week Duration of Treatment 8 weeks Plan of Care Start Date 06/06/21 Plan of Care End Date 08/01/21 Therapeutic Interventions Therapeutic Interventions Home Exercise Program,Joint Mobilizations,Manual Therapy, Neuromuscular Re-education, Patient/Caregiver Education, Self-Care/Home Management,Soft Tissue Mobilization, Therapeutic Activities, Therapeutic Exercises Modalities Cold Pack/Ice Massage,Electric Stimulation,Hot Packs, Ultrasound Discharge Physical Therapy Discharge Reasons Plateau in Progress Next Visit Focus/Plan Next Note Type Progress Note
--- NOTE | 2021-10-06 15:07 | PT.OPDS ---
Current Diagnoses Chondromalacia patellae, left knee (07/25/21) Other disorders of patella, left knee (07/25/21) Pain in left knee (07/25/21) Pain in left leg (07/25/21) Visit Care Team Role Provider Type Wilian Booth MD Attending Provider Physician Primary Care Provider Referring Provider Specialty: Family Practice Address: [address] [place] [address], [facility] Email: [email or web address] Visit Number Visit Number 12 Discharge Summary PT-OP-B Current Condition Start: 03/21/21 17:32 Freq: Status: Active Protocol: Document 03/21/21 16:45 DCW (Rec: 03/21/21 17:44 DCW [id number]) Current Condition History of Current Condition Onset Date 02/06/21 Current Complaints Left knee pain, difficulty walking History of Current Condition Pt is a 60 year old female presenting with a 1.5 month history of left knee pain. Pt reports she was rushing to get to her flight to [facility] on , had to take her insulin, injected herself in her left thigh, and then drove to the airport. During her flight, she noticed worsening leg pain , and by the time she landed, couldn't put any weight on it, and had to have a wheelchair take her through the airport. Pt tried to walk it off, however was eventually taken to an urgent care clinic, who then sent her to the ER for CVT testing. Testing was negative, as was retesting when she returned to [place] . Pt notes she then saw her PCP, got an x-ray, and saw an Ortho, who gave her an injection, which has started it feeling a bit better, but she still requires a cane to get around. 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 Prior Treatments and Tests Left knee X-ray:IMPRESSION: Moderate tricompartmental osteoarthritis. No fracture or dislocation. Small to moderate joint effusion. Per: Irvin Roberts M.D. on 02/23/2021 Treatment Goals Patient/Caregiver Goals Improve left knee pain and mobility PT-OP-C Subjective Start: 03/21/21 17:32 Freq: Status: Active Protocol: Document 07/25/21 14:35 DCW (Rec: 07/25/21 15:14 DCW [id number]) OP-PT Subjective Patient Comments Patient Comments I was having a really hard time, but I've been dosing myself with asprin, and I'm doing better now. PT-OP-F Manual Assessment Start: 03/21/21 17:32 Freq: Status: Active Protocol: Document 06/06/21 16:05 DCW (Rec: 06/06/21 16:27 DCW [id number]) Manual Assessments Soft Tissue Assessment Soft Tissue Mobility Assessment Moderate-severe tightness with Tenderness to palpation 3/4: Wincing and withdraw along left ITB and insertion. Joint Mobility Assessment Joint Mobility Assessment Moderate patella grinding with left knee movement. Poor patellar tracking. PT-OP-K Range of Motion Start: 03/21/21 17:32 Freq: Status: Active Protocol: Document 06/06/21 16:05 DCW (Rec: 06/06/21 16:27 DCW [id number]) Knee Goniometric Range of Motion Knee Right Patient Position Sitting Flexion Active (degrees) 118 Extension Active (degrees) 5 Left Patient Position Sitting Flexion Active (degrees) 113 Extension Active (degrees) 6 PT-OP-L Special Tests Start: 03/21/21 17:32 Freq: Status: Active Protocol: Document 06/06/21 16:05 DCW (Rec: 06/06/21 16:27 DCW [id number]) Special Tests Knee Special Tests Patellar Grind Test Test Results Positive Left PT-OP-M Strength Start: 03/21/21 17:32 Freq: Status: Active Protocol: Document 06/06/21 16:05 DCW (Rec: 06/06/21 16:27 DCW [id number]) Knee Strength Knee Manual Muscle Testing Left Flexion (S2) 4+ Good+ Extension (L3) 4- Good- Comments Sudden empty end feel Right Flexion (S2) 4+ Good+ Extension (L3) 4+ Good+ PT-OP-T Assessment and Plan Start: 03/21/21 17:32 Freq: Status: Active Protocol: Document 07/25/21 14:35 DCW (Rec: 07/25/21 15:14 DCW [id number]) Physical Therapy Assessment Impairments Impairments Activity Tolerance,Functional Activities,Functional Mobility ,Pain,ROM,Strength Goals Two Impairment Pt ambulates with antalgic gait using cane Instructor Of Nursing Goal (LTG) Pt to demonstrate ability to ambulate 1000' during a 6 MWT without an assistive device with no increased pain LTG Duration 08/01/21 One Impairment Pt does not have an appropriate home exercise program Short Term Goal (STG) Pt to be independent and compliant with an appropriate HEP STG Duration 07/06/21 Assessment Summary Assessment Pt still has not joined a gym, but reports she will go after her appointment today. Pt has reached progress plateau, discharged at this time to independent HEP. Physical Therapy Plan Frequency and Duration Frequency of Treatment 2x/Week Duration of Treatment 8 weeks Plan of Care Start Date 06/06/21 Plan of Care End Date 08/01/21 Therapeutic Interventions Therapeutic Interventions Home Exercise Program,Joint Mobilizations,Manual Therapy, Neuromuscular Re-education, Patient/Caregiver Education, Self-Care/Home Management,Soft Tissue Mobilization, Therapeutic Activities, Therapeutic Exercises Modalities Cold Pack/Ice Massage,Electric Stimulation,Hot Packs, Ultrasound Discharge Physical Therapy Discharge Reasons Plateau in Progress Next Visit Focus/Plan Next Note Type Progress Note
== END 2021-10-10 13:12 ==
LOC: PHYS 14:30
PROVIDERS: PCP Family Medicine; Referring Provider Family Medicine; Visit Provider Family Medicine
DX: M79.605 Pain in left leg (principal); M25.562 Pain in left knee; M22.8X2 Other disorders of patella, left knee; M22.42 Chondromalacia patellae, left knee
CPT/HCPCS: 97014; 97110; 97140; 97161; G0283

== ENCOUNTER 2021-10-24 17:16 | Emergency (ER) | payer MEDICARE, OTHER, MEDICAID, SELFPAY ==
[2021-10-24] VITALS (7 sets, daily range): BP systolic 100–139; BP diastolic 57–80; PULSE 67–78; TEMP 36.2; O2SAT 97–100; BMI 38.8
--- NOTE | 2021-10-24 18:54 | ED_ITS ---
HPI - Abdominal Pain General Chief Complaint: Abdominal Pain Stated Complaint: SEVERE RIGHT FLANK PAIN Time Seen by Provider: 10/24/21 18:41 Source: patient Mode of arrival: Wheelchair History of Present Illness HPI narrative: 61-year-old female nonsmoker with history of sarcoid presents with her in the chief complaint of severe right flank pain that has been present off and on for quite some time, months if not years. She denies any specific provocation, palliation nor for completion. She denies any injury. She has had no fever or chills. She denies dysuria, frequency or urgency. She denies any chest pain, shortness of breath or cough. She denies any history of shingles. Related Data Home Medications Medication Instructions Recorded [facility] CPAP #1 ea 01/21/19 09/21/21 omeprazole 20 mg capsule,delayed 20 mg PO DAILY 08/11/21 09/21/21 release albuterol 90 mcg/actuation aerosol mcg INHALATION 09/21/21 09/21/21 inhaler cyclosporine 0.05 % eye drops drp EYE-BOTH 09/21/21 09/21/21 (Restasis MultiDose) fluticasone propionate 44 2 puff INHALATION QID g 09/21/21 09/21/21 mcg/actuation HFA aerosol inhaler (Flovent HFA) Previous Rx's Medication Instructions Recorded Syringes: Ultra Fine Insulin #1 ea 05/20/18 Syringe w/Needle metformin 500 mg 24 hr 2,000 mg PO QPM #360 tab 04/23/20 tablet,extended release insulin human U-100 NPH-regulr See Rx Instructions SUBCUT BID #4 08/10/20 70-30 mix 100 unit/mL subcutaneous vial susp (Humulin 70/30 U-100 Insulin) insulin syringe-needle U-100 1 mL See Rx Instructions .ROUTE 10/29/20 31 gauge x 15/64 (BD Veo Insulin .COMPLEX #100 each Syringe Ultra-Fine) Blood Glucose Monitor #1 ea 06/16/21 Lancets #120 ea 06/16/21 Blood glucose Test Strips #90 ea 06/28/21 triamcinolone acetonide 0.1 % 1 applic TOPICAL BID #80 g 07/10/21 topical cream metronidazole 0.75 % topical gel 1 applic TOPICAL BEDTIME 5 Days 07/18/21 #45 g clotrimazole 2 % vaginal cream 1 appful VAGINAL BEDTIME #45 g 07/25/21 (Clotrimazole-3) fluoxetine 20 mg tablet 20 mg PO DAILY #30 tab 08/04/21 empagliflozin 10 mg tablet 10 mg PO QAM #30 tab 08/16/21 (Jardiance) lisinopril 20 See Rx Instructions .ROUTE 09/20/21 mg-hydrochlorothiazide 12.5 mg .COMPLEX #90 tab tablet erythromycin 500 mg tablet 500 mg PO TID #30 tab 09/21/21 Allergies Allergy/AdvReac Type Severity Reaction Status Date / Time hazelnut [HAZELNUT] Allergy Intermediate HIVES Verified 10/24/21 17:30 diclofenac [From Voltaren] Allergy Mild hives and Verified 10/24/21 17:30 asthma fluconazole [FLUCONAZOLE] Allergy Mild skin Verified 10/24/21 17:30 reaction hydrocodone [HYDROCODONE] Allergy Mild nausea Verified 10/24/21 17:30 latex [LATEX] Allergy Mild unknown Verified 10/24/21 17:30 morphine [MORPHINE] Allergy Mild too Verified 10/24/21 17:30 tired, knocks me out nitroglycerin [NITROGLYCERIN] Allergy Mild unknown Verified 10/24/21 17:30 Penicillins [PENICILLINS] Allergy Mild hives Verified 10/24/21 17:30 prednisone [PREDNISONE] Allergy Mild swelling Verified 10/24/21 17:30 sulfamethoxazole Allergy Mild hives Verified 10/24/21 17:30 [From BACTRIM] trimethoprim [From BACTRIM] Allergy Mild internal Verified 10/24/21 17:30 hives iodine [IODINE] Allergy Unknown Verified 10/24/21 17:30 wheat AdvReac Intermediate Gluten Verified 10/24/21 17:30 sensitive cashews Allergy Mild throat Uncoded 08/16/21 14:27 tightened, severe reflux Review of Systems Review of Systems Narrative: GENERAL: Denies chills, fatigue, malaise, fever, sweats. HEENT: Denies sinus pain, ear pain, sore throat, difficulty swallowing, dizziness. RESPIRATORY: Denies dyspnea, cough, wheezing, hemoptysis, sputum. CARDIOVASCULAR: Denies chest pain, palpitations, orthopnea, edema, GASTROINTESTINAL: Denies nausea, vomiting, abdominal pain, diarrhea, constipation, melena. : Denies dysuria, frequency, incontinence, hematuria, urinary retention. MUSCULOSKELETAL: See HPI SKIN: Denies rash, skin lesions, or other NEUROLOGIC: Denies weakness, headache, numbness, change in speech, confusion, seizures, incoordination. PSYCHIATRIC: No concerning psychosocial issues. 12 point review of systems is negative except for those stated above Patient History Medical History Abnormal chest xray (~2002) Abscess of right groin Acne (~2004) Anemia Ankle pain (~2012) Arthritis Asthma Asthma (~1997) Autoimmune disorder Behaviorally induced insufficient sleep syndrome Carpal tunnel syndrome (~1996) Chest pain Controlled type 2 diabetes mellitus (08/02/15) Diabetes mellitus DKA, type 1 Eczema (~1997) Edema Elevated troponin Encounter for routine gynecological examination with Papanicolaou smear of cervix Encounter for well woman exam with abnormal findings Feeling of incomplete bladder emptying Fibromyalgia (10/07/15) Foot pain (~2012) Fractures (~1987) Gastric ulcer Headache HTN (hypertension) Left arm pain Left knee sprain Leg injury (~2014) Lipoma Lower back pain Lymphadenopathy (03/05/17) Malignant neoplasm of uterus (08/02/15) Mastodynia Morbid obesity with body mass index of 40.0-49.9 Multiple somatic complaints Obstructive sleep apnea of adult Rheumatoid aortitis Right hip pain Sarcoidosis (~2004) Shoulder pain (~2001) Sore throat (10/07/15) Upper respiratory infection Urinary hesitancy Uterine cancer Vision disorder Surgical History Anesthesia History of carpal tunnel repair Status post biopsy Status post biopsy Status post colonoscopy Status post hemorrhoidectomy Status post hysterectomy Family History Grandfather Heart disease Hypertension High cholesterol Grandmother Heart disease Hypertension Mother Age: 78 Diabetes mellitus Renal failure UTI (urinary tract infection) Grandfather Dementia Grandmother Dementia Father No problems noted. Social History marital status: number of children: 1 occupational status: unemployed Smoking Status: Never smoker alcohol intake: current substance use type: does not use caffeine: Yes Smoking Status: Never smoker alcohol intake frequency: holidays/special occasions only Substance Use Type: does not use Exam Narrative Exam Narrative: GENERAL: [61 year old patient appears stated age. Well-developed patient, in mild distress. HEAD: Atraumatic. Normocephalic. EYES: Pupils equal round and reactive. Extraocular motions intact. No scleral icterus. No injection or drainage. ENT: Nose without bleeding, purulent drainage. Throat without erythema, tonsil lar hypertrophy or exudate. Airway patent. NECK: Trachea midline. Non tender CARDIOVASCULAR: Regular rate and rhythm without murmurs, gallops, or rubs. RESPIRATORY: Clear to auscultation. Breath sounds equal bilaterally. No wheezes, rales, or rhonchi. GASTROINTESTINAL: Abdomen soft, non-tender, nondistended. EXTREMITIES: No edema or joint tenderness. BACK: Mildly tender to palpation in the right posterior flank, no erythema, warmth or swelling. No obvious external manifestation of injury or illness. No blisters or rash. No subcu emphysema NEURO: AOx3. SKIN: No rash or erythema of visible areas Initial Vital Signs Initial Vital Signs: Vital Signs Temperature 97.2 F L 10/24/21 17:30 Pulse Rate 78 10/24/21 17:30 Blood Pressure 122/73 10/24/21 17:30 Pulse Oximetry 97 10/24/21 17:30 Course Orders Ordered: ED Orders 10/24/21 19:40 CBC Auto Diff [Complete Blood Count AUTO DIFF] Stat CMP [Comprehensive Metabolic Panel] Stat 10/24/21 20:17 CT abdomen pelvis w con Stat Discontinued Medications Diphenhydramine HCl (Diphenhydramine 50 Mg/Ml Vial) 25 mg IV NOW ONE Stop: 10/24/21 20:25 Last Admin: 10/24/21 20:36 Dose: 25 mg Documented by: MEKHI Sodium Chloride (Normal Saline 0.9%) 1,000 mls @ 125 mls/hr IV CONT ADRIANO Last Infusion: 10/24/21 21:38 Dose: 0 mls/hr Documented by: Admin: 10/24/21 19:51 Dose: 125 mls/hr Documented by: ARNULFO Methylprednisolone (Methylprednisolone 125 Mg/2 Ml Vial) 125 mg IV NOW ONE Stop: 10/24/21 20:25 Last Admin: 10/24/21 20:35 Dose: 125 mg Documented by: MEKHI Vital Signs Vital signs: Vital Signs - 8 hr 10/24/21 17:30 10/24/21 19:54 10/24/21 19:56 Temperature 97.2 F L Pulse Rate 78 74 74 Blood Pressure 122/73 100/57 L Pulse Oximetry 97 100 99 10/24/21 20:00 10/24/21 20:30 10/24/21 21:00 Temperature Pulse Rate 71 67 70 Blood Pressure 108/69 139/80 Pulse Oximetry 98 99 100 10/24/21 21:30 Temperature Pulse Rate 67 Blood Pressure Pulse Oximetry 100 MDM - Abdominal Pain Lab Data Result diagrams: 10/24/21 19:40 10/24/21 19:40 Labs: Lab Results 10/24/21 10/24/21 Range/Units 19:40 19:40 WBC 12.1 H (4.5-11.0) X10^3/uL RBC 5.22 H (4.0-5.2) X10^6/uL Hgb 12.9 (12.0-16.0) g/dL Hct 39.6 (36-46) % MCV 75.8 L (80-100) fL MCH 24.6 L (26-34) PG MCHC 32.5 (30-36) % RDW 15.4 H (11.6-14.8) % Plt Count 256 (150-400) X10^3/uL Neut % (Auto) 63.9 (50-75) % Lymph % (Auto) 27.5 (25-40) % [place] % (Auto) 5.5 (3-14) % Eos % (Auto) 2.0 (2-4) % Baso % (Auto) 1.1 (0-2) % Neut # (Auto) 7700 H (0357-1572) /uL Lymph # (Auto) 3300 (2937-6222) /uL [place] # (Auto) 700 (0-900) /uL Eos # (Auto) 200 (0-450) /uL Baso # (Auto) 100 (0-100) /uL Sodium 139 (137-145) mmol/L Potassium 3.7 (3.4-5.1) mmol/L Chloride 100 (98-107) mmol/L Carbon Dioxide 32 (22-32) mmol/L BUN 15 (7-17) mg/dL Creatinine 0.97 (0.52-1.04) mg/dL Estimated GFR 58.6 L (>60) mL/min BUN/Creatinine Ratio 15.5 (6-22) Glucose 159 H (80-110) mg/dL Calcium 9.5 (8.4-10.2) mg/dL Total Bilirubin 0.6 (0.2-1.3) mg/dL AST 29 (14-36) IU/L ALT 24 (<35) IU/L Alkaline Phosphatase 122 (38-126) U/L Total Protein 9.2 H (6.3-8.2) g/dL Albumin 4.4 (3.5-5.0) g/dL Globulin 4.8 H (1.7-4.1) g/dL Albumin/Globulin Ratio 0.9 L (1.0-2.8) Point of care testing: Urine Dip Bedside Urine Glucose 2000+ mg/dl Bedside Urine Bilirubin - Negative Bedside Urine Ketone - Negative Urine Specific [place] 1.015 Bedside Urine Occult Blood - Negative Bedside Urine pH 6 Bedside Urine Protein - Negative Bedside Urine Urobilinogen - Negative Bedside Urine Nitrite - Negative Bedside Urine Leukocytes - Negative Esterase Imaging Data CT scan - abdomen/pelvis: Radiologist's Impression: [place] [address] CT Scan Report Signed Patient: Daniel Krishnamurthy MR#: [id number] : 1960 Acct:[id number] Age/Sex: 61 / F Date of Service: 10/24/21 Loc: ED Accession Number: [id number] ?? Procedure: CT abdomen pelvis w con Ordering Provider: Bautista Ramírez D.O. PROCEDURE:? CT ABDOMEN PELVIS W CON ? INDICATIONS:? severe flank pain ? TECHNIQUE:? After the administration of oral and IV contrast, axial sections were acquired from the lung bases to the pubic symphysis.? Coronal and sagittal reformats were performed.? For radiation dose reduction, the following was used:? automated exposure control, adjustment of mA and/or kV according to patient size. ? COMPARISON:? [facility], CT, CT ABDOMEN PELVIS W CON, 08/05/2020, 19:31. ? FINDINGS:? Image quality:? Excellent.? ? Lung bases:? Bilateral linear areas of scarring are redemonstrated as well scattered indistinct ground-glass opacities which appear similar to the prior study and may reflect sequelae of chronic interstitial lung disease. Heart:? Heart is normal in size. ? ? ABDOMEN: Liver:? No mass lesion. Gallbladder:? Within normal limits without calcified gallstones.? ? Biliary ducts:? No biliary ductal dilatation.? ? Pancreas:? Unremarkable.? ? Spleen:? Normal in size.? ? Adrenal Glands:? No adrenal nodules.? ? Kidneys and Ureters:? No hydronephrosis.? ? ? Stomach and Bowel:? Stomach, small bowel loops, and colon are normal in caliber and wall thickness.? No pericecal inflammatory changes to suggest appendicitis.? There are few colonic diverticula without acute diverticulitis.? Peritoneum:? No abnormal intraperitoneal fluid.? No free air.? ? Ventral Wall: ? No hernia.? Abdominal Nodes:? A few mildly enlarged mesenteric lymph nodes are redemonstrated including a account representative left celiac axis node measuring up to 1.1 cm on series 2, image 20 which appears slightly decreased from 1.2 cm on the prior study.? A account representative peripancreatic node measures up to 1.0 cm on series 2, image 24 decreased from 1.5 cm previously. Vessels:? Aorta and inferior vena cava are normal in size.? ? PELVIS: Pelvic Organs:? The uterus is surgically absent.? ? Bladder:? The urinary bladder is partially distended. Pelvic Nodes: No enlarged lymph nodes.? Miscellaneous: No inguinal hernias are seen. ? ? ? Bones:? Visualized osseous structures demonstrate no suspicious focal lesions. ? IMPRESSION:? ? 1. No definite acute intra-abdominal abnormality.? Specifically, no evidence of nephrolithiasis or obstructive uropathy. ? 2. Colonic diverticulosis without acute diverticulitis. ? ? ? Dictated by: Woody Abbott M.D. on 10/24/2021 at 21:14 ? ? Approved by: Woody Abbott M.D. on 10/24/2021 at 21:22 ? Discharge Plan Departure Patient Disposition: Home Clinical Impression: Acute flank pain Activity Restrictions/Additional Instructions: *You have been diagnosed with [acute on conical right flank pain. As we discussed, your history and physical exam as well as lab work and imaging is very reassuring. There is no evidence of any significant diagnosis that would require a specific treatment *What to do: *Please continue to take your regular medications as directed. [ ] New medication prescriptions sent to your pharmacy: [ ] [ ] New medication written as a paper prescription [ ] No new medications given *Please follow up with your primary care provider in 2-3 days, call for an appointment. Let them know you were seen in the Emergency Department and that we ask that you be seen in follow up. We will electronically transmit a record of today's note if your PCP is in our system *If you do not have a primary care provider please contact the [facility] Resource line at [phone]. They will ask some questions about your medical history and help get you set up with a doctor in the community. *Return to Emergency Department if you should have any new, worsening or concerning symptoms, such as [fever greater than 101 F, shaking chills, worsening pain, persistent vomiting or other bothersome symptoms] Prescriptions: No Action Humulin 70/30 U-100 Insulin 100 unit/mL (70-30) suspension See Rx Instructions SUBCUT BID Qty: 4 3RF Hold Instructions: patient stopped 04/26 Dose Instruction: 40 units SUBCUT BID; Rx Instructions: 40 units subq twice daily triamcinolone acetonide 0.1 % cream 1 applic topical BID Qty: 80 0RF omeprazole 20 mg capsule,delayed release(DR/EC) 20 mg PO DAILY 0RF Restasis MultiDose 0.05 % drops EYE-BOTH 0RF Flovent HFA 44 mcg/actuation HFA aerosol inhaler 2 puff inhalation QID 0RF Rx Instructions: administer with spacer - prescribed by ENT albuterol 90 mcg/actuation aerosol inhalation 0RF erythromycin 500 mg tablet 500 mg PO TID Qty: 30 0RF (DME) Syringes: Ultra Fine Insulin Syringe w/Needle 0 .Route .MEDSUPPLY Qty: 1 5RF Dose Instruction: As directed Rx Instructions: As directed metformin 500 mg tablet,ER maci.retention 24 hr 2,000 mg PO QPM Qty: 360 3RF Hold Instructions: patient stopped in 04/26 Rx Instructions: Take four tablets each evening with dinner. insulin syringe-needle U-100 [BD Veo Insulin Syringe UF] 1 mL 31 gauge x 15/64 syringe See Rx Instructions .ROUTE .COMPLEX Qty: 100 12RF Hold Instructions: patient stopped approx 04/26 Dose Instruction: USE TWICE DAILY FOR INJECTIONS Rx Instructions: USE TWICE DAILY FOR INJECTIONS (DME) Blood Glucose Monitor See Rx Instructions .Route .MEDSUPPLY Qty: 1 0RF Rx Instructions: Use to check blood glucose levels 4 times daily (DME) Lancets See Rx Instructions .Route .MEDSUPPLY Qty: 120 11RF Rx Instructions: Use new Lancet each time you check blood glucose levels 4 times daily (DME) Blood glucose Test Strips See Rx Instructions .Route .MEDSUPPLY Qty: 90 11RF Rx Instructions: As directed metronidazole 0.75 % gel 1 applic topical BEDTIME 5 Days Qty: 45 1RF Rx Instructions: 1 applicatorful at bedtime daily x5 days Clotrimazole-3 2 % cream 1 appful vaginal BEDTIME Qty: 45 0RF fluoxetine 20 mg tablet 20 mg PO DAILY Qty: 30 3RF lisinopril-hydrochlorothiazide 20-12.5 mg tablet See Rx Instructions .ROUTE .COMPLEX Qty: 90 0RF Dose Instruction: Take 1 tablet by mouth once daily Rx Instructions: Take 1 tablet by mouth once daily Jardiance 10 mg tablet 10 mg PO QAM Qty: 30 3RF Hold Instructions: hasn't started it yet Rx Instructions: Take 1 tab by mouth each morning with food for NIDDM (DME) Respironics Dreamstation CPAP Qty: 1 0RF Dose Instruction: As directed Label Comments: Pressure: 6-12 cmH2O DME: [facility] Rx Instructions: As directed Referrals: Wilian Booth MD [Primary Care Provider] -
--- NOTE | 2021-10-24 19:27 | PC.NURSE ---
Pt up and walking to the bathroom with a steady gait.
[2021-10-24 19:42] LABS: Add Manual Diff / Slide Review NO; Basophils Absolute Auto 100 /uL (0-100); Basophils Percent Auto 1.1 % (0-2); Eosinophils Absolute Auto 200 /uL (0-450); Hematocrit 39.6 % (36-46); Hemoglobin 12.9 g/dL (12.0-16.0); Lymphocytes Absolute Auto 3300 /uL (1100-4500); Lymphocytes Percent Auto 27.5 % (25-40); Mean Corpuscular HGB Conc 32.5 % (30-36); Mean Corpuscular Hemoglobin 24.6 PG (26-34); Mean Corpuscular Volume 75.8 fL (80-100); Monocytes Absolute Auto 700 /uL (0-900); Monocytes Percent Auto 5.5 % (3-14); Neutrophils Absolute Auto 7700 /uL (1500-7000); Neutrophils Percent Auto 63.9 % (50-75); Platelet Count 256 X10^3/uL (150-400); Red Blood Cell Count 5.22 X10^6/uL (4.0-5.2); Red Cell Distribution Width 15.4 % (11.6-14.8); White Blood Cell Count 12.1 X10^3/uL (4.5-11.0)
[2021-10-24] MEDS: SODIUM CHLORIDE 0.9% 1,000 ML 125 ML IV (19:51)
[2021-10-24 20:08] LABS: Alanine Aminotransferase 24 IU/L (<35); Albumin 4.4 g/dL (3.5-5.0); Albumin Globulin Ratio 0.9 (1.0-2.8); Alkaline Phosphatase 122 U/L (38-126); Aspartate Aminotransferase 29 IU/L (14-36); BUN Creatinine Ratio 15.5 (6-22); Bilirubin Total 0.6 mg/dL (0.2-1.3); Blood Urea Nitrogen 15 mg/dL (7-17); Calcium 9.5 mg/dL (8.4-10.2); Carbon Dioxide 32 mmol/L (22-32); Chloride 100 mmol/L (98-107); Estimated Glomerular Filt Rate 58.6 mL/min (>60); Globulin 4.8 g/dL (1.7-4.1); Glucose 159 mg/dL (80-110); HEMOLYSIS < 15 (0-50); Potassium 3.7 mmol/L (3.4-5.1); Sodium 139 mmol/L (137-145); Total Protein 9.2 g/dL (6.3-8.2)
--- NOTE | 2021-10-24 20:17 | DI.CT.S_ITS ---
PROCEDURE: CT ABDOMEN PELVIS W CON INDICATIONS: severe flank pain TECHNIQUE: After the administration of oral and IV contrast, axial sections were acquired from the lung bases to the pubic symphysis. Coronal and sagittal reformats were performed. For radiation dose reduction, the following was used: automated exposure control, adjustment of mA and/or kV according to patient size. COMPARISON: [facility], CT, CT ABDOMEN PELVIS W CON, 08/05/2020, 19:31. FINDINGS: Image quality: Excellent. Lung bases: Bilateral linear areas of scarring are redemonstrated as well scattered indistinct ground-glass opacities which appear similar to the prior study and may reflect sequelae of chronic interstitial lung disease. Heart: Heart is normal in size. ABDOMEN: Liver: No mass lesion. Gallbladder: Within normal limits without calcified gallstones. Biliary ducts: No biliary ductal dilatation. Pancreas: Unremarkable. Spleen: Normal in size. Adrenal Glands: No adrenal nodules. Kidneys and Ureters: No hydronephrosis. Stomach and Bowel: Stomach, small bowel loops, and colon are normal in caliber and wall thickness. No pericecal inflammatory changes to suggest appendicitis. There are few colonic diverticula without acute diverticulitis. Peritoneum: No abnormal intraperitoneal fluid. No free air. Ventral Wall: No hernia. Abdominal Nodes: A few mildly enlarged mesenteric lymph nodes are redemonstrated including a sales representative printing left celiac axis node measuring up to 1.1 cm on series 2, image 20 which appears slightly decreased from 1.2 cm on the prior study. A sales representative printing peripancreatic node measures up to 1.0 cm on series 2, image 24 decreased from 1.5 cm previously. Vessels: Aorta and inferior vena cava are normal in size. PELVIS: Pelvic Organs: The uterus is surgically absent. Bladder: The urinary bladder is partially distended. Pelvic Nodes: No enlarged lymph nodes. Miscellaneous: No inguinal hernias are seen. Bones: Visualized osseous structures demonstrate no suspicious focal lesions. IMPRESSION: 1. No definite acute intra-abdominal abnormality. Specifically, no evidence of nephrolithiasis or obstructive uropathy. 2. Colonic diverticulosis without acute diverticulitis. Dictated by: Woody Abbott M.D. on 10/24/2021 at 21:14 Approved by: Woody Abbott M.D. on 10/24/2021 at 21:22
[2021-10-24] MEDS: methylPREDNISolone 125 MG/2 ML VIAL IV (20:35)
[2021-10-24] MEDS: diphenhydrAMINE 50 MG/ML VIAL 25 MG IV (20:36)
--- NOTE | 2021-10-24 20:46 | PC.NURSE ---
Pt premedicated for iodine allergy, now to CT scan .
== END 2021-10-24 21:44 | disposition home or self-care (01) ==
PROVIDERS: Emergency Provider Emergency Medicine; PCP Family Medicine
DX: R10.9 Unspecified abdominal pain (principal)
CPT/HCPCS: 36415; 74177; 80053; 81003; 85025; 96361; 96374; 96375; 99284; J1200; J2930; Q9967

== ENCOUNTER → 2021-11-15 12:38 | Outpatient (CLI) | payer MEDICARE, OTHER, MEDICAID, SELFPAY ==
[2021-11-15 13:50] LABS: Amylase 129 U/L (30-110); Lipase 204 U/L (23-300)
== END ==
PROVIDERS: PCP Family Medicine; Referring Provider Physician Assistant; Visit Provider Physician Assistant
DX: R10.11 Right upper quadrant pain (principal)
CPT/HCPCS: 36415; 82150; 83690

== ENCOUNTER → 2021-12-07 12:37 | Outpatient (CLI) | payer MEDICARE, OTHER, MEDICAID, SELFPAY ==
--- NOTE | 2021-12-08 11:15 | DIAB.MNT ---
Initial Diabetes Medical Nutrition Therapy Assessment Name: Daniel Krishnamurthy Date: 12/07/21 Time: 120-225p Dx: Type II Diabetes Provider: Ish Sanchez presents today for initial visit regarding T2Dm with her , [place]. Reports FH of DM: maternal hx with mother and aunt, daughter with PDM. Reports PMH of DM since 2017. States this diagnosis occurred after prednisone tx. Previously lost 40# with wt loss program and walking 5mi/d. This included tracking foods, which she found helpful. Then her pain increased and this was discontinued. Reports poor sleep. May fall asleep on the couch and wake in the early childhood worker. States she has been experiencing depression since sister in 2019. Plans for Bariatric surgery, RYGB. Starts seeing RD for RYGB this month. No reported goal for HgA1c prior to procedure. States BG were much better when she was eating early dinner. Took a BG in clinic, 1 hr pc 202mg/dL after one large pancake, brisket, eggs, cheese, seltzer and coffee with sweetened creamer. Endorses inconsistent eating schedule, grazing. Diet Recall: B: [place] citizen ; fruit bowl melon ; matza with butter, coffee +/- chocolate in coffee snacks through the day: popcorn, chips, sandwich, nutrition shake (50g CHO) D: chx and rice with veggie ; pasta with meat sauce ; fish with veggies and baked potato Has reduced ETOH to 1-3 per month. Anthropometrics: Ht: 5'9 Wt: 273#last PCP Physical Activity: no current program comes in stages. Likes to hike. Use to like to walk dog, but dog passed 8 years ago. Reduced her activity. Self-Monitoring Blood Glucose: Variable FBG, some close to goal. 5/6 elevated FBG. limited pc readings available, mostly elevated. Bolded readings elevated below per ADA guidelines. Denies any hypoglycemia recently. Date Pre Post Pre Post Pre Post HS 11/29 178 11/30 138 12/01 136 12/02 186 12/05 236 288 12/06 192 12/07 126 202 Diabetes Medications: 10 mg Jardiance 70/30 insulin 40u BID Pertinent Labs: HgA1c 07/2021: 9.6% H 12/2020: 9.4% H 06/2020: 9.4% H 02/2020: 7.8% H 08/2019: 9.2% H Past Medical History: (Last Updated 12/07/21 @ 10:39 by HEMA Geronimo) Abnormal chest xray (~2002) Abscess of right groin Acne (~2004) Anemia Ankle pain (~2012) Arthritis Asthma Asthma (~1997) Autoimmune disorder Behaviorally induced insufficient sleep syndrome Carpal tunnel syndrome (~1996) Chest pain Controlled type 2 diabetes mellitus (08/02/15) Diabetes mellitus DKA, type 1 Eczema (~1997) Edema Throughout my body Elevated troponin Encounter for routine gynecological examination with Papanicolaou smear of cervix Encounter for well woman exam with abnormal findings Feeling of incomplete bladder emptying Fibromyalgia (10/07/15) Foot pain (~2012) Fractures (~1987) Gastric ulcer Headache HTN (hypertension) Hypertension Left arm pain Left knee sprain Leg injury (~2014) Left leg Lipoma Lower back pain Lymphadenopathy (03/05/17) Malignant neoplasm of uterus (08/02/15) Mastodynia Morbid obesity with body mass index of 40.0-49.9 Multiple somatic complaints Obstructive sleep apnea of adult Rheumatoid aortitis Right hip pain Sarcoidosis (~2004) Shoulder pain (~2001) Sore throat (10/07/15) Upper respiratory infection Urinary hesitancy Uterine cancer Vision disorder Nutrition Rx: Carbohydrates: Daily:130-165g Meal:30-45g Snack:15-30g Nutrition Diagnosis: - Predicted excessive CHO intake r/t grazing on mostly carb foods during the day aeb pt report, diet recall, elevated BG and HgA1c -Physical inactivity r/t pain barrier and stage of change aeb pt report Intervention: This participant was very receptive. Provided appropriate educational handouts. Discussed the following topics: Completed intake assessment. Discussed barriers to care. Plate Method Consistent eating patterns, eating q 3-5 hours Prioritizing protein, especially fro RYGB Different protein shake options Role of physical activity and following guidelines for safety Created SMART goals for patient self-care and success. Goals: Track food intake- new Try lower carb protein shake- new Follow-up: [facility] follow-up in 4 weeks Paula Schultz RDN, CRISTEL Certified Diabetes Care and Facility Technician P: [phone] Thank you for this referral
== END ==
PROVIDERS: PCP Family Medicine; Referring Provider Family Medicine; Visit Provider Family Medicine
DX: E11.65 Type 2 diabetes mellitus with hyperglycemia (principal); Z71.3 Dietary counseling and surveillance; Z79.84 Long term (current) use of oral hypoglycemic drugs; Z79.4 Long term (current) use of insulin
CPT/HCPCS: 97802

== ENCOUNTER → 2021-12-30 10:21 | Outpatient (CLI) | payer MEDICARE, OTHER, MEDICAID, SELFPAY ==
[2021-12-30 11:04] LABS: Add Manual Diff / Slide Review NO; Basophils Absolute Auto 100 /uL (0-100); Basophils Percent Auto 0.5 % (0-2); Eosinophils Absolute Auto 300 /uL (0-450); Eosinophils Percent Auto 2.9 % (2-4); Hematocrit 37.6 % (36-46); Hemoglobin 12.2 g/dL (12.0-16.0); Lymphocytes Absolute Auto 2600 /uL (1100-4500); Lymphocytes Percent Auto 24.6 % (25-40); Mean Corpuscular HGB Conc 32.5 % (30-36); Mean Corpuscular Hemoglobin 24.7 PG (26-34); Mean Corpuscular Volume 75.8 fL (80-100); Monocytes Absolute Auto 500 /uL (0-900); Monocytes Percent Auto 4.6 % (3-14); Neutrophils Absolute Auto 7000 /uL (1500-7000); Neutrophils Percent Auto 67.4 % (50-75); Platelet Count 246 X10^3/uL (150-400); Red Blood Cell Count 4.95 X10^6/uL (4.0-5.2); Red Cell Distribution Width 15.2 % (11.6-14.8); White Blood Cell Count 10.4 X10^3/uL (4.5-11.0)
[2021-12-30 11:10] LABS: Hemoglobin A1C% w Est Avg Glu 10.2 % (4.0-6.0)
[2021-12-30 12:17] LABS: Cholesterol 233 mg/dL (140-199); HDL Cholesterol 49 mg/dL (40-60); LDL Cholesterol Calculated 163 mg/dL (<100); Triglycerides 103 mg/dL (35-150)
[2021-12-30 12:19] LABS: C-Reactive Protein Quant 3.7 mg/dL (<1.0)
[2021-12-30 12:46] LABS: Thyroid Stimulating Hormone 1.86 uIU/mL (0.47-4.68)
[2021-12-31 06:31] LABS: Thyroid Peroxidase Antibodies 231 IU/mL (0-34)
== END ==
PROVIDERS: Naturopath; PCP Family Medicine; Referring Provider Physician Assistant; Visit Provider Physician Assistant
DX: E11.40 Type 2 diabetes mellitus with diabetic neuropathy, unspecified (principal); D64.9 Anemia, unspecified; E04.1 Nontoxic single thyroid nodule; E11.42 Type 2 diabetes mellitus with diabetic polyneuropathy; E11.65 Type 2 diabetes mellitus with hyperglycemia; E66.01 Morbid (severe) obesity due to excess calories; I10 Essential (primary) hypertension
CPT/HCPCS: 36415; 80061; 83036; 84443; 85025; 86140; 86376

== ENCOUNTER → 2022-01-09 16:08 | Outpatient (CLI) | payer MEDICARE, OTHER, MEDICAID, SELFPAY | PROVIDERS: PCP Family Medicine; Visit Provider Nurse Practitioner | DX: N76.0 Acute vaginitis (principal) | CPT/HCPCS: 87070; 87077; 87147; 87205 ==

== ENCOUNTER → 2022-01-18 07:05 | Outpatient (CLI) | payer MEDICARE, OTHER, MEDICAID, SELFPAY ==
--- NOTE | 2022-01-18 07:08 | DI.MG.S_ITS ---
BILATERAL DIGITAL SCREENING MAMMOGRAM 3D/2D WITH CAD: 01/18/2022 CLINICAL: Routine screening. Family history of breast cancer. Comparison is made to exams dated: 07/28/2020 mammogram, 11/07/2018 mammogram, and 12/20/2017 mammogram - [facility]. There are scattered fibroglandular elements in both breasts. Current study was also evaluated with a Computer Aided Detection (CAD) system. No significant masses, calcifications, or other findings are seen in either breast. There has been no significant interval change. IMPRESSION: NEGATIVE There is no mammographic evidence of malignancy. A 1 year screening mammogram is recommended. This exam was interpreted at Station ID: [id number]. NOTE: For mammograms, a report in lay terms will be sent to the patient. Approximately 15% of breast malignancies will not be visualized mammographically. In the management of a palpable breast mass, a negative mammogram must not discourage biopsy of a clinically suspicious lesion. Electronically Signed By: Wilian Gibbons M.D., jr/trent:01/18/2022 11:16:25 copy to: Wilian Booth letter sent: Normal Exam ACR BI-RADS Category 1: Negative 3341F
--- NOTE | 2022-01-18 07:08 | DI.NM.S_ITS ---
PROCEDURE: NM HIDA WITH CCK PHARMACEUTICAL: 5.1 mCi Tc-99m mebrofenin IV; 2.5 mcg CCK IV. INDICATIONS: right sided back and UQ pain; nausea TECHNIQUE: Following intravenous administration of Tc-99m mebrofenin, sequential anterior abdominal images were obtained. To evaluate the contractile response of the gallbladder in response to Cholecystokinin (CCK), sincalide (0.02 ?g/kg) was administered by slow intravenous infusion approximately 60 minutes after the administration of the radiopharmaceutical. Sequential imaging was continued for 30 minutes after the start of CCK infusion. Gallbladder ejection fraction was calculated. COMPARISON: [facility], US, US ABDOMEN LIMITED, 06/01/2021, 12:29. [facility], CT, CT ABDOMEN PELVIS W CON, 10/24/2021, 20:25. FINDINGS: Biliary scan: There is normal tracer uptake and excretion by the liver. There is normal visualization of the intrahepatic ducts, common bile duct, and gallbladder. There is normal tracer transit into the duodenum. CCK stimulation: There is normal contractile response of the gallbladder to CCK infusion. The calculated gallbladder ejection fraction is 94%; normal values are above 35%. IMPRESSION: 1. Normal filling of gallbladder. No evidence for acute cholecystitis. 2. Normal contractile response of gallbladder to CCK stimulation. Dictated by: Dino Stevens M.D. on 01/18/2022 at 11:16 Approved by: Dino Stevens M.D. on 01/18/2022 at 11:18
== END ==
PROVIDERS: PCP Family Medicine; Referring Provider Physician Assistant; Visit Provider Physician Assistant
DX: Z12.31 Encounter for screening mammogram for malignant neoplasm of breast (principal); Z80.3 Family history of malignant neoplasm of breast; R10.11 Right upper quadrant pain
CPT/HCPCS: 77063; 77067; 78227; A9537; J2805

== ENCOUNTER → 2022-02-08 11:28 | Outpatient (CLI) | payer MEDICARE, OTHER, MEDICAID, SELFPAY ==
[2022-02-08 12:45] LABS: Hemoglobin A1C% w Est Avg Glu 11.3 % (4.0-6.0)
[2022-02-08 12:59] LABS: BUN Creatinine Ratio 18.3 (6-22); Blood Urea Nitrogen 17 mg/dL (7-17); Calcium 9.1 mg/dL (8.4-10.2); Carbon Dioxide 32 mmol/L (22-32); Chloride 99 mmol/L (98-107); Estimated Glomerular Filt Rate > 60 mL/min (>60); Glucose 338 mg/dL (80-110); HEMOLYSIS < 15 (0-50); Potassium 4.6 mmol/L (3.4-5.1); Sodium 138 mmol/L (137-145)
== END ==
PROVIDERS: PCP Family Medicine; Referring Provider Physician Assistant; Visit Provider Physician Assistant
DX: E11.40 Type 2 diabetes mellitus with diabetic neuropathy, unspecified (principal); E11.65 Type 2 diabetes mellitus with hyperglycemia; I10 Essential (primary) hypertension
CPT/HCPCS: 36415; 80048; 83036

== ENCOUNTER → 2022-04-07 13:17 | Outpatient (CLI) | payer MEDICARE, OTHER, MEDICAID, SELFPAY ==
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
== END ==
PROVIDERS: PCP Family Medicine; Referring Provider Family Medicine; Visit Provider Family Medicine
DX: E11.9 Type 2 diabetes mellitus without complications (principal); Z71.3 Dietary counseling and surveillance
CPT/HCPCS: G0108

== ENCOUNTER → 2022-04-26 16:43 | Outpatient (CLI) | payer MEDICARE, OTHER, MEDICAID, SELFPAY ==
--- NOTE | 2022-04-26 16:47 | DI.RAD.S_ITS ---
PROCEDURE: XR SKULL<4V INDICATIONS: New deformity R anterior of midline TECHNIQUE: 3 view(s) of the skull acquired. COMPARISON: None. FINDINGS: Bones: No fractures. No suspicious bony lesions. Visualized sinuses appear clear. Soft tissues: No soft tissue calcifications. No suspicious soft tissue densities. IMPRESSION: No acute fracture. No osseous lesion. If symptoms and/or clinical suspicion for pathology persist, further assessment with repeat, or advanced imaging (e.g., CT, MRI, or bone scan) may be helpful for further assessment. Dictated by: Oskar Gallo M.D. on 04/27/2022 at 10:59 Transcribed by: KINGA on 04/27/2022 at 11:00 Approved by: Oskar Gallo M.D. on 04/27/2022 at 11:26
== END ==
PROVIDERS: PCP Family Medicine; Referring Provider Physician Assistant; Visit Provider Physician Assistant
DX: M95.2 Other acquired deformity of head (principal); R51.9 Headache, unspecified
CPT/HCPCS: 70250

== ENCOUNTER → 2022-05-25 11:59 | Outpatient (CLI) | payer MEDICARE, OTHER, MEDICAID, SELFPAY ==
[2022-05-25 12:51] LABS: Appearance Urine UA CLEAR; Bilirubin Urine UA NEGATIVE (NEGATIVE); Color Urine UA YELLOW; Glucose Urine UA NEGATIVE (Negative); Ketones Urine UA NEGATIVE (NEGATIVE); Leukocyte Esterase Urine UA NEGATIVE (NEGATIVE); Nitrite Urine UA NEGATIVE (Negative); Occult Blood Urine UA NEGATIVE (Negative); Protein Urine UA 1+ (Negative); Urobilinogen Urine UA 0.2 E.U./dL (0.2)
[2022-05-25 13:01] LABS: pH Urine UA 5.5 (4.5-8.0)
[2022-05-25 13:02] LABS: Amorphous Sediment Urine 1+; Bacteria Urine None Seen; Culture Indicated Urine Cult Not Indicated; RBC Urine None Seen (0-5/HPF); Squamous Epithelial Cell Urine 0-1 /HPF (0-5/HPF); WBC Urine None Seen (0-5/HPF)
== END ==
PROVIDERS: PCP Family Medicine; Visit Provider Physician Assistant
DX: R10.9 Unspecified abdominal pain (principal); R82.90 Unspecified abnormal findings in urine
CPT/HCPCS: 81001

== ENCOUNTER → 2023-01-02 12:50 | Outpatient (CLI) | payer MEDICARE, OTHER, SELFPAY ==
[2023-01-02 13:20] LABS: Add Manual Diff / Slide Review NO; Basophils Absolute Auto 100 /uL (0-100); Basophils Percent Auto 1.2 % (0-2); Eosinophils Absolute Auto 200 /uL (0-450); Eosinophils Percent Auto 1.5 % (2-4); Hematocrit 37.8 % (36-46); Hemoglobin 12.2 g/dL (12.0-16.0); Lymphocytes Absolute Auto 2200 /uL (1100-4500); Mean Corpuscular HGB Conc 32.2 % (30-36); Mean Corpuscular Hemoglobin 24.6 PG (26-34); Mean Corpuscular Volume 76.4 fL (80-100); Monocytes Absolute Auto 700 /uL (0-900); Monocytes Percent Auto 6.7 % (3-14); Neutrophils Absolute Auto 7000 /uL (1500-7000); Neutrophils Percent Auto 68.6 % (50-75); Platelet Count 227 X10^3/uL (150-400); Red Blood Cell Count 4.95 X10^6/uL (4.0-5.2); Red Cell Distribution Width 15.1 % (11.6-14.8); White Blood Cell Count 10.2 X10^3/uL (4.5-11.0)
[2023-01-02 13:56] LABS: Alanine Aminotransferase 21 IU/L (<35); Albumin 3.8 g/dL (3.5-5.0); Albumin Globulin Ratio 1.1 (1.0-2.8); Alkaline Phosphatase 133 U/L (38-126); Aspartate Aminotransferase 21 IU/L (14-36); BUN Creatinine Ratio 15.7 (6-22); Bilirubin Total 0.4 mg/dL (0.2-1.3); Blood Urea Nitrogen 13 mg/dL (7-17); Calcium 9.2 mg/dL (8.4-10.2); Carbon Dioxide 32 mmol/L (22-32); Chloride 102 mmol/L (98-107); Cholesterol 232 mg/dL (140-199); Estimated Glomerular Filt Rate > 60 mL/min (>60); Globulin 3.6 g/dL (1.7-4.1); Glucose 191 mg/dL (80-110); HDL Cholesterol 40 mg/dL (40-60); HEMOLYSIS < 15 (0-50); LDL Cholesterol Calculated 159 mg/dL (<100); Potassium 4.7 mmol/L (3.4-5.1); Sodium 140 mmol/L (137-145); Total Protein 7.4 g/dL (6.3-8.2); Triglycerides 167 mg/dL (35-150)
[2023-01-02 14:21] LABS: Thyroid Stimulating Hormone 2.16 uIU/mL (0.47-4.68)
[2023-01-02 16:11] LABS: Creatinine Urine Random 232.5 mg/dL
[2023-01-02 16:17] LABS: Microalbumi Creatinin Ratio Ur 27.5 ug/mg CR (<30); Microalbumin Urine Random 6.4 mg/dL (0-1.6)
[2023-01-03 06:07] LABS: x Labcorp Estim. Avg Glu (eAG) 237 mg/dL (.); x Labcorp Hemoglobin A1c 9.9 % (4.8-5.6)
== END ==
PROVIDERS: PCP Family Medicine; Referring Provider Family Medicine; Visit Provider Family Medicine
DX: D64.9 Anemia, unspecified (principal); E11.40 Type 2 diabetes mellitus with diabetic neuropathy, unspecified; E11.65 Type 2 diabetes mellitus with hyperglycemia; I10 Essential (primary) hypertension; E66.01 Morbid (severe) obesity due to excess calories
CPT/HCPCS: 36415; 80053; 80061; 82043; 82570; 83036; 84443; 85025

== ENCOUNTER → 2023-01-31 13:11 | Outpatient (CLI) | payer MEDICARE, OTHER, MEDICAID, SELFPAY ==
--- NOTE | 2023-01-31 13:16 | DI.MG.S_ITS ---
BILATERAL DIGITAL DIAGNOSTIC MAMMOGRAM 3D/2D: 01/31/2023 CLINICAL: Left breast pain. Comparison is made to exams dated: 01/18/2022 mammogram, 08/09/2020 ultrasound, 07/28/2020 ultrasound, 07/28/2020 mammogram, and 07/07/2020 mammogram - [facility]. There are scattered areas of fibroglandular density in both breasts (category b / 25%-50% glandular tissue). No significant masses, calcifications, or other findings are seen in either breast. IMPRESSION: NEGATIVE There is no abnormality seen in the left breast to correspond with the diffuse pain, however, clinical correlation and clinical followup are recommended. There is no mammographic evidence of malignancy. Return to annual mammogram screening schedule is recommended. Based on the Tyrer Cuzick model (a risk assessment model) the patient's lifetime risk is 5.2% and her 10 year risk is 2.1%. According to the ACR, ACS, and NCCN guidelines, an annual breast MRI exam along with mammogram is recommended if the patient's lifetime risk is 20% or greater. This exam was interpreted at Station ID: [id number]. NOTE: For mammograms, a report in lay terms will be sent to the patient. Approximately 15% of breast malignancies will not be visualized mammographically. In the management of a palpable breast mass, a negative mammogram must not discourage biopsy of a clinically suspicious lesion. Electronically Signed By: Niels Mendoza M.D. lc/:01/31/2023 14:02:17 copy to: Wilian Booth letter sent: Clinical Evaluation ACR BI-RADS Category 1: Negative [id number]
== END ==
PROVIDERS: PCP Family Medicine; Referring Provider Physician Assistant; Visit Provider Physician Assistant
DX: N64.4 Mastodynia (principal)
CPT/HCPCS: 77066; G0279

== ENCOUNTER 2023-03-16 14:02 | Emergency (ER) | payer MEDICARE, OTHER, SELFPAY ==
[2023-03-16] VITALS (9 sets, daily range): BP systolic 95–126; BP diastolic 54–70; PULSE 67–91; RESP 20; TEMP 36.1; O2SAT 97–100; BMI 35.1
[2023-03-16 16:00] LABS: Add Manual Diff / Slide Review NO; Basophils Absolute Auto 100 /uL (0-100); Basophils Percent Auto 1.1 % (0-2); Eosinophils Absolute Auto 200 /uL (0-450); Eosinophils Percent Auto 2.2 % (2-4); Hematocrit 37.4 % (36-46); Lymphocytes Absolute Auto 2400 /uL (1100-4500); Lymphocytes Percent Auto 25.1 % (25-40); Mean Corpuscular Hemoglobin 24.5 PG (26-34); Mean Corpuscular Volume 76.5 fL (80-100); Monocytes Absolute Auto 600 /uL (0-900); Monocytes Percent Auto 6.7 % (3-14); Neutrophils Absolute Auto 6200 /uL (1500-7000); Neutrophils Percent Auto 64.9 % (50-75); Platelet Count 203 X10^3/uL (150-400); Red Blood Cell Count 4.89 X10^6/uL (4.0-5.2); Red Cell Distribution Width 14.5 % (11.6-14.8); White Blood Cell Count 9.5 X10^3/uL (4.5-11.0)
[2023-03-16 16:03] LABS: Alanine Aminotransferase 20 IU/L (<35); Albumin 4.1 g/dL (3.5-5.0); Alkaline Phosphatase 129 U/L (38-126); Aspartate Aminotransferase 27 IU/L (14-36); BUN Creatinine Ratio 23.3 (6-22); Bilirubin Total 0.4 mg/dL (0.2-1.3); Blood Urea Nitrogen 20 mg/dL (7-17); Calcium 9.4 mg/dL (8.4-10.2); Carbon Dioxide 30 mmol/L (22-32); Chloride 104 mmol/L (98-107); Estimated Glomerular Filt Rate > 60 mL/min (>60); Glucose 130 mg/dL (80-110); HEMOLYSIS 24 (0-50); Lipase 224 U/L (23-300); Sodium 140 mmol/L (137-145); Total Protein 8.1 g/dL (6.3-8.2)
[2023-03-16] MEDS: ONDANSETRON 4 MG/2 ML INJ IV (16:17)
--- NOTE | 2023-03-16 18:26 | ED.GENADULT ---
HPI - General Adult General Chief complaint: Abdominal Pain Stated complaint: ABD Pain/itching Time Seen by Provider: 03/16/23 18:01 Source: patient Mode of arrival: Ambulatory Limitations: no limitations History of Present Illness HPI narrative: Patient is a 62-year-old female who is here for evaluation of approximately 3 weeks right upper quadrant abdominal pain. She does see a GI doctor. This is because she is had quite a long time of diarrhea. She states that the GI doctor for like her to have a colonoscopy. She still has her gallbladder. She does not report that the right upper quadrant pain is related to the diarrhea were urinating were eating. She is having some nausea but no vomiting. No skin rashes. She also states that she is having itching not only in that area but in other areas of the body. Has not tried anything for the symptoms prior to arrival. She is an insulin-dependent diabetic. Has had a liver biopsy in the past because there were cyst on her liver but she told everything was okay. Related Data Home Medications Medication Instructions Recorded Confirmed Respironics Dreamstation CPAP #1 ea 01/21/19 02/27/23 albuterol 90 mcg/actuation aerosol mcg inhalation 09/21/21 02/27/23 inhaler cyclosporine 0.05 % eye drops drp EYE-BOTH 09/21/21 02/27/23 (Restasis MultiDose) fluticasone propionate 44 2 puff inhalation QID 09/21/21 02/27/23 mcg/actuation HFA aerosol inhaler (Flovent HFA) Previous Rx's Medication Instructions Recorded Syringes: Ultra Fine Insulin #1 ea 05/20/18 Syringe w/Needle tramadol 50 mg tablet 50 mg PO BID PRN pain #10 tabs 11/11/21 halobetasol propionate 0.05 % 1 applic topical .COMPLEX #15 grams 02/14/22 topical ointment insulin syringe-needle U-100 1 mL #100 ea 04/07/22 31 gauge x 15/64 (BD Veo Insulin Syringe Ultra-Fine) Pen needles #100 ea 04/11/22 meloxicam 7.5 mg tablet 15 mg PO DAILY #60 tabs 04/26/22 lisinopril 20 1 tab PO DAILY #90 tabs 05/25/22 mg-hydrochlorothiazide 25 mg tablet omeprazole 20 mg capsule,delayed See Rx Instructions .Route 07/28/22 release .COMPLEX #30 caps rosuvastatin 10 mg tablet 10 mg PO BEDTIME #45 tabs 01/16/23 insulin glargine 100 20 unit (0.2 mL) SUBCUT QAM #15 mL 01/25/23 unit-lixisenatide 33 mcg/mL subcutaneous pen (Soliqua ) empagliflozin 10 mg tablet 10 mg PO QAM #30 tabs 02/05/23 (Jardiance) Blood Glucose Monitor #1 ea 02/08/23 Test strips #180 ea 02/08/23 lancets #180 ea 02/09/23 fluoxetine 20 mg capsule 40 mg PO DAILY #60 caps 03/05/23 Allergies Allergy/AdvReac Type Severity Reaction Status Date / Time hazelnut [HAZELNUT] Allergy Intermediate HIVES Verified 01/16/23 13:43 diclofenac [From Voltaren] Allergy Mild hives and Verified 03/16/23 14:30 asthma fluconazole [FLUCONAZOLE] Allergy Mild skin Verified 03/16/23 14:30 reaction hydrocodone [HYDROCODONE] Allergy Mild nausea Verified 03/16/23 14:30 latex [LATEX] Allergy Mild unknown Verified 03/16/23 14:30 morphine [MORPHINE] Allergy Mild too Verified 03/16/23 14:30 tired, knocks me out nitroglycerin [NITROGLYCERIN] Allergy Mild unknown Verified 03/16/23 14:30 Penicillins [PENICILLINS] Allergy Mild hives Verified 03/16/23 14:30 prednisone [PREDNISONE] Allergy Mild swelling Verified 03/16/23 14:30 sulfamethoxazole Allergy Mild hives Verified 03/16/23 14:30 [From BACTRIM] trimethoprim [From BACTRIM] Allergy Mild internal Verified 03/16/23 18:39 hives iodine [IODINE] Allergy Unknown Verified 03/16/23 18:39 wheat AdvReac Intermediate Gluten Verified 03/16/23 18:39 sensitive cashews Allergy Mild throat Uncoded 01/16/23 13:43 tightened, severe reflux Review of Systems Review of Systems ROS Unobtainable: All systems reviewed & are unremarkable except as noted in HPI and below Patient History Medical History Abnormal chest xray (~2002) Abscess of right groin Acne (~2004) Anemia Ankle pain (~2012) Arthritis Asthma (~1997) Autoimmune disorder Behaviorally induced insufficient sleep syndrome Carpal tunnel syndrome (~1996) Chest pain Controlled type 2 diabetes mellitus (08/02/15) Diabetes mellitus DKA, type 1 Eczema (~1997) Edema Elevated troponin Encounter for routine gynecological examination with Papanicolaou smear of cervix Encounter for well woman exam with abnormal findings Feeling of incomplete bladder emptying Fibromyalgia (10/07/15) Foot pain (~2012) Fractures (~1987) Gastric ulcer Headache HTN (hypertension) Hypertension Left arm pain Left knee sprain Leg injury (~2014) Lipoma Lower back pain Lymphadenopathy (03/05/17) Malignant neoplasm of uterus (08/02/15) Mastodynia Morbid obesity with body mass index of 40.0-49.9 Multiple somatic complaints Obstructive sleep apnea of adult Rheumatoid aortitis Right hip pain Sarcoidosis (~2004) Shoulder pain (~2001) Sore throat (10/07/15) Upper respiratory infection Urinary hesitancy Uterine cancer Vision disorder Surgical History Anesthesia History of carpal tunnel repair Status post biopsy Status post biopsy Status post colonoscopy Status post hemorrhoidectomy Status post hysterectomy Family History Grandfather Heart disease Hypertension High cholesterol Grandmother Heart disease Hypertension Mother Age: 78 Diabetes mellitus Renal failure UTI (urinary tract infection) Grandfather Dementia Grandmother Dementia Father No problems noted. Social History marital status: number of children: 1 occupational status: unemployed Smoking Status: Never smoker alcohol intake: current substance use type: does not use caffeine: Yes Smoking Status: Never smoker alcohol intake frequency: holidays/special occasions only Substance Use Type: does not use Exam Initial Vital Signs Initial Vital Signs: Vital Signs Temperature 97 F L 03/16/23 14:23 Pulse Rate 91 H 03/16/23 14:23 Respiratory Rate 20 03/16/23 14:23 Blood Pressure 126/69 03/16/23 14:23 Pulse Oximetry 100 03/16/23 14:23 Oxygen Delivery Method Room Air 03/16/23 14:23 Const General: cooperative, comfortable and No ill appearing HENMT Head: normal to inspection and normocephalic Resp Effort & Inspection: normal respiratory effort Auscultation: clear to auscultation bilaterally Cardio Rate: regular rate Rhythm: regular rhythm GI Inspection: normal to inspection and non-distended Palpation: soft, No firm, No guarding and tender Back/Spine/Pelvis Back: No CVA tenderness Skin General: no rashes or lesions noted Neuro General: patient alert, patient awake, patient oriented x3 and moves all extremities Extrem General: capillary refill normal Course Orders Ordered: ED Orders 03/16/23 18:27 CT kidney ureter bladder (KUB) Stat Discontinued Medications Ondansetron HCl (Ondansetron 4 Mg Odt) 4 mg PO NOW PRN PRN Reason: Nausea And Vomiting Ondansetron HCl (Ondansetron 4 Mg/2 Ml Inj) 4 mg IV NOW PRN PRN Reason: Nausea And Vomiting Last Admin: 03/16/23 16:17 Dose: 4 mg Documented By: IMANI Vital Signs Vital signs: Vital Signs - 8 hr 03/16/23 17:41 03/16/23 17:41 03/16/23 18:00 Pulse Rate 83 83 Respiratory Rate 20 Blood Pressure 115/66 Pulse Oximetry 100 97 Oxygen Delivery Method Room Air 03/16/23 18:30 03/16/23 18:32 03/16/23 19:29 Pulse Rate 79 77 Respiratory Rate Blood Pressure 112/70 Pulse Oximetry 99 99 Oxygen Delivery Method 03/16/23 19:47 03/16/23 19:48 03/16/23 19:48 Pulse Rate 67 Respiratory Rate Blood Pressure 95/54 L Pulse Oximetry 100 99 Oxygen Delivery Method 03/16/23 20:00 Pulse Rate 73 Respiratory Rate Blood Pressure Pulse Oximetry 98 Oxygen Delivery Method Medical Decision Making Medical Records Medical records reviewed: Yes I reviewed the patient's medical records. Lab Data Lab results reviewed: Yes I reviewed the patient's lab results. 03/16/23 15:25 03/16/23 15:25 Labs: Lab Results 03/16/23 03/16/23 Range/Units 15:25 15:25 WBC 9.5 (4.5-11.0) X10^3/uL RBC 4.89 (4.0-5.2) X10^6/uL Hgb 12.0 (12.0-16.0) g/dL Hct 37.4 (36-46) % MCV 76.5 L (80-100) fL MCH 24.5 L (26-34) PG MCHC 32.0 (30-36) % RDW 14.5 (11.6-14.8) % Plt Count 203 (150-400) X10^3/uL Neut % (Auto) 64.9 (50-75) % Lymph % (Auto) 25.1 (25-40) % [place] % (Auto) 6.7 (3-14) % Eos % (Auto) 2.2 (2-4) % Baso % (Auto) 1.1 (0-2) % Neut # (Auto) 6200 (0348-6665) /uL Lymph # (Auto) 2400 (2408-0567) /uL [place] # (Auto) 600 (0-900) /uL Eos # (Auto) 200 (0-450) /uL Baso # (Auto) 100 (0-100) /uL Sodium 140 (137-145) mmol/L Potassium 4.0 (3.4-5.1) mmol/L Chloride 104 (98-107) mmol/L Carbon Dioxide 30 (22-32) mmol/L BUN 20 H (7-17) mg/dL Creatinine 0.86 (0.52-1.04) mg/dL Estimated GFR > 60 (>60) mL/min BUN/Creatinine Ratio 23.3 H (6-22) Glucose 130 H (80-110) mg/dL Calcium 9.4 (8.4-10.2) mg/dL Total Bilirubin 0.4 (0.2-1.3) mg/dL AST 27 (14-36) IU/L ALT 20 (<35) IU/L Alkaline Phosphatase 129 H (38-126) U/L Total Protein 8.1 (6.3-8.2) g/dL Albumin 4.1 (3.5-5.0) g/dL Globulin 4.0 (1.7-4.1) g/dL Albumin/Globulin Ratio 1.0 (1.0-2.8) Lipase 224 (23-300) U/L Urine Dip Bedside Urine Glucose Negative Bedside Urine Bilirubin - Negative Bedside Urine Ketone - Negative Urine Specific [place] 1.020 Bedside Urine Occult Blood - Negative Bedside Urine pH 6.0 Bedside Urine Protein - Negative Bedside Urine Urobilinogen - Negative Bedside Urine Nitrite - Negative Bedside Urine Leukocytes - Negative Esterase Point of care testing: Urine Dip Bedside Urine Glucose Negative Bedside Urine Bilirubin - Negative Bedside Urine Ketone - Negative Urine Specific Kimball 1.020 Bedside Urine Occult Blood - Negative Bedside Urine pH 6.0 Bedside Urine Protein - Negative Bedside Urine Urobilinogen - Negative Bedside Urine Nitrite - Negative Bedside Urine Leukocytes - Negative Esterase Imaging Data CT scan - abdomen/pelvis: Radiologist's Impression: PROCEDURE:? CT KIDNEY URETER BLADDER (KUB) ? INDICATIONS:? abd pain ? TECHNIQUE:? Axial sections were acquired from the lung bases to the pubic symphysis.? Coronal and sagittal reformats were performed.? For radiation dose reduction, the following was used: ?automated exposure control, adjustment of mA and/or kV according to patient size.? ? COMPARISON:? [facility], CT, CT ABDOMEN PELVIS WITHOUT CONTRAST, 05/26/2022, 21:51. ? FINDINGS:? Image quality:? Excellent.? ? Lung bases:? Unremarkable.? ? Heart:? No significant findings. ? URINARY: Right Kidney: ? No stones or hydronephrosis.? Right Ureter:? No hydroureter.? ? Left Kidney: ? No stones or hydronephrosis. Left Ureter:? No hydroureter.? ? Bladder:? Normal wall thickness. No stones. ? ? ? ABDOMEN: Liver:? Hepatic contour is nodular, consistent with cirrhosis. Gallbladder:? Unremarkable.? ? Biliary ducts:? Unremarkable.? ? Pancreas:? Unremarkable.? ? Spleen:? Unremarkable.? ? Adrenal Glands:? Unremarkable.? ? ? Stomach and Bowel:? Stomach, small bowel loops, and colon are unremarkable.? Appendix is not seen.? Normal appendix. Peritoneum:? No abnormal intraperitoneal fluid.? No free air.? ? Ventral Wall: ? No hernia.? Abdominal Nodes:? No enlarged retroperitoneal or mesenteric lymph nodes.? Vessels:? Aorta and inferior vena cava are normal in size.? ? PELVIS: Pelvic Organs:? Unremarkable.? ? Pelvic Nodes: Unremarkable. Miscellaneous: No inguinal hernias are seen. ? ? ? Bones:? Unremarkable. ? IMPRESSION:? ? 1.? No evidence of urinary tract calcification, nor obstruction. 2. Normal appendix.? MDM Narrative Medical decision making narrative: Patient does have right upper quadrant tenderness but also generalized abdominal tenderness on her exam. This has been going on for the past 3 weeks. Her labs are unremarkable. LFTs normal. Lipase is normal. Bilirubins normal. Urine is normal. Low suspicion for pyelo. CT scan shows no acute pathology. There are no skin rashes over the area. Unsure the exact etiology of the patient's symptoms but I do feel that follow-up with her GI doctor for colonoscopy is appropriate. No indication for admission to the hospital or surgical consultation today. She was given return precautions. She expressed understanding and agreement. Discharge Plan Departure Patient Disposition: Home Clinical Impression: Abdominal pain Instructions: DI for Abdominal Pain-Adult Activity Restrictions/Additional Instructions: I do recommend that you continue to take all of your medications as directed and keep all of your scheduled appointments specifically with your GI doctor. Also contact your primary doctor for a follow-up. Return to the emergency department for new symptoms. Prescriptions: No Action meloxicam 7.5 mg tablet 15 mg PO DAILY Qty: 60 0RF rosuvastatin 10 mg tablet 10 mg PO BEDTIME Qty: 45 1RF Restasis MultiDose 0.05 % drops EYE-BOTH Flovent HFA 44 mcg/actuation HFA aerosol inhaler 2 puff inhalation QID Rx Instructions: administer with spacer - prescribed by ENT albuterol 90 mcg/actuation aerosol inhalation tramadol 50 mg tablet 50 mg PO BID PRN (Reason: pain) Qty: 10 0RF lisinopril-hydrochlorothiazide 20-25 mg tablet 1 tab PO DAILY Qty: 90 3RF (DME) Syringes: Ultra Fine Insulin Syringe w/Needle 0 .Route .MEDSUPPLY Qty: 1 5RF Dose Instruction: As directed Rx Instructions: As directed (DME) insulin syringe-needle U-100 [BD Veo Insulin Syringe UF] 1 mL 31 gauge x 15/64 syringe See Rx Instructions .ROUTE .COMPLEX Qty: 100 3RF Hold Instructions: patient stopped approx 04/26 Dose Instruction: USE 1 NEW SYRINGE FOR INJECTIONS TWICE DAILY. (E11.42) Rx Instructions: USE 1 NEW SYRINGE FOR INJECTIONS TWICE DAILY. (E11.42) (DME) Pen needles See Rx Instructions .Route .MEDSUPPLY Qty: 100 3RF Rx Instructions: As directed once daily for insulin injections omeprazole 20 mg capsule,delayed release(DR/EC) See Rx Instructions .ROUTE .COMPLEX Qty: 30 0RF Dose Instruction: Take 1 capsule by mouth once daily Rx Instructions: Take 1 capsule by mouth once daily Soliqua 100/33 100 unit-33 mcg/mL insulin pen 20 unit SUBCUT QAM Qty: 15 3RF Rx Instructions: Inject 20 units once daily; add 5 units every 3 days until blood sugars are 120 or less Jardiance 10 mg tablet 10 mg PO QAM Qty: 30 3RF Hold Instructions: hasn't started it yet Rx Instructions: Take 1 tab by mouth each morning with food for NIDDM (DME) Blood Glucose Monitor See Rx Instructions .Route .MEDSUPPLY Qty: 1 0RF Rx Instructions: As directed twice daily for blood glucose monitoring. Please provide as covered by Insurance (DME) Test strips See Rx Instructions .Route .MEDSUPPLY Qty: 180 3RF Rx Instructions: As directed twice daily for blood glucose testing (DME) lancets See Rx Instructions .Route .MEDSUPPLY Qty: 180 3RF Rx Instructions: Use as directed twice daily for blood glucose testing fluoxetine 20 mg capsule 40 mg PO DAILY Qty: 60 0RF halobetasol propionate 0.05 % ointment 1 applic topical .COMPLEX Qty: 15 3RF Rx Instructions: 1 applic topically BID x 2 weeks, then continue daily; apply thin amount to affected area (DME) Respironics Dreamstation CPAP Qty: 1 Dose Instruction: As directed Patient Comments: Pressure: 6-12 cmH2O DME: [facility] Rx Instructions: As directed Referrals: Wilian Booth MD [Primary Care Provider] - Stand Alone Forms: Patient Portal/API
--- NOTE | 2023-03-16 18:27 | DI.CT.S_ITS ---
PROCEDURE: CT KIDNEY URETER BLADDER (KUB) INDICATIONS: abd pain TECHNIQUE: Axial sections were acquired from the lung bases to the pubic symphysis. Coronal and sagittal reformats were performed. For radiation dose reduction, the following was used: automated exposure control, adjustment of mA and/or kV according to patient size. COMPARISON: [facility], CT, CT ABDOMEN PELVIS WITHOUT CONTRAST, 05/26/2022, 21:51. FINDINGS: Image quality: Excellent. Lung bases: Unremarkable. Heart: No significant findings. URINARY: Right Kidney: No stones or hydronephrosis. Right Ureter: No hydroureter. Left Kidney: No stones or hydronephrosis. Left Ureter: No hydroureter. Bladder: Normal wall thickness. No stones. ABDOMEN: Liver: Hepatic contour is nodular, consistent with cirrhosis. Gallbladder: Unremarkable. Biliary ducts: Unremarkable. Pancreas: Unremarkable. Spleen: Unremarkable. Adrenal Glands: Unremarkable. Stomach and Bowel: Stomach, small bowel loops, and colon are unremarkable. Appendix is not seen. Normal appendix. Peritoneum: No abnormal intraperitoneal fluid. No free air. Ventral Wall: No hernia. Abdominal Nodes: No enlarged retroperitoneal or mesenteric lymph nodes. Vessels: Aorta and inferior vena cava are normal in size. PELVIS: Pelvic Organs: Unremarkable. Pelvic Nodes: Unremarkable. Miscellaneous: No inguinal hernias are seen. Bones: Unremarkable. IMPRESSION: 1. No evidence of urinary tract calcification, nor obstruction. 2. Normal appendix. Dictated by: Oskar Gallo M.D. on 03/16/2023 at 19:39 Approved by: Oskar Gallo M.D. on 03/16/2023 at 19:40
[2023-03-19 01:04] LABS: x Labcorp Estim. Avg Glu (eAG) 249 mg/dL (.); x Labcorp Hemoglobin A1c 10.3 % (4.8-5.6)
== END 2023-03-16 20:37 | disposition home or self-care (01) ==
PROVIDERS: Emergency Medicine; Emergency Provider Emergency Medicine; PCP Family Medicine
DX: R10.84 Generalized abdominal pain (principal)
CPT/HCPCS: 36415; 74176; 80053; 81003; 83036; 83690; 85025; 96374; 99284; J2405

== ENCOUNTER → 2023-06-08 11:29 | Outpatient (CLI) | payer MEDICARE, OTHER, SELFPAY ==
[2023-06-09 15:10] LABS: Candida species Positive (Negative); Gardnerella vaginalis Negative (Negative); Trichomoas vaginalis Negative (Negative)
== END ==
PROVIDERS: Visit Provider Student in an Organized Health Care Education/Training Program
DX: N89.8 Other specified noninflammatory disorders of vagina (principal)
CPT/HCPCS: 87480; 87510; 87660

== ENCOUNTER → 2023-06-23 12:20 | Outpatient (CLI) | payer MEDICARE, OTHER, SELFPAY ==
[2023-06-23 13:11] LABS: Hematocrit 37.4 % (36-46); Hemoglobin 11.9 g/dL (12.0-16.0); Mean Corpuscular HGB Conc 31.8 % (30-36); Mean Corpuscular Hemoglobin 24.2 PG (26-34); Mean Corpuscular Volume 76.1 fL (80-100); Platelet Count 199 X10^3/uL (150-400); Red Blood Cell Count 4.91 X10^6/uL (4.0-5.2); Red Cell Distribution Width 14.5 % (11.6-14.8); White Blood Cell Count 10.2 X10^3/uL (4.5-11.0)
[2023-06-23 13:41] LABS: Alanine Aminotransferase 18 IU/L (<35); Albumin 3.8 g/dL (3.5-5.0); Alkaline Phosphatase 113 U/L (38-126); Aspartate Aminotransferase 22 IU/L (14-36); BUN Creatinine Ratio 13.1 (6-22); Bilirubin Total 0.4 mg/dL (0.2-1.3); Blood Urea Nitrogen 11 mg/dL (7-17); Calcium 9.7 mg/dL (8.4-10.2); Carbon Dioxide 28 mmol/L (22-32); Chloride 103 mmol/L (98-107); Estimated Glomerular Filt Rate > 60 mL/min (>60); Globulin 3.7 g/dL (1.7-4.1); Glucose 204 mg/dL (80-110); HEMOLYSIS < 15 (0-50); Potassium 4.4 mmol/L (3.4-5.1); Sodium 139 mmol/L (137-145); Total Protein 7.5 g/dL (6.3-8.2)
[2023-06-23 14:12] LABS: TSH w/ Reflex to FT4 2.03 uIU/mL (0.47-4.68)
== END ==
PROVIDERS: Referring Provider Internal Medicine; Visit Provider Internal Medicine
DX: I10 Essential (primary) hypertension (principal); G47.33 Obstructive sleep apnea (adult) (pediatric)
CPT/HCPCS: 36415; 80053; 84443; 85027

== ENCOUNTER 2023-08-03 14:30 | Outpatient (RCR) | payer MEDICARE, OTHER, SELFPAY ==
--- NOTE | 2023-07-23 17:00 | PT.OIE ---
Current Diagnoses Polyneuropathy, unspecified (07/23/23) Unsteadiness on feet (07/23/23) Other abnormalities of gait and mobility (07/23/23) Past Medical History (Last Reviewed 06/08/23 @ 11:39 by Esperanza Lee DO) Abnormal chest xray (~2002) Abscess of right groin Acne (~2004) Anemia Ankle pain (~2012) Arthritis Asthma (~1997) Autoimmune disorder Behaviorally induced insufficient sleep syndrome Carpal tunnel syndrome (~1996) Chest pain Controlled type 2 diabetes mellitus (08/02/15) Diabetes mellitus DKA, type 1 Eczema (~1997) Edema Elevated troponin Encounter for routine gynecological examination with Papanicolaou smear of cervix Encounter for well woman exam with abnormal findings Feeling of incomplete bladder emptying Fibromyalgia (10/07/15) Foot pain (~2012) Fractures (~1987) Gastric ulcer Headache HTN (hypertension) Hypertension Left arm pain Left knee sprain Leg injury (~2014) Lipoma Lower back pain Lymphadenopathy (03/05/17) Malignant neoplasm of uterus (08/02/15) Mastodynia Morbid obesity with body mass index of 40.0-49.9 Multiple somatic complaints Obstructive sleep apnea of adult Rheumatoid aortitis Right hip pain Sarcoidosis (~2004) Shoulder pain (~2001) Sore throat (10/07/15) Upper respiratory infection Urinary hesitancy Uterine cancer Vision disorder Past Surgical History (Last Reviewed 07/11/22 @ 17:44 by Gail Flores PA-C) Anesthesia History of carpal tunnel repair Status post biopsy Status post biopsy Status post colonoscopy Status post hemorrhoidectomy Status post hysterectomy Visit Care Team Role Provider Type Marisa Jaeger MD Primary Care Provider Non-Staff Referring Provider Specialty: Medical Address: [address] [place] [address], [id number] Fax: Email: Attending Provider Specialty: Address: Phone: Fax: Email: Physical Therapy Initial Evaluation PT-OP-A Visit Information Start: 07/23/23 17:35 Freq: Status: Active Protocol: Document 07/23/23 16:10 DCW (Rec: 07/23/23 17:49 DCW [id number]) Out-Patient Physical Therapy Visit Information Visit Information Visit Type Initial Evaluation Visit Note Late arrival Visit Start Time 16:10 Visit Stop Time 16:45 Total Visit Minutes 35 Visit Number 1 Number of BILINGUAL MEDICAL RECEPTIONIST Visits 0 Evaluation Information Evaluation Date 07/23/23 PT-OP-B Current Condition Start: 07/23/23 17:35 Freq: Status: Active Protocol: Document 07/23/23 16:10 DCW (Rec: 07/23/23 17:49 DCW [id number]) Current Condition History of Current Condition Current Complaints Neuropathy, stumbling, imbalance, decreased activity tolerance History of Current Condition Pt is a 62 year old female well known to this clinic referred to skilled physical therapy for worsening balance and gait difficulty secondary to bilateral polyneuropathy. Notes her right foot is worse than her left, but they have both gotten much worse recently. Feels she is stumbling a lot, and catching herself on bean to prevent falls. Also notes increased systemic symptoms, such as skin outbreaks, numbness in her abdomen, and a potential cyst on her right hand. PT-OP-C Subjective Start: 07/23/23 17:35 Freq: Status: Active Protocol: Document 07/23/23 16:10 DCW (Rec: 07/23/23 17:49 DCW [id number]) OP-PT Subjective Patient Comments Patient Comments I really wanted to join a gym and get myself in better shape after the last time I left here, but it didn't happen. PT-OP-D Balance Start: 07/23/23 17:35 Freq: Status: Active Protocol: Document 07/23/23 16:10 DCW (Rec: 07/23/23 17:49 DCW [id number]) Balance Tests Boyd Balance Test Boyd Balance Test Score 45/56 Boyd Balance Assessment Evaluation Sitting to Standing Ability Independent w/out Hands Unsupported Stance Safely- 2 minutes Sitting Unsupported, Feet on Floor Safely- 2 minutes Standing to Sitting Ability Safely, Minimal Hand Use Transfer Ability Safely, Minimal Hand Use Unsupported Stance- Eyes Closed Safely, 10 seconds Unsupported Stance- Eyes Open Independent, 1 minute Reaching Forward Standing Safely, 2 inches Pick- Up Object From Floor Independent/Safe Look Behind Shoulder - Standing Turns Sideways Only Turning 360 Degrees Supervision/Verbal Cues Unsupported Stance, Alternating Feet on (I)- 8 Steps in 20 secs Stair Unsupported Tandem Stance Holds Tandem- 30 seconds Unilateral Leg Stance Lifts Leg/Unable to Hold Total Score Boyd Total Score (out of 56 points) 45 Boyd Impairment Rating 1 to 19% Impaired (Score 45-55 ) PT-OP-E Functional Tests Start: 07/23/23 17:35 Freq: Status: Active Protocol: Document 07/23/23 16:10 DCW (Rec: 07/23/23 17:49 DCW [id number]) Functional Tests Dynamic Gait Index (DGI) Score 1724 DGI Impairment Rating 20 to <40% Impaired (Score 15- 19) PT-OP-T Assessment and Plan Start: 07/23/23 17:35 Freq: Status: Active Protocol: Document 07/23/23 16:10 DCW (Rec: 07/24/23 09:35 DCW [id number]) Physical Therapy Assessment Rehab Potential Rehabilitation Potential Good Evaluation Complexity Number of Personal Factors/Comorbidities 3 or More Number of Body Systems Impaired 3 Clinical Presentation at Evaluation Unstable Impairments Impairments Balance,Functional Activities, Functional Mobility,Pain, Sensation Goals Two Impairment Pt scores as an increased falls risk on DGI () [employer] Goal (LTG) Pt to increase DGI score by at least three points to 20/24 in order to demonstrate a decreased falls risk LTG Duration 09/23/23 One Impairment Pt experiences frequent stumbling and LOB Care Home Goal (LTG) Pt to report a 50% reduction in LOB over the course of one month LTG Duration 09/23/23 Assessment Summary Assessment Pt presents with signs and symptoms consistent with referring diagnosis of decreased balance secondary to neuropathy. Pt has systemic complaints, including LE and UE neuropathy, stumbling and loss of balance, abdominal neuropathy, and hip/leg tightness/stiffness. Had most difficulty today with ambulation with horizontal head turns, SLS, and turning in a quileute, which caused dizziness. Pt scores a 45/56 on the Boyd Balance Scale, and a 17/24 on the DGI, both of which indicate pt being in a falls risk category, but both fairly close to being WNL. Pt should benefit from skilled therapy focusing on balance, LE strength, and improving functional mobility. Physical Therapy Plan Frequency and Duration Frequency of Treatment 2x/Week Plan of Care Start Date 07/23/23 Plan of Care End Date 09/23/23 Therapeutic Interventions Therapeutic Interventions Balance Training,Gait Training ,Home Exercise Program,Manual Therapy,Neuromuscular Re- education,Patient/Caregiver Education,Self-Care/Home Management,Soft Tissue Mobilization,Therapeutic Activities,Therapeutic Exercises Next Visit Focus/Plan Next Note Type Treatment Note Next Visit Plan Balance training, vestibular challenges, ankle strengthening
--- NOTE | 2023-07-23 17:00 | PT.OPPOC ---
Physical, Occupational & Speech Therapy At [facility] Current Diagnoses Polyneuropathy, unspecified (07/23/23) Unsteadiness on feet (07/23/23) Other abnormalities of gait and mobility (07/23/23) Visit Care Team Role Provider Type Marisa Jaeger MD Primary Care Provider Non-Staff Referring Provider Specialty: Medical Address: [address] [place] [address], [facility] Fax: Email: Attending Provider Specialty: Address: Phone: Fax: Email: Plan Of Care PT-OP-T Assessment and Plan Start: 07/23/23 17:35 Freq: Status: Active Protocol: Document 07/23/23 16:10 DCW (Rec: 07/24/23 09:35 DCW [id number]) Physical Therapy Assessment Rehab Potential Rehabilitation Potential Good Evaluation Complexity Number of Personal Factors/Comorbidities 3 or More Number of Body Systems Impaired 3 Clinical Presentation at Evaluation Unstable Impairments Impairments Balance,Functional Activities, Functional Mobility,Pain, Sensation Goals Two Impairment Pt scores as an increased falls risk on DGI () Residential Goal (LTG) Pt to increase DGI score by at least three points to 20/24 in order to demonstrate a decreased falls risk LTG Duration 09/23/23 One Impairment Pt experiences frequent stumbling and LOB Track Leader Goal (LTG) Pt to report a 50% reduction in LOB over the course of one month LTG Duration 09/23/23 Assessment Summary Assessment Pt presents with signs and symptoms consistent with referring diagnosis of decreased balance secondary to neuropathy. Pt has systemic complaints, including LE and UE neuropathy, stumbling and loss of balance, abdominal neuropathy, and hip/leg tightness/stiffness. Had most difficulty today with ambulation with horizontal head turns, SLS, and turning in a [place]ucklesh[place], which caused dizziness. Pt scores a 45/56 on the Boyd Balance Scale, and a 17/24 on the DGI, both of which indicate pt being in a falls risk category, but both fairly close to being WNL. Pt should benefit from skilled therapy focusing on balance, LE strength, and improving functional mobility. Physical Therapy Plan Frequency and Duration Frequency of Treatment 2x/Week Plan of Care Start Date 07/23/23 Plan of Care End Date 09/23/23 Therapeutic Interventions Therapeutic Interventions Balance Training,Gait Training ,Home Exercise Program,Manual Therapy,Neuromuscular Re- education,Patient/Caregiver Education,Self-Care/Home Management,Soft Tissue Mobilization,Therapeutic Activities,Therapeutic Exercises Next Visit Focus/Plan Next Note Type Treatment Note Next Visit Plan Balance training, vestibular challenges, ankle strengthening Plan of Care Dates Plan of Care Start Date 07/23/23 Plan of Care End Date 09/23/23 Electronically Signed by: Dion Riggins, PT 07/24/23 0936 If you are in agreement with this Plan of Care, please return a signed and dated copy. I have reviewed this Plan of Care and certify that the skilled therapy services above are required to meet the patient?s needs. Physician Signature Date Printed Name and Credentials Clinical Instructor Signature Printed Name and Credentials
--- NOTE | 2023-07-26 16:44 | PT.OTN ---
Current Diagnoses Polyneuropathy, unspecified (07/26/23) Unsteadiness on feet (07/26/23) Other abnormalities of gait and mobility (07/26/23) Physical Therapy Treatment Note PT-OP-A Visit Information Start: 07/23/23 17:35 Freq: Status: Active Protocol: Document 07/26/23 16:00 DCW (Rec: 07/26/23 16:44 DCW [id number]) Out-Patient Physical Therapy Visit Information Visit Information Visit Type Treatment Note Visit Start Time 16:00 Visit Stop Time 16:45 Total Visit Minutes 45 Visit Number 2 Number of WINCH STRIPPER Visits 0 Evaluation Information Evaluation Date 07/23/23 PT-OP-B Current Condition Start: 07/23/23 17:35 Freq: Status: Active Protocol: Document 07/23/23 16:10 DCW (Rec: 07/23/23 17:49 DCW [id number]) Current Condition History of Current Condition Current Complaints Neuropathy, stumbling, imbalance, decreased activity tolerance History of Current Condition Pt is a 62 year old female well known to this clinic referred to skilled physical therapy for worsening balance and gait difficulty secondary to bilateral polyneuropathy. Notes her right foot is worse than her left, but they have both gotten much worse recently. Feels she is stumbling a lot, and catching herself on bean to prevent falls. Also notes increased systemic symptoms, such as skin outbreaks, numbness in her abdomen, and a potential cyst on her right hand. PT-OP-C Subjective Start: 07/23/23 17:35 Freq: Status: Active Protocol: Document 07/26/23 16:00 DCW (Rec: 07/26/23 16:44 DCW [id number]) OP-PT Subjective Patient Comments Patient Comments Pt doing well today, no new complaints. PT-OP-D Balance Start: 07/23/23 17:35 Freq: Status: Active Protocol: Document 07/23/23 16:10 DCW (Rec: 07/23/23 17:49 DCW [id number]) Balance Tests Boyd Balance Test Boyd Balance Test Score 45/56 Boyd Balance Assessment Evaluation Sitting to Standing Ability Independent w/out Hands Unsupported Stance Safely- 2 minutes Sitting Unsupported, Feet on Floor Safely- 2 minutes Standing to Sitting Ability Safely, Minimal Hand Use Transfer Ability Safely, Minimal Hand Use Unsupported Stance- Eyes Closed Safely, 10 seconds Unsupported Stance- Eyes Open Independent, 1 minute Reaching Forward Standing Safely, 2 inches Pick- Up Object From Floor Independent/Safe Look Behind Shoulder - Standing Turns Sideways Only Turning 360 Degrees Supervision/Verbal Cues Unsupported Stance, Alternating Feet on (I)- 8 Steps in 20 secs Stair Unsupported Tandem Stance Holds Tandem- 30 seconds Unilateral Leg Stance Lifts Leg/Unable to Hold Total Score Boyd Total Score (out of 56 points) 45 Boyd Impairment Rating 1 to 19% Impaired (Score 45-55 ) PT-OP-E Functional Tests Start: 07/23/23 17:35 Freq: Status: Active Protocol: Document 07/23/23 16:10 DCW (Rec: 07/23/23 17:49 DCW [id number]) Functional Tests Dynamic Gait Index (DGI) Score DGI Impairment Rating 20 to <40% Impaired (Score 15- 19) PT-OP-Q Treatments Start: 07/23/23 17:35 Freq: Status: Active Protocol: Document 07/26/23 16:00 DCW (Rec: 07/26/23 16:44 DCW [id number]) Gym Equipment Shuttle Balance Red Details WBOS, Staggered Neuro Re-Education Treatment Balance Activities Hurdles Details Hurdles/Foam Comments Fwd, Tandem, Side-stepping Dynamic Gait Comments Head turns, Retro ambulation in hallway Foam Stance Details Head turns Surface Blue Foam SLS Details SLS Equipment // bars Tandem Details Tandem Ambulation Equipment // bars PT-OP-T Assessment and Plan Start: 07/23/23 17:35 Freq: Status: Active Protocol: Document 07/26/23 16:00 DCW (Rec: 07/26/23 16:44 DCW [id number]) Physical Therapy Assessment Impairments Impairments Balance,Functional Activities, Functional Mobility,Pain, Sensation Goals Two Impairment Pt scores as an increased falls risk on DGI () Chcf Goal (LTG) Pt to increase DGI score by at least three points to in order to demonstrate a decreased falls risk LTG Duration 09/23/23 One Impairment Pt experiences frequent stumbling and LOB Chcf Goal (LTG) Pt to report a 50% reduction in LOB over the course of one month LTG Duration 09/23/23 Assessment Summary Assessment Pt showing some good improvement with balance, feels her numbness has lessened with use of massage gun on her legs and feet. Did well on Shuttle Balance for first time. Physical Therapy Plan Frequency and Duration Frequency of Treatment 2x/Week Plan of Care Start Date 07/23/23 Plan of Care End Date 09/23/23 Therapeutic Interventions Therapeutic Interventions Balance Training,Gait Training ,Home Exercise Program,Manual Therapy,Neuromuscular Re- education,Patient/Caregiver Education,Self-Care/Home Management,Soft Tissue Mobilization,Therapeutic Activities,Therapeutic Exercises Next Visit Focus/Plan Next Note Type Treatment Note Next Visit Plan Balance training, vestibular challenges, ankle strengthening
--- NOTE | 2023-07-31 16:01 | PT.OTN ---
Current Diagnoses Polyneuropathy, unspecified (07/31/23) Unsteadiness on feet (07/31/23) Other abnormalities of gait and mobility (07/31/23) Physical Therapy Treatment Note PT-OP-A Visit Information Start: 07/23/23 17:35 Freq: Status: Active Protocol: Document 07/31/23 15:15 DCW (Rec: 07/31/23 16:01 DCW [id number]) Out-Patient Physical Therapy Visit Information Visit Information Visit Type Treatment Note Visit Start Time 15:15 Visit Stop Time 16:00 Total Visit Minutes 45 Visit Number 3 Number of WAITER/WAITRESS THIRD CLASS Visits 0 Evaluation Information Evaluation Date 07/23/23 PT-OP-B Current Condition Start: 07/23/23 17:35 Freq: Status: Active Protocol: Document 07/23/23 16:10 DCW (Rec: 07/23/23 17:49 DCW [id number]) Current Condition History of Current Condition Current Complaints Neuropathy, stumbling, imbalance, decreased activity tolerance History of Current Condition Pt is a 62 year old female well known to this clinic referred to skilled physical therapy for worsening balance and gait difficulty secondary to bilateral polyneuropathy. Notes her right foot is worse than her left, but they have both gotten much worse recently. Feels she is stumbling a lot, and catching herself on bean to prevent falls. Also notes increased systemic symptoms, such as skin outbreaks, numbness in her abdomen, and a potential cyst on her right hand. PT-OP-C Subjective Start: 07/23/23 17:35 Freq: Status: Active Protocol: Document 07/31/23 15:15 DCW (Rec: 07/31/23 16:01 DCW [id number]) OP-PT Subjective Patient Comments Patient Comments [place] good following last treatment session PT-OP-D Balance Start: 07/23/23 17:35 Freq: Status: Active Protocol: Document 07/23/23 16:10 DCW (Rec: 07/23/23 17:49 DCW [id number]) Balance Tests Boyd Balance Test Boyd Balance Test Score 45/56 Boyd Balance Assessment Evaluation Sitting to Standing Ability Independent w/out Hands Unsupported Stance Safely- 2 minutes Sitting Unsupported, Feet on Floor Safely- 2 minutes Standing to Sitting Ability Safely, Minimal Hand Use Transfer Ability Safely, Minimal Hand Use Unsupported Stance- Eyes Closed Safely, 10 seconds Unsupported Stance- Eyes Open Independent, 1 minute Reaching Forward Standing Safely, 2 inches Pick- Up Object From Floor Independent/Safe Look Behind Shoulder - Standing Turns Sideways Only Turning 360 Degrees Supervision/Verbal Cues Unsupported Stance, Alternating Feet on (I)- 8 Steps in 20 secs Stair Unsupported Tandem Stance Holds Tandem- 30 seconds Unilateral Leg Stance Lifts Leg/Unable to Hold Total Score Boyd Total Score (out of 56 points) 45 Boyd Impairment Rating 1 to 19% Impaired (Score 45-55 ) PT-OP-E Functional Tests Start: 07/23/23 17:35 Freq: Status: Active Protocol: Document 07/23/23 16:10 DCW (Rec: 07/23/23 17:49 DCW [id number]) Functional Tests Dynamic Gait Index (DGI) Score DGI Impairment Rating 20 to <40% Impaired (Score 15- 19) PT-OP-Q Treatments Start: 07/23/23 17:35 Freq: Status: Active Protocol: Document 07/31/23 15:15 DCW (Rec: 07/31/23 16:01 DCW [id number]) Gym Equipment Shuttle Balance Red Details WBOS (EO/EC), Staggered, Lateral Therapeutic Exercises Standing Exercises Hip Extension Standing Exercise Name Hip Extension Side bilateral Resistance Green Comments x15 Other Exercises Resisted Ambulation Other Exercise Name Resisted side-stepping Resistance Green Neuro Re-Education Treatment Balance Activities Hurdles Details Hurdles/Foam Comments Fwd, Tandem Dynamic Gait Details Hallway ambulation Comments Head turns (90->120 bpm), Retro ambulation, tandem ambulation Foam Stance Details Head turns Surface Blue Foam PT-OP-T Assessment and Plan Start: 07/23/23 17:35 Freq: Status: Active Protocol: Document 07/31/23 15:15 DCW (Rec: 07/31/23 16:01 DCW [id number]) Physical Therapy Assessment Impairments Impairments Balance,Functional Activities, Functional Mobility,Pain, Sensation Goals Two Impairment Pt scores as an increased falls risk on DGI () Potato Peeler Goal (LTG) Pt to increase DGI score by at least three points to 24 in order to demonstrate a decreased falls risk LTG Duration 09/23/23 One Impairment Pt experiences frequent stumbling and LOB Correction Goal (LTG) Pt to report a 50% reduction in LOB over the course of one month LTG Duration 09/23/23 Assessment Summary Assessment Pt complaining of left leg pain today, limited some participation, specifically with retro ambulation and tandem stance, but otherwise did very well with balance challenges. Physical Therapy Plan Frequency and Duration Frequency of Treatment 2x/Week Plan of Care Start Date 07/23/23 Plan of Care End Date 09/23/23 Therapeutic Interventions Therapeutic Interventions Balance Training,Gait Training ,Home Exercise Program,Manual Therapy,Neuromuscular Re- education,Patient/Caregiver Education,Self-Care/Home Management,Soft Tissue Mobilization,Therapeutic Activities,Therapeutic Exercises Next Visit Focus/Plan Next Note Type Treatment Note Next Visit Plan Balance training, vestibular challenges, ankle strengthening
--- NOTE | 2023-08-03 15:16 | PT.OTN ---
Current Diagnoses Polyneuropathy, unspecified (08/03/23) Unsteadiness on feet (08/03/23) Other abnormalities of gait and mobility (08/03/23) Physical Therapy Treatment Note PT-OP-A Visit Information Start: 07/23/23 17:35 Freq: Status: Active Protocol: Document 08/03/23 14:30 DCW (Rec: 08/03/23 15:15 DCW [id number]) Out-Patient Physical Therapy Visit Information Visit Information Visit Type Treatment Note Visit Start Time 14:30 Visit Stop Time 15:10 Total Visit Minutes 40 Visit Number 4 Number of DEVICE SALES CONSULTANT Visits 0 Evaluation Information Evaluation Date 07/23/23 PT-OP-B Current Condition Start: 07/23/23 17:35 Freq: Status: Active Protocol: Document 07/23/23 16:10 DCW (Rec: 07/23/23 17:49 DCW [id number]) Current Condition History of Current Condition Current Complaints Neuropathy, stumbling, imbalance, decreased activity tolerance History of Current Condition Pt is a 62 year old female well known to this clinic referred to skilled physical therapy for worsening balance and gait difficulty secondary to bilateral polyneuropathy. Notes her right foot is worse than her left, but they have both gotten much worse recently. Feels she is stumbling a lot, and catching herself on bean to prevent falls. Also notes increased systemic symptoms, such as skin outbreaks, numbness in her abdomen, and a potential cyst on her right hand. PT-OP-C Subjective Start: 07/23/23 17:35 Freq: Status: Active Protocol: Document 08/03/23 14:30 DCW (Rec: 08/03/23 15:16 DCW [id number]) OP-PT Subjective Patient Comments Patient Comments Pt reports she is doing well today, got to go out last night with her family for her birthday. PT-OP-D Balance Start: 07/23/23 17:35 Freq: Status: Active Protocol: Document 07/23/23 16:10 DCW (Rec: 07/23/23 17:49 DCW [id number]) Balance Tests Boyd Balance Test Boyd Balance Test Score 45/56 Boyd Balance Assessment Evaluation Sitting to Standing Ability Independent w/out Hands Unsupported Stance Safely- 2 minutes Sitting Unsupported, Feet on Floor Safely- 2 minutes Standing to Sitting Ability Safely, Minimal Hand Use Transfer Ability Safely, Minimal Hand Use Unsupported Stance- Eyes Closed Safely, 10 seconds Unsupported Stance- Eyes Open Independent, 1 minute Reaching Forward Standing Safely, 2 inches Pick- Up Object From Floor Independent/Safe Look Behind Shoulder - Standing Turns Sideways Only Turning 360 Degrees Supervision/Verbal Cues Unsupported Stance, Alternating Feet on (I)- 8 Steps in 20 secs Stair Unsupported Tandem Stance Holds Tandem- 30 seconds Unilateral Leg Stance Lifts Leg/Unable to Hold Total Score Boyd Total Score (out of 56 points) 45 Boyd Impairment Rating 1 to 19% Impaired (Score 45-55 ) PT-OP-E Functional Tests Start: 07/23/23 17:35 Freq: Status: Active Protocol: Document 07/23/23 16:10 DCW (Rec: 07/23/23 17:49 DCW [id number]) Functional Tests Dynamic Gait Index (DGI) Score DGI Impairment Rating 20 to <40% Impaired (Score 15- 19) PT-OP-Q Treatments Start: 07/23/23 17:35 Freq: Status: Active Protocol: Document 08/03/23 14:30 DCW (Rec: 08/03/23 15:15 DCW [id number]) Gym Equipment Shuttle Balance Red Details WBOS (EO/EC), Staggered, Lateral Therapeutic Exercises Standing Exercises Hip Extension Standing Exercise Name Hip Extension Side bilateral Resistance Blue Comments x10 Other Exercises Resisted Ambulation Other Exercise Name Resisted side-stepping Resistance Blue Neuro Re-Education Treatment Balance Activities Hurdles Details Hurdles/Foam over uneven blue pad Comments Fwd, Tandem, Side-stepping Dynamic Gait Details Hallway ambulation Comments Head turns (120 bpm), Retro ambulation, tandem ambulation PT-OP-T Assessment and Plan Start: 07/23/23 17:35 Freq: Status: Active Protocol: Document 08/03/23 14:30 DCW (Rec: 08/03/23 15:15 DCW [id number]) Physical Therapy Assessment Impairments Impairments Balance,Functional Activities, Functional Mobility,Pain, Sensation Goals Two Impairment Pt scores as an increased falls risk on DGI () Care Home Goal (LTG) Pt to increase DGI score by at least three points to in order to demonstrate a decreased falls risk LTG Duration 09/23/23 One Impairment Pt experiences frequent stumbling and LOB Vessel Slagman Goal (LTG) Pt to report a 50% reduction in LOB over the course of one month LTG Duration 09/23/23 Assessment Summary Assessment Pt fairly significantly symptomatic with head turns today, needed brief stop and rest with each lap of hallway ambulation head turns due to feeling off balance/dizzy. Pt did report she experienced a flare-up of neuropathy in her right foot last night when out at a concert, increased numbness resulted in decreased gait quality. Physical Therapy Plan Frequency and Duration Frequency of Treatment 2x/Week Plan of Care Start Date 07/23/23 Plan of Care End Date 09/23/23 Therapeutic Interventions Therapeutic Interventions Balance Training,Gait Training ,Home Exercise Program,Manual Therapy,Neuromuscular Re- education,Patient/Caregiver Education,Self-Care/Home Management,Soft Tissue Mobilization,Therapeutic Activities,Therapeutic Exercises Next Visit Focus/Plan Next Note Type Treatment Note Next Visit Plan Balance training, vestibular challenges, ankle strengthening
--- NOTE | 2023-08-09 17:06 | PT.OPDS ---
Current Diagnoses Polyneuropathy, unspecified (08/03/23) Unsteadiness on feet (08/03/23) Other abnormalities of gait and mobility (08/03/23) Visit Care Team Role Provider Type Marisa Jaeger MD Primary Care Provider Non-Staff Referring Provider Specialty: Medical Address: [address] [place], [address] Fax: Email: Attending Provider Specialty: Address: Phone: Fax: Email: Visit Number Visit Number 4 Discharge Summary PT-OP-B Current Condition Start: 07/23/23 17:35 Freq: Status: Active Protocol: Document 07/23/23 16:10 DCW (Rec: 07/23/23 17:49 DCW [id number]) Current Condition History of Current Condition Current Complaints Neuropathy, stumbling, imbalance, decreased activity tolerance History of Current Condition Pt is a 62 year old female well known to this clinic referred to skilled physical therapy for worsening balance and gait difficulty secondary to bilateral polyneuropathy. Notes her right foot is worse than her left, but they have both gotten much worse recently. Feels she is stumbling a lot, and catching herself on bean to prevent falls. Also notes increased systemic symptoms, such as skin outbreaks, numbness in her abdomen, and a potential cyst on her right hand. PT-OP-C Subjective Start: 07/23/23 17:35 Freq: Status: Active Protocol: Document 08/03/23 14:30 DCW (Rec: 08/03/23 15:16 DCW [id number]) OP-PT Subjective Patient Comments Patient Comments Pt reports she is doing well today, got to go out last night with her family for her birthday. PT-OP-D Balance Start: 07/23/23 17:35 Freq: Status: Active Protocol: Document 07/23/23 16:10 DCW (Rec: 07/23/23 17:49 DCW [id number]) Balance Tests Boyd Balance Test Boyd Balance Test Score 45/56 Boyd Balance Assessment Evaluation Sitting to Standing Ability Independent w/out Hands Unsupported Stance Safely- 2 minutes Sitting Unsupported, Feet on Floor Safely- 2 minutes Standing to Sitting Ability Safely, Minimal Hand Use Transfer Ability Safely, Minimal Hand Use Unsupported Stance- Eyes Closed Safely, 10 seconds Unsupported Stance- Eyes Open Independent, 1 minute Reaching Forward Standing Safely, 2 inches Pick- Up Object From Floor Independent/Safe Look Behind Shoulder - Standing Turns Sideways Only Turning 360 Degrees Supervision/Verbal Cues Unsupported Stance, Alternating Feet on (I)- 8 Steps in 20 secs Stair Unsupported Tandem Stance Holds Tandem- 30 seconds Unilateral Leg Stance Lifts Leg/Unable to Hold Total Score Boyd Total Score (out of 56 points) 45 Boyd Impairment Rating 1 to 19% Impaired (Score 45-55 ) PT-OP-E Functional Tests Start: 07/23/23 17:35 Freq: Status: Active Protocol: Document 07/23/23 16:10 DCW (Rec: 07/23/23 17:49 DCW [id number]) Functional Tests Dynamic Gait Index (DGI) Score DGI Impairment Rating 20 to <40% Impaired (Score 15- 19) PT-OP-T Assessment and Plan Start: 07/23/23 17:35 Freq: Status: Active Protocol: Document 08/09/23 17:04 DCW (Rec: 08/09/23 17:06 DCW [id number]) Physical Therapy Assessment Goals Two Impairment Pt scores as an increased falls risk on DGI () Senior Living Goal (LTG) Pt to increase DGI score by at least three points to in order to demonstrate a decreased falls risk LTG Duration 09/23/23 One Impairment Pt experiences frequent stumbling and LOB Senior Living Goal (LTG) Pt to report a 50% reduction in LOB over the course of one month LTG Duration 09/23/23 Assessment Summary Assessment Pt arrived for her last schedule visit, but then just ended up preferring to speak with this PT. Patient feels she is doing well enough that she does not need further skilled intervention, has joined a gym, and feels comfortable discharging to an independent [facility] at this time. Understands that she will need a new referral in order to return at a later date. Physical Therapy Plan Frequency and Duration Frequency of Treatment 2x/Week Plan of Care Start Date 07/23/23 Plan of Care End Date 09/23/23 Discharge Physical Therapy Discharge Reasons Patient Request Next Visit Focus/Plan Next Note Type Discharge Summary
== END 2023-08-15 08:45 | disposition home or self-care (01) ==
LOC: PHYS 14:30
PROVIDERS: PCP Student in an Organized Health Care Education/Training Program; Referring Provider Student in an Organized Health Care Education/Training Program; Visit Provider Psychiatry & Neurology Neurology
DX: G62.9 Polyneuropathy, unspecified (principal); R26.81 Unsteadiness on feet; R26.89 Other abnormalities of gait and mobility
CPT/HCPCS: 97112; 97162

== ENCOUNTER → 2024-02-25 15:29 | Outpatient (CLI) | payer MEDICARE, OTHER, SELFPAY ==
--- NOTE | 2024-02-25 15:32 | DI.MG.S_ITS ---
BILATERAL DIGITAL SCREENING MAMMOGRAM 3D/2D WITH CAD: 02/25/2024 CLINICAL: Routine screening. Family history of breast cancer. Comparison is made to exams dated: 01/31/2023 mammogram, 01/18/2022 mammogram, and 07/28/2020 mammogram - [facility]. There are scattered areas of fibroglandular density in both breasts (category b / 25%-50% glandular tissue). Current study was also evaluated with a Computer Aided Detection (CAD) system. No significant masses, calcifications, or other findings are seen in either breast. There has been no significant interval change. IMPRESSION: NEGATIVE There is no mammographic evidence of malignancy. A 1 year screening mammogram is recommended. Based on the Tyrer Cuzick model (a risk assessment model) the patient's lifetime risk is 5.0% and her 10 year risk is 2.2%. According to the ACR, ACS, and NCCN guidelines, an annual breast MRI exam along with mammogram is recommended if the patient's lifetime risk is 20% or greater. This exam was interpreted at Station ID: [id number]. NOTE: For mammograms, a report in lay terms will be sent to the patient. Approximately 15% of breast malignancies will not be visualized mammographically. In the management of a palpable breast mass, a negative mammogram must not discourage biopsy of a clinically suspicious lesion. Electronically Signed By: Thiago lazar/trent:02/26/2024 08:55:35 copy to: Wilian Booth letter sent: Normal Exam ACR BI-RADS Category 1: Negative [id number]
== END ==
PROVIDERS: PCP Student in an Organized Health Care Education/Training Program; Referring Provider Student in an Organized Health Care Education/Training Program; Visit Provider Student in an Organized Health Care Education/Training Program
DX: Z12.31 Encounter for screening mammogram for malignant neoplasm of breast (principal); Z80.3 Family history of malignant neoplasm of breast; R92.323 Mammographic fibroglandular density, bilateral breasts
CPT/HCPCS: 77063; 77067

== ENCOUNTER → 2024-09-15 09:31 | Outpatient (CLI) | payer MEDICARE, OTHER, SELFPAY | LOC: RESP 09:33 | PROVIDERS: Referring Provider Student in an Organized Health Care Education/Training Program; Visit Provider Student in an Organized Health Care Education/Training Program | DX: R06.02 Shortness of breath (principal); R94.2 Abnormal results of pulmonary function studies; D86.0 Sarcoidosis of lung; J45.909 Unspecified asthma, uncomplicated | CPT/HCPCS: 94060; 94726; 94729 ==